=== PATIENT | female | born 1960 | race Caucasian/White ===

== ENCOUNTER → 2016-05-14 | Outpatient (CLI) | payer OTHER ==
[~2016-05-14] MED LIST: ALBU17IN INH; AMLO5TAB2 PO; ASMA16.7 INH; ATOR1TAB21 PO; BUSP10TA PO; CEFD300CAP PO; CETI10TA PO; CORT10TA PO; CORT5TAB2 PO; DRIS50002 PO; EFFE75CA75 PO; ESCI10TA2 PO; FLUD1TA PO; FLUTISP; FOLI1TAB2 PO; HYDR-3291 PO; HYDR5TAB59 PO; KEPP1000 PO; KEPP250T5 PO; LEXA1TAB2 PO; MONT10TA2 PO; OMEP20CA3 PO; OXYB5TA PO; PROA1AER INH; SING10TA32 PO; TRAZ50TA4 PO; TRAZO50TA PO; VITA100072 PO
[2016-05-14 14:00] LABS: BASO % 0.2 % (0.0-1.0); LARGE UNSTAINED CELL # 0.1 K/mm3 (0.0-0.4); LARGE UNSTAINED CELL % 1.9 % (0.0-4.0); LYMPH # 1.9 K/mm3 (1.5-4.5); LYMPH % 29.3 % (24.0-44.0); MEAN CORPUSCULAR HEMOGLOBIN 28.8 pg (27.0-33.0); MEAN CORPUSCULAR HGB CONC 32.5 g/dl (32.0-36.5); MEAN CORPUSCULAR VOLUME 88.8 fl (80.0-96.0); MONO # 0.3 K/mm3 (0.0-0.8); MONO % 4.9 % (0.0-5.0); NEUTROPHILS % 63.7 % (36.0-66.0); PLATELET COUNT, AUTOMATED 290 k/mm3 (150-450); RED CELL DISTRIBUTION WIDTH 12.9 % (11.5-14.5); WHITE BLOOD COUNT 6.3 K/mm3 (4.0-10.0)
[2016-05-14 14:32] LABS: FOLATE > 24.0 NG/ML; VITAMIN B12 LEVEL 1190 PG/ML
[2016-05-14 14:34] LABS: ALBUMIN 4.1 GM/DL (3.2-5.2); ALBUMIN/GLOBULIN RATIO 1.21 (1.00-1.93); ALKALINE PHOSPHATASE 131 U/L (45-117); ALT/SGPT 36 U/L (12-78); ANION GAP 7 MEQ/L (8-16); AST/SGOT 29 U/L (15-37); BILIRUBIN,TOTAL 0.3 MG/DL (0.2-1.0); BLOOD UREA NITROGEN 9 MG/DL (7-18); CALCIUM LEVEL 9.1 MG/DL (8.5-10.1); CARBON DIOXIDE LEVEL 30 MEQ/L (21-32); CHLORIDE LEVEL 103 MEQ/L (98-107); CHOLESTEROL LEVEL 163 MG/DL (<200); CREATININE FOR GFR 0.95 MG/DL (0.55-1.02); FREE T4 1.06 NG/DL (0.76-1.46); GLOMERULAR FILTRATION RATE > 60.0 (>51); GLUCOSE, FASTING 84 MG/DL (70-105); POTASSIUM SERUM 4.1 MEQ/L (3.5-5.1); SODIUM LEVEL 140 MEQ/L (136-145); TOTAL PROTEIN 7.5 GM/DL (6.4-8.2); TRIGLYCERIDES LEVEL 97 MG/DL (<150)
[2016-05-16 00:06] LABS: FREE KAPPA LIGHT CHAINS SERUM 28.03 mg/L (3.30-19.40); FREE LAMBDA LIGHT CHAINS SERUM 24.99 mg/L (5.71-26.30); KAPPA/LAMBDA RATIO SERUM 1.12 (0.26-1.65)
== END ==
LOC: M LAB 13:07
PROVIDERS: ATTEND Family Medicine
DX: Z00.00 Encounter for general adult medical examination without abnormal findings (principal)

== ENCOUNTER 2016-05-28 11:45 | Emergency (ER) | payer OTHER ==
--- NOTE | 2016-05-28 14:33 | EDDOCDS ---
Nurse's Notes [facility] Name: Amberly Moyer Age: 55 yrs Sex: Female : 1960 Arrival Date: 05/28/2016 Time: 11:45 Bed 8 Private MD: David Lopez Diagnosis: Acute upper respiratory infection, unspecified-viral Presentation: 05/28 11:51 Presenting complaint: Patient states: cough and cold for 3 to 4 days. today chest pain, kr3 'really bad'. Aspirin was not taken prior to arrival. Adult Sepsis Screening: The patient does not have new or worsening altered mentation. Patient's respiratory rate is less than 22. Systolic blood pressure is greater than 100. Patient has a qSOFA score of 0- Negative Sepsis Screen. Suicide/Homicide risk assessment- the patient denies having any suicidal and/or homicidal ideations and does not present with any other emotional, behavioral or mental health complaints. Status: Patient is not a sales representative facility services or dependent. Transition of care: patient was not received from another setting of care. 11:51 Acuity: ESTELA Level 2 kr3 11:51 Method Of Arrival: Wheelchair kr3 12:13 Red Flag criteria, patient assessed and taken directly to a bed. kr3 Triage Assessment: 11:55 General: Appears in no apparent distress, comfortable, Behavior is appropriate for age, kr3 cooperative. Pain: Location: chest Pain currently is 8 out of 10 on a pain scale. Quality of pain is described as sharp. HIV screening NA for this visit Offered previously. Cardiovascular: Chest pain is described as severe, radiates Does not radiate. episodes are continuous began at 7AM. Respiratory: Respiratory effort is even, unlabored, Reports shortness of breath cough that is. Derm: Skin is normal. Historical: - Allergies: no known allergies; - Home Meds: 1. albuterol sulfate 2.5 mg /3 mL (0.083 %) Inhl nebu 2. BuSpar 10 mg Oral tab 1 tab 3 times per day (Last dose: 05/28/2016) 3. folic acid 1 mg Oral tab once daily (Last dose: 05/28/2016) 4. Keppra 1000mg AM and 1250mg bedtime Oral tab every 12 hours (Last dose: 05/28/2016) 5. Prevacid 30 mg Oral cpDR 1 cap once daily (Last dose: 05/28/2016) 6. Singulair 10 mg Oral tab once daily (Last dose: 05/28/2016) 7. Vitamin D Unknown Oral Unknown 8. Zyrtec 10 mg Oral tab 1 tab once daily (Last dose: 05/28/2016) 9. Albuterol Unknown Inhl as needed (Last dose: 05/28/2016) - PMHx: Anxiety; Asthma; bladder problems; Depression; irregular heart beat; Seizure Disorder; - PSHx: none; - The history from nurses notes was reviewed: and I agree with what is documented. - Social history: Smoking status: Patient uses tobacco products, current every day smoker. No barriers to communication noted, The patient speaks fluent Arabic, Speaks appropriately for age. - : The pt / caregiver states he / she is not on anticoagulants. Home medication list is obtained from the patient. - Hospitalizations: : No recent hospitalization is reported. - Exposure Risk Screening:: None identified. - Immunization history:: All immunizations up-to-date. - Family history: Not pertinent. - Social history:: the patient is a non-smoker, the patient does not drink alcohol. Screenin:28 Screening information is obtained from the patient. Fall risk: No risks identified. bcj Assistance ADL's: requires no assistance with activities of daily living. Abuse/DV Screen: The patient / caregiver reports he/she is: not in a situation that causes fear, pain or injury. Nutritional screening: No deficits noted. Advance Directives: Currently, there is no health care proxy. home support is adequate. Assessment: 14:06 General: Appears in no apparent distress, comfortable, Behavior is cooperative. Pain: bcj Location: chest Pain currently is 5 out of 10 on a pain scale. Cardiovascular: Rhythm is sinus rhythm. Derm: Skin is pink, warm & dry. 14:30 General: Appears in no apparent distress, comfortable, Behavior is cooperative. mk4 Vital Signs: 11:47 BP 158 / 73; Pulse 63; Resp 18; Temp 98.6(O); Pulse Ox 98% on R/A; Weight 83.91 kg (R); ct3 Height 5 ft. 6 in. (167.64 cm) (R); Pain 8/10; 12:28 BP 144 / 77 (auto/); bcj 12:28 Pulse 62 MON; Pulse Ox 94% ; bcj 12:58 BP 190 / 75 (auto/); bcj 12:58 Pulse 60 MON; Pulse Ox 98% ; bcj 13:28 BP 152 / 71 (auto/); bcj 13:28 Pulse 58 MON; Pulse Ox 96% ; bcj 13:58 BP 154 / 72 (auto/); bcj 13:58 Pulse 54 MON; Pulse Ox 96% ; bcj 11:47 Body Mass Index 29.86 (83.91 kg, 167.64 cm) ct3 Vitals: 11:47 Log In Time: May 28, 2016 at 11:45. ct3 11:48 RN notified that patient meets Red Flag criteria. ct3 12:28 Refer to monitor trend for complete vital signs trends. [facility] ED Course: 11:47 Patient visited by Linda Evans PCA. ct3 11:47 David Lopez is Private Physician. ct3 11:47 Patient moved to Waiting ct3 11:51 Patient moved to 8 kr3 11:52 Triage Initiated kr3 12:05 Kalen Barcenas MD is Attending Physician. pc 12:05 Patient visited by Sherry Galaviz. nb2 12:05 EKG done. (by ED staff). Reviewed by Kalen Barcenas MD. nb2 12:10 Patient visited by Kalen Barcenas MD. pc 12:28 No apparent distress. Resting quietly. Awaiting disposition. bcj 12:28 The patient / caregiver is instructed regarding the plan of care and ED course. Cardiac bcj monitor on. Pulse ox on. NIBP on. 13:39 Patient visited by Aminata Grady, Quality Assurance Engineer. jlm 13:39 Assisted to bathroom. jlm 14:08 Patient visited by Kin Mullen RN. bcj 14:15 David Lopez is Referral Physician. pc 14:30 No IV's were initiated during this patient's visit. No procedures done that require mk4 assistance. Order Results: There are currently no results for this order. Outcome: 14:15 Discharge ordered by Provider. pc 14:30 Discharge Assessment: Patient awake, alert and oriented x 3. No cognitive and/or mk4 functional deficits noted. Patient verbalized understanding of disposition instructions. Patient awake and alert. Discharge Assessment: patient administered narcotics - no. The following High Risk Discharge criteria are identified: None. Condition: good Condition: stable. No special radiology studies were completed. Property sent home with patient. 14:32 Patient left the ED. mk4 Signatures: Kalen Barcenas MD MD pc Johnson, Bruce, RN RN Marie Marvin,RN RN kr3 Linda Evans, BERNICE VIDEO GAME TESTER ct3 June Schwartz RN RN mk4 Aminata Grady, Quality Assurance Engineer Unit Sherry Mcdonough [facility] MTDD
--- NOTE | 2016-05-28 14:33 | EDDOCDS ---
Physician Documentation [facility] Name: Amberly Moyer Age: 55 yrs Sex: Female : 1960 Arrival Date: 05/28/2016 Time: 11:45 Bed 8 Private MD: David Lopez Disposition: 05/28 14:14 Critical Care: Critical care not applicable. pc Disposition: 05/28/16 14:15 Discharged to Home/Self Care. Impression: Acute upper respiratory infection, unspecified - viral. - Condition is Stable. - Discharge Instructions: Upper Respiratory Infection, Adult. - Prescriptions for benzonatate 200 mg Oral Capsule - take 1 capsule by ORAL route 3 times per day As needed; 30 capsule. - Medication Reconciliation, Local Pharmacy Hours form. - Follow up: David Lopez; When: Call to arrange an appointment; Reason: Continuance of care. - Problem is an ongoing problem. - Symptoms are unchanged. HPI: 12:10 This 55 yrs old Female presents to ER via Wheelchair with complaints of Chest pc Pain. 12:10 The history is obtained from the patient. She has had a URI for 7 days, with a pc nonproductive cough. She saw her PCP and was diagnosed with a viral URI 5 days ago. She has episodes of coughing that causes her chest to hurt. She decided to come to the ED because a friend told her she was having a heart attack. 13:34 At their worst, the symptoms were a 8 out of 10. In the emergency department, the pc symptoms are a 2 out of 10. Historical: - Allergies: no known allergies; - Home Meds: 1. albuterol sulfate 2.5 mg /3 mL (0.083 %) [facility] 2. BuSpar 10 mg Oral tab 1 tab 3 times per day (Last dose: 05/28/2016) 3. folic acid 1 mg Oral tab once daily (Last dose: 05/28/2016) 4. Keppra 1000mg AM and 1250mg bedtime Oral tab every 12 hours (Last dose: 05/28/2016) 5. Prevacid 30 mg Oral cpDR 1 cap once daily (Last dose: 05/28/2016) 6. Singulair 10 mg Oral tab once daily (Last dose: 05/28/2016) 7. Vitamin D Unknown Oral Unknown 8. Zyrtec 10 mg Oral tab 1 tab once daily (Last dose: 05/28/2016) 9. Albuterol Unknown Inhl as needed (Last dose: 05/28/2016) - PMHx: Anxiety; Asthma; bladder problems; Depression; irregular heart beat; Seizure Disorder; - PSHx: none; - The history from nurses notes was reviewed: and I agree with what is documented. - Social history: Smoking status: Patient uses tobacco products, current every day smoker. No barriers to communication noted, The patient speaks fluent Danish, Speaks appropriately for age. - : The pt / caregiver states he / she is not on anticoagulants. Home medication list is obtained from the patient. - Hospitalizations: : No recent hospitalization is reported. - Exposure Risk Screening:: None identified. - Immunization history:: All immunizations up-to-date. - Family history: Not pertinent. - Social history:: the patient is a non-smoker, the patient does not drink alcohol. ROS: 13:34 All systems are negative except as listed. pc Exam: 13:34 General Appearance: no acute distress, alert. pc 13:34 EENT: normal eye inspection, ears, nose and throat normal, pharynx normal, mucous membranes moist 13:34 Neck: The exam reveals no acute abnormalities. ROM is normal and painless. No nuchal rigidity is noted.. 13:34 Respiratory: no respiratory distress, normal breath sounds, chest non-tender. 13:34 CVS: regular pulse rate, regular rhythm, normal S1 and S2, no murmurs, strong peripheral pulses. 13:34 Abdomen: soft, non-tender, no organomegaly, normal bowel sounds. 13:34 Back: normal inspection. 13:34 Skin: skin color is normal, warm, dry. 13:34 Extremities: The extremities have a grossly normal appearance, are non-tender, without acute ROM abnormalities. 13:34 Neuro: oriented x 3, cranial nerves normal as tested, no motor deficits, no sensory deficits. 13:34 Psych: normal mood. Vital Signs: 11:47 BP 158 / 73; Pulse 63; Resp 18; Temp 98.6(O); Pulse Ox 98% on R/A; Weight 83.91 kg / ct3 184.99 lbs (R); Height 5 ft. 6 in. (167.64 cm) (R); Pain 8/10; 12:28 BP 144 / 77 (auto/); bcj 12:28 Pulse 62 MON; Pulse Ox 94% ; bcj 12:58 BP 190 / 75 (auto/); bcj 12:58 Pulse 60 MON; Pulse Ox 98% ; bcj 13:28 BP 152 / 71 (auto/); bcj 13:28 Pulse 58 MON; Pulse Ox 96% ; bcj 13:58 BP 154 / 72 (auto/); bcj 13:58 Pulse 54 MON; Pulse Ox 96% ; bcj 11:47 Body Mass Index 29.86 (83.91 kg, 167.64 cm) ct3 MDM: 11:52 ECG WITH READING ER PHYS+CARDIAG ordered. EDMS 13:34 Differential Diagnosis: URI, chest pain only with coughing. pc 13:35 Plan: review triaged EKG, CXR. pc 13:36 Chest, 2 View (pa\E\lat) Ordered. EDMS 13:36 Test interpretation: EKG. pc 14:14 Data reviewed: old medical records, vital signs, nurses notes, EKG(s), all radiology pc studies and available results. Test interpretation: X-RAY - interpreted by Radiologist and personally reviewed, 2 view chest, no acute disease. The patient has been re-examined and re-evaluated. The clinical presentation did not require any ED treatment or interventions. Disposition: The historical points, examination findings, and any diagnostic results supporting the provided diagnosis, were discussed with the patient or legal guardian. The need for outpatient follow up with the provider listed on their discharge instructions was discussed. They were encouraged to return to [facility], or the nearest ED, if symptoms worsen/persist, or for any other questions/concerns. EC:36 Rate is 57 beats/min. Rhythm is irregular, Sinus bradycardia. QRS [place] is Normal. [place] pc interval is prolonged at 141 msec. QRS interval is normal. QT interval is normal. No Q waves. T waves are Normal. No ST changes noted. Clinical impression: Sinus bradycardia and RBBB. No change from previous ECG in March,. Signatures: Dispatcher [employer] EDMS Kalen Barcenas MD MD pc Robie, Kathleen,RN RN kr3 June Schwartz RN RN mk4 The chart was reviewed and I authenticate all verbal orders and agree with the evaluation and treatment provided.Corrections: (The following items were deleted from the chart) 13:35 13:34 Differential Diagnosis: URI, chest pain pc pc MTDD
--- NOTE | 2016-05-28 17:11 | REP ---
CHEST, TWO VIEWS: COMPARISON: 05/30/2011 There is no evidence of acute infiltrate. No pleural effusion is seen. The heart is normal in size. The mediastinal silhouette is unremarkable. The visualized osseous structures are intact. IMPRESSION: No acute pulmonary disease. Signed by Solis Eaton MD 05/29/2016 12:10 P
--- NOTE | 2016-05-29 08:10 | ECGEPIP ---
Stationary ECG Study [facility] - ED Test Date: 2016-05-28 Pat Name: NAVEEN SCOTT Department: Room: - Gender: F Ror Engineer: darrel : 1960 Requested By: Kalen Parekh Order Number: [id number] Reading MD: Kalen Barcenas Measurements Intervals [place] Rate: 57 P: 40 [place]: 182 QRS: 47 QRSD: 141 T: 10 QT: 437 QTc: 427 Interpretive Statements SINUS BRADYCARDIA RIGHT BUNDLE BRANCH BLOCK SIMILAR TO 03/28/16 Electronically Signed On 05-29-2016 8:10:18 EST by Kalen Barcenas
--- NOTE | 2016-05-30 15:33 | EDDOCDS ---
Physician Documentation [facility] Name: Amberly Moyer Age: 55 yrs Sex: Female : 1960 Arrival Date: 05/28/2016 Time: 11:45 Bed 8 Private MD: David Lopez Disposition: 05/28 14:14 Critical Care: Critical care not applicable. pc Disposition: 05/28/16 14:15 Discharged to Home/Self Care. Impression: Acute upper respiratory infection, unspecified - viral. - Condition is Stable. - Discharge Instructions: Upper Respiratory Infection, Adult. - Prescriptions for benzonatate 200 mg Oral Capsule - take 1 capsule by ORAL route 3 times per day As needed; 30 capsule. - Medication Reconciliation, Local Pharmacy Hours form. - Follow up: David Lopez; When: Call to arrange an appointment; Reason: Continuance of care. - Problem is an ongoing problem. - Symptoms are unchanged. HPI: 12:10 This 55 yrs old Female presents to ER via Wheelchair with complaints of Chest pc Pain. 12:10 The history is obtained from the patient. She has had a URI for 7 days, with a pc nonproductive cough. She saw her PCP and was diagnosed with a viral URI 5 days ago. She has episodes of coughing that causes her chest to hurt. She decided to come to the ED because a friend told her she was having a heart attack. 13:34 At their worst, the symptoms were a 8 out of 10. In the emergency department, the pc symptoms are a 2 out of 10. Historical: - Allergies: no known allergies; - Home Meds: 1. albuterol sulfate 2.5 mg /3 mL (0.083 %) [facility] 2. BuSpar 10 mg Oral tab 1 tab 3 times per day (Last dose: 05/28/2016) 3. folic acid 1 mg Oral tab once daily (Last dose: 05/28/2016) 4. Keppra 1000mg AM and 1250mg bedtime Oral tab every 12 hours (Last dose: 05/28/2016) 5. Prevacid 30 mg Oral cpDR 1 cap once daily (Last dose: 05/28/2016) 6. Singulair 10 mg Oral tab once daily (Last dose: 05/28/2016) 7. Vitamin D Unknown Oral Unknown 8. Zyrtec 10 mg Oral tab 1 tab once daily (Last dose: 05/28/2016) 9. Albuterol Unknown Inhl as needed (Last dose: 05/28/2016) - PMHx: Anxiety; Asthma; bladder problems; Depression; irregular heart beat; Seizure Disorder; - PSHx: none; - The history from nurses notes was reviewed: and I agree with what is documented. - Social history: Smoking status: Patient uses tobacco products, current every day smoker. No barriers to communication noted, The patient speaks fluent Taiwanese, Speaks appropriately for age. - : The pt / caregiver states he / she is not on anticoagulants. Home medication list is obtained from the patient. - Hospitalizations: : No recent hospitalization is reported. - Exposure Risk Screening:: None identified. - Immunization history:: All immunizations up-to-date. - Family history: Not pertinent. - Social history:: the patient is a non-smoker, the patient does not drink alcohol. ROS: 13:34 All systems are negative except as listed. pc Exam: 13:34 General Appearance: no acute distress, alert. pc 13:34 EENT: normal eye inspection, ears, nose and throat normal, pharynx normal, mucous membranes moist 13:34 Neck: The exam reveals no acute abnormalities. ROM is normal and painless. No nuchal rigidity is noted.. 13:34 Respiratory: no respiratory distress, normal breath sounds, chest non-tender. 13:34 CVS: regular pulse rate, regular rhythm, normal S1 and S2, no murmurs, strong peripheral pulses. 13:34 Abdomen: soft, non-tender, no organomegaly, normal bowel sounds. 13:34 Back: normal inspection. 13:34 Skin: skin color is normal, warm, dry. 13:34 Extremities: The extremities have a grossly normal appearance, are non-tender, without acute ROM abnormalities. 13:34 Neuro: oriented x 3, cranial nerves normal as tested, no motor deficits, no sensory deficits. 13:34 Psych: normal mood. Vital Signs: 11:47 BP 158 / 73; Pulse 63; Resp 18; Temp 98.6(O); Pulse Ox 98% on R/A; Weight 83.91 kg / ct3 184.99 lbs (R); Height 5 ft. 6 in. (167.64 cm) (R); Pain 8/10; 11:58 BP 158 / 86 (auto/); mk4 11:59 Pulse 60 MON; Pulse Ox 95% ; mk4 12:28 BP 144 / 77 (auto/); bcj 12:28 Pulse 62 MON; Pulse Ox 94% ; bcj 12:58 BP 190 / 75 (auto/); bcj 12:58 Pulse 60 MON; Pulse Ox 98% ; bcj 13:28 BP 152 / 71 (auto/); bcj 13:28 Pulse 58 MON; Pulse Ox 96% ; bcj 13:58 BP 154 / 72 (auto/); bcj 13:58 Pulse 54 MON; Pulse Ox 96% ; bcj 11:47 Body Mass Index 29.86 (83.91 kg, 167.64 cm) ct3 MDM: 11:52 ECG WITH READING ER PHYS+CARDIAG ordered. EDMS 13:34 Differential Diagnosis: URI, chest pain only with coughing. pc 13:35 Plan: review triaged EKG, CXR. pc 13:36 Chest, 2 View (pa\E\lat) Ordered. EDMS 13:36 Test interpretation: EKG. pc 14:14 Data reviewed: old medical records, vital signs, nurses notes, EKG(s), all radiology pc studies and available results. Test interpretation: X-RAY - interpreted by Radiologist and personally reviewed, 2 view chest, no acute disease. The patient has been re-examined and re-evaluated. The clinical presentation did not require any ED treatment or interventions. Disposition: The historical points, examination findings, and any diagnostic results supporting the provided diagnosis, were discussed with the patient or legal guardian. The need for outpatient follow up with the provider listed on their discharge instructions was discussed. They were encouraged to return to [facility], or the nearest ED, if symptoms worsen/persist, or for any other questions/concerns. 15:44 ECG/EKG was scanned into [employer] and attached to record. EC:36 Rate is 57 beats/min. Rhythm is irregular, Sinus bradycardia. QRS [place] is Normal. [place] pc interval is prolonged at 141 msec. QRS interval is normal. QT interval is normal. No Q waves. T waves are Normal. No ST changes noted. Clinical impression: Sinus bradycardia and RBBB. No change from previous ECG in March,. Signatures: Dispatcher [employer] EDMS Kalen Barcenas MD MD pc Barnhardt, Gloria, Marie MorenoRN RN kr3 June Schwartz RN RN mk4 The chart was reviewed and I authenticate all verbal orders and agree with the evaluation and treatment provided.Corrections: (The following items were deleted from the chart) 13:35 13:34 Differential Diagnosis: URI, chest pain [facility] Attachments: 15:44 ECG/EKG gb Chart Complete MTDD
--- NOTE | 2016-05-30 15:33 | EDDOCDS ---
Physician Documentation [facility] Name: Amberly Moyer Age: 55 yrs Sex: Female : 1960 Arrival Date: 05/28/2016 Time: 11:45 Bed 8 Private MD: David Lopez Disposition: 05/28 14:14 Critical Care: Critical care not applicable. pc Disposition: 05/28/16 14:15 Discharged to Home/Self Care. Impression: Acute upper respiratory infection, unspecified - viral. - Condition is Stable. - Discharge Instructions: Upper Respiratory Infection, Adult. - Prescriptions for benzonatate 200 mg Oral Capsule - take 1 capsule by ORAL route 3 times per day As needed; 30 capsule. - Medication Reconciliation, Local Pharmacy Hours form. - Follow up: David Lopez; When: Call to arrange an appointment; Reason: Continuance of care. - Problem is an ongoing problem. - Symptoms are unchanged. HPI: 12:10 This 55 yrs old Female presents to ER via Wheelchair with complaints of Chest pc Pain. 12:10 The history is obtained from the patient. She has had a URI for 7 days, with a pc nonproductive cough. She saw her PCP and was diagnosed with a viral URI 5 days ago. She has episodes of coughing that causes her chest to hurt. She decided to come to the ED because a friend told her she was having a heart attack. 13:34 At their worst, the symptoms were a 8 out of 10. In the emergency department, the pc symptoms are a 2 out of 10. Historical: - Allergies: no known allergies; - Home Meds: 1. albuterol sulfate 2.5 mg /3 mL (0.083 %) [facility] 2. BuSpar 10 mg Oral tab 1 tab 3 times per day (Last dose: 05/28/2016) 3. folic acid 1 mg Oral tab once daily (Last dose: 05/28/2016) 4. Keppra 1000mg AM and 1250mg bedtime Oral tab every 12 hours (Last dose: 05/28/2016) 5. Prevacid 30 mg Oral cpDR 1 cap once daily (Last dose: 05/28/2016) 6. Singulair 10 mg Oral tab once daily (Last dose: 05/28/2016) 7. Vitamin D Unknown Oral Unknown 8. Zyrtec 10 mg Oral tab 1 tab once daily (Last dose: 05/28/2016) 9. Albuterol Unknown Inhl as needed (Last dose: 05/28/2016) - PMHx: Anxiety; Asthma; bladder problems; Depression; irregular heart beat; Seizure Disorder; - PSHx: none; - The history from nurses notes was reviewed: and I agree with what is documented. - Social history: Smoking status: Patient uses tobacco products, current every day smoker. No barriers to communication noted, The patient speaks fluent Ghanaian, Speaks appropriately for age. - : The pt / caregiver states he / she is not on anticoagulants. Home medication list is obtained from the patient. - Hospitalizations: : No recent hospitalization is reported. - Exposure Risk Screening:: None identified. - Immunization history:: All immunizations up-to-date. - Family history: Not pertinent. - Social history:: the patient is a non-smoker, the patient does not drink alcohol. ROS: 13:34 All systems are negative except as listed. pc Exam: 13:34 General Appearance: no acute distress, alert. pc 13:34 EENT: normal eye inspection, ears, nose and throat normal, pharynx normal, mucous membranes moist 13:34 Neck: The exam reveals no acute abnormalities. ROM is normal and painless. No nuchal rigidity is noted.. 13:34 Respiratory: no respiratory distress, normal breath sounds, chest non-tender. 13:34 CVS: regular pulse rate, regular rhythm, normal S1 and S2, no murmurs, strong peripheral pulses. 13:34 Abdomen: soft, non-tender, no organomegaly, normal bowel sounds. 13:34 Back: normal inspection. 13:34 Skin: skin color is normal, warm, dry. 13:34 Extremities: The extremities have a grossly normal appearance, are non-tender, without acute ROM abnormalities. 13:34 Neuro: oriented x 3, cranial nerves normal as tested, no motor deficits, no sensory deficits. 13:34 Psych: normal mood. Vital Signs: 11:47 BP 158 / 73; Pulse 63; Resp 18; Temp 98.6(O); Pulse Ox 98% on R/A; Weight 83.91 kg / ct3 184.99 lbs (R); Height 5 ft. 6 in. (167.64 cm) (R); Pain 8/10; 11:58 BP 158 / 86 (auto/); mk4 11:59 Pulse 60 MON; Pulse Ox 95% ; mk4 12:28 BP 144 / 77 (auto/); bcj 12:28 Pulse 62 MON; Pulse Ox 94% ; bcj 12:58 BP 190 / 75 (auto/); bcj 12:58 Pulse 60 MON; Pulse Ox 98% ; bcj 13:28 BP 152 / 71 (auto/); bcj 13:28 Pulse 58 MON; Pulse Ox 96% ; bcj 13:58 BP 154 / 72 (auto/); bcj 13:58 Pulse 54 MON; Pulse Ox 96% ; bcj 11:47 Body Mass Index 29.86 (83.91 kg, 167.64 cm) ct3 MDM: 11:52 ECG WITH READING ER PHYS+CARDIAG ordered. EDMS 13:34 Differential Diagnosis: URI, chest pain only with coughing. pc 13:35 Plan: review triaged EKG, CXR. pc 13:36 Chest, 2 View (pa\E\lat) Ordered. EDMS 13:36 Test interpretation: EKG. pc 14:14 Data reviewed: old medical records, vital signs, nurses notes, EKG(s), all radiology pc studies and available results. Test interpretation: X-RAY - interpreted by Radiologist and personally reviewed, 2 view chest, no acute disease. The patient has been re-examined and re-evaluated. The clinical presentation did not require any ED treatment or interventions. Disposition: The historical points, examination findings, and any diagnostic results supporting the provided diagnosis, were discussed with the patient or legal guardian. The need for outpatient follow up with the provider listed on their discharge instructions was discussed. They were encouraged to return to [facility], or the nearest ED, if symptoms worsen/persist, or for any other questions/concerns. 15:44 ECG/EKG was scanned into noodls and attached to record. EC:36 Rate is 57 beats/min. Rhythm is irregular, Sinus bradycardia. QRS [place] is Normal. TN pc interval is prolonged at 141 msec. QRS interval is normal. QT interval is normal. No Q waves. T waves are Normal. No ST changes noted. Clinical impression: Sinus bradycardia and RBBB. No change from previous ECG in March,. Signatures: Dispatcher MedHo EDMS Kalen Barcenas MD MD pc Barnhardt, Gloria, Marie MorenoRN RN kr3 June Schwartz RN RN mk4 The chart was reviewed and I authenticate all verbal orders and agree with the evaluation and treatment provided.Corrections: (The following items were deleted from the chart) 13:35 13:34 Differential Diagnosis: URI, chest pain [facility] Attachments: 15:44 ECG/EKG gb Chart Complete MTDD
--- NOTE | 2016-05-30 15:33 | EDDOCDS ---
Nurse's Notes [facility] Name: Amberly Scott Age: 55 yrs Sex: Female : 1960 Arrival Date: 05/28/2016 Time: 11:45 Bed 8 Private MD: David Lopez Diagnosis: Acute upper respiratory infection, unspecified-viral Presentation: 05/28 11:51 Presenting complaint: Patient states: cough and cold for 3 to 4 days. today chest pain, kr3 'really bad'. Aspirin was not taken prior to arrival. Adult Sepsis Screening: The patient does not have new or worsening altered mentation. Patient's respiratory rate is less than 22. Systolic blood pressure is greater than 100. Patient has a qSOFA score of 0- Negative Sepsis Screen. Suicide/Homicide risk assessment- the patient denies having any suicidal and/or homicidal ideations and does not present with any other emotional, behavioral or mental health complaints. 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 Transition of care: patient was not received from another setting of care. 11:51 Acuity: ESTELA Level 2 kr3 11:51 Method Of Arrival: Wheelchair kr3 12:13 Red Flag criteria, patient assessed and taken directly to a bed. kr3 Triage Assessment: 11:55 General: Appears in no apparent distress, comfortable, Behavior is appropriate for age, kr3 cooperative. Pain: Location: chest Pain currently is 8 out of 10 on a pain scale. Quality of pain is described as sharp. HIV screening NA for this visit Offered previously. Cardiovascular: Chest pain is described as severe, radiates Does not radiate. episodes are continuous began at 7AM. Respiratory: Respiratory effort is even, unlabored, Reports shortness of breath cough that is. Derm: Skin is normal. Historical: - Allergies: no known allergies; - Home Meds: 1. albuterol sulfate 2.5 mg /3 mL (0.083 %) Inhl nebu 2. BuSpar 10 mg Oral tab 1 tab 3 times per day (Last dose: 05/28/2016) 3. folic acid 1 mg Oral tab once daily (Last dose: 05/28/2016) 4. Keppra 1000mg AM and 1250mg bedtime Oral tab every 12 hours (Last dose: 05/28/2016) 5. Prevacid 30 mg Oral cpDR 1 cap once daily (Last dose: 05/28/2016) 6. Singulair 10 mg Oral tab once daily (Last dose: 05/28/2016) 7. Vitamin D Unknown Oral Unknown 8. Zyrtec 10 mg Oral tab 1 tab once daily (Last dose: 05/28/2016) 9. Albuterol Unknown Inhl as needed (Last dose: 05/28/2016) - PMHx: Anxiety; Asthma; bladder problems; Depression; irregular heart beat; Seizure Disorder; - PSHx: none; - The history from nurses notes was reviewed: and I agree with what is documented. - Social history: Smoking status: Patient uses tobacco products, current every day smoker. No barriers to communication noted, The patient speaks fluent Romanian, Speaks appropriately for age. - : The pt / caregiver states he / she is not on anticoagulants. Home medication list is obtained from the patient. - Hospitalizations: : No recent hospitalization is reported. - Exposure Risk Screening:: None identified. - Immunization history:: All immunizations up-to-date. - Family history: Not pertinent. - Social history:: the patient is a non-smoker, the patient does not drink alcohol. Screenin:28 Screening information is obtained from the patient. Fall risk: No risks identified. bcj Assistance ADL's: requires no assistance with activities of daily living. Abuse/DV Screen: The patient / caregiver reports he/she is: not in a situation that causes fear, pain or injury. Nutritional screening: No deficits noted. Advance Directives: Currently, there is no health care proxy. home support is adequate. Assessment: 14:06 General: Appears in no apparent distress, comfortable, Behavior is cooperative. Pain: bcj Location: chest Pain currently is 5 out of 10 on a pain scale. Cardiovascular: Rhythm is sinus rhythm. Derm: Skin is pink, warm & dry. 14:30 General: Appears in no apparent distress, comfortable, Behavior is cooperative. mk4 Vital Signs: 11:47 BP 158 / 73; Pulse 63; Resp 18; Temp 98.6(O); Pulse Ox 98% on R/A; Weight 83.91 kg (R); ct3 Height 5 ft. 6 in. (167.64 cm) (R); Pain 8/10; 11:58 BP 158 / 86 (auto/); mk4 11:59 Pulse 60 MON; Pulse Ox 95% ; mk4 12:28 BP 144 / 77 (auto/); bcj 12:28 Pulse 62 MON; Pulse Ox 94% ; bcj 12:58 BP 190 / 75 (auto/); bcj 12:58 Pulse 60 MON; Pulse Ox 98% ; bcj 13:28 BP 152 / 71 (auto/); bcj 13:28 Pulse 58 MON; Pulse Ox 96% ; bcj 13:58 BP 154 / 72 (auto/); bcj 13:58 Pulse 54 MON; Pulse Ox 96% ; bcj 11:47 Body Mass Index 29.86 (83.91 kg, 167.64 cm) ct3 Vitals: 11:47 Log In Time: May 28, 2016 at 11:45. ct3 11:48 RN notified that patient meets Red Flag criteria. ct3 12:28 Refer to monitor trend for complete vital signs trends. j ED Course: 11:47 Patient visited by Linda Evans PCA. ct3 11:47 David Lopez is Private Physician. ct3 11:47 Patient moved to Waiting ct3 11:51 Patient moved to 8 kr3 11:52 Triage Initiated kr3 12:05 Kalen Barcenas MD is Attending Physician. pc 12:05 Patient visited by Sherry Galaviz. nb2 12:05 EKG done. (by ED staff). Reviewed by Kalen Barcenas MD. nb2 12:10 Patient visited by Kalen Barcenas MD. pc 12:28 No apparent distress. Resting quietly. Awaiting disposition. bcj 12:28 The patient / caregiver is instructed regarding the plan of care and ED course. Cardiac j monitor on. Pulse ox on. NIBP on. 13:39 Patient visited by Aminata Grady, Athletic Turf Worker. jlm 13:39 Assisted to bathroom. jlm 14:08 Patient visited by Kin Mullen, TASHA. bcj 14:15 David Lopez is Referral Physician. pc 14:30 No IV's were initiated during this patient's visit. No procedures done that require 4 assistance. 15:44 ECG/EKG was scanned into [employer] and attached to record. gb 17:41 Chest, 2 View (pa\E\lat) Returned. EDMS 05/29 08:15 EKG-ADULT Returned. EDMS Order Results: Radiology Order: EKG-ADULT Test: EKG-ADULT REASON FOR EXAMINATION: Chest Pain; Stationary ECG Study; [facility] - ED; ; Test Date: 2016-05-28; Pat Name: AMEBRLY SCOTT Department:; Room: -; Gender: F Rippler: darrel; : 1960 Requested By: Kalen Parekh; Order Number: [id number] Reading MD: Kalen Barcenas; Measurements; Intervals [place]; Rate: 57 P: 40; IN: 182 QRS: 47; QRSD: 141 T: 10; QT: 437; QTc: 427; Interpretive Statements; SINUS BRADYCARDIA; RIGHT BUNDLE BRANCH BLOCK; SIMILAR TO 03/28/16; Electronically Signed On 05-29-2016 8:10:18 EST by Kalen Barcenas; Radiology Order: Chest, 2 View (pa\E\lat) Test: Chest, 2 View (pa\E\lat) REASON FOR EXAMINATION: Cough; CHEST, TWO VIEWS:; ; COMPARISON: 05/30/2011; ; There is no evidence of acute infiltrate.; ; No pleural effusion is seen.; ; The heart is normal in size.; ; The mediastinal silhouette is unremarkable.; ; The visualized osseous structures are intact.; ; IMPRESSION:; ; No acute pulmonary disease.; ; ; Signed by; Solsi Eaton MD 05/29/2016 12:10 P; Outcome: 05/28 14:15 Discharge ordered by Provider. 14:30 Discharge Assessment: Patient awake, alert and oriented x 3. No cognitive and/or mk4 functional deficits noted. Patient verbalized understanding of disposition instructions. Patient awake and alert. Discharge Assessment: patient administered narcotics - no. The following High Risk Discharge criteria are identified: None. Condition: good Condition: stable. No special radiology studies were completed. Property sent home with patient. 14:32 Patient left the ED. mk4 Signatures: Dispatcher [employer] EDAZ Kalen Barcenas MD MD pc Johnson, Bruce, RN RN Kate Rivera, Reg Marie Marcial,RN RN kr3 Linda Evans, MUSHROOM FARMER MUSHROOM FARMER ct3 June Schwartz RN RN [email or web address] Aminata Grady, Athletic Turf Worker Unit Pete Mcdonoughle nb2 Chart Complete MTDD
== END 2016-05-28 14:32 | disposition home or self-care (01) ==
LOC: M ED 11:45
DX: J06.9 Acute upper respiratory infection, unspecified (principal); R00.1 Bradycardia, unspecified; I45.10 Unspecified right bundle-branch block; J45.909 Unspecified asthma, uncomplicated; G40.909 Epilepsy, unspecified, not intractable, without status epilepticus; F41.9 Anxiety disorder, unspecified; N32.9 Bladder disorder, unspecified; Z79.899 Other long term (current) drug therapy

== ENCOUNTER → 2016-08-21 | Outpatient (CLI) | payer OTHER ==
[~2016-08-21] VITALS: Ht 172.7 cm; Wt 90.7 kg
[~2016-08-21] MED LIST changes: +LIDOCAINE 2% INJ 100 MG/5 ML SDV (FOR ANES.) As Ordered ONE; +PROPOFOL 200 MG/20 ML VIAL As Ordered ONE
--- NOTE | 2016-08-21 14:36 | ROOR ---
Patient Name: Amberly Moyer Procedure Date: 08/21/2016 1:47 PM Date of : 1960 Age: 55 Room: [facility] Gender: Female Note Status: Finalized Procedure: Upper GI endoscopy Indications: Functional Dyspepsia, Suspected esophageal reflux Providers: Martín Everett MD Referring MD: COCO TRINIDAD MD Requesting Provider: COCO TRINIDAD MD Medicines: Monitored Anesthesia Care Complications: No immediate complications. Procedure: Pre-Anesthesia Assessment: - Prior to the procedure, a History and Physical was performed, and patient medications and allergies were reviewed. The patient is competent. The risks and benefits of the procedure and the sedation options and risks were discussed with the patient. All questions were answered and informed consent was obtained. Patient identification and proposed procedure were verified by the physician, the nurse and the anesthesiologist in the endoscopy suite. Mental Status Examination: alert and oriented. Airway Examination: normal oropharyngeal airway and neck mobility. Respiratory Examination: clear to auscultation. CV Examination: normal. Prophylactic Antibiotics: The patient does not require prophylactic antibiotics. Prior Anticoagulants: The patient has taken no previous anticoagulant or antiplatelet agents. ASA Grade Assessment: II - A patient with mild systemic disease. After reviewing the risks and benefits, the patient was deemed in satisfactory condition to undergo the procedure. The anesthesia plan was to use monitored anesthesia care (MAC). Immediately prior to administration of medications, the patient was re-assessed for adequacy to receive sedatives. The heart rate, respiratory rate, oxygen saturations, blood pressure, adequacy of pulmonary ventilation, and response to care were monitored throughout the procedure. The physical status of the patient was re-assessed after the procedure. The Endoscope was introduced through the mouth, and advanced to the second part of duodenum. The upper GI endoscopy was technically difficult and complex due to poor endoscopic visualization and significant looping. The patient tolerated the procedure well. Findings: The examined esophagus was normal. Estimated blood loss: none. The entire examined stomach was normal. Estimated blood loss: none. Estimated blood loss: none. The second portion of the duodenum was normal. Impression: - Normal esophagus. - Normal stomach. - Normal second portion of the duodenum. - No specimens collected. Recommendation: - Discharge patient to home (ambulatory). - Continue present medications. Martín Everett MD Martín Everett MD 08/21/2016 2:36:34 PM This report has been signed electronically. Number of Addenda: 0 Note Initiated On: 08/21/2016 1:47 PM Estimated Blood Loss: Estimated blood loss: none.
--- NOTE | 2016-08-21 14:39 | ROOR ---
Patient Name: Amberly Moyer Procedure Date: 08/21/2016 1:52 PM Date of : 1960 Age: 55 Room: [facility] Gender: Female Note Status: Finalized Procedure: Colonoscopy Indications: High risk colon cancer surveillance: Personal history of colonic polyps Providers: Martín Everett MD Referring MD: COCO TRINIDAD MD Requesting Provider: Medicines: Monitored Anesthesia Care Complications: No immediate complications. Procedure: Pre-Anesthesia Assessment: - Prior to the procedure, a History and Physical was performed, and patient medications and allergies were reviewed. The patient is competent. The risks and benefits of the procedure and the sedation options and risks were discussed with the patient. All questions were answered and informed consent was obtained. Patient identification and proposed procedure were verified by the physician, the nurse and the anesthesiologist in the endoscopy suite. Mental Status Examination: alert and oriented. Airway Examination: normal oropharyngeal airway and neck mobility. Respiratory Examination: clear to auscultation. CV Examination: normal. Prophylactic Antibiotics: The patient does not require prophylactic antibiotics. Prior Anticoagulants: The patient has taken no previous anticoagulant or antiplatelet agents. ASA Grade Assessment: II - A patient with mild systemic disease. After reviewing the risks and benefits, the patient was deemed in satisfactory condition to undergo the procedure. The anesthesia plan was to use monitored anesthesia care (MAC). Immediately prior to administration of medications, the patient was re-assessed for adequacy to receive sedatives. The heart rate, respiratory rate, oxygen saturations, blood pressure, adequacy of pulmonary ventilation, and response to care were monitored throughout the procedure. The physical status of the patient was re-assessed after the procedure. The Colonoscope was introduced through the anus and advanced to the cecum, identified by appendiceal orifice and ileocecal valve. The colonoscopy was technically difficult and complex due to poor endoscopic visualization and significant looping. The patient tolerated the procedure well. The quality of the bowel preparation was fair. Findings: The perianal and digital rectal examinations were normal. Multiple medium-mouthed diverticula were found in the sigmoid colon, descending colon and splenic flexure. The entire examined colon appeared normal. Impression: - Preparation of the colon was fair. - Diverticulosis in the sigmoid colon, in the descending colon and at the splenic flexure. - The entire examined colon is normal. - No specimens collected. Recommendation: - Discharge patient to home (ambulatory). - Repeat colonoscopy in 5 years for surveillance. Martín Everett MD Martín Everett MD 08/21/2016 2:38:50 PM This report has been signed electronically. Number of Addenda: 0 Note Initiated On: 08/21/2016 1:52 PM Estimated Blood Loss: Estimated blood loss: none.
[2016-08-21 15:08] VITALS: BP 130/80
== END ==
LOC: M OPP 12:55
PROVIDERS: ATTEND Surgery
DX: Z12.11 Encounter for screening for malignant neoplasm of colon (principal); Z86.010 Personal history of colon polyps; Z80.0 Family history of malignant neoplasm of digestive organs; K57.30 Diverticulosis of large intestine without perforation or abscess without bleeding; K30 Functional dyspepsia; K21.9 Gastro-esophageal reflux disease without esophagitis; F17.200 Nicotine dependence, unspecified, uncomplicated; J45.909 Unspecified asthma, uncomplicated; G40.909 Epilepsy, unspecified, not intractable, without status epilepticus; D53.1 Other megaloblastic anemias, not elsewhere classified; E78.5 Hyperlipidemia, unspecified; F32.9 Major depressive disorder, single episode, unspecified; F41.9 Anxiety disorder, unspecified; E55.9 Vitamin D deficiency, unspecified; G47.00 Insomnia, unspecified; Z79.899 Other long term (current) drug therapy; Z91.011 Allergy to milk products

== ENCOUNTER 2016-09-01 21:50 | Inpatient (IN) | payer OTHER ==
[~2016-09-01] VITALS: Ht 172.7 cm; Wt 92.9 kg
[~2016-09-01 21:50] MED LIST changes: -LIDOCAINE 2% INJ 100 MG/5 ML SDV (FOR ANES.) As Ordered ONE; -PROPOFOL 200 MG/20 ML VIAL As Ordered ONE
[2016-09-01] MEDS ORDERED: GI COCKTAIL 50ML BTL(HYOSCYAMINE/MAALOX/LIDOCAINE VISCOUS)(1:3:1) PO ONE (22:45)
[2016-09-01] MEDS ORDERED: SUCRALFATE 1 GM TAB PO ONE (22:45)
[2016-09-01] MEDS ORDERED: ONDANSETRON 4MG/2ML VIAL (J2405) IV ONE (22:45)
[2016-09-01] MEDS ORDERED: GASTROGRAFIN SOLUTION 30ML (Q9963) As Ordered ONE (22:52)
[2016-09-01] MEDS ORDERED: GASTROGRAFIN SOLUTION 30ML (Q9963) PO ONE ×2 (23:00→23:30)
[2016-09-01 23:12] LABS: BASO % 0.2 % (0.0-1.0); EOS % 0.4 % (0.0-3.0); LARGE UNSTAINED CELL # 0.1 K/mm3 (0.0-0.4); LARGE UNSTAINED CELL % 1.5 % (0.0-4.0); LYMPH # 1.7 K/mm3 (1.5-4.5); LYMPH % 20.6 % (24.0-44.0); MEAN CORPUSCULAR HEMOGLOBIN 29.3 pg (27.0-33.0); MEAN CORPUSCULAR HGB CONC 34.9 g/dl (32.0-36.5); MONO # 0.8 K/mm3 (0.0-0.8); MONO % 10.5 % (0.0-5.0); NEUTROPHILS # 5.2 K/mm3 (1.8-7.7); NEUTROPHILS % 66.8 % (36.0-66.0); PLATELET COUNT, AUTOMATED 343 k/mm3 (150-450); RED CELL DISTRIBUTION WIDTH 12.9 % (11.5-14.5); WHITE BLOOD COUNT 7.7 K/mm3 (4.0-10.0)
[2016-09-01] MEDS ORDERED: ONDANSETRON 4 MG ORAL DISINTEGRATING TAB (S0181) PO ONE (23:15)
[2016-09-01 23:36] LABS: ALBUMIN 4.1 GM/DL (3.2-5.2); ALBUMIN/GLOBULIN RATIO 1.14 (1.00-1.93); ALKALINE PHOSPHATASE 130 U/L (45-117); ALT/SGPT 27 U/L (12-78); ANION GAP 7 MEQ/L (8-16); AST/SGOT 30 U/L (15-37); BILIRUBIN,DIRECT 0.1 MG/DL (0.0-0.2); BILIRUBIN,TOTAL 0.5 MG/DL (0.2-1.0); BLOOD UREA NITROGEN 3 MG/DL (7-18); CALCIUM LEVEL 9.1 MG/DL (8.5-10.1); CARBON DIOXIDE LEVEL 28 MEQ/L (21-32); CHLORIDE LEVEL 94 MEQ/L (98-107); GLOMERULAR FILTRATION RATE > 60.0 (>51); GLUCOSE, FASTING 109 MG/DL (70-105); POTASSIUM SERUM 3.4 MEQ/L (3.5-5.1); SODIUM LEVEL 129 MEQ/L (136-145); TOTAL PROTEIN 7.7 GM/DL (6.4-8.2)
[2016-09-01] MEDS ORDERED: KCL 20MEQ in NS 1000ML 1,000 ML IV SCH (23:45)
[2016-09-01] MEDS ORDERED: POTASSIUM CHLORIDE 10 MEQ SR TABLET PO ONE (23:45)
[2016-09-02] MEDS ORDERED: ISOVUE-370 76% 100ML VIAL (Q9967) As Ordered ONE (00:33)
[2016-09-02 00:59] LABS: T UPTAKE 38 % (30-39)
[2016-09-02 01:08] LABS: OSMOLALITY URINE 106 MOSM/KG (500-800)
--- NOTE | 2016-09-02 02:30 | REPUSA ---
CLINICAL HISTORY: Abdominal pain. Nausea. TECHNIQUE: Multiple axial, sagittal and coronal CT images were obtained through the abdomen and pelvi s after administration of oral and intravenous contrast material. Images were obtained before and aft er IV contrast administration. COMMENTS: The liver is of uniform decreased attenuation without mass or defect. There is no intra or extrahepat ic biliary ductal dilatation. The spleen is normal. The gallbladder is within normal limits. The panc reas is of normal contour and attenuation characteristics. There is no evidence of adrenal mass. Both kidneys demonstrate prompt and equal nephrograms. The kidneys are normal in size, shape and conf iguration. There is no evidence of renal or ureteral mass. No renal or ureteral calculi are identifie d. There is no hydroureter or hydronephrosis. No evidence for appendicitis. There is mild proximal small bowel wall thickening. No evidence for sm all or large bowel obstruction. There is no evidence of abdominal ascites or lymphadenopathy. There is no evidence of intrinsic or extrinsic bladder mass. There is no pelvic ascites or lymphadeno shakira. Prior hysterectomy. Uncomplicated colonic diverticulosis. Mild large bowel fecal stasis. Images of the lung bases show no evidence of pleural or parenchymal mass. There are no pleural effusi ons. The bony structures are free of lytic or blastic lesions. Small sliding-type hiatal hernia. IMPRESSION: Mild changes of enteritis. Small sliding hiatal hernia. Fatty liver infiltration. Thank you for your kind referral of this patient.
[2016-09-02] MEDS ORDERED: MORPHINE 2 MG/ML 1ML SYRINGE IV PRN (03:15)
[2016-09-02] MEDS ORDERED: PERCOCET 5MG/325MG TAB PO PRN (03:15)
[2016-09-02] MEDS ORDERED: ONDANSETRON 4MG/2ML VIAL (J2405) IV PRN (03:15)
[2016-09-02] MEDS ORDERED: ACETAMINOPHEN TAB 650MG DOSE (2X325MG) PO PRN (03:15)
[2016-09-02] MEDS ORDERED: LEXA1TAB2 PO (03:17)
[2016-09-02] MEDS ORDERED: BUSP10TA PO (03:17)
[2016-09-02] MEDS ORDERED: SENOKOT S TAB PO PRN (03:30)
[2016-09-02] MEDS ORDERED: FLEET ENEMA PR PRN (03:30)
[2016-09-02] MEDS ORDERED: MOM 30ML SUSPENSION UDC PO PRN (03:30)
[2016-09-02 03:33] LABS: URIC ACID 4.6 MG/DL (2.6-6.0)
[2016-09-02] MEDS ORDERED: OXYB10TA PO (03:33)
[2016-09-02] MEDS ORDERED: INCR1INH IN (03:34)
[2016-09-02] MEDS ORDERED: SENOKOT S TAB PO ONE (04:15)
[2016-09-02] MEDS ORDERED: MOM 30ML SUSPENSION UDC PO ONE (04:15)
[2016-09-02] MEDS: NS 1,000 ML IV SCH ×2 (04:15→13:15)
[2016-09-02] MEDS ORDERED: ALBUTEROL 90 MCG/ACT 8GM HFA INHALER INH PRN (04:15)
[2016-09-02] MEDS: CIPROFLOXACIN 400 MG in APPROPRIATE DILUENT 1 EA IV SCH ×2 (04:26→16:02)
[2016-09-02] MEDS ORDERED: hydrOXYzine 25 MG TAB PO PRN (04:30)
[2016-09-02] MEDS ORDERED: IPRATROPIUM 0.5MG/ALBUTEROL 2.5MG INH SOL UD 3ML (DUONEB)(J7620) NEB PRN (04:30)
[2016-09-02] MEDS ORDERED: hydrOXYzine 25 MG TAB PO ONE (04:30)
[2016-09-02] MEDS ORDERED: GI COCKTAIL 50ML BTL(HYOSCYAMINE/MAALOX/LIDOCAINE VISCOUS)(1:3:1) PO PRN (04:45)
[2016-09-02 05:08] LABS: BASO % 0.1 % (0.0-1.0); LARGE UNSTAINED CELL # 0.1 K/mm3 (0.0-0.4); LARGE UNSTAINED CELL % 2.3 % (0.0-4.0); LYMPH # 2.1 K/mm3 (1.5-4.5); LYMPH % 38.6 % (24.0-44.0); MEAN CORPUSCULAR HEMOGLOBIN 29.2 pg (27.0-33.0); MEAN CORPUSCULAR HGB CONC 34.6 g/dl (32.0-36.5); MEAN CORPUSCULAR VOLUME 84.6 fl (80.0-96.0); MONO # 0.6 K/mm3 (0.0-0.8); MONO % 10.8 % (0.0-5.0); NEUTROPHILS # 2.5 K/mm3 (1.8-7.7); NEUTROPHILS % 48.1 % (36.0-66.0); PLATELET COUNT, AUTOMATED 346 k/mm3 (150-450); RED CELL DISTRIBUTION WIDTH 13.1 % (11.5-14.5); WHITE BLOOD COUNT 5.1 K/mm3 (4.0-10.0)
[2016-09-02 05:32] LABS: ANION GAP 10 MEQ/L (8-16); BLOOD UREA NITROGEN 3 MG/DL (7-18); CALCIUM LEVEL 9.1 MG/DL (8.5-10.1); CARBON DIOXIDE LEVEL 27 MEQ/L (21-32); CHLORIDE LEVEL 96 MEQ/L (98-107); CREATININE FOR GFR 0.76 MG/DL (0.55-1.02); GLOMERULAR FILTRATION RATE > 60.0 (>51); GLUCOSE, FASTING 109 MG/DL (70-105); MAGNESIUM LEVEL 2.3 MG/DL (1.8-2.4); POTASSIUM SERUM 3.8 MEQ/L (3.5-5.1); SODIUM LEVEL 133 MEQ/L (136-145)
[2016-09-02 05:36] VITALS: BP 111/67
[2016-09-02] MEDS: metroNIDAZOLE 500 MG in APPROPRIATE DILUENT 1 EA IV SCH ×3 (06:03→20:41)
--- NOTE | 2016-09-02 07:11 | ECGEPIP ---
Stationary ECG Study [facility] - ED Test Date: 2016-09-01 Pat Name: NAVEEN SCOTT Department: Room: [place] [address] Gender: F Cv/Cvn Cv Tsc System Operator: kanika : 1960 Requested By: ABHISHEK MORGAN Order Number: [id number] Reading MD: Kalen Barcenas Measurements Intervals [place] Rate: 76 P: 47 AK: 199 QRS: 49 QRSD: 150 T: -12 QT: 413 QTc: 467 Interpretive Statements SINUS RHYTHM RIGHT BUNDLE BRANCH BLOCK SIMILAR TO 05/28/16 Electronically Signed On 09-02-2016 7:11:16 EDT by Kalen Barcenas
[2016-09-02 07:51] VITALS: BP 118/67
--- NOTE | 2016-09-02 08:10 | HPE ---
DATE OF ADMISSION: 09/01/2016 PRIMARY CARE PHYSICIAN: Dr. David Lopez. INPATIENT HOSPITALIST ATTENDING: Dr. Mc Snow. CHIEF COMPLAINT: Abdominal pain. HISTORY OF PRESENT ILLNESS: This is a 55-year-old female with history significant for diverticular disease on colonoscopy by Dr. Everett 08/21/2016 with normal EGD, sliding type hiatal hernia on CT abdomen and pelvis 09/02/2016, hypertension, depression, anxiety, seizure disorder, asthma, dyslipidemia, vitamin D deficiency, appendectomy, partial hysterectomy and foot surgery presented to the emergency room with ongoing periumbilical abdominal pain for the past 2 months with 2 day history of increasing pain described as crampy and one episode of nausea and vomiting at home. Patient did not feel well all day prior to presentation. With every meal, she felt like her throat was closing, thought that she was having a seizure and decided to come to the emergency room for evaluation. Patient otherwise denies any fever or chills, weight gain, weight loss, dysuria, urgency, frequency, chest pain, pressure, tightness, shortness of breath, palpitations, lightheadedness, near syncope, changes in vision, headaches, nasal congestion, sore throat. Previous EGD was negative with CT showing a small hiatal hernia. Patient is on chronic Prilosec. She has been having some constipation, no diarrhea. No radiation of her abdominal pain in the periumbilical area. No medication taken at home. She also complains of bilateral feet pruritus and burning sensation between the toes not previously treated. Hospitalist was called for admission for her enteritis with periumbilical pain and evaluation of hyponatremia, sodium level of 129. PAST MEDICAL HISTORY: Seizure disorder. Asthma. Reflux disease. 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 Hyperlipidemia. Depression. Anxiety. Vitamin D deficiency. Insomnia. Allergic rhinitis. PAST SURGICAL HISTORY: Bilateral 5th toe amputation due to defect. Hysterectomy, still has tube and ovaries. Colonoscopy times four. Breast biopsy on the left, one on the right, benign. Appendectomy age 17. Recent EGD, colonoscopy showing diverticular disease, small sliding type hiatal hernia on chronic Prilosec. HOME MEDICATIONS: Vitamin D 50,000 units weekly. Incruse Ellipta 62.5 inhaled daily Atorvastatin 20 mg daily at bedtime BuSpar 10 mg three times daily Cetirizine 10 mg daily every morning Vitamin B12 1000 mcg daily folic acid 1 mg daily Keppra 1000 mg twice daily, 250 mg daily at bedtime Montelukast 10 mg daily at bedtime omeprazole 20 daily every morning Oxybutynin 10 mg daily at bedtime ALLERGIES: No know drug allergies. FAMILY HISTORY: One brother . Father due to diabetes, hypertension, heart disease. Mother due to colon cancer, had hypertension and coronary artery disease (CAD). SOCIAL HISTORY: Previously smoked a pack a day for 36 years. No alcohol or drug use. REVIEW OF SYSTEMS: Twelve point system aside from positive findings on HPI. PHYSICAL EXAMINATION: Blood pressure 136/80, pulse 72 sinus, respiratory 18, afebrile, 96% on room air. Generally, patient is awake, alert, oriented times three, answering questions appropriately. Anicteric sclera, no jaundice. Pupils round, reactive to light and accommodation. Extraocular muscles are intact. Normocephalic, atraumatic. Moist mucous membranes. Neck supple, full range of motion. No cervical lymphadenopathy, thyromegaly or jugular venous distention. Lungs are clear to auscultation, no wheezing, rales or rhonchi. Heart: S1, S2. Sinus rhythm. Abdomen: Soft. Slightly distended. No rebound, guarding. Positive bowel sounds all four quadrants. Slightly tender in the periumbilical area but no rebound, guarding. No CVA tenderness. Extremities: No cyanosis, clubbing or pitting edema. Some mild erythema between the toes. No rash or papular eruptions are noted. Bilateral fifth toe amputations due to defect. White count 7.7, hemoglobin 13, hematocrit 37, platelet count 343. Sodium 129, baseline sodium 140, potassium 3.4, chloride 94, bicarbonate 28, BUN 3, creatinine 0.8, glucose 109. Lactic acid 1.2. Calcium 9.1. Total bilirubin 0.5, direct bilirubin 0.1, AST 30, ALT 27, alkaline phosphatase 130, total CK 154, troponin less than 0.02, total protein 7.7, albumin 4.1, lipase 59, TSH 2. Microbiology: None. CT abdomen and pelvis: Mild enteritis, fecal stasis, small sliding hiatal hernia. ASSESSMENT AND PLAN: This is a 55-year-old female with prior history of seizure disorder, depression, anxiety, asthma, reflux, megaloblastic anemia secondary to folic acid deficiency, depression, anxiety, vitamin D deficiency, insomnia, allergic rhinitis, previous EGD was negative, CT shows small sliding hiatal hernia, colonoscopy with diverticular disease, bilateral fifth toe amputation due to defect, admitted due to complaints of periumbilical pain, nausea, vomiting, found to have hyponatremia, sodium level of 129, hypokalemia, potassium of 3.4. CT abdomen and pelvis showing enteritis. Patient will be admitted for observation assigned to Dr. Mc Snow. IMPRESSION: 1. Abdominal pain secondary to enteritis and fecal stasis. Patient admits to having some constipation. EGD colonoscopy were unremarkable on 08/21/[address] Everett. Patient was found to have a small sliding type hiatal hernia on CT abdomen and pelvis. May benefit from continuation of proton pump inhibitor and potentially Carafate 1 gram before meals and at bedtime for symptomatic relief. GI cocktail as needed. Patient will be given IV Cipro and Flagyl to be continued orally as outpatient once tolerates an oral diet. Currently on intravenous fluids and liquid diet. For fecal stasis, patient has been given a bowel regimen and encouraged to ambulate. 2. Hyponatremia most likely secondary to vomiting and nausea, therefore will recheck basic metabolic panel, recheck sodium every 6 hours until normalized, avoid sudden increase in sodium more than 10 mEq of over 24 hour period. TSH is within normal. Chest x-ray: No acute abnormalities. 3. History of seizure disorder, resume home dose of Keppra. Check Levetiracetam level. 4. Tinea pedis. Tolnaftate topically for 10 days. 5. History of asthma, resume home dose of Singulair 10 mg daily. Nebulizer treatments as needed. 6. Hyperlipidemia, continue on Lipitor. Check lipid profile in the morning. 7. Urine incontinence. Continue Ditropan. 8. Allergic rhinitis, continue Zyrtec. 9. Megaloblastic secondary to folic acid deficiency. Continue with folic acid and vitamin B12. 10. Deep venous thrombosis (DVT) prophylaxis with Lovenox and compression stockings.
[2016-09-02] MEDS: levETIRAcetam 250MG TABLET (KEPPRA) PO SCH ×3 (08:48→20:40)
[2016-09-02] MEDS: ENOXAPARIN 40 MG/0.4 ML SYRINGE (J1650) SC SCH (08:48)
[2016-09-02] MEDS: CYANOCOBALAMIN 500 MCG TAB PO SCH (08:48)
[2016-09-02] MEDS: OMEPRAZOLE 20 MG CAP PO SCH (08:48)
[2016-09-02] MEDS: TOLNAFTATE TOP SCH ×2 (08:48→20:41)
[2016-09-02] MEDS: FOLIC ACID 1 MG TAB PO SCH (08:49)
[2016-09-02] MEDS: CETIRIZINE (ZyrTEC) 10 MG TAB PO SCH (08:49)
[2016-09-02] MEDS: busPIRone 10 MG TAB PO SCH ×3 (08:49→20:40)
[2016-09-02] MEDS ORDERED: PANTOPRAZOLE 40MG INJ (PROTONIX) (C9113) IV SCH (09:00)
[2016-09-02] MEDS ORDERED: INCRUSE ELLIPTA 62.5MCG (PATIENT'S OWN MED) INH SCH (09:00)
[2016-09-02] MEDS ORDERED: GASTROGRAFIN SOLUTION 30ML PO ONE (11:00)
[2016-09-02] MEDS ORDERED: BISACODYL 10 MG SUPP PR ONE (11:00)
[2016-09-02] MEDS ORDERED: GASTROGRAFIN SOLUTION 30ML (Q9963) PO ONE (11:30)
[2016-09-02 12:46] LABS: ANION GAP 7 MEQ/L (8-16); BLOOD UREA NITROGEN 2 MG/DL (7-18); CALCIUM LEVEL 9.4 MG/DL (8.5-10.1); CARBON DIOXIDE LEVEL 29 MEQ/L (21-32); CHLORIDE LEVEL 98 MEQ/L (98-107); CREATININE FOR GFR 0.85 MG/DL (0.55-1.02); GLOMERULAR FILTRATION RATE > 60.0 (>51); GLUCOSE, FASTING 114 MG/DL (70-105); POTASSIUM SERUM 4.4 MEQ/L (3.5-5.1); SODIUM LEVEL 134 MEQ/L (136-145)
--- NOTE | 2016-09-02 15:42 | IPNPDOC ---
Text Note Date of Service The patient was seen on 09/02/16. NOTE Subjective: Pt states abd pain is improving. No N/V. No diarrhea. Objective: Vitals: (see below) General: No acute distress, laying comfortably in bed. HEENT: Moist mucous membranes. Neck: No JVD or lymphadenopathy Cardiac: RRR, No murmurs Pulm: Clear to auscultation b/l. No wheezing, rhonchi Abd: Mild tenderness to palpation periumbilical. No rebound/guarding/rigidity. ND + BS Ext: No edema or cyanosis Labs (see below) Images: CT Abd/pelvis 09/01/16 IMPRESSION: Mild changes of enteritis. Small sliding hiatal hernia. Fatty liver infiltration. Assessment/Plan 1. Abd pain 2/2 enteritis. On Cipro/flagyl. IVF. Abd pain improving. No diarrhea. No N/V. 2. Hyponatremia -2/2 hypovolemia- improved. On IVF. 3. H/o seizures - on keppra 4. Tinea Pedis on tolnaftate 5. H/o asthma on nebs/sigular 6. Fatty liver/HLD - on statin 7. Urinary incontinence - on Ditropan 8. Allergic rhinitis - on Zyrtec DVT prophy: Lovenox VS,Fishbone, I+O VS, Fishbone, I+O Laboratory Tests 09/01/16 22:57 Red Blood Count 4.47, Mean Corpuscular Volume 84.0, Mean Corpuscular Hemoglobin 29.3, Mean Corpuscular Hemoglobin Concent 34.9, Red Cell Distribution Width 12.9 , Neutrophils (%) (Auto) 66.8 H, Lymphocytes (%) (Auto) 20.6 L, Monocytes (%) ( Auto) 10.5 H, Eosinophils (%) (Auto) 0.4, Basophils (%) (Auto) 0.2, Neutrophils # (Auto) 5.2, Lymphocytes # (Auto) 1.7, Monocytes # (Auto) 0.8, Eosinophils # ( Auto) 0.0, Basophils # (Auto) 0.0 09/02/16 04:48 Red Blood Count 4.35, Mean Corpuscular Volume 84.6, Mean Corpuscular Hemoglobin 29.2, Mean Corpuscular Hemoglobin Concent 34.6, Red Cell Distribution Width 13.1 , Neutrophils (%) (Auto) 48.1, Lymphocytes (%) (Auto) 38.6, Monocytes (%) (Auto ) 10.8 H, Eosinophils (%) (Auto) 0.0, Basophils (%) (Auto) 0.1, Neutrophils # ( Auto) 2.5, Lymphocytes # (Auto) 2.1, Monocytes # (Auto) 0.6, Eosinophils # (Auto ) 0.0, Basophils # (Auto) 0.0, Calcium Level 9.1, Total Creatine Kinase 103 09/02/16 12:11 Calcium Level 9.4, Total Creatine Kinase 82 Vital Signs Date Time Temp Pulse Resp B/P (MAP) Pulse Ox O2 Delivery O2 Flow Rate FiO2 09/02/16 07:51 96.7 76 20 118/67 (84) 97 Room Air I&O- Last 24 Hours up to 6 AM 09/02/16 06:00 Intake Total 650 ml Output Total 2700 ml Balance -2050 ml KIP SALGADO MD September 02, 2016 15:42
[2016-09-02 16:00] VITALS: BP 105/59
[2016-09-02 16:30] VITALS: BP 123/75
[2016-09-02 18:24] LABS: ANION GAP 7 MEQ/L (8-16); BLOOD UREA NITROGEN 3 MG/DL (7-18); CALCIUM LEVEL 8.6 MG/DL (8.5-10.1); CARBON DIOXIDE LEVEL 29 MEQ/L (21-32); CHLORIDE LEVEL 97 MEQ/L (98-107); CREATININE FOR GFR 0.86 MG/DL (0.55-1.02); GLOMERULAR FILTRATION RATE > 60.0 (>51); GLUCOSE, FASTING 129 MG/DL (70-105); SODIUM LEVEL 133 MEQ/L (136-145)
[2016-09-02] MEDS ORDERED: diphenhydrAMINE 25 MG CAP PO PRN (18:30)
[2016-09-02] MEDS: ATORVASTATIN 20 MG TAB PO SCH (20:40)
[2016-09-02] MEDS: oxyBUTYnin *DITROPAN XL* 5 MG TABCR PO SCH (20:40)
[2016-09-02] MEDS: MONTELUKAST 10 MG TAB PO SCH (20:40)
[2016-09-02 22:00] VITALS: BP 123/61
[2016-09-03 00:19] LABS: ANION GAP 2 MEQ/L (8-16); BLOOD UREA NITROGEN 4 MG/DL (7-18); CALCIUM LEVEL 8.9 MG/DL (8.5-10.1); CARBON DIOXIDE LEVEL 31 MEQ/L (21-32); CHLORIDE LEVEL 102 MEQ/L (98-107); CREATININE FOR GFR 0.86 MG/DL (0.55-1.02); GLOMERULAR FILTRATION RATE > 60.0 (>51); GLUCOSE, FASTING 98 MG/DL (70-105); POTASSIUM SERUM 4.8 MEQ/L (3.5-5.1); SODIUM LEVEL 135 MEQ/L (136-145)
[2016-09-03] MEDS: CIPROFLOXACIN 400 MG in APPROPRIATE DILUENT 1 EA IV SCH (03:05)
[2016-09-03] MEDS: metroNIDAZOLE 500 MG in APPROPRIATE DILUENT 1 EA IV SCH ×2 (05:46→13:00)
[2016-09-03 06:00] VITALS: BP 101/62
[2016-09-03 06:19] LABS: BASO % 0.2 % (0.0-1.0); LARGE UNSTAINED CELL # 0.1 K/mm3 (0.0-0.4); LARGE UNSTAINED CELL % 2.2 % (0.0-4.0); LYMPH # 2.3 K/mm3 (1.5-4.5); LYMPH % 38.7 % (24.0-44.0); MEAN CORPUSCULAR HEMOGLOBIN 29.6 pg (27.0-33.0); MEAN CORPUSCULAR HGB CONC 33.7 g/dl (32.0-36.5); MEAN CORPUSCULAR VOLUME 87.8 fl (80.0-96.0); MONO # 0.5 K/mm3 (0.0-0.8); MONO % 8.9 % (0.0-5.0); NEUTROPHILS # 2.8 K/mm3 (1.8-7.7); PLATELET COUNT, AUTOMATED 324 k/mm3 (150-450); RED CELL DISTRIBUTION WIDTH 13.2 % (11.5-14.5); WHITE BLOOD COUNT 5.6 K/mm3 (4.0-10.0)
[2016-09-03 06:34] LABS: ANION GAP 4 MEQ/L (8-16); BLOOD UREA NITROGEN 3 MG/DL (7-18); CALCIUM LEVEL 8.4 MG/DL (8.5-10.1); CARBON DIOXIDE LEVEL 32 MEQ/L (21-32); CHLORIDE LEVEL 103 MEQ/L (98-107); CREATININE FOR GFR 0.91 MG/DL (0.55-1.02); GLOMERULAR FILTRATION RATE > 60.0 (>51); GLUCOSE, FASTING 88 MG/DL (70-105); POTASSIUM SERUM 4.1 MEQ/L (3.5-5.1); SODIUM LEVEL 139 MEQ/L (136-145)
[2016-09-03] MEDS: CETIRIZINE (ZyrTEC) 10 MG TAB PO SCH (08:17)
[2016-09-03] MEDS: levETIRAcetam 250MG TABLET (KEPPRA) PO SCH ×3 (08:17→21:10)
[2016-09-03] MEDS: FOLIC ACID 1 MG TAB PO SCH (08:18)
[2016-09-03] MEDS: CYANOCOBALAMIN 500 MCG TAB PO SCH (08:18)
[2016-09-03] MEDS: busPIRone 10 MG TAB PO SCH ×3 (08:18→21:10)
[2016-09-03] MEDS: OMEPRAZOLE 20 MG CAP PO SCH (08:18)
[2016-09-03] MEDS: ENOXAPARIN 40 MG/0.4 ML SYRINGE (J1650) SC SCH (08:18)
[2016-09-03] MEDS: TOLNAFTATE TOP SCH ×3 (08:19→21:15)
[2016-09-03 12:44] LABS: ANION GAP 7 MEQ/L (8-16); BLOOD UREA NITROGEN 4 MG/DL (7-18); CALCIUM LEVEL 8.7 MG/DL (8.5-10.1); CARBON DIOXIDE LEVEL 27 MEQ/L (21-32); CHLORIDE LEVEL 100 MEQ/L (98-107); CREATININE FOR GFR 0.86 MG/DL (0.55-1.02); GLOMERULAR FILTRATION RATE > 60.0 (>51); GLUCOSE, FASTING 96 MG/DL (70-105); POTASSIUM SERUM 4.2 MEQ/L (3.5-5.1); SODIUM LEVEL 134 MEQ/L (136-145)
[2016-09-03 14:00] VITALS: BP 159/95
--- NOTE | 2016-09-03 14:47 | IPN ---
DATE: 09/03/2016 SUBJECTIVE: The patient is seen and examined in the room today. The patient had one bowel movement in the last 24 hours. The patient stated her abdominal pain has been getting better with medical management. No overnight events are reported. OBJECTIVE: VITAL SIGNS: Temperature 97.7, pulse is 55, respiratory rate 18, blood pressure is 101/62, pulse oximetry is 96% on room air. GENERAL: No sign of acute distress, alert and oriented times three. HEENT: Normocephalic, atraumatic. Extraocular motor grossly intact. CARDIOVASCULAR: Positive S1, S2, regular rate. LUNGS: Clear to auscultation bilaterally. No wheezes, rales, or rhonchi. ABDOMEN: There is still some tenderness to palpation near the umbilical region but no rebound, no guarding, bowel sounds present. EXTREMITIES: No edema. No sign of cyanosis. LABORATORY DATA: WBC 5.6, hemoglobin 12.3, hematocrit 36.6, platelet count is 324. Sodium 134, potassium 4.2, chloride 100, carbon dioxide 27, BUN 4, creatinine 0.86, GFR greater than 60, fasting glucose 96, calcium is 8.7. ASSESSMENT AND PLAN: 1. Abdominal pain secondary to enteritis. The patient has been on ciprofloxacin and Flagyl with IV to by mouth formulations. We will advance the diet as tolerated. 2. History of seizure, on Keppra. 3. Tinea pedis, on antifungal medication; Tolnaftate. 4. History of asthma, on breathing treatments. 5. Hyperlipidemia, on statin. 6. History of allergic rhinitis, on Zyrtec. 7. Significant psychiatric history. The patient has anxiety and depression. The patient has multiple inpatient mental health unit ([facility]) hospitalizations in the past. We will continue the patient's home antidepressant. Most recent [facility] admission was from 03/23/2016 through 04/10/2016. 8. Deep vein thrombosis (DVT) prophylaxis. The patient is on Lovenox.
[2016-09-03] MEDS: metroNIDAZOLE (FLAGYL) 500 MG TAB PO SCH ×2 (14:50→21:10)
[2016-09-03] MEDS: CIPROFLOXACIN 500 MG TAB PO SCH (17:39)
[2016-09-03 18:47] LABS: ANION GAP 4 MEQ/L (8-16); BLOOD UREA NITROGEN 5 MG/DL (7-18); CALCIUM LEVEL 8.7 MG/DL (8.5-10.1); CARBON DIOXIDE LEVEL 28 MEQ/L (21-32); CHLORIDE LEVEL 102 MEQ/L (98-107); CREATININE FOR GFR 0.88 MG/DL (0.55-1.02); GLOMERULAR FILTRATION RATE > 60.0 (>51); GLUCOSE, FASTING 110 MG/DL (70-105); POTASSIUM SERUM 3.9 MEQ/L (3.5-5.1); SODIUM LEVEL 134 MEQ/L (136-145)
[2016-09-03] MEDS: ATORVASTATIN 20 MG TAB PO SCH (21:10)
[2016-09-03] MEDS: MONTELUKAST 10 MG TAB PO SCH (21:10)
[2016-09-03] MEDS: oxyBUTYnin *DITROPAN XL* 5 MG TABCR PO SCH (21:10)
[2016-09-03 22:00] VITALS: BP 117/56
[2016-09-04 00:25] LABS: ANION GAP 4 MEQ/L (8-16); BLOOD UREA NITROGEN 5 MG/DL (7-18); CARBON DIOXIDE LEVEL 30 MEQ/L (21-32); CHLORIDE LEVEL 97 MEQ/L (98-107); CREATININE FOR GFR 0.89 MG/DL (0.55-1.02); GLOMERULAR FILTRATION RATE > 60.0 (>51); GLUCOSE, FASTING 101 MG/DL (70-105); POTASSIUM SERUM 4.3 MEQ/L (3.5-5.1); SODIUM LEVEL 131 MEQ/L (136-145)
[2016-09-04] MEDS: metroNIDAZOLE (FLAGYL) 500 MG TAB PO SCH (05:33)
[2016-09-04] MEDS: CIPROFLOXACIN 500 MG TAB PO SCH (05:33)
[2016-09-04 06:00] VITALS: BP 133/73
[2016-09-04 06:17] LABS: BASO % 0.1 % (0.0-1.0); EOS % 0.1 % (0.0-3.0); LARGE UNSTAINED CELL # 0.1 K/mm3 (0.0-0.4); LARGE UNSTAINED CELL % 2.5 % (0.0-4.0); LYMPH # 2.1 K/mm3 (1.5-4.5); LYMPH % 46.7 % (24.0-44.0); MEAN CORPUSCULAR HEMOGLOBIN 29.3 pg (27.0-33.0); MEAN CORPUSCULAR HGB CONC 33.5 g/dl (32.0-36.5); MEAN CORPUSCULAR VOLUME 87.3 fl (80.0-96.0); MONO # 0.4 K/mm3 (0.0-0.8); MONO % 8.6 % (0.0-5.0); NEUTROPHILS # 1.9 K/mm3 (1.8-7.7); NEUTROPHILS % 42.1 % (36.0-66.0); PLATELET COUNT, AUTOMATED 341 k/mm3 (150-450); RED CELL DISTRIBUTION WIDTH 12.8 % (11.5-14.5); WHITE BLOOD COUNT 4.6 K/mm3 (4.0-10.0)
[2016-09-04 06:29] LABS: ANION GAP 8 MEQ/L (8-16); BLOOD UREA NITROGEN 6 MG/DL (7-18); CALCIUM LEVEL 8.7 MG/DL (8.5-10.1); CARBON DIOXIDE LEVEL 30 MEQ/L (21-32); CHLORIDE LEVEL 99 MEQ/L (98-107); CREATININE FOR GFR 0.93 MG/DL (0.55-1.02); GLOMERULAR FILTRATION RATE > 60.0 (>51); GLUCOSE, FASTING 97 MG/DL (70-105); POTASSIUM SERUM 4.1 MEQ/L (3.5-5.1); SODIUM LEVEL 137 MEQ/L (136-145)
[2016-09-04] MEDS ORDERED: FLAG500T PO (08:28)
[2016-09-04] MEDS ORDERED: CIPR500T89 PO (08:28)
[2016-09-04] MEDS: ENOXAPARIN 40 MG/0.4 ML SYRINGE (J1650) SC SCH (09:04)
[2016-09-04] MEDS: levETIRAcetam 250MG TABLET (KEPPRA) PO SCH (09:04)
[2016-09-04] MEDS: CYANOCOBALAMIN 500 MCG TAB PO SCH (09:04)
[2016-09-04] MEDS: FOLIC ACID 1 MG TAB PO SCH (09:04)
[2016-09-04] MEDS: OMEPRAZOLE 20 MG CAP PO SCH (09:04)
[2016-09-04] MEDS: busPIRone 10 MG TAB PO SCH (09:04)
[2016-09-04] MEDS: CETIRIZINE (ZyrTEC) 10 MG TAB PO SCH (09:04)
[2016-09-04] MEDS: TOLNAFTATE TOP SCH (09:05)
--- NOTE | 2016-09-04 15:20 | DSES ---
DATE OF ADMISSION: 09/02/2016 DATE OF DISCHARGE: 09/04/2016 PRIMARY CARE PROVIDER: Dr. David Lopez CONSULTANTS: None. PROCEDURES: None. COMPLICATIONS: None. ADMISSION/DISCHARGE DIAGNOSES: 1. Abdominal pain secondary to enteritis. 2. History of seizure, on Keppra. 3. Tinea pedis. 4. History of asthma. 5. Hyperlipidemia. 6. History of allergic rhinitis. 7. History of anemia. 8. Gastroesophageal reflux disease. 9. Anxiety/depression. 10. Vitamin D deficiency. HOSPITAL COURSE: The patient is a 55-year-old female who presented to [facility] on 09/01/2016 for acute abdominal pain. Diagnostic tests were performed. The patient was found to have enteritis and the patient was started empiric antibiotics, Cipro and Flagyl. The patient continued on the proton pump inhibitor and Carafate. The patient's symptoms show continuous improvement with medical management. The patient also had one good bowel movement. With resolution of constipation and with treatment of enteritis, the patient's pain has almost resolved. On 09/04/2016, the patient is determined medically stable for discharge with the recommendation to continue with antibiotic regimen. The patient is recommended to followup with a primary care provider. OBJECTIVE: VITAL SIGNS: Temperature is 97.8, pulse is 65, respiratory rate 16, blood pressure is 133/73, pulse oximetry is 97% on room air. LABORATORY DATA: WBC is 4.6, hemoglobin 12.1, hematocrit 36.1, platelet count is 341. Sodium is 137, potassium is 4.1, chloride is 99, carbon dioxide is 30, BUN 6, creatinine 0.93, GFR greater than 60, fasting glucose 97, calcium is 8.7. Microbiology: Urine culture appears contaminated. CT abdomen and pelvis with IV and oral contrast shows enteritis. Small sliding hiatal hernia. Fatty liver infiltrate. DISCHARGE MEDICATIONS: - ciprofloxacin 500 mg by mouth twice a day for four more days - Flagyl 500 mg by mouth every eight hours for four more days - albuterol one puff inhalation every four hours as needed for shortness of breath - atorvastatin 20 mg by mouth at bedtime - buspirone 10 mg by mouth three times a day - cetirizine 10 mg by mouth every morning - vitamin B12 1000 mcg by mouth every morning - folic acid 1 mg by mouth every morning - Incruse Ellipta 62.5 mcg daily - Keppra 1000 mg by mouth twice a day - Keppra 250 mg by mouth at bedtime - montelukast 10 mg by mouth at bedtime - omeprazole 20 mg by mouth every morning - oxybutynin 10 mg by mouth at bedtime - vitamin D 50,000 units by mouth every two weeks DISCHARGE INSTRUCTIONS: Discharge home. Activity as tolerated. Diet as tolerated. The patient will followup with a primary care provider within one week. The patient should continue taking the antibiotics for four more days to finish the course for enteritis. DISCHARGE CONDITION: Stable. DISCHARGE TIME: Greater than 30 minutes.
== END 2016-09-04 11:35 | disposition home or self-care (01) | DRG 249 ==
LOC: EDBD 21:50 → M ED 22:29 → M ED INP 22:30 → M PCU 09-02 04:34 → OBSVTOIN 09-02 11:48 → M MSPAV 09-02 16:16
PROVIDERS: ADMIT General Practice; ATTEND Internal Medicine
DX: K52.9 Noninfective gastroenteritis and colitis, unspecified (principal); K76.0 Fatty (change of) liver, not elsewhere classified; E87.1 Hypo-osmolality and hyponatremia; E55.9 Vitamin D deficiency, unspecified; D53.1 Other megaloblastic anemias, not elsewhere classified; J45.909 Unspecified asthma, uncomplicated; F41.9 Anxiety disorder, unspecified; F32.9 Major depressive disorder, single episode, unspecified; K21.9 Gastro-esophageal reflux disease without esophagitis; E78.5 Hyperlipidemia, unspecified; G40.909 Epilepsy, unspecified, not intractable, without status epilepticus; B35.3 Tinea pedis; Z79.899 Other long term (current) drug therapy; I10 Essential (primary) hypertension; K57.30 Diverticulosis of large intestine without perforation or abscess without bleeding; G47.00 Insomnia, unspecified; Z87.891 Personal history of nicotine dependence; K44.9 Diaphragmatic hernia without obstruction or gangrene; K59.00 Constipation, unspecified; N39.3 Stress incontinence (female) (male)

== ENCOUNTER 2016-09-05 08:10 | Inpatient (IN) | payer OTHER ==
[~2016-09-05] VITALS: Ht 172.7 cm; Wt 90.9 kg
[~2016-09-05 08:10] MED LIST changes: +CIPR500T89 PO; +FLAG500T PO; +INCR1INH IN; +OXYB10TA PO
--- NOTE | 2016-09-05 09:31 | REP ---
Clinical: Altered mental status and confusion. Comparison: None . Findings: Age-related atrophy and microvascular ischemic changes are appreciated. The ventricles and sulci are symmetric. Eaton-white differentiation is maintained. There is no evidence for acute intracranial hemorrhage, mass/mass effect, pathology or infarction. No extra-axial fluid collection. Calvarium is intact. Paranasal sinuses and mastoid air cells are clear. Impression: Age related atrophy and microvascular ischemic changes. No acute intracranial hemorrhage, infarction, or mass/mass effect. Signed by Darien Rowland MD 09/05/2016 09:23 A
--- NOTE | 2016-09-05 09:33 | REP ---
Clinical: Altered mental status. Comparison: 05/28/2016. Technique: PA and lateral. Findings: The mediastinum and cardiac silhouette are normal. The lung sow are clear and without acute consolidation, effusion, or pneumothorax. The skeletal structures are intact and normal. Impression: 1. No acute cardiopulmonary process. Signed by Darien Rowland MD 09/05/2016 09:25 A
[2016-09-05 09:34] LABS: BASO % 0.2 % (0.0-1.0); EOS % 0.2 % (0.0-3.0); LARGE UNSTAINED CELL # 0.1 K/mm3 (0.0-0.4); LARGE UNSTAINED CELL % 2.7 % (0.0-4.0); LYMPH # 1.1 K/mm3 (1.5-4.5); LYMPH % 28.6 % (24.0-44.0); MEAN CORPUSCULAR HEMOGLOBIN 30.1 pg (27.0-33.0); MEAN CORPUSCULAR HGB CONC 34.8 g/dl (32.0-36.5); MEAN CORPUSCULAR VOLUME 86.4 fl (80.0-96.0); MONO # 0.4 K/mm3 (0.0-0.8); MONO % 8.7 % (0.0-5.0); NEUTROPHILS # 2.4 K/mm3 (1.8-7.7); NEUTROPHILS % 59.6 % (36.0-66.0); PLATELET COUNT, AUTOMATED 311 k/mm3 (150-450); RED CELL DISTRIBUTION WIDTH 12.8 % (11.5-14.5)
[2016-09-05 09:41] LABS: ANION GAP 8 MEQ/L (8-16); BLOOD UREA NITROGEN 3 MG/DL (7-18); CALCIUM LEVEL 8.7 MG/DL (8.5-10.1); CARBON DIOXIDE LEVEL 26 MEQ/L (21-32); CHLORIDE LEVEL 98 MEQ/L (98-107); CREATININE FOR GFR 0.78 MG/DL (0.55-1.02); GLOMERULAR FILTRATION RATE > 60.0 (>51); GLUCOSE, FASTING 109 MG/DL (70-105); POTASSIUM SERUM 3.7 MEQ/L (3.5-5.1); SODIUM LEVEL 132 MEQ/L (136-145)
[2016-09-05] MEDS: metroNIDAZOLE (FLAGYL) 500 MG TAB PO SCH ×3 (09:45→20:44)
[2016-09-05] MEDS: CIPROFLOXACIN 500 MG TAB PO SCH (09:45)
[2016-09-05 09:54] LABS: METHADONE URINE NEGATIVE (NEGATIVE)
[2016-09-05 10:12] VITALS: O2SAT 97
[2016-09-05 12:13] LABS: ALBUMIN 3.9 GM/DL (3.2-5.2); ALBUMIN/GLOBULIN RATIO 1.18 (1.00-1.93); ALKALINE PHOSPHATASE 132 U/L (45-117); ALT/SGPT 28 U/L (12-78); AST/SGOT 26 U/L (15-37); BILIRUBIN,DIRECT 0.1 MG/DL (0.0-0.2); BILIRUBIN,TOTAL 0.3 MG/DL (0.2-1.0); TOTAL PROTEIN 7.2 GM/DL (6.4-8.2)
[2016-09-05] MEDS ORDERED: levETIRAcetam 250MG TABLET (KEPPRA) PO ONE (12:15)
[2016-09-05] MEDS ORDERED: LORazepam 1 MG TAB PO PRN (12:45)
[2016-09-05] MEDS ORDERED: MOM 30ML SUSPENSION UDC PO PRN (12:45)
[2016-09-05] MEDS ORDERED: MAALOX 30 ML SUSP *UDC PO PRN (12:45)
[2016-09-05 13:41] VITALS: BP 122/70
[2016-09-05] MEDS ORDERED: busPIRone 10 MG TAB PO ONE (16:00)
[2016-09-05] MEDS ORDERED: metroNIDAZOLE (FLAGYL) 500 MG TAB PO ONE (16:00)
[2016-09-05] MEDS: ACETAMINOPHEN TAB 650MG DOSE (2X325MG) PO PRN (16:23)
[2016-09-05] MEDS: SERTRALINE HCL 50 MG TAB PO SCH (16:24)
[2016-09-05] MEDS: levETIRAcetam 250MG TABLET (KEPPRA) PO SCH ×2 (20:37)
[2016-09-05] MEDS: busPIRone 10 MG TAB PO SCH (20:37)
[2016-09-05] MEDS: MONTELUKAST 10 MG TAB PO SCH (20:37)
[2016-09-05] MEDS: oxyBUTYnin *DITROPAN XL* 5 MG TABCR PO SCH (20:37)
[2016-09-05] MEDS: ATORVASTATIN 20 MG TAB PO SCH (20:37)
[2016-09-06] MEDS: metroNIDAZOLE (FLAGYL) 500 MG TAB PO SCH ×3 (06:12→21:24)
[2016-09-06] MEDS: CIPROFLOXACIN 500 MG TAB PO SCH (06:12)
[2016-09-06 06:56] VITALS: BP 130/76
[2016-09-06] MEDS: CYANOCOBALAMIN 500 MCG TAB PO SCH (08:25)
[2016-09-06] MEDS: OMEPRAZOLE 20 MG CAP PO SCH (08:25)
[2016-09-06] MEDS: CETIRIZINE (ZyrTEC) 10 MG TAB PO SCH (08:25)
[2016-09-06] MEDS: SERTRALINE HCL 50 MG TAB PO SCH (08:25)
[2016-09-06] MEDS: FOLIC ACID 1 MG TAB PO SCH (08:25)
[2016-09-06] MEDS: busPIRone 10 MG TAB PO SCH ×3 (08:25→21:24)
[2016-09-06] MEDS: levETIRAcetam 250MG TABLET (KEPPRA) PO SCH ×3 (08:26→21:26)
[2016-09-06] MEDS: ACETAMINOPHEN TAB 650MG DOSE (2X325MG) PO PRN ×2 (08:30→16:35)
[2016-09-06] MEDS ORDERED: MIRALAX *UNIT DOSE* 17GM PACKET PO SCH (09:00)
[2016-09-06] MEDS ORDERED: SENOKOT S TAB PO SCH (09:00)
--- NOTE | 2016-09-06 12:35 | MHHPE ---
DATE OF ADMISSION: 09/05/2016 LEGAL STATUS ON ADMISSION: 9.39 legal status. CHIEF COMPLAINT: "I have been feeling very depressed and I have suicidal thoughts." HISTORY OF PRESENT ILLNESS: 55-year-old female with a history of depression, admitted to our unit on a 9.39 legal status. According to the chart, the patient came to the emergency room to be evaluated for depression, suicidal thoughts, making statements such as "I don't to want to live anymore." The patient reports that her doctor took her off her psychiatric medications. However, it appears that the last refill was filled on 07/19/2016. She says that she has not taken it for last 20 days and also has decreased the amount of Keppra at bedtime because "it made me sleep all day," and "I was feeling sick and I could not take the depression medicine." The patient was discharged from our unit on 03/29 and was placed in [facility] ([facility]) in [place], but states that she did not like the place so she is now living in an apartment on her own. During the interview today, the patient reports feeling depressed, sad, lonely with very low energy and low appetite. She describes her sleep as restless. Feels anxious. The patient reports low self esteem. The patient reports that she has some problems with memory and has intermittent suicidal thoughts. During the interview, there is no evidence of psychotic symptoms. No auditory or visual hallucinations or delusions. PAST MEDICAL HISTORY: The patient has been diagnosed with asthma and grand mal seizures and she describes symptoms compatible with enteritis. PAST PSYCHIATRIC HISTORY: As above, the patient has been diagnosed with depression and has several admissions to our unit. The patient was discharged on Lexapro, BuSpar and trazodone as needed and apparently the medications were effective until she stopped taking it because of her medical symptoms. FAMILY HISTORY: The patient has a brother that suffers from schizophrenia. SOCIAL HISTORY: As above, the patient lives alone with her cat in an apartment. She is single with very poor social support. SUBSTANCE ABUSE HISTORY: The patient denies any current problems with drugs or alcohol. The patient has a remote history of alcohol problems. REVIEW OF SYSTEMS: CONSTITUTIONAL: No weight loss, fevers, chills, weakness, or fatigue. HEENT: No visual loss, blurry vision, double vision, or yellow sclerae. No hearing loss, sneezing, congestion, runny nose or sore throat. SKIN: No rash or itching. CARDIOVASCULAR: No chest pain, chest pressure, chest discomfort, palpitations, or edema. RESPIRATORY: No shortness of breath, cough or sputum. GASTROINTESTINAL: No anorexia, nausea, vomiting, or diarrhea. No abdominal pain or blood. GENITOURINARY: No burning or pain on urination. NEUROLOGIC: No headache, dizziness, syncope, paralysis, ataxia, numbness or tingling. MUSCULOSKELETAL: No muscle, back pain, joint pain or stiffness. HEMATOLOGIC: No anemia, bleeding or bruising. LYMPHATICS: No history of splenectomy. ENDOCRINOLOGIC: No reports of sweating, cold or heat intolerance. No polyuria or polydipsia. ALLERGIES: No history of asthma, hives, eczema or rhinitis. PHYSICAL EXAMINATION : As per physician's quality assurance assistant. LABORATORIES ON ADMISSION: Complete blood count (CBC) is unremarkable. Comprehensive metabolic panel (CMP) is within normal limits except sodium of 132, alkaline phosphatase of 132. Urine drug screen is negative. TSH within normal limits. Blood alcohol level is negative. MENTAL STATUS EXAMINATION: The patient is dressed in [facility]. The patient is partially cooperative. The patient has poor memory and is unable to answer all the questions. Speech is soft and monotone. Has poor eye contact. Mood is depressed. Affect is restricted and congruent with mood. The patient is oriented to time, place, person and situation. Maintains attention and concentration correctly. Instant recall, recent and remote memory are impaired. Thought processes are coherent, logical and goal directed. The patient does not have auditory or visual hallucinations. The patient does not have paranoid, persecutory, somatic, grandiose or lutheran delusions. The patient is denying homicidal thoughts but reports intermittent suicidal ideation. Judgment and insight are poor. DIAGNOSES: AXIS I: Unspecified depressive disorder, rule out major depressive disorder. AXIS II: Deferred. AXIS III: Epilepsy, asthma. INITIAL TREATMENT PLAN: Patient was admitted on a 9.39 legal status. Complete history was obtained. With her permission, family will be contacted, and database will be expanded. Her medication regimen will be reviewed and changed accordingly. She will be provided with protected environment. She will be treated with individual, group, and milieu therapies. She will also receive supportive psychoeducation. Discharge planning will commence immediately. Length of stay will be between 5 and 7 days. Outpatient followup will be strongly recommended. The treatment plan will focus initially on depression and suicidal thoughts. CARLEEN
[2016-09-06 13:36] LABS: MEAN CORPUSCULAR HEMOGLOBIN 29.5 pg (27.0-33.0); MEAN CORPUSCULAR HGB CONC 33.3 g/dl (32.0-36.5); MEAN CORPUSCULAR VOLUME 88.5 fl (80.0-96.0); RED CELL DISTRIBUTION WIDTH 12.7 % (11.5-14.5)
--- NOTE | 2016-09-06 13:58 | CR ---
DATE OF CONSULTATION: 09/06/2016 REQUESTING PHYSICIAN: Dr. Koenig REASON FOR CONSULTATION: Hyponatremia. HISTORY OF PRESENT ILLNESS: This is a 55-year-old female patient with underlying medical history of diverticular disease on colonoscopy done in August 2016 and also normal esophagogastroduodenoscopy (EGD) with sliding type of hiatal hernia on CT of the abdomen and pelvis, hypertension, depression, anxiety, seizure disorder, asthma, dyslipidemia, vitamin D deficiency, appendectomy, partial hysterectomy, foot surgery, who was initially discharged from the hospitalist service on 09/04/2016 after treated for enteritis and hyponatremia. The patient has chronic gastrointestinal complaints. Has had full workup in the recent past and also has baseline hyponatremia. Currently is admitted to inpatient mental health for depression and suicidal ideation. As per consultation of cause for hyponatremia, as per nursing staff on the floor, the patient this morning reported some nausea and no vomiting with symptoms of smelling things, that she thinks she might be going to have a seizure. As per patient, last seizure was in March 2016. The patient reported the smell is still there. Also reported lightheadedness, as per nursing staff. When addressed as open ended question, the patient initially does not know what happened this morning when the nursing staff suggested episodes of smelling things and also lightheadedness. The patient admits to everything. Furthermore, the patient described episode of smelling weird smells is still present and upon review of systems, the patient replied "yes" to almost all questions, which also included lightheadedness, headache, vision change, hearing change, nausea, chest pain, pressure, back pain, leg pain, urinary retention, abdominal pain, constipation, and the patient reported chills as well, even though no documented fever. The patient described the pain as 7 out of 10 with no exacerbating or alleviating factors. No syncopal episode was witnessed by the nurse. ALLERGIES: No known drug allergies. PAST MEDICAL HISTORY: 1. Seizure disorder. 2. Asthma. 3. Gastroesophageal reflux disease (GERD). 4. Megaloblastic anemia. 5. Dyslipidemia. 6. Depression. 7. Anxiety. 8. Vitamin D deficiency. 9. Insomnia. 10. Allergic rhinitis. 11. Chronic gastrointestinal symptoms. PAST SURGICAL HISTORY: 1. 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 2. Hysterectomy. 3. Colonoscopy times four. 4. Breast biopsy on the left and right, benign. 5. Appendectomy. 6. Esophagogastroduodenoscopy (EGD). 7. Colonoscopy recently. 8. Diagnosed with hiatal hernia, on chronic Prilosec. FAMILY HISTORY: One brother . Father due to diabetes, hypertension, coronary arterial disease. Mother due to colon cancer. Had hypertension, coronary artery disease. SOCIAL HISTORY: Smokes one pack per day for 36 years. No alcohol or illicit drug use. REVIEW OF SYSTEMS: Limited secondary to the patient's underlying psychiatric condition. The patient basically states "yes" to all review of system, which I really doubt is accurate. HOME MEDICATIONS: - ProAir every four hours as needed - Lipitor 20 mg by mouth at night - buspirone 10 mg by mouth three times a day - Zyrtec 10 mg by mouth at night - Cipro 500 mg by mouth twice a day - vitamin D 1000 mcg by mouth in the morning - folic acid 1 mg by mouth in the morning - Ellipta inhalation daily - Keppra 1000 mg by mouth twice a day and 250 mg by mouth at night - Flagyl 500 mg by mouth every 8 hours - montelukast 10 mg by mouth at night - omeprazole 20 mg by mouth in the morning - oxybutynin 10 mg by mouth at night - vitamin D 50,000 units by mouth every Friday PHYSICAL EXAMINATION: VITAL SIGNS: Temperature 98.6, pulse 76, respirations 18, blood pressure 130/76, pulse oximetry 98% on room air. GENERAL: The patient is alert and oriented times three. No acute distress. PULMONARY: Bilaterally clear to auscultation. CARDIAC: Regular rate and rhythm. Normal S1, S2. ABDOMEN: Soft, nontender. Positive bowel sounds. EXTREMITIES: No edema in bilateral lower extremities. NEUROLOGIC: Is able to move all four extremities. Cranial nerves II through XII grossly intact. No focal deficits. LABORATORY DATA: WBC 4, hemoglobin and hematocrit 12.2/35.2, platelets 311. Chemistry: Sodium 132, potassium 3.7, chloride 98, bicarbonate 26, BUN 3, creatinine 0.78. 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 Medicine consulted for hyponatremia. 1. Abdominal pain. The patient is undergoing treatment for enteritis, but the patient has had full workup for abdominal pain and due to the patient's underlying psychiatric history, the patient's history is limited at best. The patient will admit to most systems of review of systems when questioned, will admit to pain at all the questions. Therefore, history should be taken via open ended questions to be more accurate. Last bowel movement, as per patient, was two days ago. Bowel regimen is recommended. The patient does have a history of constipation and needs to be monitored regularly to make sure that the patient is having bowel movements. 2. Hyponatremia. The patient's baseline sodium has been ranging from 139 to 137 and currently is at 132. We will monitor the patient closely to see how much fluid she takes. Monitor sodium. 3. Depression and anxiety. Care is as per psychiatry. 4. Seizure disorder. Continue current medications. We will monitor closely. 5. History of asthma. Continue current medications. 6. Dyslipidemia. Continue current medications. 7. Allergic rhinitis. Continue current medication. 8. Urinary incontinence. Continue current medications. DISPOSITION: As per psychiatry. Please reconsult as needed.
[2016-09-06 14:00] LABS: ANION GAP 5 MEQ/L (8-16); BLOOD UREA NITROGEN 6 MG/DL (7-18); CALCIUM LEVEL 9.1 MG/DL (8.5-10.1); CARBON DIOXIDE LEVEL 28 MEQ/L (21-32); CHLORIDE LEVEL 100 MEQ/L (98-107); CREATININE FOR GFR 0.87 MG/DL (0.55-1.02); GLOMERULAR FILTRATION RATE > 60.0 (>51); GLUCOSE, FASTING 102 MG/DL (70-105); MAGNESIUM LEVEL 2.4 MG/DL (1.8-2.4); POTASSIUM SERUM 4.3 MEQ/L (3.5-5.1); SODIUM LEVEL 133 MEQ/L (136-145)
[2016-09-06] MEDS: SENOKOT S TAB PO SCH ×2 (14:30→21:24)
[2016-09-06] MEDS: MIRALAX *UNIT DOSE* 17GM PACKET PO SCH (14:33)
[2016-09-06] MEDS: oxyBUTYnin *DITROPAN XL* 5 MG TABCR PO SCH (21:24)
[2016-09-06] MEDS: ATORVASTATIN 20 MG TAB PO SCH (21:24)
[2016-09-06] MEDS: traZODone 50 MG TAB PO PRN (21:24)
[2016-09-06] MEDS: MONTELUKAST 10 MG TAB PO SCH (21:24)
[2016-09-06] MEDS: ALBUTEROL 90 MCG/ACT 8GM HFA INHALER INH PRN (21:33)
--- NOTE | 2016-09-07 02:18 | HPE ---
DATE OF ADMISSION: 09/05/2016 HISTORY OF PRESENT ILLNESS: Please refer to psychiatric history and evaluation for further details on this admission. This examination and history is intended for medical issues, which may need treatment, followup or consult on this 55-year-old female that was transferred down from the medical floor after having been treated for abdominal pain. She also has had a full consult since being transferred down by Dr. Parada regarding her numerous medical complaints. See consultation for further details on her medical complaints. ALLERGIES: No known allergies. PAST MEDICAL HISTORY: 1. Seizure disorder. 2. Asthma. 3. Gastroesophageal reflux disease (GERD). 4. Megaloblastic anemia. 5. Dyslipidemia. 6. Depression. 7. Anxiety. 8. Vitamin D deficiency. 9. Insomnia. 10. Allergic rhinitis. 11. Chronic gastrointestinal symptoms and complaints. 12. Hyponatremia. PAST SURGICAL HISTORY: 1. 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 2. Hysterectomy. 3. Colonoscopy times four. 4. She recently had an esophagogastroduodenoscopy (EGD) in August of 2016. 5. Breast biopsy on the left and right, benign. 6. Appendectomy. 7. Esophagogastroduodenoscopy (EGD). 8. Colonoscopy recently. 9. Diagnosed with hiatal hernia. She is on chronic Prilosec. FAMILY HISTORY: One brother . Father due to diabetes, hypertension, coronary artery disease. Mother due to colon cancer and she also had hypertension and coronary artery disease. SOCIAL HISTORY: She is divorecd. Smokes one pack of cigarettes per day for 36 years. She does not use recreational drugs. REVIEW OF SYSTEMS: Noted in consultation done by Dr. Parada. The patient answers yes to about every question on review of systems. It is difficult to ascertain which is accurate. HOME MEDICATIONS: - ProAir one inhalation every 4 hours as needed for shortness of breath or wheeze - Lipitor 20 mg by mouth nightly - buspirone 10 mg by mouth three times a day - Zyrtec 10 mg by mouth nightly - Cipro 500 mg by mouth twice a day started on the medical floor - vitamin D 1000 mcg by mouth daily - folic acid 1 mg daily - Breo Ellipta one inhalation every morning - Keppra 1000 mg by mouth twice a day and 250 by mouth at night in addition - Flagyl 500 mg every 8 hours - Singulair 10 mg by mouth nightly - omeprazole 20 mg by mouth in the morning - oxybutynin 10 mg by mouth at night - vitamin D 50,000 units by mouth every Friday PHYSICAL EXAMINATION: Blood pressure 130/76, pulse 76, respirations 18, temperature 98.6. The patient is alert and oriented times three. Pupils equal and react to light. Extraocular muscles intact. Cornea and sclerae clear. Conjunctivae were normal. No facial asymmetry. Pharynx, tongue and gums pink and moist. Tongue is midline. Neck is supple without lymphadenopathy. No thyromegaly, no goiter. Carotids 2+ without bruit. Chest clear to auscultation without wheeze or retraction. Heart is regular. Abdomen is benign, soft, nontender. No masses, bruits. No organomegaly. Bowel sounds positive. Genitourinary/rectal: Not done. Extremities: No cyanosis, clubbing or edema. Peripheral pulses equal and palpable bilaterally. Skin is warm and dry. Cranial nerves II-XII grossly intact. IMPRESSION/PLAN: 1. Psychiatric plan per psychiatry. 2. See consultation by Dr. Parada on continued abdominal pain. Will continue the treatment for enteritis. 3. Hyponatremia. Baseline sodium is 139-137. Today, she is 133. Will continue to monitor and monitor her intake and output (I and O) and fluid intake. 4. Seizure disorder. Currently stable. 5. History of asthma. Stable. 6. Hyperlipidemia. Continue diet and medication. 7. Allergic rhinitis. Continue current medication. 8. Neurogenic bladder. Continue oxybutynin.
[2016-09-07] MEDS: metroNIDAZOLE (FLAGYL) 500 MG TAB PO SCH ×3 (06:13→21:00)
[2016-09-07] MEDS: CIPROFLOXACIN 500 MG TAB PO SCH (06:13)
[2016-09-07 06:31] VITALS: BP 124/58
[2016-09-07 06:39] LABS: MEAN CORPUSCULAR HGB CONC 33.9 g/dl (32.0-36.5); MEAN CORPUSCULAR VOLUME 88.5 fl (80.0-96.0); RED CELL DISTRIBUTION WIDTH 12.7 % (11.5-14.5); WHITE BLOOD COUNT 3.8 K/mm3 (4.0-10.0)
[2016-09-07 06:49] LABS: ANION GAP 7 MEQ/L (8-16); BLOOD UREA NITROGEN 6 MG/DL (7-18); CALCIUM LEVEL 9.5 MG/DL (8.5-10.1); CARBON DIOXIDE LEVEL 28 MEQ/L (21-32); CHLORIDE LEVEL 99 MEQ/L (98-107); CREATININE FOR GFR 0.86 MG/DL (0.55-1.02); GLOMERULAR FILTRATION RATE > 60.0 (>51); GLUCOSE, FASTING 99 MG/DL (70-105); MAGNESIUM LEVEL 2.4 MG/DL (1.8-2.4); POTASSIUM SERUM 4.6 MEQ/L (3.5-5.1); SODIUM LEVEL 134 MEQ/L (136-145)
[2016-09-07] MEDS: CYANOCOBALAMIN 500 MCG TAB PO SCH (07:43)
[2016-09-07] MEDS: busPIRone 10 MG TAB PO SCH ×3 (07:44→21:00)
[2016-09-07] MEDS: levETIRAcetam 250MG TABLET (KEPPRA) PO SCH ×3 (07:44→21:02)
[2016-09-07] MEDS: CETIRIZINE (ZyrTEC) 10 MG TAB PO SCH (07:44)
[2016-09-07] MEDS: MIRALAX *UNIT DOSE* 17GM PACKET PO SCH (07:44)
[2016-09-07] MEDS: ESCITALOPRAM OXALATE 10 MG TAB (LEXAPRO) PO SCH (07:44)
[2016-09-07] MEDS: SENOKOT S TAB PO SCH ×2 (07:44→20:59)
[2016-09-07] MEDS: OMEPRAZOLE 20 MG CAP PO SCH (07:44)
[2016-09-07] MEDS: FOLIC ACID 1 MG TAB PO SCH (07:44)
[2016-09-07] MEDS ORDERED: ESCITALOPRAM OXALATE 10 MG TAB (LEXAPRO) PO ONE (09:00)
[2016-09-07] MEDS: ACETAMINOPHEN TAB 650MG DOSE (2X325MG) PO PRN ×2 (09:45→20:59)
[2016-09-07 18:00] VITALS: BP 108/66
[2016-09-07] MEDS: traZODone 50 MG TAB PO PRN (20:59)
[2016-09-07] MEDS: oxyBUTYnin *DITROPAN XL* 5 MG TABCR PO SCH (20:59)
[2016-09-07] MEDS: ATORVASTATIN 20 MG TAB PO SCH (20:59)
[2016-09-07] MEDS: MONTELUKAST 10 MG TAB PO SCH (21:00)
--- NOTE | 2016-09-07 22:46 | IPN ---
DATE: 09/07/2016 A 55-year-old female with history of depression, admitted for exacerbation of the symptoms and suicidal ideation. SUBJECTIVE: "I feel about the same. I'm also very confused." OBJECTIVE: No major changes since yesterday during the first evaluation. The patient continues to feel depressed, has psychomotor retardation. Poor monotone speech. The patient is interacting very little with other patients and staff and has a tendency to stay in the room. MENTAL STATUS EXAMINATION: The patient is dressed in [facility]. The patient is cooperative./ poor eye contact. Speech is soft and monotone. Mood is depressed and anxious. Affect is restricted. No delusions or hallucinations. Memory is fair. Patient is full oriented. Associations are intact. Thinking is logical. Thought content is appropriate. The patient is able to contract for safety while in the hospital. Insight and judgment are limited. ASSESSMENT: 1. Depression. 2. Suicidal ideation. PLAN: 1. Continue with Lexapro 20 mg by mouth every morning. 2. Continue with BuSpar 10 mg by mouth three times a day. 3. Continue with trazodone 50 mg by mouth at bedtime as needed for insomnia. 4. Continue medication management, individual and group therapy.
[2016-09-08 06:00] VITALS: BP 120/62
[2016-09-08 07:06] LABS: ANION GAP 6 MEQ/L (8-16); BLOOD UREA NITROGEN 7 MG/DL (7-18); CALCIUM LEVEL 8.7 MG/DL (8.5-10.1); CARBON DIOXIDE LEVEL 28 MEQ/L (21-32); CHLORIDE LEVEL 102 MEQ/L (98-107); CREATININE FOR GFR 0.82 MG/DL (0.55-1.02); GLOMERULAR FILTRATION RATE > 60.0 (>51); GLUCOSE, FASTING 97 MG/DL (70-105); POTASSIUM SERUM 4.7 MEQ/L (3.5-5.1); SODIUM LEVEL 136 MEQ/L (136-145)
[2016-09-08] MEDS: MIRALAX *UNIT DOSE* 17GM PACKET PO SCH (08:41)
[2016-09-08] MEDS: FOLIC ACID 1 MG TAB PO SCH (08:42)
[2016-09-08] MEDS: CYANOCOBALAMIN 500 MCG TAB PO SCH (08:42)
[2016-09-08] MEDS: levETIRAcetam 250MG TABLET (KEPPRA) PO SCH ×3 (08:42→21:05)
[2016-09-08] MEDS: ESCITALOPRAM OXALATE 10 MG TAB (LEXAPRO) PO SCH (08:42)
[2016-09-08] MEDS: CETIRIZINE (ZyrTEC) 10 MG TAB PO SCH (08:42)
[2016-09-08] MEDS: SENOKOT S TAB PO SCH ×2 (08:43→21:04)
[2016-09-08] MEDS: busPIRone 10 MG TAB PO SCH ×3 (08:43→21:06)
[2016-09-08] MEDS: OMEPRAZOLE 20 MG CAP PO SCH (08:43)
[2016-09-08] MEDS: ACETAMINOPHEN TAB 650MG DOSE (2X325MG) PO PRN (16:44)
[2016-09-08 18:00] VITALS: BP 137/73
[2016-09-08] MEDS: oxyBUTYnin *DITROPAN XL* 5 MG TABCR PO SCH (21:03)
[2016-09-08] MEDS: MONTELUKAST 10 MG TAB PO SCH (21:04)
[2016-09-08] MEDS: traZODone 50 MG TAB PO PRN (21:05)
[2016-09-08] MEDS: ATORVASTATIN 20 MG TAB PO SCH (21:05)
[2016-09-08] MEDS: ALBUTEROL 90 MCG/ACT 8GM HFA INHALER INH PRN (21:10)
--- NOTE | 2016-09-08 22:02 | IPN ---
DATE: 09/08/2016 55-year-old female with a history of depression, admitted for exacerbation of symptoms of depression and suicidal ideation. SUBJECTIVE: "I am feeling a little better." OBJECTIVE: The patient has improved slightly since admission. The patient is now denying side effect from the medication. The patient is no longer confused. Her psychomotor retardation has improved. Her facial expression is not as restricted. The patient is able to interact better with other peers and staff. No evidence of psychotic symptoms. MENTAL STATUS EXAMINATION: The patient is dressed in [facility]. The patient is cooperative during the interview and has fair eye contact. Speech is slow and monotone. Mood is depressed and anxious but improved. Affect is restricted but also improved. No delusions or hallucinations. Memory is fair. The patient is fully oriented. Associations are intact. Thinking is logical. Thought content is appropriate. The patient is able to contract for safety while in our unit. Insight and judgment is limited. ASSESSMENT: 1. Depression. 2. Suicidal ideation. PLAN: 1. Continue Lexapro 20 mg by mouth in the morning. 2. Continue BuSpar 10 mg by mouth three times a day. 3. Continue with trazodone 50 mg by mouth at night as needed for insomnia. 4. Continue medication management, individual and group therapy.
[2016-09-09 06:00] VITALS: BP 135/78
[2016-09-09 06:45] LABS: MEAN CORPUSCULAR HEMOGLOBIN 29.9 pg (27.0-33.0); MEAN CORPUSCULAR HGB CONC 33.9 g/dl (32.0-36.5); MEAN CORPUSCULAR VOLUME 88.4 fl (80.0-96.0); RED CELL DISTRIBUTION WIDTH 12.8 % (11.5-14.5); WHITE BLOOD COUNT 4.4 K/mm3 (4.0-10.0)
[2016-09-09 07:03] LABS: ANION GAP 6 MEQ/L (8-16); BLOOD UREA NITROGEN 7 MG/DL (7-18); CALCIUM LEVEL 8.6 MG/DL (8.5-10.1); CARBON DIOXIDE LEVEL 29 MEQ/L (21-32); CHLORIDE LEVEL 103 MEQ/L (98-107); CREATININE FOR GFR 0.82 MG/DL (0.55-1.02); GLOMERULAR FILTRATION RATE > 60.0 (>51); GLUCOSE, FASTING 92 MG/DL (70-105); MAGNESIUM LEVEL 2.3 MG/DL (1.8-2.4); SODIUM LEVEL 138 MEQ/L (136-145)
[2016-09-09] MEDS ORDERED: VITAMIN D 50,000 UNITS CAPSULE (ERGOCALCIFEROL 1.25MG) PO SCH (09:00)
[2016-09-09] MEDS: MIRALAX *UNIT DOSE* 17GM PACKET PO SCH (09:04)
[2016-09-09] MEDS: levETIRAcetam 250MG TABLET (KEPPRA) PO SCH ×3 (09:05→20:26)
[2016-09-09] MEDS: OMEPRAZOLE 20 MG CAP PO SCH (09:05)
[2016-09-09] MEDS: SENOKOT S TAB PO SCH ×2 (09:05→20:23)
[2016-09-09] MEDS: FOLIC ACID 1 MG TAB PO SCH (09:05)
[2016-09-09] MEDS: CETIRIZINE (ZyrTEC) 10 MG TAB PO SCH (09:05)
[2016-09-09] MEDS: CYANOCOBALAMIN 500 MCG TAB PO SCH (09:05)
[2016-09-09] MEDS: ESCITALOPRAM OXALATE 10 MG TAB (LEXAPRO) PO SCH (09:05)
[2016-09-09] MEDS: busPIRone 10 MG TAB PO SCH ×3 (09:05→20:23)
[2016-09-09 11:41] VITALS: BP 129/76
[2016-09-09] MEDS: ALBUTEROL 90 MCG/ACT 8GM HFA INHALER INH PRN (12:49)
--- NOTE | 2016-09-09 16:38 | IPN ---
DATE: 09/09/2016 55-year-old female with a history of depression, admitted for exacerbation of symptoms of depression and suicidal thoughts. SUBJECTIVE: "I am feeling much better." OBJECTIVE: The patient continues to improve. She no longer has psychomotor retardation. Her facial expression is less restricted. Patient is denying any side effect from the medication. No evidence of psychotic symptoms. No auditory or visual hallucinations or delusions. Patient denies symptoms of confusion. MENTAL STATUS EXAMINATION: The patient is dressed in [facility]. The patient is calm and cooperative. Has fair eye contact. Speech is normal in rate, volume, artiuculation, is quiet and unspontaneous. Mood is depressed and anxious but significantly improved from admission. Affect is congruent with mood. No delusions or hallucinations. Memory is fair. The patient is fully oriented. Associations are intact. Thinking is logical. Thought content is appropriate. The patient is able to contract for safety in our unit. Insight and judgment is limited. ASSESSMENT: 1. Depression. 2. Suicidal ideation. PLAN: 1. Continue Lexapro 20 mg by mouth in the morning. 2. Continue BuSpar 10 mg by mouth three times a day. 3. Continue with trazodone as needed for insomnia. 4. Continue medication management, individual and group therapy.
[2016-09-09 18:00] VITALS: BP 131/61
[2016-09-09] MEDS: ATORVASTATIN 20 MG TAB PO SCH (20:23)
[2016-09-09] MEDS: MONTELUKAST 10 MG TAB PO SCH (20:23)
[2016-09-09] MEDS: oxyBUTYnin *DITROPAN XL* 5 MG TABCR PO SCH (20:23)
[2016-09-09] MEDS: ACETAMINOPHEN TAB 650MG DOSE (2X325MG) PO PRN (20:25)
[2016-09-09] MEDS: traZODone 50 MG TAB PO PRN (20:26)
[2016-09-10 06:20] VITALS: BP 123/69
[2016-09-10] MEDS: MIRALAX *UNIT DOSE* 17GM PACKET PO SCH (09:08)
[2016-09-10] MEDS: busPIRone 10 MG TAB PO SCH ×3 (09:09→20:11)
[2016-09-10] MEDS: ESCITALOPRAM OXALATE 10 MG TAB (LEXAPRO) PO SCH (09:09)
[2016-09-10] MEDS: OMEPRAZOLE 20 MG CAP PO SCH (09:09)
[2016-09-10] MEDS: CYANOCOBALAMIN 500 MCG TAB PO SCH (09:09)
[2016-09-10] MEDS: levETIRAcetam 250MG TABLET (KEPPRA) PO SCH ×3 (09:09→21:04)
[2016-09-10] MEDS: CETIRIZINE (ZyrTEC) 10 MG TAB PO SCH (09:09)
[2016-09-10] MEDS: FOLIC ACID 1 MG TAB PO SCH (09:09)
[2016-09-10] MEDS: SENOKOT S TAB PO SCH ×2 (09:09→20:11)
[2016-09-10 11:18] VITALS: BP 144/65
--- NOTE | 2016-09-10 16:33 | IPN ---
DATE: 09/10/2016 55-year-old female with history of depression, admitted for exacerbation of symptoms of depression and suicidal thoughts. SUBJECTIVE: "I am okay." OBJECTIVE: Patient has been improving. Today, she appears to have more restricted facial expression but she has no psychomotor retardation. Patient is denying side effect from the medication. Patient does not have auditory or visual hallucinations or delusions. Patient does not report symptoms of confusion any longer. MENTAL STATUS EXAMINATION: Patient is dressed in [facility]. Patient is cooperative, has fair eye contact. Her speech is normal in rate and, volume, articulation is coherent and is spontaneous. Mood is depressed but significantly improved from admission. Affect is congruent with mood. There is no delusions or hallucinations. Memory, attention, and concentration are fair. Thought content is appropriate. Patient is able to contract for safety and denies suicidal or homicidal ideation. Insight and judgment is fair. ASSESSMENT: 1. Depression. 2. Suicidal ideation. PLAN: 1. Continue with Lexapro 20 mg by mouth every morning. 2. Continue with BuSpar 10 mg by mouth three times a day. 3. Continue with trazodone as needed for insomnia. 4. Continue medication management, individual and group therapy.
[2016-09-10 18:09] VITALS: BP 132/61
[2016-09-10] MEDS: oxyBUTYnin *DITROPAN XL* 5 MG TABCR PO SCH (20:10)
[2016-09-10] MEDS: ACETAMINOPHEN TAB 650MG DOSE (2X325MG) PO PRN (20:11)
[2016-09-10] MEDS: MONTELUKAST 10 MG TAB PO SCH (20:11)
[2016-09-10] MEDS: ATORVASTATIN 20 MG TAB PO SCH (20:11)
[2016-09-10] MEDS: traZODone 50 MG TAB PO PRN (20:11)
[2016-09-11 06:34] VITALS: BP 119/73
[2016-09-11 06:37] VITALS: BP 112/73
[2016-09-11 07:02] LABS: MEAN CORPUSCULAR HEMOGLOBIN 29.7 pg (27.0-33.0); MEAN CORPUSCULAR VOLUME 87.2 fl (80.0-96.0); RED CELL DISTRIBUTION WIDTH 12.9 % (11.5-14.5); WHITE BLOOD COUNT 6.4 K/mm3 (4.0-10.0)
[2016-09-11 07:22] LABS: ANION GAP 8 MEQ/L (8-16); BLOOD UREA NITROGEN 8 MG/DL (7-18); CALCIUM LEVEL 9.1 MG/DL (8.5-10.1); CARBON DIOXIDE LEVEL 27 MEQ/L (21-32); CHLORIDE LEVEL 98 MEQ/L (98-107); CREATININE FOR GFR 0.81 MG/DL (0.55-1.02); GLOMERULAR FILTRATION RATE > 60.0 (>51); GLUCOSE, FASTING 100 MG/DL (70-105); MAGNESIUM LEVEL 2.2 MG/DL (1.8-2.4); POTASSIUM SERUM 4.2 MEQ/L (3.5-5.1); SODIUM LEVEL 133 MEQ/L (136-145)
[2016-09-11] MEDS: CETIRIZINE (ZyrTEC) 10 MG TAB PO SCH (08:08)
[2016-09-11] MEDS: FOLIC ACID 1 MG TAB PO SCH (08:08)
[2016-09-11] MEDS: SENOKOT S TAB PO SCH (08:08)
[2016-09-11] MEDS: busPIRone 10 MG TAB PO SCH (08:08)
[2016-09-11] MEDS: OMEPRAZOLE 20 MG CAP PO SCH (08:08)
[2016-09-11] MEDS: CYANOCOBALAMIN 500 MCG TAB PO SCH (08:08)
[2016-09-11] MEDS: ESCITALOPRAM OXALATE 10 MG TAB (LEXAPRO) PO SCH (08:09)
[2016-09-11] MEDS: levETIRAcetam 250MG TABLET (KEPPRA) PO SCH (08:09)
[2016-09-11] MEDS: MIRALAX *UNIT DOSE* 17GM PACKET PO SCH (08:09)
[2016-09-11] MEDS: ALBUTEROL 90 MCG/ACT 8GM HFA INHALER INH PRN (08:11)
[2016-09-11] MEDS ORDERED: ESCI10TA2 PO (10:36)
--- NOTE | 2016-09-11 21:57 | MHDS ---
DATE OF ADMISSION: 09/05/2016 DATE OF DISCHARGE: 09/11/2016 LEGAL STATUS AT ADMISSION: 9.39 legal status. HISTORY OF PRESENT ILLNESS: A 55-year-old female with a history of depression admitted to our unit on a 9.39 legal status. According to the chart, the patient came to the emergency room to be evaluated for depression and suicidal thoughts. The patient was making statements such as "I don't to want to live anymore." The patient reports that her doctor took her off her psychiatric medications. However, it appears that the last refill was filled on 07/19/2016. She says that she has not taken it for at least 20 days. She also said that she decreased the dosage of Keppra at bedtime by herself since "it made me sleep all day," and also "I was feeling sick and could not take the depression medicine." The patient was discharged from our unit on 03/29/2016. The patient was placed at [facility] ([facility] in [place], but states that she did not like the place so she is now living in an apartment on her own. During the interview today, the patient reports feeling depressed, sad, lonely with low energy and low appetite. She describes her sleep as restless. She feels anxious. The patient reports low self-esteem. The patient reports that she has some problems with memory and that she has intermittent suicidal thoughts. During the interview, there is no evidence of psychotic symptoms. No auditory or visual hallucinations or delusions. LABORATORY DATA AT ADMISSION: CBC is unremarkable, except hematocrit of 35.2. CMP shows a sodium of 133. She has had repeated BMPs and the sodium was normalized but again on 09/11/2016, it came down to 133. The rest of the BMP was within normal limits. Urine drug screen was negative at admission, as well as Blood Alchohol level. HOSPITAL COURSE: After the first evaluation, the patient was admitted and was placed on her medical medications and also was restarted on Lexapro 20 mg by mouth daily and Keppra at 1000 mg by mouth every morning and 1250 mg by mouth at bedtime. She was also restarted on BuSpar 10 mg by mouth three times a day. With these medications, the patient was stabilized. Her mood improved slowly but steadily. A consultation to the hospitalist was done since the patient was having some electrolyte problems and she was loaded with Keppra at her admission through the emergency room. The hospitalist reported that she is a poor historian and the information is limited "at best." He mentioned that she has a tendency to answer positive to all the questions about pain in all the systems, so therefore she was not reliable. We could observe how the patient tolerates well the medication, tolerates well Lexapro and Keppra. She is not oversedated. She does not have periods of confusion. She is not having symptoms of gastrointestinal (GI) problems or disturbance. She is tolerating well the medications at the current dose. I discussed that fact with the patient and also the need for her to continue taking the medications as prescribed and for her not to change the dosages. Two days prior to her discharge, the patient stated that she needs help , that she lives in an apartment and has no transportation, so she has to walk to the store and come with the groceries up to the apartment and she is having problems doing that because of her physical limitations and physical illness. The options [facility] placement to [facility] was brought up with the traffic and transport planner, but she said that she has a cat that she loves very much and does not want to give him up and also she does not want to lose her independence. Therefore, she has chosen to stay in the apartment for now. At the moment of discharge, the patient is in stable condition with no auditory or visual hallucinations or delusions. No suicidal or homicidal ideation. The patient is motivated for treatment and is willing to continue with her appointments and taking her medications. MEDICATIONS AT DISCHARGE: Lexapro 20 mg by mouth daily. She is to continue with the BuSpar 10 mg by mouth three times a day and the Keppra at 1000 mg by mouth every morning and 1250 mg by mouth at bedtime along with the other medications for her medical condition. MENTAL STATUS EXAMINATION AT DISCHARGE: The patient is dressed in [facility]. The patient is calm and cooperative. Her speech is clear, coherent with normal rate and is spontaenous. The patient has good eye contact. Mood is slightly depressed but significantly improved from admission. Affect is appropriate and congruent with mood. The patient is oriented to time, place, person and situation. She maintains attention and concentration correctly. Instant recall, recent and remote memory are intact. Thought processes are coherent, logical and goal-directed. The patient does not have auditory or visual hallucinations. The patient does not have paranoid, persecutory, somatic, grandiose, or mosque delusions. The patient is denying suicidal or homicidal ideation. Judgment and insight are fair. DISCHARGE DIAGNOSES: AXIS I: Major depressive disorder. AXIS II: Deferred. AXIS III: Epilepsy, asthma. CONDITION ON DISCHARGE: The patient is stable. No suicidal or homicidal ideation. No auditory or visual hallucinations. No delusions. INSTRUCTIONS TO THE PATIENT: The patient is to continue taking her medications as prescribed and followup appointments. She is advised to maintain absolute sobriety from drugs and alcohol. The patient has scheduled appointment for medication management, individual psychotherapy, and primary care physician. CARLEEN
== END 2016-09-11 12:45 | disposition home or self-care (01) | DRG 754 ==
LOC: M ED 09:10 → M ED INP 12:37 → M PSY 13:35
PROVIDERS: ADMIT Psychiatry & Neurology Psychiatry; ATTEND Psychiatry & Neurology Psychiatry
DX: F32.9 Major depressive disorder, single episode, unspecified (principal); G40.409 Other generalized epilepsy and epileptic syndromes, not intractable, without status epilepticus; J45.909 Unspecified asthma, uncomplicated; E87.1 Hypo-osmolality and hyponatremia; I10 Essential (primary) hypertension; F41.9 Anxiety disorder, unspecified; E78.5 Hyperlipidemia, unspecified; E55.9 Vitamin D deficiency, unspecified; R32 Unspecified urinary incontinence; D53.1 Other megaloblastic anemias, not elsewhere classified; G47.00 Insomnia, unspecified; K52.9 Noninfective gastroenteritis and colitis, unspecified; F17.210 Nicotine dependence, cigarettes, uncomplicated; Z79.899 Other long term (current) drug therapy; Z79.51 Long term (current) use of inhaled steroids; N31.9 Neuromuscular dysfunction of bladder, unspecified

== ENCOUNTER 2016-09-14 10:47 | Inpatient (IN) | payer OTHER ==
[~2016-09-14] VITALS: Ht 172.7 cm; Wt 90.2 kg
[2016-09-14 11:30] LABS: MEAN CORPUSCULAR HEMOGLOBIN 30.3 pg (27.0-33.0); MEAN CORPUSCULAR HGB CONC 34.8 g/dl (32.0-36.5); RED CELL DISTRIBUTION WIDTH 12.9 % (11.5-14.5)
[2016-09-14 11:50] LABS: METHADONE URINE NEGATIVE (NEGATIVE)
[2016-09-14 11:59] LABS: ALBUMIN 4.9 GM/DL (3.2-5.2); ALBUMIN/GLOBULIN RATIO 1.36 (1.00-1.93); ALKALINE PHOSPHATASE 146 U/L (45-117); ALT/SGPT 32 U/L (12-78); ANION GAP 11 MEQ/L (8-16); AST/SGOT 18 U/L (15-37); BILIRUBIN,DIRECT 0.2 MG/DL (0.0-0.2); BILIRUBIN,TOTAL 0.6 MG/DL (0.2-1.0); BLOOD UREA NITROGEN 5 MG/DL (7-18); CALCIUM LEVEL 9.5 MG/DL (8.5-10.1); CARBON DIOXIDE LEVEL 23 MEQ/L (21-32); CHLORIDE LEVEL 94 MEQ/L (98-107); CREATININE FOR GFR 0.79 MG/DL (0.55-1.02); GLOMERULAR FILTRATION RATE > 60.0 (>51); GLUCOSE, FASTING 115 MG/DL (70-105); POTASSIUM SERUM 3.9 MEQ/L (3.5-5.1); SODIUM LEVEL 128 MEQ/L (136-145); TOTAL PROTEIN 8.5 GM/DL (6.4-8.2)
[2016-09-14] MEDS ORDERED: ACETAMINOPHEN TAB 650MG DOSE (2X325MG) PO ONE (12:00)
[2016-09-14] MEDS ORDERED: LORazepam 2 MG TAB PO STA (12:31)
[2016-09-14 16:46] VITALS: BP 141/78
[2016-09-14] MEDS ORDERED: MAALOX 30 ML SUSP *UDC PO PRN (17:45)
[2016-09-14] MEDS ORDERED: MOM 30ML SUSPENSION UDC PO PRN (17:45)
[2016-09-14] MEDS: oxyBUTYnin *DITROPAN XL* 5 MG TABCR PO SCH (20:12)
[2016-09-14] MEDS: MONTELUKAST 10 MG TAB PO SCH (20:13)
[2016-09-14] MEDS: busPIRone 10 MG TAB PO SCH (20:13)
[2016-09-14] MEDS: levETIRAcetam 250MG TABLET (KEPPRA) PO SCH ×2 (20:13→20:15)
[2016-09-14] MEDS: metroNIDAZOLE (FLAGYL) 500 MG TAB PO SCH (20:13)
[2016-09-14] MEDS: CYANOCOBALAMIN 500 MCG TAB PO SCH (20:13)
[2016-09-14] MEDS: ATORVASTATIN 20 MG TAB PO SCH (20:13)
[2016-09-14] MEDS: CETIRIZINE (ZyrTEC) 10 MG TAB PO SCH (20:13)
[2016-09-14] MEDS: FOLIC ACID 1 MG TAB PO SCH (20:14)
[2016-09-14] MEDS: OMEPRAZOLE 20 MG CAP PO SCH (20:14)
[2016-09-14] MEDS: ESCITALOPRAM OXALATE 10 MG TAB (LEXAPRO) PO SCH (20:16)
[2016-09-15] MEDS: metroNIDAZOLE (FLAGYL) 500 MG TAB PO SCH ×3 (06:22→20:42)
[2016-09-15 06:39] VITALS: BP 125/69
[2016-09-15] MEDS: FOLIC ACID 1 MG TAB PO SCH (09:07)
[2016-09-15] MEDS: levETIRAcetam 250MG TABLET (KEPPRA) PO SCH ×3 (09:07→20:43)
[2016-09-15] MEDS: ESCITALOPRAM OXALATE 10 MG TAB (LEXAPRO) PO SCH (09:07)
[2016-09-15] MEDS: OMEPRAZOLE 20 MG CAP PO SCH (09:07)
[2016-09-15] MEDS: NICOTINE 21MG/24HR 1 EA TRANSDERMAL TD SCH (09:07)
[2016-09-15] MEDS: CETIRIZINE (ZyrTEC) 10 MG TAB PO SCH (09:07)
[2016-09-15] MEDS: busPIRone 10 MG TAB PO SCH ×3 (09:07→20:41)
[2016-09-15] MEDS: CYANOCOBALAMIN 500 MCG TAB PO SCH (09:07)
[2016-09-15] MEDS: ACETAMINOPHEN TAB 650MG DOSE (2X325MG) PO PRN (11:11)
[2016-09-15 18:00] VITALS: BP 115/56
[2016-09-15] MEDS: MONTELUKAST 10 MG TAB PO SCH (20:41)
[2016-09-15] MEDS: oxyBUTYnin *DITROPAN XL* 5 MG TABCR PO SCH (20:42)
[2016-09-15] MEDS: ATORVASTATIN 20 MG TAB PO SCH (20:42)
--- NOTE | 2016-09-15 21:12 | MHHPE ---
DATE OF ADMISSION: 09/14/2016 DATE OF SERVICE: 09/15/16 HISTORY OF PRESENT ILLNESS: The patient today complains, "I can't focus and I can't function." The patient was just discharged from the hospital on 09/11/2016. Apparently, her sister went to see her and the patient was talking about voices telling her that "Stay away. " She would not explain further what the voices were about. Today she tells me that when she was discharged home she smelled gas in her apartment. She called the landlord. She says that she is not able to function. She cannot be around people. She cannot eat. She cannot take a bath. She keeps hearing this voice in her head telling her, "I want to ." I think that this is more her own thinking than actual hallucinations. She complains that her body hurts. When I asked her to elaborate, she said her legs and her arms hurt. She says that she cannot focus on anything. She cannot sleep because of the fact that she keeps thinking that she wants to . She says that she is feeling depressed and she is feeling very anxious. Upon admission to the unit, she told staff that she does not feel that she can live on her own anymore and she wants to be referred to [facility] As I said, the patient was just discharged. She was admitted from 09/05/2016 to 09/11/2016 at [facility] inpatient mental health unit. She was admitted for depression and suicidal ideation. PAST PSYCHIATRIC HISTORY: The patient has a history of prior treatment for depression and multiple hospitalizations to the unit. Apparently, she is supposed to be on BuSpar 10 mg three times a day, trazodone 50 mg at night as needed for insomnia, and Lexapro 20 mg daily. I did not elicit any history of suicidal attempts. FAMILY HISTORY: The patient has a brother with schizophrenia. SUBSTANCE ABUSE HISTORY: She has a remote history of alcohol problems but not at this point. MEDICAL HISTORY: The patient has a history of asthma and grand mal seizures. REVIEW OF SYSTEMS: Blood pressure 125/69, pulse 66, respirations 20. APPEARANCE: The patient is casually dressed, appears stated age. NEUROMUSCULAR SYSTEM: Gait is normal. There were no involuntary movements. All other systems were reviewed and found to be negative. MENTAL STATUS EXAMINATION: The patient is alert, oriented times three. She is pleasant, cooperative, verbally spontaneous. There is no formal thought disorder noted. Mood is depressed and anxious. Affect is full range and appropriate. As I said, I did not feel that she was having hallucinations, but it was just her own thinking telling her that she wanted to . She is not suicidal or homicidal. Concentration is fair. Insight and judgment poor. DIAGNOSES: 1. Other specified depressive disorder. 2. Seizure disorder. 3. Asthma. TREATMENT PLAN: At this point, we will further observe and evaluate this patient for her report of hallucinations, which I think is just her thinking telling her that she wants to . She is not homicidal. The patient seems to be depressed and anxious. We will continue to monitor for this. As I said, I do not think that she is having hallucinations. We will continue her current medications of Lexapro 20 mg daily, BuSpar 10 mg three times a day, trazodone 50 mg at night as needed for insomnia. We will continue to titrate her medications as indicated. She is confused but I really did not elicit any confusion in this patient. She is also focused that she wants to go live at [facility] this time. CARLEEN
[2016-09-15] MEDS: traZODone 50 MG TAB PO PRN (21:30)
--- NOTE | 2016-09-16 02:46 | HPE ---
DATE OF ADMISSION: 09/14/2016 HISTORY OF PRESENT ILLNESS: Please refer to psychiatric history and evaluation for further details on this admission. This examination and history is intended for medical issues, which may need treatment, followup or consult on this 55-year-old female who was recently discharged on the 09/11 from inpatient mental health unit ([facility]). ALLERGIES: No known allergies. PAST MEDICAL HISTORY: 1. Seizure disorder. 2. Asthma. 3. Gastroesophageal reflux disease (GERD). 4. Megaloblastic anemia. 5. Dyslipidemia. 6. Depression. 7. Anxiety. 8. Vitamin D deficiency. 9. Insomnia. 10. Allergic rhinitis. 11. Chronic gastrointestinal symptoms and complaints. 12. Hyponatremia. 13. Neurogenic bladder. 14. Hiatal hernia. PAST SURGICAL HISTORY: 1. 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 2. Hysterectomy. 3. Colonoscopy times four. 4. Esophagogastroduodenoscopy done August of 2016. 5. Breast biopsy on the left and right, both benign. 6. Appendectomy. SOCIAL HISTORY: She is . She smokes one pack of cigarettes per day. She does not use recreational drugs. REVIEW OF SYSTEMS: 10-system review was done. She was complaining of urgency, requested a urine culture and sensitivity (C and S) be ordered, which I will do. No hematuria, dysuria or frequency. LABORATORY STUDIES: CBC was normal. Sodium was low at 128, chloride 94, BUN 5, creatinine 0.76. Toxicology screen was negative. Instructed not to over drink of water. BMP will be repeated in the morning. CURRENT MEDICATIONS: - albuterol two puffs by mouth every 4 hours as needed for shortness of breath or wheeze - she had 4 days left of Cipro upon discharge 500 by mouth twice a day - vitamin D 50,000 units every 2 weeks - Incruse one inhalation daily - atorvastatin 20 mg by mouth nightly - buspirone 10 mg by mouth three times a day - cetirizine 10 mg by mouth every morning - vitamin B12 1000 mcg by mouth daily - Lexapro 20 mg by mouth daily - folic acid 1 mg by mouth every morning - Keppra 1000 mg by mouth twice a day, 250 mg of Keppra by mouth nightly - Flagyl 500 by mouth every 8 hours she was to finish for 4 days, which will continue and finish - Singulair 10 mg by mouth nightly - omeprazole 20 mg by mouth every morning - oxybutynin ER 10 mg by mouth nightly PHYSICAL EXAMINATION: 55-year-old female who looks much older than her stated years in no acute distress. Height 68 inches, weight 88.5 kg, body mass index (BMI) 29.7. Blood pressure 125/69, pulse 66, respirations 20, temperature 99. The patient is alert and oriented times three. Pupils equal and react to light. Extraocular muscles intact. Cornea and sclerae clear. Conjunctivae were normal. No facial asymmetry. Pharynx, tongue and gums pink and moist. Tongue is midline. Neck is supple without lymphadenopathy. No thyromegaly, no goiter. Chest clear to auscultation without wheeze or retraction. Heart is regular. Abdomen is benign. Bowel sounds positive. Genitourinary/rectal: Not done. Extremities show equal strength, full range of motion. No cyanosis, clubbing or edema. Peripheral pulses equal and palpable bilaterally. Cranial nerves III-XII grossly intact. IMPRESSION/PLAN: 1. Psychiatric plan per psychiatry. 2. Hyponatremia. Monitor intake and output (I and O). Patient instructed not to over drink water. No more than three glasses total a day. Recheck basic metabolic panel (BMP) in the morning. 3. Seizure disorder, stable. 4. History of asthma, stable. 5. Hyperlipidemia. Continue diet and medication. 6. Neurogenic bladder. Continue oxybutynin. 7. Urgency. Will get a urine for culture and sensitivity (C and S).
[2016-09-16 06:00] VITALS: BP 123/66
[2016-09-16] MEDS: metroNIDAZOLE (FLAGYL) 500 MG TAB PO SCH ×3 (06:07→20:47)
[2016-09-16 07:14] LABS: ANION GAP 4 MEQ/L (8-16); BLOOD UREA NITROGEN 7 MG/DL (7-18); CALCIUM LEVEL 9.4 MG/DL (8.5-10.1); CARBON DIOXIDE LEVEL 32 MEQ/L (21-32); CHLORIDE LEVEL 99 MEQ/L (98-107); CREATININE FOR GFR 0.84 MG/DL (0.55-1.02); GLOMERULAR FILTRATION RATE > 60.0 (>51); GLUCOSE, FASTING 99 MG/DL (70-105); POTASSIUM SERUM 4.4 MEQ/L (3.5-5.1); SODIUM LEVEL 135 MEQ/L (136-145)
[2016-09-16] MEDS: FOLIC ACID 1 MG TAB PO SCH (08:55)
[2016-09-16] MEDS: OMEPRAZOLE 20 MG CAP PO SCH (08:55)
[2016-09-16] MEDS: CETIRIZINE (ZyrTEC) 10 MG TAB PO SCH (08:56)
[2016-09-16] MEDS: NICOTINE 21MG/24HR 1 EA TRANSDERMAL TD SCH (08:56)
[2016-09-16] MEDS: CYANOCOBALAMIN 500 MCG TAB PO SCH (08:56)
[2016-09-16] MEDS: levETIRAcetam 250MG TABLET (KEPPRA) PO SCH ×3 (08:56→20:53)
[2016-09-16] MEDS: ESCITALOPRAM OXALATE 10 MG TAB (LEXAPRO) PO SCH (08:56)
[2016-09-16] MEDS: busPIRone 10 MG TAB PO SCH ×3 (08:56→20:52)
--- NOTE | 2016-09-16 14:57 | IPN ---
DATE OF SERVICE: 09/16/2016 A 55-year-old female with history of depression and seizure disorder admitted with suicidal ideation and auditory hallucinations. SUBJECTIVE: "I've been feeling very depressed. I still have the voices." OBJECTIVE: No major changes from admission. The patient continues to report severe depression with intermittent auditory hallucinations. Denies side effect from the medication. The patient has psychomotor retardation. MENTAL STATUS EXAMINATION: The patient is dressed in [facility]. The patient is cooperative during the examination. Has poor eye contact. The speech is soft and monotone. Mood is depressed. Affect is restricted. The patient reports auditory hallucinations. No evidence of paranoia. Memory, attention, and concentration are fair. The patient reports intermittent suicidal thoughts. Insight and judgment is limited. ASSESSMENT: 1. Depression. 2. Auditory hallucinations. 3. Suicidal ideation. PLAN: 1. Continue with Lexapro 20 mg by mouth every morning. 2. Continue BuSpar 10 mg by mouth three times a day. 3. Continue trazodone 50 mg by mouth nightly as needed for insomnia. 4. Continue medication management, individual and group therapy.
[2016-09-16 18:00] VITALS: BP 138/77
[2016-09-16] MEDS: oxyBUTYnin *DITROPAN XL* 5 MG TABCR PO SCH (20:47)
[2016-09-16] MEDS: traZODone 50 MG TAB PO PRN (20:47)
[2016-09-16] MEDS: MONTELUKAST 10 MG TAB PO SCH (20:47)
[2016-09-16] MEDS: ATORVASTATIN 20 MG TAB PO SCH (20:48)
[2016-09-16] MEDS: ACETAMINOPHEN TAB 650MG DOSE (2X325MG) PO PRN (20:49)
[2016-09-17] MEDS: metroNIDAZOLE (FLAGYL) 500 MG TAB PO SCH (05:49)
[2016-09-17 06:35] VITALS: BP 130/64
[2016-09-17 07:36] LABS: ANION GAP 5 MEQ/L (8-16); BLOOD UREA NITROGEN 8 MG/DL (7-18); CALCIUM LEVEL 9.6 MG/DL (8.5-10.1); CARBON DIOXIDE LEVEL 30 MEQ/L (21-32); CHLORIDE LEVEL 100 MEQ/L (98-107); CREATININE FOR GFR 0.85 MG/DL (0.55-1.02); GLOMERULAR FILTRATION RATE > 60.0 (>51); GLUCOSE, FASTING 100 MG/DL (70-105); POTASSIUM SERUM 4.7 MEQ/L (3.5-5.1); SODIUM LEVEL 135 MEQ/L (136-145)
[2016-09-17] MEDS: CETIRIZINE (ZyrTEC) 10 MG TAB PO SCH (08:51)
[2016-09-17] MEDS: CYANOCOBALAMIN 500 MCG TAB PO SCH (08:51)
[2016-09-17] MEDS: OMEPRAZOLE 20 MG CAP PO SCH (08:52)
[2016-09-17] MEDS: levETIRAcetam 250MG TABLET (KEPPRA) PO SCH ×3 (08:52→20:30)
[2016-09-17] MEDS: busPIRone 10 MG TAB PO SCH ×3 (08:52→20:28)
[2016-09-17] MEDS: FOLIC ACID 1 MG TAB PO SCH (08:52)
[2016-09-17] MEDS: ESCITALOPRAM OXALATE 10 MG TAB (LEXAPRO) PO SCH (08:52)
[2016-09-17] MEDS: NICOTINE 21MG/24HR 1 EA TRANSDERMAL TD SCH (09:00)
--- NOTE | 2016-09-17 14:51 | IPN ---
DATE: 09/17/2016 A 55-year-old female with history of depression and seizure disorder admitted due to suicidal ideation and auditory hallucinations. SUBJECTIVE: "I have been feeling down." OBJECTIVE: No major changes. Reports depression, no energy, hopelessness. The patient has psychomotor retardation, restricted, sad facial expression. Denies side effect from the medication. MENTAL STATUS EXAMINATION: The patient is dressed in [facility]. The patient is cooperative during the examination. She has fair eye contact. Mood is depressed and anxious. Affect is restricted. Denies auditory hallucinations during the interview. Memory, attention and concentration are fair. The patient is able to contract for safety during the interview. Insight and judgment is limited. ASSESSMENT: 1. Depression. 2. Suicidal ideation. PLAN: 1. Continue Lexapro 20 mg by mouth every morning. 2. Continue BuSpar 10 mg by mouth three times a day. 3. Continue trazodone as needed for insomnia. 4. Continue medication management, individual and group therapy.
[2016-09-17 18:00] VITALS: BP 127/74
[2016-09-17] MEDS: ACETAMINOPHEN TAB 650MG DOSE (2X325MG) PO PRN (19:20)
[2016-09-17] MEDS: MONTELUKAST 10 MG TAB PO SCH (20:27)
[2016-09-17] MEDS: oxyBUTYnin *DITROPAN XL* 5 MG TABCR PO SCH (20:27)
[2016-09-17] MEDS: ALBUTEROL 90 MCG/ACT 8GM HFA INHALER INH PRN (20:28)
[2016-09-17] MEDS: ATORVASTATIN 20 MG TAB PO SCH (20:30)
[2016-09-17] MEDS: traZODone 50 MG TAB PO PRN (20:30)
[2016-09-18 05:57] VITALS: BP 150/75
[2016-09-18] MEDS ORDERED: ONDANSETRON 4 MG TAB (S0181) PO ONE (09:00)
[2016-09-18] MEDS: NICOTINE 21MG/24HR 1 EA TRANSDERMAL TD SCH (09:00)
[2016-09-18] MEDS: ESCITALOPRAM OXALATE 10 MG TAB (LEXAPRO) PO SCH (09:43)
[2016-09-18] MEDS: CETIRIZINE (ZyrTEC) 10 MG TAB PO SCH (09:43)
[2016-09-18] MEDS: busPIRone 10 MG TAB PO SCH ×3 (09:43→22:04)
[2016-09-18] MEDS: OMEPRAZOLE 20 MG CAP PO SCH (09:43)
[2016-09-18] MEDS: CYANOCOBALAMIN 500 MCG TAB PO SCH (09:43)
[2016-09-18] MEDS: FOLIC ACID 1 MG TAB PO SCH (09:43)
[2016-09-18] MEDS: levETIRAcetam 250MG TABLET (KEPPRA) PO SCH ×3 (09:44→22:04)
[2016-09-18 11:31] LABS: ALBUMIN 4.1 GM/DL (3.2-5.2); ALBUMIN/GLOBULIN RATIO 1.17 (1.00-1.93); ALKALINE PHOSPHATASE 133 U/L (45-117); ALT/SGPT 23 U/L (12-78); ANION GAP 5 MEQ/L (8-16); AST/SGOT 10 U/L (15-37); BILIRUBIN,TOTAL 0.3 MG/DL (0.2-1.0); BLOOD UREA NITROGEN 5 MG/DL (7-18); CARBON DIOXIDE LEVEL 29 MEQ/L (21-32); CHLORIDE LEVEL 99 MEQ/L (98-107); CREATININE FOR GFR 0.74 MG/DL (0.55-1.02); GLOMERULAR FILTRATION RATE > 60.0 (>51); GLUCOSE, FASTING 104 MG/DL (70-105); POTASSIUM SERUM 4.3 MEQ/L (3.5-5.1); SODIUM LEVEL 133 MEQ/L (136-145); TOTAL PROTEIN 7.6 GM/DL (6.4-8.2)
--- NOTE | 2016-09-18 17:49 | IPN ---
DATE: 09/18/2016 A 55-year-old female with history of depression and seizure disorder admitted due to suicidal ideation and auditory hallucinations. SUBJECTIVE: "I am not feeling good today." OBJECTIVE: Patient continues to report depression, low energy, significant mood fluctuation, and anxiety. Patient reports feels very weak this morning. No evidence of psychotic symptoms. MENTAL STATUS EXAMINATION: The patient is dressed in [facility]. The patient is cooperative during the examination. She has poor eye contact. Mood is depressed and anxious. Affect is restricted. Patient has psychomotor retardation. No evidence of psychotic symptoms. No auditory or visual hallucinations or delusions. Memory, attention and concentration are fair. The patient is able to contract for safety during the interview. Insight and judgment is limited. ASSESSMENT: 1. Depression. 2. Suicidal ideation. PLAN: 1. Continue Lexapro 20 mg by mouth every morning. 2. Continue BuSpar 10 mg by mouth three times a day. 3. Continue trazodone as needed for insomnia. 4. Continue medication management, individual and group therapy.
[2016-09-18 18:00] VITALS: BP 116/69
[2016-09-18] MEDS: ATORVASTATIN 20 MG TAB PO SCH (22:03)
[2016-09-18] MEDS: oxyBUTYnin *DITROPAN XL* 5 MG TABCR PO SCH (22:04)
[2016-09-18] MEDS: MONTELUKAST 10 MG TAB PO SCH (22:04)
[2016-09-18] MEDS: traZODone 50 MG TAB PO PRN (22:07)
[2016-09-18] MEDS: ACETAMINOPHEN TAB 650MG DOSE (2X325MG) PO PRN (22:10)
[2016-09-19 06:28] VITALS: BP 139/76
[2016-09-19] MEDS: CETIRIZINE (ZyrTEC) 10 MG TAB PO SCH (08:51)
[2016-09-19] MEDS: FOLIC ACID 1 MG TAB PO SCH (08:51)
[2016-09-19] MEDS: NICOTINE 21MG/24HR 1 EA TRANSDERMAL TD SCH (08:51)
[2016-09-19] MEDS: CYANOCOBALAMIN 500 MCG TAB PO SCH (08:51)
[2016-09-19] MEDS: ESCITALOPRAM OXALATE 10 MG TAB (LEXAPRO) PO SCH (08:51)
[2016-09-19] MEDS: levETIRAcetam 250MG TABLET (KEPPRA) PO SCH ×3 (08:51→21:59)
[2016-09-19] MEDS: busPIRone 10 MG TAB PO SCH ×3 (08:51→21:58)
[2016-09-19] MEDS: OMEPRAZOLE 20 MG CAP PO SCH (08:51)
[2016-09-19] MEDS ORDERED: hydrOXYzine 50 MG TAB PO PRN (14:30)
--- NOTE | 2016-09-19 15:29 | IPN ---
DATE: 09/19/2016 A 55-year-old female with a history of depression and seizure disorder, admitted due to suicidal ideation and auditory hallucinations. SUBJECTIVE: "I'm not doing well." OBJECTIVE: Patient continues with tendency toward somatization. Patient is reporting that she cannot go to group therapy, because "I'm getting confused and dizzy." Patient has tendency to answer all the symptoms with positive reports. No evidence of psychotic features. Patient has not complained again of auditory hallucinations. MENTAL STATUS EXAMINATION: Patient is dressed in [facility]. Patient is cooperative during exam. Has poor eye contact. Mood is reported as depressed and anxious. Affect is restricted. Patient reports low energy and psychomotor retardation. No evidence of psychotic symptoms. Patient is able to contract for safety during the interview. Insight and judgment are limited. ASSESSMENT: 1. Depression. 2. Suicidal ideation. PLAN: 1. Continue with Lexapro 20 mg by mouth every morning. 2. Continue with BuSpar 10 mg by mouth three times a day. 3. Start Vistaril 50 mg by mouth every 6 hours as needed for anxiety. 4. Continue with trazodone as needed for insomnia. 5. Continue medication management, individual and group therapy.
[2016-09-19 18:12] VITALS: BP 110/60
[2016-09-19] MEDS: MONTELUKAST 10 MG TAB PO SCH (21:58)
[2016-09-19] MEDS: oxyBUTYnin *DITROPAN XL* 5 MG TABCR PO SCH (21:58)
[2016-09-19] MEDS: ATORVASTATIN 20 MG TAB PO SCH (21:58)
[2016-09-20 07:09] VITALS: BP 153/78
[2016-09-20] MEDS: NICOTINE 21MG/24HR 1 EA TRANSDERMAL TD SCH (09:00)
[2016-09-20] MEDS: CETIRIZINE (ZyrTEC) 10 MG TAB PO SCH (09:02)
[2016-09-20] MEDS: CYANOCOBALAMIN 500 MCG TAB PO SCH (09:02)
[2016-09-20] MEDS: busPIRone 10 MG TAB PO SCH ×3 (09:03→20:51)
[2016-09-20] MEDS: levETIRAcetam 250MG TABLET (KEPPRA) PO SCH ×3 (09:03→20:57)
[2016-09-20] MEDS: ESCITALOPRAM OXALATE 10 MG TAB (LEXAPRO) PO SCH (09:03)
[2016-09-20] MEDS: FOLIC ACID 1 MG TAB PO SCH (09:03)
[2016-09-20] MEDS: OMEPRAZOLE 20 MG CAP PO SCH (09:03)
[2016-09-20 09:19] VITALS: BP 135/70
[2016-09-20 09:50] LABS: ALBUMIN 4.1 GM/DL (3.2-5.2); ALBUMIN/GLOBULIN RATIO 1.14 (1.00-1.93); ALKALINE PHOSPHATASE 133 U/L (45-117); ALT/SGPT 20 U/L (12-78); ANION GAP 4 MEQ/L (8-16); AST/SGOT 10 U/L (15-37); BILIRUBIN,TOTAL 0.3 MG/DL (0.2-1.0); BLOOD UREA NITROGEN 9 MG/DL (7-18); CALCIUM LEVEL 9.7 MG/DL (8.5-10.1); CARBON DIOXIDE LEVEL 33 MEQ/L (21-32); CHLORIDE LEVEL 102 MEQ/L (98-107); CREATININE FOR GFR 0.81 MG/DL (0.55-1.02); GLOMERULAR FILTRATION RATE > 60.0 (>51); GLUCOSE, FASTING 76 MG/DL (70-105); POTASSIUM SERUM 4.4 MEQ/L (3.5-5.1); SODIUM LEVEL 139 MEQ/L (136-145); TOTAL PROTEIN 7.7 GM/DL (6.4-8.2)
--- NOTE | 2016-09-20 17:17 | IPN ---
DATE: 09/20/2016 A 55-year-old female with history of depression and seizure disorder, admitted due to suicidal ideation and auditory hallucinations. SUBJECTIVE: "I don't feel well at all." OBJECTIVE: No major changes. The patient continues somatizing and responding positive for any single symptom being from the medical point of view or psychiatric point of view. The patient is stating, "I cannot go back home." There is no evidence of psychotic symptoms. No auditory or visual hallucinations. No suicidal or homicidal ideations. MENTAL STATUS EXAMINATION: Patient dressed in [facility]. The patient is partially cooperative, since she is lying in bed with poor eye contact, poor speech, answering positively to all the symptoms being medical or psychiatric, and reporting feeling weak with psychomotor retardation. The patient is able to contract for safety. Insight and judgment are limited. ASSESSMENT: 1. Depression. 2. Suicidal ideation. PLAN: 1. Continue with Lexapro 20 mg by mouth every morning. 2. Continue with BuSpar 10 mg by mouth three times a day. 3. Continue trazodone as needed for insomnia. 4. Continue medication management, individual and group therapy.
[2016-09-20 18:00] VITALS: BP 124/64
[2016-09-20] MEDS: ATORVASTATIN 20 MG TAB PO SCH (20:51)
[2016-09-20] MEDS: MONTELUKAST 10 MG TAB PO SCH (20:51)
[2016-09-20] MEDS: oxyBUTYnin *DITROPAN XL* 5 MG TABCR PO SCH (20:56)
[2016-09-20] MEDS: ACETAMINOPHEN TAB 650MG DOSE (2X325MG) PO PRN (21:00)
[2016-09-21 06:47] VITALS: BP 133/78
[2016-09-21] MEDS: NICOTINE 21MG/24HR 1 EA TRANSDERMAL TD SCH (09:00)
[2016-09-21] MEDS: busPIRone 10 MG TAB PO SCH ×3 (09:17→20:37)
[2016-09-21] MEDS: CYANOCOBALAMIN 500 MCG TAB PO SCH (09:17)
[2016-09-21] MEDS: FOLIC ACID 1 MG TAB PO SCH (09:18)
[2016-09-21] MEDS: CETIRIZINE (ZyrTEC) 10 MG TAB PO SCH (09:18)
[2016-09-21] MEDS: OMEPRAZOLE 20 MG CAP PO SCH (09:18)
[2016-09-21] MEDS: ESCITALOPRAM OXALATE 10 MG TAB (LEXAPRO) PO SCH (09:18)
[2016-09-21] MEDS: levETIRAcetam 250MG TABLET (KEPPRA) PO SCH ×3 (09:26→20:39)
[2016-09-21 18:00] VITALS: BP 141/78
[2016-09-21] MEDS: ATORVASTATIN 20 MG TAB PO SCH (20:36)
[2016-09-21] MEDS: MONTELUKAST 10 MG TAB PO SCH (20:36)
[2016-09-21] MEDS: traZODone 50 MG TAB PO PRN (20:36)
[2016-09-21] MEDS: ACETAMINOPHEN TAB 650MG DOSE (2X325MG) PO PRN (20:37)
[2016-09-21] MEDS: oxyBUTYnin *DITROPAN XL* 5 MG TABCR PO SCH (20:37)
[2016-09-22 06:30] VITALS: BP 135/74
[2016-09-22] MEDS: FOLIC ACID 1 MG TAB PO SCH (08:30)
[2016-09-22] MEDS: levETIRAcetam 250MG TABLET (KEPPRA) PO SCH ×3 (08:30→21:09)
[2016-09-22] MEDS: CYANOCOBALAMIN 500 MCG TAB PO SCH (08:30)
[2016-09-22] MEDS: busPIRone 10 MG TAB PO SCH ×3 (08:30→21:08)
[2016-09-22] MEDS: ESCITALOPRAM OXALATE 10 MG TAB (LEXAPRO) PO SCH (08:30)
[2016-09-22] MEDS: OMEPRAZOLE 20 MG CAP PO SCH (08:30)
[2016-09-22] MEDS: CETIRIZINE (ZyrTEC) 10 MG TAB PO SCH (08:30)
[2016-09-22] MEDS: NICOTINE 21MG/24HR 1 EA TRANSDERMAL TD SCH (08:31)
[2016-09-22] MEDS: ACETAMINOPHEN TAB 650MG DOSE (2X325MG) PO PRN ×2 (08:31→16:30)
[2016-09-22 18:00] VITALS: BP 129/65
[2016-09-22] MEDS: MONTELUKAST 10 MG TAB PO SCH (21:08)
[2016-09-22] MEDS: traZODone 50 MG TAB PO PRN (21:08)
[2016-09-22] MEDS: ATORVASTATIN 20 MG TAB PO SCH (21:08)
[2016-09-22] MEDS: ALBUTEROL 90 MCG/ACT 8GM HFA INHALER INH PRN (21:09)
[2016-09-22] MEDS: oxyBUTYnin *DITROPAN XL* 5 MG TABCR PO SCH (21:20)
[2016-09-23 06:29] VITALS: BP 122/64
[2016-09-23] MEDS: busPIRone 10 MG TAB PO SCH (08:38)
[2016-09-23] MEDS: OMEPRAZOLE 20 MG CAP PO SCH (08:38)
[2016-09-23] MEDS: FOLIC ACID 1 MG TAB PO SCH (08:38)
[2016-09-23] MEDS: ESCITALOPRAM OXALATE 10 MG TAB (LEXAPRO) PO SCH (08:38)
[2016-09-23] MEDS: levETIRAcetam 250MG TABLET (KEPPRA) PO SCH (08:38)
[2016-09-23] MEDS: CYANOCOBALAMIN 500 MCG TAB PO SCH (08:39)
[2016-09-23] MEDS: CETIRIZINE (ZyrTEC) 10 MG TAB PO SCH (08:39)
[2016-09-23] MEDS: NICOTINE 21MG/24HR 1 EA TRANSDERMAL TD SCH (08:39)
--- NOTE | 2016-09-24 00:09 | MHDS ---
DATE OF ADMISSION: 09/14/2016 DATE OF DISCHARGE: 09/23/2016 LEGAL STATUS AT ADMISSION: 9.39 legal status. HISTORY OF PRESENT ILLNESS: The following information is according to the initial evaluation of Dr. Angeles, her progress note, and my own progress note. On 09/15/2016, Dr. Angeles wrote the patient today complains "I can't focus and I can't function." Patient was just discharged from the hospital on 09/11/2016. Apparently, her sister went to see her and the patient was talking about voices telling her "stay away." She could not explain further what the voices were about. Today, she tells me that when she was discharged home she smelled gas in her apartment, she called the landlord. She says that she is not able to function. She cannot be around people. She cannot eat. She cannot take a bath. She keeps hearing the voice in her head telling her "I want to ." I think that this is more her own thinking than actually hallucinations. She complains that her body hurts. When I asked her to elaborate, she said her legs and arms hurt. She says that she cannot focus on anything. She cannot sleep because of the fact that she keeps thinking that she wants to . She says that she has been feeling depressed and she is feeling very anxious. Upon admission to the unit, she told staff that she does not feel that she can live on her own anymore and she wants to be referred to [facility] As I said, patient was just discharged, she was admitted on 09/05/2016 to 09/11/2016 in our unit. She was admitted for depression and suicidal ideation. LABORATORY DATA AT ADMISSION: Her CBC was unremarkable. CMP showed a sodium of 128, rest of the CMP was unremarkable except alkaline phosphatase of 146 and total protein of 8.5. On 09/20/2016, her sodium was within normal limits as was the rest of the CMP except alkaline phosphatase of 133. Urine drug screen was negative. Blood alcohol level was negative. HOSPITAL COURSE: After the evaluation by Dr. Angeles, she was restarted on her previous to admission psychiatric medications: BuSpar 10 mg by mouth three times a day, Lexapro 20 mg by mouth every morning, and trazodone 50 mg by mouth nightly as needed for insomnia. With these medications, patient was stabilized. She had no complications. She tolerated well the medications. After observation in our unit, we could not observe any psychotic symptoms. Actually, she stopped talking about the voices after 24 hours of being in our unit. Patient does not appear to be paranoid or reacting to any internal stimuli. Patient had to be reminded that she had to go for her psychotherapeutic activities. She had tendency to remain in her room and in bed. Patient was stating that she felt uncomfortable around people. Daily interactions with the patient showed that the patient is highly anxious about her living situation and she wanted to make sure that we understand that she is not going to be able to live on her own any longer. The symptoms are not compatible with major depressive disorder, although she feels depressed and anxious, especially because of her social situation. She was talking about her difficulties of having to walk for shopping or laundry and "my legs hurt." She also was talking about liking her independence, however also talking about her daily difficulties, having to do everything on her own with little support. She was told that she was going to be discharged on 09/23/2016. Early in the morning, she stated that she was not ready for discharge. She was called to team for an extended period of time. The team wanted to get information about why she felt unready for discharge. Again, the concern was the above stated, that she cannot live on her own. The team told the patient that a referral for [facility] has already been made and that she will have to wait for a bed to become available. Also, a referral for case management and a call to the pharmacy to clarify her medications, since she is getting the medications in the mail and she said that she was getting "confused." However, she gets the medication in individual single packets in which she has the medication prepared three times a day and she only has to take them out three times a day. During the meeting, we offered the possibility to transfer her to a long-term facility, but she declined. Again, at the moment of discharge, patient does not display any psychotic symptoms, no auditory or visual delusions or hallucinations. She stated that she felt anxious and depressed, but she has no suicidal ideation. At this point, patient does not meet criteria for inpatient psychiatric hospitalization. MEDICATIONS AT DISCHARGE: - trazodone 50 mg by mouth nightly as needed for insomnia - BuSpar 10 mg by mouth three times a day - Lexapro 20 mg by mouth every morning MENTAL STATUS EXAMINATION AT DISCHARGE: Patient is dressed in [facility]. Patient is cooperative. Her speech is soft. Has fair eye contact. Mood is slightly anxious and depressed as stated above. Affect is appropriate and congruent with mood. Patient is oriented to time, place, person, and situation. Maintains attention and concentration correctly. Instant recall, recent, and remote memory are intact. Thought processes are coherent, logical, and goal-directed. Patient does not have auditory or visual hallucinations. Patient does not have paranoid, persecutory, somatic, grandiose, or religions delusions. Patient denies suicidal or homicidal ideation. Judgment and insight are fair. DIAGNOSES: AXIS I: Adjustment disorder with depressed and anxious mood. AXIS II: Deferred. AXIS III: Seizure disorder and asthma. CONDITION AT DISCHARGE: Stable. No suicidal or homicidal ideation, no auditory or visual hallucinations, no delusions. INSTRUCTIONS TO THE PATIENT: Patient is to continue taking her medications as prescribed and followup appointments. She is advised to maintain absolute sobriety from drugs and alcohol. Patient has scheduled appointments for medication management, individual psychotherapy, and primary care physician.
== END 2016-09-23 14:40 | disposition home or self-care (01) | DRG 755 ==
LOC: EDBD 10:47 → M ED 12:09 → M ED INP 14:48 → M PSY 16:39
PROVIDERS: ADMIT Psychiatry & Neurology Psychiatry; ATTEND Psychiatry & Neurology Psychiatry
DX: F43.23 Adjustment disorder with mixed anxiety and depressed mood (principal); G40.409 Other generalized epilepsy and epileptic syndromes, not intractable, without status epilepticus; J45.909 Unspecified asthma, uncomplicated; Z81.8 Family history of other mental and behavioral disorders; K21.9 Gastro-esophageal reflux disease without esophagitis; E78.5 Hyperlipidemia, unspecified; F41.9 Anxiety disorder, unspecified; E55.9 Vitamin D deficiency, unspecified; G47.00 Insomnia, unspecified; E87.1 Hypo-osmolality and hyponatremia; N31.9 Neuromuscular dysfunction of bladder, unspecified; K44.9 Diaphragmatic hernia without obstruction or gangrene; F17.210 Nicotine dependence, cigarettes, uncomplicated; Z89.421 Acquired absence of other right toe(s); Z89.422 Acquired absence of other left toe(s); Z79.899 Other long term (current) drug therapy

== ENCOUNTER 2016-09-29 15:43 | Emergency (ER) | payer OTHER ==
[~2016-09-29] VITALS: Ht 165.1 cm; Wt 104.0 kg
[2016-09-29 17:56] LABS: MEAN CORPUSCULAR HEMOGLOBIN 30.1 pg (27.0-33.0); MEAN CORPUSCULAR HGB CONC 34.9 g/dl (32.0-36.5); MEAN CORPUSCULAR VOLUME 86.4 fl (80.0-96.0); RED CELL DISTRIBUTION WIDTH 12.7 % (11.5-14.5); WHITE BLOOD COUNT 6.4 K/mm3 (4.0-10.0)
[2016-09-29 18:14] LABS: CONTROL LINE HCG INT CTR LINE PRESENT
[2016-09-29 18:18] LABS: METHADONE URINE NEGATIVE (NEGATIVE)
[2016-09-29 18:29] LABS: ALBUMIN 4.4 GM/DL (3.2-5.2); ALBUMIN/GLOBULIN RATIO 1.29 (1.00-1.93); ALKALINE PHOSPHATASE 143 U/L (45-117); ALT/SGPT 20 U/L (12-78); ANION GAP 6 MEQ/L (8-16); AST/SGOT 12 U/L (15-37); BILIRUBIN,DIRECT 0.1 MG/DL (0.0-0.2); BILIRUBIN,TOTAL 0.4 MG/DL (0.2-1.0); BLOOD UREA NITROGEN 7 MG/DL (7-18); CALCIUM LEVEL 9.1 MG/DL (8.5-10.1); CARBON DIOXIDE LEVEL 29 MEQ/L (21-32); CHLORIDE LEVEL 98 MEQ/L (98-107); CREATININE FOR GFR 0.85 MG/DL (0.55-1.02); GLOMERULAR FILTRATION RATE > 60.0 (>51); GLUCOSE, FASTING 96 MG/DL (70-105); SODIUM LEVEL 133 MEQ/L (136-145); TOTAL PROTEIN 7.8 GM/DL (6.4-8.2)
[2016-09-29] MEDS ORDERED: levETIRAcetam 250MG TABLET (KEPPRA) PO ONE (21:30)
[2016-09-29] MEDS ORDERED: oxyBUTYnin *DITROPAN XL* 5 MG TABCR PO ONE (21:30)
[2016-09-29] MEDS ORDERED: ATORVASTATIN 20 MG TAB PO ONE (21:30)
[2016-09-29] MEDS ORDERED: MONTELUKAST 10 MG TAB PO ONE (21:30)
[2016-09-29] MEDS ORDERED: busPIRone 10 MG TAB PO ONE (21:30)
[2016-09-30] MEDS ORDERED: ONDANSETRON 4 MG ORAL DISINTEGRATING TAB (S0181) PO ONE (06:15)
[2016-09-30] MEDS ORDERED: OMEPRAZOLE 20 MG CAP PO ONE (06:15)
[2016-09-30 08:17] VITALS: BP 148/78
--- NOTE | 2016-10-01 09:07 | ECGEPIP ---
Stationary ECG Study [facility] - ED Test Date: 2016-09-29 Pat Name: NAVEEN SCOTT Department: Room: - Gender: F [employer] Apprentice: mode : 1960 Requested By: STUART Murray Order Number: [id number] Reading MD: Yaz Hagen Measurements Intervals [place] Rate: 61 P: 50 DE: 195 QRS: 52 QRSD: 149 T: 17 QT: 415 QTc: 418 Interpretive Statements SINUS RHYTHM RIGHT BUNDLE BRANCH BLOCK DECREASED RATE 09/01/16 Electronically Signed On 10-01-2016 9:07:12 EDT by Yaz Hagen
== END 2016-09-30 08:27 ==
LOC: M ED 16:41
DX: R45.851 Suicidal ideations (principal); F32.9 Major depressive disorder, single episode, unspecified; F41.9 Anxiety disorder, unspecified; I10 Essential (primary) hypertension; E78.00 Pure hypercholesterolemia, unspecified; M54.30 Sciatica, unspecified side; Z90.79 Acquired absence of other genital organ(s); Z90.89 Acquired absence of other organs; Z79.899 Other long term (current) drug therapy

== ENCOUNTER 2016-12-25 11:20 | Emergency (ER) | payer OTHER, SELFPAY ==
[~2016-12-25] VITALS: Ht 167.6 cm; Wt 88.6 kg
[~2016-12-25 11:20] MED LIST changes: -ARIP1TAB; -ATIV1TAB10; -LEXA1TAB2; -RISP2TAB3
[2016-12-25] MEDS ORDERED: LEXA1TAB2 (11:35)
[2016-12-25] MEDS ORDERED: ATIV1TAB10 (11:35)
[2016-12-25] MEDS ORDERED: RISP2TAB3 (11:35)
[2016-12-25] MEDS ORDERED: ARIP1TAB (11:35)
[2016-12-25] MEDS ORDERED: levETIRAcetam 250MG TABLET (KEPPRA) PO ONE (12:30)
[2016-12-25 13:07] LABS: BASO % 0.1 % (0.0-1.0); EOS % 0.1 % (0.0-3.0); LARGE UNSTAINED CELL # 0.1 K/mm3 (0.0-0.4); LARGE UNSTAINED CELL % 1.8 % (0.0-4.0); LYMPH # 2.2 K/mm3 (1.5-4.5); LYMPH % 32.6 % (24.0-44.0); MEAN CORPUSCULAR HEMOGLOBIN 29.6 pg (27.0-33.0); MEAN CORPUSCULAR VOLUME 87.3 fl (80.0-96.0); MONO # 0.4 K/mm3 (0.0-0.8); MONO % 6.1 % (0.0-5.0); NEUTROPHILS % 59.4 % (36.0-66.0); PLATELET COUNT, AUTOMATED 346 k/mm3 (150-450); RED CELL DISTRIBUTION WIDTH 12.9 % (11.5-14.5); WHITE BLOOD COUNT 6.8 K/mm3 (4.0-10.0)
[2016-12-25 13:22] LABS: ALBUMIN 3.9 GM/DL (3.2-5.2); ALBUMIN/GLOBULIN RATIO 1.11 (1.00-1.93); ALKALINE PHOSPHATASE 151 U/L (45-117); ALT/SGPT 23 U/L (12-78); ANION GAP 7 MEQ/L (8-16); AST/SGOT 16 U/L (15-37); BILIRUBIN,DIRECT < 0.1 MG/DL (0.0-0.2); BILIRUBIN,TOTAL 0.2 MG/DL (0.2-1.0); BLOOD UREA NITROGEN 16 MG/DL (7-18); CALCIUM LEVEL 9.3 MG/DL (8.5-10.1); CARBON DIOXIDE LEVEL 29 MEQ/L (21-32); CHLORIDE LEVEL 106 MEQ/L (98-107); CREATININE FOR GFR 0.73 MG/DL (0.55-1.02); GLOMERULAR FILTRATION RATE > 60.0 (>51); GLUCOSE, FASTING 82 MG/DL (70-105); SODIUM LEVEL 142 MEQ/L (136-145); TOTAL PROTEIN 7.4 GM/DL (6.4-8.2)
[2016-12-25 13:25] LABS: METHADONE URINE NEGATIVE (NEGATIVE)
[2016-12-25] MEDS ORDERED: KEPP250T5 PO (13:38)
[2016-12-25 13:49] VITALS: BP 133/78
== END 2016-12-25 14:01 | disposition home or self-care (01) ==
LOC: M ED 11:20
DX: Z76.0 Encounter for issue of repeat prescription (principal); G40.919 Epilepsy, unspecified, intractable, without status epilepticus; I10 Essential (primary) hypertension; J45.909 Unspecified asthma, uncomplicated; E78.00 Pure hypercholesterolemia, unspecified; F41.9 Anxiety disorder, unspecified; F33.9 Major depressive disorder, recurrent, unspecified; M54.30 Sciatica, unspecified side; F17.210 Nicotine dependence, cigarettes, uncomplicated; Z79.899 Other long term (current) drug therapy; Z79.51 Long term (current) use of inhaled steroids; Z98.890 Other specified postprocedural states

== ENCOUNTER → 2016-12-25 | Outpatient (CLI) | payer OTHER, SELFPAY ==
[2016-12-10 10:59] LABS: BASO % 0.3 % (0.0-1.0); EOS % 0.1 % (0.0-3.0); LARGE UNSTAINED CELL # 0.1 K/mm3 (0.0-0.4); LARGE UNSTAINED CELL % 1.4 % (0.0-4.0); LYMPH # 2.1 K/mm3 (1.5-4.5); LYMPH % 41.1 % (24.0-44.0); MEAN CORPUSCULAR HEMOGLOBIN 29.3 pg (27.0-33.0); MEAN CORPUSCULAR HGB CONC 34.1 g/dl (32.0-36.5); MEAN CORPUSCULAR VOLUME 86.1 fl (80.0-96.0); MONO # 0.4 K/mm3 (0.0-0.8); MONO % 7.5 % (0.0-5.0); NEUTROPHILS # 2.4 K/mm3 (1.8-7.7); NEUTROPHILS % 49.6 % (36.0-66.0); PLATELET COUNT, AUTOMATED 302 k/mm3 (150-450); WHITE BLOOD COUNT 4.9 K/mm3 (4.0-10.0)
[2016-12-10 11:20] LABS: FOLATE > 24.0 NG/ML; VITAMIN B12 LEVEL 783 PG/ML
[2016-12-10 11:31] LABS: ALBUMIN 3.8 GM/DL (3.2-5.2); ALBUMIN/GLOBULIN RATIO 1.03 (1.00-1.93); ALKALINE PHOSPHATASE 132 U/L (45-117); ALT/SGPT 25 U/L (12-78); ANION GAP 9 MEQ/L (8-16); AST/SGOT 22 U/L (15-37); BILIRUBIN,TOTAL 0.4 MG/DL (0.2-1.0); BLOOD UREA NITROGEN 9 MG/DL (7-18); CALCIUM LEVEL 8.8 MG/DL (8.5-10.1); CARBON DIOXIDE LEVEL 24 MEQ/L (21-32); CHLORIDE LEVEL 102 MEQ/L (98-107); CHOLESTEROL LEVEL 159 MG/DL (<200); CREATININE FOR GFR 0.86 MG/DL (0.55-1.02); FREE T4 0.88 NG/DL (0.76-1.46); GLOMERULAR FILTRATION RATE > 60.0 (>51); GLUCOSE, FASTING 79 MG/DL (70-105); POTASSIUM SERUM 4.6 MEQ/L (3.5-5.1); SODIUM LEVEL 135 MEQ/L (136-145); TOTAL PROTEIN 7.5 GM/DL (6.4-8.2); TRIGLYCERIDES LEVEL 107 MG/DL (<150)
[2016-12-12 00:06] LABS: FREE KAPPA LIGHT CHAINS SERUM 22.1 mg/L (3.3-19.4); FREE LAMBDA LIGHT CHAINS SERUM 21.2 mg/L (5.7-26.3); KAPPA/LAMBDA RATIO SERUM 1.04 (0.26-1.65)
[~2016-12-25] MED LIST changes: +ARIP1TAB; +ATIV1TAB10; +CIPR-249 PO; -CIPR500T89 PO; +FLUD0.1T PO; -FLUD1TA PO; -FOLI1TAB2 PO; +FOLI1TAB4 PO; -KEPP1000 PO; +KEPP10002 PO; +LEXA1TAB2; -OXYB5TA PO; +OXYB5TAB10 PO; -PROA1AER INH; +PROAAER10 INH; +RISP2TAB3; +TRAZ50TA11 PO; -TRAZ50TA4 PO
--- NOTE | 2016-12-25 10:59 | REPMRS ---
Patient History The patient states she has not had a clinical breast exam in over a year. Family history of breast cancer in sister at age 25 and colorectal cancer in mother at age 77. Digital Mammo Screening Bilat: December 25, 2016 - Exam #: [id number] Bilateral CC and MLO view(s) were taken. Technologist: Cris Staples Technologist Prior study comparison: December 11, 2015, bilateral digital mammo screening bilat performed at [facility]. October 31, 2014, digital bilateral screening mammo, performed at [facility]. August 25, 2013, bilateral digital mammo screening bilat performed at [facility]. FINDINGS: The breast tissue is heterogeneously dense. This may lower the sensitivity of mammography. There is a needle biopsy marker clip in the right breast. There is a moderate amount of heterogeneously dense fibroglandular tissue which is fairly symmetric. There is no interval development of dominant mass, architectural distortion, or clustered microcalcification typical of malignancy. There has been no change in the appearance of the mammogram from the prior studies. ASSESSMENT: BI-RADS/ACR category 2 mammogram. Benign finding(s). Recommendation Routine screening mammogram of both breasts in 1 year (for women over age 40). This mammogram was interpreted with the aid of an FDA-approved computer-aided dectection system. Electronically Signed By: Yunior Sanchez MD 12/25/16 0717
== END ==
LOC: M LAB 10:14
PROVIDERS: ATTEND Family Medicine
DX: Z12.31 Encounter for screening mammogram for malignant neoplasm of breast (principal); Z80.3 Family history of malignant neoplasm of breast; Z80.0 Family history of malignant neoplasm of digestive organs; E78.5 Hyperlipidemia, unspecified; K21.9 Gastro-esophageal reflux disease without esophagitis; R56.9 Unspecified convulsions; E55.9 Vitamin D deficiency, unspecified
CPT/HCPCS: 36415; 80053; 80061; 82306; 82550; 82607; 82746; 83883; 84439; 84443; 85025; G0202

== ENCOUNTER 2017-03-17 05:32 | Inpatient (IN) | payer OTHER ==
--- NOTE | 2017-03-13 18:52 | HPE ---
DATE OF SCHEDULED ADMISSION: 03/17/2017 CHIEF COMPLAINT: Right foot pain. HISTORY OF THE PRESENT ILLNESS: Amberly Moyer is a 56-year-old female who has suffered with pain in her foot for many years due to significant bunion and hammertoe deformity. The patient has failed conservative management, including use of wide toe box shoes and toe spacers. She has elected to undergo surgical fixation of her forefoot. The risks and benefits of the surgery have been discussed with the patient and informed consent was obtained in the office. PAST MEDICAL HISTORY: 1. Epilepsy. 2. Asthma. 3. Gastroesophageal reflux disease (GERD). 4. Hypertension. 5. Hyperlipidemia. 6. Secondary adrenal insufficiency. 7. Hyponatremia. 8. Depression. HOME MEDICATIONS: Aspirin, Colace, gabapentin, ibuprofen, vitamin D. PAST SURGICAL HISTORY: Bilateral 4th toe amputation. SOCIAL HISTORY: The patient does not work as she is on [employer]. She does not drink alcohol. She has not smoked cigarettes since November. PHYSICAL EXAMINATION: General: Well appearing, alert and oriented, in no acute distress. Pulmonary: Regular nonlabored breathing. Cardiovascular: Regular dorsalis pedis pulse. Musculoskeletal: On the right foot, there is a significant hallux valgus deformity and 2nd and 3rd hammertoes. There is pain in the first MTP joint. Neurovascularly intact distally. IMPRESSION: Right hallux valgus deformity with 2nd and 3rd hammertoes. PLAN: We will proceed to the operating room for a first MTP arthrodesis and correction of the 2nd and 3rd hammertoes. We will use calcaneal bone graft. The patient will be non-weightbearing for 6 weeks. She will stay the night in the hospital as she will need to go to a rehabilitation facility after the surgery. She has been medically cleared by her primary care physician.
[~2017-03-17] VITALS: Ht 170.2 cm; Wt 41.3 kg
[2017-03-17] VITALS (7 sets, daily range): BP systolic 130–140; BP diastolic 60–91
[~2017-03-17 05:32] MED LIST changes: +ARIP1TAB; +ATIV1TAB10; +ATIV1TAB10 PO; +LEXA1TAB2; +MELO7.5T7 PO; +RISP2TAB3; +VITA-113 PO
[2017-03-17] MEDS ORDERED: LR 1,000 ML IV ONE (05:45)
[2017-03-17] MEDS ORDERED: LIDOCAINE 1% MDV 20ML VIAL SQ PRN (05:45)
[2017-03-17] MEDS ORDERED: fentaNYL 100 MCG/2 ML INJECTION (J3010) As Ordered ONE ×2 (06:50→07:16)
[2017-03-17] MEDS ORDERED: MIDAZOLAM INJ 2 MG/2 ML VIAL (J2250) As Ordered ONE ×2 (06:50→07:16)
[2017-03-17] MEDS ORDERED: PROPOFOL 200 MG/20 ML VIAL As Ordered ONE (07:16)
[2017-03-17] MEDS ORDERED: ROCURONIUM BROMIDE 50 MG/5 ML VIAL As Ordered ONE (07:16)
[2017-03-17] MEDS ORDERED: LIDOCAINE 2% INJ 100 MG/5 ML SDV (FOR ANES.) As Ordered ONE (07:16)
[2017-03-17] MEDS ORDERED: ePHEDrine SULFATE 25 MG/5 ML(5MG/ML) SYRINGE As Ordered ONE ×2 (08:09→11:06)
[2017-03-17] MEDS ORDERED: dexameTHASONE 4 MG/ML 1ML VIAL (J1100) As Ordered ONE (08:13)
[2017-03-17] MEDS ORDERED: SUCCINYLCHOLINE 100 MG/5 ML SYRINGE (J0330) As Ordered ONE (08:13)
[2017-03-17] MEDS ORDERED: MIDAZOLAM INJ 2 MG/2 ML VIAL (J2250) IV PRN (08:15)
[2017-03-17] MEDS ORDERED: fentaNYL 100 MCG/2 ML INJECTION (J3010) IV PRN ×2 (08:15→13:15)
[2017-03-17] MEDS ORDERED: NEOSTIGMINE 10 MG/10 ML VIAL (J2710) As Ordered ONE (09:09)
[2017-03-17] MEDS ORDERED: HYDROmorphone HCL 2 MG/ML 1ML VIAL (J1170) As Ordered ONE (09:09)
[2017-03-17] MEDS ORDERED: ONDANSETRON 4MG/2ML VIAL (J2405) As Ordered ONE (09:09)
[2017-03-17] MEDS ORDERED: GLYCOPYRROLATE INJ 0.2 MG/ML 2 ML VIAL As Ordered ONE (09:09)
[2017-03-17] MEDS ORDERED: PHENYLephrine HCL 500 MCG/5 ML (100MCG/ML) SYRINGE (J2370) As Ordered ONE (11:54)
[2017-03-17] MEDS ORDERED: ceFAZolin 2 GM/D5W 50 ML IV BAG (J0690 PER 500MG) As Ordered ONE (12:08)
[2017-03-17] MEDS ORDERED: FLEET ENEMA PR PRN (13:15)
[2017-03-17] MEDS ORDERED: LR 1,000 ML IV SCH (13:15)
[2017-03-17] MEDS ORDERED: HYDROmorphone HCL 1 MG/ML SYRINGE (J1170) IV PRN (13:15)
[2017-03-17] MEDS ORDERED: PERCOCET 5MG/325MG TAB PO PRN (13:15)
[2017-03-17] MEDS: LR 1,000 ML IV SCH (13:15)
[2017-03-17] MEDS ORDERED: ONDANSETRON 4MG/2ML VIAL (J2405) IV PRN (13:15)
--- NOTE | 2017-03-17 13:23 | REP ---
RIGHT FOOT COMPLETE: 03/17/2017. Clinical history: 10 images from C-arm fluoroscopy provided to Dr. Jeffery of the orthopedic division for a bunionectomy and fusions. Findings: Plate screw fixation for fusion of the MTP joint of the great toe with a lag screw across that MTP joint also noted. In addition there are K-wires in the second and third digits across both IP joints and a small screw in the distal head of the second metatarsal from osteotomy. The fourth digit appears to have been previously resected at the distal shaft of the fourth metatarsal. Fluoroscopy time: 1 minute 58 seconds. Signed by Alexandre Estrada MD 03/18/2017 07:45 P
[2017-03-17] MEDS ORDERED: oxyCODONE 5MG TAB PO PRN (13:30)
[2017-03-17] MEDS ORDERED: MORPHINE 2 MG/ML 1ML SYRINGE IV PRN (13:30)
[2017-03-17] MEDS ORDERED: ACETAMINOPHEN 500 MG TAB PO SCH (13:30)
[2017-03-17] MEDS ORDERED: ALBUTEROL 90 MCG/ACT 8GM HFA INHALER INH PRN (13:30)
[2017-03-17] MEDS: ACETAMINOPHEN 500 MG TAB PO SCH ×2 (14:58→22:24)
[2017-03-17] MEDS: oxyCODONE 5MG TAB PO PRN ×2 (15:01→22:27)
[2017-03-17] MEDS ORDERED: levETIRAcetam 250MG TABLET (KEPPRA) PO SCH (21:00)
[2017-03-17] MEDS: ASPIRIN 325 MG TAB PO SCH (22:24)
[2017-03-18] MEDS: LR 1,000 ML IV SCH (00:22)
[2017-03-18 02:00] VITALS: BP 132/67
[2017-03-18] MEDS: ACETAMINOPHEN 500 MG TAB PO SCH (05:59)
[2017-03-18 06:00] VITALS: BP 139/58
[2017-03-18 08:00] VITALS: BP 127/60
[2017-03-18] MEDS ORDERED: VITAMIN D 1,000 INTERNATIONAL UNITS TABLET PO SCH (09:00)
[2017-03-18] MEDS ORDERED: OMEPRAZOLE 20 MG CAP PO SCH (09:00)
[2017-03-18] MEDS ORDERED: INFLUENZA QUADRIVALENT PF VACCINE 0.5ML SYRINGE (90686) IM ONE (09:00)
[2017-03-18] MEDS ORDERED: FOLIC ACID 1 MG TAB PO SCH (09:00)
[2017-03-18] MEDS ORDERED: levETIRAcetam 250MG TABLET (KEPPRA) PO SCH (09:00)
[2017-03-18] MEDS ORDERED: ATORVASTATIN 20 MG TAB PO SCH (09:00)
[2017-03-18] MEDS ORDERED: CYANOCOBALAMIN 500 MCG TAB PO SCH (09:00)
[2017-03-18] MEDS ORDERED: levETIRAcetam 250MG TABLET (KEPPRA) PO ONE (09:45)
[2017-03-18] MEDS ORDERED: XARE10TA PO (09:50)
[2017-03-18] MEDS ORDERED: OXYC1SOL3 PO (09:50)
[2017-03-18] MEDS: ASPIRIN 325 MG TAB PO SCH (10:11)
--- NOTE | 2017-03-18 11:33 | RO ---
DATE OF PROCEDURE: 03/17/2017 PREOPERATIVE DIAGNOSES: 1. Right hallux valgus deformity with secondary arthritis at the first metatarsal phalangeal joint. 2. Second and third hammertoe deformities. 3. Second metatarsal overload. POSTOPERATIVE DIAGNOSES: 1. Right hallux valgus deformity with secondary arthritis at the first metatarsal phalangeal joint. 2. Second and third hammertoe deformities. 3. Second metatarsal overload. PROCEDURES: 1. Right first metatarsal phalangeal arthrodesis. 2. Right second and third hammertoe deformity correction with PIP fusion and extensor digitorum longus lengthening. 3. Right second metatarsal Jenny shortening osteotomy. 4. Calcaneal bone graft. SURGEON: Ashley Jeffery MD NAILHEAD SETTER: Patrica Galo PA-C ANESTHESIA: General endotracheal with popliteal block. IMPLANTS: Right medical first metatarsal phalangeal arthrodesis plate, 2.7 mm locking screws, 3.5 mm cortical and locking screws, 3.0 mm screw, Synthes 2.0 mm screw, 0.062 K-wire times two, 0.045 K-wire times two. SPECIMENS: None. ESTIMATED BLOOD LOSS: 50 mL. COMPLICATIONS: None. DISPOSITION: Stable to recovery. INDICATIONS: Amberly Moyer is a 56-year-old female who presented to my office with complaints of right foot pain. Her clinical exam and radiographs are consistent with a hallux valgus deformity with secondary arthritis of the first metatarsal phalangeal joint. In addition, the patient had tenderness mainly in the plantar aspect of the second metatarsal. She did not have significant tenderness into the third metatarsal. She had second and third hammertoe deformities as well. These were all causing problems with footwear. The patient reported in the clinic she had quit smoking since November. She had had extensive nonoperative management consisting of activity modification, shoe wear, orthotics and use of nonsteroidal antiinflammatories. Despite this, she remains persistently symptomatic. I had a thorough discussion with the patient regarding the risks and benefits of surgery as well as the expected time course of recovery. I explained to the patient that the risks of surgery include wound dehiscence, wound infection, deep infection, infection, which may require reoperation as well as the truck terminal manager use of IV antibiotics, as well as risk of injury into the surrounding blood vessels and nerves, and risks of developing a blood clot in the leg, which may progress to a pulmonary embolism. After a thorough discussion, the patient elected to proceed with surgery. PROCEDURE: I met the patient in the preoperative holding area. Once again, I explained the risks and benefits of surgery as well as the expected time course for recovery. The patient elected to proceed with surgery. Informed consent had been obtained at the office. I asked the patient to identify the correct operative site and I marked this with my initials. The patient was then taken to the operating room. After induction of anesthesia, the patient was placed in the supine position on the operating room table. All extremities were well padded. A nonsterile tourniquet was placed onto the operative thigh and the lower extremity was prepped and draped in a normal sterile fashion after a chlorhexidine scrub was performed over the foot. I performed a preoperative time out. In confirmed that the right lower extremity was the correct operative sight. I confirmed that the appropriate radiographs were on display and that all necessary equipment was available in the operating room. The patient had received preoperative antibiotics within 60 minutes of the time of the incision. I then exsanguinated the lower extremity using an esmarch bandage and inflated the tourniquet to 250 mmHg. A dorsal approach to the first metatarsal phalangeal joint was performed. Incision was made through the skin using a 15 blade. The subcutaneous tissue was carefully dissected using dissecting scissors. Small crossing vessels were coagulated. The extensor hallucis longus was retracted laterally. A dorsal capsulotomy was performed. The capsule was elevated both medially and laterally to expose the joint. The collaterals were released. Inspection of the joint demonstrated severe degenerative changes in the metatarsal head. The joint was prepared using a rongeur and a series of curettes. The wound was copiously irrigated, cleaned and dried. A 0.062 K-wire was used to create multiple drill holes in the metatarsal head and along the base of the proximal phalanx. These holes were then fenestrated with a small Lambotte osteotome. The first metatarsal phalangeal joint was then prepped with DBM putty. It was then pinned using a 0.062 K-wire. Intraoperative fluoroscopy confirmed appropriate alignment of the hallux. A flat plate was used to also confirm that the joint was positioned in the appropriate dorsiflexion and plantar flexion, with the interphalangeal joint being approximately half a fingerbreadth above the simulated ground. A Guidewire for the 3 mm headless compression screw was placed from the proximal phalanx into the distal aspect of the first metatarsal. Positioning of the Guidewire was confirmed with intraoperative fluoroscopy. A 3 mm headed compression screw was then advanced across the joint. It was fully seated. There was good fixation and compression at the arthrodesis site. A 5 degree plate was affixed dorsally onto the joint and pinned using olive wires. The positioning of the plate was confirmed with intraoperative fluoroscopy. Three 2.7 mm locking screws were placed distally. A 3.5 mm cortical screw was placed through the compression clot proximally. Two additional 3.5 mm locking screws were placed in the first metatarsal. Final radiographs were obtained demonstrating alignment of the hallux and apposition at the arthrodesis site. The wound was copiously irrigated, cleaned and dried. Next, an incision was made in the second webspace. Incision was made through the skin using a 15 blade. Subcutaneous tissue was carefully dissected. Crossing vessels were coagulated. The extensor digitorum longus of the second and third toes was identified. It was Z lengthened. This was later repaired using #2-0 Vicryl suture. A dorsal capsulotomy was performed at both the second and third metatarsal phalangeal joints. The periosteum was carefully elevated off the metatarsal neck medially and laterally over the second metatarsal taking care to preserve the collaterals. Hohmann's then were positioned on either side of the metatarsal and a Jenny osteotomy was performed using a 38 microsaggital saw blade. A small wedge of bone was removed from the osteotomy site in order to translate the head. In addition, the osteotomy was fixed using a 2.0 mm Synthes screw. The overlying wedge of bone was then carefully removed using a small rongeur. The wound was copiously irrigated, cleaned and dried. The extensor digitorum brevis was cut distally and a section was taken out. This was performed on both the second and third toes. A longitudinal incision was performed over the proximal interphalangeal joint of both the second and third toes. The incision was made through the skin using the 15 blade. The extensor head was divided. The collateral was released off the distal aspect of the proximal phalanx. This exposed the proximal interphalangeal joint. The joint was then resected using a 39 microsaggital saw blade to both the second and third PIP joints. The toe was then pinned using a 0.062 wire, first antegrade and then retrograde to the subchondral bone to the base of the proximal phalanx. A 0.045 K-wire was situated next to the 0.062 wire to control for rotation. The wires were then bent and cut. Intraoperative fluoroscopy confirmed correction of the lesser toe deformity and alignment of the second and third toes. The wounds were copiously irrigated, cleaned and dried. The tourniquet was then let down and hemostasis was confirmed. A small poke hole incision was made over the lateral calcaneus out of the region of the peroneal tendon and sural nerve. A snap was used to approach the lateral calcaneal bone which was then exposed with a Yancey. A 3.5 mm drill bit was used to obtain two plugs of bone graft. This wound was closed using a single horizontal mattress using #3-0 nylon. A 3.0 bur was then used to put two troughs over the dorsal aspect of the first MTP joint. The calcaneal bone graft was placed into these troughs to allow for spot welding. The capsule over the MTP joint was closed using #2-0 Vicryl. A subcutaneous tissue was closed using #3-0 Vicryl. The PIP joints were closed using #3-0 Monocryl in a horizontal mattress fashion. The incisions over the first MTP joint and in the second webspace were closed using #3-0 nylon in a horizontal mattress fashion. At this point, both the second and third toes had pinked up nicely. They had brisk capillary refill. They were situated plantarly with Steri-Strips to hold them down. Xeroform was placed over the incisions and bulky compression dressing was applied. The patient was placed in a well padded splint. The patient tolerated the procedure well and was stable upon transfer to the postanesthesia care unit (PACU). PLAN: The patient will be non weightbearing and the right lower extremity in a splint for 6 weeks total. She will receive 24 hours of IV antibiotics. She will be on aspirin for deep vein thrombosis (DVT) prophylaxis. She will keep her leg elevated for the majority of the day while we allow for her work to heal. She will take vitamin D daily to help with fusion of the arthrodesis site. She will continue to not smoke cigarettes.
--- NOTE | 2017-03-20 17:25 | DSES ---
DATE OF ADMISSION: 03/17/2017 DATE OF DISCHARGE: 03/18/2017 ADMISSION DIAGNOSIS: Right foot pain. OTHER DIAGNOSES: 1. Epilepsy. 2. Asthma. 3. Gastroesophageal reflux disease. 4. Hypertension. 5. Hyperlipidemia. 6. Secondary adrenal insufficiency. 7. Hyponatremia. 8. Depression. DISCHARGE DIAGNOSES: 1. Right foot pain, status post right 1st metatarsophalangeal arthrodesis. 2. Second and 3rd hammertoe deformity with proximal interphalangeal fusion and digitorum longus lengthening. 3. Second metatarsal Jenny shortening osteotomy and a calcaneal bone graft. OPERATION PERFORMED: 1. Right 1st metatarsophalangeal arthrodesis with calcaneal bone graft. 2. Right 2nd and 3rd hammertoe deformity correction with proximal interphalangeal (PIP) fusion and extensor digitorum longus lengthening. 3. Right 2nd metatarsal Jenny shortening osteotomy. HISTORY: Amberly is a 56-year-old female with continued right foot pain. She has failed conservative management. She has consented for an elective surgical fixation of her forefoot with Dr. Jeffery. HOSPITAL COURSE: The patient underwent a right forefoot correction surgery under general anesthesia, which was uneventful. Her hospital course was without complication. She was discharged on oral pain medication. She will resume her preoperative medications and diet. She will take aspirin daily to prevent deep vein thrombosis. Patient will be nonweightbearing in a splint and followup in our office in approximately 7-10 days for a wound check and suture removal. Patient is encouraged to contact our office sooner if there is any increased pain, drainage, numbness or tingling in the extremity, fevers greater than 101 degrees, or any other concerns. Please see medical record for additional details.
== END 2017-03-18 12:00 | disposition home health service (06) | DRG 314 ==
LOC: M OR 05:32 → M MS5PR 13:45
PROVIDERS: ADMIT Orthopaedic Surgery; ATTEND Orthopaedic Surgery
PROC: 0Q8L0ZZ Division of Right Tarsal, Open Approach (ICD-10-PCS; 2017-03-17)
PROC: 0SU Lower Joints, Supplement (ICD-10-PCS; 2017-03-17)
PROC: 0SGH04Z Fusion of Right Tarsal Joint with Internal Fixation Device, Open Approach (ICD-10-PCS; principal; 2017-03-17 07:30)
DX: M20.11 Hallux valgus (acquired), right foot (principal); E27.40 Unspecified adrenocortical insufficiency; I10 Essential (primary) hypertension; M20.41 Other hammer toe(s) (acquired), right foot; G40.909 Epilepsy, unspecified, not intractable, without status epilepticus; J45.909 Unspecified asthma, uncomplicated; K21.9 Gastro-esophageal reflux disease without esophagitis; E78.5 Hyperlipidemia, unspecified; F32.9 Major depressive disorder, single episode, unspecified; Z79.899 Other long term (current) drug therapy; Z87.891 Personal history of nicotine dependence

== ENCOUNTER 2017-03-31 18:46 | Inpatient (IN) | payer OTHER ==
[2017-03-31] MEDS: ACETAMINOPHEN 500 MG TAB PO (20:13)
[2017-03-31] MEDS: RIVAROXABAN 10 MG TAB (XARELTO) PO (20:58)
[2017-04-01] MEDS: ONDANSETRON 4 MG TAB (S0181) PO (09:14)
[2017-04-01] MEDS: LORazepam 0.5 MG TAB PO (12:18)
[2017-04-01] MEDS: FOLIC ACID 1 MG TAB PO (12:18)
[2017-04-01] MEDS: ESCITALOPRAM OXALATE 10 MG TAB (LEXAPRO) PO (12:18)
[2017-04-01] MEDS: MONTELUKAST 10 MG TAB PO (12:18)
[2017-04-01] MEDS: OMEPRAZOLE 20 MG CAP PO (12:18)
[2017-04-01] MEDS: CETIRIZINE (ZyrTEC) 10 MG TAB PO (12:18)
[2017-04-01] MEDS: levETIRAcetam 250MG TABLET (KEPPRA) PO ×3 (13:29→21:18)
[2017-04-01] MEDS: ATORVASTATIN 20 MG TAB PO (21:17)
[2017-04-01] MEDS: risperiDONE 2 MG TAB PO (21:18)
[2017-04-01] MEDS: ACETAMINOPHEN 500 MG TAB PO (21:18)
[2017-04-02] MEDS ORDERED: levETIRAcetam 250MG TABLET (KEPPRA) PO (09:00)
[2017-04-02] MEDS: FOLIC ACID 1 MG TAB PO (10:00)
[2017-04-02] MEDS: MONTELUKAST 10 MG TAB PO (10:00)
[2017-04-02] MEDS: CETIRIZINE (ZyrTEC) 10 MG TAB PO (10:00)
[2017-04-02] MEDS: ESCITALOPRAM OXALATE 10 MG TAB (LEXAPRO) PO (10:00)
[2017-04-02] MEDS: levETIRAcetam 250MG TABLET (KEPPRA) PO ×3 (10:00→20:04)
[2017-04-02] MEDS: OMEPRAZOLE 20 MG CAP PO (10:00)
[2017-04-02] MEDS: RIVAROXABAN 10 MG TAB (XARELTO) PO (18:22)
[2017-04-02] MEDS: ACETAMINOPHEN 500 MG TAB PO (18:22)
[2017-04-02] MEDS: ATORVASTATIN 20 MG TAB PO (20:04)
[2017-04-02] MEDS: risperiDONE 2 MG TAB PO (20:04)
[2017-04-03] MEDS: OMEPRAZOLE 20 MG CAP PO (09:20)
[2017-04-03] MEDS: FOLIC ACID 1 MG TAB PO (09:20)
[2017-04-03] MEDS: ESCITALOPRAM OXALATE 10 MG TAB (LEXAPRO) PO (09:20)
[2017-04-03] MEDS: MONTELUKAST 10 MG TAB PO (09:20)
[2017-04-03] MEDS: CETIRIZINE (ZyrTEC) 10 MG TAB PO (09:20)
[2017-04-03] MEDS: levETIRAcetam 250MG TABLET (KEPPRA) PO ×3 (09:21→20:23)
[2017-04-03] MEDS: ACETAMINOPHEN 500 MG TAB PO ×2 (09:25→20:23)
[2017-04-03] MEDS: RIVAROXABAN 10 MG TAB (XARELTO) PO (17:53)
[2017-04-03] MEDS: risperiDONE 2 MG TAB PO (20:22)
[2017-04-03] MEDS: ATORVASTATIN 20 MG TAB PO (20:22)
[2017-04-04] MEDS: ESCITALOPRAM OXALATE 10 MG TAB (LEXAPRO) PO (08:32)
[2017-04-04] MEDS: MONTELUKAST 10 MG TAB PO (08:32)
[2017-04-04] MEDS: OMEPRAZOLE 20 MG CAP PO (08:32)
[2017-04-04] MEDS: CETIRIZINE (ZyrTEC) 10 MG TAB PO (08:32)
[2017-04-04] MEDS: FOLIC ACID 1 MG TAB PO (08:32)
[2017-04-04] MEDS: levETIRAcetam 250MG TABLET (KEPPRA) PO ×3 (08:33→21:35)
[2017-04-04] MEDS: ACETAMINOPHEN 500 MG TAB PO ×2 (13:40→21:36)
[2017-04-04] MEDS: RIVAROXABAN 10 MG TAB (XARELTO) PO (18:14)
[2017-04-04] MEDS: risperiDONE 2 MG TAB PO (21:35)
[2017-04-04] MEDS: ATORVASTATIN 20 MG TAB PO (21:35)
[2017-04-05] MEDS: levETIRAcetam 250MG TABLET (KEPPRA) PO ×3 (10:24→21:58)
[2017-04-05] MEDS: CETIRIZINE (ZyrTEC) 10 MG TAB PO (10:24)
[2017-04-05] MEDS: MONTELUKAST 10 MG TAB PO (10:24)
[2017-04-05] MEDS: OMEPRAZOLE 20 MG CAP PO (10:25)
[2017-04-05] MEDS: ESCITALOPRAM OXALATE 10 MG TAB (LEXAPRO) PO (10:25)
[2017-04-05] MEDS: FOLIC ACID 1 MG TAB PO (10:26)
[2017-04-05] MEDS: ACETAMINOPHEN 500 MG TAB PO ×2 (10:26→18:54)
[2017-04-05] MEDS: RIVAROXABAN 10 MG TAB (XARELTO) PO (18:53)
[2017-04-05] MEDS: ATORVASTATIN 20 MG TAB PO (21:58)
[2017-04-05] MEDS: risperiDONE 2 MG TAB PO (21:58)
[2017-04-05] MEDS: SODIUM CHLORIDE NASAL 0.65% SPRAY BTL (OCEAN) (21:58)
[2017-04-06] MEDS: LORazepam 0.5 MG TAB PO ×2 (10:28→17:14)
[2017-04-06] MEDS: FOLIC ACID 1 MG TAB PO (10:28)
[2017-04-06] MEDS: OMEPRAZOLE 20 MG CAP PO (10:28)
[2017-04-06] MEDS: MONTELUKAST 10 MG TAB PO (10:28)
[2017-04-06] MEDS: ESCITALOPRAM OXALATE 10 MG TAB (LEXAPRO) PO (10:28)
[2017-04-06] MEDS: CETIRIZINE (ZyrTEC) 10 MG TAB PO (10:29)
[2017-04-06] MEDS: levETIRAcetam 250MG TABLET (KEPPRA) PO ×3 (10:29→21:19)
[2017-04-06] MEDS: RIVAROXABAN 10 MG TAB (XARELTO) PO (17:14)
[2017-04-06] MEDS: ATORVASTATIN 20 MG TAB PO (21:18)
[2017-04-06] MEDS: risperiDONE 2 MG TAB PO (21:19)
[2017-04-07] MEDS: FOLIC ACID 1 MG TAB PO (09:36)
[2017-04-07] MEDS: ESCITALOPRAM OXALATE 10 MG TAB (LEXAPRO) PO (09:37)
[2017-04-07] MEDS: levETIRAcetam 250MG TABLET (KEPPRA) PO ×3 (09:37→21:48)
[2017-04-07] MEDS: OMEPRAZOLE 20 MG CAP PO (09:37)
[2017-04-07] MEDS: MONTELUKAST 10 MG TAB PO (09:38)
[2017-04-07] MEDS: CETIRIZINE (ZyrTEC) 10 MG TAB PO (09:38)
[2017-04-07] MEDS: ACETAMINOPHEN 500 MG TAB PO (13:09)
[2017-04-07] MEDS: RIVAROXABAN 10 MG TAB (XARELTO) PO (18:14)
[2017-04-07] MEDS: ATORVASTATIN 20 MG TAB PO (21:48)
[2017-04-07] MEDS: risperiDONE 2 MG TAB PO (21:48)
[2017-04-08] MEDS: FOLIC ACID 1 MG TAB PO (10:24)
[2017-04-08] MEDS: CETIRIZINE (ZyrTEC) 10 MG TAB PO (10:24)
[2017-04-08] MEDS: levETIRAcetam 250MG TABLET (KEPPRA) PO ×2 (10:25→20:55)
[2017-04-08] MEDS: OMEPRAZOLE 20 MG CAP PO (10:25)
[2017-04-08] MEDS: ESCITALOPRAM OXALATE 10 MG TAB (LEXAPRO) PO (10:26)
[2017-04-08] MEDS: MONTELUKAST 10 MG TAB PO (10:26)
[2017-04-08] MEDS: RIVAROXABAN 10 MG TAB (XARELTO) PO (18:50)
[2017-04-08] MEDS: risperiDONE 2 MG TAB PO (20:55)
[2017-04-08] MEDS: ATORVASTATIN 20 MG TAB PO (20:55)
[2017-04-08] MEDS: ALBUTEROL 90 MCG/ACT 8GM HFA INHALER INH (21:13)
[2017-04-09] MEDS: ESCITALOPRAM OXALATE 10 MG TAB (LEXAPRO) PO (09:07)
[2017-04-09] MEDS: OMEPRAZOLE 20 MG CAP PO (09:07)
[2017-04-09] MEDS: CETIRIZINE (ZyrTEC) 10 MG TAB PO (09:07)
[2017-04-09] MEDS: FOLIC ACID 1 MG TAB PO (09:07)
[2017-04-09] MEDS: levETIRAcetam 250MG TABLET (KEPPRA) PO ×2 (09:07→20:54)
[2017-04-09] MEDS: MONTELUKAST 10 MG TAB PO (09:08)
[2017-04-09] MEDS: MOM 30ML SUSPENSION UDC PO (12:50)
[2017-04-09] MEDS: MIRALAX *UNIT DOSE* 17GM PACKET PO (12:50)
[2017-04-09] MEDS: RIVAROXABAN 10 MG TAB (XARELTO) PO (17:26)
[2017-04-09] MEDS: ACETAMINOPHEN 500 MG TAB PO (20:55)
[2017-04-09] MEDS: ATORVASTATIN 20 MG TAB PO (20:55)
[2017-04-09] MEDS: risperiDONE 2 MG TAB PO (20:55)
[2017-04-10] MEDS: MOM 30ML SUSPENSION UDC PO (09:00)
[2017-04-10] MEDS: MIRALAX *UNIT DOSE* 17GM PACKET PO (09:00)
[2017-04-10] MEDS: FOLIC ACID 1 MG TAB PO (09:09)
[2017-04-10] MEDS: CETIRIZINE (ZyrTEC) 10 MG TAB PO (09:09)
[2017-04-10] MEDS: ESCITALOPRAM OXALATE 10 MG TAB (LEXAPRO) PO (09:09)
[2017-04-10] MEDS: OMEPRAZOLE 20 MG CAP PO (09:09)
[2017-04-10] MEDS: levETIRAcetam 250MG TABLET (KEPPRA) PO ×2 (09:09→22:00)
[2017-04-10] MEDS: MONTELUKAST 10 MG TAB PO (09:09)
[2017-04-10] MEDS: RIVAROXABAN 10 MG TAB (XARELTO) PO (17:44)
[2017-04-10] MEDS: ACETAMINOPHEN 500 MG TAB PO (19:28)
[2017-04-10] MEDS: risperiDONE 2 MG TAB PO (22:01)
[2017-04-10] MEDS: ATORVASTATIN 20 MG TAB PO (22:01)
[2017-04-11] MEDS: MOM 30ML SUSPENSION UDC PO (10:02)
[2017-04-11] MEDS: OMEPRAZOLE 20 MG CAP PO (10:03)
[2017-04-11] MEDS: FOLIC ACID 1 MG TAB PO (10:03)
[2017-04-11] MEDS: CETIRIZINE (ZyrTEC) 10 MG TAB PO (10:03)
[2017-04-11] MEDS: MIRALAX *UNIT DOSE* 17GM PACKET PO (10:03)
[2017-04-11] MEDS: MONTELUKAST 10 MG TAB PO (10:04)
[2017-04-11] MEDS: levETIRAcetam 250MG TABLET (KEPPRA) PO ×2 (10:04→21:31)
[2017-04-11] MEDS: ESCITALOPRAM OXALATE 10 MG TAB (LEXAPRO) PO (10:05)
[2017-04-11] MEDS: ACETAMINOPHEN 500 MG TAB PO (15:26)
[2017-04-11] MEDS: RIVAROXABAN 10 MG TAB (XARELTO) PO (18:04)
[2017-04-11] MEDS: risperiDONE 2 MG TAB PO (21:31)
[2017-04-11] MEDS: ATORVASTATIN 20 MG TAB PO (21:31)
[2017-04-12] MEDS: MONTELUKAST 10 MG TAB PO (10:40)
[2017-04-12] MEDS: OMEPRAZOLE 20 MG CAP PO (10:40)
[2017-04-12] MEDS: levETIRAcetam 250MG TABLET (KEPPRA) PO ×2 (10:41→20:11)
[2017-04-12] MEDS: ESCITALOPRAM OXALATE 10 MG TAB (LEXAPRO) PO (10:41)
[2017-04-12] MEDS: FOLIC ACID 1 MG TAB PO (10:41)
[2017-04-12] MEDS: CETIRIZINE (ZyrTEC) 10 MG TAB PO (10:42)
[2017-04-12] MEDS: MIRALAX *UNIT DOSE* 17GM PACKET PO (10:42)
[2017-04-12] MEDS: MOM 30ML SUSPENSION UDC PO (10:42)
[2017-04-12] MEDS: ACETAMINOPHEN 500 MG TAB PO (10:43)
[2017-04-12] MEDS: LORazepam 0.5 MG TAB PO (10:56)
[2017-04-12] MEDS: RIVAROXABAN 10 MG TAB (XARELTO) PO (18:18)
[2017-04-12] MEDS: ATORVASTATIN 20 MG TAB PO (20:11)
[2017-04-12] MEDS: risperiDONE 2 MG TAB PO (20:57)
[2017-04-13] MEDS: MIRALAX *UNIT DOSE* 17GM PACKET PO (09:18)
[2017-04-13] MEDS: MOM 30ML SUSPENSION UDC PO (09:19)
[2017-04-13] MEDS: FOLIC ACID 1 MG TAB PO (09:19)
[2017-04-13] MEDS: OMEPRAZOLE 20 MG CAP PO (09:20)
[2017-04-13] MEDS: LORazepam 0.5 MG TAB PO (09:20)
[2017-04-13] MEDS: MONTELUKAST 10 MG TAB PO (09:20)
[2017-04-13] MEDS: CETIRIZINE (ZyrTEC) 10 MG TAB PO (09:20)
[2017-04-13] MEDS: ESCITALOPRAM OXALATE 10 MG TAB (LEXAPRO) PO (09:20)
[2017-04-13] MEDS: levETIRAcetam 250MG TABLET (KEPPRA) PO ×2 (09:20→20:29)
[2017-04-13] MEDS: RIVAROXABAN 10 MG TAB (XARELTO) PO (18:18)
[2017-04-13] MEDS: ATORVASTATIN 20 MG TAB PO (20:28)
[2017-04-13] MEDS: risperiDONE 2 MG TAB PO (20:29)
[2017-04-14] MEDS: ACETAMINOPHEN 500 MG TAB PO ×2 (08:43→17:24)
[2017-04-14] MEDS: levETIRAcetam 250MG TABLET (KEPPRA) PO ×2 (08:43→20:33)
[2017-04-14] MEDS: MOM 30ML SUSPENSION UDC PO (08:43)
[2017-04-14] MEDS: ESCITALOPRAM OXALATE 10 MG TAB (LEXAPRO) PO (08:43)
[2017-04-14] MEDS: MONTELUKAST 10 MG TAB PO (08:44)
[2017-04-14] MEDS: OMEPRAZOLE 20 MG CAP PO (08:44)
[2017-04-14] MEDS: FOLIC ACID 1 MG TAB PO (08:44)
[2017-04-14] MEDS: MIRALAX *UNIT DOSE* 17GM PACKET PO (08:44)
[2017-04-14] MEDS: CETIRIZINE (ZyrTEC) 10 MG TAB PO (08:44)
[2017-04-14] MEDS: RIVAROXABAN 10 MG TAB (XARELTO) PO (17:23)
[2017-04-14] MEDS: risperiDONE 2 MG TAB PO (20:32)
[2017-04-14] MEDS: ATORVASTATIN 20 MG TAB PO (20:32)
[2017-04-15] MEDS: levETIRAcetam 250MG TABLET (KEPPRA) PO ×2 (08:17→22:19)
[2017-04-15] MEDS: FOLIC ACID 1 MG TAB PO (08:17)
[2017-04-15] MEDS: MONTELUKAST 10 MG TAB PO (08:18)
[2017-04-15] MEDS: ESCITALOPRAM OXALATE 10 MG TAB (LEXAPRO) PO (08:18)
[2017-04-15] MEDS: CETIRIZINE (ZyrTEC) 10 MG TAB PO (08:18)
[2017-04-15] MEDS: OMEPRAZOLE 20 MG CAP PO (08:18)
[2017-04-15] MEDS: MOM 30ML SUSPENSION UDC PO (08:21)
[2017-04-15] MEDS: MIRALAX *UNIT DOSE* 17GM PACKET PO (08:21)
[2017-04-15] MEDS: ACETAMINOPHEN 500 MG TAB PO (15:38)
[2017-04-15] MEDS: RIVAROXABAN 10 MG TAB (XARELTO) PO (18:19)
[2017-04-15] MEDS: risperiDONE 2 MG TAB PO (22:19)
[2017-04-15] MEDS: ATORVASTATIN 20 MG TAB PO (22:19)
[2017-04-16] MEDS: OMEPRAZOLE 20 MG CAP PO (08:29)
[2017-04-16] MEDS: ESCITALOPRAM OXALATE 10 MG TAB (LEXAPRO) PO (08:29)
[2017-04-16] MEDS: FOLIC ACID 1 MG TAB PO (08:29)
[2017-04-16] MEDS: levETIRAcetam 250MG TABLET (KEPPRA) PO ×2 (08:29→19:42)
[2017-04-16] MEDS: MONTELUKAST 10 MG TAB PO (08:30)
[2017-04-16] MEDS: CETIRIZINE (ZyrTEC) 10 MG TAB PO (08:30)
[2017-04-16] MEDS: LORazepam 0.5 MG TAB PO (08:50)
[2017-04-16] MEDS: MOM 30ML SUSPENSION UDC PO (08:51)
[2017-04-16] MEDS: MIRALAX *UNIT DOSE* 17GM PACKET PO (08:51)
[2017-04-16] MEDS: RIVAROXABAN 10 MG TAB (XARELTO) PO (18:38)
[2017-04-16] MEDS: ATORVASTATIN 20 MG TAB PO (19:42)
[2017-04-16] MEDS: risperiDONE 2 MG TAB PO (19:42)
[2017-04-17] MEDS: OMEPRAZOLE 20 MG CAP PO (08:54)
[2017-04-17] MEDS: MONTELUKAST 10 MG TAB PO (08:54)
[2017-04-17] MEDS: FOLIC ACID 1 MG TAB PO (08:55)
[2017-04-17] MEDS: CETIRIZINE (ZyrTEC) 10 MG TAB PO (08:55)
[2017-04-17] MEDS: levETIRAcetam 250MG TABLET (KEPPRA) PO ×2 (08:55→20:02)
[2017-04-17] MEDS: ESCITALOPRAM OXALATE 10 MG TAB (LEXAPRO) PO (08:55)
[2017-04-17] MEDS: LORazepam 0.5 MG TAB PO (09:00)
[2017-04-17] MEDS: ASPIRIN 325 MG TAB PO ×2 (13:09→20:02)
[2017-04-17] MEDS: ATORVASTATIN 20 MG TAB PO (20:01)
[2017-04-17] MEDS: risperiDONE 2 MG TAB PO (20:02)
[2017-04-18] MEDS: CETIRIZINE (ZyrTEC) 10 MG TAB PO (08:47)
[2017-04-18] MEDS: ASPIRIN 325 MG TAB PO ×2 (08:47→21:14)
[2017-04-18] MEDS: OMEPRAZOLE 20 MG CAP PO (08:47)
[2017-04-18] MEDS: FOLIC ACID 1 MG TAB PO (08:48)
[2017-04-18] MEDS: ESCITALOPRAM OXALATE 10 MG TAB (LEXAPRO) PO (08:48)
[2017-04-18] MEDS: ACETAMINOPHEN 500 MG TAB PO (08:48)
[2017-04-18] MEDS: levETIRAcetam 250MG TABLET (KEPPRA) PO ×2 (08:49→21:15)
[2017-04-18] MEDS: MONTELUKAST 10 MG TAB PO (08:49)
[2017-04-18] MEDS: risperiDONE 2 MG TAB PO (21:14)
[2017-04-18] MEDS: ATORVASTATIN 20 MG TAB PO (21:14)
[2017-04-19] MEDS: ASPIRIN 325 MG TAB PO ×2 (08:57→20:44)
[2017-04-19] MEDS: FOLIC ACID 1 MG TAB PO (08:57)
[2017-04-19] MEDS: CETIRIZINE (ZyrTEC) 10 MG TAB PO (08:58)
[2017-04-19] MEDS: ESCITALOPRAM OXALATE 10 MG TAB (LEXAPRO) PO (08:58)
[2017-04-19] MEDS: levETIRAcetam 250MG TABLET (KEPPRA) PO ×2 (08:58→20:44)
[2017-04-19] MEDS: OMEPRAZOLE 20 MG CAP PO (08:58)
[2017-04-19] MEDS: ACETAMINOPHEN 500 MG TAB PO ×2 (08:59→20:45)
[2017-04-19] MEDS: MONTELUKAST 10 MG TAB PO (08:59)
[2017-04-19] MEDS: LORazepam 0.5 MG TAB PO ×2 (09:04→20:45)
[2017-04-19] MEDS: risperiDONE 2 MG TAB PO (20:44)
[2017-04-19] MEDS: ATORVASTATIN 20 MG TAB PO (20:45)
[2017-04-20] MEDS: MONTELUKAST 10 MG TAB PO (09:33)
[2017-04-20] MEDS: FOLIC ACID 1 MG TAB PO (09:33)
[2017-04-20] MEDS: ESCITALOPRAM OXALATE 10 MG TAB (LEXAPRO) PO (09:33)
[2017-04-20] MEDS: LORazepam 0.5 MG TAB PO (09:33)
[2017-04-20] MEDS: levETIRAcetam 250MG TABLET (KEPPRA) PO ×2 (09:33→20:24)
[2017-04-20] MEDS: ASPIRIN 325 MG TAB PO ×2 (09:33→20:24)
[2017-04-20] MEDS: CETIRIZINE (ZyrTEC) 10 MG TAB PO (09:33)
[2017-04-20] MEDS: OMEPRAZOLE 20 MG CAP PO (09:33)
[2017-04-20] MEDS: ACETAMINOPHEN 500 MG TAB PO (09:35)
[2017-04-20] MEDS: MOM 30ML SUSPENSION UDC PO (10:10)
[2017-04-20] MEDS: risperiDONE 2 MG TAB PO (20:24)
[2017-04-20] MEDS: ATORVASTATIN 20 MG TAB PO (20:24)
[2017-04-21 09:24] LABS: HEMATOCRIT 34.5 % (36.0-47.0); HEMOGLOBIN 11.4 g/dl (12.0-16.0); MEAN CORPUSCULAR HEMOGLOBIN 28.4 pg (27.0-33.0); PLATELET COUNT, AUTOMATED 259 10^3/uL (150-450); RED BLOOD COUNT 4.01 10^6/uL (4.00-5.40); RED CELL DISTRIBUTION WIDTH 12.5 % (11.5-14.5); WHITE BLOOD COUNT 6.8 10^3/uL (4.0-10.0)
[2017-04-21] MEDS: CETIRIZINE (ZyrTEC) 10 MG TAB PO (09:48)
[2017-04-21] MEDS: MOM 30ML SUSPENSION UDC PO (09:48)
[2017-04-21] MEDS: LORazepam 0.5 MG TAB PO ×2 (09:49→20:40)
[2017-04-21] MEDS: MONTELUKAST 10 MG TAB PO (09:49)
[2017-04-21] MEDS: ESCITALOPRAM OXALATE 10 MG TAB (LEXAPRO) PO (09:49)
[2017-04-21] MEDS: levETIRAcetam 250MG TABLET (KEPPRA) PO ×2 (09:49→20:40)
[2017-04-21] MEDS: ASPIRIN 325 MG TAB PO ×2 (09:49→20:39)
[2017-04-21] MEDS: FOLIC ACID 1 MG TAB PO (09:49)
[2017-04-21] MEDS: ACETAMINOPHEN 500 MG TAB PO ×2 (09:49→20:40)
[2017-04-21] MEDS: OMEPRAZOLE 20 MG CAP PO (09:49)
[2017-04-21 09:51] LABS: ANION GAP 7 MEQ/L (8-16); BLOOD UREA NITROGEN 11 MG/DL (7-18); CALCIUM LEVEL 9.1 MG/DL (8.5-10.1); CARBON DIOXIDE LEVEL 27 MEQ/L (21-32); CHLORIDE LEVEL 103 MEQ/L (98-107); CREATININE FOR GFR 0.79 MG/DL (0.55-1.02); GLOMERULAR FILTRATION RATE > 60.0 (>51); GLUCOSE, FASTING 91 MG/DL (70-105); POTASSIUM SERUM 4.2 MEQ/L (3.5-5.1); SODIUM LEVEL 137 MEQ/L (136-145)
[2017-04-21] MEDS: ATORVASTATIN 20 MG TAB PO (20:40)
[2017-04-21] MEDS: risperiDONE 2 MG TAB PO (20:40)
[2017-04-22] MEDS: MONTELUKAST 10 MG TAB PO (08:58)
[2017-04-22] MEDS: CETIRIZINE (ZyrTEC) 10 MG TAB PO (08:58)
[2017-04-22] MEDS: ASPIRIN 325 MG TAB PO (08:58)
[2017-04-22] MEDS: ESCITALOPRAM OXALATE 10 MG TAB (LEXAPRO) PO (08:58)
[2017-04-22] MEDS: OMEPRAZOLE 20 MG CAP PO (08:58)
[2017-04-22] MEDS: FOLIC ACID 1 MG TAB PO (08:58)
[2017-04-22] MEDS: levETIRAcetam 250MG TABLET (KEPPRA) PO (08:59)
[2017-04-22] MEDS: LORazepam 0.5 MG TAB PO (09:02)
[2017-04-24 14:19] LABS: LEVETIRACETAM (KEPPRA) 20.8 ug/mL (10.0-40.0)
== END 2017-04-22 13:10 | disposition home health service (06) | DRG 862 ==
LOC: M MS5PR 04-13 14:48
PROVIDERS: Orthopaedic Surgery
DX: Z47.89 Encounter for other orthopedic aftercare (principal); E53.8 Deficiency of other specified B group vitamins; I10 Essential (primary) hypertension; G40.909 Epilepsy, unspecified, not intractable, without status epilepticus; J45.909 Unspecified asthma, uncomplicated; K21.9 Gastro-esophageal reflux disease without esophagitis; E78.5 Hyperlipidemia, unspecified; F32.9 Major depressive disorder, single episode, unspecified; G47.00 Insomnia, unspecified; F41.9 Anxiety disorder, unspecified; Z79.82 Long term (current) use of aspirin; Z79.899 Other long term (current) drug therapy; Z87.891 Personal history of nicotine dependence; Z74.09 Other reduced mobility; Z74.2 Need for assistance at home and no other household member able to render care

== ENCOUNTER → 2017-08-27 | Outpatient (REF) | payer OTHER ==
[2017-08-27 12:26] LABS: ALBUMIN 3.8 GM/DL (3.2-5.2); ALBUMIN/GLOBULIN RATIO 0.95 (1.00-1.93); ALKALINE PHOSPHATASE 175 U/L (45-117); ALT/SGPT 23 U/L (12-78); ANION GAP 6 MEQ/L (8-16); AST/SGOT 19 U/L (7-37); BILIRUBIN,TOTAL 0.3 MG/DL (0.2-1.0); BLOOD UREA NITROGEN 18 MG/DL (7-18); CALCIUM LEVEL 9.2 MG/DL (8.5-10.1); CARBON DIOXIDE LEVEL 28 MEQ/L (21-32); CHLORIDE LEVEL 104 MEQ/L (98-107); CHOLESTEROL LEVEL 165 MG/DL (<200); CHOLESTEROL RISK RATIO 3.367 (<5); CREATININE FOR GFR 0.89 MG/DL (0.55-1.30); GLOMERULAR FILTRATION RATE > 60.0 (>51); GLUCOSE, FASTING 100 MG/DL (70-100); HDL CHOLESTEROL 49 MG/DL (>40); LDL CHOLESTEROL 89.2 MG/DL (<100); NON-HDL-C 116 MG/DL; POTASSIUM SERUM 4.4 MEQ/L (3.5-5.1); SODIUM LEVEL 138 MEQ/L (136-145); TOTAL PROTEIN 7.8 GM/DL (6.4-8.2); TRIGLYCERIDES LEVEL 134 MG/DL (<150)
== END ==
LOC: M LAB REF 11:50
DX: Z00.01 Encounter for general adult medical examination with abnormal findings (principal)
CPT/HCPCS: 84443

== ENCOUNTER 2017-12-04 14:10 | Emergency (ER) | payer OTHER ==
[2017-12-04 14:48] LABS: BASO % 0.1 % (0.0-1.0); HEMATOCRIT 32.9 % (36.0-47.0); HEMOGLOBIN 10.7 g/dl (12.0-15.5); IMMATURE GRANULOCYTE % 0.2 % (0-3.0); LYMPH # 1.6 10^3/uL (1.5-4.5); LYMPH % 19.4 % (24.0-44.0); MEAN CORPUSCULAR HEMOGLOBIN 26.8 pg (27.0-33.0); MEAN CORPUSCULAR HGB CONC 32.5 g/dl (32.0-36.5); MEAN CORPUSCULAR VOLUME 82.5 fl (80.0-96.0); MONO # 0.6 10^3/uL (0.0-0.8); NEUTROPHILS # 6.1 10^3/uL (1.8-7.7); NEUTROPHILS % 73.3 % (36.0-66.0); PLATELET COUNT, AUTOMATED 405 10^3/uL (150-450); RED BLOOD COUNT 3.99 10^6/uL (4.00-5.40); RED CELL DISTRIBUTION WIDTH 13.8 % (11.5-14.5); WHITE BLOOD COUNT 8.4 10^3/uL (4.0-10.0)
[2017-12-04] MEDS: ONDANSETRON 4MG/2ML VIAL (J2405) IV (15:09)
[2017-12-04] MEDS: NS 500 ML IV (15:13)
[2017-12-04] MEDS: GI COCKTAIL 50ML BTL(HYOSCYAMINE/MAALOX/LIDOCAINE VISCOUS)(1:3:1) PO (15:13)
[2017-12-04 15:15] LABS: ALBUMIN 3.4 GM/DL (3.2-5.2); ALBUMIN/GLOBULIN RATIO 0.79 (1.00-1.93); ALKALINE PHOSPHATASE 192 U/L (45-117); ALT/SGPT 27 U/L (12-78); ANION GAP 10 MEQ/L (8-16); AST/SGOT 17 U/L (7-37); BILIRUBIN,DIRECT < 0.1 MG/DL (0.0-0.2); BILIRUBIN,TOTAL 0.3 MG/DL (0.2-1.0); BLOOD UREA NITROGEN 3 MG/DL (7-18); CALCIUM LEVEL 8.6 MG/DL (8.5-10.1); CARBON DIOXIDE LEVEL 26 MEQ/L (21-32); CHLORIDE LEVEL 98 MEQ/L (98-107); CK-MB VALUE MASS 1.1 NG/ML (<3.6); CPK CREATINE PHOSPHOKINASE 73 U/L (26-192); CREATININE FOR GFR 0.91 MG/DL (0.55-1.30); GLOMERULAR FILTRATION RATE > 60.0 (>51); GLUCOSE, FASTING 90 MG/DL (70-100); LIPASE 52 U/L (73-393); POTASSIUM SERUM 3.4 MEQ/L (3.5-5.1); SODIUM LEVEL 134 MEQ/L (136-145); TOTAL PROTEIN 7.7 GM/DL (6.4-8.2); TROPONIN I < 0.02 NG/ML (< 0.10)
[2017-12-04] MEDS: NS 1,000 ML IV (16:36)
[2017-12-04 17:31] LABS: D-DIMER QUANT 1863.8 ng/ml (<500)
[2017-12-08 14:12] LABS: LEVETIRACETAM (KEPPRA) 25.8 ug/mL (10.0-40.0)
== END 2017-12-04 18:00 | disposition home or self-care (01) ==
LOC: M ED 14:10
DX: R07.9 Chest pain, unspecified (principal); J45.909 Unspecified asthma, uncomplicated; K21.9 Gastro-esophageal reflux disease without esophagitis; I10 Essential (primary) hypertension; F17.210 Nicotine dependence, cigarettes, uncomplicated
CPT/HCPCS: J2405

== ENCOUNTER → 2018-03-13 | Outpatient (REF) | payer OTHER ==
[2018-03-13 17:56] LABS: ALBUMIN 3.8 GM/DL (3.2-5.2); ALKALINE PHOSPHATASE 189 U/L (45-117); ALT/SGPT 30 U/L (12-78); ANION GAP 10 MEQ/L (8-16); AST/SGOT 19 U/L (7-37); BILIRUBIN,TOTAL 0.3 MG/DL (0.2-1.0); BLOOD UREA NITROGEN 5 MG/DL (7-18); CARBON DIOXIDE LEVEL 26 MEQ/L (21-32); CHLORIDE LEVEL 100 MEQ/L (98-107); CHOLESTEROL LEVEL 129 MG/DL (<200); CHOLESTEROL RISK RATIO 2.345 (<5); CREATININE FOR GFR 0.98 MG/DL (0.55-1.30); GLOMERULAR FILTRATION RATE > 60.0 (>51); GLUCOSE, FASTING 90 MG/DL (70-100); HDL CHOLESTEROL 55 MG/DL (>40); LDL CHOLESTEROL 61 MG/DL (<100); NON-HDL-C 74 MG/DL; POTASSIUM SERUM 4.5 MEQ/L (3.5-5.1); SODIUM LEVEL 136 MEQ/L (136-145); TOTAL PROTEIN 7.6 GM/DL (6.4-8.2); TRIGLYCERIDES LEVEL 66 MG/DL (<150)
== END ==
LOC: M LAB REF 16:29
DX: R56.9 Unspecified convulsions (principal); E78.2 Mixed hyperlipidemia
CPT/HCPCS: 84443

== ENCOUNTER → 2018-04-02 | Outpatient (REF) | payer OTHER, MEDICAID ==
[~2018-04-02] MED LIST changes: -AMLO5TAB2 PO; +AMLO5TAB4 PO; +ASPI325T PO; -DRIS50002 PO; +DRIS50003 PO; +EFFE75CA2 PO; -EFFE75CA75 PO; -FOLI1TAB4 PO; +FOLI1TAB5 PO; +HYDR-643; -INCR1INH IN; +INCR1INH INH; +KEFL500C17 PO; +OXYC1SOL3 PO; -RISP2TAB3; +RISP2TAB3 PO; +TRAZ-160 PO; -TRAZ50TA11 PO; +XARE10TA PO
== END ==
LOC: M LAB REF 18:33
PROVIDERS: ATTEND Family Medicine Addiction Medicine
DX: R30.0 Dysuria (principal)

== ENCOUNTER → 2018-09-28 | Outpatient (REF) | payer OTHER, MEDICAID ==
[~2018-09-28] MED LIST changes: -AMLO5TAB4 PO; +AMLO5TAB6 PO; +ASPI-1 PO; -ASPI325T PO; +CEFD300C41 PO; -CEFD300CAP PO; +FOLI1TAB11 PO; -FOLI1TAB5 PO; -HYDR-3291 PO; +HYDR-4327 PO; +HYDR-4513 PO; -HYDR5TAB59 PO; -TRAZ-160 PO; +TRAZ-252 PO; +TRAZ1TAB10 PO; -TRAZO50TA PO; +VITA100018 PO; -VITA100072 PO
[2018-09-28 17:15] LABS: ALBUMIN 3.6 GM/DL (3.2-5.2); ALT/SGPT 20 U/L (12-78); BILIRUBIN,TOTAL 0.2 MG/DL (0.2-1.0); BLOOD UREA NITROGEN 9 MG/DL (7-18); CALCIUM LEVEL 8.9 MG/DL (8.5-10.1); CARBON DIOXIDE LEVEL 26 MEQ/L (21-32); CHLORIDE LEVEL 105 MEQ/L (98-107); CREATININE FOR GFR 0.88 MG/DL (0.55-1.30); GLOMERULAR FILTRATION RATE > 60.0 (>51); GLUCOSE, FASTING 94 MG/DL (70-100); POTASSIUM SERUM 4.4 MEQ/L (3.5-5.1); SODIUM LEVEL 137 MEQ/L (136-145); THYROID STIMULATING HORMONE 0.878 uIU/ML (0.358-3.740); TOTAL PROTEIN 7.6 GM/DL (6.4-8.2)
[2018-09-28 17:23] LABS: BASO % 0.1 % (0.0-1.0); HEMATOCRIT 35.9 % (36.0-47.0); HEMOGLOBIN 11.4 g/dl (12.0-15.5); LYMPH # 2.4 10^3/uL (1.5-4.5); LYMPH % 21.5 % (24.0-44.0); MEAN CORPUSCULAR HEMOGLOBIN 26.8 pg (27.0-33.0); MEAN CORPUSCULAR HGB CONC 31.8 g/dl (32.0-36.5); MEAN CORPUSCULAR VOLUME 84.3 fl (80.0-96.0); MONO # 0.7 10^3/uL (0.0-0.8); NEUTROPHILS % 72.1 % (36.0-66.0); PLATELET COUNT, AUTOMATED 196 10^3/uL (150-450); RED BLOOD COUNT 4.26 10^6/uL (4.00-5.40); WHITE BLOOD COUNT 11.1 10^3/uL (4.0-10.0)
[2018-09-28 21:34] LABS: CHLAMYDIA DNA AMPLIFICATION NEGATIVE (NEGATIVE); GC DNA AMPLIFICATION NEGATIVE (NEGATIVE)
== END ==
LOC: M LAB REF 16:31
PROVIDERS: ATTEND Nurse Practitioner Adult Health
DX: R56.9 Unspecified convulsions (principal); R30.0 Dysuria

== ENCOUNTER → 2018-12-02 | Outpatient (REF) | payer OTHER, MEDICAID ==
[~2018-12-02] MED LIST changes: -OMEP20CA3 PO; +OMEP20CA4 PO; -OXYB10TA PO; +OXYB10TA2 PO
[2018-12-02 15:54] LABS: BASO % 0.2 % (0.0-1.0); HEMOGLOBIN 12.6 g/dl (12.0-15.5); LYMPH # 2.4 10^3/uL (1.5-4.5); LYMPH % 18.7 % (24.0-44.0); MEAN CORPUSCULAR HEMOGLOBIN 26.6 pg (27.0-33.0); MEAN CORPUSCULAR HGB CONC 31.5 g/dl (32.0-36.5); MEAN CORPUSCULAR VOLUME 84.6 fl (80.0-96.0); MONO # 0.8 10^3/uL (0.0-0.8); MONO % 6.2 % (0.0-5.0); NEUTROPHILS # 9.6 10^3/uL (1.8-7.7); NEUTROPHILS % 74.7 % (36.0-66.0); PLATELET COUNT, AUTOMATED 241 10^3/uL (150-450); RED BLOOD COUNT 4.73 10^6/uL (4.00-5.40); WHITE BLOOD COUNT 12.8 10^3/uL (4.0-10.0)
[2018-12-02 16:17] LABS: FERRITIN 13 NG/ML (8-252); IRON (FE) 41 UG/DL (50-170); PERCENT SATURATION 9.4 % (13.2-45.0); TOTAL IRON BINDING CAPACITY 434 UG/DL (250-450)
[2018-12-02 16:25] LABS: VITAMIN B12 LEVEL 458 PG/ML (247-911)
[2018-12-02 16:26] LABS: FOLATE > 24.0 NG/ML (>5.4)
== END ==
LOC: M LAB REF 15:14
PROVIDERS: ATTEND Nurse Practitioner Family
DX: D64.9 Anemia, unspecified (principal)

== ENCOUNTER 2019-01-08 10:52 | Emergency (ER) | payer MEDICAID, OTHER ==
[~2019-01-08] VITALS: Ht 172.7 cm; Wt 89.0 kg
[2019-01-08] MEDS ORDERED: AMAN100T PO (11:53)
[2019-01-08] MEDS ORDERED: MIRT1TAB16 PO (11:53)
[2019-01-08] MEDS ORDERED: ARIP1TAB PO (11:53)
--- NOTE | 2019-01-08 12:24 | REP ---
CT brain without contrast: History: Dizziness. Comparison CT study September 05, 2016. Findings: Digital preliminary electrical equipment tester radiograph is unremarkable. The patient is edentulous. Bone window settings demonstrate an intact bony calvarium. Visualized paranasal sinuses are clear. No intraorbital abnormality is seen. There is minimal generalized volume loss on soft-tissue window settings. Eaton-white differentiation pattern is normal above below the tentorium. There is no evidence of intracranial hemorrhage. No mass, extra-axial fluid collection, midline shift or infarct is seen. Impression: Minimal generalized volume loss unchanged. No acute intracranial abnormality. Electronically Signed by Tello Sanchez MD 01/08/2019 12:16 P
[2019-01-08 12:37] LABS: HEMATOCRIT 36.6 % (36.0-47.0); HEMOGLOBIN 11.7 g/dl (12.0-15.5); MEAN CORPUSCULAR HEMOGLOBIN 26.7 pg (27.0-33.0); MEAN CORPUSCULAR VOLUME 83.6 fl (80.0-96.0); PLATELET COUNT, AUTOMATED 338 10^3/uL (150-450); RED BLOOD COUNT 4.38 10^6/uL (4.00-5.40)
[2019-01-08 13:17] LABS: ALBUMIN 3.5 GM/DL (3.2-5.2); ALT/SGPT 21 U/L (12-78); BILIRUBIN,DIRECT < 0.1 MG/DL (0.0-0.2); BILIRUBIN,TOTAL 0.3 MG/DL (0.2-1.0); BLOOD UREA NITROGEN 6 MG/DL (7-18); CALCIUM LEVEL 9.4 MG/DL (8.5-10.1); CARBON DIOXIDE LEVEL 30 MEQ/L (21-32); CHLORIDE LEVEL 104 MEQ/L (98-107); CPK CREATINE PHOSPHOKINASE 102 U/L (26-192); CREATININE FOR GFR 0.77 MG/DL (0.55-1.30); ETHYL ALCOHOL (ETHANOL) < 0.003 % (0.000-0.010); GLOMERULAR FILTRATION RATE > 60.0 (>51); GLUCOSE, FASTING 89 MG/DL (70-100); MB/CK RELATIVE INDEX 1.96 (< OR =4); POTASSIUM SERUM 4.3 MEQ/L (3.5-5.1); SALICYLATE LEVEL < 1.7 MG/DL (5.0-30.0); SODIUM LEVEL 139 MEQ/L (136-145); THYROID STIMULATING HORMONE 0.878 uIU/ML (0.358-3.740); TROPONIN I < 0.02 NG/ML (< 0.10)
[2019-01-08 13:18] LABS: ACETAMINOPHEN LEVEL < 2.0 UG/ML (10.0-30.0)
[2019-01-08] MEDS ORDERED: LIDOCAINE 2% 5ML JELLY UROJET TOP ONE (14:15)
[2019-01-08 15:28] LABS: AMPHETAMINES LEVEL URINE NEGATIVE (NEGATIVE); BARBITURATES URINE NEGATIVE (NEGATIVE); BENZODIAZEPINES URINE NEGATIVE (NEGATIVE); CANNABINOIDS URINE NEGATIVE (NEGATIVE); COCAINE METABOLITE URINE NEGATIVE (NEGATIVE); METHADONE URINE NEGATIVE (NEGATIVE); OPIATES URINE NEGATIVE (NEGATIVE); PHENCYCLIDINE URINE NEGATIVE (NEGATIVE)
[2019-01-08] MEDS ORDERED: BACTRIM 160MG/800MG DS TAB PO ONE (15:30)
[2019-01-08] MEDS ORDERED: BACT800T5 PO (17:00)
[2019-01-08 17:16] VITALS: BP 157/93
--- NOTE | 2019-01-08 20:09 | ECGEPIP ---
[facility] - ED Test Date: 2019-01-08 Pat Name: NAVEEN SCOTT Department: Room: - Gender: Female Clinical Documentation Spec: TON : 1960 Requested By: Hayden Escalante Order Number: [id number] Reading MD: Kalen Barcenas Measurements Intervals [place] Rate: 63 P: 60 [place]: 180 QRS: 67 QRSD: 151 T: 28 QT: 406 QTc: 417 Interpretive Statements SINUS RHYTHM RIGHT BUNDLE BRANCH BLOCK SIMILAR TO 04/15/18 Electronically Signed on 01-08-2019 20:09:17 EDT by Kalen Barcenas
== END 2019-01-08 17:28 | disposition home or self-care (01) ==
LOC: M ED 10:52
DX: Z91.19 Patient's noncompliance with other medical treatment and regimen (principal); N39.0 Urinary tract infection, site not specified; I45.10 Unspecified right bundle-branch block; I10 Essential (primary) hypertension; R51 Headache; F41.9 Anxiety disorder, unspecified; F32.9 Major depressive disorder, single episode, unspecified; F17.200 Nicotine dependence, unspecified, uncomplicated; Z79.899 Other long term (current) drug therapy
CPT/HCPCS: 36415; 70450; 80048; 80076; 80180; 80307; 81001; 82140; 82550; 82553; 84443; 85027; 87088; 87186; 93005; 99285; G0480

== ENCOUNTER → 2019-03-18 | Outpatient (CLI) | payer OTHER ==
[~2019-03-18] MED LIST changes: +AMAN100T PO; +ARIP1TAB PO; +BACT800T5 PO; +MIRT1TAB16 PO
--- NOTE | 2019-03-18 14:48 | REP ---
DIAGNOSTIC MAMMOGRAM RIGHT BREAST: Diagnostic mammogram right breast performed with multiple spot compression views obtained. Correlation made with recent mammogram of 02/15/2019 [facility], [place], [place]. Comparison also made with prior mammograms of 12/25/2016, 12/11/2015 and 08/25/2013. There is a family history of breast cancer in sister at age 25. Tyrer-Cuzick lifetime risk of breast cancer 6.0%. Moderate scattered fibroglandular tissue is again seen throughout the right breast. The 7 mm oval opacity posteriorly compresses out to an unchanged appearance compared to the multiple prior studies. The 5 mm nodular density posteriorly and centrally on the right MLO view also compresses out to an unchanged appearance. The asymmetric density posteriorly/inferiorly on the recent right MLO view also appears to compress out to an unchanged appearance. There is no persistent suspicious nodule in the right breast. IMPRESSION: BIRADS 2: BI-RADS/ACR category 2 mammogram. Benign Findings. ACR 2 benign. No persistent nodule seen. Routine followup mammogram recommended in 1 year. Patient letter being requested is M1. Electronically Signed by Solis Eaton MD 03/18/2019 04:56 P
== END ==
LOC: M RAD 12:26
PROVIDERS: ATTEND Nurse Practitioner Family
DX: Z12.31 Encounter for screening mammogram for malignant neoplasm of breast (principal)

== ENCOUNTER → 2019-07-21 | Outpatient (CLI) | payer OTHER ==
[~2019-07-21] MED LIST changes: -MONT10TA2 PO; +MONT10TA4 PO; +OMEP1CAP73 PO; -OMEP20CA4 PO; -OXYB10TA2 PO; +OXYB10TA23 PO
== END ==
LOC: M LABSMTC 12:32
PROVIDERS: ATTEND Family Medicine
DX: Z11.59 Encounter for screening for other viral diseases (principal); Z20.818 Contact with and (suspected) exposure to other bacterial communicable diseases

== ENCOUNTER → 2019-09-09 | Outpatient (REF) | payer OTHER ==
[~2019-09-09] MED LIST changes: -HYDR-4327 PO; +HYDR-4467 PO; +HYDR-4468 PO; -HYDR-4513 PO
[2019-09-09 15:26] LABS: BASO % 0.2 % (0.0-1.0); HEMATOCRIT 38.6 % (36.0-47.0); HEMOGLOBIN 12.3 g/dl (12.0-15.5); LYMPH % 38.2 % (24.0-44.0); MEAN CORPUSCULAR HEMOGLOBIN 28.1 pg (27.0-33.0); MEAN CORPUSCULAR HGB CONC 31.9 g/dl (32.0-36.5); MEAN CORPUSCULAR VOLUME 88.1 fl (80.0-96.0); MONO # 0.5 10^3/uL (0.0-0.8); MONO % 9.6 % (0.0-5.0); NEUTROPHILS # 2.7 10^3/uL (1.5-8.5); NEUTROPHILS % 51.8 % (36.0-66.0); PLATELET COUNT, AUTOMATED 252 10^3/uL (150-450); RED BLOOD COUNT 4.38 10^6/uL (4.00-5.40); WHITE BLOOD COUNT 5.3 10^3/uL (4.0-10.0)
[2019-09-09 15:31] LABS: ALBUMIN 3.6 GM/DL (3.2-5.2); ALT/SGPT 22 U/L (12-78); BILIRUBIN,TOTAL 0.3 MG/DL (0.2-1.0); BLOOD UREA NITROGEN 11 MG/DL (7-18); CARBON DIOXIDE LEVEL 27 MEQ/L (21-32); CHLORIDE LEVEL 105 MEQ/L (98-107); CHOLESTEROL LEVEL 161 MG/DL (<200); CREATININE FOR GFR 0.85 MG/DL (0.55-1.30); FERRITIN 36 NG/ML (8-252); FOLATE 22.9 NG/ML (>5.4); GLOMERULAR FILTRATION RATE > 60.0 (>51); GLUCOSE, FASTING 97 MG/DL (70-100); HDL CHOLESTEROL 50 MG/DL (>40); IRON (FE) 34 UG/DL (50-170); LDL CHOLESTEROL 89 MG/DL (<100); NON-HDL-C 111 MG/DL; POTASSIUM SERUM 4.2 MEQ/L (3.5-5.1); SODIUM LEVEL 141 MEQ/L (136-145); TOTAL PROTEIN 7.2 GM/DL (6.4-8.2); TRIGLYCERIDES LEVEL 112 MG/DL (<150); VITAMIN B12 LEVEL 384 PG/ML (247-911)
[2019-09-09 15:35] LABS: HEMOGLOBIN A1c 5.4 %
== END ==
LOC: M LAB REF 12:34
PROVIDERS: ATTEND Nurse Practitioner Family
DX: D64.9 Anemia, unspecified (principal); R20.0 Anesthesia of skin; Z13.9 Encounter for screening, unspecified; R42 Dizziness and giddiness; K59.09 Other constipation

== ENCOUNTER 2019-12-16 10:37 | Inpatient (IN) | payer MEDICAID, OTHER ==
[~2019-12-16] VITALS: Ht 172.7 cm; Wt 91.3 kg
[~2019-12-16 10:37] MED LIST changes: +AMLO1TAB24 PO; -AMLO5TAB6 PO
[2019-12-16 11:50] LABS: HEMATOCRIT 36.8 % (36.0-47.0); HEMOGLOBIN 12.3 g/dl (12.0-15.5); MEAN CORPUSCULAR HEMOGLOBIN 29.7 pg (27.0-33.0); MEAN CORPUSCULAR HGB CONC 33.4 g/dl (32.0-36.5); MEAN CORPUSCULAR VOLUME 88.9 fl (80.0-96.0); PLATELET COUNT, AUTOMATED 271 10^3/uL (150-450); RED BLOOD COUNT 4.14 10^6/uL (4.00-5.40); WHITE BLOOD COUNT 7.3 10^3/uL (4.0-10.0)
[2019-12-16 12:17] LABS: AMPHETAMINES LEVEL URINE NEGATIVE (NEGATIVE); BARBITURATES URINE NEGATIVE (NEGATIVE); BENZODIAZEPINES URINE NEGATIVE (NEGATIVE); CANNABINOIDS URINE NEGATIVE (NEGATIVE); COCAINE METABOLITE URINE NEGATIVE (NEGATIVE); METHADONE URINE NEGATIVE (NEGATIVE); OPIATES URINE NEGATIVE (NEGATIVE); PHENCYCLIDINE URINE NEGATIVE (NEGATIVE)
[2019-12-16 12:50] LABS: ACETAMINOPHEN LEVEL < 2.0 UG/ML (10.0-30.0); ALBUMIN 3.4 GM/DL (3.2-5.2); ALT/SGPT 23 U/L (12-78); BILIRUBIN,DIRECT 0.1 MG/DL (0.0-0.2); BILIRUBIN,TOTAL 0.3 MG/DL (0.2-1.0); BLOOD UREA NITROGEN 6 MG/DL (7-18); CALCIUM LEVEL 9.2 MG/DL (8.8-10.2); CARBON DIOXIDE LEVEL 32 MEQ/L (21-32); CHLORIDE LEVEL 105 MEQ/L (98-107); ETHYL ALCOHOL (ETHANOL) < 0.003 % (0.000-0.010); GLOMERULAR FILTRATION RATE > 60.0 (>45); GLUCOSE, FASTING 87 MG/DL (70-100); POTASSIUM SERUM 4.1 MEQ/L (3.5-5.1); SALICYLATE LEVEL < 1.7 MG/DL (5.0-30.0); SODIUM LEVEL 138 MEQ/L (136-145); THYROID STIMULATING HORMONE 0.706 uIU/ML (0.358-3.740); TOTAL PROTEIN 6.7 GM/DL (6.4-8.2)
[2019-12-16] MEDS ORDERED: NITROFURANTOIN (MACROBID) 100 MG CAP PO ONE (14:15)
[2019-12-16] MEDS ORDERED: ACETAMINOPHEN 500 MG TAB PO ONE (15:00)
[2019-12-16] MEDS ORDERED: REME30TA PO (17:19)
[2019-12-16] MEDS ORDERED: ARIS1.6I INJ (17:19)
[2019-12-16] MEDS ORDERED: HYDR1CAP25 PO (17:19)
[2019-12-16] MEDS ORDERED: BUSP1TAB PO (17:19)
[2019-12-16] MEDS ORDERED: FERR325T3 PO (17:19)
[2019-12-16] MEDS ORDERED: D 101000 PO (17:19)
[2019-12-16] MEDS ORDERED: MED REC COMMENT (17:26)
[2019-12-16] MEDS ORDERED: traZODone 50 MG TAB PO PRN (18:45)
[2019-12-16] MEDS ORDERED: MOM 30ML SUSPENSION UDC PO PRN (18:45)
[2019-12-16] MEDS ORDERED: MAALOX 30 ML SUSP *UDC PO PRN (18:45)
[2019-12-16] MEDS: ACETAMINOPHEN TAB 650MG DOSE (2X325MG) PO PRN (23:52)
[2019-12-16] MEDS: ATORVASTATIN 20 MG TAB PO SCH (23:59)
[2019-12-16] MEDS: levETIRAcetam 250MG TABLET (KEPPRA) PO SCH (23:59)
[2019-12-17 06:38] VITALS: BP 129/70
[2019-12-17] MEDS ORDERED: NICOTINE 21MG/24HR 1 EA TRANSDERMAL TD SCH (09:00)
[2019-12-17] MEDS: NITROFURANTOIN (MACROBID) 100 MG CAP PO SCH ×2 (09:00→21:00)
[2019-12-17] MEDS: CETIRIZINE (ZyrTEC) 10 MG TAB PO SCH (09:18)
[2019-12-17] MEDS: MONTELUKAST 10 MG TAB PO SCH (09:18)
[2019-12-17] MEDS: OMEPRAZOLE 20 MG CAP PO SCH (09:19)
[2019-12-17] MEDS: FOLIC ACID 1 MG TAB PO SCH (09:19)
[2019-12-17] MEDS: levETIRAcetam 250MG TABLET (KEPPRA) PO SCH ×4 (09:19→20:09)
[2019-12-17] MEDS: ACETAMINOPHEN TAB 650MG DOSE (2X325MG) PO PRN ×2 (09:21→16:12)
--- NOTE | 2019-12-17 11:46 | MHHPEPDOC ---
General Date Of Admission: Dec 16, 2019 Legal Status: 9.39 Chief Complaint Depression and Anxiety, states that she is "freaking out and scared of everything". Reports paranoid thinking. History of Present Illness HISTORY OF THE PRESENT ILLNESS: Patient is a 59 -year-old , female, who has a history of 4 other psychiatric admissions, last hospitalization at this hospital for IMHU was 09/15/2016. (Psychiatric Admissions: 02/10/16, 03/23/16, 09/05/16, and 09/14/16) She was under the service of Dr. Koenig's service with a diagnosis of Unspecified Depressive Disorder, Seizure Disorder, Asthma. On this occasion patient is reporting "freaking out and being scared of everything" Patient reports that yesterday in the morning she was very fearful and that she called her continuous pillowcase cutter, Margaux who subsequently called her counselor Catherine. Catherine called 911 and patient was transported to the Hospital. Patient reports that she has been feeling scared, depressed and anxious and can't relate to when this started. She also reports having poor concentration, poor focus, anxiety, having feelings of helplessness. Psychiatric Review of Systems Depression (2 or more weeks): depressed mood, anhedonia, difficulty concentrating, other (anxiety, helplessness, ) Dasia (4 or more days of): denies Psychosis: paranoia PTSD: denies Anxiety: gen/non-specific anxiety, situational anxiety Anxiety/ 6 months or more of: difficulty concentrating, irritability Past Psychiatric History Previous Psychiatric Diagnosis: Unspecified Depessive Disorder Previous Psychiatric Admissions: 4 other psychiatric admission (02/10/16, 03/23/16, 09/05/16, 09/14/16 and today's admission on 12/16/19 Suicide Attempts: History of ideation, no gestures or attempts Psychiatric Follow-up: Reports that she sees "Catherine at [facility]" Psychiatric medications: On past psychiatric admission, patient was on Lexapro 20, Trazodone 50 mg at HS and BuSpar 10 mg three times daily Past Medical History Medical Problems History of Seizures and Chronic Back Pain, Reports of Asthma history History of Right Foot Surgery, Patient cannot remember when this surgery occurred. Head Injury: No Seizures: Yes Hospitalizations: Yes Surgeries: Yes Family Medical/Psychiatric HX Medical Problems Brother with Schizophrenia Psychiatric Disorders: Yes Addiction: No Suicide Attemps/Completions: No Addiction History alcohol Social History Childhood: Born in [place], born to both parents she is one of 8 children, 2 brothers are . 2 brothers and 3 sisters are alive but she does not communicate with any Abuse/Trauma: Denies Current Living Situation: Currently lives alone with 2 cats. 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 Legal: History of detention, charged with 2nd degree assault and jailed x 3 weeks and given probation Marital: Single, no children Mental Status Examination General Appearance: disheveled, appears stated age, hospital scubs/clothing Build: average Demeanor: mistrustful, withdrawn, guarded Eye Contact: average Activity: slowed Behavior: cooperative, loss of interests, anhedonia Speech: slow, low in volume, impoverished Mood: depressed, anxious Affect: flat Thought Process: slow Thought Content (Delusions): paranoia Thought Content (Other): guarded Thought Content (Aggressive): none reported Perception (Hallucinations): none reported Perception (Other): none reported Cognition (Impairment of): none reported Cognition(Intelligence Est.): borderline Oriented: Oriented times three Insight: fair Judgment: Fair Psychosis: Denies Diagnoses Unspecified Depressive Disorder Anxiety Disorder A-FIB/CHADSVASC A-FIB History Current/History of A-Fib/PAF?: No Current PO Anticoag Therapy: No Age/Risk Factor Scoring CHADSVASC: CHADSVASC Response (Comments) Value Age Risk Factor Age < 65 years old 0 Gender Risk Factor Female 1 Hx of CHF No 0 Hx of HTN No 0 Hx of Stroke/TIA/or VTE No 0 Hx of Diabetes No 0 Hx of Vascular Disease No 0 Total 1 Treatment Treatment ordered: NONE Initial Treatment Plan 1. Patient was admitted on a [9.39] status. 2. Complete history was obtained. 3. With patients permission, family will be contacted and database will be expanded. 4. Patients medication regimen will be reviewed and changed accordingly. 5. Patient will be provided with protected environment. 6. Patient will be treated with individual, group, and milieu therapies. 7. Patient will receive supportive psych-education. 8. Discharge planning will commence immediately. 9. Outpatient follow-up treatment will be strongly recommended. 10. The initial treatment plan will focus initially on: * Depression. * Risk for suicide. ESTIMATED LENGTH OF STAY: - DAYS. TIME SPENT COUNSELING AND COORDINATING INITIAL CARE: minutes. Vital Signs Vital Signs Date Time Temp Pulse Resp B/P (MAP) Pulse Ox O2 Delivery O2 Flow Rate FiO2 12/17/19 06:38 96.7 61 18 129/70 (89) 96 Room Air Medications Scheduled Aripiprazole Lauroxil (Aristada) 662 Mg/2.4 Ml Suser.syr, 2 ML INJ QMONTH, (Reported) BRINGS TO CLINIC FOR NURSE TO ADMINISTER Atorvastatin Calcium (Atorvastatin Calcium) 20 Mg Tab, 20 MG PO QHS, (Reported) Cetirizine HCl (Cetirizine HCl) 10 Mg Tab, 10 MG PO QAM, (Reported) Cholecalciferol (Vitamin D3) (Vitamin D3) 25 Mcg Capsule, 25 MCG PO QAM, (Reported) Ferrous Sulfate (Ferrous Sulfate) 325 Mg Tablet.dr, 325 MG PO TID, (Reported) Folic Acid (Folic Acid) 1 Mg Tab, 1 MG PO QAM, (Reported) Hydroxyzine Pamoate (Hydroxyzine Pamoate) 25 Mg Capsule, 25 MCG PO BID, (Reported) Levetiracetam (Keppra) 250 Mg Tab, 250 MG PO QHS, (Reported) TAKES WITH 1000MG FOR 1250MG TOTAL QHS Levetiracetam (Keppra) 1,000 Mg Tab, 1,000 MG PO BID, (Reported) Montelukast Sodium (Montelukast Sodium) 10 Mg Tab, 10 MG PO QAM, (Reported) Omeprazole (Omeprazole) 20 Mg Cap, 20 MG PO QAM, (Reported) Miscellaneous Medications [Med Rec Comment] , (Reported) LIST OBTAINED FROM [facility] Allergies Coded Allergies: No Known Allergies (Unverified , 03/17/17) MAGDALENO SULLIVAN NP Dec 17, 2019 11:45
[2019-12-17] MEDS: OLANZapine ORAL DISINTEGRATING TAB 5MG PO PRN (12:26)
--- NOTE | 2019-12-17 14:06 | HPEPDOC ---
[facility] Medical History & Physical Date of Admission Dec 16, 2019 Date of Service: Dec 17, 2019 Attending Physician: ALYSA ORTIZ MD History and Physical CHIEF COMPLAINT: Depression and feeling unsafe HISTORY OF PRESENT ILLNESS: 59 yo W with a history of depression, lives alone with her 2 cats, who recently saw her therapist and told her that she feels increasingly panicky, depression and feels unsafe in her apartment. PAST MEDICAL HISTORY: 1. Seizure disorder. 2. Asthma. 3. Gastroesophageal reflux disease (GERD). 4. Megaloblastic anemia. 5. Dyslipidemia. 6. Depression. 7. Anxiety. 8. Vitamin D deficiency. 9. Insomnia. 10. Allergic rhinitis. 11. Chronic gastrointestinal symptoms and complaints. 12. Hyponatremia. 13. Neurogenic bladder. 14. Hiatal hernia. PAST SURGICAL HISTORY: 1. 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 2. Hysterectomy. 3. Colonoscopy times four. 4. Esophagogastroduodenoscopy done August of 2016. 5. Breast biopsy on the left and right, both benign. 6. Appendectomy. SOCIAL HISTORY: She is . She smokes one pack of cigarettes per day. She does not use recreational drugs. Lives alone in an apartment with her cats REVIEW OF SYSTEMS: 10-system review was done. She was complaining of urgency and was given macrobid for positive UA in the ED yesterday. She also reported some back pain responsive to ibuprofen. No hematuria, dysuria or frequency. LABORATORY STUDIES: CBC was normal. BMP was normal. Toxicology screen was negative. UA had 3+ leuk esterase and TNTC WBC and has a pending urine culture PHYSICAL EXAMINATION: General: NAD HEENT: Pupils equal and react to light. Extraocular muscles intact. Cornea and sclerae clear. Conjunctivae were normal. No facial asymmetry. Pharynx, tongue and gums pink and moist. Tongue is midline. Neck: supple without lymphadenopathy. No thyromegaly noted Pulm: Chest clear to auscultation without wheeze or crackles Cardiac: RRR, no mrg Abdomen: Bowel sounds positive and normoactive, NTND Extremities: WWP, no LE edema, with 2+ peripheral pulses Neuro: CN 2-12 intact, normal gait Psych: AOx3, depressed mood, flat affect IMPRESSION/PLAN: 1. Depression: -per primary psychiatric team 2. UTI -macrobid 100mg BID for a total of 7d to complete 12/22 -will f/u UCx for sensitivities 3. Seizure disorder, stable. -continue home Keppra 4. History of asthma, stable. -continue home montelukast 5. Hyperlipidemia. -Continue home statin 6.History of anemia -continue home ferrous sulfate 7. GERD -continue home omeprazole DVT ppx: ambulatory Thank you for the consult. Medicine will sign off at this time. Vital Signs Vital Signs Date Time Temp Pulse Resp B/P (MAP) Pulse Ox O2 Delivery O2 Flow Rate FiO2 12/17/19 06:38 96.7 61 18 129/70 (89) 96 Room Air Laboratory Data Microbiology Microbiology 12/16/19 Urine Culture, Received Pending Home Medications Scheduled Aripiprazole Lauroxil (Aristada) 662 Mg/2.4 Ml Suser.syr, 2 ML INJ QMONTH BRINGS TO CLINIC FOR NURSE TO ADMINISTER Atorvastatin Calcium (Atorvastatin Calcium) 20 Mg Tab, 20 MG PO QHS Cetirizine HCl (Cetirizine HCl) 10 Mg Tab, 10 MG PO QAM Cholecalciferol (Vitamin D3) (Vitamin D3) 25 Mcg Capsule, 25 MCG PO QAM Ferrous Sulfate (Ferrous Sulfate) 325 Mg Tablet.dr, 325 MG PO TID Folic Acid (Folic Acid) 1 Mg Tab, 1 MG PO QAM Hydroxyzine Pamoate (Hydroxyzine Pamoate) 25 Mg Capsule, 25 MCG PO BID Levetiracetam (Keppra) 250 Mg Tab, 250 MG PO QHS TAKES WITH 1000MG FOR 1250MG TOTAL QHS Levetiracetam (Keppra) 1,000 Mg Tab, 1,000 MG PO BID Montelukast Sodium (Montelukast Sodium) 10 Mg Tab, 10 MG PO QAM Omeprazole (Omeprazole) 20 Mg Cap, 20 MG PO QAM Miscellaneous Medications [Med Rec Comment] LIST OBTAINED FROM [facility] Allergies Coded Allergies: No Known Allergies (Unverified , 03/17/17) A-FIB/CHADSVASC A-FIB History Current/History of A-Fib/PAF?: No Current PO Anticoag Therapy: No Age/Risk Factor Scoring CHADSVASC: CHADSVASC Response (Comments) Value Age Risk Factor Age < 65 years old 0 Gender Risk Factor Female 1 Hx of CHF No 0 Hx of HTN No 0 Hx of Stroke/TIA/or VTE No 0 Hx of Diabetes No 0 Hx of Vascular Disease No 0 Total 1 ALYSA ORTIZ MD Dec 17, 2019 13:54
[2019-12-17] MEDS: SERTRALINE HCL 25 MG TABLET PO SCH (16:11)
[2019-12-17] MEDS: busPIRone 5 MG TAB PO SCH ×2 (16:12→20:09)
[2019-12-17] MEDS: hydrOXYzine 50 MG TAB PO SCH ×2 (16:12→23:00)
[2019-12-17 19:21] VITALS: BP 117/60
[2019-12-17] MEDS: ATORVASTATIN 20 MG TAB PO SCH (20:09)
[2019-12-17] MEDS ORDERED: NITROFURANTOIN (MACROBID) 100 MG CAP PO SCH (21:00)
[2019-12-18] MEDS: hydrOXYzine 50 MG TAB PO SCH ×4 (00:23→23:00)
[2019-12-18] MEDS: ACETAMINOPHEN TAB 650MG DOSE (2X325MG) PO PRN ×3 (00:23→19:04)
[2019-12-18 06:32] VITALS: BP 122/68
[2019-12-18] MEDS: FOLIC ACID 1 MG TAB PO SCH (09:37)
[2019-12-18] MEDS: busPIRone 5 MG TAB PO SCH ×3 (09:37→20:32)
[2019-12-18] MEDS: OMEPRAZOLE 20 MG CAP PO SCH (09:38)
[2019-12-18] MEDS: SERTRALINE HCL 25 MG TABLET PO SCH (09:38)
[2019-12-18] MEDS: CETIRIZINE (ZyrTEC) 10 MG TAB PO SCH (09:38)
[2019-12-18] MEDS: levETIRAcetam 250MG TABLET (KEPPRA) PO SCH ×3 (09:38→20:33)
[2019-12-18] MEDS: MONTELUKAST 10 MG TAB PO SCH (09:38)
[2019-12-18] MEDS: NITROFURANTOIN (MACROBID) 100 MG CAP PO SCH ×2 (10:58→20:32)
[2019-12-18] MEDS: ATORVASTATIN 20 MG TAB PO SCH (20:32)
[2019-12-18] MEDS: OLANZapine ORAL DISINTEGRATING TAB 5MG PO PRN (21:29)
[2019-12-19 06:46] VITALS: BP 146/68
[2019-12-19] MEDS: hydrOXYzine 50 MG TAB PO SCH ×2 (06:46→15:50)
[2019-12-19] MEDS: MONTELUKAST 10 MG TAB PO SCH (08:32)
[2019-12-19] MEDS: CETIRIZINE (ZyrTEC) 10 MG TAB PO SCH (08:32)
[2019-12-19] MEDS: levETIRAcetam 250MG TABLET (KEPPRA) PO SCH ×3 (08:33→20:47)
[2019-12-19] MEDS: NITROFURANTOIN (MACROBID) 100 MG CAP PO SCH ×2 (08:34→20:41)
[2019-12-19] MEDS: FOLIC ACID 1 MG TAB PO SCH (08:34)
[2019-12-19] MEDS: busPIRone 5 MG TAB PO SCH ×3 (08:34→20:41)
[2019-12-19] MEDS: SERTRALINE HCL 25 MG TABLET PO SCH (08:34)
[2019-12-19] MEDS: ACETAMINOPHEN TAB 650MG DOSE (2X325MG) PO PRN ×2 (08:35→15:51)
[2019-12-19] MEDS: OMEPRAZOLE 20 MG CAP PO SCH (08:35)
[2019-12-19] MEDS: IBUPROFEN 400 MG TAB PO PRN ×2 (12:36→20:42)
--- NOTE | 2019-12-19 16:18 | MHIPN ---
DATE: 12/18/2019 VITAL SIGNS: Blood pressure 122/68, pulse 55, temperature 96.9. CHIEF COMPLAINT: Feels anxious. OBJECTIVE: Seen for follow-up, in the presence of staff. Says she has been feeling anxious, particularly when around other people. Sleep is fair. Moods are mostly related to anxiety. Vague on suicidal thoughts. Denies any thoughts of harming herself. Denies any auditory hallucinations. MENTAL STATUS EXAM: She is neat. She is a bit guarded, but generally cooperative. She is seen in the presence of staff. No agitation, possible psychomotor retardation. She is vague on suicidal thoughts at present, no plans. No homicidal ideas or intents. She does not appear to be internally preoccupied. Cognition grossly intact. Judgment is questionable, as is insight. ASSESSMENT: 1. Other specified anxiety disorder. 2. Rule out generalized anxiety disorder. 3. Other specified depressive disorder. PLAN: Continue current care including the Buspirone, Hydroxyzine, Sertraline. Will need to consider increasing the Sertraline to help address her current state. Encouraged participation in activities on the unit. She will also need an increase in the Buspirone. CARLEEN
[2019-12-19 18:53] VITALS: BP 114/57
[2019-12-19] MEDS: ATORVASTATIN 20 MG TAB PO SCH (20:41)
[2019-12-20] MEDS: hydrOXYzine 50 MG TAB PO SCH ×3 (06:01→23:00)
[2019-12-20 06:36] VITALS: BP 142/78
[2019-12-20] MEDS ORDERED: SERTRALINE HCL 50 MG TAB PO ONE (09:00)
[2019-12-20] MEDS: OMEPRAZOLE 20 MG CAP PO SCH (09:06)
[2019-12-20] MEDS: NITROFURANTOIN (MACROBID) 100 MG CAP PO SCH ×2 (09:06→20:56)
[2019-12-20] MEDS: busPIRone 5 MG TAB PO SCH ×3 (09:07→20:56)
[2019-12-20] MEDS: FOLIC ACID 1 MG TAB PO SCH (09:07)
[2019-12-20] MEDS: levETIRAcetam 250MG TABLET (KEPPRA) PO SCH ×3 (09:07→20:55)
[2019-12-20] MEDS: CETIRIZINE (ZyrTEC) 10 MG TAB PO SCH (09:07)
[2019-12-20] MEDS: MONTELUKAST 10 MG TAB PO SCH (09:07)
[2019-12-20] MEDS: ACETAMINOPHEN TAB 650MG DOSE (2X325MG) PO PRN (09:09)
--- NOTE | 2019-12-20 09:31 | MHIPNPDOC ---
[facility] Progress Note Progress Note DATE OF SERVICE: 12/20/19 HISTORY: Patient is a 59 year old female who had reported feeling anxious, feelings of paranoia of other people. VITAL SIGNS: See below. NEW TEST RESULTS: CURRENT MEDICATIONS: See below. MENTAL STATUS EXAMINATION: Patient is a 59-year old female, who is reporting paranoid thoughts, depression and anxiety. Speech: Is slow rate, low tone and monosyllabic Language skills are below average Thought processes including: slow, blocked at times Thought content: Reports feelings of depression and anxiety . Abstract reasoning, and computation: poor. Description of associations: paranoid thoughts about peers Description of abnormal or psychotic thoughts: Paranoid thoughts, "feeling scared" Judgment: limited Insight: limited Orientation: alert and oriented Recent and remote memory: limited, states "I can't remember" Attention span and concentration: poor Language: Average Fund of knowledge: Below average Mood: Depressed/Flat. Affect: Flat DIAGNOSES: 1. Schizoaffective Disorder r/o 2. Unspecified Depressive Disorder ASSESSMENT: Yesterday patient reports that she stayed in bed reporting back pain and that she was afraid of people. "I don't make any sense today." States that there is too much commotion going on today for her. She denies suicidality. Reports feelings of depression and anxiety. "I keep fading in and fading out because of epilepsy, I am not nuts or anything like that." Patient complains of back pain. Complains about no privacy in her room. Patient states, "I am scared." "Everything bothers me, my can't take my back pain, I can't be in big crowds, I am worried about my cats, I keep fading and fading out, I know it's a holiday it's Labor Day a holiday weekend, I am getting scared and getting stiffen up again." Patient is very flat affected. She appears to not be motivated to identifying her barriers for discharge, but patient is intellectually disabled, has symptoms of Schizoaffective Disorder; . She states she worries about her cats and not sure if she knows any numbers to call anyone to care for them. We will call her case assembler tomorrow (today is a holiday and not one would be around) MANAGEMENT PLAN: Continue medication regimen. We will discharge patient when she is stable. Patient refused offer of topical back pain cream. TIME SPENT: 20 minutes. Vital Signs Vital Signs Date Time Temp Pulse Resp B/P (MAP) Pulse Ox O2 Delivery O2 Flow Rate FiO2 12/20/19 06:36 96.6 69 18 142/78 (99) Room Air 12/17/19 06:38 96 Current Medications Current Medications Medications (Trade) Dose Ordered Sig/Irta Route PRN Reason Start Time Stop Time Status Last Admin Dose Admin Acetaminophen (Tylenol Tab) 650 mg Q6HP PRN PO HEADACHE or DISCOMFORT 12/16/19 18:45 12/20/19 09:09 Al Hydrox/Mg Hydrox/Simethicone (Mylanta) 30 ml Q4HP PRN PO HEARTBURN/INDIGESTION 12/16/19 18:45 Atorvastatin Calcium (Lipitor) 20 mg QHS PO 12/16/19 21:00 12/19/19 20:41 Buspirone HCl (Buspar) 5 mg TID PO 12/17/19 16:00 12/20/19 09:07 Cetirizine HCl (ZyrTEC) 10 mg QAM PO 12/17/19 09:00 12/20/19 09:07 Folic Acid (Folic Acid) 1 mg QAM PO 12/17/19 09:00 12/20/19 09:07 Home Med (Med Rec Complete!) ASDIRECTED XX 12/16/19 17:30 12/16/19 17:29 DC Hydroxyzine HCl (Atarax) 50 mg Q8H PO 12/17/19 15:00 12/19/19 15:50 Ibuprofen (Advil) 400 mg Q8HP PRN PO PAIN 12/19/19 12:30 12/21/19 12:30 12/19/19 20:42 Levetiracetam (Keppra) 250 mg QHS PO 12/16/19 21:00 12/19/19 20:47 Levetiracetam (Keppra) 1,000 mg BID PO 12/16/19 21:00 12/20/19 09:07 Magnesium Hydroxide (Milk Of Magnesia) 30 ml DAILYPRN PRN PO CONSTIPATION 12/16/19 18:45 Montelukast Sodium (Singulair) 10 mg QAM PO 12/17/19 09:00 12/20/19 09:07 Nicotine (Nicoderm Cq 21mg) 1 patch DAILY TD 12/17/19 09:00 Cancel Nitrofurantoin Monoh/Nitrofur Macro (Macrobid) 100 mg BID PO 12/17/19 09:00 12/20/19 09:06 Nitrofurantoin Monoh/Nitrofur Macro (Macrobid) 100 mg BID PO 12/17/19 21:00 12/17/19 14:07 DC Olanzapine (ZyPREXA ZYDIS) 5 mg Q6HP PRN PO AGITATION/anxiety 12/16/19 18:45 12/18/19 21:29 Omeprazole (PriLOSEC) 20 mg QAM PO 12/17/19 09:00 12/20/19 09:06 Sertraline HCl (Zoloft) 25 mg DAILY PO 12/17/19 09:00 12/19/19 12:34 DC 12/19/19 08:34 Trazodone HCl (Desyrel) 50 mg QHSP PRN PO INSOMNIA 12/16/19 18:45 12/19/19 20:42 Allergies Coded Allergies: No Known Allergies (Unverified , 03/17/17) MAGDALENO SULLIVAN NP Dec 20, 2019 09:31
[2019-12-20] MEDS: IBUPROFEN 400 MG TAB PO PRN (15:06)
[2019-12-20 18:05] VITALS: BP 120/57
[2019-12-20] MEDS: ATORVASTATIN 20 MG TAB PO SCH (20:56)
[2019-12-21 06:26] VITALS: BP 147/76
[2019-12-21] MEDS: hydrOXYzine 50 MG TAB PO SCH ×3 (07:04→22:47)
[2019-12-21] MEDS: MONTELUKAST 10 MG TAB PO SCH (08:17)
[2019-12-21] MEDS: OLANZapine ORAL DISINTEGRATING TAB 5MG PO PRN (08:19)
[2019-12-21] MEDS: FOLIC ACID 1 MG TAB PO SCH (08:22)
[2019-12-21] MEDS: busPIRone 5 MG TAB PO SCH ×3 (08:24→22:47)
[2019-12-21] MEDS: CETIRIZINE (ZyrTEC) 10 MG TAB PO SCH (08:25)
[2019-12-21] MEDS: NITROFURANTOIN (MACROBID) 100 MG CAP PO SCH ×2 (09:00→22:47)
[2019-12-21] MEDS: OMEPRAZOLE 20 MG CAP PO SCH (09:00)
[2019-12-21] MEDS: levETIRAcetam 250MG TABLET (KEPPRA) PO SCH ×3 (09:00→22:47)
--- NOTE | 2019-12-21 11:14 | MHIPNPDOC ---
[facility] Progress Note Progress Note DATE OF SERVICE: 12/21/19 HISTORY: Patient is a 59 year old Female who had reported to her shoe caser that she was feeling afraid. Patient has had multiple psychiatric hosp italizations including a family history of mental illness. She reports that her paranoia stems from feeling that she is afraid to be by herself, but complains about being around crowds of people. VITAL SIGNS: See below. NEW TEST RESULTS: CURRENT MEDICATIONS: See below. MENTAL STATUS EXAMINATION: Patient is a 59 -year old female, who is reporting paranoid thoughts, depression and anxiety. She appears older than her stated age. She wears dentures which she fidget with in her mouth pushing into place with her tongue and then allowing it to fall onto her tongue and repeating this process throughout the interview. She has fair hygiene and grooming. She has a staring eye contact. Speech: Is slow, low and slow lino Language skills are fiar Thought processes including: linear. slowed and mildly blocked Thought content: Depression, Anxiety, Paranoid thoughts Abstract reasoning, and computation: Fair Description of associations: Paranoid thoughts about other people Description of abnormal or psychotic thoughts: Fear of being social, paranoid Judgment: Fair Insight: Fair Orientation: alert and oriented Recent and remote memory: at times poor Attention span and concentration: poor Language: fair Fund of knowledge: Below average Mood: Anxious, Worried Affect: Blunted/Flat DIAGNOSES: 1. Schizoaffective Disorder ASSESSMENT: Patient states that he medications make her feel in and out. She states "I'm in and out, one minute I am here and the next minute I am not here." Complains of losing focus. States that she is forgetful. Reports that she turns around and doesn't know what she was going to do next. Reports feeling anxious more than depression. Rates depression /. Anxiety rates /. Fearfulness of people and situations /. Reports Paranoid thoughts for at least a year. "Everybody can see my face and know that I am scared to " Patient reports paranoid thoughts and fear. Her affect is Very Flat and there is no change in her affect to denote fear, irritation, happiness or contentment. MANAGEMENT PLAN: Patient is reporting that she is not safe to be discharged. Possible discharge in 3-5 days. Patient is worried about her cats. TIME SPENT: 20 minutes. Vital Signs Vital Signs Date Time Temp Pulse Resp B/P (MAP) Pulse Ox O2 Delivery O2 Flow Rate FiO2 12/21/19 06:26 98.5 74 16 147/76 (99) 98 Room Air Current Medications Current Medications Medications (Trade) Dose Ordered Sig/Rita Route PRN Reason Start Time Stop Time Status Last Admin Dose Admin Acetaminophen (Tylenol Tab) 650 mg Q6HP PRN PO HEADACHE or DISCOMFORT 12/16/19 18:45 12/20/19 09:09 Al Hydrox/Mg Hydrox/Simethicone (Mylanta) 30 ml Q4HP PRN PO HEARTBURN/INDIGESTION 12/16/19 18:45 Atorvastatin Calcium (Lipitor) 20 mg QHS PO 12/16/19 21:00 12/20/19 20:56 Buspirone HCl (Buspar) 5 mg TID PO 12/17/19 16:00 12/21/19 08:24 Cetirizine HCl (ZyrTEC) 10 mg QAM PO 12/17/19 09:00 12/21/19 08:25 Folic Acid (Folic Acid) 1 mg QAM PO 12/17/19 09:00 12/21/19 08:22 Home Med (Med Rec Complete!) ASDIRECTED XX 12/16/19 17:30 12/16/19 17:29 DC Hydroxyzine HCl (Atarax) 50 mg Q8H PO 12/17/19 15:00 12/21/19 07:04 Ibuprofen (Advil) 400 mg Q8HP PRN PO PAIN 12/19/19 12:30 12/21/19 12:30 12/20/19 15:06 Levetiracetam (Keppra) 250 mg QHS PO 12/16/19 21:00 12/20/19 20:55 Levetiracetam (Keppra) 1,000 mg BID PO 12/16/19 21:00 12/21/19 09:00 Magnesium Hydroxide (Milk Of Magnesia) 30 ml DAILYPRN PRN PO CONSTIPATION 12/16/19 18:45 Montelukast Sodium (Singulair) 10 mg QAM PO 12/17/19 09:00 12/21/19 08:17 Nicotine (Nicoderm Cq 21mg) 1 patch DAILY TD 12/17/19 09:00 Cancel Nitrofurantoin Monoh/Nitrofur Macro (Macrobid) 100 mg BID PO 12/17/19 09:00 12/23/19 21:01 12/21/19 09:00 Nitrofurantoin Monoh/Nitrofur Macro (Macrobid) 100 mg BID PO 12/17/19 21:00 12/17/19 14:07 DC Olanzapine (ZyPREXA ZYDIS) 5 mg Q6HP PRN PO AGITATION/anxiety 12/16/19 18:45 12/21/19 08:19 Omeprazole (PriLOSEC) 20 mg QAM PO 12/17/19 09:00 12/21/19 09:00 Sertraline HCl (Zoloft) 25 mg DAILY PO 12/17/19 09:00 12/19/19 12:34 DC 12/19/19 08:34 Trazodone HCl (Desyrel) 50 mg QHSP PRN PO INSOMNIA 12/16/19 18:45 12/19/19 20:42 Allergies Coded Allergies: No Known Allergies (Unverified , 03/17/17) MAGDALENO SULLIVAN STRIKE OPERATIONS OFFICER Dec 21, 2019 11:14
--- NOTE | 2019-12-21 11:54 | MHIPN ---
DATE: 12/19/2019 VITAL SIGNS: Blood pressure 146/68, pulse 52, temperature 97.8. CHIEF COMPLAINT: Feels anxious. OBJECTIVE: Seen in follow-up. Indicates she has been feeling anxious. Says anxieties have gone up as her roommate has had difficulties, and verbal altercation her roommate has had with another patient. Sleep is fair. Appetite is a bit diminished. Stays in her room mostly, remains anxious about mingling within the unit. MENTAL STATUS EXAMINATION: She wears a mask. She is cooperative. Somewhat less guarded. She is coherent. No agitation. Affect restricted, but reactive. Denies active suicidal thoughts, intents. No homicidal ideas or intents. Currently no evidence of any psychosis. Cognition overall grossly intact. Judgment fair as is insight. ASSESSMENT: 1. Generalized anxiety disorder. 2. Other specified depressive disorder. PLAN: Continue current care, observations. Encouragement in participation in activities in the unit. Will continue with Buspirone 5 mg three times a day, looking at increasing it as well. Look at increasing the Sertraline. Further recommendations will be made depending on the clinical picture. CARLEEN
[2019-12-21] MEDS: ACETAMINOPHEN TAB 650MG DOSE (2X325MG) PO PRN (15:26)
[2019-12-21 18:00] VITALS: BP 130/81
[2019-12-21] MEDS: ATORVASTATIN 20 MG TAB PO SCH (22:47)
[2019-12-22 05:27] VITALS: BP 137/80
[2019-12-22] MEDS: hydrOXYzine 50 MG TAB PO SCH ×3 (06:22→23:00)
[2019-12-22] MEDS ORDERED: LIDOCAINE 5% (LIDODERM) PATCH TD SCH (09:00)
[2019-12-22] MEDS: busPIRone 5 MG TAB PO SCH ×3 (09:37→21:41)
[2019-12-22] MEDS: FOLIC ACID 1 MG TAB PO SCH (09:38)
[2019-12-22] MEDS: MONTELUKAST 10 MG TAB PO SCH (09:38)
[2019-12-22] MEDS: levETIRAcetam 250MG TABLET (KEPPRA) PO SCH ×3 (09:38→21:41)
[2019-12-22] MEDS: OMEPRAZOLE 20 MG CAP PO SCH (09:38)
[2019-12-22] MEDS: NITROFURANTOIN (MACROBID) 100 MG CAP PO SCH (09:38)
[2019-12-22] MEDS: CETIRIZINE (ZyrTEC) 10 MG TAB PO SCH (09:38)
--- NOTE | 2019-12-22 11:22 | MHIPNPDOC ---
[facility] Progress Note Progress Note ATE OF SERVICE: 12/22/19 HISTORY: Patient is a 59 year old female who comes to [facility] with complaints of being afraid and paranoid of her surroundings and other people. VITAL SIGNS: See below. NEW TEST RESULTS: . CURRENT MEDICATIONS: See below. MENTAL STATUS EXAMINATION: Patient is a 59-year old female, who is reporting anxiety, paranoid thoughts and depression due to feelings of being scared all the time. She appears older than her stated age. Hygiene and grooming is fair. She is wearing hospital scrub top and bottom. She has psychomotor retardation and has difficulty walking due to back pain. She reports that her back pain is severe today, reported that she had back pain that started last week prior to coming into the hospital. She is calm and cooperative in the interview, eye contact is staring. Speech: Is Spontaneous, soft, slow, monosyllabic Language skills are below average Thought processes including: slowed Thought content: she reports paranoid thoughts, depression and anxiety, denies suicidal/homicidal ideation. Abstract reasoning, and computation: below average. Description of associations: reports being afraid of people. States that she is paranoid about the sitter in the room watching her room mate and that makes her uncomfortable but then stated that she feels she needs to be watched because she feels her medications are making her more scared. Description of abnormal or psychotic thoughts: Paranoid of others Judgment: limited Insight: limited Orientation: alert and oriented to person, place and time Recent and remote memory: has some difficulty remembering, sometimes is a poor historian Attention span and concentration: poor Language: below average Fund of knowledge: below average Mood: Anxious, worried, depressed Affect: FLAT DIAGNOSES: 1.Schizoaffective Disorder 2. Anxiety disorder ASSESSMENT: Patient states, "I am scared, I am worried about my cats." she reports that she has back pain and that her back, has difficulty standing up, reports that her back is swollen. Patient denies that she fell during hospitalization, pain started last week before she came into the hospital. States that it is sharp pain in the lower back, radiating to her left leg. Has difficulty walking and has pain during ambulation. Needed some assistance with standing from bed to stand, observed with severe facial grimacing and tearfulness during sit to stand and at times during ambulation. Call to Hospitalist to see patient. Patient asked to return to her room to lie back down. MANAGEMENT PLAN: Patient states she is not stable, continues to complaint about paranoid thoughts TIME SPENT: 20 minutes. Vital Signs Vital Signs Date Time Temp Pulse Resp B/P (MAP) Pulse Ox O2 Delivery O2 Flow Rate FiO2 12/22/19 05:27 97.8 62 14 137/80 (99) Room Air 12/21/19 06:26 98 Current Medications Current Medications Medications (Trade) Dose Ordered Sig/Rita Route PRN Reason Start Time Stop Time Status Last Admin Dose Admin Acetaminophen (Tylenol Tab) 650 mg Q6HP PRN PO HEADACHE or DISCOMFORT 12/16/19 18:45 12/21/19 15:26 Al Hydrox/Mg Hydrox/Simethicone (Mylanta) 30 ml Q4HP PRN PO HEARTBURN/INDIGESTION 12/16/19 18:45 Atorvastatin Calcium (Lipitor) 20 mg QHS PO 12/16/19 21:00 12/21/19 22:47 Buspirone HCl (Buspar) 5 mg TID PO 12/17/19 16:00 12/22/19 09:37 Cetirizine HCl (ZyrTEC) 10 mg QAM PO 12/17/19 09:00 12/22/19 09:38 Folic Acid (Folic Acid) 1 mg QAM PO 12/17/19 09:00 12/22/19 09:38 Home Med (Med Rec Complete!) ASDIRECTED XX 12/16/19 17:30 12/16/19 17:29 DC Hydroxyzine HCl (Atarax) 50 mg Q8H PO 12/17/19 15:00 12/22/19 06:22 Ibuprofen (Advil) 400 mg Q8HP PRN PO PAIN 12/19/19 12:30 12/21/19 12:30 DC 12/20/19 15:06 Levetiracetam (Keppra) 250 mg QHS PO 12/16/19 21:00 12/21/19 22:47 Levetiracetam (Keppra) 1,000 mg BID PO 12/16/19 21:00 12/22/19 09:38 Magnesium Hydroxide (Milk Of Magnesia) 30 ml DAILYPRN PRN PO CONSTIPATION 12/16/19 18:45 Montelukast Sodium (Singulair) 10 mg QAM PO 12/17/19 09:00 12/22/19 09:38 Nicotine (Nicoderm Cq 21mg) 1 patch DAILY TD 12/17/19 09:00 Cancel Nitrofurantoin Monoh/Nitrofur Macro (Macrobid) 100 mg BID PO 12/17/19 09:00 12/23/19 21:01 12/22/19 09:38 Nitrofurantoin Monoh/Nitrofur Macro (Macrobid) 100 mg BID PO 12/17/19 21:00 12/17/19 14:07 DC Olanzapine (ZyPREXA ZYDIS) 5 mg Q6HP PRN PO AGITATION/anxiety 12/16/19 18:45 12/21/19 08:19 Omeprazole (PriLOSEC) 20 mg QAM PO 12/17/19 09:00 12/22/19 09:38 Sertraline HCl (Zoloft) 25 mg DAILY PO 12/17/19 09:00 12/19/19 12:34 DC 12/19/19 08:34 Trazodone HCl (Desyrel) 50 mg QHSP PRN PO INSOMNIA 12/16/19 18:45 12/19/19 20:42 Allergies Coded Allergies: No Known Allergies (Unverified , 03/17/17) MAGDALENO SULLIVAN NP Dec 22, 2019 11:22
[2019-12-22 11:59] VITALS: BP 137/80
[2019-12-22] MEDS: ACETAMINOPHEN TAB 650MG DOSE (2X325MG) PO PRN (12:30)
[2019-12-22] MEDS ORDERED: IBUPROFEN 600MG TAB PO PRN (15:00)
--- NOTE | 2019-12-22 15:32 | HPEPDOC ---
[facility] Medical History & Physical Date of Admission Dec 17, 2019 Date of Service: Dec 22, 2019 Attending Physician: ALYSA ORTIZ MD History and Physical MEDICINE RECONSULT NOTE CHIEF MEDICAL COMPLAINT: Back pain HISTORY OF PRESENT ILLNESS: 59 yo W with a history of depression who is admitted to the [facility] for depression and recently found to have a sibley-sensitive E.coli UTI for which I originally I placed her on macrobid, for whom internal medicine is now reconsulted for mid lumbar vs. left flank pain c/f chronic MSK vs. pyelonephritis. PAST MEDICAL HISTORY: 1. Seizure disorder. 2. Asthma. 3. Gastroesophageal reflux disease (GERD). 4. Megaloblastic anemia. 5. Dyslipidemia. 6. Depression. 7. Anxiety. 8. Vitamin D deficiency. 9. Insomnia. 10. Allergic rhinitis. 11. Chronic gastrointestinal symptoms and complaints. 12. Hyponatremia. 13. Neurogenic bladder. 14. Hiatal hernia. PAST SURGICAL HISTORY: 1. 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 2. Hysterectomy. 3. Colonoscopy times four. 4. Esophagogastroduodenoscopy done August of 2016. 5. Breast biopsy on the left and right, both benign. 6. Appendectomy. SOCIAL HISTORY: She is . She smokes one pack of cigarettes per day. She does not use recreational drugs. Lives alone in an apartment with her cats REVIEW OF SYSTEMS: 10-system review was done and notable for lumbar back pain vs. flank pain? and dysuria. Otherwise has no other physical complaints at this time. No hematuria, dysuria or frequency. LABORATORY STUDIES: CBC was normal. BMP was normal. Toxicology screen was negative. UA had 3+ leuk esterase and TNTC WBC and UCx showed a pansensitive UTI. PHYSICAL EXAMINATION: General: NAD HEENT: NCAT, PERRLA, EOMI, MMM Neck: supple without lymphadenopathy. Pulm: Chest clear to auscultation without wheeze or crackles Cardiac: RRR, no mrg Abdomen: Bowel sounds positive and normoactive, NTND, lumbar back pain and L flank pain on palpation Extremities: WWP, no LE edema, with 2+ peripheral pulses Neuro: CN 2-12 intact, normal gait Psych: AOx3, depressed mood, flat affect IMPRESSION/PLAN: 1. Depression: -per primary psychiatric team 2. UTI with worsening lumbar back pain that on exam c/f pyelonephritis -Discontinue macrobid 100mg BID for UTI and switch to keflex 500mg QID for poss ible pyelo for 7d 3.Acute on chronic back pain -Lumbar XR -diclofenac patches instead of lidocaine patch for lumbar back. -Tylenol PRN 4. Seizure disorder, stable. -continue home Keppra 5. History of asthma, stable. -continue home montelukast 6. Hyperlipidemia. -Continue home statin 7.History of anemia -continue home ferrous sulfate 8. GERD -continue home omeprazole DVT ppx: ambulatory Thank you for the consult. Medicine will sign off at this time. Vital Signs Vital Signs Date Time Temp Pulse Resp B/P (MAP) Pulse Ox O2 Delivery O2 Flow Rate FiO2 12/22/19 05:27 97.8 62 14 137/80 (99) Room Air 12/21/19 06:26 98 Laboratory Data Microbiology Microbiology 12/16/19 Urine Culture - Final, Complete Escherichia Coli Home Medications Scheduled Aripiprazole Lauroxil (Aristada) 662 Mg/2.4 Ml Suser.syr, 2 ML INJ QMONTH BRINGS TO CLINIC FOR NURSE TO ADMINISTER Atorvastatin Calcium (Atorvastatin Calcium) 20 Mg Tab, 20 MG PO QHS Cetirizine HCl (Cetirizine HCl) 10 Mg Tab, 10 MG PO QAM Cholecalciferol (Vitamin D3) (Vitamin D3) 25 Mcg Capsule, 25 MCG PO QAM Ferrous Sulfate (Ferrous Sulfate) 325 Mg Tablet.dr, 325 MG PO TID Folic Acid (Folic Acid) 1 Mg Tab, 1 MG PO QAM Hydroxyzine Pamoate (Hydroxyzine Pamoate) 25 Mg Capsule, 25 MCG PO BID Levetiracetam (Keppra) 250 Mg Tab, 250 MG PO QHS TAKES WITH 1000MG FOR 1250MG TOTAL QHS Levetiracetam (Keppra) 1,000 Mg Tab, 1,000 MG PO BID Montelukast Sodium (Montelukast Sodium) 10 Mg Tab, 10 MG PO QAM Omeprazole (Omeprazole) 20 Mg Cap, 20 MG PO QAM Miscellaneous Medications [Med Rec Comment] LIST OBTAINED FROM [facility] Allergies Coded Allergies: No Known Allergies (Unverified , 03/17/17) A-FIB/CHADSVASC A-FIB History Current/History of A-Fib/PAF?: No Current PO Anticoag Therapy: No Age/Risk Factor Scoring CHADSVASC: CHADSVASC Response (Comments) Value Age Risk Factor Age < 65 years old 0 Gender Risk Factor Female 1 Hx of CHF No 0 Hx of HTN No 0 Hx of Stroke/TIA/or VTE No 0 Hx of Diabetes No 0 Hx of Vascular Disease No 0 Total 1 ALYSA ORTIZ MD Dec 22, 2019 15:05
[2019-12-22] MEDS ORDERED: DICLOFENAC EPOLAMINE 1.3 % PATCH TOP ONE (16:00)
[2019-12-22] MEDS: CEPHALEXIN 500 MG CAP PO SCH ×2 (16:25→21:41)
[2019-12-22 18:43] VITALS: BP 136/76
[2019-12-22] MEDS ORDERED: **NOTE PATIENT COMMENT** MISC XX SCH (21:00)
[2019-12-22] MEDS: DICLOFENAC EPOLAMINE 1.3 % PATCH TOP SCH (21:00)
[2019-12-22] MEDS: ATORVASTATIN 20 MG TAB PO SCH (21:41)
[2019-12-23] MEDS: hydrOXYzine 50 MG TAB PO SCH ×3 (06:14→23:00)
[2019-12-23] MEDS: ACETAMINOPHEN TAB 650MG DOSE (2X325MG) PO PRN ×2 (06:16→21:12)
[2019-12-23 06:47] VITALS: BP 114/62
[2019-12-23] MEDS: DICLOFENAC EPOLAMINE 1.3 % PATCH TOP SCH ×2 (08:19→21:12)
[2019-12-23] MEDS: CETIRIZINE (ZyrTEC) 10 MG TAB PO SCH (08:19)
[2019-12-23] MEDS: MONTELUKAST 10 MG TAB PO SCH (08:19)
[2019-12-23] MEDS: CEPHALEXIN 500 MG CAP PO SCH ×4 (08:20→21:10)
[2019-12-23] MEDS: FOLIC ACID 1 MG TAB PO SCH (08:20)
[2019-12-23] MEDS: busPIRone 5 MG TAB PO SCH ×3 (08:20→21:10)
[2019-12-23] MEDS: levETIRAcetam 250MG TABLET (KEPPRA) PO SCH ×3 (08:20→21:10)
[2019-12-23] MEDS: OMEPRAZOLE 20 MG CAP PO SCH (08:20)
[2019-12-23] MEDS: OLANZapine ORAL DISINTEGRATING TAB 5MG PO PRN (11:50)
[2019-12-23 15:13] VITALS: BP 123/86
[2019-12-23] MEDS ORDERED: SERTRALINE HCL 25 MG TABLET PO ONE (16:00)
--- NOTE | 2019-12-23 16:12 | MHIPNPDOC ---
[facility] Progress Note Progress Note DATE OF SERVICE: 12/23/19 HISTORY: Patient is a 59 year old Female who had reported to her rn case management that she was feeling afraid. Patient has had multiple psychiatric hos pitalizations including a family history of mental illness. She reports that her paranoia stems from feeling that she is afraid to be by herself, but complains about being around crowds of people. VITAL SIGNS: See below. NEW TEST RESULTS: CURRENT MEDICATIONS: See below. MENTAL STATUS EXAMINATION: Patient is a 59 -year old female, who is reporting paranoid thoughts, depression and anxiety. She appears older than her stated age. She has fair hygiene and grooming. She has a staring eye contact. Says she is worried about her cats. She attempted to call her rn case management to alert her to the cat situation. Speech: Is slow, low and slow lino Language skills are fait Thought processes including: linear. slowed and mildly blocked Thought content: Depression, Anxiety, Paranoid thoughts Abstract reasoning, and computation: Fair Description of associations: Paranoid thoughts about other people Description of abnormal or psychotic thoughts: Fear of being social, paranoid Judgment: Fair Insight: Fair Orientation: alert and oriented Recent and remote memory: at times poor Attention span and concentration: poor Language: fair Fund of knowledge: Below average Mood: Anxious, Worried Affect: Blunted/Flat DIAGNOSES: 1. Schizoaffective Disorder ASSESSMENT: Patient states that he medications are not right. She states "I don't feel right" Patient reports paranoid thoughts and fear. Her affect is Very Flat and there is no change in her affect to denote fear, irritation, happiness or contentment. States that her back pain is lessening. Patient is cooperative in the milieu. She reports continued depression, anxiety and fearfulness. MANAGEMENT PLAN: Pt to trial Zoloft 25 mg po. Patient is reporting that she is not safe to be discharged and feels that she may be ready for discharge on Friday Patient is worried about her cats. TIME SPENT: 20 minutes. Vital Signs Vital Signs Date Time Temp Pulse Resp B/P (MAP) Pulse Ox O2 Delivery O2 Flow Rate FiO2 12/23/19 15:13 98.1 65 16 123/86 (98) 12/23/19 06:47 97 Room Air Current Medications Current Medications Medications (Trade) Dose Ordered Sig/Rita Route PRN Reason Start Time Stop Time Status Last Admin Dose Admin Acetaminophen (Tylenol Tab) 650 mg Q6HP PRN PO HEADACHE or DISCOMFORT 12/16/19 18:45 12/23/19 06:16 Al Hydrox/Mg Hydrox/Simethicone (Mylanta) 30 ml Q4HP PRN PO HEARTBURN/INDIGESTION 12/16/19 18:45 Atorvastatin Calcium (Lipitor) 20 mg QHS PO 12/16/19 21:00 12/22/19 21:41 Buspirone HCl (Buspar) 5 mg TID PO 12/17/19 16:00 12/23/19 15:14 Cephalexin Monohydrate (Keflex) 500 mg QID PO 12/22/19 17:00 12/29/19 17:00 12/23/19 11:50 Cetirizine HCl (ZyrTEC) 10 mg QAM PO 12/17/19 09:00 12/23/19 08:19 Diclofenac Epolamine (Flector 1.3%) 1 patch Q12H TOP 12/22/19 21:00 12/23/19 08:19 Folic Acid (Folic Acid) 1 mg QAM PO 12/17/19 09:00 12/23/19 08:20 Home Med (Med Rec Complete!) ASDIRECTED XX 12/16/19 17:30 12/16/19 17:29 DC Hydroxyzine HCl (Atarax) 50 mg Q8H PO 12/17/19 15:00 12/23/19 15:14 Ibuprofen (Advil) 400 mg Q8HP PRN PO PAIN 12/19/19 12:30 12/21/19 12:30 DC 12/20/19 15:06 Ibuprofen (Advil) 600 mg Q8HP PRN PO PAIN 12/22/19 15:00 12/22/19 15:20 DC Levetiracetam (Keppra) 250 mg QHS PO 12/16/19 21:00 12/22/19 21:41 Levetiracetam (Keppra) 1,000 mg BID PO 12/16/19 21:00 12/23/19 08:20 Lidocaine (Lidoderm Patch) 1 patch DAILY TD 12/22/19 09:00 12/22/19 15:02 DC 12/22/19 12:30 Magnesium Hydroxide (Milk Of Magnesia) 30 ml DAILYPRN PRN PO CONSTIPATION 12/16/19 18:45 Montelukast Sodium (Singulair) 10 mg QAM PO 12/17/19 09:00 12/23/19 08:19 Nicotine (Nicoderm Cq 21mg) 1 patch DAILY TD 12/17/19 09:00 Cancel Nitrofurantoin Monoh/Nitrofur Macro (Macrobid) 100 mg BID PO 12/17/19 09:00 12/22/19 15:18 DC 12/22/19 09:38 Nitrofurantoin Monoh/Nitrofur Macro (Macrobid) 100 mg BID PO 12/17/19 21:00 12/17/19 14:07 DC Non-Formulary Medication ( See Comment Field Below ) REMOVE LIDODERM PATCH DAILY@21 XX 12/22/19 21:00 12/22/19 15:04 DC Olanzapine (ZyPREXA ZYDIS) 5 mg Q6HP PRN PO AGITATION/anxiety 12/16/19 18:45 12/23/19 11:50 Omeprazole (PriLOSEC) 20 mg QAM PO 12/17/19 09:00 12/23/19 08:20 Sertraline HCl (Zoloft) 25 mg DAILY PO 12/17/19 09:00 12/19/19 12:34 DC 12/19/19 08:34 Trazodone HCl (Desyrel) 50 mg QHSP PRN PO INSOMNIA 12/16/19 18:45 12/19/19 20:42 Allergies Coded Allergies: No Known Allergies (Unverified , 03/17/17) MAGDALENO SULLIVAN NP Dec 23, 2019 16:12
[2019-12-23] MEDS: ATORVASTATIN 20 MG TAB PO SCH (21:10)
[2019-12-24] MEDS: hydrOXYzine 50 MG TAB PO SCH ×3 (06:19→23:00)
[2019-12-24 07:04] VITALS: BP 123/80
[2019-12-24] MEDS: OLANZapine ORAL DISINTEGRATING TAB 5MG PO PRN (08:30)
[2019-12-24] MEDS: CEPHALEXIN 500 MG CAP PO SCH ×4 (08:30→21:31)
[2019-12-24] MEDS: OMEPRAZOLE 20 MG CAP PO SCH (08:30)
[2019-12-24] MEDS: FOLIC ACID 1 MG TAB PO SCH (08:30)
[2019-12-24] MEDS: MONTELUKAST 10 MG TAB PO SCH (08:30)
[2019-12-24] MEDS: levETIRAcetam 250MG TABLET (KEPPRA) PO SCH ×3 (08:30→21:32)
[2019-12-24] MEDS: DICLOFENAC EPOLAMINE 1.3 % PATCH TOP SCH ×2 (08:31→21:32)
[2019-12-24] MEDS: busPIRone 5 MG TAB PO SCH (08:31)
[2019-12-24] MEDS: CETIRIZINE (ZyrTEC) 10 MG TAB PO SCH (08:31)
[2019-12-24] MEDS: ACETAMINOPHEN TAB 650MG DOSE (2X325MG) PO PRN (13:12)
--- NOTE | 2019-12-24 13:32 | MHIPNPDOC ---
[facility] Progress Note Progress Note DATE OF SERVICE: 12/24/19 HISTORY: This day 9 for this patient's admission. Patient is a 59 -year-old , female, who has a history of 4 other psychiatric admissions, last hospitalization at this hospital for [facility] was 09/15/2016. (Psychiatric Admissions: 02/10/16, 03/23/16, 09/05/16, and 09/14/16) She was under the service of Dr. Koenig's service with a diagnosis of Unspecified Depressive Disorder, Seizure Disorder, Asthma. Patient has a past diagnosis of Schizophrenia and Schizoaffective Disorder and is taking Aristada 662 mg IM, last dose on 12/07/19. On this occasion patient is reporting "freaking out and being scared of everything" Patient reports that yesterday in the morning she was very fearful and that she called her dependency case manager, Margaux who subsequently called her counselor Catherine. Catherine called 911 and patient was transported to the Hospital. Patient reports that she has been feeling scared, depressed and anxious and can't relate to when this started. She also reports having poor concentration, poor focus, anxiety, having feelings of helplessness. VITAL SIGNS: See below. NEW TEST RESULTS: CURRENT MEDICATIONS: See below. MENTAL STATUS EXAMINATION: Patient is a 59 -year old female, who is reporting paranoid thoughts, depression and anxiety. She appears older than her stated age. She has poor hygiene and grooming. Reports being afraid to shower. She has a staring eye contact. Continues to report being very paranoid. Speech: Is slow, low and slow lino Language skills are fait Thought processes including: linear. slowed and mildly blocked Thought content: Depression, Anxiety, Paranoid thoughts Abstract reasoning, and computation: Fair Description of associations: Paranoid thoughts about other people Description of abnormal or psychotic thoughts: Fear of being social, paranoid Judgment: Fair Insight: Fair Orientation: alert and oriented Recent and remote memory: at times poor Attention span and concentration: poor Language: fair Fund of knowledge: Below average Mood: Anxious, Worried Affect: Blunted/Flat DIAGNOSES: 1. Schizoaffective Disorder 2. Generalized Anxiety Disorder ASSESSMENT: Patient reports that her dependency case manager was able to feed her cats. Group Therapy staff notified patient that her cats are well. Patient reports that she is having difficulty. Patient has a reddened area on face (right nasolabial fold, between eyebrows and left cheek). Discontinued Buspar. She also complains of blurry vision, states that this has been on-going. Also reporting having difficulty moving, starting to move. MANAGEMENT PLAN: Cogentin 1 mg twice daily PRN for EPS, Benadryl Cream for rash. Patient educated on each of the new medications and rational for discontinuation of Buspar TIME SPENT: 20 minutes. Vital Signs Vital Signs Date Time Temp Pulse Resp B/P (MAP) Pulse Ox O2 Delivery O2 Flow Rate FiO2 12/24/19 07:04 97.8 70 16 123/80 (94) 96 Room Air Current Medications Current Medications Medications (Trade) Dose Ordered Sig/Rita Route PRN Reason Start Time Stop Time Status Last Admin Dose Admin Acetaminophen (Tylenol Tab) 650 mg Q6HP PRN PO HEADACHE or DISCOMFORT 12/16/19 18:45 12/24/19 13:12 Al Hydrox/Mg Hydrox/Simethicone (Mylanta) 30 ml Q4HP PRN PO HEARTBURN/INDIGESTION 12/16/19 18:45 Atorvastatin Calcium (Lipitor) 20 mg QHS PO 12/16/19 21:00 12/23/19 21:10 Buspirone HCl (Buspar) 5 mg TID PO 12/17/19 16:00 12/24/19 08:31 Cephalexin Monohydrate (Keflex) 500 mg QID PO 12/22/19 17:00 12/29/19 17:00 12/24/19 13:10 Cetirizine HCl (ZyrTEC) 10 mg QAM PO 12/17/19 09:00 12/24/19 08:31 Diclofenac Epolamine (Flector 1.3%) 1 patch Q12H TOP 12/22/19 21:00 12/24/19 08:31 Folic Acid (Folic Acid) 1 mg QAM PO 12/17/19 09:00 12/24/19 08:30 Home Med (Med Rec Complete!) ASDIRECTED XX 12/16/19 17:30 12/16/19 17:29 DC Hydroxyzine HCl (Atarax) 50 mg Q8H PO 12/17/19 15:00 12/24/19 06:19 Ibuprofen (Advil) 400 mg Q8HP PRN PO PAIN 12/19/19 12:30 12/21/19 12:30 DC 12/20/19 15:06 Ibuprofen (Advil) 600 mg Q8HP PRN PO PAIN 12/22/19 15:00 12/22/19 15:20 DC Levetiracetam (Keppra) 250 mg QHS PO 12/16/19 21:00 12/23/19 21:10 Levetiracetam (Keppra) 1,000 mg BID PO 12/16/19 21:00 12/24/19 08:30 Lidocaine (Lidoderm Patch) 1 patch DAILY TD 12/22/19 09:00 12/22/19 15:02 DC 12/22/19 12:30 Magnesium Hydroxide (Milk Of Magnesia) 30 ml DAILYPRN PRN PO CONSTIPATION 12/16/19 18:45 Montelukast Sodium (Singulair) 10 mg QAM PO 12/17/19 09:00 12/24/19 08:30 Nicotine (Nicoderm Cq 21mg) 1 patch DAILY TD 12/17/19 09:00 Cancel Nitrofurantoin Monoh/Nitrofur Macro (Macrobid) 100 mg BID PO 12/17/19 09:00 12/22/19 15:18 DC 12/22/19 09:38 Nitrofurantoin Monoh/Nitrofur Macro (Macrobid) 100 mg BID PO 12/17/19 21:00 12/17/19 14:07 DC Non-Formulary Medication ( See Comment Field Below ) REMOVE LIDODERM PATCH DAILY@21 XX 12/22/19 21:00 12/22/19 15:04 DC Olanzapine (ZyPREXA ZYDIS) 5 mg Q6HP PRN PO AGITATION/anxiety 12/16/19 18:45 12/24/19 08:30 Omeprazole (PriLOSEC) 20 mg QAM PO 12/17/19 09:00 12/24/19 08:30 Sertraline HCl (Zoloft) 25 mg DAILY PO 12/17/19 09:00 12/19/19 12:34 DC 12/19/19 08:34 Trazodone HCl (Desyrel) 50 mg QHSP PRN PO INSOMNIA 12/16/19 18:45 12/19/19 20:42 Allergies Coded Allergies: No Known Allergies (Unverified , 03/17/17) MAGDALENO SULLIVAN NP Dec 24, 2019 13:32
[2019-12-24] MEDS ORDERED: diphenhydrAMINE CREAM 30GM TOP PRN (13:45)
[2019-12-24] MEDS ORDERED: BENZTROPINE 1 MG TAB PO PRN (13:45)
[2019-12-24 18:09] VITALS: BP 126/66
[2019-12-24] MEDS: ATORVASTATIN 20 MG TAB PO SCH (21:31)
[2019-12-25] MEDS: hydrOXYzine 50 MG TAB PO SCH ×3 (06:35→23:00)
[2019-12-25 06:51] VITALS: BP 122/60
[2019-12-25] MEDS: OMEPRAZOLE 20 MG CAP PO SCH (08:44)
[2019-12-25] MEDS: CEPHALEXIN 500 MG CAP PO SCH ×4 (08:44→21:04)
[2019-12-25] MEDS: DICLOFENAC EPOLAMINE 1.3 % PATCH TOP SCH ×2 (08:44→21:04)
[2019-12-25] MEDS: FOLIC ACID 1 MG TAB PO SCH (08:44)
[2019-12-25] MEDS: MONTELUKAST 10 MG TAB PO SCH (08:45)
[2019-12-25] MEDS: CETIRIZINE (ZyrTEC) 10 MG TAB PO SCH (08:45)
[2019-12-25] MEDS: levETIRAcetam 250MG TABLET (KEPPRA) PO SCH ×3 (08:45→21:04)
[2019-12-25] MEDS: OLANZapine ORAL DISINTEGRATING TAB 5MG PO PRN (10:20)
[2019-12-25 18:00] VITALS: BP 171/91
[2019-12-25] MEDS: ATORVASTATIN 20 MG TAB PO SCH (21:03)
[2019-12-26 06:32] VITALS: BP 146/65
[2019-12-26] MEDS: hydrOXYzine 50 MG TAB PO SCH ×3 (06:49→23:00)
[2019-12-26] MEDS: OLANZapine ORAL DISINTEGRATING TAB 5MG PO PRN ×2 (08:27→17:57)
[2019-12-26] MEDS: levETIRAcetam 250MG TABLET (KEPPRA) PO SCH ×3 (08:27→22:02)
[2019-12-26] MEDS: DICLOFENAC EPOLAMINE 1.3 % PATCH TOP SCH ×2 (08:27→22:05)
[2019-12-26] MEDS: CETIRIZINE (ZyrTEC) 10 MG TAB PO SCH (08:27)
[2019-12-26] MEDS: MONTELUKAST 10 MG TAB PO SCH (08:27)
[2019-12-26] MEDS: FOLIC ACID 1 MG TAB PO SCH (08:27)
[2019-12-26] MEDS: CEPHALEXIN 500 MG CAP PO SCH ×4 (08:27→22:00)
[2019-12-26] MEDS: OMEPRAZOLE 20 MG CAP PO SCH (08:27)
[2019-12-26 18:00] VITALS: BP 141/85
[2019-12-26] MEDS: ATORVASTATIN 20 MG TAB PO SCH (22:01)
[2019-12-27] MEDS: hydrOXYzine 50 MG TAB PO SCH ×3 (06:01→23:17)
[2019-12-27 06:06] VITALS: BP 148/77
[2019-12-27] MEDS: DICLOFENAC EPOLAMINE 1.3 % PATCH TOP SCH ×2 (09:00→21:00)
[2019-12-27] MEDS: levETIRAcetam 250MG TABLET (KEPPRA) PO SCH ×3 (09:26→21:18)
[2019-12-27] MEDS: OMEPRAZOLE 20 MG CAP PO SCH (09:26)
[2019-12-27] MEDS: CEPHALEXIN 500 MG CAP PO SCH ×4 (09:26→21:18)
[2019-12-27] MEDS: MONTELUKAST 10 MG TAB PO SCH (09:27)
[2019-12-27] MEDS: CETIRIZINE (ZyrTEC) 10 MG TAB PO SCH (09:27)
[2019-12-27] MEDS: FOLIC ACID 1 MG TAB PO SCH (09:27)
[2019-12-27] MEDS: OLANZapine ORAL DISINTEGRATING TAB 5MG PO PRN (09:55)
--- NOTE | 2019-12-27 13:03 | MHIPNPDOC ---
[facility] Progress Note Progress Note DATE OF SERVICE: 12/27/19 HISTORY: This day 9 for this patient's admission. Patient is a 59 -year-old , female, who has a history of 4 other psychiatric admissions, last hospitalization at this hospital for [facility] was 09/15/2016. Patient has a past diagnosis of Schizophrenia and Schizoaffective Disorder and is taking Aristada 662 mg IM, last dose on 12/07/19. On this occasion patient is reporting "freaking out and being scared of everything" Patient reports that yesterday in the morning she was very fearful and that she called her case specialist, Margaux. She also reports having poor concentration, poor focus, anxiety, having feelings of helplessness. VITAL SIGNS: See below. NEW TEST RESULTS: CURRENT MEDICATIONS: See below. MENTAL STATUS EXAMINATION: Patient is a 59 -year old female, who is reporting paranoid thoughts, depression and anxiety. She appears older than her stated age. She has poor hygiene and grooming. Reports being afraid to shower. She has a staring eye contact. Continues to report being very paranoid. Speech: Is slow, low and slow lino Language skills are fait Thought processes including: linear. slowed and mildly blocked Thought content: Depression, Anxiety, Paranoid thoughts Abstract reasoning, and computation: Fair Description of associations: Paranoid thoughts about other people Description of abnormal or psychotic thoughts: Fear of being social, paranoid Judgment: Fair Insight: Fair Orientation: alert and oriented Recent and remote memory: at times poor Attention span and concentration: poor Language: fair Fund of knowledge: Below average Mood: Anxious, Worried Affect: Blunted/Flat DIAGNOSES: 1. Schizoaffective Disorder 2. Generalized Anxiety Disorder ASSESSMENT: States she has not showered, afraid to shower, "I don't know anything about the shower" Requesting a shower chair. Although, patient is very blunted, she reports anxiety and mild agitation. This is not observed. Reporting depression and that her medications are not helping her. She states that being around a lot of people is not good for her. When we discuss disc harge she states she is not ready to be discharged. Patient has reddened areas of her face. Encouraged patient to take a shower today. MANAGEMENT PLAN: Patient to start Zoloft 25 mg. TIME SPENT: 20 minutes. Vital Signs Vital Signs Date Time Temp Pulse Resp B/P (MAP) Pulse Ox O2 Delivery O2 Flow Rate FiO2 12/27/19 06:06 97.8 52 18 148/77 (100) 95 Room Air Current Medications Current Medications Medications (Trade) Dose Ordered Sig/Rita Route PRN Reason Start Time Stop Time Status Last Admin Dose Admin Acetaminophen (Tylenol Tab) 650 mg Q6HP PRN PO HEADACHE or DISCOMFORT 12/16/19 18:45 12/24/19 13:12 Al Hydrox/Mg Hydrox/Simethicone (Mylanta) 30 ml Q4HP PRN PO HEARTBURN/INDIGESTION 12/16/19 18:45 Atorvastatin Calcium (Lipitor) 20 mg QHS PO 12/16/19 21:00 12/26/19 22:01 Benztropine Mesylate (Cogentin) 1 mg BIDP PRN PO EPS 12/24/19 13:45 Buspirone HCl (Buspar) 5 mg TID PO 12/17/19 16:00 12/24/19 13:38 DC 12/24/19 08:31 Cephalexin Monohydrate (Keflex) 500 mg QID PO 12/22/19 17:00 12/29/19 17:00 12/27/19 12:51 Cetirizine HCl (ZyrTEC) 10 mg QAM PO 12/17/19 09:00 12/27/19 09:27 Diclofenac Epolamine (Flector 1.3%) 1 patch Q12H TOP 12/22/19 21:00 12/26/19 22:05 Diphenhydramine HCl (Benadryl Cream) apply to affected area BIDP PRN TOP ITCHING/RASH 12/24/19 13:45 12/26/19 12:35 Folic Acid (Folic Acid) 1 mg QAM PO 12/17/19 09:00 12/27/19 09:27 Home Med (Med Rec Complete!) ASDIRECTED XX 12/16/19 17:30 12/16/19 17:29 DC Hydroxyzine HCl (Atarax) 50 mg Q8H PO 12/17/19 15:00 12/27/19 06:01 Ibuprofen (Advil) 400 mg Q8HP PRN PO PAIN 12/19/19 12:30 12/21/19 12:30 DC 12/20/19 15:06 Ibuprofen (Advil) 600 mg Q8HP PRN PO PAIN 12/22/19 15:00 12/22/19 15:20 DC Levetiracetam (Keppra) 250 mg QHS PO 12/16/19 21:00 12/26/19 22:02 Levetiracetam (Keppra) 1,000 mg BID PO 12/16/19 21:00 12/27/19 09:26 Lidocaine (Lidoderm Patch) 1 patch DAILY TD 12/22/19 09:00 12/22/19 15:02 DC 12/22/19 12:30 Magnesium Hydroxide (Milk Of Magnesia) 30 ml DAILYPRN PRN PO CONSTIPATION 12/16/19 18:45 Montelukast Sodium (Singulair) 10 mg QAM PO 12/17/19 09:00 12/27/19 09:27 Nicotine (Nicoderm Cq 21mg) 1 patch DAILY TD 12/17/19 09:00 Cancel Nitrofurantoin Monoh/Nitrofur Macro (Macrobid) 100 mg BID PO 12/17/19 09:00 12/22/19 15:18 DC 12/22/19 09:38 Nitrofurantoin Monoh/Nitrofur Macro (Macrobid) 100 mg BID PO 12/17/19 21:00 12/17/19 14:07 DC Non-Formulary Medication ( See Comment Field Below ) REMOVE LIDODERM PATCH DAILY@21 XX 12/22/19 21:00 12/22/19 15:04 DC Olanzapine (ZyPREXA ZYDIS) 5 mg Q6HP PRN PO AGITATION/anxiety 12/16/19 18:45 12/27/19 09:55 Omeprazole (PriLOSEC) 20 mg QAM PO 12/17/19 09:00 12/27/19 09:26 Sertraline HCl (Zoloft) 25 mg DAILY PO 12/17/19 09:00 12/19/19 12:34 DC 12/19/19 08:34 Trazodone HCl (Desyrel) 50 mg QHSP PRN PO INSOMNIA 12/16/19 18:45 12/19/19 20:42 Allergies Coded Allergies: No Known Allergies (Unverified , 03/17/17) MAGDALENO SULLIVAN [employer] Dec 27, 2019 13:03
[2019-12-27] MEDS: SERTRALINE HCL 25 MG TABLET PO SCH (13:10)
[2019-12-27 16:45] VITALS: BP 127/75
[2019-12-27] MEDS: ATORVASTATIN 20 MG TAB PO SCH (21:19)
[2019-12-28] MEDS: hydrOXYzine 50 MG TAB PO SCH ×3 (06:29→21:44)
[2019-12-28 06:33] VITALS: BP 150/80
[2019-12-28] MEDS: DICLOFENAC EPOLAMINE 1.3 % PATCH TOP SCH ×2 (09:00→21:00)
[2019-12-28] MEDS: SERTRALINE HCL 25 MG TABLET PO SCH (09:12)
[2019-12-28] MEDS: FOLIC ACID 1 MG TAB PO SCH (09:12)
[2019-12-28] MEDS: OMEPRAZOLE 20 MG CAP PO SCH (09:12)
[2019-12-28] MEDS: CEPHALEXIN 500 MG CAP PO SCH ×4 (09:12→21:45)
[2019-12-28] MEDS: levETIRAcetam 250MG TABLET (KEPPRA) PO SCH ×3 (09:12→21:44)
[2019-12-28] MEDS: CETIRIZINE (ZyrTEC) 10 MG TAB PO SCH (09:12)
[2019-12-28] MEDS: MONTELUKAST 10 MG TAB PO SCH (09:13)
[2019-12-28 09:16] VITALS: BP 142/81
--- NOTE | 2019-12-28 11:22 | MHIPNPDOC ---
[facility] Progress Note Progress Note DATE OF SERVICE: 12/28/19 HISTORY: This day 13 for this patient's admission. Patient is a 59 -year-old , female, who has a history of 4 other psychiatric admissions, last hospitalization at this hospital for [facility] was 09/15/2016. Patient has a past diagnosis of Schizophrenia and Schizoaffective Disorder and is taking Aristada 662 mg IM, last dose on 12/07/19. On this occasion patient is reporting "freaking out and being scared of everything" Patient reports that yesterday in the morning she was very fearful and that she called her cyanide case hardener, Margaux. She also reports having poor concentration, poor focus, anxiety, having feelings of helplessness. VITAL SIGNS: See below. NEW TEST RESULTS: CURRENT MEDICATIONS: See below. MENTAL STATUS EXAMINATION: Patient is a 59 -year old female, who is reporting paranoid thoughts, depression and anxiety. She appears older than her stated age. She has fair hygiene and grooming. She has a staring eye contact. Continues to report being very paranoid. Speech: Is slow, low and slow lino Language skills are fait Thought processes including: linear. slowed and mildly blocked Thought content: Depression, Anxiety, Paranoid thoughts Abstract reasoning, and computation: Fair Description of associations: Paranoid thoughts about other people Description of abnormal or psychotic thoughts: Fear of being social, paranoid of others. Judgment: Fair Insight: Fair Orientation: alert and oriented Recent and remote memory: at times poor Attention span and concentration: poor Language: fair Fund of knowledge: Below average Mood: Depressed, Anxious, Worried Affect: Blunted/Flat/Tearful DIAGNOSES: 1. Schizoaffective Disorder 2. Generalized Anxiety Disorder Assessment: Everything bothers me, I am scared, I cant talk to other patients. I Dont know what to say Reports that another peer is making her scared because he keeps talking to me, he keeps trying to follow me Patient is tearful in the interview. Everybody is asking me questions, but I dont know Reports that she cannot return home because she will be afraid, confused and scared again I dont know what makes me feel this way, I am not making any sense Patient presents as nervous and worried. She reports depression and anxiety and being fearful while admitted but also fearful at home. She is very tearful in the interview. She denies that she has auditory/visual hallucinations. Plan: Patient is not stable for discharge. Hydroxyzine 50 mg three times daily, added to medication regimen. TIME SPENT: 20 minutes. Vital Signs Vital Signs Date Time Temp Pulse Resp B/P (MAP) Pulse Ox O2 Delivery O2 Flow Rate FiO2 12/28/19 09:16 142/81 (101) 12/28/19 06:33 98.2 63 16 12/27/19 06:06 95 Room Air Current Medications Current Medications Medications (Trade) Dose Ordered Sig/Rita Route PRN Reason Start Time Stop Time Status Last Admin Dose Admin Acetaminophen (Tylenol Tab) 650 mg Q6HP PRN PO HEADACHE or DISCOMFORT 12/16/19 18:45 12/24/19 13:12 Al Hydrox/Mg Hydrox/Simethicone (Mylanta) 30 ml Q4HP PRN PO HEARTBURN/INDIGESTION 12/16/19 18:45 Atorvastatin Calcium (Lipitor) 20 mg QHS PO 12/16/19 21:00 12/27/19 21:19 Benztropine Mesylate (Cogentin) 1 mg BIDP PRN PO EPS 12/24/19 13:45 Buspirone HCl (Buspar) 5 mg TID PO 12/17/19 16:00 12/24/19 13:38 DC 12/24/19 08:31 Cephalexin Monohydrate (Keflex) 500 mg QID PO 12/22/19 17:00 12/29/19 17:00 12/28/19 09:12 Cetirizine HCl (ZyrTEC) 10 mg QAM PO 12/17/19 09:00 12/28/19 09:12 Diclofenac Epolamine (Flector 1.3%) 1 patch Q12H TOP 12/22/19 21:00 12/26/19 22:05 Diphenhydramine HCl (Benadryl Cream) apply to affected area BIDP PRN TOP ITCHING/RASH 12/24/19 13:45 12/26/19 12:35 Folic Acid (Folic Acid) 1 mg QAM PO 12/17/19 09:00 12/28/19 09:12 Home Med (Med Rec Complete!) ASDIRECTED XX 12/16/19 17:30 12/16/19 17:29 DC Hydroxyzine HCl (Atarax) 50 mg Q8H PO 12/17/19 15:00 12/28/19 06:29 Ibuprofen (Advil) 400 mg Q8HP PRN PO PAIN 12/19/19 12:30 12/21/19 12:30 DC 12/20/19 15:06 Ibuprofen (Advil) 600 mg Q8HP PRN PO PAIN 12/22/19 15:00 12/22/19 15:20 DC Levetiracetam (Keppra) 250 mg QHS PO 12/16/19 21:00 12/27/19 21:18 Levetiracetam (Keppra) 1,000 mg BID PO 12/16/19 21:00 12/28/19 09:12 Lidocaine (Lidoderm Patch) 1 patch DAILY TD 12/22/19 09:00 12/22/19 15:02 DC 12/22/19 12:30 Magnesium Hydroxide (Milk Of Magnesia) 30 ml DAILYPRN PRN PO CONSTIPATION 12/16/19 18:45 Montelukast Sodium (Singulair) 10 mg QAM PO 12/17/19 09:00 12/28/19 09:13 Nicotine (Nicoderm Cq 21mg) 1 patch DAILY TD 12/17/19 09:00 Cancel Nitrofurantoin Monoh/Nitrofur Macro (Macrobid) 100 mg BID PO 12/17/19 09:00 12/22/19 15:18 DC 12/22/19 09:38 Nitrofurantoin Monoh/Nitrofur Macro (Macrobid) 100 mg BID PO 12/17/19 21:00 12/17/19 14:07 DC Non-Formulary Medication ( See Comment Field Below ) REMOVE LIDODERM PATCH DAILY@21 XX 12/22/19 21:00 12/22/19 15:04 DC Olanzapine (ZyPREXA ZYDIS) 5 mg Q6HP PRN PO AGITATION/anxiety 12/16/19 18:45 12/27/19 09:55 Omeprazole (PriLOSEC) 20 mg QAM PO 12/17/19 09:00 12/28/19 09:12 Sertraline HCl (Zoloft) 25 mg DAILY PO 12/17/19 09:00 12/19/19 12:34 DC 9/6/20 08:34 Sertraline HCl (Zoloft) 25 mg QAM PO 12/27/19 09:00 12/28/19 09:12 Trazodone HCl (Desyrel) 50 mg QHSP PRN PO INSOMNIA 12/16/19 18:45 12/19/19 20:42 Allergies Coded Allergies: No Known Allergies (Unverified , 03/17/17) MAGDALENO SULLIVAN NP Dec 28, 2019 11:22
[2019-12-28] MEDS: OLANZapine ORAL DISINTEGRATING TAB 5MG PO PRN (13:56)
[2019-12-28 16:20] VITALS: BP 143/85
[2019-12-28] MEDS: ATORVASTATIN 20 MG TAB PO SCH (21:44)
[2019-12-29 06:16] VITALS: BP 144/88
[2019-12-29] MEDS: DICLOFENAC EPOLAMINE 1.3 % PATCH TOP SCH ×2 (09:00→21:00)
[2019-12-29] MEDS: CETIRIZINE (ZyrTEC) 10 MG TAB PO SCH (09:21)
[2019-12-29] MEDS: levETIRAcetam 250MG TABLET (KEPPRA) PO SCH ×3 (09:21→21:58)
[2019-12-29] MEDS: FOLIC ACID 1 MG TAB PO SCH (09:22)
[2019-12-29] MEDS: MONTELUKAST 10 MG TAB PO SCH (09:22)
[2019-12-29] MEDS: CEPHALEXIN 500 MG CAP PO SCH ×3 (09:22→17:20)
[2019-12-29] MEDS: SERTRALINE HCL 25 MG TABLET PO SCH (09:22)
[2019-12-29] MEDS: hydrOXYzine 50 MG TAB PO SCH ×3 (09:22→21:57)
[2019-12-29] MEDS: OMEPRAZOLE 20 MG CAP PO SCH (09:22)
[2019-12-29] MEDS: ACETAMINOPHEN TAB 650MG DOSE (2X325MG) PO PRN (10:37)
[2019-12-29] MEDS: OLANZapine ORAL DISINTEGRATING TAB 5MG PO PRN (12:46)
--- NOTE | 2019-12-29 14:27 | MHIPNPDOC ---
[facility] Progress Note Progress Note DATE OF SERVICE: 12/29/19 HISTORY: Patient is a 59 -year-old , female, who has a history of 4 other psychiatric admissions, last hospitalization at this hospital for [facility] was 09/15/2016. Patient has a past diagnosis of Schizophrenia and Schizoaffective Disorder and is taking Aristada 662 mg IM, last dose on 12/07/19. On this occasion patient is reporting "freaking out and being scared of everything" Patient reports that yesterday in the morning she was very fearful and that she called her comp field case manager, Margaux. She also reports having poor concentration, poor focus, anxiety, having feelings of helplessness. VITAL SIGNS: See below. NEW TEST RESULTS: CURRENT MEDICATIONS: See below. MENTAL STATUS EXAMINATION: Patient is a 59 -year old female, who is reporting paranoid thoughts, depression and anxiety. She appears older than her stated age. Has fair hygiene and grooming. She has a staring eye contact. Continues to report being very paranoid. Speech: Is slow, low and slow lino Language skills are fait Thought processes including: linear. slowed Thought content: Mild Depression, Anxiety, Paranoid thoughts Abstract reasoning, and computation: Fair Description of associations: Paranoid thoughts about other people Description of abnormal or psychotic thoughts: Fear of being social, mildly paranoid Judgment: Fair Insight: Fair Orientation: alert and oriented Recent and remote memory: at times fair Attention span and concentration: fair Language: fair Fund of knowledge: Below average Mood: reports depression with no suicidal/homicidal ideation Affect: Blunted/Flat DIAGNOSES: 1. Schizoaffective Disorder 2. Generalized Anxiety Disorder Assessment: Plan: Patient is stable for discharge tomorrow. Vital Signs Vital Signs Date Time Temp Pulse Resp B/P (MAP) Pulse Ox O2 Delivery O2 Flow Rate FiO2 12/29/19 06:16 97.6 71 16 144/88 (106) 12/27/19 06:06 95 Room Air Current Medications Current Medications Medications (Trade) Dose Ordered Sig/Rita Route PRN Reason Start Time Stop Time Status Last Admin Dose Admin Acetaminophen (Tylenol Tab) 650 mg Q6HP PRN PO HEADACHE or DISCOMFORT 12/16/19 18:45 12/29/19 10:37 Al Hydrox/Mg Hydrox/Simethicone (Mylanta) 30 ml Q4HP PRN PO HEARTBURN/INDIGESTION 12/16/19 18:45 Atorvastatin Calcium (Lipitor) 20 mg QHS PO 12/16/19 21:00 12/28/19 21:44 Benztropine Mesylate (Cogentin) 1 mg BIDP PRN PO EPS 12/24/19 13:45 Buspirone HCl (Buspar) 5 mg TID PO 12/17/19 16:00 12/24/19 13:38 DC 12/24/19 08:31 Cephalexin Monohydrate (Keflex) 500 mg QID PO 12/22/19 17:00 12/29/19 17:00 12/29/19 12:46 Cetirizine HCl (ZyrTEC) 10 mg QAM PO 12/17/19 09:00 12/29/19 09:21 Diclofenac Epolamine (Flector 1.3%) 1 patch Q12H TOP 12/22/19 21:00 12/26/19 22:05 Diphenhydramine HCl (Benadryl Cream) apply to affected area BIDP PRN TOP ITCHING/RASH 12/24/19 13:45 12/26/19 12:35 Folic Acid (Folic Acid) 1 mg QAM PO 12/17/19 09:00 12/29/19 09:22 Home Med (Med Rec Complete!) ASDIRECTED XX 12/16/19 17:30 12/16/19 17:29 DC Hydroxyzine HCl (Atarax) 50 mg Q8H PO 12/17/19 15:00 12/28/19 11:15 DC 12/28/19 06:29 Hydroxyzine HCl (Atarax) 50 mg TID PO 12/28/19 16:00 12/29/19 09:22 Ibuprofen (Advil) 400 mg Q8HP PRN PO PAIN 12/19/19 12:30 12/21/19 12:30 DC 12/20/19 15:06 Ibuprofen (Advil) 600 mg Q8HP PRN PO PAIN 12/22/19 15:00 12/22/19 15:20 DC Levetiracetam (Keppra) 250 mg QHS PO 12/16/19 21:00 12/28/19 21:44 Levetiracetam (Keppra) 1,000 mg BID PO 12/16/19 21:00 12/29/19 09:21 Lidocaine (Lidoderm Patch) 1 patch DAILY TD 12/22/19 09:00 12/22/19 15:02 DC 12/22/19 12:30 Magnesium Hydroxide (Milk Of Magnesia) 30 ml DAILYPRN PRN PO CONSTIPATION 12/16/19 18:45 Montelukast Sodium (Singulair) 10 mg QAM PO 12/17/19 09:00 12/29/19 09:22 Nicotine (Nicoderm Cq 21mg) 1 patch DAILY TD 12/17/19 09:00 Cancel Nitrofurantoin Monoh/Nitrofur Macro (Macrobid) 100 mg BID PO 12/17/19 09:00 12/22/19 15:18 DC 12/22/19 09:38 Nitrofurantoin Monoh/Nitrofur Macro (Macrobid) 100 mg BID PO 12/17/19 21:00 12/17/19 14:07 DC Non-Formulary Medication ( See Comment Field Below ) REMOVE LIDODERM PATCH DAILY@21 XX 12/22/19 21:00 12/22/19 15:04 DC Olanzapine (ZyPREXA ZYDIS) 5 mg Q6HP PRN PO AGITATION/anxiety 12/16/19 18:45 12/29/19 12:46 Omeprazole (PriLOSEC) 20 mg QAM PO 12/17/19 09:00 12/29/19 09:22 Sertraline HCl (Zoloft) 25 mg DAILY PO 12/17/19 09:00 12/19/19 12:34 DC 12/19/19 08:34 Sertraline HCl (Zoloft) 25 mg QAM PO 12/27/19 09:00 12/29/19 09:22 Trazodone HCl (Desyrel) 50 mg QHSP PRN PO INSOMNIA 12/16/19 18:45 12/19/19 20:42 Allergies Coded Allergies: No Known Allergies (Unverified , 03/17/17) MAGDALENO SULLIVAN BOX FEEDER Dec 29, 2019 14:27
[2019-12-29 16:01] VITALS: BP 134/77
[2019-12-29] MEDS: ATORVASTATIN 20 MG TAB PO SCH (21:57)
[2019-12-30 06:40] VITALS: BP 137/71
[2019-12-30] MEDS: DICLOFENAC EPOLAMINE 1.3 % PATCH TOP SCH (09:00)
[2019-12-30] MEDS ORDERED: HYDR50TA70 PO (09:12)
[2019-12-30] MEDS ORDERED: SERT25TA21 PO (09:12)
[2019-12-30] MEDS: CETIRIZINE (ZyrTEC) 10 MG TAB PO SCH (09:18)
[2019-12-30] MEDS: MONTELUKAST 10 MG TAB PO SCH (09:18)
[2019-12-30] MEDS: hydrOXYzine 50 MG TAB PO SCH (09:19)
[2019-12-30] MEDS: OMEPRAZOLE 20 MG CAP PO SCH (09:19)
[2019-12-30] MEDS: levETIRAcetam 250MG TABLET (KEPPRA) PO SCH (09:19)
[2019-12-30] MEDS: SERTRALINE HCL 25 MG TABLET PO SCH (09:19)
[2019-12-30] MEDS: FOLIC ACID 1 MG TAB PO SCH (09:19)
--- NOTE | 2019-12-30 09:30 | MHDSPDOC ---
[facility] Discharge Summary Discharge Summary DATE OF ADMISSION: Dec 16, 2019 at 18:45 DATE OF DISCHARGE: December 30, 2019 at 9:20 DIAGNOSES: 1. Schizoaffective Disorder 2. Generalized Anxiety Disorder REASON FOR ADMISSION: Patient is a 59 -year-old , female, who has a history of 4 other psychiatric admissions, last hospitalization at this hospital for [facility] was 09/15/2016. Patient has a past diagnosis of Schizophrenia and Sc hizoaffective Disorder and is taking Aristada 662 mg IM, last dose on 12/07/19. On this occasion patient is reporting "freaking out and being scared of everything" Patient reports that yesterday in the morning she was very fearful and that she called her outsole caser, Margaux. She also reports having poor concentration, poor focus, anxiety, having feelings of helplessness. CONSULTANTS INVOLVED: See Medical H + P by TREATMENT AND PROGRESS ON THE UNIT : Patient was afforded the following treatment modalities 1) Individual Therapy, 2) Group Therapy, 3) Medication Management, 4) Milieu Therapy, and 5) Safe Environment. HOSPITAL COURSE: Patient was restarted on all her Home medications. Zoloft 25 mg oral daily and Hydroxyzine 50 mg three times daily was added to her regimen. Patient continually reported feeling paranoid of others, anxious around crowds and reported having difficulty talking with people. DISCHARGE ASSESSMENT: Patient is a 59 year old Single, Disabled, Domiciled, Female who reported to her outsole caser that she was feeling afraid. Patient has a long family history of psychiatric illness, she reports that she lost her brother last year. Patient has had numerous psychiatric admissions with past diagnoses of Depression, Schizophrenia and Schizoaffective Disorder and is taking a long acting injectable (Aristada 662 mg IM due 01/07/20) through [facility], patient has been with a outsole caser for a many years. While hospitalized, patient often could not verbalize what she was afraid of. She did however report that she had difficulty being on the unit as she finds it difficult to be around too many people. She did not report being paranoid about people talking about her or that she was afraid of anyone specific. Patient reported that she was having anxiety about the welfare of her cats, and although she felt that she was not ready to be discharged, she could not verbalize why. She did however report that she was not suicidal or homicidal and was not having any planning or intent. She was not observed with delusions, grandiosity, psychosis, tania, obsessions or racing thoughts. She reports depression but could not evaluate or elaborate on her symptoms. Patient is reporting anxiety but she presents with very flat/blunted affect. It was difficult to gauge her anxiety as she didn't appear anxious, restless or nervous. She was calm and cooperative in the milieu. She reported that she had difficulty staying in group therapy, but this may be due to her social anxiety. She reports being scared to go home, but is cooperative with the decision. MENTAL STATUS EXAMINATION ON DISCHARGE: MENTAL STATUS EXAMINATION: Patient is a 59 -year old female, who is reporting paranoid thoughts, depression and anxiety. She appears older than her stated age. Has fair hygiene and grooming. She has a staring eye contact. Continues to report being very paranoid. Speech: Is slow, low and slow lino Language skills are fait Thought processes including: linear. slowed Thought content: Mild Depression, Anxiety, Paranoid thoughts Abstract reasoning, and computation: Fair Description of associations: Paranoid thoughts about other people Description of abnormal or psychotic thoughts: Fear of being social, mildly paranoid Judgment: Fair Insight: Fair Orientation: alert and oriented Recent and remote memory: at times fair Attention span and concentration: fair Language: fair Fund of knowledge: Below average Mood: reports depression with no suicidal/homicidal ideation Affect: Blunted/Flat MEDICATIONS ON DISCHARGE: See Discharge Medication Reconciliation PLAN/FOLLOWUP ARRANGEMENTS: Patient to follow up with [facility] The amount of time spent in the coordination of care for this patient was approximately 20 minutes. Vital Signs/I&Os Vital Signs Date Time Temp Pulse Resp B/P (MAP) Pulse Ox O2 Delivery O2 Flow Rate FiO2 12/30/19 06:40 97.2 70 18 137/71 (93) 93 Room Air Medications Scheduled Aripiprazole Lauroxil (Aristada) 662 Mg/2.4 Ml Suser.syr, 2 ML INJ QMONTH, (Reported) BRINGS TO CLINIC FOR NURSE TO ADMINISTER Atorvastatin Calcium (Atorvastatin Calcium) 20 Mg Tab, 20 MG PO QHS, (Reported) Cetirizine HCl (Cetirizine HCl) 10 Mg Tab, 10 MG PO QAM, (Reported) Cholecalciferol (Vitamin D3) (Vitamin D3) 25 Mcg Capsule, 25 MCG PO QAM, (Reported) Ferrous Sulfate (Ferrous Sulfate) 325 Mg Tablet.dr, 325 MG PO TID, (Reported) Folic Acid (Folic Acid) 1 Mg Tab, 1 MG PO QAM, (Reported) Hydroxyzine HCl (Hydroxyzine HCl) 50 Mg Tablet, 50 MG PO TID for Anxiety, #21 Levetiracetam (Keppra) 250 Mg Tab, 250 MG PO QHS, (Reported) TAKES WITH 1000MG FOR 1250MG TOTAL QHS Levetiracetam (Keppra) 1,000 Mg Tab, 1,000 MG PO BID, (Reported) Montelukast Sodium (Montelukast Sodium) 10 Mg Tab, 10 MG PO QAM, (Reported) Omeprazole (Omeprazole) 20 Mg Cap, 20 MG PO QAM, (Reported) Sertraline HCl (Sertraline HCl) 25 Mg Tablet, 25 MG PO QAM for Depression, #7 Miscellaneous Medications [Med Rec Comment] , (Reported) LIST OBTAINED FROM [facility] Allergies Coded Allergies: No Known Allergies (Unverified , 03/17/17) MAGDALENO SULLIVAN NP Dec 30, 2019 09:30
--- NOTE | 2020-01-12 07:38 | REP ---
THORACOLUMBAR SPINE SERIES: 12/22/19 CLINICAL: Lower back pain. TECHNIQUE: AP and lateral views to include the mid to lower thoracic spine through the mid sacrum. FINDINGS: There is no evidence for acute fracture/compression injury or subluxation. Advanced degenerative changes at L4-5 and L5-S1 includes endplate sclerosis osteophytosis disc space narrowing and hypertrophic facet changes. Moderate degenerative disc disease at L3-4 includes endplate sclerosis with minimal disc space narrowing. Remainder of the examination appears normal. IMPRESSION: Moderate to advanced degenerative changes extending from L3-4 through L5-S1. MTDD
== END 2019-12-30 12:20 | disposition home or self-care (01) | DRG 750 ==
LOC: M ED 10:37 → M ED INP 18:45 → M PSY 23:00
PROVIDERS: ADMIT Psychiatry & Neurology Psychiatry; ATTEND Psychiatry & Neurology Psychiatry
DX: F25.9 Schizoaffective disorder, unspecified (principal); N10 Acute pyelonephritis; G40.909 Epilepsy, unspecified, not intractable, without status epilepticus; D53.1 Other megaloblastic anemias, not elsewhere classified; N31.9 Neuromuscular dysfunction of bladder, unspecified; F41.1 Generalized anxiety disorder; J45.909 Unspecified asthma, uncomplicated; K21.9 Gastro-esophageal reflux disease without esophagitis; E78.5 Hyperlipidemia, unspecified; E55.9 Vitamin D deficiency, unspecified; G47.00 Insomnia, unspecified; K44.9 Diaphragmatic hernia without obstruction or gangrene; F17.210 Nicotine dependence, cigarettes, uncomplicated; Z79.899 Other long term (current) drug therapy; Z81.8 Family history of other mental and behavioral disorders; M54.5 Low back pain

== ENCOUNTER 2020-01-03 10:51 | Emergency (ER) | payer MEDICAID, OTHER ==
[~2020-01-03] VITALS: Ht 172.7 cm; Wt 90.0 kg
[~2020-01-03 10:51] MED LIST changes: +ARIS1.6I INJ; +BUSP1TAB PO; +D 101000 PO; +FERR325T3 PO; +HYDR1CAP25 PO; +HYDR50TA70 PO; +MED REC COMMENT; +REME30TA PO; +SERT25TA21 PO
[2020-01-03 13:12] LABS: AMPHETAMINES LEVEL URINE NEGATIVE (NEGATIVE); BARBITURATES URINE NEGATIVE (NEGATIVE); BENZODIAZEPINES URINE NEGATIVE (NEGATIVE); CANNABINOIDS URINE NEGATIVE (NEGATIVE); COCAINE METABOLITE URINE NEGATIVE (NEGATIVE); METHADONE URINE NEGATIVE (NEGATIVE); OPIATES URINE NEGATIVE (NEGATIVE); PHENCYCLIDINE URINE NEGATIVE (NEGATIVE)
[2020-01-03 13:48] LABS: HEMATOCRIT 39.3 % (36.0-47.0); HEMOGLOBIN 13.3 g/dl (12.0-15.5); MEAN CORPUSCULAR HEMOGLOBIN 29.3 pg (27.0-33.0); MEAN CORPUSCULAR HGB CONC 33.8 g/dl (32.0-36.5); MEAN CORPUSCULAR VOLUME 86.6 fl (80.0-96.0); PLATELET COUNT, AUTOMATED 326 10^3/uL (150-450); RED BLOOD COUNT 4.54 10^6/uL (4.00-5.40); WHITE BLOOD COUNT 9.2 10^3/uL (4.0-10.0)
[2020-01-03 14:18] LABS: ACETAMINOPHEN LEVEL < 2.0 UG/ML (10.0-30.0); ALBUMIN 3.7 GM/DL (3.2-5.2); ALT/SGPT 22 U/L (12-78); BILIRUBIN,DIRECT 0.1 MG/DL (0.0-0.2); BILIRUBIN,TOTAL 0.4 MG/DL (0.2-1.0); BLOOD UREA NITROGEN 7 MG/DL (7-18); CALCIUM LEVEL 9.4 MG/DL (8.8-10.2); CARBON DIOXIDE LEVEL 29 MEQ/L (21-32); CHLORIDE LEVEL 100 MEQ/L (98-107); ETHYL ALCOHOL (ETHANOL) < 0.003 % (0.000-0.010); GLOMERULAR FILTRATION RATE > 60.0 (>45); GLUCOSE, FASTING 89 MG/DL (70-100); POTASSIUM SERUM 3.8 MEQ/L (3.5-5.1); SALICYLATE LEVEL < 1.7 MG/DL (5.0-30.0); SODIUM LEVEL 133 MEQ/L (136-145); TOTAL PROTEIN 7.4 GM/DL (6.4-8.2)
[2020-01-03] MEDS ORDERED: levETIRAcetam 250MG TABLET (KEPPRA) PO ONE ×2 (20:15)
--- NOTE | 2020-01-03 20:34 | ECGEPIP ---
[facility] - ED Test Date: 2020-01-03 Pat Name: NAVEEN SCOTT Department: Room: - Gender: Female Oss Architect: : 1960 Requested By: AIDA Goode Order Number: [id number] Reading MD: Yaz Hagen Measurements Intervals [place] Rate: 63 P: 54 ME: 195 QRS: 93 QRSD: 149 T: 30 QT: 417 QTc: 427 Interpretive Statements SINUS RHYTHM RIGHT BUNDLE BRANCH BLOCK SIMILAR 01/08/19 Electronically Signed on 01-03-2020 20:33:56 EDT by Yaz Hagen
[2020-01-03 20:36] VITALS: BP 121/67
== END 2020-01-03 20:41 ==
LOC: M ED 10:51
DX: F20.9 Schizophrenia, unspecified (principal); F41.9 Anxiety disorder, unspecified; F17.200 Nicotine dependence, unspecified, uncomplicated; J45.909 Unspecified asthma, uncomplicated; K21.9 Gastro-esophageal reflux disease without esophagitis; I45.10 Unspecified right bundle-branch block
CPT/HCPCS: 80048; 80076; 80180; 80307; 84443; 85027; 93005; 99284; G0480; U0002

== ENCOUNTER → 2020-02-02 | Outpatient (REF) | payer OTHER ==
[2020-02-02 17:29] LABS: BASO % 0.2 % (0.0-1.0); HEMATOCRIT 42.5 % (36.0-47.0); LYMPH % 28.6 % (24.0-44.0); MEAN CORPUSCULAR HEMOGLOBIN 28.9 pg (27.0-33.0); MEAN CORPUSCULAR HGB CONC 32.9 g/dl (32.0-36.5); MEAN CORPUSCULAR VOLUME 87.6 fl (80.0-96.0); MONO # 0.7 10^3/uL (0.0-0.8); MONO % 6.5 % (0.0-5.0); NEUTROPHILS # 6.7 10^3/uL (1.5-8.5); NEUTROPHILS % 64.4 % (36.0-66.0); PLATELET COUNT, AUTOMATED 172 10^3/uL (150-450); RED BLOOD COUNT 4.85 10^6/uL (4.00-5.40); WHITE BLOOD COUNT 10.5 10^3/uL (4.0-10.0)
[2020-02-02 17:51] LABS: HEMOGLOBIN A1c 5.4 %
[2020-02-02 17:56] LABS: CHOLESTEROL LEVEL 186 MG/DL (<200); FERRITIN 48 NG/ML (8-252); HDL CHOLESTEROL 60 MG/DL (>40); IRON (FE) 55 UG/DL (50-170); LDL CHOLESTEROL 98 MG/DL (<100); NON-HDL-C 126 MG/DL; PERCENT SATURATION 16.6 % (13.2-45.0); TOTAL 25(OH) VITAMIN D 34.2 NG/ML (30.0-100.0); TOTAL IRON BINDING CAPACITY 331 UG/DL (250-450); TRIGLYCERIDES LEVEL 138 MG/DL (<150); VITAMIN B12 LEVEL 448 PG/ML
[2020-02-02 17:57] LABS: FOLATE > 24.0 NG/ML
== END ==
LOC: M LAB REF 16:29
PROVIDERS: ATTEND Physician Assistant
DX: Z83.3 Family history of diabetes mellitus (principal); R53.83 Other fatigue; D50.9 Iron deficiency anemia, unspecified; E55.9 Vitamin D deficiency, unspecified; E53.8 Deficiency of other specified B group vitamins; E78.5 Hyperlipidemia, unspecified

== ENCOUNTER 2020-07-10 14:14 | Emergency (ER) | payer OTHER ==
[~2020-07-10] VITALS: Ht 170.2 cm; Wt 88.0 kg
[~2020-07-10 14:14] MED LIST changes: +ESCI10TA16 PO; -ESCI10TA2 PO; +MIRT-60 PO; +MONT10TA10 PO; -MONT10TA4 PO; -REME30TA PO; +RISP-9 PO; -RISP2TAB3 PO
[2020-07-10] MEDS ORDERED: ABIL10TA9 PO (14:44)
[2020-07-10] MEDS ORDERED: SERT-141 PO (14:44)
[2020-07-10] MEDS ORDERED: MIRT1TAB (14:44)
[2020-07-10 15:26] LABS: HEMOGLOBIN 12.4 g/dl (12.0-15.5); MEAN CORPUSCULAR HGB CONC 31.8 g/dl (32.0-36.5); PLATELET COUNT, AUTOMATED 401 10^3/uL (150-450); RED BLOOD COUNT 4.59 10^6/uL (4.00-5.40); WHITE BLOOD COUNT 13.6 10^3/uL (4.0-10.0)
[2020-07-10 16:05] LABS: AMPHETAMINES LEVEL URINE NEGATIVE (NEGATIVE); BARBITURATES URINE NEGATIVE (NEGATIVE); BENZODIAZEPINES URINE NEGATIVE (NEGATIVE); CANNABINOIDS URINE NEGATIVE (NEGATIVE); COCAINE METABOLITE URINE NEGATIVE (NEGATIVE); METHADONE URINE NEGATIVE (NEGATIVE); OPIATES URINE NEGATIVE (NEGATIVE); PHENCYCLIDINE URINE NEGATIVE (NEGATIVE)
[2020-07-10 16:06] LABS: ACETAMINOPHEN LEVEL < 2.0 UG/ML (10.0-30.0); ALBUMIN 3.6 GM/DL (3.2-5.2); ALT/SGPT 20 U/L (12-78); BILIRUBIN,DIRECT < 0.1 MG/DL (0.0-0.2); BILIRUBIN,TOTAL 0.2 MG/DL (0.2-1.0); BLOOD UREA NITROGEN 10 MG/DL (7-18); CALCIUM LEVEL 9.3 MG/DL (8.8-10.2); CARBON DIOXIDE LEVEL 27 MEQ/L (21-32); CHLORIDE LEVEL 105 MEQ/L (98-107); ETHYL ALCOHOL (ETHANOL) < 0.003 % (0.000-0.010); GLOMERULAR FILTRATION RATE > 60.0 (>45); GLUCOSE, FASTING 104 MG/DL (70-100); POTASSIUM SERUM 3.7 MEQ/L (3.5-5.1); SALICYLATE LEVEL < 1.7 MG/DL (5.0-30.0); SODIUM LEVEL 138 MEQ/L (136-145); THYROID STIMULATING HORMONE 0.919 uIU/ML (0.358-3.740); TOTAL PROTEIN 7.6 GM/DL (6.4-8.2)
[2020-07-10] MEDS ORDERED: levETIRAcetam 250MG TABLET (KEPPRA) PO ONE (17:25)
--- NOTE | 2020-07-10 20:07 | ECGEPIP ---
[facility] - ED Test Date: 2020-07-10 Pat Name: NAVEEN SCOTT Department: Room: - Gender: Female Overhead Garage Door Hanger: norman : 1960 Requested By: Kalen Parekh Order Number: [id number] Reading MD: Yaz Hagen Measurements Intervals [place] Rate: 78 P: 49 MI: 170 QRS: 56 QRSD: 132 T: 8 QT: 398 QTc: 453 Interpretive Statements Normal sinus rhythm Right bundle branch block increased rate 01/03/20 Electronically Signed on 07-10-2020 20:06:44 EDT by Yaz Hagen
[2020-07-10 21:07] LABS: RSV AMPLIFICATION NEGATIVE (NEGATIVE)
[2020-07-10] MEDS ORDERED: hydrOXYzine 50 MG TAB PO STA (23:58)
[2020-07-11 03:00] VITALS: BP 125/65
== END 2020-07-11 03:03 ==
LOC: M ED 14:14
DX: F29 Unspecified psychosis not due to a substance or known physiological condition (principal); R45.851 Suicidal ideations; F33.9 Major depressive disorder, recurrent, unspecified; F22 Delusional disorders; F41.9 Anxiety disorder, unspecified; I45.10 Unspecified right bundle-branch block; J45.909 Unspecified asthma, uncomplicated; K21.9 Gastro-esophageal reflux disease without esophagitis; E78.5 Hyperlipidemia, unspecified; R56.9 Unspecified convulsions; F17.200 Nicotine dependence, unspecified, uncomplicated; Z79.899 Other long term (current) drug therapy

== ENCOUNTER → 2020-09-08 | Outpatient (CLI) | payer OTHER ==
[~2020-09-08] MED LIST changes: +ABIL10TA9 PO; +MIRT1TAB; +SERT-141 PO
[2020-09-08 10:26] LABS: BASO % 0.2 % (0.0-1.0); HEMATOCRIT 37.7 % (36.0-47.0); HEMOGLOBIN 11.9 g/dl (12.0-15.5); LYMPH # 1.8 10^3/uL (1.5-5.0); LYMPH % 30.7 % (24.0-44.0); MEAN CORPUSCULAR HEMOGLOBIN 26.9 pg (27.0-33.0); MEAN CORPUSCULAR HGB CONC 31.6 g/dl (32.0-36.5); MEAN CORPUSCULAR VOLUME 85.3 fl (80.0-96.0); MONO # 0.6 10^3/uL (0.0-0.8); MONO % 10.5 % (2.0-8.0); NEUTROPHILS # 3.4 10^3/uL (1.5-8.5); NEUTROPHILS % 58.3 % (36.0-66.0); PLATELET COUNT, AUTOMATED 307 10^3/uL (150-450); RED BLOOD COUNT 4.42 10^6/uL (4.00-5.40); WHITE BLOOD COUNT 5.8 10^3/uL (4.0-10.0)
[2020-09-08 10:53] LABS: ALBUMIN 3.6 GM/DL (3.2-5.2); ALT/SGPT 16 U/L (12-78); BILIRUBIN,TOTAL 0.2 MG/DL (0.2-1.0); BLOOD UREA NITROGEN 11 MG/DL (7-18); CALCIUM LEVEL 9.1 MG/DL (8.8-10.2); CARBON DIOXIDE LEVEL 30 MEQ/L (21-32); CHLORIDE LEVEL 106 MEQ/L (98-107); CREATININE FOR GFR 0.85 MG/DL (0.55-1.30); GLOMERULAR FILTRATION RATE > 60.0 (>45); GLUCOSE, FASTING 86 MG/DL (70-100); MAGNESIUM LEVEL 2.4 MG/DL (1.8-2.4); POTASSIUM SERUM 4.6 MEQ/L (3.5-5.1); SODIUM LEVEL 139 MEQ/L (136-145); TOTAL PROTEIN 7.7 GM/DL (6.4-8.2)
== END ==
LOC: M LAB 09:27
PROVIDERS: ATTEND Physician Assistant
DX: E42 Marasmic kwashiorkor (principal)

== ENCOUNTER 2021-02-14 16:19 | Emergency (ER) | payer OTHER ==
[~2021-02-14] VITALS: Ht 172.7 cm; Wt 90.6 kg
[~2021-02-14 16:19] MED LIST changes: +ARIP10TA32; -ARIP1TAB
--- OUTSIDE RECORDS SUMMARY | 2021-02-14 16:27 | CCD ---
Author Author Amberly Arambula Xena Organization Unknown Address [address] [address] Phone Care Team Providers Care Electronic Funds Transfer Coordinator Name Role Phone Xena Arambula PCP Allergies, Adverse Reactions, Alerts Concept Allergy Name Reaction Severity Onset Date Status Documentation Date Phone Number Npid Taxonomy Code Taxonomy Desc Author Last Name Author Fi rst Name Concept Type [id number] amantadine hcl Dizzy 03/30/2018 Active 03/03/2018 RXNORM Problem List Concept Problem Description Status Start Date Created Date Resolv ed Date Snomed Code F25.1 Schizoaffective Disorder, Depressive type Active 01/25/2021 F41.9 Unspecified Anxiety Disorder Active 01/25/2021 Medications Rx Norm Medication Route Route Concept Start Date Stop Date Dosage Joseph quency Duration Formula Strength Dosage Form Dosage Form Code Dosage Description Medication Id Account Npid Author First Name Author Last Name Taxonomy Code Taxonomy Desc Phone Number [phone] Aristada intramuscularly 07/31/2020 every four w eeks 662 mg/2.4 mL suspension,extended rel syring as directed [id number] [phone] Amberly Moore [id number] Nurse Practitioner [id number] sertraline by mouth [id number] 08/23/2020 once a day 100 mg ta blet 04210 059162 [id number] Zurdo Valencia [id number] Nurse Practitioner [id number] mirtazapine by mouth [id number] 08/23/2020 every night 15 mg t ablet 76184 [id number] Zurdo Valencia [id number] Nurse Practitioner [id number] 106132 buspirone by mouth [id number] 08/23/2020 twice a day 7.5 mg ta blet 31355 288019 [id number] Zurdo Valencia [id number] Nurse Practitioner [phone] Social History Social History Element Description Concept Effective Date Smoking Status Unknown if ever smoked [id number] Immunizations No Data in Section Vital Signs No Data in Section Procedures Date Concept Id Description Targeted Site Concept Targeted Site Concept Type 01/24/2021 37667 Injectable Psychotro pic Medication Administration (Injection Only) CPT Patient has no history of implantable de vices Encounters Encounter Start Date End Date Encounter Type Description Diagnosis Di agnosis Desc Location Author First Name Author Last Name Npid Taxonomy Cod e Taxonomy Desc Phone Number Location Addr1 Location Addr2 Location [facility] Location Sta te Location [facility] [id number] 01/24/2021 01/24/2021 80385 Injectable Psyc hotropic Medication Administration (Injection Only) F25.1 Schizoaffective disorder, de pressive type [facility] Ralf Mccallum [id number] Licensed Practical Nurse [id number] [address] [address] Plan of Treatment No Data in Section Lab Results No Data in Section Instructions No Data in Section Insurance Providers Insurance Id Policy Effective Date Policy Thru Date [employer] N thomas [id number] 2016 [id number]
--- OUTSIDE RECORDS SUMMARY | 2021-02-14 16:27 | CCD ---
Author Author Amberly Iyer Organization Unknown Address [address] [address] Phone Care Team Providers Care C T Tech Name Role Phone Jaylon Do PCP Chief Complaint and Reason for Visit Chief Complaint Allergies, Adverse Reactions, Alerts Concept Allergy Name Reaction Severity Onset Date Status Documentation Date Phone Number Npid Taxonomy Code Taxonomy Desc Author Last Name Author Fi rst Name Concept Type [id number] amantadine hcl Dizzy 03/30/2018 Active 03/03/2018 RXNORM Problem List Concept Problem Description Status Start Date Created Date Resolv ed Date Snomed Code F25.1 Schizoaffective Disorder, Depressive type Active 01/10/2021 F41.9 Unspecified Anxiety Disorder Active 01/10/2021 Medications Rx Norm Medication Route Route Concept Start Date Stop Date Dosage Joseph quency Duration Formula Strength Dosage Form Dosage Form Code Dosage Description Medication Id Account Npid Author First Name Author Last Name Taxonomy Code Taxonomy Desc Phone Number [phone] Aristada intramuscularly 07/31/2020 every four w eeks 662 mg/2.4 mL suspension,extended rel syring as directed 06201 [id number] [phone] Amberly Moore [id number] Nurse Practitioner [phone] [id number] sertraline by mouth [id number] 08/23/2020 once a day 100 mg ta blet 40610 [id number] Zurdo Valencia [id number] Nurse Practitioner [phone] 809301 mirtazapine by mouth [id number] 08/23/2020 every night 15 mg t ablet 06268 [id number] [id number] Zurdo Valencia [id number] Nurse Practitioner [phone] 843945 buspirone by mouth [id number] 08/23/2020 twice a day 7.5 mg ta blet 51304 023932 [id number] Zurdo Valencia [id number] Nurse Practitioner [phone] Social History Social History Element Description Concept Effective Date Smoking Status Unknown if ever smoked [id number] Immunizations No Data in Section Vital Signs No Data in Section Procedures Date Concept Id Description Targeted Site Concept Targeted Site Concept Type 01/10/2021 99883 Brief Individual Psychotherapy - 30 min CPT Patient has no history of implantable de vices Encounters Encounter Start Date End Date Encounter Type Description Diagnosis Di agnosis Desc Location Author First Name Author Last Name Npid Taxonomy Cod e Taxonomy Desc Phone Number Location Addr1 Location Addr2 Location [facility] Location Sta te Location Zip [id number] 01/10/2021 01/10/2021 26806 Brief Individual Psychoth erapy - 30 min F25.1 Schizoaffective disorder, depressive type [facility] [id number] Export Manager [phone] [address] [address] Plan of Treatment No Data in Section Lab Results No Data in Section Instructions No Data in Section Insurance Providers Insurance Id Policy Effective Date Policy Thru Date [employer] Daniel guzman [id number] [address]
--- OUTSIDE RECORDS SUMMARY | 2021-02-14 16:27 | CCD ---
Author Author Amberly Tejadassica Organization Unknown Address [address] [address] Phone Care Team Providers Care Wharf Tender Head Name Role Phone Catherine Tejada PCP Allergies, Adverse Reactions, Alerts Concept Allergy Name Reaction Severity Onset Date Status Documentation Date Phone Number Npid Taxonomy Code Taxonomy Desc Author Last Name Author Fi rst Name Concept Type [id number] amantadine hcl Dizzy 03/30/2018 Active 03/03/2018 RXNORM Problem List Concept Problem Description Status Start Date Created Date Resolv ed Date Snomed Code F25.1 Schizoaffective Disorder, Depressive type Active 11/21/2020 F41.9 Unspecified Anxiety Disorder Active 11/21/2020 Medications Rx Norm Medication Route Route Concept Start Date Stop Date Dosage Joseph quency Duration Formula Strength Dosage Form Dosage Form Code Dosage Description Medication Id Account Npid Author First Name Author Last Name Taxonomy Code Taxonomy Desc Phone Number [phone] Aristada intramuscularly 07/31/2020 every four w eeks 662 mg/2.4 mL suspension,extended rel syring as directed 78241 [id number] [phone] Sandra Samuel [id number] Psychiatric/Mental Health [phone] 534984 sertraline by mouth [id number] 08/23/2020 once a day 100 mg ta blet 05857 101286 [phone] Sandra Samuel [id number] Psychiatric/Mental Health [id number] [id number] mirtazapine by mouth C85096 08/23/2020 every night 15 mg t ablet 07977 895388 [phone] Sandra Samuel [id number] Psychiatric/Mental Health [id number] 429446 buspirone by mouth R24747 08/23/2020 twice a day 7.5 mg ta blet 08384 473293 [id number] Sandra Samuel [id number] Psychiatric/Mental Health [id number] Social History Social History Element Description Concept Effective Date Smoking Status Unknown if ever smoked [id number] Immunizations No Data in Section Vital Signs No Data in Section Procedures Date Concept Id Description Targeted Site Concept Targeted Site Concept Type 11/21/2020 16050 Brief Individual Psychotherapy - 30 min CPT Patient has no history of implantable de vices Encounters Encounter Start Date End Date Encounter Type Description Diagnosis Di agnosis Desc Location Author First Name Author Last Name Npid Taxonomy Cod e Taxonomy Desc Phone Number Location Addr1 Location Addr2 Location City Location [place] Location Zip [id number] 11/21/2020 11/21/2020 42426 Brief Individual Psychoth erapy - 30 min F25.1 Schizoaffective disorder, depressive type [facility] [id number] Mica Plate Layer [id number] [address] [address] Plan of Treatment No Data in Section Lab Results No Data in Section Instructions No Data in Section Insurance Providers Insurance Id Policy Effective Date Policy Thru Date Mismi N thomas [id number] 2016 [id number]
--- OUTSIDE RECORDS SUMMARY | 2021-02-14 16:27 | CCD ---
Author Author HarjitAmberly jorge Organization Unknown Address [address] [address] Phone Care Team Providers Care Treatment Plant Operator Name Role Phone Yohana Rahman PCP Allergies, Adverse Reactions, Alerts Concept Allergy Name Reaction Severity Onset Date Status Documentation Date Phone Number Npid Taxonomy Code Taxonomy Desc Author Last Name Author Fi rst Name Concept Type [id number] amantadine hcl Dizzy 03/30/2018 Active 03/03/2018 RXNORM Problem List Concept Problem Description Status Start Date Created Date Resolv ed Date Snomed Code F25.1 Schizoaffective Disorder, Depressive type Active 12/26/2020 F41.9 Unspecified Anxiety Disorder Active 12/26/2020 Medications Rx Norm Medication Route Route Concept Start Date Stop Date Dosage Joseph quency Duration Formula Strength Dosage Form Dosage Form Code Dosage Description Medication Id Account Npid Author First Name Author Last Name Taxonomy Code Taxonomy Desc Phone Number [phone] Aristada intramuscularly 07/31/2020 every four w eeks 662 mg/2.4 mL suspension,extended rel syring as directed 12977 577238 [phone] Sandra Samuel [id number] Psychiatric/Mental Health [phone] 831835 sertraline by mouth J86972 08/23/2020 once a day 100 mg ta blet 71780 787566 [phone] Zurdo Valencia [id number] Nurse Practitioner [phone] 098874 mirtazapine by mouth E29915 08/23/2020 every night 15 mg t ablet 33471 043013 [phone] Zurdo Valencia [id number] Nurse Practitioner [phone] 755399 buspirone by mouth A15694 08/23/2020 twice a day 7.5 mg ta blet 41167 928895 [id number] Zurdo Valencia [id number] Nurse Practitioner [id number] Social History Social History Element Description Concept Effective Date Smoking Status Unknown if ever smoked [id number] Immunizations No Data in Section Vital Signs No Data in Section Procedures Date Concept Id Description Targeted Site Concept Targeted Site Concept Type 12/25/2020 H2010 Injectable Medication Administra tion w/ Monitoring & Education CPT Patient has no history of implantable de vices Encounters Encounter Start Date End Date Encounter Type Description Diagnosis Di agnosis Desc Location Author First Name Author Last Name Npid Taxonomy Cod e Taxonomy Desc Phone Number Location Addr1 Location Addr2 Location [facility] Location Sta te Location Zip [id number] 12/25/2020 12/25/2020 H2010 Injectable Medi cation Administration w/ Monitoring & Education F25.1 Schizoaffective disorder, depressive type [facility] [id number] R egistered Nurse [id number] [address] [place] [phone] Plan of Treatment No Data in Section Lab Results No Data in Section Instructions No Data in Section Insurance Providers Insurance Id Policy Effective Date Policy Thru Date [employer] ([employer]) N thomas [id number] 2016 [id number]
--- OUTSIDE RECORDS SUMMARY | 2021-02-14 16:27 | CCD ---
Author Author Amberly Arambula Organization Unknown Address [address] [address] Phone Care Team Providers Care Gas Golf Cart Repairer Name Role Phone Xena Arambula PCP Allergies, Adverse Reactions, Alerts Concept Allergy Name Reaction Severity Onset Date Status Documentation Date Phone Number Npid Taxonomy Code Taxonomy Desc Author Last Name Author Fi rst Name Concept Type [id number] amantadine hcl Dizzy 03/30/2018 Active 03/03/2018 RXNORM [...] Name Taxonomy Code Taxonomy Desc Phone Number [phone] mirtazapine by mouth I02558 08/23/2020 every night 15 mg t ablet 22437 858023 [phone] Zurdo Valencia [id number] Nurse Practitioner [phone] 903894 buspirone by mouth C72089 08/23/2020 twice a day 7.5 mg ta blet 66453 125236 [phone] Zurdo Valencia [id number] Nurse Practitioner [phone] 621449 sertraline by mouth C11241 08/23/2020 once a day 100 mg ta blet 87144 204905 [phone] Zurdo Valencia [id number] Nurse Practitioner [id number] Aristada intramuscularly 07/31/2020 every four w eeks 662 mg/2.4 mL suspension,extended rel syring as directed 92846 923749 [phone] Amberly Moore [id number] Nurse Practitioner [id number] Social History Social History Element Description Concept Effective Date Smoking Status Unknown if ever smoked [id number] Immunizations No Data in Section Vital Signs No Data in Section Procedures Date Concept Id Description Targeted Site Concept Targeted Site Concept Type 01/24/2021 70670 Injectable Psychotro pic Medication Administration (Injection Only) CPT Patient has no history of implantable de vices Encounters Encounter Start Date End Date Encounter Type Description Diagnosis Di agnosis Desc Location Author First Name Author Last Name Npid Taxonomy Cod e Taxonomy Desc Phone Number Location Addr1 Location Addr2 Location [facility] Location Sta te Location [facility] [id number] 01/24/2021 01/24/2021 18898 Injectable Psyc hotropic Medication Administration (Injection Only) F25.1 Schizoaffective disorder, de pressive type [facility] Ralf Mccallum [id number] [id number] Licensed Practical Nurse [phone] [address] [address] Plan of Treatment No Data in Section Lab Results No Data in Section Instructions No Data in Section Insurance Providers Insurance Id Policy Effective Date Policy Thru Date Inotrem N thomas [id number] 2016 [id number]
--- OUTSIDE RECORDS SUMMARY | 2021-02-14 16:27 | CCD ---
Author Author HarjitAmberly jorge Organization Unknown Address [address] [address] Phone Care Team Providers Care Telegraph Plant Maintainer Name Role Phone Yohana Rahman PCP Allergies, Adverse Reactions, Alerts Concept Allergy Name Reaction Severity Onset Date Status Documentation Date Phone Number Npid Taxonomy Code Taxonomy Desc Author Last Name Author Jeremias rst Name Concept Type [id number] amantadine hcl Dizzy 03/30/2018 Active 03/03/2018 RXNORM Problem List Concept Problem Description Status Start Date Created Date Resolv ed Date Snomed Code F25.1 Schizoaffective Disorder, Depressive type Active 11/27/2020 F41.9 Unspecified Anxiety Disorder Active 11/27/2020 Medications Rx Norm Medication Route Route Concept Start Date Stop Date Dosage Joseph quency Duration Formula Strength Dosage Form Dosage Form Code Dosage Description Medication Id Account Npid Author First Name Author Last Name Taxonomy Code Taxonomy Desc Phone Number [phone] Aristada intramuscularly 07/31/2020 every four w eeks 662 mg/2.4 mL suspension,extended rel syring as directed 41072 314170 [phone] Sandra Samuel [id number] Psychiatric/Mental Health [phone] 672511 sertraline by mouth D71527 08/23/2020 once a day 100 mg ta blet 69365 544908 [id number] Sandra Samuel [id number] Psychiatric/Mental Health [id number] 282393 mirtazapine by mouth S74351 08/23/2020 every night 15 mg t ablet 50488 239809 [phone] Sandra Samuel [id number] Psychiatric/Mental Health [phone] 784953 buspirone by mouth D44145 08/23/2020 twice a day 7.5 mg ta blet 65561 469828 [phone] Sandra Samuel [id number] Psychiatric/Mental Health [phone] Social History Social History Element Description Concept Effective Date Smoking Status Unknown if ever smoked [id number] Immunizations No Data in Section Vital Signs No Data in Section Procedures Date Concept Id Description Targeted Site Concept Targeted Site Concept Type 11/27/2020 H2010 Injectable Medication Administra tion w/ Monitoring & Education CPT Patient has no history of implantable de vices Encounters Encounter Start Date End Date Encounter Type Description Diagnosis Di agnosis Desc Location Author First Name Author Last Name Npid Taxonomy Cod e Taxonomy Desc Phone Number Location Addr1 Location Addr2 Location [facility] Location Sta te Location Zip [id number] 11/27/2020 11/27/2020 H2010 Injectable Medi cation Administration w/ Monitoring & Education F25.1 Schizoaffective disorder, depressive type [facility] Yohana [id number] R egistered Nurse [phone] [address] [address] Plan of Treatment No Data in Section Lab Results No Data in Section Instructions No Data in Section Insurance Providers Insurance Id Policy Effective Date Policy Thru Date [employer] N thomas [id number] [address]
--- OUTSIDE RECORDS SUMMARY | 2021-02-14 16:28 | CCD ---
Author Author [facility] Organization [facility] Address Unknown Phone Unavailable Care Team Providers Care Supervisory Forester Name Role Phone Simon Travisley BAG LOADER BAG LOADER Unavailable Unavailable Burak, Alejandra BAG LOADER BAG LOADER Unavailable Unavailable Catherine Tejada Unavailable Do Iyer Unavailable Burak, A Alejandra BAG LOADER Unavailable Unavailable Burak, A Alejandra BAG LOADER Unavailable Unavailable Burak, A Alejandra BAG LOADER Unavailable Unavailable Burak, A Alejandra BAG LOADER Unavailable Unavailable Burak, A Alejandra BAG LOADER Unavailable Unavailable Burak, A Alejandra BAG LOADER Unavailable Unavailable Burak, A Alejandra BAG LOADER Unavailable Unavailable Burak, A Alejandra BAG LOADER Unavailable Unavailable Burak, A Alejandra BAG LOADER Unavailable Unavailable Burak, A Alejandra BAG LOADER Unavailable Unavailable Burak, A Alejandra BAG LOADER Unavailable Unavailable Burak, A Alejandra BAG LOADER Unavailable Unavailable Burak, A Alejandra BAG LOADER Unavailable Unavailable [place], A Alejandra BAG LOADER Unavailable Unavailable [place], A Alejandra BAG LOADER Unavailable Unavailable [place], A Alejandra BAG LOADER Unavailable Unavailable [place], A Alejandra BAG LOADER Unavailable Unavailable [place], A Alejandra BAG LOADER Unavailable Unavailable [place], A Alejandra BAG LOADER Unavailable Unavailable [place], A Alejandra BAG LOADER Unavailable Unavailable [place], A Alejandra BAG LOADER Unavailable Unavailable [place], A Alejandra BAG LOADER Unavailable Unavailable [place], A Alejandra BAG LOADER Unavailable Unavailable [place], A Alejandra BAG LOADER Unavailable Unavailable [place], A Alejandra BAG LOADER Unavailable Unavailable [place], A Alejandra BAG LOADER Unavailable Unavailable [place], A Alejandra BAG LOADER Unavailable Unavailable [place], A Alejandra BAG LOADER Unavailable Unavailable [place], A Alejandra BAG LOADER Unavailable Unavailable [place], A Alejandra BAG LOADER Unavailable Unavailable Burak, A Alejandra BAG LOADER Unavailable Unavailable Scordo, M Hillary PA Unavailable Unavailable Scordo, M Hillary PA Unavailable Unavailable Scordo, M Hillary PA Unavailable Unavailable Scordo, M Hillary PA Unavailable Unavailable Scordo, M Hillary PA Unavailable Unavailable Scordo, M Hillary PA Unavailable Unavailable Scordo, M Hillary PA Unavailable Unavailable Scordo, M Hillary PA Unavailable Unavailable Scordo, M Hillary PA Unavailable Unavailable Scordo, M Hillary PA Unavailable Unavailable Scordo, M Hillary PA Unavailable Unavailable Scordo, M Hillary PA Unavailable Unavailable Scordo, M Hillary PA Unavailable Unavailable Scordo, M Hillary PA Unavailable Unavailable Scordo, M Hillary PA Unavailable Unavailable Scordo, M Hillary PA Unavailable Unavailable Scordo, M Hillary PA Unavailable Unavailable Scordo, M Hillary PA Unavailable Unavailable Scordo, M Hillary PA Unavailable Unavailable Scordo, M Hillary PA Unavailable Unavailable Scordo, M Hillary PA Unavailable Unavailable Scordo, M Hillary PA Unavailable Unavailable Scordo, M Hillary PA Unavailable Unavailable Scordo, M Hillary PA Unavailable Unavailable Scordo, M Hillary PA Unavailable Unavailable Scordo, M Hillary PA Unavailable Unavailable Scordo, M Hillary PA Unavailable Unavailable Scordo, M Hillary PA Unavailable Unavailable Scordo, M Hillary PA Unavailable Unavailable Scordo, M Hillary PA Unavailable Unavailable Scordo, M Hillary PA Unavailable Unavailable Scordo, M Hillary PA Unavailable Unavailable Scordo, M Hillary PA Unavailable Unavailable Scordo, M Hillary PA Unavailable Unavailable Scordo, M Hillary PA Unavailable Unavailable Scordo, M Hillary PA Unavailable Unavailable Scordo, M Hillary PA Unavailable Unavailable Scordo, M Hillary PA Unavailable Unavailable Scordo, M Hillary PA Unavailable Unavailable Scordo, M Hillary PA Unavailable Unavailable Scordo, M Hillary PA Unavailable Unavailable Scordo, M Hillary PA Unavailable Unavailable Scordo, M Hillary PA Unavailable Unavailable Scordo, M Hillary PA Unavailable Unavailable Scordo, M Hillary PA Unavailable Unavailable Scordo, M Hillary PA Unavailable Unavailable Scordo, M Hillary PA Unavailable Unavailable Rotella, Xena Unavailable Unavailable Dixon CHOWDARY MD Unavailable Unavailable Dixon CHOWDARY MD Unavailable Unavailable Dixon CHOWDARY MD Unavailable Unavailable Dixon CHOWDARY MD Unavailable Unavailable Dixon CHOWDARY MD Unavailable Unavailable Dixon CHOWDARY MD Unavailable Unavailable Dixon CHOWDARY MD Unavailable Unavailable Dixon CHOWDARY MD Unavailable Unavailable Dixon CHOWDARY MD Unavailable Unavailable Dixon CHOWDARY MD Unavailable Unavailable Dixon CHOWDARY MD Unavailable Unavailable Dixon CHOWDARY MD Unavailable Unavailable Dixon CHOWDARY MD Unavailable Unavailable Dixon CHOWDARY MD Unavailable Unavailable Dixon CHOWDARY MD Unavailable Unavailable Dixon CHOWDARY MD Unavailable Unavailable Dixon CHOWDARY MD Unavailable Unavailable Acacia William Unavailable Veronica Flores Unavailable Yohana Rahman Unavailable VERTINO, Rosalva BABIN MD Unavailable Unavailable VERTINO, Rosalva BABIN MD Unavailable Unavailable VERTINO, Rosalva BABIN MD Unavailable Unavailable VERTINO, Rosalva BABIN MD Unavailable Unavailable VERTINO, Rosalva BABIN MD Unavailable Unavailable VERTINO, Rosalva BABIN MD Unavailable Unavailable VERTINO, Rosalva BABIN MD Unavailable Unavailable VERTINO, Rosalva BABIN MD Unavailable Unavailable VERTINO, Rosalva BABIN MD Unavailable Unavailable VERTINO, Rosalva BABIN MD Unavailable Unavailable VERTINO, Rosalva BABIN MD Unavailable Unavailable VERTINO, Rosalva BABIN MD Unavailable Unavailable VERTINO, Rosalva BABIN MD Unavailable Unavailable VERTINO, Rosalva BABIN MD Unavailable Unavailable VERTINO, Rosalva BABIN MD Unavailable Unavailable VERTINO, Rosalva BABIN MD Unavailable Unavailable VERTINO, Rosalva BABIN MD Unavailable Unavailable VERTINO, Rosalva BABIN MD Unavailable Unavailable VERTINO, Rosalva BABIN MD Unavailable Unavailable VERTINO, Rosalva BABIN MD Unavailable Unavailable VERTINO, Rosalva BABIN MD Unavailable Unavailable VERTINO, Rosalva BABIN MD Unavailable Unavailable VERTINO, Rosalva BABIN MD Unavailable Unavailable VERTINO, Rosalva BABIN MD Unavailable Unavailable VERTINO, Rosalva BABIN MD Unavailable Unavailable VERTINO, Rosalva BABIN MD Unavailable Unavailable VERTINO, Rosalva BABIN MD Unavailable Unavailable VERTINO, Rosalva BABIN MD Unavailable Unavailable VERTINO, Rosalva BABIN MD Unavailable Unavailable VERTINO, Rosalva BABIN MD Unavailable Unavailable VERTINO, Rosalva BABIN MD Unavailable Unavailable VERTINO, Rosalva BABIN MD Unavailable Unavailable VERTINO, Rosalva BABIN MD Unavailable Unavailable VERTINO, Rosalva BABIN MD Unavailable Unavailable VERTINO, Rosalva BABIN MD Unavailable Unavailable VERTINO, Rosalva BABIN MD Unavailable Unavailable VERTINO, Rosalva BABIN MD Unavailable Unavailable VERTINO, Rosalva BABIN MD Unavailable Unavailable VERTINO, Rosalva BABIN MD Unavailable Unavailable VERTINO, Rosalva BABIN MD Unavailable Unavailable VERTINO, Rosalva BABIN MD Unavailable Unavailable VERTINO, Rosalva BABIN MD Unavailable Unavailable VERTINO, Rosalva BABIN MD Unavailable Unavailable VALERIY, L ALEJANDRA PA Unavailable Unavailable VALERIY, L ALEJANDRA PA Unavailable Unavailable VALERIY, L ALEJANDRA PA Unavailable Unavailable VALERIY, L ALEJANDRA PA Unavailable Unavailable VALERIY, L ALEJANDRA PA Unavailable Unavailable VALERIY, L ALEJANDRA PA Unavailable Unavailable VALERIY, L ALEJANDRA PA Unavailable Unavailable VALERIY, L ALEJANDRA PA Unavailable Unavailable VALERIY, L ALEJANDRA PA Unavailable Unavailable VALERIY, L ALEJANDRA PA Unavailable Unavailable VALERIY, L ALEJANDRA PA Unavailable Unavailable VALERIY, L ALEJANDRA PA Unavailable Unavailable VALERIY, L ALEJANDRA PA Unavailable Unavailable VALERIY, L ALEJANDRA PA Unavailable Unavailable VALERIY, L ALEJANDRA PA Unavailable Unavailable VALERIY, L ALEJANDRA PA Unavailable Unavailable ALIASES , ORGANIZATION NPI Unavailable Unavailable ALIASES , ORGANIZATION NPI Unavailable Unavailable ALIASES , ORGANIZATION NPI Unavailable Unavailable ALIASES , ORGANIZATION NPI Unavailable Unavailable ALIASES , ORGANIZATION NPI Unavailable Unavailable ALIASES , ORGANIZATION NPI Unavailable Unavailable ALIASES , ORGANIZATION NPI Unavailable Unavailable ALIASES , ORGANIZATION NPI Unavailable Unavailable ALIASES , ORGANIZATION NPI Unavailable Unavailable ALIASES , ORGANIZATION NPI Unavailable Unavailable ALIASES , ORGANIZATION NPI Unavailable Unavailable ALIASES , ORGANIZATION NPI Unavailable Unavailable ALIASES , ORGANIZATION NPI Unavailable Unavailable ALIASES , ORGANIZATION NPI Unavailable Unavailable ALIASES , ORGANIZATION NPI Unavailable Unavailable ALIASES , ORGANIZATION NPI Unavailable Unavailable ALIASES , ORGANIZATION NPI Unavailable Unavailable ALIASES , ORGANIZATION NPI Unavailable Unavailable ALIASES , ORGANIZATION NPI Unavailable Unavailable ALIASES , ORGANIZATION NPI Unavailable Unavailable ALIASES , ORGANIZATION NPI Unavailable Unavailable ALIASES , ORGANIZATION NPI Unavailable Unavailable ALIASES , ORGANIZATION NPI Unavailable Unavailable ALIASES , ORGANIZATION NPI Unavailable Unavailable ALIASES , ORGANIZATION NPI Unavailable Unavailable ALIASES , ORGANIZATION NPI Unavailable Unavailable ALIASES , ORGANIZATION NPI Unavailable Unavailable ALIASES , ORGANIZATION NPI Unavailable Unavailable ALIASES , ORGANIZATION NPI Unavailable Unavailable ALIASES , ORGANIZATION NPI Unavailable Unavailable ALIASES , ORGANIZATION NPI Unavailable Unavailable ALIASES , ORGANIZATION NPI Unavailable Unavailable ALIASES , ORGANIZATION NPI Unavailable Unavailable ALIASES , ORGANIZATION NPI Unavailable Unavailable ALIASES , ORGANIZATION NPI Unavailable Unavailable ALIASES , ORGANIZATION NPI Unavailable Unavailable ALIASES , ORGANIZATION NPI Unavailable Unavailable ALIASES , ORGANIZATION NPI Unavailable Unavailable ALIASES , ORGANIZATION NPI Unavailable Unavailable ALIASES , ORGANIZATION NPI Unavailable Unavailable ALIASES , ORGANIZATION NPI Unavailable Unavailable ALIASES , ORGANIZATION NPI Unavailable Unavailable ALIASES , ORGANIZATION NPI Unavailable Unavailable ALIASES , ORGANIZATION NPI Unavailable Unavailable ALIASES , ORGANIZATION NPI Unavailable Unavailable ALIASES , ORGANIZATION NPI Unavailable Unavailable ALIASES , ORGANIZATION NPI Unavailable Unavailable ALIASES , ORGANIZATION NPI Unavailable Unavailable ALIASES , ORGANIZATION NPI Unavailable Unavailable ALIASES , ORGANIZATION NPI Unavailable Unavailable ALIASES , ORGANIZATION NPI Unavailable Unavailable ALIASES , ORGANIZATION NPI Unavailable Unavailable ALIASES , ORGANIZATION NPI Unavailable Unavailable ALIASES , ORGANIZATION NPI Unavailable Unavailable ALIASES , ORGANIZATION NPI Unavailable Unavailable ALIASES , ORGANIZATION NPI Unavailable Unavailable ALIASES , ORGANIZATION NPI Unavailable Unavailable ALIASES , ORGANIZATION NPI Unavailable Unavailable ALIASES , ORGANIZATION NPI Unavailable Unavailable ALIASES , ORGANIZATION NPI Unavailable Unavailable ALIASES , ORGANIZATION NPI Unavailable Unavailable ALIASES , ORGANIZATION NPI Unavailable Unavailable ALIASES , ORGANIZATION NPI Unavailable Unavailable ALIASES , ORGANIZATION NPI Unavailable Unavailable ALIASES , ORGANIZATION NPI Unavailable Unavailable ALIASES , ORGANIZATION NPI Unavailable Unavailable ALIASES , ORGANIZATION NPI Unavailable Unavailable ALIASES , ORGANIZATION NPI Unavailable Unavailable ALIASES , ORGANIZATION NPI Unavailable Unavailable ALIASES , ORGANIZATION NPI Unavailable Unavailable ALIASES , ORGANIZATION NPI Unavailable Unavailable ALIASES , ORGANIZATION NPI Unavailable Unavailable ALIASES , ORGANIZATION NPI Unavailable Unavailable ALIASES , ORGANIZATION NPI Unavailable Unavailable ALIASES , ORGANIZATION NPI Unavailable Unavailable MACQUEEN, REGINA NOTCH GRINDER Unavailable Unavailable MACQUEEN, REGINA NOTCH GRINDER Unavailable Unavailable MACQUEEN, REGINA NOTCH GRINDER Unavailable Unavailable MACQUEEN, REGINA NOTCH GRINDER Unavailable Unavailable MACQUEEN, REGINA NOTCH GRINDER Unavailable Unavailable MACQUEEN, REGINA NOTCH GRINDER Unavailable Unavailable MACQUEEN, REGINA NOTCH GRINDER Unavailable Unavailable MACQUEEN, REGINA NOTCH GRINDER Unavailable Unavailable MACQUEEN, REGINA NOTCH GRINDER Unavailable Unavailable MACQUEEN, REGINA NOTCH GRINDER Unavailable Unavailable SYSTEM, NOT IN PROVIDER Unavailable Unavailable Barryton, K Sandra PMH-NOTCH GRINDER Unavailable Unavailable Barryton, K Sandra PMH-NOTCH GRINDER Unavailable Unavailable Jimmie, K Sandra PMH-NOTCH GRINDER Unavailable Unavailable Jimmie, K Sandra PMH-NOTCH GRINDER Unavailable Unavailable Jimmie, K Sandra PMH-NOTCH GRINDER Unavailable Unavailable Barryton, K Sandra PMH-NOTCH GRINDER Unavailable Unavailable Barryton, K Sandra PMH-NOTCH GRINDER Unavailable Unavailable Jimmie, K Sandra PMH-NOTCH GRINDER Unavailable Unavailable Travis, F Gemma BAG LOADER-BC Unavailable Unavailable Travis, F Gemma BAG LOADER-BC Unavailable Unavailable Travis, F Gemma BAG LOADER-BC Unavailable Unavailable Travis, F Gemma BAG LOADER-BC Unavailable Unavailable Travis, F Gemma BAG LOADER-BC Unavailable Unavailable Travis, F Gemma BAG LOADER-BC Unavailable Unavailable Travis, F Gemma BAG LOADER-BC Unavailable Unavailable Travis, F Gemma BAG LOADER-BC Unavailable Unavailable Travis, F Gemma BAG LOADER-BC Unavailable Unavailable Travis, F Gemma BAG LOADER-BC Unavailable Unavailable Travis, F Gemma BAG LOADER-BC Unavailable Unavailable Travis, F Gemma BAG LOADER-BC Unavailable Unavailable Travis, F Gemma BAG LOADER-BC Unavailable Unavailable Travis, F Gemma BAG LOADER-BC Unavailable Unavailable Travis, F Gemma BAG LOADER-BC Unavailable Unavailable Travis, F Gemma BAG LOADER-BC Unavailable Unavailable Travis, F Gemma BAG LOADER-BC Unavailable Unavailable Travis, F Gemma BAG LOADER-BC Unavailable Unavailable Travis, F Gemma BAG LOADER-BC Unavailable Unavailable Travis, F Gemma BAG LOADER-BC Unavailable Unavailable Travis, F Gemma BAG LOADER-BC Unavailable Unavailable Thaddeus, Dixon Menendez BAG LOADER-BC Unavailable Unavailable Dixon Travis BAG LOADER-BC Unavailable Unavailable Re-disclosure Warning The records that you are about to access may contain information from federally-assisted alcohol or drug abuse programs. If such information is present, then the following federally mandated warning applies: This information has been disclosed to you from records protected by federal confidentiality rules (42 CFR part 2). The federal rules prohibit you from making any further disclosure of this information unless further disclosure is expressly permitted by the written consent of the person to whom it pertains or as otherwise permitted by 42 CFR part 2. A general authorization for the release of medical or other information is NOT sufficient for this purpose. The Federal rules restrict any use of the information to criminally investigate or prosecute any alcohol or drug abuse patient.The records that you are about to access may contain highly sensitive health information, the redisclosure of which is protected by Article 27-F of the [facility] Public Health law. If you continue you may have access to information: Regarding HIV / AIDS; Provided by facilities licensed or operated by the [facility] Office of Mental Health; or Provided by the [facility] Office for People With Developmental Disabilities. If such information is present, then the following [facility] mandated warning applies: This information has been disclosed to you from confidential records which are protected by state law. State law prohibits you from making any further disclosure of this information without the specific written consent of the person to whom it pertains, or as otherwise permitted by law. Any unauthorized further disclosure in violation of state law may result in a fine or nursing home sentence or both. A general authorization for the release of medical or other information is NOT sufficient authorization for further disc losure. Allergies and Adverse Reactions Type Description Substance Reaction Status Data Source(s ) Propensity to adverse reactions to substance amantadine hcl Amantadine Hydrochloride 100 MG Oral Capsule Active [facility] ([facility]) Family History Family Member Name Family Member Gender Family Member Status Date o f Status Description Data Source(s) Unknown Unknown Problem [facility] ([facility], ) 1 BROTHER Encounters Encounter Providers Location Date Indications Data Source(s ) Injectable Psychotropic Medication Administration (Inj ection Only) Attender: Xena Arambula [facility] 01/24/2021 02:30:00 AM EDT - 01/24/2021 02:30:00 AM EDT [facility] ([facility]) Attender: Xena Arambula 01/24/2021 12:00:00 AM EDT [facility] ([facility]) Brief Individual Psychotherapy - 30 min Attender: Do madrid [facility] 01/10/2021 12:30:00 PM EDT - 01/10/2021 12:30:00 PM EDT [facility] ([facility]) Attender: Do Iyer 01/10/2021 12:00:00 AM EDT [facility] ([facility]) Injectable Medication Administration w/ Monitoring & E ducation Attender: [facility] 12/25/2020 11:00:00 AM EDT - 12/25/2020 11:00:00 AM EDT [facility] ([facility]) Attender: Yohana Rahman 12/25/2020 12:00:00 AM EDT [facility] ([facility]) Injectable Medication Administration w/ Monitoring & E ducation [facility] 11:30:00 AM EDT - 11/27/2020 11:30:00 AM EDT [facility] ([facility]) Attender: Yohana Rahman 11/27/2020 12:00:00 AM EDT [facility] ([facility]) Brief Individual Psychotherapy - 30 min Attender: Catherine mendes [facility] 11/21/2020 10:00:00 AM EDT - 11/21/2020 10:00:00 AM EDT [facility] ([facility]) Attender: Catherine Tejada 11/21/2020 12:00:0 0 AM EDT [facility] ([facility]) Injectable Medication Administration w/ Monitoring & E ducation [facility] 11:30:00 AM EDT - 10/26/2020 11:30:00 AM EDT [facility] ([facility]) Brief Individual Psychotherapy - 30 min Attender: Catherine mendes [facility] 10/26/2020 11:15:00 AM EDT - 10/26/2020 11:15:00 AM EDT [facility] ([facility]) Attender: Catherine Tejada 10/26/2020 12:00:0 0 AM EDT [facility] ([facility]) Attender: Yohana Rahman 10/26/2020 12:00:00 AM EDT [facility] ([facility]) Injectable Medication Administration w/ Monitoring & E ducation Attender: [facility] 09/29/2020 01:00:00 AM EDT - 09/29/2020 01:00:00 AM EDT [facility] ([facility]) Attender: Yohana Daleania 09/29/2020 12:00:00 AM EDT [facility] ([facility]) Outpatient Attender: ALEJANDRA CROOKS PA Main Office 09/04/2020 0 1:00:00 PM EDT [facility] ([facility]) Injectable Medication Administration w/ Monitoring & E ducation Attender: [facility] 09/01/2020 02:00:00 AM EDT - 09/01/2020 02:00:00 AM EDT [facility] ([facility]) Attender: Yohana Daleania 09/01/2020 12:00:00 AM EDT [facility] ([facility]) Injectable Medication Administration w/ Monitoring & E ducation Attender: [facility] 08/03/2020 03:00:00 AM EDT - 08/03/2020 03:00:00 AM EDT [facility] ([facility]) Extended Individual Psychotherapy - 45 min [facility] 02:00:00 AM EDT - 08/03/2020 02:00:00 AM EDT [facility] ([facility]) Attender: Yohana Rahman 08/03/2020 12:00:00 AM EDT [facility] ([facility]) Attender: Catherine Tejada 08/03/2020 12:00:0 0 AM EDT [facility] ([facility]) Outpatient Referrer: PROVIDER SYSTEM [address] [place] [address] 07/10/2020 07:5 0:00 PM EDT schizoaffective, SI, paranoid [facility] schizoaffective, SI, paranoid Injectable Psychotropic Medication Administration (Inj ection Only) Attender: Xena Arambula [facility] 07/10/2020 02:00:00 AM EDT - 07/10/2020 02:00:00 AM EDT [facility] ([facility]) Brief Individual Psychotherapy - 30 min Attender: Catherine mendes [facility] 07/10/2020 01:30:00 AM EDT - 07/10/2020 01:30:00 AM EDT [facility] ([facility]) Attender: Catherine Tejada 07/10/2020 12:00:0 0 AM EDT [facility] ([facility]) Attender: Xena Arambula 07/10/2020 12:00:00 AM EDT [facility] ([facility]) Attender: Acacia William 06/29/2020 12:00:00 AM EDT [facility] ([facility]) Injectable Psychotropic Medication Administration (Inj ection Only) Attender: Acacia SantiagoRaul [facility] 06/28/2020 01:00:00 AM EDT - 06/28/2020 01:00:00 AM EDT [facility] ([facility]) Injectable Psychotropic Medication Administration (Inj ection Only) Attender: Acacia William [facility] 05/31/2020 09:30:00 AM EST - 05/31/2020 09:30:00 AM EST [facility] ([facility]) Outpatient Attender: Sandra Samuel [facility] 05/31/2020 08:45:00 AM EST - 05/31/2020 08:45:00 AM EST [facility] ([facility]) Attender: Sandra WEIRCYNTHIA 05/31/2020 12: 00:00 AM EST [facility] ([facility]) Attender: Acacia William 05/31/2020 12:00:00 AM EST [facility] ([facility]) [facility]: [facility] 05/25/2020 11:00:00 AM EST - 05/25/2020 11:00:00 AM EST [facility] ([facility]) Attender: Sandra WEIRCYNTHIA 05/25/2020 12: 00:00 AM EST [facility] ([facility]) Extended Individual Psychotherapy - 45 min [facility]2020 01:45:00 AM EST - 05/19/2020 01:45:00 AM EST [facility] ([facility]) Attender: Catherine Tejada 05/19/2020 12:00:0 0 AM EST [facility] ([facility]) Extended Individual Psychotherapy - 45 min Attender: Lorraine muller [facility] 05/09/2020 10:45:00 AM EST - 05/09/2020 10:45:00 AM EST [facility] ([facility]) Attender: Catherine Tejada 05/09/2020 12:00:0 0 AM EST [facility] ([facility]) Injectable Medication Administration w/ Monitoring & E ducation Attender: ORGANIZATION NPI ALIASES [facility] 05/04/2020 09:00: 00 AM EST - 05/04/2020 09:00:00 AM EST [facility] ([facility]) Outpatient Attender: REGINA PITTMAN NP [facility] rosalva 05/04/2020 03:00:00 AM EST - 05/04/2020 03:00:00 AM EST [facility] ([facility]) Attender: ORGANIZATION NPI ALIASES * 05/04/2020 12:00:00 AM EST [facility] ([facility]) Attender: REGINA PITTMAN NP 05/04/2020 12:00:00 AM EST [facility] ([facility]) Injectable Psychotropic Medication Administration (Inj ection Only) Attender: ORGANIZATION NPI ALIASES [facility] 05/01/2020 09:00: 00 AM EST - 05/01/2020 09:00:00 AM EST [facility] ([facility]) Attender: ORGANIZATION NPI ALIASES * 05/01/2020 12:00:00 AM EST [facility] ([facility]) Extended Individual Psychotherapy - 45 min [facility] 04[facility] 11:30:00 AM EST - 04/24/2020 11:30:00 AM EST [facility] ([facility]) Attender: Catherine Tejada 04/24/2020 12:00:0 0 AM EST [facility] ([facility]) Outpatient [facility]: [facility] 04/20/2020 09:00:00 AM EST - 04/20/2020 09:00:00 AM EST [facility] ([facility]) Outpatient Attender: Sandra [facility] 04/20/2020 09:00:00 AM EST - 04/20/2020 09:00:00 AM EST [facility] ([facility]) Attender: Sandra HANNA 04/20/2020 12: 00:00 AM EST [facility] ([facility]) Hillary Jarrett PA-C: [address] [place] [phone], Ph. Attender: Hillary COY [facility] Medical 04/19/2020 12:00:00 AM EST [facility] ([facility]) Injectable Psychotropic Medication Administration (Inj ection Only) [facility] 04/03/2020 11:30:00 AM EST - 04/03/2020 11:30:00 AM EST [facility] ([facility]) [facility]: [facility] 04/03/2020 12:00:00 AM EST [facility] ([facility]) Injectable Psychotropic Medication Administration (Inj ection Only) [facility] 03/31/2020 10:00:00 AM EST - 03/31/2020 10:00:00 AM EST [facility] ([facility]) [facility] 03/31/2020 12:00:00 AM EST [facility] ([facility]) Outpatient Attender: Sandra Samuel [facility] 03/29/2020 09:30:00 AM EST - 03/29/2020 09:30:00 AM EST [facility] ([facility]) Attender: Sandra Samuel [facility] 03/29/2020 12: 00:00 AM EST [facility] ([facility]) Extended Individual Psychotherapy - 45 min Attender: Lorraine Tejada [facility] 03/21/2020 10:45:00 AM EST - 03/21/2020 10:45:00 AM EST [facility] ([facility]) Attender: Catherine Tejada 03/21/2020 12:00:0 0 AM EST [facility] ([facility]) Outpatient Attender: Sandra Samuel [facility] 02/24/2020 11:30:00 AM EST - 02/24/2020 11:30:00 AM EST [facility] ([facility]) Attender: Sandra Samuel [facility] 02/24/2020 12: 00:00 AM EST [facility] ([facility]) TEMPMHCTelemed 30" Psychotherapy Attender: Catherine thurman [facility] 02/22/2020 11:45:00 AM EST - 02/22/2020 11:45:00 AM EST [facility] ([facility]) Attender: Catherine Tejada 02/22/2020 12:00:0 0 AM EST [facility] ([facility]) Hillary Jarrett PA-C: [address], [place] [address], Ph. Attender: Hillary COY [facility] Medical 02/02/2020 12:00:00 AM EDT [facility] ([facility]) Hillary Jarrett PA-C: [address], [place] [address], Ph. Attender: Hillary COY [facility] Medical 02/02/2020 12:00:00 AM EDT [facility] ([facility]) Outpatient Attender: Alejandra MCCOLLUM FP 01/29/2020 08:4 3:[address] [facility] TEMPMHCTelemed 30" Psychotherapy Attender: Catherine thurman [facility] 01/27/2020 09:45:00 AM EDT - 01/27/2020 09:45:00 AM EDT [facility] ([facility]) Attender: Catherine Tejada 01/27/2020 12:00:0 0 AM EDT [facility] ([facility]) Outpatient Attender: VEDA MCCOLLUM FP 01/26/2020 09:39:[address] [facility] Outpatient Attender: Sandra Samuel [facility] 01/24/2020 01:00:00 AM EDT - 01/24/2020 01:00:00 AM EDT [facility] ([facility]) Attender: Sandra Samuel [facility] 01/24/2020 12: 00:00 AM EDT [facility] ([facility]) Outpatient Attender: VEDA MCCOLLUM 01/04/2020 11:24:[address] [facility] Injectable Medication Administration w/ Monitoring & E ducation Attender: Veronica Flores [facility] 01/03/2020 10:30:00 AM EDT - 01/03/2020 10:30:00 AM EDT [facility] ([facility]) Outpatient Attender: FREIDA CHOWDARY MD [facility] 01/03/2020 10:15:00 AM EDT - 01/03/2020 10:15:00 AM EDT [facility] ([facility]) Attender: FREIDA CHOWDARY MD 01/03/2020 12:00:00 A M EDT [facility] ([facility]) Attender: Veronica Flores 01/03/2020 12:00:00 AM EDT [facility] ([facility]) Outpatient Attender: OLAF ARRIOLA MD 01/03/2020 12:00:0 0 AM [facility] Injectable Medication Administration w/ Monitoring & E ducation Attender: Veronica Flores [facility] 12/31/2019 09:30:00 AM EDT - 12/31/2019 09:30:00 AM EDT [facility] ([facility]) Outpatient Attender: VEDA MCKEON 12/31/2019 07:43:[address] [facility] Attender: Veronica Flores 12/31/2019 12:00:00 AM EDT [facility] ([facility]) Outpatient Attender: VEDA MCKEON 12/30/2019 11:52:[address] [facility] Injectable Medication Administration w/ Monitoring & E ducation Attender: Veronica Flores [facility] 12/30/2019 09:30:00 AM EDT - 12/30/2019 09:30:00 AM EDT [facility] ([facility]) Attender: Veronica Flores 12/30/2019 12:00:00 AM EDT [facility] ([facility]) Outpatient Attender: Gemma Travis BAG LOADER-BC FP 12/26/2019 10: 59:[address] [facility] Outpatient Attender: Sandra Samuel [facility] Lenard Skinner 12/22/2019 01:30:00 AM EDT - 12/22/2019 01:30:00 AM EDT [facility] ([facility]) Attender: Sandra FELDMAN-MARYANN 12/22/2019 12: 00:00 AM EDT [facility] ([facility]) Outpatient [address] [address] 3669-[employer] Integration Team 10/28/2016 02:30:00 PM EDT - 01/24/2021 12:00:00 PM EDT [facility] ([facility]) Patient discharged. Functional Status Immunizations Vaccine Date Status Description Data Source(s) COVID-19 VACCINE Sharla 09/07/2020 12:00:00 AM EDT completed DexcomSIIS Vaccine Series Complete: YESThis Data wa s Submitted to [facility] Via [employer]. Medications Medication Brand Name Start Date Product Form Dose Route Admi nistrative Instructions Pharmacy Instructions Status Indications Reaction Description Data Source(s) ferrous sulfate 325 MG Oral Tablet Ferrous Sulfate 09/03/2020 12:00 :00 AM EDT ORAL active [facility] ([facility]) buspirone hydrochloride 7.5 MG Oral Tablet Buspirone HCL 09/03/2020 12:00:00 AM EDT ORAL active [facility] ([facility]) Mirtazapine 15 MG Oral Tablet Mirtazapine 09/03/2020 12:00:00 AM EDT ORAL active [facility] ([facility]) Sertraline 25 MG Oral Tablet Sertraline HCL 09/03/2020 12:00:00 AM EDT ORAL active [facility] ([facility]) Sertraline 100 MG Oral Tablet Sertraline HCL 09/03/2020 12:00:00 AM E DT ORAL active [facility] ([facility]) Aristada Aristada 09/03/2020 12:00:00 AM EDT activ e [facility] ([facility]) Cholecalciferol 1000 UNT Oral Tablet Vitamin D3 09/03/2020 12:00:00 A M EDT ORAL active [facility] ([facility]) Sertraline 25 MG Oral Tablet sertraline 08/23/2020 12:00:00 AM EDT 25 mg by mouth completed <td ID="Medica tionRxNorm_5">189768</td><td ID="MedicationMedication_5">sertraline</td><td ID="MedicationRoute_5">by mouth</td><td ID="MedicationRouteConcept_5">C29206</td><td ID="MedicationStartDate_5">08/23/2020</td><td ID="MedicationStopDate_5">10/22/2020</td><td ID="MedicationDosageFrequency_5">once a day</td><td ID="MedicationDuration_5">30</td><td ID="MedicationFormulaStrength_5">25 mg</td><td ID="MedicationDosageForm_5">tablet</td><td ID="MedicationDosageFormCode_5"></td><td ID="MedicationDosageDescription_5"></td><td ID="MedicationMedicationId_5">[id number]</td><td ID="MedicationAccount_5">[id number]</td><td ID="MedicationNpid_5">[id number]</td><td ID="MedicationAuthorFirstName_5">Sandra</td><td ID="MedicationAuthorLastName_5">Jimmie</td><td ID="MedicationTaxonomyCode_5">[id number]</td><td ID="MedicationTaxonomyDesc_5">Psychiatric/Mental Health</td><td ID="MedicationPhoneNumber_5">[phone]</td> [facility] ([facility]) Sertraline 100 MG Oral Tablet sertraline 08/23/2020 12:00:00 AM EDT 100 mg by mouth completed <td ID="Medica tionRxNorm_3">065975</td><td ID="MedicationMedication_3">sertraline</td><td ID="MedicationRoute_3">by mouth</td><td ID="MedicationRouteConcept_3">R95037</td><td ID="MedicationStartDate_3">08/23/2020</td><td ID="MedicationStopDate_3"></td><td ID="MedicationDosageFrequency_3">once a day</td><td ID="MedicationDuration_3"></td><td ID="MedicationFormulaStrength_3">100 mg</td><td ID="MedicationDosageForm_3">tablet</td><td ID="MedicationDosageFormCode_3"></td><td ID="MedicationDosageDescription_3"></td><td ID="MedicationMedicationId_3">[id number]</td><td ID="MedicationAccount_3">[id number]</td><td ID="MedicationNpid_3">[id number]</td><td ID="MedicationAuthorFirstName_3">Zurdo</td><td ID="MedicationAuthorLastName_3">Valencia</td><td ID="MedicationTaxonomyCode_3">[id number]</td><td ID="MedicationTaxonomyDesc_3">Nurse Practitioner</td><td ID="MedicationPhoneNumber_3">[phone]</td> [facility] Sertraline 100 MG Oral Tablet sertraline 08/23/2020 12:00:00 AM EDT 100 mg by mouth completed <td ID="Medica tionRxNorm_2">261384</td><td ID="MedicationMedication_2">sertraline</td><td ID="MedicationRoute_2">by mouth</td><td ID="MedicationRouteConcept_2">I71969</td><td ID="MedicationStartDate_2">08/23/2020</td><td ID="MedicationStopDate_2"></td><td ID="MedicationDosageFrequency_2">once a day</td><td ID="MedicationDuration_2"></td><td ID="MedicationFormulaStrength_2">100 mg</td><td ID="MedicationDosageForm_2">tablet</td><td ID="MedicationDosageFormCode_2"></td><td ID="MedicationDosageDescription_2"></td><td ID="MedicationMedicationId_2">[id number]</td><td ID="MedicationAccount_2">[id number]</td><td ID="MedicationNpid_2">[id number]</td><td ID="MedicationAuthorFirstName_2">Zurdo</td><td ID="MedicationAuthorLastName_2">Valencia</td><td ID="MedicationTaxonomyCode_2">[id number]</td><td ID="MedicationTaxonomyDesc_2">Nurse Practitioner</td><td ID="MedicationPhoneNumber_2">[phone]</td> [facility] ([facility]) Mirtazapine 15 MG Oral Tablet mirtazapine 08/23/2020 12:00:00 AM EDT 15 mg by mouth completed <td ID="Medica tionRxNorm_1">031261</td><td ID="MedicationMedication_1">mirtazapine</td><td ID="MedicationRoute_1">by mouth</td><td ID="MedicationRouteConcept_1">B27391</td><td ID="MedicationStartDate_1">08/23/2020</td><td ID="MedicationStopDate_1"></td><td ID="MedicationDosageFrequency_1">every night</td><td ID="MedicationDuration_1"></td><td ID="MedicationFormulaStrength_1">15 mg</td><td ID="MedicationDosageForm_1">tablet</td><td ID="MedicationDosageFormCode_1"></td><td ID="MedicationDosageDescription_1"></td><td ID="MedicationMedicationId_1">[id number]</td><td ID="MedicationAccount_1">[id number]</td><td ID="MedicationNpid_1">[id number]</td><td ID="MedicationAuthorFirstName_1">Zurdo</td><td ID="MedicationAuthorLastName_1">Valencia</td><td ID="MedicationTaxonomyCode_1">[id number]</td><td ID="MedicationTaxonomyDesc_1">Nurse Practitioner</td><td ID="MedicationPhoneNumber_1">[phone]</td> [facility] Mirtazapine 15 MG Oral Tablet mirtazapine 08/23/2020 12:00:00 AM EDT 15 mg by mouth completed <td ID="Medica tionRxNorm_3">317002</td><td ID="MedicationMedication_3">mirtazapine</td><td ID="MedicationRoute_3">by mouth</td><td ID="MedicationRouteConcept_3">W74273</td><td ID="MedicationStartDate_3">08/23/2020</td><td ID="MedicationStopDate_3"></td><td ID="MedicationDosageFrequency_3">every night</td><td ID="MedicationDuration_3"></td><td ID="MedicationFormulaStrength_3">15 mg</td><td ID="MedicationDosageForm_3">tablet</td><td ID="MedicationDosageFormCode_3"></td><td ID="MedicationDosageDescription_3"></td><td ID="MedicationMedicationId_3">[id number]</td><td ID="MedicationAccount_3">[id number]</td><td ID="MedicationNpid_3">[id number]</td><td ID="MedicationAuthorFirstName_3">Zurdo</td><td ID="MedicationAuthorLastName_3">Valencia</td><td ID="MedicationTaxonomyCode_3">[id number]</td><td ID="MedicationTaxonomyDesc_3">Nurse Practitioner</td><td ID="MedicationPhoneNumber_3">[phone]</td> [facility] ([facility]) buspirone hydrochloride 7.5 MG Oral Tablet buspirone 08/23 12:00:00 AM EDT 7.5 mg by mouth completed <td ID="Medic ationRxNorm_2">519287</td><td ID="MedicationMedication_2">buspirone</td><td ID="MedicationRoute_2">by mouth</td><td ID="MedicationRouteConcept_2">B36921</td><td ID="MedicationStartDate_2">08/23/2020</td><td ID="MedicationStopDate_2"></td><td ID="MedicationDosageFrequency_2">twice a day</td><td ID="MedicationDuration_2"></td><td ID="MedicationFormulaStrength_2">7.5 mg</td><td ID="MedicationDosageForm_2">tablet</td><td ID="MedicationDosageFormCode_2"></td><td ID="MedicationDosageDescription_2"></td><td ID="MedicationMedicationId_2">[id number]</td><td ID="MedicationAccount_2">[id number]</td><td ID="MedicationNpid_2">[id number]</td><td ID="MedicationAuthorFirstName_2">Zurdo</td><td ID="MedicationAuthorLastName_2">Valencia</td><td ID="MedicationTaxonomyCode_2">[id number]</td><td ID="MedicationTaxonomyDesc_2">Nurse Practitioner</td><td ID="MedicationPhoneNumber_2">[phone]</td> [facility] ([facility]) buspirone hydrochloride 7.5 MG Oral Tablet buspirone 08/23 12:00:00 AM EDT 7.5 mg by mouth completed <td ID="Medic ationRxNorm_4">944706</td><td ID="MedicationMedication_4">buspirone</td><td ID="MedicationRoute_4">by mouth</td><td ID="MedicationRouteConcept_4">X46260</td><td ID="MedicationStartDate_4">08/23/2020</td><td ID="MedicationStopDate_4"></td><td ID="MedicationDosageFrequency_4">twice a day</td><td ID="MedicationDuration_4"></td><td ID="MedicationFormulaStrength_4">7.5 mg</td><td ID="MedicationDosageForm_4">tablet</td><td ID="MedicationDosageFormCode_4"></td><td ID="MedicationDosageDescription_4"></td><td ID="MedicationMedicationId_4">[id number]</td><td ID="MedicationAccount_4">[id number]</td><td ID="MedicationNpid_4">[id number]</td><td ID="MedicationAuthorFirstName_4">Zurdo</td><td ID="MedicationAuthorLastName_4">Valencia</td><td ID="MedicationTaxonomyCode_4">[id number]</td><td ID="MedicationTaxonomyDesc_4">Nurse Practitioner</td><td ID="MedicationPhoneNumber_4">[phone]</td> [facility] ([facility]) montelukast 10 MG Oral Tablet MONTELUKAST SODIUM 07/31/2020 12:0 0:00 AM EDT tablet 30 TAKE ONE TABLET BY MOUTH EVERY D AY FOR ALLERGIES TAKE ONE TABLET BY MOUTH EVERY DAY FOR ALLERGIES SOLD: 07/31/2020 [facility] 10 mg 07/31/2020 12:00:00 AM EDT tablet 30 TAKE ONE TABLET BY MOUTH EVERY DAY FOR MOOD TAKE ONE TABLET BY MOUTH EVERY DAY FOR MOOD SOLD: 07/31/2020 [facility] 50 mcg (2,000 unit) 07/31/2020 12:00:00 AM EDT capsule 30 TAKE ONE CAPSULE BY MOUTH EVERY DAY TAKE ONE CAPSULE BY MOUTH EVERY DAY SOLD: 07/31/2020 [facility] 90 mcg/actuation 07/31/2020 12:00:00 AM EDT HFA aerosol inha ler 8 INHALE ONE PUFF BY MOUTH EVERY 4 HOURS NEEDED FOR SHORTNESS OF BREATH MAXIMUM DAILY DOSE = 6 PUFFS INHALE ONE PUFF BY MOUTH EVERY 4 HOURS A S NEEDED FOR SHORTNESS OF BREATH MAXIMUM DAILY DOSE = 6 PUFFS SOLD: 07/31/2020 [facility] 1 mg 07/31/2020 12:00:00 AM EDT tablet 30 TAKE ONE TABLET BY MOUTH EVERY DAY TAKE ONE TABLET BY MOUTH EVERY DAY SOLD: 07/31/2020 [facility] 25 mg 07/31/2020 12:00:00 AM EDT tablet 30 TAKE ONE TABLET BY MOUTH EVERY DAY TAKE ONE TABLET BY MOUTH EVERY DAY SOLD: 07/31/2020 [facility] 662 mg/2.4 mL 07/31/2020 12:00:00 AM EDT suspension,extended rel syring 2 INJECT 662MG INTRAMUSCULARLY ONCE A MONTH FOR PSYCHOSIS INJECT 662MG INTRAMUSCULARLY ONCE A MONTH FOR PSYCHOSIS SOLD: 07/31/2020 [facility] atorvastatin 20 MG Oral Tablet ATORVASTATIN CALCIUM 07/31/2020 1 2:00:00 AM EDT tablet 30 TAKE ONE TABLET BY MOUTH EVERY D AY FOR CHOLESTEROL TAKE ONE TABLET BY MOUTH EVERY DAY FOR CHOLESTEROL SOLD: 07/31/2020 [facility] 1,000 mg 07/31/2020 12:00:00 AM EDT tablet 60 TAKE ONE TABLET BY MOUTH TWICE A DAY AT 8:00AM AND 8:00PM TAKE ONE TABLET BY MOUTH TWICE A DAY AT 8:00AM AND 8:00PM SOLD: 07/31/2020 [facility] 100 mg 07/31/2020 12:00:00 AM EDT tablet 30 TAKE ONE TABLET BY MOUTH EVERY DAY TAKE ONE TABLET BY MOUTH EVERY DAY SOLD: 07/31/2020 [facility] 5 mg 07/31/2020 12:00:00 AM EDT tablet,delayed release (DR/EC) 14 TAKE ONE TABLET BY MOUTH EVERY DAY NEEDED FOR CONSTIPATION TAKE ONE TABLET BY MOUTH EVERY DAY NEEDED FOR CONSTIPATION SOLD: 07/31/2020 [facility] Aristada Aristada 07/31/2020 12:00:00 AM EDT 662 mg/2.4 completed <td ID="MedicationRxNorm_1">[id number]</td><td ID="MedicationMedication_1">Aristada</td><td ID="MedicationRoute_1">intramuscularly</td><td ID="MedicationRouteConcept_1"></td><td ID="MedicationStartDate_1">07/31/2020</td><td ID="MedicationStopDate_1"></td><td ID="MedicationDosageFrequency_1">every four weeks</td><td ID="MedicationDuration_1"></td><td ID="MedicationFormulaStrength_1">662 mg/2.4 mL</td><td ID="MedicationDosageForm_1">suspension,extended rel syring</td><td ID="MedicationDosageFormCode_1"></td><td ID="MedicationDosageDescription_1">as directed</td><td ID="MedicationMedicationId_1">[id number]</td><td ID="MedicationAccount_1">[id number]</td><td ID="MedicationNpid_1">[id number]</td><td ID="MedicationAuthorFirstName_1">Naveen</td><td ID="MedicationAuthorLastName_1">Oscar</td><td ID="MedicationTaxonomyCode_1">[id number]</td><td ID="MedicationTaxonomyDesc_1"> Nurse Practitioner</td><td ID="MedicationPhoneNumber_1">[phone]</td> [facility] ([facility]) Nystatin 100 UNT/MG Topical Powder 100,000 unit/gram [place] N 07/31/2020 12:00:00 AM EDT powder 15 APPLY UNDER BREASTS FOLDS NEEDED FOR RASH APPLY UNDER BREASTS FOLDS NEEDED FOR RASH SOLD: 07/31/2020 [facility] 15 mg 07/31/2020 12:00:00 AM EDT tablet 30 TAKE ONE TABLET BY MOUTH EVERY DAY AT BEDTIME FOR SLEEP/MOOD TAKE ONE TABLET BY MOUTH EVERY DAY AT BE DTIME FOR SLEEP/MOOD SOLD: 07/31/2020 [facility] Aristada Aristada 07/31/2020 12:00:00 AM EDT 662 mg/2.4 completed <td ID="MedicationRxNorm_4">[id number]</td><td ID="MedicationMedication_4">Aristada</td><td ID="MedicationRoute_4">intramuscularly</td><td ID="MedicationRouteConcept_4"></td><td ID="MedicationStartDate_4">07/31/2020</td><td ID="MedicationStopDate_4"></td><td ID="MedicationDosageFrequency_4">every four weeks</td><td ID="MedicationDuration_4"></td><td ID="MedicationFormulaStrength_4">662 mg/2.4 mL</td><td ID="MedicationDosageForm_4">suspension,extended rel syring</td><td ID="MedicationDosageFormCode_4"></td><td ID="MedicationDosageDescription_4">as directed</td><td ID="MedicationMedicationId_4">[id number]</td><td ID="MedicationAccount_4">[id number]</td><td ID="MedicationNpid_4">[id number]</td><td ID="MedicationAuthorFirstName_4">Naveen</td><td ID="MedicationAuthorLastName_4">Oscar</td><td ID="MedicationTaxonomyCode_4">[id number]</td><td ID="MedicationTaxonomyDesc_4"> Nurse Practitioner</td><td ID="MedicationPhoneNumber_4">[phone]</td> [facility] ([facility] 100 mg 07/31/2020 12:00:00 AM EDT capsule 60 TAKE TWO CAPSULES BY MOUTH EVERY DAY FOR CONSTIPATION TAKE TWO CAPSULES BY MOUTH EVERY DAY FOR CONSTIPATION SOLD: 07/31/2020 [facility] 250 mg 07/31/2020 12:00:00 AM EDT tablet 30 TAKE ONE TABLET BY MOUTH EVERY DAY AT BEDTIME FOR SEIZURES TAKE ONE TABLET BY MOUTH EVERY DAY AT BE [facility] FOR SEIZURES SOLD: 07/31/2020 [facility] 10 mg 07/31/2020 12:00:00 AM EDT tablet 30 TAKE ONE TABLET BY MOUTH EVERY DAY FOR ALLERGY TAKE ONE TABLET BY MOUTH EVERY DAY FOR ALLERGY SOLD: 021 [facility] 325 mg (65 mg iron) 07/31/2020 12:00:00 AM EDT tablet 30 TAKE ONE TABLET BY MOUTH EVERY DAY TAKE ONE TABLET BY MOUTH EVERY DAY SOLD: 07/31/2020 [facility] aripiprazole 10 MG Oral Tablet aripiprazole 07/10/2020 12:00:00 AM ED T 10 mg by mouth completed <td ID="Medica tionRxNorm_4">813974</td><td ID="MedicationMedication_4">aripiprazole</td><td ID="MedicationRoute_4">by mouth</td><td ID="MedicationRouteConcept_4">I55353</td><td ID="MedicationStartDate_4">07/10/2020</td><td ID="MedicationStopDate_4"></td><td ID="MedicationDosageFrequency_4">as directed</td><td ID="MedicationDuration_4"></td><td ID="MedicationFormulaStrength_4">10 mg</td><td ID="MedicationDosageForm_4">tablet</td><td ID="MedicationDosageFormCode_4"></td><td ID="MedicationDosageDescription_4"></td><td ID="MedicationMedicationId_4">[id number]</td><td ID="MedicationAccount_4">[id number]</td><td ID="MedicationNpid_4">[id number]</td><td ID="MedicationAuthorFirstName_4">Sandra</td><td ID="MedicationAuthorLastName_4">Jimmie</td><td ID="MedicationTaxonomyCode_4">[id number]</td><td ID="MedicationTaxonomyDesc_4">Psychiatric/Mental Health</td><td ID="MedicationPhoneNumber_4">[phone]</td> [facility] ([facility]) Sertraline 100 MG Oral Tablet sertraline 02/24/2020 12:00:00 AM EST 100 mg completed <td ID="Medicat ionRxNorm_6">802537</td><td ID="MedicationMedication_6">sertraline</td><td ID="MedicationRoute_6"></td><td ID="MedicationRouteConcept_6"></td><td ID="MedicationStartDate_6">02/24/2020</td><td ID="MedicationStopDate_6">02/24/2020</td><td ID="MedicationDosageFrequency_6"></td><td ID="MedicationDuration_6"></td><td ID="MedicationFormulaStrength_6">100 mg</td><td ID="MedicationDosageForm_6">tablet</td><td ID="MedicationDosageFormCode_6"></td><td ID="MedicationDosageDescription_6"></td><td ID="MedicationMedicationId_6">[id number]</td><td ID="MedicationAccount_6">[id number]</td><td ID="MedicationNpid_6"></td><td ID="MedicationAuthorFirstName_6"></td><td ID="MedicationAuthorLastName_6"></td><td ID="MedicationTaxonomyCode_6"></td><td ID="MedicationTaxonomyDesc_6"></td><td ID="MedicationPhoneNumber_6"></td> [facility] ([facility]) Lorazepam 0.5 MG Oral Tablet lorazepam 02/24/2020 12:00:00 AM EST 0.5 mg by mouth completed <td ID="Medica tionRxNorm_4">734801</td><td ID="MedicationMedication_4">lorazepam</td><td ID="MedicationRoute_4">by mouth</td><td ID="MedicationRouteConcept_4">Y75185</td><td ID="MedicationStartDate_4">02/24/2020</td><td ID="MedicationStopDate_4"></td><td ID="MedicationDosageFrequency_4"></td><td ID="MedicationDuration_4"></td><td ID="MedicationFormulaStrength_4">0.5 mg</td><td ID="MedicationDosageForm_4">tablet</td><td ID="MedicationDosageFormCode_4"></td><td ID="MedicationDosageDescription_4">as directed</td><td ID="MedicationMedicationId_4">[id number]</td><td ID="MedicationAccount_4">[id number]</td><td ID="MedicationNpid_4">[id number]</td><td ID="MedicationAuthorFirstName_4">Sandra</td><td ID="MedicationAuthorLastName_4">Jimmie</td><td ID="MedicationTaxonomyCode_4">[id number]</td><td ID="MedicationTaxonomyDesc_4">Psychiatric/Mental Health</td><td ID="MedicationPhoneNumber_4">[phone]</td> [facility] ([facility]) Mirtazapine 15 MG Oral Tablet mirtazapine 02/24/2020 12:00:00 AM EST 15 mg completed <td ID="Medicat ionRxNorm_5">[id number]</td><td ID="MedicationMedication_5">mirtazapine</td><td ID="MedicationRoute_5"></td><td ID="MedicationRouteConcept_5"></td><td ID="MedicationStartDate_5">02/24/2020</td><td ID="MedicationStopDate_5">02/24/2020</td><td ID="MedicationDosageFrequency_5"></td><td ID="MedicationDuration_5"></td><td ID="MedicationFormulaStrength_5">15 mg</td><td ID="MedicationDosageForm_5">tablet</td><td ID="MedicationDosageFormCode_5"></td><td ID="MedicationDosageDescription_5"></td><td ID="MedicationMedicationId_5">[id number]</td><td ID="MedicationAccount_5">[id number]</td><td ID="MedicationNpid_5"></td><td ID="MedicationAuthorFirstName_5"></td><td ID="MedicationAuthorLastName_5"></td><td ID="MedicationTaxonomyCode_5"></td><td ID="MedicationTaxonomyDesc_5"></td><td ID="MedicationPhoneNumber_5"></td> [facility] ([facility]) Sertraline 50 MG Oral Tablet sertraline 50 mg tablet Take 1 tablet every day by oral route. sertraline 50 mg tablet Take 1 tablet every day by oral route. 1 completed sertraline 50 MG Oral Tablet [facility] ([facility]) Sertraline 25 MG Oral Tablet sertraline 25 mg tablet Take 1 tablet every day by oral route in the morning. sertraline 25 mg tablet Take 1 tablet ev day by oral route in the morning. 1 completed sertraline 25 MG Oral Tablet [facility] ([facility]) Vitamin D3 25 Mcg CAP PO QAM completed Vitamin D3 [facility] ([facility]) Levetiracetam 250 MG Oral Tablet levetiracetam 250 mg tablet levetiracetam 250 mg tablet completed levetiraceta m 250 MG Oral Tablet [facility] ([facility]) Omeprazole 20 MG Delayed Release Oral Ca psule omeprazole 20 mg capsule,delayed release omeprazole 20 mg capsule,delayed release completed omeprazole 20 MG Delayed Release Oral Capsule [facility] ([facility]) Lorazepam 1 MG Oral Tablet lorazepam 1 mg tablet lorazepam 1 mg tablet completed lorazepam 1 MG Oral Table t [place] ([facility]) Hydroxyzine Pamoate 25 MG Oral Capsule hydroxyzine donnell oate 25 mg capsule hydroxyzine pamoate 25 mg capsule comp leted hydroxyzine pamoate 25 MG Oral Capsule [place] ([facility]) ferrous sulfate 325 MG Delayed Release O ral Tablet ferrous sulfate 325 mg (65 mg iron) tablet,delayed release ferrous sulfate 325 mg (65 mg iron) tabl et,delayed release completed ferrou s sulfate 325 MG Delayed Release Oral Tablet [place] ([facility]) Mirtazapine 30 MG Oral Tablet mirtazapine 30 mg tablet saurabh zapine 30 mg tablet completed mirtazapine 30 MG Oral Tablet [place] ([facility]) Mirtazapine 7.5 MG Oral Tablet mirtazapine 7.5 mg tabl et mirtazapine 7.5 mg tablet completed mirtazapine 7.5 MG Oral Tablet [place] ([facility]) Escitalopram 20 MG Oral Tablet escitalopram 20 mg tabl et escitalopram 20 mg tablet completed escitalopram 20 MG Oral Tablet [facility] ([facility]) Sertraline 100 MG Oral Tablet sertraline 100 mg tablet sertr maliha 100 mg tablet completed sertraline 100 MG Oral Tablet [place] ([facility]) Levetiracetam 250 MG Oral Tablet levetiracetam 250 mg tablet levetiracetam 250 mg tablet completed levetiraceta m 250 MG Oral Tablet [facility] ([facility]) vitamin d3 1000 unit caps compl eted vitamin d3 1000 unit caps [facility] ([facility]) Cholecalciferol 2000 UNT Oral Capsule ch olecalciferol (vitamin D3) 50 mcg (2,000 unit) capsule TAKE ONE CAPSULE BY MOUTH @8AM cholecalciferol (vitamin D3) 50 mcg (2,000 unit) capsule TAKE ONE CAPSULE BY MOUTH @8AM completed cholecalciferol 0.05 MG Oral Capsule [place] ([facility]) Amantadine Hydrochloride 100 MG Oral Capsule amantadin e HCl 100 mg capsule amantadine HCl 100 mg capsule complete d amantadine hydrochloride 100 MG Oral Capsule [place] ([facility]) Aristada Initio 675 mg/2.4 mL suspension, extend.rel. IM syringe [id number] completed 2.4 ML aripipra zole lauroxil 281.3 MG/ML Prefilled Syringe [Aristada] [place] ([facility]) buspirone hydrochloride 7.5 MG Oral Tablet buspirone 7 .5 mg tablet buspirone 7.5 mg tablet completed buspirone h ydrochloride 7.5 MG Oral Tablet [place] ([facility]) Mirtazapine 15 MG Oral Tablet mirtazapin e 15 mg tablet Take 1 tablet every day by oral route. mirtazapine 15 mg tablet Take 1 tablet every day by or al route. 1 completed mirtazapine 15 MG Oral Tablet [place] ([facility]) Sulfamethoxazole 800 MG / Trimethoprim 1 60 MG Oral Tablet sulfamethoxazole 800 mg-trimethoprim 160 mg tablet sulfamethoxazole 800 mg-trimethoprim 160 mg tablet completed sulfame thoxazole 800 MG / trimethoprim 160 MG Oral Tablet [place] ([facility]) Hydroxyzine Hydrochloride 50 MG Oral Tab let hydroxyzine HCl 50 mg tablet Take 1 tablet 3 times a day by oral route. hydroxyzine HCl 50 mg tablet Take 1 tabl et 3 times a day by oral route. 1 completed hydroxyzine hydrochloride 50 MG Oral Tablet [place] ([facility]) ferrous sulfate 325 MG TAB PO TID comple cindi ferrous sulfate [facility]) aripiprazole 10 MG Oral Tablet aripiprazole 10 mg tabl et aripiprazole 10 mg tablet completed aripiprazole 10 MG Oral Tablet [facility]) Aristada 441 mg/1.6 mL suspension, extend.rel. IM syringe [id number] completed 1.6 ML aripiprazole lauroxil 276 MG/ML Prefilled Syringe [Aristada] [place] ([facility]) Hydroxyzine Hydrochloride 50 MG Oral Tab let hydroxyzine HCl 50 mg tablet Take 1 tablet 3 times a day by oral route. hydroxyzine HCl 50 mg tablet Take 1 tabl et 3 times a day by oral route. 1 completed hydroxyzine hydrochloride 50 MG Oral Tablet [facility] ([facility]) vitamin d3 50 mcg (1999) caps completed vitamin d3 50 mcg (1999) caps [place] ([facility]) Amantadine Hydrochloride 100 MG Oral Capsule amantadin e HCl 100 mg capsule amantadine HCl 100 mg capsule complete d amantadine hydrochloride 100 MG Oral Capsule [place] ([facility]) buspirone hydrochloride 7.5 MG Oral Tablet buspirone 7 .5 mg tablet buspirone 7.5 mg tablet completed buspirone h ydrochloride 7.5 MG Oral Tablet [place] ([facility]) Sulfamethoxazole 800 MG / Trimethoprim 1 60 MG Oral Tablet sulfamethoxazole 800 mg-trimethoprim 160 mg tablet sulfamethoxazole 800 mg-trimethoprim 160 mg tablet completed sulfame thoxazole 800 MG / trimethoprim 160 MG Oral Tablet [place] ([facility]) Cefuroxime 500 MG Oral Tablet cefuroxime axetil 500 mg tablet cefuroxime axetil 500 mg tablet completed cefuroxi me 500 MG Oral Tablet [place] ([facility]) Aristada 441 mg/1.6 mL suspension, extend.rel. IM syringe [id number] completed 1.6 ML aripiprazole lauroxil 276 MG/ML Prefilled Syringe [Aristada] [place] ([facility]) vitamin d3 50 mcg (1999 ut) caps completed vitamin d3 50 mcg (1999 ut) caps [place] ([facility]) aripiprazole 10 MG Oral Tablet aripiprazole 10 mg tabl et aripiprazole 10 mg tablet completed aripiprazole 10 MG Oral Tablet [place] ([facility]) Aristada Initio 675 mg/2.4 mL suspension, extend.rel. IM syringe [id number] completed 2.4 ML aripipra zole lauroxil 281.3 MG/ML Prefilled Syringe [Aristada] [place] ([facility]) Vitamin D3 25 Mcg CAP PO QAM completed Vitamin D3 [facility] ([facility]) Lorazepam 1 MG Oral Tablet lorazepam 1 mg tablet lorazepam 1 mg tablet completed lorazepam 1 MG Oral Table t [facility] ([facility]) ferrous sulfate 325 MG TAB PO TID comple cindi ferrous sulfate [facility] ([facility]) Hydroxyzine Pamoate 25 MG Oral Capsule hydroxyzine donnell oate 25 mg capsule hydroxyzine pamoate 25 mg capsule comp leted hydroxyzine pamoate 25 MG Oral Capsule [facility] ([facility]) Sertraline 50 MG Oral Tablet sertraline 50 mg tablet Take 1 tablet every day by oral route. sertraline 50 mg tablet Take 1 tablet every day by oral route. 1 completed sertraline 50 MG Oral Tablet [place] ([facility]) Hydroxyzine Hydrochloride 25 MG Oral Tablet hydroxyzin e HCl 25 mg tablet hydroxyzine HCl 25 mg tablet completed hydroxyzine hydrochloride 25 MG Oral Tablet [facility] ([facility]) Cefuroxime 500 MG Oral Tablet cefuroxime axetil 500 mg tablet cefuroxime axetil 500 mg tablet completed cefuroxi me 500 MG Oral Tablet [facility] ([facility]) vitamin d3 1000 unit caps compl eted vitamin d3 1000 unit caps [facility] ([facility]) Sertraline 100 MG Oral Tablet sertraline 100 mg tablet sertr maliha 100 mg tablet completed sertraline 100 MG Oral Tablet [place] ([facility]) Mirtazapine 30 MG Oral Tablet mirtazapine 30 mg tablet saurabh zapine 30 mg tablet completed mirtazapine 30 MG Oral Tablet [place] ([facility]) Escitalopram 20 MG Oral Tablet escitalopram 20 mg tabl et escitalopram 20 mg tablet completed escitalopram 20 MG Oral Tablet [facility] ([facility]) Hydroxyzine Hydrochloride 25 MG Oral Tablet hydroxyzin e HCl 25 mg tablet hydroxyzine HCl 25 mg tablet completed hydroxyzine hydrochloride 25 MG Oral Tablet [facility] ([facility]) Sertraline 25 MG Oral Tablet sertraline 25 mg tablet Take 1 tablet every day by oral route in the morning. sertraline 25 mg tablet Take 1 tablet ev gretta day by oral route in the morning. 1 completed sertraline 25 MG Oral Tablet [facility] ([facility]) Insurance Providers Payer name Policy type / Coverage type Policy ID Covered democrat ID Covered democrat's relationship to johnson Policy Johnson Plan Information MEDICAID [id number] SP [id number] UNHC COMMUNITY PLAN MCDHMO [id number] SP [id number] BLUE CROSS GRAVES PLAN [id number] SP [id number] BS Klarissa Hmo Blue Option Medigap Part B [id number] [id number] Self [id number] BS [place]lar[place] Hmo Blue Option Medigap Part B [id number] ..[id number] Self [id number] BS [place] Hmo Blue Option Medigap Part B [id number] [id number] Self [id number] BS [place] Hmo Blue Option Medigap Part B [id number] ..[id number] Self [id number] BS [place] Hmo Blue Option Medigap Part B [id number] Self BS [place] Hmo Blue Option Medigap Part B [id number] [id number] Self [id number] BS [place] Hmo Blue Option Medigap Part B [id number] ..[id number] Self [id number] BS [place] Hmo Blue Option Medigap Part B [id number] ..[id number] Self [id number] BS [place] Hmo Blue Option Medigap Part B [id number] 2..[id number] Self [id number] BS [place] Hmo Blue Option Medigap Part B [id number] [id number] Self [id number] BS [place] Hmo Blue Option Medigap Part B [id number] 2..[id number] Self [id number] BS [place] Hmo Blue Option Medigap Part B [id number] 2..[id number] Self [id number] BS [place] Hmo Blue Option Medigap Part B [id number] [id number] Self [id number] UNHC COMMUNITY PLAN MCDHMO [id number] SP [id number] [facility] Community Plan Medigap Part B [id number] Self [id number] [facility] Community Plan Medigap Part B [id number] Self [id number] [facility] Community Plan Medigap Part B [id number] Self [id number] [facility] Community Plan Commercial [id number] Self [facility] Community Plan Medigap Part B [id number] Self [id number] [facility] Community Plan Medigap Part B [id number] Self [id number] [facility] Community Plan Medigap Part B [id number] Self [id number] [facility] Community Plan Medigap Part B [id number] Self [id number] [facility] Community Plan Medigap Part B [id number] Self [id number] [facility] Community Plan Medigap Part B [id number] Self [id number] [facility] Community Plan Medigap Part B [id number] Self [id number] [facility] Community Plan Medigap Part B [id number] Self [id number] [facility] Community Plan Medigap Part B [id number] Self [id number] [employer]HC COMMUNITY PLAN [id number] 18 [id number] Unhc Community Plan Medicaid [id number] Self [id number] [facility] Community Plan Medicaid 1941 Self UNHC COMMUNITY PLAN MCDHMO [id number] SP [id number] UNHC COMMUNITY PLAN MCDHMO [id number] SP [id number] Managed Care - Community Plan [facility] P [id number] S [id number] [facility] Community Plan Commercial [id number] Self [id number] Medicaid S [id number] S [id number] Managed Care - Community Plan [facility] P [id number] S [id number] Medicaid S [id number] S [id number] [place] [id number] Self [id number] Managed Care - [place] Community Plan P [id number] S [id number] Managed Care - Community Plan [facility] P [id number] S [id number] [place] I [id number] Self [id number] Medicaid S [id number] S [id number] Managed Care - [place] Community Plan P [id number] S [id number] Medicaid S [id number] [facility] [id number] SP [id number] [facility] COMMUNITY PLAN [facility] [id number] SP [id number] [facility](MCAID) O [id number] S [id number] MEDICAID M [id number] S [id number] [facility] COMMUNITY PLAN [facility] [id number] SP [id number] Managed Care - Community Plan [facility] P [id number] S [id number] Medicaid S [id number] S [id number] [facility] COMMUNITY PLAN [facility] [id number] SP [id number] SELF PAY ONLY [id number] SP [id number] UN COMMUNITY PLAN [facility] [id number] SP [id number] SELF PAY ONLY [id number] SP [id number] [facility] O [id number] S [id number] [facility] Health Maintenance Organization (HMO) [id number] Self [id number] [facility] Comm Plan - Medicaid Medicaid [id number] Self [place] [employer] [id number] SP [id number] UN AMERICHOICE XIX -O [id number] 18 [id number] [facility] Community Plan-Caid Medicaid [id number] Self BLUE CROSS BLUE SHIELD-CLINIC [id number] 18 [id number] BLUE CROSS BLUE SHIELD-CLINIC [id number] 18 [id number] BLUE CROSS BLUE SHIELD-O/P [id number] 18 [id number] MEDICAID-O/P [id number] MEDICAID - CLINIC [id number] UN COMMUNITY PLAN [facility] [id number] SP [id number] Problems, Conditions, and Diagnoses Code Display Name Description Problem Type Effective Dates Data Source(s) schizoaffective, SI, paranoid schizoaffective, SI, par anoid Diagnosis 07/10/2020 07:50:00 PM [facility] F41.9 Anxiety disorder, unspecified Unspecified Anxiety Diso rder Condition 01/24/2021 12:00:00 AM EDT [facility] ([facility]) F25.1 Schizoaffective disorder, depressive typ e Schizoaffective Disorder, Depressive type Condition 01/24/2021 12:00:00 AM EDT [facility] ([facility]) E66.8 Obesity Obesity Problem 09/04/2020 12:00:00 AM ED T [facility] ([facility]) [id number] Vitamin D deficiency Vitamin D Deficiency Problem 04/19/2020 12:00:00 AM EST [place] ([facility]) F32.9 Major depressive disorder, single episod e, unspecified Unspecified depressive Disorder Condition 02/22/2020 12:00:00 AM EST [facility] ([facility]) [id number] Nicotine dependence Nicotine Dependence Problem 1 12:00:00 AM EDT [facility] ([facility]) [id number] Nicotine dependence Nicotine Dependence Problem 1 12:00:00 AM EDT [facility] ([facility]) [id number] Impacted cerumen in right ear Impacted Cerumen in Right Ear Problem 09/29/2019 12:00:00 AM EDT - 02/02/2020 12:00:00 AM ED T [facility] ([facility]) [id number] Patient asked to attend Patient Asked to Attend Proble m 09/29/2019 12:00:00 AM EDT - 02/02/2020 12:00:00 AM EDT [facility] ([facility]) [id number] Tobacco use and exposure - finding Tobacco Use a nd Exposure - Finding Problem 09/29/2019 12:00:00 AM EDT - 02/02/2020 12:00:00 AM ED T [facility] ([facility]) [id number] Nicotine dependence Nicotine Dependence Problem 0 09/29/2019 12:00:00 AM EDT - 02/02/2020 12:00:00 AM EDT [facility] ([facility]) [id number] Impacted cerumen in right ear Impacted Cerumen in Right Ear Problem 09/29/2019 12:00:00 AM EDT - 02/02/2020 12:00:00 AM ED T [facility] ([facility]) [id number] Patient asked to attend Patient Asked to Attend Proble m 09/29/2019 12:00:00 AM EDT - 02/02/2020 12:00:00 AM EDT [facility] ([facility]) [id number] Tobacco use and exposure - finding Tobacco Use a nd Exposure - Finding Problem 09/29/2019 12:00:00 AM EDT - 02/02/2020 12:00:00 AM ED Mary [facility] ([facility]) [id number] Nicotine dependence Nicotine Dependence Problem 0 09/29/2019 12:00:00 AM EDT - 02/02/2020 12:00:00 AM EDT [facility] ([facility]) [id number] Clinical finding Clinical Finding Problem 020 12:00:00 AM EDT - 03/29/2020 12:00:00 AM EST [facility] ([facility]) [id number] Anesthesia of skin Anesthesia of Skin Problem 12:00:00 AM EDT - 02/02/2020 12:00:00 AM EDT [facility] ([facility]) [id number] Anesthesia of skin Anesthesia of Skin Problem 12:00:00 AM EDT - 02/02/2020 12:00:00 AM EDT [facility] ([facility]) [id number] Clinical finding Clinical Finding Problem 019 12:00:00 AM EST - 02/02/2020 12:00:00 AM EDT [facility] ([facility]) [id number] Clinical finding Clinical Finding Problem 019 12:00:00 AM EST - 02/02/2020 12:00:00 AM EDT [facility] ([facility]) [id number] Breast neoplasm screening status Breast Neoplasm Screening Status Problem 11/11/2018 12:00:00 AM EDT - 04/19/2020 12:00:00 AM ES Mary HAR[facility] ([facility]) [id number] Electrocardiogram abnormal Electrocardiogram Abnormal Problem 11/11/2018 12:00:00 AM EDT - 04/19/2020 12:00:00 AM SEAN HAR[facility] ([facility]) [id number] Dizziness and giddiness Dizziness and Giddiness Proble 11/11/2018 12:00:00 AM EDT - 02/02/2020 12:00:00 AM EDT [facility] ([facility]) [id number] Dizziness and giddiness Dizziness and Giddiness Proble 11/11/2018 12:00:00 AM EDT - 02/02/2020 12:00:00 AM EDT [facility] ([facility]) [id number] Dysuria Dysuria Problem 04/02/2018 12:0 0:00 AM EST - 02/02/2020 12:00:00 AM EDT [facility] ([facility]) [id number] Urinary tract infectious disease Urinary Tract I nfectious Disease Problem 04/02/2018 12:00:00 AM EST - 02/02/2020 12:00:00 AM ED T [facility] ([facility]) [id number] Dysuria Dysuria Problem 04/02/2018 12:0 0:00 AM EST - 02/02/2020 12:00:00 AM EDT [facility] ([facility]) [id number] Urinary tract infectious disease Urinary Tract I nfectious Disease Problem 04/02/2018 12:00:00 AM EST - 02/02/2020 12:00:00 AM ED T [facility] ([facility]) [id number] Influenza vaccine needed Influenza Vaccine Needed Pro blem 03/13/2018 12:00:00 AM EST - 02/02/2020 12:00:00 AM EDT [facility] ([facility]) [id number] Influenza vaccine needed Influenza Vaccine Needed Pro blem 03/13/2018 12:00:00 AM EST - 02/02/2020 12:00:00 AM EDT [facility] ([facility]) [id number] Screening for malignant neoplasm of cerv ix Screening for Malignant Neoplasm of Cervix Problem 09/29/2017 12:00:00 AM EDT - 02/02/2020 12:00:00 AM EDT [facility] ([facility]) [id number] Screening for malignant neoplasm of cerv ix Screening for Malignant Neoplasm of Cervix Problem 09/29/2017 12:00:00 AM EDT - 02/02/2020 12:00:00 AM EDT [facility] ([facility]) [id number] Enterovirus enteritis Enterovirus Enteritis Problem 09/09/2017 12:00:00 AM EDT - 02/02/2020 12:00:00 AM EDT [facility] ([facility]) [id number] Enterovirus enteritis Enterovirus Enteritis Problem 09/09/2017 12:00:00 AM EDT - 02/02/2020 12:00:00 AM EDT [facility] ([facility]) [id number] Influenza vaccination status Influenza Vaccination Sta tus Problem 03/11/2017 12:00:00 AM EST - 02/02/2020 12:00:00 AM EDT [facility] ([facility]) [id number] Foot pain Foot Pain Problem 03/11/2017 12:0 0:00 AM EST - 02/02/2020 12:00:00 AM EDT [facility] ([facility]) [id number] Influenza vaccination status Influenza Vaccination Sta tus Problem 03/11/2017 12:00:00 AM EST - 02/02/2020 12:00:00 AM EDT [facility] ([facility]) [id number] Foot pain Foot Pain Problem 03/11/2017 12:0 0:00 AM EST - 02/02/2020 12:00:00 AM EDT [facility] ([facility]) [id number] Procedure by method Procedure by Method Problem 0 01/03/2017 12:00:00 AM EDT - 02/02/2020 12:00:00 AM EDT [facility] ([facility]) [id number] Fitting procedure Fitting Procedure Problem 01/03 12:00:00 AM EDT - 02/02/2020 12:00:00 AM EDT [facility] ([facility]) [id number] Procedure by method Procedure by Method Problem 0 01/03/2017 12:00:00 AM EDT - 02/02/2020 12:00:00 AM EDT [facility] ([facility]) [id number] Fitting procedure Fitting Procedure Problem 01/03 12:00:00 AM EDT - 02/02/2020 12:00:00 AM EDT [facility] ([facility]) Surgeries/Procedures Procedure Description Date Indications Data Source(s) THERAPEUTIC PROPHYLACTIC/DX INJECTION SUBQ/IM 01/24/2021 12:00:00 AM EDT - 01/24/2021 12:00:00 AM EDT [facility] ([facility]) THERAPEUTIC PROPHYLACTIC/DX INJECTION SUBQ/IM 01/25/20 12:00:00 AM EDT [facility] ([facility]) Brief Individual Psychotherapy - 30 min 01/10/2021 12:00:00 AM EDT - 01/10/2021 12:00:00 AM EDT [facility] ([facility]) Brief Individual Psychotherapy - 30 min 01/10/2021 12: 00:00 AM EDT [facility] ([facility]) Comprehensive medication services, per 15 minutes 12/25/2020 12:00:00 AM EDT - 12/25/2020 12:00:00 AM EDT [facility] ([facility]) Comprehensive medication services, per 15 minutes 12/25/2020 12:00:00 AM EDT [facility] ([facility]) Comprehensive medication services, per 15 minutes 11/27/2020 12:00:00 AM EDT - 11/27/2020 12:00:00 AM EDT [facility] ([facility]) Comprehensive medication services, per 15 minutes 11/27/2020 12:00:00 AM EDT [facility] ([facility]) Brief Individual Psychotherapy - 30 min 11/21/2020 12:00:00 AM EDT - 11/21/2020 12:00:00 AM EDT [facility] ([facility]) Brief Individual Psychotherapy - 30 min 11/21/2020 12: 00:00 AM EDT [facility] ([facility]) Brief Individual Psychotherapy - 30 min 10/26/2020 12:00:00 AM EDT - 10/26/2020 12:00:00 AM EDT [facility] ([facility]) Brief Individual Psychotherapy - 30 min 10/26/2020 12: 00:00 AM EDT [facility] ([facility]) Comprehensive medication services, per 15 minutes 10/26/2020 12:00:00 AM EDT - 10/26/2020 12:00:00 AM EDT [facility] ([facility]) Comprehensive medication services, per 15 minutes 10/26/2020 12:00:00 AM EDT [facility] ([facility]) Comprehensive medication services, per 15 minutes 09/29/2020 12:00:00 AM EDT - 09/29/2020 12:00:00 AM EDT [facility] ([facility]) Comprehensive medication services, per 15 minutes 09/29/2020 12:00:00 AM EDT [facility] ([facility] [address] [facility]) ECG ROUTINE ECG W/LEAST 12 LDS W/I&R 09/04/2020 12:00: 00 AM EDT [facility] ([facility]) Comprehensive medication services, per 15 minutes 09/01/2020 12:00:00 AM EDT - 09/01/2020 12:00:00 AM EDT [facility] ([facility]) Comprehensive medication services, per 15 minutes 09/01/2020 12:00:00 AM EDT [facility] ([facility] [address] [facility]) Comprehensive medication services, per 15 minutes 08/03/2020 12:00:00 AM EDT - 08/03/2020 12:00:00 AM EDT [facility] ([facility]) Comprehensive medication services, per 15 minutes 08/03/2020 12:00:00 AM EDT [facility] ([facility] [address] [facility]) Extended Individual Psychotherapy - 45 min 08/03/2020 12:00:00 AM EDT - 08/03/2020 12:00:00 AM EDT [facility] ([facility]) Extended Individual Psychotherapy - 45 min 12:00:00 AM EDT [facility] ([facility]) Brief Individual Psychotherapy - 30 min 07/10/2020 12:00:00 AM EDT - 07/10/2020 12:00:00 AM EDT [facility] ([facility]) Brief Individual Psychotherapy - 30 min 07/10/2020 12: 00:00 AM EDT [facility] ([facility]) THERAPEUTIC PROPHYLACTIC/DX INJECTION SUBQ/IM 07/10/2020 12:00:00 AM EDT - 07/10/2020 12:00:00 AM EDT [facility] ([facility]) THERAPEUTIC PROPHYLACTIC/DX INJECTION SUBQ/IM 07/11/19 12:00:00 AM EDT [facility] ([facility]) THERAPEUTIC PROPHYLACTIC/DX INJECTION SUBQ/IM 06/29/2020 12:00:00 AM EDT - 06/29/2020 12:00:00 AM EDT [facility] ([facility]) THERAPEUTIC PROPHYLACTIC/DX INJECTION SUBQ/IM 06/29/19 12:00:00 AM EDT [facility] ([facility]) MHC Telemed E/M Lvl 3--Est pt 05/31/2020 12:00:00 AM EST - 05/31/2020 12:00:00 AM EST [facility] ([facility]) MHC Telemed E/M Lvl 3--Est pt 05/31/2020 12:00:[address] [facility] ([facility]) THERAPEUTIC PROPHYLACTIC/DX INJECTION SUBQ/IM 05/31/2020 12:00:00 AM EST - 05/31/2020 12:00:00 AM EST [facility] ([facility]) THERAPEUTIC PROPHYLACTIC/DX INJECTION SUBQ/IM 05/31/19 12:00:00 AM EST [facility] ([facility]) MHC Telemed E/M Lvl 3--Est pt 05/25/2020 12:00:00 AM EST - 05/25/2020 12:00:00 AM EST [facility] ([facility]) MHC Telemed E/M Lvl 3--Est pt 05/25/2020 12:00:[address] [facility] ([facility]) Extended Individual Psychotherapy - 45 min 05/19/2020 12:00:00 AM EST - 05/19/2020 12:00:00 AM EST [facility] ([facility]) Extended Individual Psychotherapy - 45 min 12:00:00 AM EST [facility] ([facility]) Extended Individual Psychotherapy - 45 min 05/09/2020 12:00:00 AM EST - 05/09/2020 12:00:00 AM EST [facility] ([facility]) Extended Individual Psychotherapy - 45 min 12:00:00 AM EST [facility] ([facility]) Comprehensive medication services, per 15 minutes 05/04/2020 12:00:00 AM EST - 05/04/2020 12:00:00 AM EST [facility] ([facility]) Comprehensive medication services, per 15 minutes 05/04/2020 12:00:00 AM EST [facility] ([facility]) MHC Telemed E/M Lvl 3--Est pt 05/04/2020 12:00:00 AM EST - 05/04/2020 12:00:00 AM EST [facility] ([facility]) MHC Telemed E/M Lvl 3--Est pt 05/04/2020 12:00:[address] [facility] ([facility]) THERAPEUTIC PROPHYLACTIC/DX INJECTION SUBQ/IM 05/01/2020 12:00:00 AM EST - 05/01/2020 12:00:00 AM EST [facility] ([facility]) THERAPEUTIC PROPHYLACTIC/DX INJECTION SUBQ/IM 05/01/19 12:00:00 AM EST [facility] ([facility]) Extended Individual Psychotherapy - 45 min 04/24/2020 12:00:00 AM EST - 04/24/2020 12:00:00 AM EST [facility] ([facility]) Extended Individual Psychotherapy - 45 min 12:00:00 AM EST [facility] ([facility]) MHC Telemed E/M Lvl 3--Est pt 04/20/2020 12:00:00 AM EST - 04/20/2020 12:00:00 AM EST [facility] ([facility]) MHC Telemed E/M Lvl 3--Est pt 04/20/2020 12:00:[address] [facility] ([facility]) Telemed A/O 30" 04/20/2020 12:00:00 AM EST [facility] ([facility]) OFFICE OUTPATIENT VISIT 15 MINUTES 04/20/2020 12:00:00 AM EST [facility] ([facility]) THERAPEUTIC PROPHYLACTIC/DX INJECTION SUBQ/IM 04/03/2020 12:00:00 AM EST - 04/03/2020 12:00:00 AM EST [facility] ([facility]) THERAPEUTIC PROPHYLACTIC/DX INJECTION SUBQ/IM 04/03/20 20 12:00:00 AM EST [facility] ([facility]) THERAPEUTIC PROPHYLACTIC/DX INJECTION SUBQ/IM 03/31/2020 12:00:00 AM EST - 03/31/2020 12:00:00 AM EST [facility] ([facility]) THERAPEUTIC PROPHYLACTIC/DX INJECTION SUBQ/IM 03/31/20 20 12:00:00 AM EST [facility] ([facility]) OFFICE OUTPATIENT VISIT 15 MINUTES 03/29 12:00:00 AM EST - 03/29/2020 12:00:00 AM EST [facility] ([facility]) OFFICE OUTPATIENT VISIT 15 MINUTES 03/29/2020 12:00:00 AM EST [facility] ([facility]) Extended Individual Psychotherapy - 45 min 03/21/2020 12:00:00 AM EST - 03/21/2020 12:00:00 AM EST [facility] ([facility]) Extended Individual Psychotherapy - 45 min 0 12:00:00 AM EST [facility] ([facility]) OFFICE OUTPATIENT VISIT 15 MINUTES 02/23 12:00:00 AM EST - 02/24/2020 12:00:00 AM EST [facility] ([facility]) Psychotherapy ADD ON - 30 Minutes 02/24/2020 12:00:00 AM EST [facility] ([facility]) OFFICE OUTPATIENT VISIT 15 MINUTES 02/24/2020 12:00:00 AM EST [facility] ([facility]) TEMPMHCTelemed 30" Psychotherapy 12:00:00 AM EST - 02/22/2020 12:00:00 AM EST [facility] ([facility]) TEMPMHCTelemed 30" Psychotherapy 02/22/2020 12:00:00 A M EST [facility] ([facility]) TEMPMHCTelemed 30" Psychotherapy 12:00:00 AM EDT - 01/27/2020 12:00:00 AM EDT [facility] ([facility]) TEMPMHCTelemed 30" Psychotherapy 01/27/2020 12:00:00 A M EDT [facility] ([facility]) MHC Telemed E/M Lvl 3--Est pt 01/24/2020 12:00:00 AM EDT - 01/24/2020 12:00:00 AM EDT [facility] ([facility]) MHC Telemed E/M Lvl 3--Est pt 01/24/2020 12:00:00 AM E DT [facility] ([facility]) OFFICE OUTPATIENT NEW 30 MINUTES 12:00:00 AM EDT - 01/03/2020 12:00:00 AM EDT [facility] ([facility]) OFFICE OUTPATIENT NEW 30 MINUTES 01/03/2020 12:00:00 A M EDT [facility] ([facility]) Comprehensive medication services, per 15 minutes 01/03/2020 12:00:00 AM EDT - 01/03/2020 12:00:00 AM EDT [facility] ([facility]) Comprehensive medication services, per 15 minutes 01/03/2020 12:00:00 AM EDT [facility] ([facility]) Comprehensive medication services, per 15 minutes 12/31/2019 12:00:00 AM EDT - 12/31/2019 12:00:00 AM EDT [facility] ([facility]) Comprehensive medication services, per 15 minutes 12/31/2019 12:00:00 AM EDT [facility] ([facility]) Comprehensive medication services, per 15 minutes 12/30/2019 12:00:00 AM EDT - 12/30/2019 12:00:00 AM EDT [facility] ([facility]) Comprehensive medication services, per 15 minutes 12/30/2019 12:00:00 AM EDT [facility] ([facility]) MHC Telemed E/M Lvl 3--Est pt 12/22/2019 12:00:00 AM EDT - 12/22/2019 12:00:00 AM EDT [facility] ([facility]) MHC Telemed E/M Lvl 3--Est pt 12/22/2019 12:00:00 AM E DT [facility] ([facility]) Results ID Date Data Source [id number] 09/08/2020 09:36:00 AM EDT [facility] ([facility]) Name Value Range Interpretation Code Description Data Mitra rce(s) Supporting Document(s) Magnesium [Mass/volume] in Serum or Plasma 2.4 mg/dL 1.8-2.4 [facility] ([facility]) ID Date Data Source [id number] 09/08/2020 09:36:00 AM EDT [facility] Name Value Range Interpretation Code Description Data Mitra rce(s) Supporting Document(s) Blood Urea Nitrogen 11 mg/dL 7-18 [facility] ([facility]) Glucose, Fasting 86 mg/dL 70-100 [facility] ([facility]) Creatinine For GFR 0.85 mg/dL 0.55-1.30 [facility] ([facility]) Glomerular Filtration Rate Laboratory test result [facility] ([facility]) <content>Units are mL/min/1.73 m2</content>
<content></content>
<content>Chronic Kidney Disease Staging per NKF:</content>
<content></content>
<content>Stage I & II GFR >=60 Normal to Mildly Decreased</content>
<content>Stage III GFR 30- 59 Moderately Decreased</content>
<content>Stage IV GFR 15-29 Severely Decreased</content>
<content>Stage V GFR <15 Very Little GFR Left</content>
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
<content></content> Potassium Serum 4.6 meq/L 3.5-5.1 [facility] ([facility]) Sodium Level 139 meq/L 136-145 [facility] ([facility]) Carbon Dioxide Level 30 meq/L 21-32 [facility] ([facility]) Chloride Level 106 meq/L 98-107 [facility] ([facility]) Calcium Level 9.1 mg/dL 8.8-10.2 [facility] ([facility]) Anion Gap 3 meq/L 8-16 [facility] ([facility]) Ast/Sgot 13 U/L 7-37 [facility] ([facility]) Alkaline Phosphatase 142 U/L 45-117 [facility] ([facility]) Alt/SGPT 16 U/L 12-78 [facility] ([facility] Total Protein 7.7 GM/DL 6.4-8.2 [facility] ([facility]) Bilirubin,Total 0.2 mg/dL 0.2-1.0 [facility] ([facility]) Albumin 3.6 GM/DL 3.2-5.2 [facility] ([facility] Albumin/Globulin Ratio 0.9 1.2-2.2 [facility] ([facility]) ID Date Data Source [id number] 07/10/2020 08:17:00 PM EDT [facility] Name Value Range Interpretation Code Description Data Mitra rce(s) Supporting Document(s) SARS coronavirus 2 RNA [Presence] in Res piratory specimen by MICKIE with probe detection NEGATIVE [facility] This lab was ordered by [facility] a nd reported by [facility]. ID Date Data Source [id number] 07/10/2020 07:51:55 PM EDT [facility] Name Value Range Interpretation Code Description Data Mitra rce(s) Supporting Document(s) Progress Note [facility] PFSHKs7qQwUTDnHy55/MYOdsMXVis7PkIDzaNTw7HFnaSDMeD9JpFPR8aU7zWQF8TFyAZbLqJdAhOjI0 lbm [file] AgICAgICAgICAgICAgICAgICAgICAgICAgICAgICAg ICAgICAgICAgICAgICAgICAgICAgICAgICAgICAgICAgICAgICANCiAgICAgICAgICAgICAgICAgICAg ICAgICAgICAgICAgICAgICAgICAgICAgICAgICAgICAgICAgICAgICAgICAgICAgICAgICAgICAgICAg ICAgICAgICAgICAgICAgICAgICANCiAgICAgICAgIC AgICAgICAgICAgICAgICAgICAgICAgICAgICAgICAgICAgICAgICAgICAgICAgICAgICAgICAgICAgIC AgICAgICAgICAgICAgICAgICAgICAgICAgICAgICANCiAgICAgICAgICAgICAgICAgICAgICAgICAgIC AgICAgICAgICAgICAgICAgICAgICAgICAgICAgICAg ICAgICAgICAgICAgICAgICAgICAgICAgICAgICAgICAgICAgICAgICANCiAgICAgICAgICAgICAgICAg ICAgICAgICAgICAgICAgICAgICAgICAgICAgICAgICAgICAgICAgICAgICAgICAgICAgICAgICAgICAg ICAgICAgICAgICAgICAgICAgICAgICANCiAgICAgIC AgICAgICAgICAgICAgICAgICAgICAgICAgICAgICAgICAgICAgICAgICAgICAgICAgICAgICAgICAgIC AgICAgICAgICAgICAgICAgICAgICAgICAgICAgICAgICANCiAgICAgICAgICAgICAgICAgICAgICAgIC AgICAgICAgICAgICAgICAgICAgICAgICAgICAgICAg ICAgICAgICAgICAgICAgICAgICAgICAgICAgICAgICAgICAgICAgICAgICANCiAgICAgICAgICAgICAg ICAgICAgICAgICAgICAgICAgICAgICAgICAgICAgICAgICAgICAgICAgICAgICAgICAgICAgICAgICAg ICAgICAgICAgICAgICAgICAgICAgICAgICANCiAgIC AgICAgICAgICAgICAgICAgICAgICAgICAgICAgICAgICAgICAgICAgICAgICAgICAgICAgICAgICAgIC AgICAgICAgICAgICAgICAgICAgICAgICAgICAgICAgICAgICANCiAgICAgICAgICAgICAgICAgICAgIC AgICAgICAgICAgICAgICAgICAgICAgICAgICAgICAg ICAgICAgICAgICAgICAgICAgICAgICAgICAgICAgICAgICAgICAgICAgICAgICANCjw/iXFdJ8osqYJt zfK3Z8nlTb3AZb2HZQ5cd2BkUDDvNFfziaKhQdaFAmVbUREhPblGXmj8NCbhLG8DmVZwF9RnW2TbGLpu UO8SGIAkQJHomSZiRDMdYEGpZxS0IMAgDCxfFY4YdN DsXEbgUYDzRNMyRC4VFGIpM708jvCcVA8DOm6WFxHvWH1vxf8DJXSsBIHnLekHVxr7EWgqQY9GvIGqkX XqWVAfEOEESoOyC7mph3LbAURnGCBUMKimSU9Xf4GfaFLhGXf+Xy2RHT3qj5AgLKvoETIhVI5adz0WDS fPFqIaA7FolWkjZZLjy1dbNRIoYC2sxGYaMQL5FODc QJU9CYWkbGy1W7hwUPttVk6zMHZaRv4tNH4iIIVaJIE4GtBeZKVZLW0XWYUpBCJilQHfOUQeQDFXFR0T XQxeRRI9CIWosgNmeVSbDQbcZW2RYHExgkXeGDZyLMYNGVk+Li7GEI7qn6GxSKdmDlIwBG7edg7FVLqY LiNfK9K3gAGoW3J5POdxWg0JUJLlLWTlGEOcJKSWZJ sdCO8EJH6htaX2CY7JpUKdIXNmLSHlhBFtMFy6H28prUMcZLsgXB3WNWB+Ketan+Pc0ISQKoAYGfGYQaCn VvAGNONsOmP6EmT0ARd1UxT2YdRL91rJiuebTlMBcdKB7EQH5iEUOgIAGYGY6IlWSwnI0pxkFzJVOgQC POCnGyF24fjCOmPACbGMFzREOvJp8SHOThS1BaylBr dSqutbPqMEFaDFBLRH2IMXyadcCwxWEyeIebHM64yMqsAY3EYm7TUsViXN1pfl9NuNDaCn4JCXCdCb5F QNHiXYMrYPHzUDS4DOEmNlGfEPjbKNUdVJCuLUP3TIPxJTHvYS9ESwPcDFHqEOL4BrMcKOWpVGIiuy1I NXShVDXeEdI8LZRvZUMuSKHqOMzmYNWjUHKxRHE0ZA DvRKLqDE2ZZlDuXVFjKEE8JeYaZUKnAQHsfm3EVYDdDTNnOmRtDDUsHFIkCBHiJHwhWXNhTAUpCKm3KK JbFWKvLI6FBqGvBGScOTTpUIMdCHHrYECywd8IYYExXGRkWkX9WdIqYSOyIJFbOBwxEBHtMOI1WkHoLW VyGDXjYP0WSwQqYEHxNQN9YiGjSOUoSCBfkb7BBUZg KOUgXLmaJXByIWRfXGLuDZdyORPdQOU7SVQ4BGQtYOCxBP9XQlDgZABhVGM0ZPFiOKVnMXNcqv9OETNb SVBpMjXcRlRgQACjVUMaINodCWHuUJJ2LjyrCONcXKXbWO8ZSlIhXTehNMADDam0TVcxM2n2ZANcJs2I Y4Hbl5IcMVRyUXAASHigNO0fvzIiDXThHs2EA5vQVd v4TPAxJPW3RPH4RiS5LVC4MeY4NKelHfNfIpUnVvEfVN1kQCZfMTAiTZeqAxGoHCJ2YmVlGaT9LUIbCt HtAhDuGMHjNuNhKP4RPg6SYgQ2IHU3uPHhYj4FFgNpFb2UUOTCR5LPBn== ID Date Data Source [id number] 07/10/2020 01:37:00 PM EDT [facility] ([facility] Name Value Range Interpretation Code Description Data Mitra rce(s) Supporting Document(s) Thyroid Stimulating Hormone 0.919 ME [facility] ([facility]) ID Date Data Source [id number] 07/10/2020 01:37:00 PM EDT [facility] ([facility]) Name Value Range Interpretation Code Description Data Mitra rce(s) Supporting Document(s) Sodium 138 [facility] Calcium [Mass/volume] in Serum or Plasma 9.3 [facility] ([facility]) Carbon dioxide, total [Moles/volume] in Serum or Plasma 27 [facility] ([facility]) Chloride [Moles/volume] in Serum or Plasma 105 [facility] ([facility]) Potassium [Moles/volume] in Serum or Plasma 3.7 [facility] ([facility]) Blood Urea Nitrogen 10 7-18 [facility] ([facility]) Glucose 104 70-100 [facility] ([facility]iology [facility]) Glomerular filtration rate/1.73 sq M.pre dicted [Volume Rate/Area] in Serum or Plasma by Creatinine-based formula (MDRD) Laboratory test result [facility] ([facility]) Creatinine 0.90 0.55-1.30 [facility] ([facility]) ID Date Data Source [id number] 07/10/2020 01:37:00 PM EDT [facility] ([facility] Name Value Range Interpretation Code Description Data Mitra rce(s) Supporting Document(s) Red Blood Count 4.59 4.00-5.40 [facility] ([facility]) White Blood Count 13.6 4.0-10.0 [facility] ([facility]) Hematocrit 39.0 36.0-47.0 [facility] ([facility]) Platelets 401 150-450 [facility] ([facility]) Hemoglobin 12.4 12.0-15.5 [facility] ([facility]) ID Date Data Source [id number] 02/02/2020 12:15:00 PM EDT [facility] ([facility]) Name Value Range Interpretation Code Description Data Mitra rce(s) Supporting Document(s) ferritin 48 NG/mL 8-252 Ferritin [facility] ([facility]) ID Date Data Source [id number] 02/02/2020 12:15:00 PM EDT [facility] ([facility]) Name Value Range Interpretation Code Description Data Mitra rce(s) Supporting Document(s) total 25(oh) vitamin D 34.2 NG/mL 30.0-100.0 Total 25(Oh) Vitamin D [facility] ([facility]) ID Date Data Source [id number] 02/02/2020 12:15:00 PM EDT [facility] ([facility]) Name Value Range Interpretation Code Description Data Mitra rce(s) Supporting Document(s) folate > 24.0 Folate [facility] ([facility]) vitamin B12 level 448 pg/mL Vitamin B12 Level [facility] ([facility]) ID Date Data Source [id number] 02/02/2020 12:15:00 PM EDT [facility] ([facility]) Name Value Range Interpretation Code Description Data Mitra rce(s) Supporting Document(s) thyroid stimulating hormone 1.050 uIU/mL 0.358-3.740 Thyroid Stimulating Hormone [facility] ([facility]) ID Date Data Source [id number] 02/02/2020 12:15:00 PM EDT [facility]) Name Value Range Interpretation Code Description Data Mitra rce(s) Supporting Document(s) total iron binding capacity 331 ug/dL 250-450 Total Ir on Binding Capacity [facility] ([facility]) percent saturation 16.6 % 13.2-45.0 Percent Saturatio n [facility] ([facility]) iron (fe) 55 ug/dL 50-170 Iron (Fe) [facility] ([facility]) ID Date Data Source [id number] 02/02/2020 12:15:00 PM EDT [facility] ([facility]) Name Value Range Interpretation Code Description Data Mitra rce(s) Supporting Document(s) triglycerides level 138 mg/dL <150 Triglycerides [place] [facility] ([facility]) Cholesterol in LDL [Mass/volume] in Serum or Plasma 98 mg/dL <1 00 LDL Cholesterol [facility] ([facility]) HDL cholesterol 60 mg/dL >40 HDL Cholesterol ATHE NA ([facility]) non-HDL-C 126 mg/dL Non-hdl-c [facility] ([facility]) cholesterol level 186 mg/dL <200 Cholesterol Level [facility] ([facility]) cholesterol risk ratio <5 Cholesterol R isk Ratio [facility] ([facility]) ID Date Data Source [id number] 02/02/2020 12:15:00 PM EDT [facility] ([facility]) Name Value Range Interpretation Code Description Data Mitra rce(s) Supporting Document(s) Hemoglobin A1c/Hemoglobin.total in Blood 5.4 % Hemoglobin a1C [facility] ([facility]) estimated average glucose 108 mg/dL 60-110 Estimated Average Glucose [facility] ([facility]) ID Date Data Source [id number] 02/02/2020 12:15:00 PM EDT [facility] ([facility]) Name Value Range Interpretation Code Description Data Mitra rce(s) Supporting Document(s) hemoglobin 14.0 g/dL 12.0-15.5 Hemoglobin [facility] ([facility]) red blood count 4.85 10 4.00-5.40 Red Blood Count AT[facility] NA ([facility]) white blood count 10.5 10 4.0-10.0 Above high normal White Blood Count [facility] ([facility]) mean corpuscular hemoglobin 28.9 pg 27.0-33.0 Mean Cor puscular Hemoglobin [facility] ([facility]) hematocrit 42.5 % 36.0-47.0 Hematocrit [facility] ([facility]) mean corpuscular volume 87.6 fL 80.0-96.0 Mean Corpusc ular Volume [facility] ([facility]) mean corpuscular HGB conc 32.9 g/dL 32.0-36.5 Mean Corpu scular HGB Conc [facility] ([facility]) mono % 6.5 % 0.0-5.0 Above high normal [place] % [facility] ([facility]) red cell distribution width 12.4 % 11.5-14.5 Red Cell Distribution Width [facility] ([facility]) platelet count, automated 172 10 150-450 Platelet C ount, Automated [facility] ([facility]) neutrophils % 64.4 % 36.0-66.0 Neutrophils % [facility] ( [facility]) lymph % 28.6 % 24.0-44.0 Lymph % [facility] ([facility]) immature granulocyte % 0.3 % 0-3.0 Immature Gran ulocyte % [facility] ([facility]) nucleated red blood cell % 0.0 % 0-0 Nucleated Red Blood Cell % [facility] ([facility]) eos % 0.0 % 0.0-3.0 Eos % [facility] ([facility]) baso % 0.2 % 0.0-1.0 Baso % [facility] ([facility]) baso # 0.0 10 0.0-0.2 Baso # [facility] ([facility]) lymph # 3.0 10 1.5-5.0 Lymph # [facility] ([facility]) neutrophils # 6.7 10 1.5-8.5 Neutrophils # [facility] ( [facility]) mono # 0.7 10 0.0-0.8 [place] # [facility] ([facility]) eos # 0.0 10 0.0-0.5 Eos # [facility] ([facility]) ID Date Data Source [id number] 02/02/2020 09:23:00 AM EDT [facility] ([facility]) Name Value Range Interpretation Code Description Data Mitra rce(s) Supporting Document(s) Iron 55 50-170 [facility] ([facility] Iron binding capacity [Mass/volume] in Serum or Plasma 331 [facility] ([facility]) Tibc % Saturation 16.6 [facility] ([facility]) ID Date Data Source [id number] 02/02/2020 09:23:00 AM EDT [facility] ([facility]) Name Value Range Interpretation Code Description Data Mitra rce(s) Supporting Document(s) Cholesterol 186 [facility] ([facility]) Triglycerides 138 [facility] ([facility]) Cholesterol in LDL [Mass/volume] in Serum or Plasma by calculation 98 [facility] ([facility]) HDL 60 [facility] ([facility] Chol/HDL Ratio 3.100 [facility] ([facility]) ID Date Data Source [id number] 02/02/2020 09:23:00 AM EDT [facility] ([facility]) Name Value Range Interpretation Code Description Data Mitra rce(s) Supporting Document(s) Red Blood Count 4.85 4.00-5.40 [facility] ([facility]) White Blood Count 10.5 4.0-10.0 [facility] ([facility]) Hemoglobin 14.0 12.0-15.5 [facility] ([facility]) Platelets 172 150-450 [facility] ([facility] Hematocrit 42.5 36.0-47.0 [facility] ([facility]) ID Date Data Source [id number] 02/02/2020 09:23:00 AM EDT [facility] ([facility]) Name Value Range Interpretation Code Description Data Mitra rce(s) Supporting Document(s) Hemoglobin A1c/Hemoglobin.total in Blood 5.4 [facility] ([facility]) Procedure Social History Code Duration Value Status Description Data Source(s ) Smoking 01/24/2021 12:00:00 AM EDT Unknown if ever smoked comp leted Unknown if ever smoked [facility] ([facility]) Smoking 01/10/2021 12:00:00 AM EDT Unknown if ever smoked comp leted Unknown if ever smoked [facility] ([facility]) Smoking 12/25/2020 12:00:00 AM EDT Unknown if ever smoked comp leted Unknown if ever smoked [facility] ([facility]) Smoking 11/27/2020 12:00:00 AM EDT Unknown if ever smoked comp leted Unknown if ever smoked [facility] ([facility]) Smoking 11/21/2020 12:00:00 AM EDT Unknown if ever smoked comp leted Unknown if ever smoked [facility] ([facility]) Smoking 10/26/2020 12:00:00 AM EDT Unknown if ever smoked comp leted Unknown if ever smoked [facility] ([facility]) Smoking 09/29/2020 12:00:00 AM EDT Unknown if ever smoked comp leted Unknown if ever smoked [facility] ([facility]) Smoking 09/04/2020 12:00:00 AM EDT Patient is a former smoker completed Patient is a former smoker [facility] [facility]ALTH[facility]) Smoking 09/01/2020 12:00:00 AM EDT Unknown if ever smoked comp leted Unknown if ever smoked [facility] ([facility]) Smoking 08/03/2020 12:00:00 AM EDT Unknown if ever smoked comp leted Unknown if ever smoked [facility] ([facility]) Smoking 07/10/2020 12:00:00 AM EDT Unknown if ever smoked comp leted Unknown if ever smoked [facility] ([facility]) Smoking 06/29/2020 12:00:00 AM EDT Unknown if ever smoked comp leted Unknown if ever smoked [facility] ([facility]) Smoking 05/31/2020 12:00:00 AM EST Unknown if ever smoked comp leted Unknown if ever smoked [facility] ([facility]) Smoking 05/25/2020 12:00:00 AM EST Unknown if ever smoked comp leted Unknown if ever smoked [facility] ([facility]) Smoking 05/19/2020 12:00:00 AM EST Unknown if ever smoked comp leted Unknown if ever smoked [facility] ([facility]) Smoking 05/09/2020 12:00:00 AM EST Unknown if ever smoked comp leted Unknown if ever smoked [facility] ([facility]) Smoking 05/04/2020 12:00:00 AM EST Unknown if ever smoked comp leted Unknown if ever smoked [facility] ([facility]) Smoking 05/01/2020 12:00:00 AM EST Unknown if ever smoked comp leted Unknown if ever smoked [facility] ([facility]) Smoking 04/24/2020 12:00:00 AM EST Unknown if ever smoked comp leted Unknown if ever smoked [facility] ([facility]) Smoking 04/20/2020 12:00:00 AM EST Unknown if ever smoked comp leted Unknown if ever smoked [facility] ([facility]) Smoking 04/03/2020 12:00:00 AM EST Unknown if ever smoked comp leted Unknown if ever smoked [facility] ([facility]) Smoking 03/31/2020 12:00:00 AM EST Unknown if ever smoked comp leted Unknown if ever smoked [facility] ([facility]) Smoking 03/29/2020 12:00:00 AM EST Unknown if ever smoked comp leted Unknown if ever smoked [facility] ([facility]) Smoking 03/21/2020 12:00:00 AM EST Unknown if ever smoked comp leted Unknown if ever smoked [facility] ([facility]) Smoking 02/24/2020 12:00:00 AM EST Unknown if ever smoked comp leted Unknown if ever smoked [facility] ([facility]) Smoking 02/22/2020 12:00:00 AM EST Unknown if ever smoked comp leted Unknown if ever smoked [facility] ([facility]) Smoking 01/27/2020 12:00:00 AM EDT Unknown if ever smoked comp leted Unknown if ever smoked [facility] ([facility]) Smoking 01/24/2020 12:00:00 AM EDT Unknown if ever smoked comp leted Unknown if ever smoked [facility] ([facility]) Smoking 01/03/2020 12:00:00 AM EDT Unknown if ever smoked comp leted Unknown if ever smoked [facility] ([facility]) Smoking 12/31/2019 12:00:00 AM EDT Unknown if ever smoked comp leted Unknown if ever smoked [facility] ([facility]) Smoking 12/30/2019 12:00:00 AM EDT Unknown if ever smoked comp leted Unknown if ever smoked [facility] ([facility]) Smoking 12/22/2019 12:00:00 AM EDT Unknown if ever smoked comp leted Unknown if ever smoked [facility] ([facility]) Vital Signs ID Date Data Source UNK Name Value Range Interpretation Code Description Data Source(s) Systolic blood pressure--sitting 116 mm[Hg] 116 mm[Hg] [facility] ([facility]) Ra, large cuff Systolic blood pressure--standing 112 mm[Hg] 11 2 mm[Hg] [facility] ([facility]) Ra, large cuff Diastolic blood pressure--standing 74 mm[Hg] 7 4 mm[Hg] [facility] ([facility]) Ra, large cuff Systolic blood pressure--supine 120 mm[Hg] 120 mm[Hg] [facility] ([facility]) Ra, large cuff Diastolic blood pressure--supine 78 mm[Hg] 78 mm[Hg] [facility] ([facility]) Ra, large cuff Body weight 199.00 [lb_av] 199.00 [lb_av] [facility] T ([facility]) Body height 68 [in_i] 68 [in_i] [facility]) 5'8" Body mass index (BMI) [Ratio] 30.3 kg/m2 30.3 k g/m2 [facility] ([facility]) Heart rate 66 /min 66 /min [facility] ([facility]) Diastolic blood pressure--sitting 74 mm[Hg] 74 mm[Hg] [facility] ([facility]) Ra, large cuff Body height 0.00 in Normal (applies to non-numeric resu lts) 0.00 in [facility] ([facility]) Body weight Measured 0.00 lbs Normal (applies to n on-numeric results) 0.00 lbs [facility] ([facility]) Body mass index (BMI) [Ratio] 0.00 kg/m2 No rmal (applies to non-numeric results) 0.00 kg/m2 [facility] ([facility]) Systolic blood pressure 0 mm[Hg] Normal (applies t o non-numeric results) 0 mm[Hg] [facility]) Diastolic blood pressure 0 mm[Hg] Normal (applies to non-numeric results) 0 mm[Hg] [facility] ([facility]) Body height 0.00 in Normal (applies to non-numeric resu lts) 0.00 in [facility] ([facility]) Body weight Measured 0.00 lbs Normal (applies to n on-numeric results) 0.00 lbs [facility] ([facility]) Body mass index (BMI) [Ratio] 0.00 kg/m2 No rmal (applies to non-numeric results) 0.00 kg/m2 [facility] ([facility]) Systolic blood pressure 0 mm[Hg] Normal (applies t o non-numeric results) 0 mm[Hg] [facility] ([facility]) Diastolic blood pressure 0 mm[Hg] Normal (applies to non-numeric results) 0 mm[Hg] [facility] ([facility]) Body height 68 [in_i] 68 [in_i] [place] ([facility]) Body height 0.00 in Normal (applies to non-numeric resu lts) 0.00 in [facility] ([facility]) Body weight Measured 0.00 lbs Normal (applies to n on-numeric results) 0.00 lbs [facility] ([facility]) Body mass index (BMI) [Ratio] 0.00 kg/m2 No rmal (applies to non-numeric results) 0.00 kg/m2 [facility] ([facility]) Systolic blood pressure 0 mm[Hg] Normal (applies t o non-numeric results) 0 mm[Hg] [facility] ([facility]) Diastolic blood pressure 0 mm[Hg] Normal (applies to non-numeric results) 0 mm[Hg] [facility] ([facility]) Diastolic blood pressure 83 mm[Hg] 83 mm[Hg] [facility] ([facility]) Body height 68 [in_i] 68 [in_i] [facility] ([facility]) Body mass index (BMI) [Ratio] 31 kg/m2 31 kg/ m2 [facility] ([facility]) Systolic blood pressure 125 mm[Hg] 125 mm[Hg] [facility] ([facility]) Body weight 3264 [oz_av] 3264 [oz_av] [facility] ([facility]) Diastolic blood pressure 83 mm[Hg] 83 mm[Hg] [facility] ([facility]) Body height 68 [in_i] 68 [in_i] [facility] ([facility]) Body mass index (BMI) [Ratio] 31 kg/m2 31 kg/ m2 [facility] ([facility]) Systolic blood pressure 125 mm[Hg] 125 mm[Hg] A [facility] ([facility]) Body weight 3264 [oz_av] 3264 [oz_av] [facility] ([facility]) Body height 0.00 in Normal (applies to non-numeric resu lts) 0.00 in [facility] ([facility]) Body weight Measured 0.00 lbs Normal (applies to n on-numeric results) 0.00 lbs [facility] ([facility]) Body mass index (BMI) [Ratio] 0.00 kg/m2 No rmal (applies to non-numeric results) 0.00 kg/m2 [facility] ([facility]) Systolic blood pressure 0 mm[Hg] Normal (applies t o non-numeric results) 0 mm[Hg] [facility] ([facility]) Diastolic blood pressure 0 mm[Hg] Normal (applies to non-numeric results) 0 mm[Hg] [facility] ([facility]) ID Date Data Source [id number] 07/10/2020 07:51:55 PM EDT [facility] Name Value Range Interpretation Code Description Data Source(s) TRANSFER FROM [facility] Patient Treatment Plan of Care Planned Activity Planned Date Details Description Data Source (s) vitamin d3 50 mcg (1999) caps [facility] ([facility]) vitamin d3 1000 unit caps [facility] ([facility]) Vitamin D3 25 Mcg CAP PO QAM [facility] ([facility]) Sulfamethoxazole 800 MG / Trimethoprim 160 MG Oral Tablet [facility] ([facility]) Sertraline 50 MG Oral Tablet [facility] ([facility]) Sertraline 25 MG Oral Tablet [facility] ([facility]) Sertraline 100 MG Oral Tablet [facility] ([facility]) Omeprazole 20 MG Delayed Release Oral Capsule [facility] ([facility]) Mirtazapine 7.5 MG Oral Tablet [facility] ([facility]) Mirtazapine 30 MG Oral Tablet [facility] ([facility]) Mirtazapine 15 MG Oral Tablet [facility] ([facility]) Lorazepam 1 MG Oral Tablet [facility] ([facility]) Levetiracetam 250 MG Oral Tablet [facility] ([facility]) Hydroxyzine Pamoate 25 MG Oral Capsule [facility] ([facility]) Hydroxyzine Hydrochloride 50 MG Oral Tablet [facility] ([facility]) Hydroxyzine Hydrochloride 25 MG Oral Tablet [facility] ([facility]) ferrous sulfate 325 MG TAB PO TID [facility] ([facility]) Escitalopram 20 MG Oral Tablet [facility] ([facility]) Cholecalciferol 2000 UNT Oral Capsule [facility] ([facility]) Cefuroxime 500 MG Oral Tablet [facility] ([facility]) buspirone hydrochloride 7.5 MG Oral Tablet [facility] ([facility]) Aristada Initio 675 mg/2.4 mL suspension, extend.rel. IM syringe [facility] ([facility]) Aristada 441 mg/1.6 mL suspension, extend.rel. IM syringe [facility] ([facility]) aripiprazole 10 MG Oral Tablet [facility] ([facility]) Amantadine Hydrochloride 100 MG Oral Capsule [facility] ([facility]) vitamin d3 50 mcg (2000 ut) caps [facility] ([facility]) vitamin d3 1000 unit caps [facility] ([facility]) Vitamin D3 25 Mcg CAP PO QAM [facility] ([facility]) Sulfamethoxazole 800 MG / Trimethoprim 160 MG Oral Tablet [facility] ([facility]) Sertraline 50 MG Oral Tablet [facility] ([facility]) Sertraline 25 MG Oral Tablet [facility] ([facility]) Sertraline 100 MG Oral Tablet [facility] ([facility]) Mirtazapine 30 MG Oral Tablet [facility] ([facility]) Lorazepam 1 MG Oral Tablet [facility] ([facility]) Levetiracetam 250 MG Oral Tablet [facility] ([facility]) Hydroxyzine Pamoate 25 MG Oral Capsule [facility] ([facility]) Hydroxyzine Hydrochloride 50 MG Oral Tablet [facility] ([facility]) Hydroxyzine Hydrochloride 25 MG Oral Tablet [facility] ([facility]) ferrous sulfate 325 MG Delayed Release Oral Tablet [facility] ([facility]) ferrous sulfate 325 MG TAB PO TID [facility] ([facility]) Escitalopram 20 MG Oral Tablet [facility] ([facility]) Cefuroxime 500 MG Oral Tablet [facility] ([facility]) buspirone hydrochloride 7.5 MG Oral Tablet [facility] ([facility]) Aristada Initio 675 mg/2.4 mL suspension, extend.rel. IM syringe [facility] ([facility]) Aristada 441 mg/1.6 mL suspension, extend.rel. IM syringe [facility] ([facility]) aripiprazole 10 MG Oral Tablet [facility] ([facility]) Amantadine Hydrochloride 100 MG Oral Capsule [facility] ([facility])
--- OUTSIDE RECORDS SUMMARY | 2021-02-14 17:55 | CCD ---
Author Author [facility] Organization [facility] Address Unknown Phone Unavailable Care Team Providers Care Box Truck Washer Name Role Phone Simon Travisley DRAW FIRE OPERATOR DRAW FIRE OPERATOR Unavailable Unavailable Burak, Alejandra DRAW FIRE OPERATOR DRAW FIRE OPERATOR Unavailable Unavailable Catherine Tejada Unavailable Do Iyer Unavailable Burak, A Alejandra DRAW FIRE OPERATOR Unavailable Unavailable Burak, A Alejandra DRAW FIRE OPERATOR Unavailable Unavailable Burak, A Alejnadra DRAW FIRE OPERATOR Unavailable Unavailable Burak, A Alejandra DRAW FIRE OPERATOR Unavailable Unavailable Burak, A Alejandra DRAW FIRE OPERATOR Unavailable Unavailable Burak, A Alejandra DRAW FIRE OPERATOR Unavailable Unavailable Burak, A Alejandra DRAW FIRE OPERATOR Unavailable Unavailable Burak, A Alejandra DRAW FIRE OPERATOR Unavailable Unavailable Burak, A Alejandra DRAW FIRE OPERATOR Unavailable Unavailable Burak, A Alejandra DRAW FIRE OPERATOR Unavailable Unavailable Burak, A Alejandra DRAW FIRE OPERATOR Unavailable Unavailable Burak, A Alejandra DRAW FIRE OPERATOR Unavailable Unavailable Burak, A Alejandra DRAW FIRE OPERATOR Unavailable Unavailable Bascom, A Alejandra DRAW FIRE OPERATOR Unavailable Unavailable Bascom, A Alejandra DRAW FIRE OPERATOR Unavailable Unavailable Bascom, A Alejandra DRAW FIRE OPERATOR Unavailable Unavailable Bascom, A Alejandra DRAW FIRE OPERATOR Unavailable Unavailable Bascom, A Alejandra DRAW FIRE OPERATOR Unavailable Unavailable Bascom, A Alejandra DRAW FIRE OPERATOR Unavailable Unavailable Bascom, A Alejandra DRAW FIRE OPERATOR Unavailable Unavailable Bascom, A Alejandra DRAW FIRE OPERATOR Unavailable Unavailable Bascom, A Alejandra DRAW FIRE OPERATOR Unavailable Unavailable Bascom, A Alejandra DRAW FIRE OPERATOR Unavailable Unavailable Bascom, A Alejandra DRAW FIRE OPERATOR Unavailable Unavailable Bascom, A Alejandra DRAW FIRE OPERATOR Unavailable Unavailable Bascom, A Alejandra DRAW FIRE OPERATOR Unavailable Unavailable Bascom, A Alejandra DRAW FIRE OPERATOR Unavailable Unavailable Bascom, A Alejandra DRAW FIRE OPERATOR Unavailable Unavailable Bascom, A Alejandra DRAW FIRE OPERATOR Unavailable Unavailable Bascom, A Alejandra DRAW FIRE OPERATOR Unavailable Unavailable Burak, A Alejandra DRAW FIRE OPERATOR Unavailable Unavailable Scordo, M Hillary PA Unavailable [...] Unavailable VALERIY, L ALEJANDRA PA Unavailable Unavailable VAELRIY, L ALEJANDRA PA Unavailable Unavailable VALERIY, L [...] , ORGANIZATION NPI Unavailable Unavailable MACQUEEN, REGINA MILK COLLECTOR Unavailable Unavailable MACQUEEN, REGINA MILK COLLECTOR Unavailable Unavailable MACQUEEN, REGINA MILK COLLECTOR Unavailable Unavailable MACQUEEN, REGINA MILK COLLECTOR Unavailable Unavailable MACQUEEN, REGINA MILK COLLECTOR Unavailable Unavailable MACQUEEN, REGINA MILK COLLECTOR Unavailable Unavailable MACQUEEN, REGINA MILK COLLECTOR Unavailable Unavailable MACQUEEN, REGINA MILK COLLECTOR Unavailable Unavailable MACQUEEN, REGINA MILK COLLECTOR Unavailable Unavailable MACQUEEN, REGINA MILK COLLECTOR Unavailable Unavailable SYSTEM, NOT IN PROVIDER Unavailable Unavailable Plains, K Sandra PMH-MILK COLLECTOR Unavailable Unavailable Plains, K Sandra PMH-MILK COLLECTOR Unavailable Unavailable Jimmie, K Sandra PMH-MILK COLLECTOR Unavailable Unavailable Jimmie, K Sandra PMH-MILK COLLECTOR Unavailable Unavailable Jimmie, K Sandra PMH-MILK COLLECTOR Unavailable Unavailable Plains, K Sandra PMH-MILK COLLECTOR Unavailable Unavailable Plains, K Sandra PMH-MILK COLLECTOR Unavailable Unavailable Jimmie, K Sandra PMH-MILK COLLECTOR Unavailable Unavailable Travis, F Gemma DRAW FIRE OPERATOR-BC Unavailable Unavailable Travis, F Gemma DRAW FIRE OPERATOR-BC Unavailable Unavailable Travis, F Gemma DRAW FIRE OPERATOR-BC Unavailable Unavailable Travis, F Gemma DRAW FIRE OPERATOR-BC Unavailable Unavailable Travis, F Gemma DRAW FIRE OPERATOR-BC Unavailable Unavailable Travis, F Gemma DRAW FIRE OPERATOR-BC Unavailable Unavailable Travis, F Gemma DRAW FIRE OPERATOR-BC Unavailable Unavailable Travis, F Gemma DRAW FIRE OPERATOR-BC Unavailable Unavailable Travis, F Gemma DRAW FIRE OPERATOR-BC Unavailable Unavailable Travis, F Gemma DRAW FIRE OPERATOR-BC Unavailable Unavailable Travis, F Gemma DRAW FIRE OPERATOR-BC Unavailable Unavailable Travis, F Gemma DRAW FIRE OPERATOR-BC Unavailable Unavailable Travis, F Gemma DRAW FIRE OPERATOR-BC Unavailable Unavailable Travis, F Gemma DRAW FIRE OPERATOR-BC Unavailable Unavailable Travis, F Gemma DRAW FIRE OPERATOR-BC Unavailable Unavailable Travis, F Gemma DRAW FIRE OPERATOR-BC Unavailable Unavailable Travis, F Gemma DRAW FIRE OPERATOR-BC Unavailable Unavailable Travis, F Gemma DRAW FIRE OPERATOR-BC Unavailable Unavailable Travis, F Gemma DRAW FIRE OPERATOR-BC Unavailable Unavailable Travis, F Gemma DRAW FIRE OPERATOR-BC Unavailable Unavailable Travis, F Gemma DRAW FIRE OPERATOR-BC Unavailable Unavailable Thaddeus, Dixon Menendez DRAW FIRE OPERATOR-BC Unavailable Unavailable Dixon Travis DRAW FIRE OPERATOR-BC Unavailable Unavailable Re-disclosure Warning The records that [...] is protected by Article 27-F of the [facility] Public Health law. If you continue you may have access to information: Regarding HIV / AIDS; Provided by facilities licensed or operated by the [facility] Office of Mental Health; or Provided by the [facility] Office for People With Developmental Disabilities. If such information is present, then the following [facility] mandated warning applies: This information has [...] law may result in a fine or mcc sentence or both. A general authorization for the release of medical or other information is NOT sufficient authorization for further disc losure. Allergies and Adverse Reactions Type Description Substance Reaction Status Data Source(s ) Propensity to adverse reactions to substance amantadine hcl Amantadine Hydrochloride 100 MG Oral Capsule Active [facility] ([facility]) Family History Family Member Name Family Member Gender Family Member Status Date o f Status Description Data Source(s) Unknown Unknown Problem [facility] ([facility], ) 1 BROTHER Encounters Encounter Providers Location Date Indications Data Source(s ) Injectable Psychotropic Medication Administration (Inj ection Only) Attender: Xena Arambula [facility] Assisted 01/24/2021 02:30:00 AM EDT - 01/24/2021 02:30:00 AM EDT [facility] ([facility]) Attender: Xena Arambula 01/24/2021 12:00:00 AM EDT [facility] ([facility]) Brief Individual Psychotherapy - 30 min Attender: Do madrid [facility] 01/10/2021 12:30:00 PM EDT - 01/10/2021 12:30:00 PM EDT [facility] ([facility]) Attender: Do Iyer 01/10/2021 12:00:00 AM EDT [facility] ([facility]) Injectable Medication Administration w/ Monitoring & E ducation Attender: [facility] 12/25/2020 11:00:00 AM EDT - 12/25/2020 11:00:00 AM EDT [facility] ([facility]) Attender: Yohana Rahman 12/25/2020 12:00:00 AM EDT [facility] ([facility]) Injectable Medication Administration w/ Monitoring & E ducation [facility] 11:30:00 AM EDT - 11/27/2020 11:30:00 AM EDT [facility] ([facility]) Attender: Yohana Rahman 11/27/2020 12:00:00 AM EDT [facility] ([facility]) Brief Individual Psychotherapy - 30 min Attender: Catherine mendes [facility] 11/21/2020 10:00:00 AM EDT - 11/21/2020 10:00:00 AM EDT [facility] ([facility]) Attender: Catherine Tejada 11/21/2020 12:00:0 0 AM EDT [facility] ([facility]) Injectable Medication Administration w/ Monitoring & E ducation [facility] 10/26/2020 11:30:00 AM EDT - 10/26/2020 11:30:00 AM EDT [facility] ([facility]) Brief Individual Psychotherapy - 30 min Attender: Catherine mendes [facility] 10/26/2020 11:15:00 AM EDT - 10/26/2020 11:15:00 AM EDT [facility] ([facility]) Attender: Catherine Tejada 10/26/2020 12:00:0 0 AM EDT [facility] ([facility]) Attender: Yohana Rahman 10/26/2020 12:00:00 AM EDT [facility] ([facility]) Injectable Medication Administration w/ Monitoring & E ducation Attender: [facility] 09/29/2020 01:00:00 AM EDT - 09/29/2020 01:00:00 AM EDT [facility] ([facility]) Attender: Yohana Daleania 09/29/2020 12:00:00 AM EDT [facility] ([facility]) Outpatient Attender: ALEJANDRA CROOKS PA Main Office 09/04/2020 0 1:00:00 PM EDT [facility] ([facility]) Injectable Medication Administration w/ Monitoring & E ducation Attender: [facility] 09/01/2020 02:00:00 AM EDT - 09/01/2020 02:00:00 AM EDT [facility] ([facility]) Attender: Yohana Daleania 09/01/2020 12:00:00 AM EDT [facility] ([facility]) Injectable Medication Administration w/ Monitoring & E ducation Attender: [facility] 08/03/2020 03:00:00 AM EDT - 08/03/2020 03:00:00 AM EDT [facility] ([facility]) Extended Individual Psychotherapy - 45 min [facility] 02:00:00 AM EDT - 08/03/2020 02:00:00 AM EDT [facility] ([facility]) Attender: Yohana Rahman 08/03/2020 12:00:00 AM EDT [facility] ([facility]) Attender: Catherine Tejada 08/03/2020 12:00:0 0 AM EDT [facility] ([facility]) Outpatient Referrer: PROVIDER SYSTEM [address] [place] [address] 07/10/2020 07:5 0:00 PM EDT schizoaffective, SI, paranoid [facility] schizoaffective, SI, paranoid Injectable Psychotropic Medication Administration (Inj ection Only) Attender: Xena Arambula [facility] 07/10/2020 02:00:00 AM EDT - 07/10/2020 02:00:00 AM EDT [facility] ([facility]) Brief Individual Psychotherapy - 30 min Attender: Catherine mendes [facility] 07/10/2020 01:30:00 AM EDT - 07/10/2020 01:30:00 AM EDT [facility] ([facility]) Attender: Catherine Tejada 07/10/2020 12:00:0 0 AM EDT [facility] ([facility]) Attender: Xena Arambula 07/10/2020 12:00:00 AM EDT [facility] ([facility]) Attender: Acacia William 06/29/2020 12:00:00 AM EDT [facility] ([facility]) Injectable Psychotropic Medication Administration (Inj ection Only) Attender: Acacia SantiagoRaul [facility] 06/28/2020 01:00:00 AM EDT - 06/28/2020 01:00:00 AM EDT [facility] ([facility]) Injectable Psychotropic Medication Administration (Inj ection Only) Attender: Acacia William [facility] 05/31/2020 09:30:00 AM EST - 05/31/2020 09:30:00 AM EST [facility] ([facility]) Outpatient Attender: Sandra Samuel [facility] Lenard Gamboa y Assisted 05/31/2020 08:45:00 AM EST - 05/31/2020 08:45:00 AM EST [facility] ([facility]) Attender: Sandra WEIRCYNTHIA 05/31/2020 12: 00:00 AM EST [facility] ([facility]) Attender: Acacia William 05/31/2020 12:00:00 AM EST [facility] ([facility]) Outpatient [facility]: [facility] Len[facility] y Assisted 05/25/2020 11:00:00 AM EST - 05/25/2020 11:00:00 AM EST [facility] ([facility]) Attender: Sandra WEIRCYNTHIA 05/25/2020 12: 00:00 AM EST [facility] ([facility]) Extended Individual Psychotherapy - 45 min [facility] 05/19/2020 01:45:00 AM EST - 05/19/2020 01:45:00 AM EST [facility] ([facility]) Attender: Catherine Tejada 05/19/2020 12:00:0 0 AM EST [facility] ([facility]) Extended Individual Psychotherapy - 45 min Attender: Lorraine muller [facility] 05/09/2020 10:45:00 AM EST - 05/09/2020 10:45:00 AM EST [facility] ([facility]) Attender: Catherine Tejada 05/09/2020 12:00:0 0 AM EST [facility] ([facility]) Injectable Medication Administration w/ Monitoring & E ducation Attender: ORGANIZATION NPI ALIASES [facility] 05/04/2020 09:00: 00 AM EST - 05/04/2020 09:00:00 AM EST [facility] ([facility]) Outpatient Attender: REGINA PITTMAN NP [facility] rosalva 05/04/2020 03:00:00 AM EST - 05/04/2020 03:00:00 AM EST [facility] ([facility]) Attender: ORGANIZATION NPI ALIASES * 05/04/2020 12:00:00 AM EST [facility] ([facility]) Attender: REGINA PITTMAN NP 05/04/2020 12:00:00 AM EST [facility] ([facility]) Injectable Psychotropic Medication Administration (Inj ection Only) Attender: ORGANIZATION NPI ALIASES [facility] Assisted 05/01/2020 09:00: 00 AM EST - 05/01/2020 09:00:00 AM EST [facility] ([facility]) Attender: ORGANIZATION NPI ALIASES * 05/01/2020 12:00:00 AM EST [facility] ([facility]) Extended Individual Psychotherapy - 45 min Att[facility]: [facility] 04/24/[facility] 11:30:00 AM EST - 04/24/2020 11:30:00 AM EST [facility] ([facility]) Attender: Catherine Tejada 04/24/2020 12:00:0 0 AM EST [facility] ([facility]) Outpatient Attender: Sandra [facility] 04/20/2020 09:00:00 AM EST - 04/20/2020 09:00:00 AM EST [facility] ([facility]) Outpatient Attender: Sandra WEIRCYNTHIA [facility]isted 04/20/2020 09:00:00 AM EST - 04/20/2020 09:00:00 AM EST [facility] ([facility]) Attender: Sandra HANNA 04/20/2020 12: 00:00 AM EST [facility] ([facility]) Hillary Jarrett PA-C: [address] [place] [phone], Ph. Attender: Hillary COY [facility] Medical 04/19/2020 12:00:00 AM EST [facility] ([facility]) Injectable Psychotropic Medication Administration (Inj ection Only) [facility] 04/03/2020 11:30:00 AM EST - 04/03/2020 11:30:00 AM EST [facility] ([facility]) [facility]: [facility]ena [facility] 04/03/2020 12:00:00 AM EST [facility] ([facility]) Injectable Psychotropic Medication Administration (Inj ection Only) [facility]31[facility] 10:00:00 AM EST - 03/31/2020 10:00:00 AM EST [facility] ([facility]) [facility]: [facility]ena [facility] 03/31/2020 12:00:00 AM EST [facility] ([facility]) Outpatient Attender: Sandra Samuel [facility] Lenardlydia [facility] Assisted 03/29/2020 09:30:00 AM EST - 03/29/2020 09:30:00 AM EST [facility] ([facility]) Attender: Sandra Samuel [facility] 03/29/2020 12: 00:00 AM EST [facility] ([facility]) Extended Individual Psychotherapy - 45 min Attender: Lorraine Tejada [facility] 03/21/2020 10:45:00 AM EST - 03/21/2020 10:45:00 AM EST [facility] ([facility]) Attender: Catherine Tejada 03/21/2020 12:00:0 0 AM EST [facility] ([facility]) Outpatient Attender: Sandra Samuel [facility] Assisted 02/24/2020 11:30:00 AM EST - 02/24/2020 11:30:00 AM EST [facility] ([facility]) Attender: Sandra Samuel [facility] 02/24/2020 12: 00:00 AM EST [facility] ([facility]) TEMPMHCTelemed 30" Psychotherapy Attender: Catherine thurman [facility] Assisted 02/22/2020 11:45:00 AM EST - 02/22/2020 11:45:00 AM EST [facility] ([facility]) Attender: Catherine Tejada 02/22/2020 12:00:0 0 AM EST [facility] ([facility]) Hillary Jarrett PA-C: [address], [place] [phone], Ph. Attender: Hillary COY [facility] Medical 02/02/2020 12:00:00 AM EDT [facility] ([facility]) Hillary Jarrett PA-C: [address], [place] [phone], Ph. Attender: Hillary COY [facility] Medical 02/02/2020 12:00:00 AM EDT [facility] ([facility]) Outpatient Attender: Alejandra MCCOLLUM FP 01/29/2020 08:4 3:59 PM EDT [facility] TEMPMHCTelemed 30" Psychotherapy Attender: Catherine thurman [facility] Assisted 01/27/2020 09:45:00 AM EDT - 01/27/2020 09:45:00 AM EDT [facility] ([facility]) Attender: Catherine Tejada 01/27/2020 12:00:0 0 AM EDT [facility] ([facility]) Outpatient Attender: VEDA MCCOLLUM FP 01/26/2020 09:39:01 A M EDT [facility] Outpatient Attender: Sandra Samuel [facility] Assisted 01/24/2020 01:00:00 AM EDT - 01/24/2020 01:00:00 AM EDT [facility] ([facility]) Attender: Sandra Samuel [facility] 01/24/2020 12: 00:00 AM EDT [facility] ([facility]) Outpatient Attender: VEDA MCCOLLUM 01/04/2020 11:24:00 A M EDT [facility] Injectable Medication Administration w/ Monitoring & E ducation Attender: Veronica Flores [facility] 01/03/2020 10:30:00 AM EDT - 01/03/2020 10:30:00 AM EDT [facility] ([facility] Outpatient Attender: FREIDA CHOWDARY MD [facility] 01/03/2020 10:15:00 AM EDT - 01/03/2020 10:15:00 AM EDT [facility] ([facility]) Attender: FREIDA CHOWDARY MD 01/03/2020 12:00:00 A M EDT [facility] ([facility]) Attender: Veronica Flores 01/03/2020 12:00:00 AM EDT [facility] ([facility]) Outpatient Attender: OLAF ARRIOLA MD 01/03/2020 12:00:0 0 AM [facility] Injectable Medication Administration w/ Monitoring & E ducation Attender: Veronica Flores [facility] 12/31/2019 09:30:00 AM EDT - 12/31/2019 09:30:00 AM EDT [facility] ([facility] Outpatient Attender: VEDA MCKEON 12/31/2019 07:43:01 A M EDT [facility] Attender: Veronica Flores 12/31/2019 12:00:00 AM EDT [facility] ([facility]) Outpatient Attender: VEDA MCKEON 12/30/2019 11:52:00 AM EDT [facility] Injectable Medication Administration w/ Monitoring & E ducation Attender: Veronica Flores [facility] 12/30/2019 09:30:00 AM EDT - 12/30/2019 09:30:00 AM EDT [facility] ([facility]) Attender: Veronica Flores 12/30/2019 12:00:00 AM EDT [facility] ([facility]) Outpatient Attender: Gemma Travis DRAW FIRE OPERATOR-BC FP 12/26/2019 10: 59:00 AM EDT [facility] Outpatient Attender: Sandra Samuel [facility] Lenard Skinner 12/22/2019 01:30:00 AM EDT - 12/22/2019 01:30:00 AM EDT [facility] ([facility]) Attender: Sandra FELDMAN-MARYANN 12/22/2019 12: 00:00 AM EDT [facility] ([facility]) Outpatient [address] [address] 3669-[employer] Integration Team 10/28/2016 02:30:00 PM EDT - 01/24/2021 12:00:00 PM EDT [facility] ([facility]) Patient discharged. Functional Status Immunizations Vaccine Date Status Description Data Source(s) COVID-19 VACCINE Sharla 09/07/2020 12:00:00 AM EDT completed [employer] Vaccine Series Complete: YESThis Data wa s Submitted to [facility]. Medications Medication Brand Name Start Date Product Form Dose Route Admi nistrative Instructions Pharmacy Instructions Status Indications Reaction Description Data Source(s) ferrous sulfate 325 MG Oral Tablet Ferrous Sulfate 09/03/2020 12:00 :00 AM EDT ORAL active [facility] ([facility] buspirone hydrochloride 7.5 MG Oral Tablet Buspirone HCL 09/03/2020 12:00:00 AM EDT ORAL active [facility] Mirtazapine 15 MG Oral Tablet Mirtazapine 09/03/2020 12:00:00 AM EDT ORAL active [facility] ([facility]) Sertraline 25 MG Oral Tablet Sertraline HCL 09/03/2020 12:00:00 AM EDT ORAL active [facility] ([facility]) Sertraline 100 MG Oral Tablet Sertraline HCL 09/03/2020 12:00:00 AM E DT ORAL active [facility] ([facility] Aristada Aristada 09/03/2020 12:00:00 AM EDT activ e [facility] ([facility]) Cholecalciferol 1000 UNT Oral Tablet Vitamin D3 09/03/2020 12:00:00 A M EDT ORAL active [facility] ([facility]) Sertraline 25 MG Oral Tablet sertraline 08/23/2020 12:00:00 AM EDT 25 mg by mouth completed <td ID="Medica tionRxNorm_5">874933</td><td ID="MedicationMedication_5">sertraline</td><td ID="MedicationRoute_5">by mouth</td><td ID="MedicationRouteConcept_5">K45343</td><td ID="MedicationStartDate_5">08/23/2020</td><td ID="MedicationStopDate_5">10/22/2020</td><td ID="MedicationDosageFrequency_5">once a day</td><td ID="MedicationDuration_5">30</td><td ID="MedicationFormulaStrength_5">25 mg</td><td ID="MedicationDosageForm_5">tablet</td><td ID="MedicationDosageFormCode_5"></td><td ID="MedicationDosageDescription_5"></td><td ID="MedicationMedicationId_5">[id number]</td><td ID="MedicationAccount_5">[id number]</td><td ID="MedicationNpid_5">[id number]</td><td ID="MedicationAuthorFirstName_5">Sandra</td><td ID="MedicationAuthorLastName_5">Jimmie</td><td ID="MedicationTaxonomyCode_5">[id number]</td><td ID="MedicationTaxonomyDesc_5">Psychiatric/Mental Health</td><td ID="MedicationPhoneNumber_5">[phone]</td> [facility] ([facility]) Sertraline 100 MG Oral Tablet sertraline 08/23/2020 12:00:00 AM EDT 100 mg by mouth completed <td ID="Medica tionRxNorm_3">[id number]</td><td ID="MedicationMedication_3">sertraline</td><td ID="MedicationRoute_3">by mouth</td><td ID="MedicationRouteConcept_3">[id number]</td><td ID="MedicationStartDate_3">08/23/2020</td><td ID="MedicationStopDate_3"></td><td ID="MedicationDosageFrequency_3">once a day</td><td ID="MedicationDuration_3"></td><td ID="MedicationFormulaStrength_3">100 mg</td><td ID="MedicationDosageForm_3">tablet</td><td ID="MedicationDosageFormCode_3"></td><td ID="MedicationDosageDescription_3"></td><td ID="MedicationMedicationId_3">[id number]</td><td ID="MedicationAccount_3">[id number]</td><td ID="MedicationNpid_3">[id number]</td><td ID="MedicationAuthorFirstName_3">Zurdo</td><td ID="MedicationAuthorLastName_3">Valencia</td><td ID="MedicationTaxonomyCode_3">[id number]</td><td ID="MedicationTaxonomyDesc_3">Nurse Practitioner</td><td ID="MedicationPhoneNumber_3">[phone]</td> [facility] ([facility]) Sertraline 100 MG Oral Tablet sertraline 08/23/2020 12:00:00 AM EDT 100 mg by mouth completed <td ID="Medica tionRxNorm_2">138029</td><td ID="MedicationMedication_2">sertraline</td><td ID="MedicationRoute_2">by mouth</td><td ID="MedicationRouteConcept_2">V23713</td><td ID="MedicationStartDate_2">08/23/2020</td><td ID="MedicationStopDate_2"></td><td ID="MedicationDosageFrequency_2">once a day</td><td ID="MedicationDuration_2"></td><td ID="MedicationFormulaStrength_2">100 mg</td><td ID="MedicationDosageForm_2">tablet</td><td ID="MedicationDosageFormCode_2"></td><td ID="MedicationDosageDescription_2"></td><td ID="MedicationMedicationId_2">[id number]</td><td ID="MedicationAccount_2">[id number]</td><td ID="MedicationNpid_2">[id number]</td><td ID="MedicationAuthorFirstName_2">Zurdo</td><td ID="MedicationAuthorLastName_2">Valencia</td><td ID="MedicationTaxonomyCode_2">[id number]</td><td ID="MedicationTaxonomyDesc_2">Nurse Practitioner</td><td ID="MedicationPhoneNumber_2">[phone]</td> [facility] ([facility]) Mirtazapine 15 MG Oral Tablet mirtazapine 08/23/2020 12:00:00 AM EDT 15 mg by mouth completed <td ID="Medica tionRxNorm_1">983314</td><td ID="MedicationMedication_1">mirtazapine</td><td ID="MedicationRoute_1">by mouth</td><td ID="MedicationRouteConcept_1">M69827</td><td ID="MedicationStartDate_1">08/23/2020</td><td ID="MedicationStopDate_1"></td><td ID="MedicationDosageFrequency_1">every night</td><td ID="MedicationDuration_1"></td><td ID="MedicationFormulaStrength_1">15 mg</td><td ID="MedicationDosageForm_1">tablet</td><td ID="MedicationDosageFormCode_1"></td><td ID="MedicationDosageDescription_1"></td><td ID="MedicationMedicationId_1">[id number]</td><td ID="MedicationAccount_1">[id number]</td><td ID="MedicationNpid_1">[id number]</td><td ID="MedicationAuthorFirstName_1">Zurdo</td><td ID="MedicationAuthorLastName_1">Valencia</td><td ID="MedicationTaxonomyCode_1">[id number]</td><td ID="MedicationTaxonomyDesc_1">Nurse Practitioner</td><td ID="MedicationPhoneNumber_1">[phone]</td> [facility] ([facility]) Mirtazapine 15 MG Oral Tablet mirtazapine 08/23/2020 12:00:00 AM EDT 15 mg by mouth completed <td ID="Medica tionRxNorm_3">408042</td><td ID="MedicationMedication_3">mirtazapine</td><td ID="MedicationRoute_3">by mouth</td><td ID="MedicationRouteConcept_3">Q72737</td><td ID="MedicationStartDate_3">08/23/2020</td><td ID="MedicationStopDate_3"></td><td ID="MedicationDosageFrequency_3">every night</td><td ID="MedicationDuration_3"></td><td ID="MedicationFormulaStrength_3">15 mg</td><td ID="MedicationDosageForm_3">tablet</td><td ID="MedicationDosageFormCode_3"></td><td ID="MedicationDosageDescription_3"></td><td ID="MedicationMedicationId_3">[id number]</td><td ID="MedicationAccount_3">[id number]</td><td ID="MedicationNpid_3">[id number]</td><td ID="MedicationAuthorFirstName_3">Zurdo</td><td ID="MedicationAuthorLastName_3">Valencia</td><td ID="MedicationTaxonomyCode_3">[id number]</td><td ID="MedicationTaxonomyDesc_3">Nurse Practitioner</td><td ID="MedicationPhoneNumber_3">[phone]</td> [facility] ([facility]) buspirone hydrochloride 7.5 MG Oral Tablet buspirone 08/23 12:00:00 AM EDT 7.5 mg by mouth completed <td ID="Medic ationRxNorm_2">042219</td><td ID="MedicationMedication_2">buspirone</td><td ID="MedicationRoute_2">by mouth</td><td ID="MedicationRouteConcept_2">X13860</td><td ID="MedicationStartDate_2">08/23/2020</td><td ID="MedicationStopDate_2"></td><td ID="MedicationDosageFrequency_2">twice a day</td><td ID="MedicationDuration_2"></td><td ID="MedicationFormulaStrength_2">7.5 mg</td><td ID="MedicationDosageForm_2">tablet</td><td ID="MedicationDosageFormCode_2"></td><td ID="MedicationDosageDescription_2"></td><td ID="MedicationMedicationId_2">[id number]</td><td ID="MedicationAccount_2">[id number]</td><td ID="MedicationNpid_2">[id number]</td><td ID="MedicationAuthorFirstName_2">Zurdo</td><td ID="MedicationAuthorLastName_2">Valencia</td><td ID="MedicationTaxonomyCode_2">[id number]</td><td ID="MedicationTaxonomyDesc_2">Nurse Practitioner</td><td ID="MedicationPhoneNumber_2">[phone]</td> [facility] ([facility]) buspirone hydrochloride 7.5 MG Oral Tablet buspirone 08/23 12:00:00 AM EDT 7.5 mg by mouth completed <td ID="Medic ationRxNorm_4">366323</td><td ID="MedicationMedication_4">buspirone</td><td ID="MedicationRoute_4">by mouth</td><td ID="MedicationRouteConcept_4">D68722</td><td ID="MedicationStartDate_4">08/23/2020</td><td ID="MedicationStopDate_4"></td><td ID="MedicationDosageFrequency_4">twice a day</td><td ID="MedicationDuration_4"></td><td ID="MedicationFormulaStrength_4">7.5 mg</td><td ID="MedicationDosageForm_4">tablet</td><td ID="MedicationDosageFormCode_4"></td><td ID="MedicationDosageDescription_4"></td><td ID="MedicationMedicationId_4">[id number]</td><td ID="MedicationAccount_4">[id number]</td><td ID="MedicationNpid_4">[id number]</td><td ID="MedicationAuthorFirstName_4">Zurdo</td><td ID="MedicationAuthorLastName_4">Valencia</td><td ID="MedicationTaxonomyCode_4">[id number]</td><td ID="MedicationTaxonomyDesc_4">Nurse Practitioner</td><td ID="MedicationPhoneNumber_4">[phone]</td> [facility] ([facility]) montelukast 10 MG Oral Tablet MONTELUKAST SODIUM [...] 12:00:00 AM EDT 662 mg/2.4 completed <td ID="MedicationRxNorm_1">0226216</td><td ID="MedicationMedication_1">Aristada</td><td ID="MedicationRoute_1">intramuscularly</td><td ID="MedicationRouteConcept_1"></td><td ID="MedicationStartDate_1">07/31/2020</td><td ID="MedicationStopDate_1"></td><td ID="MedicationDosageFrequency_1">every four weeks</td><td ID="MedicationDuration_1"></td><td ID="MedicationFormulaStrength_1">662 mg/2.4 mL</td><td ID="MedicationDosageForm_1">suspension,extended rel syring</td><td ID="MedicationDosageFormCode_1"></td><td ID="MedicationDosageDescription_1">as directed</td><td ID="MedicationMedicationId_1">[id number]</td><td ID="MedicationAccount_1">[id number]</td><td ID="MedicationNpid_1">[id number]</td><td ID="MedicationAuthorFirstName_1">Naveen</td><td ID="MedicationAuthorLastName_1">Oscar</td><td ID="MedicationTaxonomyCode_1">[id number]</td><td ID="MedicationTaxonomyDesc_1"> Nurse Practitioner</td><td ID="MedicationPhoneNumber_1">[phone]</td> [facility] ([facility]) Nystatin 100 UNT/MG Topical Powder 100,000 unit/gram [...] 12:00:00 AM EDT 662 mg/2.4 completed <td ID="MedicationRxNorm_4">[id number]</td><td ID="MedicationMedication_4">Aristada</td><td ID="MedicationRoute_4">intramuscularly</td><td ID="MedicationRouteConcept_4"></td><td ID="MedicationStartDate_4">07/31/2020</td><td ID="MedicationStopDate_4"></td><td ID="MedicationDosageFrequency_4">every four weeks</td><td ID="MedicationDuration_4"></td><td ID="MedicationFormulaStrength_4">662 mg/2.4 mL</td><td ID="MedicationDosageForm_4">suspension,extended rel syring</td><td ID="MedicationDosageFormCode_4"></td><td ID="MedicationDosageDescription_4">as directed</td><td ID="MedicationMedicationId_4">[id number]</td><td ID="MedicationAccount_4">[id number]</td><td ID="MedicationNpid_4">[id number]</td><td ID="MedicationAuthorFirstName_4">Naveen</td><td ID="MedicationAuthorLastName_4">Oscar</td><td ID="MedicationTaxonomyCode_4">[id number]</td><td ID="MedicationTaxonomyDesc_4"> Nurse Practitioner</td><td ID="MedicationPhoneNumber_4">[phone]</td> [facility] ([facility]) 100 mg 07/31/2020 12:00:00 AM EDT capsule 60 TAKE TWO CAPSULES BY MOUTH EVERY DAY FOR CONSTIPATION TAKE TWO CAPSULES BY MOUTH EVERY DAY FOR CONSTIPATION SOLD: 07/31/2020 [facility] 250 mg 07/31/2020 12:00:00 AM EDT tablet 30 TAKE ONE TABLET BY MOUTH EVERY DAY AT BEDTIME FOR SEIZURES TAKE ONE TABLET BY MOUTH EVERY DAY AT BE [facility] FOR SEIZURES SOLD: 07/31/2020 [facility] [...] 10 mg by mouth completed <td ID="Medica tionRxNorm_4">824183</td><td ID="MedicationMedication_4">aripiprazole</td><td ID="MedicationRoute_4">by mouth</td><td ID="MedicationRouteConcept_4">K11585</td><td ID="MedicationStartDate_4">07/10/2020</td><td ID="MedicationStopDate_4"></td><td ID="MedicationDosageFrequency_4">as directed</td><td ID="MedicationDuration_4"></td><td ID="MedicationFormulaStrength_4">10 mg</td><td ID="MedicationDosageForm_4">tablet</td><td ID="MedicationDosageFormCode_4"></td><td ID="MedicationDosageDescription_4"></td><td ID="MedicationMedicationId_4">[id number]</td><td ID="MedicationAccount_4">[id number]</td><td ID="MedicationNpid_4">[id number]</td><td ID="MedicationAuthorFirstName_4">Sandra</td><td ID="MedicationAuthorLastName_4">Jimmie</td><td ID="MedicationTaxonomyCode_4">[id number]</td><td ID="MedicationTaxonomyDesc_4">Psychiatric/Mental Health</td><td ID="MedicationPhoneNumber_4">[phone]</td> [facility] ([facility]) Sertraline 100 MG Oral Tablet sertraline 02/24/2020 12:00:00 AM EST 100 mg completed <td ID="Medicat ionRxNorm_6">037655</td><td ID="MedicationMedication_6">sertraline</td><td ID="MedicationRoute_6"></td><td ID="MedicationRouteConcept_6"></td><td ID="MedicationStartDate_6">02/24/2020</td><td ID="MedicationStopDate_6">02/24/2020</td><td ID="MedicationDosageFrequency_6"></td><td ID="MedicationDuration_6"></td><td ID="MedicationFormulaStrength_6">100 mg</td><td ID="MedicationDosageForm_6">tablet</td><td ID="MedicationDosageFormCode_6"></td><td ID="MedicationDosageDescription_6"></td><td ID="MedicationMedicationId_6">[id number]</td><td ID="MedicationAccount_6">[id number]</td><td ID="MedicationNpid_6"></td><td ID="MedicationAuthorFirstName_6"></td><td ID="MedicationAuthorLastName_6"></td><td ID="MedicationTaxonomyCode_6"></td><td ID="MedicationTaxonomyDesc_6"></td><td ID="MedicationPhoneNumber_6"></td> [facility] ([facility]) Lorazepam 0.5 MG Oral Tablet lorazepam 02/24/2020 12:00:00 AM EST 0.5 mg by mouth completed <td ID="Medica tionRxNorm_4">309246</td><td ID="MedicationMedication_4">lorazepam</td><td ID="MedicationRoute_4">by mouth</td><td ID="MedicationRouteConcept_4">U87476</td><td ID="MedicationStartDate_4">02/24/2020</td><td ID="MedicationStopDate_4"></td><td ID="MedicationDosageFrequency_4"></td><td ID="MedicationDuration_4"></td><td ID="MedicationFormulaStrength_4">0.5 mg</td><td ID="MedicationDosageForm_4">tablet</td><td ID="MedicationDosageFormCode_4"></td><td ID="MedicationDosageDescription_4">as directed</td><td ID="MedicationMedicationId_4">[id number]</td><td ID="MedicationAccount_4">[id number]</td><td ID="MedicationNpid_4">[id number]</td><td ID="MedicationAuthorFirstName_4">Sandra</td><td ID="MedicationAuthorLastName_4">Jimmie</td><td ID="MedicationTaxonomyCode_4">[id number]</td><td ID="MedicationTaxonomyDesc_4">Psychiatric/Mental Health</td><td ID="MedicationPhoneNumber_4">[phone]</td> [facility] ([facility]) Mirtazapine 15 MG Oral Tablet mirtazapine 02/24/2020 12:00:00 AM EST 15 mg completed <td ID="Medicat ionRxNorm_5">090931</td><td ID="MedicationMedication_5">mirtazapine</td><td ID="MedicationRoute_5"></td><td ID="MedicationRouteConcept_5"></td><td ID="MedicationStartDate_5">02/24/2020</td><td ID="MedicationStopDate_5">02/24/2020</td><td ID="MedicationDosageFrequency_5"></td><td ID="MedicationDuration_5"></td><td ID="MedicationFormulaStrength_5">15 mg</td><td ID="MedicationDosageForm_5">tablet</td><td ID="MedicationDosageFormCode_5"></td><td ID="MedicationDosageDescription_5"></td><td ID="MedicationMedicationId_5">[id number]</td><td ID="MedicationAccount_5">[id number]</td><td ID="MedicationNpid_5"></td><td ID="MedicationAuthorFirstName_5"></td><td ID="MedicationAuthorLastName_5"></td><td ID="MedicationTaxonomyCode_5"></td><td ID="MedicationTaxonomyDesc_5"></td><td ID="MedicationPhoneNumber_5"></td> [facility] ([facility]) Sertraline 50 MG Oral Tablet sertraline 50 mg tablet Take 1 tablet every day by oral route. sertraline 50 mg tablet Take 1 tablet every day by oral route. 1 completed sertraline 50 MG Oral Tablet [facility] ([facility]) Sertraline 25 MG Oral Tablet sertraline 25 mg tablet Take 1 tablet every day by oral route in the morning. sertraline 25 mg tablet Take 1 tablet ev day by oral route in the morning. 1 completed sertraline 25 MG Oral Tablet [facility] ([facility]) Vitamin D3 25 Mcg CAP PO QAM completed Vitamin D3 [facility] ([facility]) Levetiracetam 250 MG Oral Tablet levetiracetam 250 mg tablet levetiracetam 250 mg tablet completed levetiraceta m 250 MG Oral Tablet [facility] ([facility]) Omeprazole 20 MG Delayed Release Oral Ca psule omeprazole 20 mg capsule,delayed release omeprazole 20 mg capsule,delayed release completed omeprazole 20 MG Delayed Release Oral Capsule [facility] ([facility]) Lorazepam 1 MG Oral Tablet lorazepam 1 mg tablet lorazepam 1 mg tablet completed lorazepam 1 MG Oral Table t [facility] ([facility]) Hydroxyzine Pamoate 25 MG Oral Capsule hydroxyzine donnell oate 25 mg capsule hydroxyzine pamoate 25 mg capsule comp leted hydroxyzine pamoate 25 MG Oral Capsule [facility] ([facility]) ferrous sulfate 325 MG Delayed Release O ral Tablet ferrous sulfate 325 mg (65 mg iron) tablet,delayed release ferrous sulfate 325 mg (65 mg iron) tabl et,delayed release completed ferrou s sulfate 325 MG Delayed Release Oral Tablet [facility] ([facility]) Mirtazapine 30 MG Oral Tablet mirtazapine 30 mg tablet saurabh zapine 30 mg tablet completed mirtazapine 30 MG Oral Tablet [facility] ([facility]) Mirtazapine 7.5 MG Oral Tablet mirtazapine 7.5 mg tabl et mirtazapine 7.5 mg tablet completed mirtazapine 7.5 MG Oral Tablet [facility] ([facility]) Escitalopram 20 MG Oral Tablet escitalopram 20 mg tabl et escitalopram 20 mg tablet completed escitalopram 20 MG Oral Tablet [facility] ([facility]) Sertraline 100 MG Oral Tablet sertraline 100 mg tablet sertr maliha 100 mg tablet completed sertraline 100 MG Oral Tablet [facility] ([facility]) Levetiracetam 250 MG Oral Tablet levetiracetam 250 mg tablet levetiracetam 250 mg tablet completed levetiraceta m 250 MG Oral Tablet [facility] ([facility]) vitamin d3 1000 unit caps compl eted vitamin d3 1000 unit caps [facility] ([facility]) Cholecalciferol 2000 UNT Oral Capsule ch olecalciferol (vitamin D3) 50 mcg (2,000 unit) capsule TAKE ONE CAPSULE BY MOUTH @8AM cholecalciferol (vitamin D3) 50 mcg (2,000 unit) capsule TAKE ONE CAPSULE BY MOUTH @8AM completed cholecalciferol 0.05 MG Oral Capsule [facility] ([facility]) Amantadine Hydrochloride 100 MG Oral Capsule amantadin e HCl 100 mg capsule amantadine HCl 100 mg capsule complete d amantadine hydrochloride 100 MG Oral Capsule [facility] ([facility]) Aristada Initio 675 mg/2.4 mL suspension, extend.rel. IM syringe [id number] completed 2.4 ML aripipra zole lauroxil 281.3 MG/ML Prefilled Syringe [Aristada] [facility] ([facility]) buspirone hydrochloride 7.5 MG Oral Tablet buspirone 7 .5 mg tablet buspirone 7.5 mg tablet completed buspirone h ydrochloride 7.5 MG Oral Tablet [facility] ([facility]) Mirtazapine 15 MG Oral Tablet mirtazapin e 15 mg tablet Take 1 tablet every day by oral route. mirtazapine 15 mg tablet Take 1 tablet every day by or al route. 1 completed mirtazapine 15 MG Oral Tablet [facility] ([facility]) Sulfamethoxazole 800 MG / Trimethoprim 1 60 MG Oral Tablet sulfamethoxazole 800 mg-trimethoprim 160 mg tablet sulfamethoxazole 800 mg-trimethoprim 160 mg tablet completed sulfame thoxazole 800 MG / trimethoprim 160 MG Oral Tablet [facility] ([facility]) Hydroxyzine Hydrochloride 50 MG Oral Tab let hydroxyzine HCl 50 mg tablet Take 1 tablet 3 times a day by oral route. hydroxyzine HCl 50 mg tablet Take 1 tabl et 3 times a day by oral route. 1 completed hydroxyzine hydrochloride 50 MG Oral Tablet [facility] ([facility]) ferrous sulfate 325 MG TAB PO TID comple cindi ferrous sulfate [facility]) aripiprazole 10 MG Oral Tablet aripiprazole 10 mg tabl et aripiprazole 10 mg tablet completed aripiprazole 10 MG Oral Tablet [facility]) Aristada 441 mg/1.6 mL suspension, extend.rel. IM syringe [id number] completed 1.6 ML aripiprazole lauroxil 276 MG/ML Prefilled Syringe [Aristada] [facility] ([facility]) Hydroxyzine Hydrochloride 50 MG Oral Tab let hydroxyzine HCl 50 mg tablet Take 1 tablet 3 times a day by oral route. hydroxyzine HCl 50 mg tablet Take 1 tabl et 3 times a day by oral route. 1 completed hydroxyzine hydrochloride 50 MG Oral Tablet [facility] ([facility]) vitamin d3 50 mcg (1999) caps completed vitamin d3 50 mcg (1999) caps [facility] ([facility]) Amantadine Hydrochloride 100 MG Oral Capsule amantadin e HCl 100 mg capsule amantadine HCl 100 mg capsule complete d amantadine hydrochloride 100 MG Oral Capsule [facility] ([facility]) buspirone hydrochloride 7.5 MG Oral Tablet buspirone 7 .5 mg tablet buspirone 7.5 mg tablet completed buspirone h ydrochloride 7.5 MG Oral Tablet [facility] ([facility]) Sulfamethoxazole 800 MG / Trimethoprim 1 60 MG Oral Tablet sulfamethoxazole 800 mg-trimethoprim 160 mg tablet sulfamethoxazole 800 mg-trimethoprim 160 mg tablet completed sulfame thoxazole 800 MG / trimethoprim 160 MG Oral Tablet [facility] ([facility]) Cefuroxime 500 MG Oral Tablet cefuroxime axetil 500 mg tablet cefuroxime axetil 500 mg tablet completed cefuroxi me 500 MG Oral Tablet [facility] ([facility]) Aristada 441 mg/1.6 mL suspension, extend.rel. IM syringe [id number] completed 1.6 ML aripiprazole lauroxil 276 MG/ML Prefilled Syringe [Aristada] [facility] ([facility]) vitamin d3 50 mcg (1999 ut) caps completed vitamin d3 50 mcg (1999 ut) caps [facility] ([facility]) aripiprazole 10 MG Oral Tablet aripiprazole 10 mg tabl et aripiprazole 10 mg tablet completed aripiprazole 10 MG Oral Tablet [facility] ([facility]) Aristada Initio 675 mg/2.4 mL suspension, extend.rel. IM syringe [id number] 6 completed 2.4 ML aripipra zole lauroxil 281.3 MG/ML Prefilled Syringe [Aristada] [facility] ([facility]) Vitamin D3 25 Mcg CAP PO QAM completed Vitamin D3 [facility] ([facility]) Lorazepam 1 MG Oral Tablet lorazepam 1 mg tablet lorazepam 1 mg tablet completed lorazepam 1 MG Oral Table t [facility] ([facility]) ferrous sulfate 325 MG TAB PO TID comple cindi ferrous sulfate [facility] ([facility]) Hydroxyzine Pamoate 25 MG Oral Capsule hydroxyzine donnell oate 25 mg capsule hydroxyzine pamoate 25 mg capsule comp leted hydroxyzine pamoate 25 MG Oral Capsule [facility] ([facility]) Sertraline 50 MG Oral Tablet sertraline 50 mg tablet Take 1 tablet every day by oral route. sertraline 50 mg tablet Take 1 tablet every day by oral route. 1 completed sertraline 50 MG Oral Tablet [facility] ([facility]) Hydroxyzine Hydrochloride 25 MG Oral Tablet hydroxyzin e HCl 25 mg tablet hydroxyzine HCl 25 mg tablet completed hydroxyzine hydrochloride 25 MG Oral Tablet [facility] ([facility]) Cefuroxime 500 MG Oral Tablet cefuroxime axetil 500 mg tablet cefuroxime axetil 500 mg tablet completed cefuroxi me 500 MG Oral Tablet [facility] ([facility]) vitamin d3 1000 unit caps compl eted vitamin d3 1000 unit caps [facility] ([facility]) Sertraline 100 MG Oral Tablet sertraline 100 mg tablet sertr maliha 100 mg tablet completed sertraline 100 MG Oral Tablet [facility] ([facility]) Mirtazapine 30 MG Oral Tablet mirtazapine 30 mg tablet saurabh zapine 30 mg tablet completed mirtazapine 30 MG Oral Tablet [facility] ([facility]) Escitalopram 20 MG Oral Tablet escitalopram 20 mg tabl et escitalopram 20 mg tablet completed escitalopram 20 MG Oral Tablet [facility] ([facility]) Hydroxyzine Hydrochloride 25 MG Oral Tablet hydroxyzin e HCl 25 mg tablet hydroxyzine HCl 25 mg tablet completed hydroxyzine hydrochloride 25 MG Oral Tablet [facility] ([facility]) Sertraline 25 MG Oral Tablet sertraline 25 mg tablet Take 1 tablet every day by oral route in the morning. sertraline 25 mg tablet Take 1 tablet ev gretta day by oral route in the morning. 1 completed sertraline 25 MG Oral Tablet [facility] ([facility]) Insurance Providers Payer name Policy type / Coverage type Policy ID Covered constitution party ID Covered constitution party's relationship to johnson Policy Johnson Plan Information MEDICAID [id number] SP [id number] UNHC COMMUNITY PLAN MCDHMO [id number] SP [id number] BLUE CROSS GRAVES PLAN [id number] SP [id number] BS Klarissa Hmo Blue Option Medigap Part B [id number] [id number] Self [id number] BS K[employer]issa Hmo Blue Option Medigap Part B [id number] ..[id number] Self [id number] BS [place] Hmo Blue Option Medigap Part B [id number] [id number] Self [id number] BS [place]issa Hmo Blue Option Medigap Part B [id number] ..[id number] Self [id number] BS [place]issa Hmo Blue Option Medigap Part B [id number] Self BS [place]issa Hmo Blue Option Medigap Part B [id number] [id number] Self [id number] BS [place] [employer]mo Blue Option Medigap Part B [id number] ..[id number] Self [id number] BS [place]issa [employer]mo Blue Option Medigap Part B [id number] ..[id number] Self [id number] BS [place]issa [employer]mo Blue Option Medigap Part B [id number] 2..[id number] Self [id number] BS [place] [employer] Blue Option Medigap Part B [id number] 2..[id number] Self [id number] BS [place] [employer]mo Blue Option Medigap Part B [id number] 2..[id number] Self [id number] BS Klarissa [employer]mo Blue Option Medigap Part B [id number] 2..[id number] Self [id number] BS K[facility]issa [employer]mo Blue Option Medigap Part B [id number] [id number] Self [id number] [employer] COMMUNITY PLAN MCDHMO [id number] SP [id number] [facility] Community Plan Medigap Part B [id number] Self [id number] [facility] Community Plan Medigap Part B [id number] Self [id number] [facility] Community Plan Medigap Part B [id number] Self [id number] [facility] Community Plan Commercial [id number] Self [facility] Community Plan Medigap Part B [id number] .[id number] Self [id number] [facility] Community Plan Medigap Part B [id number] Self [id number] [facility] Community Plan Medigap Part B [id number] Self [id number] [facility] Community Plan Medigap Part B [id number] Self [id number] [facility] Community Plan Medigap Part B [id number] Self [id number] [facility] Community Plan Medigap Part B [id number] Self [id number] [facility] Community Plan Medigap Part B [id number] Self [id number] [facility] Community Plan Medigap Part B [id number] Self [id number] [facility] Community Plan Medigap Part B [id number] Self [id number] [facility] COMMUNITY PLAN [id number] 18 [id number] [facility] Community Plan Medicaid [id number] Self [id number] [facility] Community Plan Medicaid 1941 Self [facility] COMMUNITY PLAN MCDHMO [id number] SP [id number] [facility] COMMUNITY PLAN MCDHMO [id number] SP [id number] Managed Care - Community Plan [facility] P [id number] S [id number] [facility] Community Plan Commercial [id number] Self [id number] Medicaid S [id number] S [id number] Managed Care - Community Plan [facility] P [id number] S [id number] Medicaid S [id number] S [id number] [place] [id number] Self [id number] Managed Care - [facility] Community Plan P [id number] S [id number] Managed Care - Community Plan [facility] P [id number] S [id number] [facility] I [id number] Self [id number] Medicaid S [id number] S [id number] Managed Care - [facility] Community Plan P [id number] S [id number] Medicaid S [id number] S [id number] [facility] [id number] SP [id number] [facility] COMMUNITY PLAN [facility] [id number] SP [id number] [facility](MCA[facility]) O [id number] S [id number] MEDICAID M [id number] S [id number] [facility] COMMUNITY PLAN [facility] [id number] SP [id number] Managed Care - Community Plan [facility] P [id number] S [id number] Medicaid S [id number] S [id number] [facility] COMMUNITY PLAN [facility] [id number] SP [id number] SELF PAY ONLY [id number] SP [id number] UN COMMUNITY PLAN [facility] [id number] SP [id number] SELF PAY ONLY [id number] SP [id number] [facility] [id number] S [id number] [facility] Health Maintenance Organization (HMO) [id number] Self [id number] [facility] Comm Plan - Medicaid Medicaid [id number] Self [place] [facility] [id number] SP [id number] UN AMERICHOICE XIX [id number] 18 [id number] [facility] Community Plan-Caid Medicaid [id number] Self [facility] [id number] 18 [id number] [facility] [id number] 18 [id number] BLUE CROSS BLUE SHIELD-O/P [id number] 18 [id number] MEDICAID-O/P [id number] 18 [id number] MEDICAID - CLINIC [id number] UN COMMUNITY PLAN [facility] [id number] SP [id number] Problems, Conditions, and Diagnoses Code Display Name Description Problem Type Effective Dates Data Source(s) schizoaffective, SI, paranoid schizoaffective, SI, par anoid Diagnosis 07/10/2020 07:50:00 PM [facility] F41.9 Anxiety disorder, unspecified Unspecified Anxiety Diso rder Condition 01/24/2021 12:00:00 AM EDT [facility] ([facility]) F25.1 Schizoaffective disorder, depressive typ e Schizoaffective Disorder, Depressive type Condition 01/24/2021 12:00:00 AM EDT [facility] ([facility]) E66.8 Obesity Obesity Problem 09/04/2020 12:00:00 AM ED T [facility] ([facility]) [id number] Vitamin D deficiency Vitamin D Deficiency Problem 04/19/2020 12:00:00 AM EST [facility] ([facility]) F32.9 Major depressive disorder, single episod e, unspecified Unspecified depressive Disorder Condition 02/22/2020 12:00:00 AM EST [facility] ([facility]) [id number] Nicotine dependence Nicotine Dependence Problem 1 12:00:00 AM EDT [facility] ([facility]) [id number] Nicotine dependence Nicotine Dependence Problem 1 12:00:00 AM EDT [facility] ([facility]) [id number] Impacted cerumen in right ear Impacted Cerumen in Right Ear Problem 09/29/2019 12:00:00 AM EDT - 02/02/2020 12:00:00 AM ED T [facility] ([facility]) [id number] Patient asked to attend Patient Asked to Attend Proble m 09/29/2019 12:00:00 AM EDT - 02/02/2020 12:00:00 AM EDT [facility] ([facility]) [id number] Tobacco use and exposure - finding Tobacco Use a nd Exposure - Finding Problem 09/29/2019 12:00:00 AM EDT - 02/02/2020 12:00:00 AM ED T [facility] ([facility]) [id number] Nicotine dependence Nicotine Dependence Problem 0 09/29/2019 12:00:00 AM EDT - 02/02/2020 12:00:00 AM EDT [facility] ([facility]) [id number] Impacted cerumen in right ear Impacted Cerumen in Right Ear Problem 09/29/2019 12:00:00 AM EDT - 02/02/2020 12:00:00 AM ED T [facility] ([facility]) [id number] Patient asked to attend Patient Asked to Attend Proble m 09/29/2019 12:00:00 AM EDT - 02/02/2020 12:00:00 AM EDT [facility] ([facility]) [id number] Tobacco use and exposure - finding Tobacco Use a nd Exposure - Finding Problem 09/29/2019 12:00:00 AM EDT - 02/02/2020 12:00:00 AM ED Mary HARPER ([facility]) [id number] Nicotine dependence Nicotine Dependence Problem 0 09/29/2019 12:00:00 AM EDT - 02/02/2020 12:00:00 AM EDT [facility] ([facility]) [id number] Clinical finding Clinical Finding Problem 020 12:00:00 AM EDT - 03/29/2020 12:00:00 AM EST [facility] ([facility]) [id number] Anesthesia of skin Anesthesia of Skin Problem 12:00:00 AM EDT - 02/02/2020 12:00:00 AM EDT [facility] ([facility]) [id number] Anesthesia of skin Anesthesia of Skin Problem 12:00:00 AM EDT - 02/02/2020 12:00:00 AM EDT [facility] ([facility]) [id number] Clinical finding Clinical Finding Problem 019 12:00:00 AM EST - 02/02/2020 12:00:00 AM EDT [facility] ([facility]) [id number] Clinical finding Clinical Finding Problem 019 12:00:00 AM EST - 02/02/2020 12:00:00 AM EDT [facility] ([facility]) [id number] Breast neoplasm screening status Breast Neoplasm Screening Status Problem 11/11/2018 12:00:00 AM EDT - 04/19/2020 12:00:00 AM ES Mary HARPER ([facility]) [id number] Electrocardiogram abnormal Electrocardiogram Abnormal Problem 11/11/2018 12:00:00 AM EDT - 04/19/2020 12:00:00 AM SEAN HARPER ([facility]) [id number] Dizziness and giddiness Dizziness and Giddiness Proble 11/11/2018 12:00:00 AM EDT - 02/02/2020 12:00:00 AM EDT [facility] ([facility]) [id number] Dizziness and giddiness Dizziness and Giddiness Proble 11/11/2018 12:00:00 AM EDT - 02/02/2020 12:00:00 AM EDT [facility] ([facility]) [id number] Dysuria Dysuria Problem 04/02/2018 12:0 0:00 AM EST - 02/02/2020 12:00:00 AM EDT [facility] ([facility]) [id number] Urinary tract infectious disease Urinary Tract I nfectious Disease Problem 04/02/2018 12:00:00 AM EST - 02/02/2020 12:00:00 AM ED T [facility] ([facility]) [id number] Dysuria Dysuria Problem 04/02/2018 12:0 0:00 AM EST - 02/02/2020 12:00:00 AM EDT [facility] ([facility]) [id number] Urinary tract infectious disease Urinary Tract I nfectious Disease Problem 04/02/2018 12:00:00 AM EST - 02/02/2020 12:00:00 AM ED T [facility] ([facility]) [id number] Influenza vaccine needed Influenza Vaccine Needed Pro blem 03/13/2018 12:00:00 AM EST - 02/02/2020 12:00:00 AM EDT [facility] ([facility]) [id number] Influenza vaccine needed Influenza Vaccine Needed Pro blem 03/13/2018 12:00:00 AM EST - 02/02/2020 12:00:00 AM EDT [facility] ([facility]) [id number] Screening for malignant neoplasm of cerv ix Screening for Malignant Neoplasm of Cervix Problem 09/29/2017 12:00:00 AM EDT - 02/02/2020 12:00:00 AM EDT [facility] ([facility]) [id number] Screening for malignant neoplasm of cerv ix Screening for Malignant Neoplasm of Cervix Problem 09/29/2017 12:00:00 AM EDT - 02/02/2020 12:00:00 AM EDT [facility] ([facility]) [id number] Enterovirus enteritis Enterovirus Enteritis Problem 09/09/2017 12:00:00 AM EDT - 02/02/2020 12:00:00 AM EDT [facility] ([facility]) [id number] Enterovirus enteritis Enterovirus Enteritis Problem 09/09/2017 12:00:00 AM EDT - 02/02/2020 12:00:00 AM EDT [facility] ([facility]) [id number] Influenza vaccination status Influenza Vaccination Sta tus Problem 03/11/2017 12:00:00 AM EST - 02/02/2020 12:00:00 AM EDT [facility] ([facility]) [id number] Foot pain Foot Pain Problem 03/11/2017 12:0 0:00 AM EST - 02/02/2020 12:00:00 AM EDT [facility] ([facility]) [id number] Influenza vaccination status Influenza Vaccination Sta tus Problem 03/11/2017 12:00:00 AM EST - 02/02/2020 12:00:00 AM EDT [facility] ([facility]) [id number] Foot pain Foot Pain Problem 03/11/2017 12:0 0:00 AM EST - 02/02/2020 12:00:00 AM EDT [facility] ([facility]) [id number] Procedure by method Procedure by Method Problem 0 01/03/2017 12:00:00 AM EDT - 02/02/2020 12:00:00 AM EDT [facility] ([facility]) [id number] Fitting procedure Fitting Procedure Problem 01/03 12:00:00 AM EDT - 02/02/2020 12:00:00 AM EDT [facility] ([facility]) [id number] Procedure by method Procedure by Method Problem 0 01/03/2017 12:00:00 AM EDT - 02/02/2020 12:00:00 AM EDT [facility] ([facility]) [id number] Fitting procedure Fitting Procedure Problem 01/03 12:00:00 AM EDT - 02/02/2020 12:00:00 AM EDT [facility] ([facility]) Surgeries/Procedures Procedure Description Date Indications Data Source(s) THERAPEUTIC PROPHYLACTIC/DX INJECTION SUBQ/IM 01/24/2021 12:00:00 AM EDT - 01/24/2021 12:00:00 AM EDT [facility] ([facility]) THERAPEUTIC PROPHYLACTIC/DX INJECTION SUBQ/IM 01/25/20 12:00:00 AM EDT [facility] ([facility]) Brief Individual Psychotherapy - 30 min 01/10/2021 12:00:00 AM EDT - 01/10/2021 12:00:00 AM EDT [facility] ([facility]) Brief Individual Psychotherapy - 30 min 01/10/2021 12: 00:00 AM EDT [facility] ([facility]) Comprehensive medication services, per 15 minutes 12/25/2020 12:00:00 AM EDT - 12/25/2020 12:00:00 AM EDT [facility] ([facility]) Comprehensive medication services, per 15 minutes 12/25/2020 12:00:00 AM EDT [facility] ([facility]) Comprehensive medication services, per 15 minutes 11/27/2020 12:00:00 AM EDT - 11/27/2020 12:00:00 AM EDT [facility] ([facility]) Comprehensive medication services, per 15 minutes 11/27/2020 12:00:00 AM EDT [facility] ([facility]) Brief Individual Psychotherapy - 30 min 11/21/2020 12:00:00 AM EDT - 11/21/2020 12:00:00 AM EDT [facility] ([facility]) Brief Individual Psychotherapy - 30 min 11/21/2020 12: 00:00 AM EDT [facility] ([facility]) Brief Individual Psychotherapy - 30 min 10/26/2020 12:00:00 AM EDT - 10/26/2020 12:00:00 AM EDT [facility] ([facility]) Brief Individual Psychotherapy - 30 min 10/26/2020 12: 00:00 AM EDT [facility] ([facility]) Comprehensive medication services, per 15 minutes 10/26/2020 12:00:00 AM EDT - 10/26/2020 12:00:00 AM EDT [facility] ([facility]) Comprehensive medication services, per 15 minutes 10/26/2020 12:00:00 AM EDT [facility] ([facility]) Comprehensive medication services, per 15 minutes 09/29/2020 12:00:00 AM EDT - 09/29/2020 12:00:00 AM EDT [facility] ([facility]) Comprehensive medication services, per 15 minutes 09/29/2020 12:00:00 AM EDT [facility] ([facility]) ECG ROUTINE ECG W/LEAST 12 LDS W/I&R 09/04/2020 12:00: 00 AM EDT [facility] ([facility]) Comprehensive medication services, per 15 minutes 09/01/2020 12:00:00 AM EDT - 09/01/2020 12:00:00 AM EDT [facility] ([facility]) Comprehensive medication services, per 15 minutes 09/01/2020 12:00:00 AM EDT [facility] ([facility]) Comprehensive medication services, per 15 minutes 08/03/2020 12:00:00 AM EDT - 08/03/2020 12:00:00 AM EDT [facility] ([facility]) Comprehensive medication services, per 15 minutes 08/03/2020 12:00:00 AM EDT [facility] ([facility]) Extended Individual Psychotherapy - 45 min 08/03/2020 12:00:00 AM EDT - 08/03/2020 12:00:00 AM EDT [facility] ([facility]) Extended Individual Psychotherapy - 45 min 12:00:00 AM EDT [facility] ([facility]) Brief Individual Psychotherapy - 30 min 07/10/2020 12:00:00 AM EDT - 07/10/2020 12:00:00 AM EDT [facility] ([facility]) Brief Individual Psychotherapy - 30 min 07/10/2020 12: 00:00 AM EDT [facility] ([facility]) THERAPEUTIC PROPHYLACTIC/DX INJECTION SUBQ/IM 07/10/2020 12:00:00 AM EDT - 07/10/2020 12:00:00 AM EDT [facility] ([facility]) THERAPEUTIC PROPHYLACTIC/DX INJECTION SUBQ/IM 07/11/19 12:00:00 AM EDT [facility] ([facility]) THERAPEUTIC PROPHYLACTIC/DX INJECTION SUBQ/IM 06/29/2020 12:00:00 AM EDT - 06/29/2020 12:00:00 AM EDT [facility] ([facility]) THERAPEUTIC PROPHYLACTIC/DX INJECTION SUBQ/IM 06/29/19 12:00:00 AM EDT [facility] ([facility]) MHC Telemed E/M Lvl 3--Est pt 05/31/2020 12:00:00 AM EST - 05/31/2020 12:00:00 AM EST [facility] ([facility]) MHC Telemed E/M Lvl 3--Est pt 05/31/2020 12:00:[address] [facility] ([facility]) THERAPEUTIC PROPHYLACTIC/DX INJECTION SUBQ/IM 05/31/2020 12:00:00 AM EST - 05/31/2020 12:00:00 AM EST [facility] ([facility]) THERAPEUTIC PROPHYLACTIC/DX INJECTION SUBQ/IM 05/31/19 12:00:00 AM EST [facility] ([facility]) MHC Telemed E/M Lvl 3--Est pt 05/25/2020 12:00:00 AM EST - 05/25/2020 12:00:00 AM EST [facility] ([facility]) MHC Telemed E/M Lvl 3--Est pt 05/25/2020 12:00:[address] [facility] ([facility]) Extended Individual Psychotherapy - 45 min 05/19/2020 12:00:00 AM EST - 05/19/2020 12:00:00 AM EST [facility] ([facility]) Extended Individual Psychotherapy - 45 min 12:00:00 AM EST [facility] ([facility]) Extended Individual Psychotherapy - 45 min 05/09/2020 12:00:00 AM EST - 05/09/2020 12:00:00 AM EST [facility] ([facility]) Extended Individual Psychotherapy - 45 min 12:00:00 AM EST [facility] ([facility]) Comprehensive medication services, per 15 minutes 05/04/2020 12:00:00 AM EST - 05/04/2020 12:00:00 AM EST [facility] ([facility]) Comprehensive medication services, per 15 minutes 05/04/2020 12:00:00 AM EST [facility] ([facility]) MHC Telemed E/M Lvl 3--Est pt 05/04/2020 12:00:00 AM EST - 05/04/2020 12:00:00 AM EST [facility] ([facility]) MHC Telemed E/M Lvl 3--Est pt 05/04/2020 12:00:[address] [facility] ([facility]) THERAPEUTIC PROPHYLACTIC/DX INJECTION SUBQ/IM 05/01/2020 12:00:00 AM EST - 05/01/2020 12:00:00 AM EST [facility] ([facility]) THERAPEUTIC PROPHYLACTIC/DX INJECTION SUBQ/IM 05/01/19 12:00:00 AM EST [facility] ([facility]) Extended Individual Psychotherapy - 45 min 04/24/2020 12:00:00 AM EST - 04/24/2020 12:00:00 AM EST [facility] ([facility]) Extended Individual Psychotherapy - 45 min 12:00:00 AM EST [facility] ([facility]) MHC Telemed E/M Lvl 3--Est pt 04/20/2020 12:00:00 AM EST - 04/20/2020 12:00:00 AM EST [facility] ([facility]) MHC Telemed E/M Lvl 3--Est pt 04/20/2020 12:00:[address] [facility] ([facility]) Telemed A/O 30" 04/20/2020 12:00:00 AM EST [facility] ([facility]) OFFICE OUTPATIENT VISIT 15 MINUTES 04/20/2020 12:00:00 AM EST [facility] ([facility]) THERAPEUTIC PROPHYLACTIC/DX INJECTION SUBQ/IM 04/03/2020 12:00:00 AM EST - 04/03/2020 12:00:00 AM EST [facility] ([facility]) THERAPEUTIC PROPHYLACTIC/DX INJECTION SUBQ/IM 04/03/20 20 12:00:00 AM EST [facility] ([facility]) THERAPEUTIC PROPHYLACTIC/DX INJECTION SUBQ/IM 03/31/2020 12:00:00 AM EST - 03/31/2020 12:00:00 AM EST [facility] ([facility]) THERAPEUTIC PROPHYLACTIC/DX INJECTION SUBQ/IM 03/31/20 20 12:00:00 AM EST [facility] ([facility]) OFFICE OUTPATIENT VISIT 15 MINUTES 03/29 12:00:00 AM EST - 03/29/2020 12:00:00 AM EST [facility] ([facility]) OFFICE OUTPATIENT VISIT 15 MINUTES 03/29/2020 12:00:00 AM EST [facility] ([facility]) Extended Individual Psychotherapy - 45 min 03/21/2020 12:00:00 AM EST - 03/21/2020 12:00:00 AM EST [facility] ([facility]) Extended Individual Psychotherapy - 45 min 0 12:00:00 AM EST [facility] ([facility]) OFFICE OUTPATIENT VISIT 15 MINUTES 02/23 12:00:00 AM EST - 02/24/2020 12:00:00 AM EST [facility] ([facility]) Psychotherapy ADD ON - 30 Minutes 02/24/2020 12:00:00 AM EST [facility] ([facility]) OFFICE OUTPATIENT VISIT 15 MINUTES 02/24/2020 12:00:00 AM EST [facility] ([facility]) TEMPMHCTelemed 30" Psychotherapy 12:00:00 AM EST - 02/22/2020 12:00:00 AM EST [facility] ([facility]) TEMPMHCTelemed 30" Psychotherapy 02/22/2020 12:00:00 A M EST [facility] ([facility]) TEMPMHCTelemed 30" Psychotherapy 12:00:00 AM EDT - 01/27/2020 12:00:00 AM EDT [facility] ([facility]) TEMPMHCTelemed 30" Psychotherapy 01/27/2020 12:00:00 A M EDT [facility] ([facility]) MHC Telemed E/M Lvl 3--Est pt 01/24/2020 12:00:00 AM EDT - 01/24/2020 12:00:00 AM EDT [facility] ([facility]) MHC Telemed E/M Lvl 3--Est pt 01/24/2020 12:00:00 AM E DT [facility] ([facility]) OFFICE OUTPATIENT NEW 30 MINUTES 12:00:00 AM EDT - 01/03/2020 12:00:00 AM EDT [facility] ([facility]) OFFICE OUTPATIENT NEW 30 MINUTES 01/03/2020 12:00:00 A M EDT [facility] ([facility]) Comprehensive medication services, per 15 minutes 01/03/2020 12:00:00 AM EDT - 01/03/2020 12:00:00 AM EDT [facility] ([facility]) Comprehensive medication services, per 15 minutes 01/03/2020 12:00:00 AM EDT [facility] ([facility]) Comprehensive medication services, per 15 minutes 12/31/2019 12:00:00 AM EDT - 12/31/2019 12:00:00 AM EDT [facility] ([facility]) Comprehensive medication services, per 15 minutes 12/31/2019 12:00:00 AM EDT [facility] ([facility]) Comprehensive medication services, per 15 minutes 12/30/2019 12:00:00 AM EDT - 12/30/2019 12:00:00 AM EDT [facility] ([facility]) Comprehensive medication services, per 15 minutes 12/30/2019 12:00:00 AM EDT [facility] ([facility]) MHC Telemed E/M Lvl 3--Est pt 12/22/2019 12:00:00 AM EDT - 12/22/2019 12:00:00 AM EDT [facility] ([facility]) MHC Telemed E/M Lvl 3--Est pt 12/22/2019 12:00:00 AM E DT [facility] ([facility]) Results ID Date Data Source [id number] 09/08/2020 09:36:00 AM EDT [facility] Name Value Range Interpretation Code Description Data Mitra rce(s) Supporting Document(s) Magnesium [Mass/volume] in Serum or Plasma 2.4 mg/dL 1.8-2.4 [facility] ([facility]) ID Date Data Source [id number] 09/08/2020 09:36:00 AM EDT [facility] Name Value Range Interpretation Code Description Data Mitra rce(s) Supporting Document(s) Blood Urea Nitrogen 11 mg/dL 7-18 [facility] ([facility]) Glucose, Fasting 86 mg/dL 70-100 [facility] ([facility]) Creatinine For GFR 0.85 mg/dL 0.55-1.30 [facility] ([facility]) Glomerular Filtration Rate Laboratory test result [facility] ([facility]) <content>Units are mL/min/1.73 m2</content>
<content></content>
<content>Chronic Kidney Disease Staging per NKF:</content>
<content></content>
<content>Stage I & II GFR >=60 Normal to Mildly Decreased</content>
<content>Stage III GFR 30- 59 Moderately Decreased</content>
<content>Stage IV GFR 15-29 Severely Decreased</content>
<content>Stage V GFR <15 Very Little GFR Left</content>
<content>ESRD GFR <15 on STILL PUMP OPERATOR</content>
<content></content> Potassium Serum 4.6 meq/L 3.5-5.1 [facility] ([facility]) Sodium Level 139 meq/L 136-145 [facility] ([facility]) Carbon Dioxide Level 30 meq/L 21-32 [facility] ([facility]) Chloride Level 106 meq/L 98-107 [facility] ([facility]) Calcium Level 9.1 mg/dL 8.8-10.2 [facility] ([facility]) Anion Gap 3 meq/L 8-16 [facility] ([facility]) Ast/Sgot 13 U/L 7-37 [facility] ([facility]) Alkaline Phosphatase 142 U/L 45-117 [facility] ([facility]) Alt/SGPT 16 U/L 12-78 [facility] ([facility]) Total Protein 7.7 GM/DL 6.4-8.2 [facility] ([facility]) Bilirubin,Total 0.2 mg/dL 0.2-1.0 [facility] ([facility]) Albumin 3.6 GM/DL 3.2-5.2 [facility] ([facility] Albumin/Globulin Ratio 0.9 1.2-2.2 [facility] ([facility]) ID Date Data Source [id number] 07/10/2020 08:17:00 PM EDT [facility] Name Value Range Interpretation Code Description Data Mitra rce(s) Supporting Document(s) SARS coronavirus 2 RNA [Presence] in Res piratory specimen by MICKIE with probe detection NEGATIVE [facility] This lab was ordered by [facility] a nd reported by [facility]. ID Date Data Source [id number] 07/10/2020 07:51:55 PM EDT [facility] Name Value Range Interpretation Code Description Data Mitra rce(s) Supporting Document(s) Progress Note [facility] [id number] lbm [file] AgICAgICAgICAgICAgICAgICAgICAgICAgICAgICAg ICAgICAgICAgICAgICAgICAgICAgICAgICAgICAgICAgICAgICANCiAgICAgICAgICAgICAgICAgICAg ICAgICAgICAgICAgICAgICAgICAgICAgICAgICAgICAgICAgICAgICAgICAgICAgICAgICAgICAgICAg ICAgICAgICAgICAgICAgICAgICANCiAgICAgICAgIC AgICAgICAgICAgICAgICAgICAgICAgICAgICAgICAgICAgICAgICAgICAgICAgICAgICAgICAgICAgIC AgICAgICAgICAgICAgICAgICAgICAgICAgICAgICANCiAgICAgICAgICAgICAgICAgICAgICAgICAgIC AgICAgICAgICAgICAgICAgICAgICAgICAgICAgICAg ICAgICAgICAgICAgICAgICAgICAgICAgICAgICAgICAgICAgICAgICANCiAgICAgICAgICAgICAgICAg ICAgICAgICAgICAgICAgICAgICAgICAgICAgICAgICAgICAgICAgICAgICAgICAgICAgICAgICAgICAg ICAgICAgICAgICAgICAgICAgICAgICANCiAgICAgIC AgICAgICAgICAgICAgICAgICAgICAgICAgICAgICAgICAgICAgICAgICAgICAgICAgICAgICAgICAgIC AgICAgICAgICAgICAgICAgICAgICAgICAgICAgICAgICANCiAgICAgICAgICAgICAgICAgICAgICAgIC AgICAgICAgICAgICAgICAgICAgICAgICAgICAgICAg ICAgICAgICAgICAgICAgICAgICAgICAgICAgICAgICAgICAgICAgICAgICANCiAgICAgICAgICAgICAg ICAgICAgICAgICAgICAgICAgICAgICAgICAgICAgICAgICAgICAgICAgICAgICAgICAgICAgICAgICAg ICAgICAgICAgICAgICAgICAgICAgICAgICANCiAgIC AgICAgICAgICAgICAgICAgICAgICAgICAgICAgICAgICAgICAgICAgICAgICAgICAgICAgICAgICAgIC AgICAgICAgICAgICAgICAgICAgICAgICAgICAgICAgICAgICANCiAgICAgICAgICAgICAgICAgICAgIC AgICAgICAgICAgICAgICAgICAgICAgICAgICAgICAg ICAgICAgICAgICAgICAgICAgICAgICAgICAgICAgICAgICAgICAgICAgICAgICANCjw/nIBwH1hzfNDd ukS6D0kbMh1JUf1VZC7kz0AyDZZiKZebbuGyJivEPgEkJGRqStxWLdf3KCloJZ1HeFRnT5SbI4RiHUqr XH0USFJfJCFskWTiHTUnUOCkGmV2AXLeFCopDV9BaO UbEHgjKNPlDTRyWC4QQLDoO791siAfLT8TIc3XPdEmQN1byp7KVMDbJTYcDvyGTeq2ZQvbUO0OvXVnbG UvZHYvLYHVZlRrB6ewv0MiGVEnORRHBUvuYA9Mk7KgpLIdBIo+Oa1ATA5wj2ErKFwnPZZfNI1pcv4COW cRWfPbD8BshRvbYWFng5esWKUsEC6kvXLhZHS1FMRl OGL9APMbhEs5I2btGLjsLn5pYCUhLo6fDV6uRRHfEPM6RyWaBYFWQC7EBBFcRQMkwBYyKPNmTUSKLT9T WFfyJIT0FIBstbVwnIZqQQzuUR4BNHQtsiSwVIMyAZAQCKs+Vv2YCM4wj4PgZUffCrDmKV3dhj7RTUoE JfKxL2F2gUBoH8B7TZyfGb0PKNYoQYIkDZGkBPDFXP exCY4ZQN8nlgO8FH2VsDOePHLoREKeyAMuPPs2N37xsYNtIAnoVI9HIRJ+Ketan+Hq1ETKDsKPAbCGOnYi GgJUMNRwIwJ3IlL5FBi1PfW7IgNV01sTgpfvCwOZmtWB0ZGM4hBNKnHKAJFB5ScZLslG3zgmHtHKOwTE ISCcRaE38pzPWiMOOsGFOfIXPcFv6GKSPcS4KdotXw lQbcxhAqQDJkTVQSWX4TEVfwezCktGVdfFetIR89zPbdRS3NRv9ZDfFqPP0otp2CrFDsLv2OITEwZo3K UTYpWYLjHFXaYRT7KMIrIgVfESitGMUiSMMnRJG2OFCuRSKhWR9DGwIiHUGvIZG8AaEoKMTsBWGrap2Y UGTnUAHlMqA2TSCfAPXqHZOsVLvwVBVbMDQoJLS4SE BhNGRjHH4HEkEuSWHlEAV7FjIbGKFvURCkfc8BEAHqKFXoXySdTWYgOHJnBPLpHHkyBSFcBCZbDSk5OZ LdFHFnEE4DRrDrHTUoFSAzNGDpIYSoMBNedm7ZITLsCSDgXuY1KhFtBDDxYZMgQHrhYUSfOXG0KfKoRS ArKLWjEK1PVwOaFYHuJEX9DbCzCDRwTAXvjb1LZVJf OMQlTTeeZPYzHMSgDELhHVpbWWLdMDP8YXB7NKUgYGIpTS3FWlVaVKLsHGP5CVLcIWFpXASxiv6HPGCq GMOyDpBwKgDbNBMpDYVxJPbeJIIcQXG8JfqmPDFhENQzME1JNcDwDKvaJZAAMqj2QBnjR5u1TAIoCa4C A7Qva7TeHDGmAXQVKMpoYY9yaxOpOZNrCx8HA1eZXz l1ZFDhSXT3SJC6JfI0PRS8VzK5BSeiKnMbYxDrNmMvQH6sMUWcOETwHAnmXtVzPMY3IvXfCpC5DZKuWr BgYwYuFRJaAlZeUJ5WXw3HDoI5LSC9sZLdCp7BOcUjCx7ZWGDXQ8BQBf== ID Date Data Source [id number] 07/10/2020 01:37:00 PM EDT [facility] Name Value Range Interpretation Code Description Data Mitra rce(s) Supporting Document(s) Thyroid Stimulating Hormone 0.919 ME DENT ([facility]) ID Date Data Source [id number] 07/10/2020 01:37:00 PM EDT [facility] Name Value Range Interpretation Code Description Data Mitra rce(s) Supporting Document(s) Sodium 138 [facility] Calcium [Mass/volume] in Serum or Plasma 9.3 MED[facility] ([facility]) Carbon dioxide, total [Moles/volume] in Serum or Plasma 27 MEDENT ([facility]) Chloride [Moles/volume] in Serum or Plasma 105 MEDENT ([facility]) Potassium [Moles/volume] in Serum or Plasma 3.7 MEDENT ([facility]) Blood Urea Nitrogen 10 7-18 MEDENT ([facility]) Glucose 104 70-100 MEDENT ([facility]iology [facility]) Glomerular filtration rate/1.73 sq M.pre dicted [Volume Rate/Area] in Serum or Plasma by Creatinine-based formula (MDRD) Laboratory test result MEDENT ([facility]) Creatinine 0.90 0.55-1.30 MED[facility] ([facility]) ID Date Data Source [id number] 07/10/2020 01:37:00 PM EDT [facility] Name Value Range Interpretation Code Description Data Mitra rce(s) Supporting Document(s) Red Blood Count 4.59 4.00-5.40 MEDENT ([facility]io [facility]) White Blood Count 13.6 4.0-10.0 MEDENT ([facility]) Hematocrit 39.0 36.0-47.0 [facility] ([facility]) Platelets 401 150-450 MEDENT ([facility]) Hemoglobin 12.4 12.0-15.5 MEDENT ([facility]) ID Date Data Source [id number] 02/02/2020 12:15:00 PM EDT MEREDITH ([facility]) Name Value Range Interpretation Code Description Data Mitra rce(s) Supporting Document(s) ferritin 48 NG/mL 8-252 Ferritin [facility] ([facility]) ID Date Data Source [id number] 02/02/2020 12:15:00 PM EDT MEREDITH ([facility]) Name Value Range Interpretation Code Description Data Mitra rce(s) Supporting Document(s) total 25(oh) vitamin D 34.2 NG/mL 30.0-100.0 Total 25(Oh) Vitamin D MEREDITH ([facility]) ID Date Data Source [id number] 02/02/2020 12:15:00 PM EDT MEREDITH ([facility]) Name Value Range Interpretation Code Description Data Mitra rce(s) Supporting Document(s) folate > 24.0 Folate [facility] ([facility]) vitamin B12 level 448 pg/mL Vitamin B12 Level [facility]ITH ([facility]) ID Date Data Source [id number] 02/02/2020 12:15:00 PM EDT MEREDITH ([facility]) Name Value Range Interpretation Code Description Data Mitra rce(s) Supporting Document(s) thyroid stimulating hormone 1.050 uIU/mL 0.358-3.740 Thyroid Stimulating Hormone MEREDITH ([facility]) ID Date Data Source [id number] 02/02/2020 12:15:00 PM EDT [facility]) Name Value Range Interpretation Code Description Data Mitra rce(s) Supporting Document(s) total iron binding capacity 331 ug/dL 250-450 Total Ir on Binding Capacity MEREDITH ([facility]) percent saturation 16.6 % 13.2-45.0 Percent Saturatio n MEREDITH ([facility]) iron (fe) 55 ug/dL 50-170 Iron (Fe) [facility]ITH ([facility]) ID Date Data Source [id number] 02/02/2020 12:15:00 PM EDT MEREDITH ([facility]) Name Value Range Interpretation Code Description Data Mitra rce(s) Supporting Document(s) triglycerides level 138 mg/dL <150 Triglycerides Le luis MEREDITH ([facility]) Cholesterol in LDL [Mass/volume] in Serum or Plasma 98 mg/dL <1 00 LDL Cholesterol MER[facility]ITH ([facility]) HDL cholesterol 60 mg/dL >40 HDL Cholesterol ATHE NA ([facility]) non-HDL-C 126 mg/dL Non-hdl-c [facility] ([facility]) cholesterol level 186 mg/dL <200 Cholesterol Level MEREDITH ([facility]) cholesterol risk ratio <5 Cholesterol R isk Ratio [facility]ITH ([facility]) ID Date Data Source [id number] 02/02/2020 12:15:00 PM EDT MEREDITH ([facility]) Name Value Range Interpretation Code Description Data Mitra rce(s) Supporting Document(s) Hemoglobin A1c/Hemoglobin.total in Blood 5.4 % Hemoglobin a1C MER[facility] ([facility]) estimated average glucose 108 mg/dL 60-110 Estimated Average Glucose [facility] ([facility]) ID Date Data Source [id number] 02/02/2020 12:15:00 PM EDT MEREDITH ([facility]) Name Value Range Interpretation Code Description Data Mitra rce(s) Supporting Document(s) hemoglobin 14.0 g/dL 12.0-15.5 Hemoglobin MER[facility] ([facility]) red blood count 4.85 10 4.00-5.40 Red Blood Count ATHE NA ([facility]) white blood count 10.5 10 4.0-10.0 Above high normal White Blood Count MEREDITH ([facility]) mean corpuscular hemoglobin 28.9 pg 27.0-33.0 Mean Cor puscular Hemoglobin [facility] ([facility]) hematocrit 42.5 % 36.0-47.0 Hematocrit MER[facility] ([facility]) mean corpuscular volume 87.6 fL 80.0-96.0 Mean Corpusc ular Volume MER[facility]ITH ([facility]) mean corpuscular HGB conc 32.9 g/dL 32.0-36.5 Mean Corpu scular HGB Conc [facility] ([facility]) mono % 6.5 % 0.0-5.0 Above high normal Cottle % MEREDITH ([facility]) red cell distribution width 12.4 % 11.5-14.5 Red Cell Distribution Width MER[facility] ([facility]) platelet count, automated 172 10 150-450 Platelet C ount, Automated MER[facility]ITH ([facility]) neutrophils % 64.4 % 36.0-66.0 Neutrophils % MEREDITH ( [facility]) lymph % 28.6 % 24.0-44.0 Lymph % [facility] ([facility]) immature granulocyte % 0.3 % 0-3.0 Immature Gran ulocyte % [facility] ([facility]) nucleated red blood cell % 0.0 % 0-0 Nucleated Red Blood Cell % [facility]ITH ([facility]) eos % 0.0 % 0.0-3.0 Eos % [facility] ([facility]) baso % 0.2 % 0.0-1.0 Baso % [facility] ([facility]) baso # 0.0 10 0.0-0.2 Baso # [facility] ([facility]) lymph # 3.0 10 1.5-5.0 Lymph # [facility]ITH ([facility]) neutrophils # 6.7 10 1.5-8.5 Neutrophils # MEREDITH ( [facility]) mono # 0.7 10 0.0-0.8 Cottle # [facility] ([facility]) eos # 0.0 10 0.0-0.5 Eos # [facility] ([facility]) ID Date Data Source [id number] 02/02/2020 09:23:00 AM EDT MED[facility] ([facility]) Name Value Range Interpretation Code Description Data Mitra rce(s) Supporting Document(s) Iron 55 50-170 MED[facility] ([facility]) Iron binding capacity [Mass/volume] in Serum or Plasma 331 MED[facility] ([facility]) Tibc % Saturation 16.6 MED[facility] ([facility]) ID Date Data Source [id number] 02/02/2020 09:23:00 AM EDT MEDENT ([facility]) Name Value Range Interpretation Code Description Data Mitra rce(s) Supporting Document(s) Cholesterol 186 [facility] ([facility]) Triglycerides 138 MEDENT ([facility]) Cholesterol in LDL [Mass/volume] in Serum or Plasma by calculation 98 [facility] ([facility]) HDL 60 MED[facility] ([facility]) Chol/HDL Ratio 3.100 MED[facility] ([facility]) ID Date Data Source [id number] 02/02/2020 09:23:00 AM EDT MEDENT ([facility]) Name Value Range Interpretation Code Description Data Mitra rce(s) Supporting Document(s) Red Blood Count 4.85 4.00-5.40 MED[facility] ([facility]) White Blood Count 10.5 4.0-10.0 MED[facility] ([facility]) Hemoglobin 14.0 12.0-15.5 MED[facility] ([facility]) Platelets 172 150-450 MED[facility] ([facility]) Hematocrit 42.5 36.0-47.0 [facility] ([facility]) ID Date Data Source [id number] 02/02/2020 09:23:00 AM EDT MEDENT ([facility]) Name Value Range Interpretation Code Description Data Mitra rce(s) Supporting Document(s) Hemoglobin A1c/Hemoglobin.total in Blood 5.4 MED[facility] ([facility]) Procedure Social History Code Duration Value Status Description Data Source(s ) Smoking 01/24/2021 12:00:00 AM EDT Unknown if ever smoked comp leted Unknown if ever smoked [facility] ([facility]) Smoking 01/10/2021 12:00:00 AM EDT Unknown if ever smoked comp leted Unknown if ever smoked [facility] ([facility]) Smoking 12/25/2020 12:00:00 AM EDT Unknown if ever smoked comp leted Unknown if ever smoked [facility] ([facility]) Smoking 11/27/2020 12:00:00 AM EDT Unknown if ever smoked comp leted Unknown if ever smoked [facility] ([facility]) Smoking 11/21/2020 12:00:00 AM EDT Unknown if ever smoked comp leted Unknown if ever smoked [facility] ([facility]) Smoking 10/26/2020 12:00:00 AM EDT Unknown if ever smoked comp leted Unknown if ever smoked [facility] ([facility]) Smoking 09/29/2020 12:00:00 AM EDT Unknown if ever smoked comp leted Unknown if ever smoked [facility] ([facility]) Smoking 09/04/2020 12:00:00 AM EDT Patient is a former smoker completed Patient is a former smoker MED[facility] ([facility]) Smoking 09/01/2020 12:00:00 AM EDT Unknown if ever smoked comp leted Unknown if ever smoked [facility] ([facility]) Smoking 08/03/2020 12:00:00 AM EDT Unknown if ever smoked comp leted Unknown if ever smoked [facility] ([facility]) Smoking 07/10/2020 12:00:00 AM EDT Unknown if ever smoked comp leted Unknown if ever smoked [facility] ([facility]) Smoking 06/29/2020 12:00:00 AM EDT Unknown if ever smoked comp leted Unknown if ever smoked [facility] ([facility]) Smoking 05/31/2020 12:00:00 AM EST Unknown if ever smoked comp leted Unknown if ever smoked [facility] ([facility]) Smoking 05/25/2020 12:00:00 AM EST Unknown if ever smoked comp leted Unknown if ever smoked [facility] ([facility]) Smoking 05/19/2020 12:00:00 AM EST Unknown if ever smoked comp leted Unknown if ever smoked [facility] ([facility]) Smoking 05/09/2020 12:00:00 AM EST Unknown if ever smoked comp leted Unknown if ever smoked [facility] ([facility]) Smoking 05/04/2020 12:00:00 AM EST Unknown if ever smoked comp leted Unknown if ever smoked [facility] ([facility]) Smoking 05/01/2020 12:00:00 AM EST Unknown if ever smoked comp leted Unknown if ever smoked [facility] ([facility]) Smoking 04/24/2020 12:00:00 AM EST Unknown if ever smoked comp leted Unknown if ever smoked [facility] ([facility]) Smoking 04/20/2020 12:00:00 AM EST Unknown if ever smoked comp leted Unknown if ever smoked [facility] ([facility]) Smoking 04/03/2020 12:00:00 AM EST Unknown if ever smoked comp leted Unknown if ever smoked [facility] ([facility]) Smoking 03/31/2020 12:00:00 AM EST Unknown if ever smoked comp leted Unknown if ever smoked [facility] ([facility]) Smoking 03/29/2020 12:00:00 AM EST Unknown if ever smoked comp leted Unknown if ever smoked [facility] ([facility]) Smoking 03/21/2020 12:00:00 AM EST Unknown if ever smoked comp leted Unknown if ever smoked [facility] ([facility]) Smoking 02/24/2020 12:00:00 AM EST Unknown if ever smoked comp leted Unknown if ever smoked [facility] ([facility]) Smoking 02/22/2020 12:00:00 AM EST Unknown if ever smoked comp leted Unknown if ever smoked [facility] ([facility]) Smoking 01/27/2020 12:00:00 AM EDT Unknown if ever smoked comp leted Unknown if ever smoked [facility] ([facility]) Smoking 01/24/2020 12:00:00 AM EDT Unknown if ever smoked comp leted Unknown if ever smoked [facility] ([facility]) Smoking 01/03/2020 12:00:00 AM EDT Unknown if ever smoked comp leted Unknown if ever smoked [facility] ([facility]) Smoking 12/31/2019 12:00:00 AM EDT Unknown if ever smoked comp leted Unknown if ever smoked [facility] ([facility]) Smoking 12/30/2019 12:00:00 AM EDT Unknown if ever smoked comp leted Unknown if ever smoked [facility] ([facility]) Smoking 12/22/2019 12:00:00 AM EDT Unknown if ever smoked comp leted Unknown if ever smoked [facility] ([facility]) Vital Signs ID Date Data Source [id number] Name Value Range Interpretation Code Description Data Source(s) Systolic blood pressure--standing 112 mm[Hg] 11 2 mm[Hg] [facility] ([facility]) Ra, large cuff Diastolic blood pressure--standing 74 mm[Hg] 7 4 mm[Hg] MED[facility] ([facility]) Ra, large cuff Systolic blood pressure--supine 120 mm[Hg] 120 mm[Hg] [facility] ([facility]) Ra, large cuff Diastolic blood pressure--supine 78 mm[Hg] 78 mm[Hg] [facility] ([facility]) Ra, large cuff Body weight 199.00 [lb_av] 199.00 [lb_av] MEDEN T ([facility]) Body height 68 [in_i] 68 [in_i] [facility] ([facility]) 5'8" Body mass index (BMI) [Ratio] 30.3 kg/m2 30.3 k g/m2 MED[facility] ([facility]) Heart rate 66 /min 66 /min [facility] ([facility]) Diastolic blood pressure--sitting 74 mm[Hg] 74 mm[Hg] [facility] ([facility]) Ra, large cuff Systolic blood pressure--sitting 116 mm[Hg] 116 mm[Hg] [facility] ([facility]) Ra, large cuff Diastolic blood pressure 0 mm[Hg] Normal (applies to non-numeric results) 0 mm[Hg] [facility] ([facility]) Body height 0.00 in Normal (applies to non-numeric resu lts) 0.00 in [facility] ([facility]) Body weight Measured 0.00 lbs Normal (applies to n on-numeric results) 0.00 lbs [facility] ([facility]) Body mass index (BMI) [Ratio] 0.00 kg/m2 No rmal (applies to non-numeric results) 0.00 kg/m2 [facility] ([facility]) Systolic blood pressure 0 mm[Hg] Normal (applies t o non-numeric results) 0 mm[Hg] [facility] ([facility]) Body height 0.00 in Normal (applies to non-numeric resu lts) 0.00 in [facility] ([facility]) Body weight Measured 0.00 lbs Normal (applies to n on-numeric results) 0.00 lbs [facility] ([facility]) Body mass index (BMI) [Ratio] 0.00 kg/m2 No rmal (applies to non-numeric results) 0.00 [facility] Systolic blood pressure 0 mm[Hg] Normal (applies t o non-numeric results) 0 mm[Hg] [facility] Diastolic blood pressure 0 mm[Hg] Normal (applies to non-numeric results) 0 mm[Hg] [facility] ([facility]) Body height 68 [in_i] 68 [in_i] MURRIETA ([facility]) Body height 0.00 in Normal (applies to non-numeric resu lts) 0.00 in [facility] ([facility]) Body weight Measured 0.00 lbs Normal (applies to n on-numeric results) 0.00 lbs [facility] ([facility]) Body mass index (BMI) [Ratio] 0.00 kg/m2 No rmal (applies to non-numeric results) 0.00 kg/m2 [facility] ([facility]) Systolic blood pressure 0 mm[Hg] Normal (applies t o non-numeric results) 0 mm[Hg] [facility] Diastolic blood pressure 0 mm[Hg] Normal (applies to non-numeric results) 0 mm[Hg] [facility] Diastolic blood pressure 83 mm[Hg] 83 mm[Hg] MEREDITH ([facility]) Body height 68 [in_i] 68 [in_i] [facility]ITH ([facility]) Body mass index (BMI) [Ratio] 31 kg/m2 31 kg/ m2 [facility] ([facility]) Systolic blood pressure 125 mm[Hg] 125 mm[Hg] [facility] ([facility]) Body weight 3264 [oz_av] 3264 [oz_av] [facility]ITH ([facility]) Diastolic blood pressure 83 mm[Hg] 83 mm[Hg] [facility]EDITH ([facility]) Body height 68 [in_i] 68 [in_i] [facility]ITH ([facility]) Body mass index (BMI) [Ratio] 31 kg/m2 31 kg/ m2 [facility] ([facility]) Systolic blood pressure 125 mm[Hg] 125 mm[Hg] A THENA ([facility]) Body weight 3264 [oz_av] 3264 [oz_av] [facility]ITH ([facility]) Body height 0.00 in Normal (applies to non-numeric resu lts) 0.00 [facility] Body weight Measured 0.00 lbs Normal (applies to n on-numeric results) 0.00 lbs [facility] ([facility]) Body mass index (BMI) [Ratio] 0.00 kg/m2 No rmal (applies to non-numeric results) 0.00 kg/m2 [facility] Systolic blood pressure 0 mm[Hg] Normal (applies t o non-numeric results) 0 mm[Hg] [facility] ([facility]) Diastolic blood pressure 0 mm[Hg] Normal (applies to non-numeric results) 0 mm[Hg] [facility] ([facility]) ID Date Data Source [id number] 07/10/2020 07:51:55 PM EDT [facility] Name Value Range Interpretation Code Description Data Source(s) TRANSFER FROM [facility] Patient Treatment Plan of Care Planned Activity Planned Date Details Description Data Source (s) vitamin d3 50 mcg (1999) caps MEREDITH ([facility]) vitamin d3 1000 unit caps A THENA ([facility]) Vitamin D3 25 Mcg CAP PO QAM MER[facility]ITH ([facility]) Sulfamethoxazole 800 MG / Trimethoprim 160 MG Oral Tablet MEREDITH ([facility]) Sertraline 50 MG Oral Tablet [facility] ([facility]) Sertraline 25 MG Oral Tablet [facility] ([facility]) Sertraline 100 MG Oral Tablet [facility] ([facility]) Omeprazole 20 MG Delayed Release Oral Capsule [facility] ([facility]) Mirtazapine 7.5 MG Oral Tablet [facility] ([facility]) Mirtazapine 30 MG Oral Tablet [facility] ([facility]) Mirtazapine 15 MG Oral Tablet [facility] ([facility]) Lorazepam 1 MG Oral Tablet A THENA ([facility]) Levetiracetam 250 MG Oral Tablet MEREDITH ([facility]) Hydroxyzine Pamoate 25 MG Oral Capsule MEREDITH ([facility]) Hydroxyzine Hydrochloride 50 MG Oral Tablet [facility]EDITH ([facility]) Hydroxyzine Hydrochloride 25 MG Oral Tablet [facility]ITH ([facility]) ferrous sulfate 325 MG TAB PO TID [facility] [facility] Escitalopram 20 MG Oral Tablet [facility] ([facility]) Cholecalciferol 2000 UNT Oral Capsule [facility] ([facility]) Cefuroxime 500 MG Oral Tablet [facility] ([facility]) buspirone hydrochloride 7.5 MG Oral Tablet [facility] ([facility]) Aristada Initio 675 mg/2.4 mL suspension, extend.rel. IM syringe [facility] ([facility]) Aristada 441 mg/1.6 mL suspension, extend.rel. IM syringe [facility] ([facility]) aripiprazole 10 MG Oral Tablet [facility] ([facility]) Amantadine Hydrochloride 100 MG Oral Capsule [facility] ([facility]) vitamin d3 50 mcg (2000 ut) caps [facility] ([facility]) vitamin d3 1000 unit caps A [facility] ([facility]) Vitamin D3 25 Mcg CAP PO QAM [facility] ([facility]) Sulfamethoxazole 800 MG / Trimethoprim 160 MG Oral Tablet [facility] ([facility]) Sertraline 50 MG Oral Tablet [facility] ([facility]) Sertraline 25 MG Oral Tablet [facility] ([facility]) Sertraline 100 MG Oral Tablet [facility] ([facility] Mirtazapine 30 MG Oral Tablet [facility] ([facility]) Lorazepam 1 MG Oral Tablet [facility] ([facility]) Levetiracetam 250 MG Oral Tablet [facility] ([facility]) Hydroxyzine Pamoate 25 MG Oral Capsule [facility] ([facility]) Hydroxyzine Hydrochloride 50 MG Oral Tablet [facility] ([facility]) Hydroxyzine Hydrochloride 25 MG Oral Tablet [facility] ([facility]) ferrous sulfate 325 MG Delayed Release Oral Tablet [facility] ([facility]) ferrous sulfate 325 MG TAB PO TID [facility] ([facility]) Escitalopram 20 MG Oral Tablet [facility] ([facility]) Cefuroxime 500 MG Oral Tablet [facility] ([facility]) buspirone hydrochloride 7.5 MG Oral Tablet [facility] ([facility]) Aristada Initio 675 mg/2.4 mL suspension, extend.rel. IM syringe [facility] ([facility]) Aristada 441 mg/1.6 mL suspension, extend.rel. IM syringe [facility] ([facility]) aripiprazole 10 MG Oral Tablet [facility] ([facility]) Amantadine Hydrochloride 100 MG Oral Capsule [facility] ([facility])
[2021-02-14 18:42] LABS: HEMATOCRIT 40.3 % (36.0-47.0); HEMOGLOBIN 13.3 g/dl (12.0-15.5); MEAN CORPUSCULAR HEMOGLOBIN 28.5 pg (27.0-33.0); MEAN CORPUSCULAR VOLUME 86.3 fl (80.0-96.0); PLATELET COUNT, AUTOMATED 289 10^3/uL (150-450); RED BLOOD COUNT 4.67 10^6/uL (4.00-5.40); WHITE BLOOD COUNT 10.1 10^3/uL (4.0-10.0)
[2021-02-14 19:17] LABS: AMPHETAMINES LEVEL URINE NEGATIVE (NEGATIVE); BARBITURATES URINE NEGATIVE (NEGATIVE); BENZODIAZEPINES URINE NEGATIVE (NEGATIVE); CANNABINOIDS URINE POSITIVE (NEGATIVE); COCAINE METABOLITE URINE NEGATIVE (NEGATIVE); METHADONE URINE NEGATIVE (NEGATIVE); OPIATES URINE NEGATIVE (NEGATIVE); PHENCYCLIDINE URINE NEGATIVE (NEGATIVE)
[2021-02-14 19:18] LABS: ACETAMINOPHEN LEVEL < 2.0 UG/ML (10.0-30.0); ALBUMIN 3.5 GM/DL (3.2-5.2); ALT/SGPT 23 U/L (12-78); BILIRUBIN,DIRECT < 0.1 MG/DL (0.0-0.2); BILIRUBIN,TOTAL 0.2 MG/DL (0.2-1.0); BLOOD UREA NITROGEN 14 MG/DL (7-18); CALCIUM LEVEL 9.3 MG/DL (8.8-10.2); CARBON DIOXIDE LEVEL 28 MEQ/L (21-32); CHLORIDE LEVEL 104 MEQ/L (98-107); CREATININE FOR GFR 0.73 MG/DL (0.55-1.30); ETHYL ALCOHOL (ETHANOL) < 0.003 % (0.000-0.010); GLOMERULAR FILTRATION RATE > 60.0 (>45); GLUCOSE, FASTING 102 MG/DL (70-100); POTASSIUM SERUM 3.8 MEQ/L (3.5-5.1); SALICYLATE LEVEL 1.7 MG/DL (5.0-30.0); SODIUM LEVEL 137 MEQ/L (136-145); TOTAL PROTEIN 7.3 GM/DL (6.4-8.2)
--- NOTE | 2021-02-14 21:20 | REPVR ---
PROCEDURE INFORMATION: Exam: XR Chest Exam date and time: 02/14/2021 8:02 PM Age: 60 years old Clinical indication: Other: Body aches; Additional info: Body aches, myalgias, and cough TECHNIQUE: Imaging protocol: XR of the chest. Views: 1 view. COMPARISON: CR Chest, 1 view 09/05/2016 9:23 AM FINDINGS: Lungs: Unremarkable. No consolidation. Pleural spaces: Unremarkable. No pleural effusion. No pneumothorax. Heart/Mediastinum: Unremarkable. No cardiomegaly. Bones/joints: Unremarkable. IMPRESSION: No acute radiographic findings. Electronically signed by: Pablo Jarquin On 02/14/2021 21:19:58 PM
[2021-02-14 23:44] LABS: RSV AMPLIFICATION NEGATIVE (NEGATIVE)
[2021-02-14 23:50] VITALS: BP 124/74
== END 2021-02-15 00:13 | disposition home or self-care (01) ==
LOC: M ED 16:19
DX: F32.9 Major depressive disorder, single episode, unspecified (principal); Z63.0 Problems in relationship with spouse or partner; F20.9 Schizophrenia, unspecified; R56.9 Unspecified convulsions; K21.9 Gastro-esophageal reflux disease without esophagitis; Z79.899 Other long term (current) drug therapy

== ENCOUNTER 2021-02-21 13:36 | Emergency (ER) | payer OTHER ==
[~2021-02-21] VITALS: Ht 172.7 cm; Wt 89.0 kg
--- OUTSIDE RECORDS SUMMARY | 2021-02-21 13:43 | CCD ---
Author Author [facility] Organization [facility] Address Unknown Phone Unavailable Care Team Providers Care Assistant Professor In Family Studies Name Role Phone Simon Travisley COMBATANT DIVER QUALIFIED COMBATANT DIVER QUALIFIED Unavailable Unavailable Burak, Alejandra COMBATANT DIVER QUALIFIED COMBATANT DIVER QUALIFIED Unavailable Unavailable Catherine Tejada Unavailable Do Iyer Unavailable Burak, A Alejandra COMBATANT DIVER QUALIFIED Unavailable Unavailable Burak, A Alejandra COMBATANT DIVER QUALIFIED Unavailable Unavailable Burak, A Alejandra COMBATANT DIVER QUALIFIED Unavailable Unavailable Burak, A Alejandra COMBATANT DIVER QUALIFIED Unavailable Unavailable Burak, A Alejandra COMBATANT DIVER QUALIFIED Unavailable Unavailable Burak, A Alejandra COMBATANT DIVER QUALIFIED Unavailable Unavailable Burak, A Alejandra COMBATANT DIVER QUALIFIED Unavailable Unavailable Burak, A Alejandra COMBATANT DIVER QUALIFIED Unavailable Unavailable Burak, A Alejandra COMBATANT DIVER QUALIFIED Unavailable Unavailable Burak, A Alejandra COMBATANT DIVER QUALIFIED Unavailable Unavailable Burak, A Alejandra COMBATANT DIVER QUALIFIED Unavailable Unavailable Burak, A Alejandra COMBATANT DIVER QUALIFIED Unavailable Unavailable Burak, A Alejandra COMBATANT DIVER QUALIFIED Unavailable Unavailable Marion, A Alejandra COMBATANT DIVER QUALIFIED Unavailable Unavailable Marion, A Alejandra COMBATANT DIVER QUALIFIED Unavailable Unavailable Marion, A Alejandra COMBATANT DIVER QUALIFIED Unavailable Unavailable Marion, A Alejandra COMBATANT DIVER QUALIFIED Unavailable Unavailable Marion, A Alejandra COMBATANT DIVER QUALIFIED Unavailable Unavailable Marion, A Alejandra COMBATANT DIVER QUALIFIED Unavailable Unavailable Marion, A Alejandra COMBATANT DIVER QUALIFIED Unavailable Unavailable Marion, A Alejandra COMBATANT DIVER QUALIFIED Unavailable Unavailable Marion, A Alejandra COMBATANT DIVER QUALIFIED Unavailable Unavailable Marion, A Alejandra COMBATANT DIVER QUALIFIED Unavailable Unavailable Marion, A Alejandra COMBATANT DIVER QUALIFIED Unavailable Unavailable Marion, A Alejandra COMBATANT DIVER QUALIFIED Unavailable Unavailable Marion, A Alejandra COMBATANT DIVER QUALIFIED Unavailable Unavailable Marion, A Alejandra COMBATANT DIVER QUALIFIED Unavailable Unavailable Marion, A Alejandra COMBATANT DIVER QUALIFIED Unavailable Unavailable Marion, A Alejandra COMBATANT DIVER QUALIFIED Unavailable Unavailable Marion, A Alejandra COMBATANT DIVER QUALIFIED Unavailable Unavailable Burak, A Alejandra COMBATANT DIVER QUALIFIED Unavailable Unavailable Scordo, M Hillary PA Unavailable [...] , ORGANIZATION NPI Unavailable Unavailable MACQUEEN, REGINA TISSUE REWINDER Unavailable Unavailable MACQUEEN, REGINA TISSUE REWINDER Unavailable Unavailable MACQUEEN, REGINA TISSUE REWINDER Unavailable Unavailable MACQUEEN, REGINA TISSUE REWINDER Unavailable Unavailable MACQUEEN, REGINA TISSUE REWINDER Unavailable Unavailable MACQUEEN, REGINA TISSUE REWINDER Unavailable Unavailable MACQUEEN, REGINA TISSUE REWINDER Unavailable Unavailable MACQUEEN, REGINA TISSUE REWINDER Unavailable Unavailable MACQUEEN, REGINA TISSUE REWINDER Unavailable Unavailable MACQUEEN, REGINA TISSUE REWINDER Unavailable Unavailable SYSTEM, NOT IN PROVIDER Unavailable Unavailable [place], K Sandra PMH-TISSUE REWINDER Unavailable Unavailable [place], K Sandra PMH-TISSUE REWINDER Unavailable Unavailable [place], K Sandra PMH-TISSUE REWINDER Unavailable Unavailable Jimmie, K Sandra PMH-TISSUE REWINDER Unavailable Unavailable Jimmie, K Sandra PMH-TISSUE REWINDER Unavailable Unavailable [place], K Sandra PMH-TISSUE REWINDER Unavailable Unavailable Jimmie, K Sandra PMH-TISSUE REWINDER Unavailable Unavailable Jimmie, K Sandra PMH-TISSUE REWINDER Unavailable Unavailable Travis, F Gemma COMBATANT DIVER QUALIFIED-BC Unavailable Unavailable Travis, F Gemma COMBATANT DIVER QUALIFIED-BC Unavailable Unavailable Travis, F Gemma COMBATANT DIVER QUALIFIED-BC Unavailable Unavailable Travis, F Gemma COMBATANT DIVER QUALIFIED-BC Unavailable Unavailable Travis, F Gemma COMBATANT DIVER QUALIFIED-BC Unavailable Unavailable Travis, F Gemma COMBATANT DIVER QUALIFIED-BC Unavailable Unavailable Travis, F Gemma COMBATANT DIVER QUALIFIED-BC Unavailable Unavailable Travis, F Gemma COMBATANT DIVER QUALIFIED-BC Unavailable Unavailable Travis, F Gemma COMBATANT DIVER QUALIFIED-BC Unavailable Unavailable Travis, F Gemma COMBATANT DIVER QUALIFIED-BC Unavailable Unavailable Travis, F Gemma COMBATANT DIVER QUALIFIED-BC Unavailable Unavailable Travis, F Gemma COMBATANT DIVER QUALIFIED-BC Unavailable Unavailable Travis, F Gemma COMBATANT DIVER QUALIFIED-BC Unavailable Unavailable Travis, F Gemma COMBATANT DIVER QUALIFIED-BC Unavailable Unavailable Travis, F Gemma COMBATANT DIVER QUALIFIED-BC Unavailable Unavailable Travis, F Gemma COMBATANT DIVER QUALIFIED-BC Unavailable Unavailable Travis, F Gemma COMBATANT DIVER QUALIFIED-BC Unavailable Unavailable Travis, F Gemma COMBATANT DIVER QUALIFIED-BC Unavailable Unavailable Travis, F Gemma COMBATANT DIVER QUALIFIED-BC Unavailable Unavailable Travis, F Gemma COMBATANT DIVER QUALIFIED-BC Unavailable Unavailable Travis, F Gemma COMBATANT DIVER QUALIFIED-BC Unavailable Unavailable Thaddeus, Dixon Menendez COMBATANT DIVER QUALIFIED-BC Unavailable Unavailable Dixon Travis COMBATANT DIVER QUALIFIED-BC Unavailable Unavailable Re-disclosure Warning The records that [...] is protected by Article 27-F of the [facility] Public Health law. If you continue you may have access to information: Regarding HIV / AIDS; Provided by facilities licensed or operated by the [facility] Office of Mental Health; or Provided by the [facility] Office for People With Developmental Disabilities. If such information is present, then the following [facility] mandated warning applies: This information has been [...] law may result in a fine or assisted sentence or both. A general authorization for the release of medical or other information is NOT sufficient authorization for further disc losure. Allergies and Adverse Reactions Type Description Substance Reaction Status Data Source(s ) Propensity to adverse reactions to substance amantadine hcl Amantadine Hydrochloride 100 MG Oral Capsule Active [facility] ([facility]) Family History Family Member Name Family Member Gender Family Member Status Date o f Status Description Data Source(s) Unknown Unknown Problem [facility] ([facility], ) 1 BROTHER Encounters Encounter Providers Location Date Indications Data Source(s ) Injectable Psychotropic Medication Administration (Inj ection Only) Attender: Xena Arambula [facility] 01/24/2021 02:30:00 AM EDT - 01/24/2021 02:30:00 AM EDT [facility] ([facility]) Attender: Xena Arambula 01/24/2021 12:00:00 AM EDT [facility] ([facility]) Brief Individual Psychotherapy - 30 min Attender: Do madrid [facility] 01/10/2021 12:30:00 PM EDT - 01/10/2021 12:30:00 PM EDT [facility] ([facility]) Attender: Do Iyer 01/10/2021 12:00:00 AM EDT [facility] ([facility]) Injectable Medication Administration w/ Monitoring & E ducation Attender: [facility] 12/25/2020 11:00:00 AM EDT - 12/25/2020 11:00:00 AM EDT [facility] ([facility]) Attender: Yohana Rahman 12/25/2020 12:00:00 AM EDT [facility] ([facility]) Injectable Medication Administration w/ Monitoring & E ducation [facility] 11/27/2020 11:30:00 AM EDT - 11/27/2020 11:30:00 AM EDT [facility] ([facility]) Attender: Yohana Rahman 11/27/2020 12:00:00 AM EDT [facility] ([facility]) Brief Individual Psychotherapy - 30 min Attender: Catherine mendes [facility] 11/21/2020 10:00:00 AM EDT - 11/21/2020 10:00:00 AM EDT [facility] ([facility]) Attender: Catherine Tejada 11/21/2020 12:00:0 0 AM EDT [facility] ([facility]) Injectable Medication Administration w/ Monitoring & E ducation [facility]: [facility] 10/26/2020 11:30:00 AM EDT - 10/26/2020 11:30:00 AM EDT [facility] ([facility]) Brief Individual Psychotherapy - 30 min Attender: Catherine mendes [facility] 10/26/2020 11:15:00 AM EDT - 10/26/2020 11:15:00 AM EDT [facility] ([facility]) Attender: Catherine Tejada 10/26/2020 12:00:0 0 AM EDT [facility] ([facility]) Attender: Yohana Rahman 10/26/2020 12:00:00 AM EDT [facility] ([facility]) Injectable Medication Administration w/ Monitoring & E ducation Attender: [facility] 09/29/2020 01:00:00 AM EDT - 09/29/2020 01:00:00 AM EDT [facility] ([facility]) Attender: Yohana Daleania 09/29/2020 12:00:00 AM EDT [facility] ([facility]) Outpatient Attender: ALEJANDRA CROOKS PA Main Office 09/04/2020 0 1:00:00 PM EDT [facility] ([facility]) Injectable Medication Administration w/ Monitoring & E ducation Attender: [facility] 09/01/2020 02:00:00 AM EDT - 09/01/2020 02:00:00 AM EDT [facility] ([facility]) Attender: Yohana Daleania 09/01/2020 12:00:00 AM EDT [facility] ([facility]) Injectable Medication Administration w/ Monitoring & E ducation Attender: [facility] 08/03/2020 03:00:00 AM EDT - 08/03/2020 03:00:00 AM EDT [facility] ([facility]) Extended Individual Psychotherapy - 45 min [facility] 08/03/2020 02:00:00 AM EDT - 08/03/2020 02:00:00 AM EDT [facility] ([facility]) Attender: Yohana Rahman 08/03/2020 12:00:00 AM EDT [facility] ([facility]) Attender: Catherine Tejada 08/03/2020 12:00:0 0 AM EDT [facility] ([facility]) Outpatient Referrer: PROVIDER SYSTEM [address] [place] [address] 07/10/2020 07:5 0:00 PM EDT schizoaffective, SI, paranoid [facility] schizoaffective, SI, paranoid Injectable Psychotropic Medication Administration (Inj ection Only) Attender: Xena Arambula [facility] 07/10/2020 02:00:00 AM EDT - 07/10/2020 02:00:00 AM EDT [facility] ([facility]) Brief Individual Psychotherapy - 30 min Attender: Catherine mendes [facility] 07/10/2020 01:30:00 AM EDT - 07/10/2020 01:30:00 AM EDT [facility] ([facility]) Attender: Catherine Tejada 07/10/2020 12:00:0 0 AM EDT [facility] ([facility]) Attender: Xena Arambula 07/10/2020 12:00:00 AM EDT [facility] ([facility]) Attender: Acacia William 06/29/2020 12:00:00 AM EDT [facility] ([facility]) Injectable Psychotropic Medication Administration (Inj ection Only) Attender: Acacia SantiagoRaul [facility] 06/28/2020 01:00:00 AM EDT - 06/28/2020 01:00:00 AM EDT [facility] ([facility]) Injectable Psychotropic Medication Administration (Inj ection Only) Attender: Acacia William [facility] 05/31/2020 09:30:00 AM EST - 05/31/2020 09:30:00 AM EST [facility] ([facility]) Outpatient Attender: Sandra Samuel [facility] 05/31/2020 08:45:00 AM EST - 05/31/2020 08:45:00 AM EST [facility] ([facility]) Attender: Sandra WEIRCYNTHIA 05/31/2020 12: 00:00 AM EST [facility] ([facility]) Attender: Acacia William 05/31/2020 12:00:00 AM EST [facility] ([facility]) Outpatient Att[facility]: Sandra [facility] 05/25/2020 11:00:00 AM EST - 05/25/2020 11:00:00 AM EST [facility] ([facility]) Attender: Sandra WEIRCYNTHIA 05/25/2020 12: 00:00 AM EST [facility] ([facility]) Extended Individual Psychotherapy - 45 min Att[facility]: [facility] 05/19/2020 01:45:00 AM EST - 05/19/2020 01:45:00 AM EST [facility] ([facility]) Attender: Catherine Tejada 05/19/2020 12:00:0 0 AM EST [facility] ([facility]) Extended Individual Psychotherapy - 45 min Attender: Lorraine muller [facility] 05/09/2020 10:45:00 AM EST - 05/09/2020 10:45:00 AM EST [facility] ([facility]) Attender: Catherine Tejada 05/09/2020 12:00:0 0 AM EST [facility] ([facility]) Injectable Medication Administration w/ Monitoring & E ducation Attender: ORGANIZATION NPI ALIASES [facility] 05/04/2020 09:00: 00 AM EST - 05/04/2020 09:00:00 AM EST [facility] ([facility]) Outpatient Attender: REGINA PITTMAN NP [facility] rosalva 05/04/2020 03:00:00 AM EST - 05/04/2020 03:00:00 AM EST [facility] ([facility]) Attender: ORGANIZATION NPI ALIASES * 05/04/2020 12:00:00 AM EST [facility] ([facility]) Attender: REGINA PITTMAN NP 05/04/2020 12:00:00 AM EST [facility] ([facility]) Injectable Psychotropic Medication Administration (Inj ection Only) Attender: ORGANIZATION NPI ALIASES [facility] 05/01/2020 09:00: 00 AM EST - 05/01/2020 09:00:00 AM EST [facility] ([facility]) Attender: ORGANIZATION NPI ALIASES * 05/01/2020 12:00:00 AM EST [facility] ([facility]) Extended Individual Psychotherapy - 45 min [facility] 11:30:00 AM EST - 04/24/2020 11:30:00 AM EST [facility] ([facility]) Attender: Catherine Tejada 04/24/2020 12:00:0 0 AM EST [facility] ([facility]) Outpatient Att[facility]: Sandra Samuel [facility] 04/20/2020 09:00:00 AM EST - 04/20/2020 09:00:00 AM EST [facility] ([facility]) Outpatient Attender: Sandra WEIRCYNTHIA [facility] 04/20/2020 09:00:00 AM EST - 04/20/2020 09:00:00 AM EST [facility] ([facility]) Attender: Sandra HANNA 04/20/2020 12: 00:00 AM EST [facility] ([facility]) Hillary Jarrett PA-C: [address] [place] [phone], Ph. Attender: Hillary COY ID - [facility] Medical 04/19/2020 12:00:00 AM EST [facility] ([facility]) Injectable Psychotropic Medication Administration (Inj ection Only) [facility] 04/03/2020 11:30:00 AM EST - 04/03/2020 11:30:00 AM EST [facility] ([facility]) [facility]: [facility]ena [facility] 04/03/2020 12:00:00 AM EST [facility] ([facility]) Injectable Psychotropic Medication Administration (Inj ection Only) [facility] 03/31/2020 10:00:00 AM EST - 03/31/2020 10:00:00 AM EST [facility] ([facility]) [facility]: [facility]ena [facility] 03/31/2020 12:00:00 AM EST [facility] ([facility]) Outpatient Attender: Sandra Samuel [facility] 03/29/2020 09:30:00 AM EST - 03/29/2020 09:30:00 AM EST [facility] ([facility]) Attender: Sandra Samuel [facility] 03/29/2020 12: 00:00 AM EST [facility] ([facility]) Extended Individual Psychotherapy - 45 min Attender: Lorraine Tejada [facility] 03/21/2020 10:45:00 AM EST - 03/21/2020 10:45:00 AM EST [facility] ([facility]) Attender: Catherine Tejada 03/21/2020 12:00:0 0 AM EST [facility] ([facility]) Outpatient Attender: Sandra Samuel [facility] 02/24/2020 11:30:00 AM EST - 02/24/2020 11:30:00 AM EST [facility] ([facility]) Attender: Sandra Samuel [facility] 02/24/2020 12: 00:00 AM EST [facility] ([facility]) TEMPMHCTelemed 30" Psychotherapy Attender: Catherine thurman [facility] 02/22/2020 11:45:00 AM EST - 02/22/2020 11:45:00 AM EST [facility] ([facility]) Attender: Catherine Tejada 02/22/2020 12:00:0 0 AM EST [facility] ([facility]) Hillary Jarrett PA-C: [address], [place] [phone], Ph. Attender: Hillary COY [facility] Medical 02/02/2020 12:00:00 AM EDT [facility] ([facility]) Hillary Jarrett PA-C: [address], [place] [phone], Ph. Attender: Hillary COY [facility] Medical 02/02/2020 12:00:00 AM EDT [facility] ([facility]) Outpatient Attender: Alejandra MCCOLLUM FP 01/29/2020 08:4 3:59 PM EDT [facility] TEMPMHCTelemed 30" Psychotherapy Attender: Catherine thurman [facility] 01/27/2020 09:45:00 AM EDT - 01/27/2020 09:45:00 AM EDT [facility] ([facility]) Attender: Catherine Tejada 01/27/2020 12:00:0 0 AM EDT [facility] ([facility]) Outpatient Attender: VEDA MCCOLLUM FP 01/26/2020 09:39:01 A M EDT [facility] Outpatient Attender: Sandra Samuel [facility] 01/24/2020 01:00:00 AM EDT - 01/24/2020 01:00:00 AM EDT [facility] ([facility]) Attender: Sandra Samuel [facility] 01/24/2020 12: 00:00 AM EDT [facility] ([facility]) Outpatient Attender: VEDA MCCOLLUM 01/04/2020 11:24:00 A M EDT [facility] Injectable Medication Administration w/ Monitoring & E ducation Attender: Veronica Flores [facility] 01/03/2020 10:30:00 AM EDT - 01/03/2020 10:30:00 AM EDT [facility] ([facility]) Outpatient Attender: FREIDA CHOWDARY MD [facility] 01/03/2020 10:15:00 AM EDT - 01/03/2020 10:15:00 AM EDT [facility] ([facility]) Attender: FREIDA CHOWDARY MD 01/03/2020 12:00:00 A M EDT [facility] ([facility]) Attender: Veronica Flores 01/03/2020 12:00:00 AM EDT [facility] ([facility]) Outpatient Attender: OLAF ARRIOLA MD 01/03/2020 12:00:0 0 AM [facility] Injectable Medication Administration w/ Monitoring & E ducation Attender: Veronica Flores [facility] 12/31/2019 09:30:00 AM EDT - 12/31/2019 09:30:00 AM EDT [facility] ([facility]) Outpatient Attender: VEDA MCKEON 12/31/2019 07:43:01 A M EDT [facility] Attender: Veronica Flores 12/31/2019 12:00:00 AM EDT [facility] ([facility]) Outpatient Attender: VEDA MCKEON 12/30/2019 11:52:00 AM EDT [facility] Injectable Medication Administration w/ Monitoring & E ducation Attender: Veronica Flores [facility] 12/30/2019 09:30:00 AM EDT - 12/30/2019 09:30:00 AM EDT [facility] ([facility]) Attender: Veronica Flores 12/30/2019 12:00:00 AM EDT [facility] Out[facility] Attender: Gemma Travis COMBATANT DIVER QUALIFIED-BC FP 12/26/2019 10: 59:00 AM EDT [facility] Outpatient [facility] 1 1769-[employer] Integration Team 10/28/2016 02:30:00 PM EDT - 01/24/2021 12:00:00 PM EDT [facility] ([facility]) Patient discharged. Functional Status Immunizations Vaccine Date Status Description Data Source(s) COVID-19 VACCINE Sharla 09/07/2020 12:00:00 AM EDT completed [employer] Vaccine Series Complete: YESThis Data wa s Submitted to [facility] [employer]. Medications Medication Brand Name Start Date Product Form Dose Route Admi nistrative Instructions Pharmacy Instructions Status Indications Reaction Description Data Source(s) ferrous sulfate 325 MG Oral Tablet Ferrous Sulfate 09/03/2020 12:00 :00 AM EDT ORAL active [facility] ([facility]) buspirone hydrochloride 7.5 MG Oral Tablet Buspirone HCL 09/03/2020 12:00:00 AM EDT ORAL active [facility] ([facility]) Mirtazapine 15 MG Oral Tablet Mirtazapine 09/03/2020 12:00:00 AM EDT ORAL active [facility] ([facility]) Sertraline 25 MG Oral Tablet Sertraline HCL 09/03/2020 12:00:00 AM EDT ORAL active [facility] ([facility]) Sertraline 100 MG Oral Tablet Sertraline HCL 09/03/2020 12:00:00 AM E DT ORAL active [facility] ([facility]) Aristada Aristada 09/03/2020 12:00:00 AM EDT activ e [facility] ([facility]) Cholecalciferol 1000 UNT Oral Tablet Vitamin D3 09/03/2020 12:00:00 A M EDT ORAL active [facility] ([facility]) Sertraline 25 MG Oral Tablet sertraline 08/23/2020 12:00:00 AM EDT 25 mg by mouth completed <td ID="Medica tionRxNorm_5">793662</td><td ID="MedicationMedication_5">sertraline</td><td ID="MedicationRoute_5">by mouth</td><td ID="MedicationRouteConcept_5">L60261</td><td ID="MedicationStartDate_5">08/23/2020</td><td ID="MedicationStopDate_5">10/22/2020</td><td ID="MedicationDosageFrequency_5">once a day</td><td ID="MedicationDuration_5">30</td><td ID="MedicationFormulaStrength_5">25 mg</td><td ID="MedicationDosageForm_5">tablet</td><td ID="MedicationDosageFormCode_5"></td><td ID="MedicationDosageDescription_5"></td><td ID="MedicationMedicationId_5">[id number]</td><td ID="MedicationAccount_5">[id number]</td><td ID="MedicationNpid_5">[id number]</td><td ID="MedicationAuthorFirstName_5">Sandra</td><td ID="MedicationAuthorLastName_5">Jimmie</td><td ID="MedicationTaxonomyCode_5">[id number]</td><td ID="MedicationTaxonomyDesc_5">Psychiatric/Mental Health</td><td ID="MedicationPhoneNumber_5">[phone]</td> [facility] ([facility]) Sertraline 100 MG Oral Tablet sertraline 08/23/2020 12:00:00 AM EDT 100 mg by mouth completed <td ID="Medica tionRxNorm_3">[id number]</td><td ID="MedicationMedication_3">sertraline</td><td ID="MedicationRoute_3">by mouth</td><td ID="MedicationRouteConcept_3">A82328</td><td ID="MedicationStartDate_3">08/23/2020</td><td ID="MedicationStopDate_3"></td><td ID="MedicationDosageFrequency_3">once a day</td><td ID="MedicationDuration_3"></td><td ID="MedicationFormulaStrength_3">100 mg</td><td ID="MedicationDosageForm_3">tablet</td><td ID="MedicationDosageFormCode_3"></td><td ID="MedicationDosageDescription_3"></td><td ID="MedicationMedicationId_3">[id number]</td><td ID="MedicationAccount_3">[id number]</td><td ID="MedicationNpid_3">[id number]</td><td ID="MedicationAuthorFirstName_3">Zurdo</td><td ID="MedicationAuthorLastName_3">Valencia</td><td ID="MedicationTaxonomyCode_3">[id number]</td><td ID="MedicationTaxonomyDesc_3">Nurse Practitioner</td><td ID="MedicationPhoneNumber_3">[phone]</td> [facility] ([facility]) Sertraline 100 MG Oral Tablet sertraline 08/23/2020 12:00:00 AM EDT 100 mg by mouth completed <td ID="Medica tionRxNorm_2">389319</td><td ID="MedicationMedication_2">sertraline</td><td ID="MedicationRoute_2">by mouth</td><td ID="MedicationRouteConcept_2">E07806</td><td ID="MedicationStartDate_2">08/23/2020</td><td ID="MedicationStopDate_2"></td><td ID="MedicationDosageFrequency_2">once a day</td><td ID="MedicationDuration_2"></td><td ID="MedicationFormulaStrength_2">100 mg</td><td ID="MedicationDosageForm_2">tablet</td><td ID="MedicationDosageFormCode_2"></td><td ID="MedicationDosageDescription_2"></td><td ID="MedicationMedicationId_2">[id number]</td><td ID="MedicationAccount_2">[id number]</td><td ID="MedicationNpid_2">[id number]</td><td ID="MedicationAuthorFirstName_2">Zurdo</td><td ID="MedicationAuthorLastName_2">Valencia</td><td ID="MedicationTaxonomyCode_2">[id number]</td><td ID="MedicationTaxonomyDesc_2">Nurse Practitioner</td><td ID="MedicationPhoneNumber_2">[phone]</td> [facility] ([facility]) Mirtazapine 15 MG Oral Tablet mirtazapine 08/23/2020 12:00:00 AM EDT 15 mg by mouth completed <td ID="Medica tionRxNorm_1">[id number]</td><td ID="MedicationMedication_1">mirtazapine</td><td ID="MedicationRoute_1">by mouth</td><td ID="MedicationRouteConcept_1">Y61909</td><td ID="MedicationStartDate_1">08/23/2020</td><td ID="MedicationStopDate_1"></td><td ID="MedicationDosageFrequency_1">every night</td><td ID="MedicationDuration_1"></td><td ID="MedicationFormulaStrength_1">15 mg</td><td ID="MedicationDosageForm_1">tablet</td><td ID="MedicationDosageFormCode_1"></td><td ID="MedicationDosageDescription_1"></td><td ID="MedicationMedicationId_1">[id number]</td><td ID="MedicationAccount_1">[id number]</td><td ID="MedicationNpid_1">[id number]</td><td ID="MedicationAuthorFirstName_1">Zurdo</td><td ID="MedicationAuthorLastName_1">Valencia</td><td ID="MedicationTaxonomyCode_1">[id number]</td><td ID="MedicationTaxonomyDesc_1">Nurse Practitioner</td><td ID="MedicationPhoneNumber_1">[phone]</td> [facility] ([facility]) Mirtazapine 15 MG Oral Tablet mirtazapine 08/23/2020 12:00:00 AM EDT 15 mg by mouth completed <td ID="Medica tionRxNorm_3">[id number]</td><td ID="MedicationMedication_3">mirtazapine</td><td ID="MedicationRoute_3">by mouth</td><td ID="MedicationRouteConcept_3">O59296</td><td ID="MedicationStartDate_3">08/23/2020</td><td ID="MedicationStopDate_3"></td><td ID="MedicationDosageFrequency_3">every night</td><td ID="MedicationDuration_3"></td><td ID="MedicationFormulaStrength_3">15 mg</td><td ID="MedicationDosageForm_3">tablet</td><td ID="MedicationDosageFormCode_3"></td><td ID="MedicationDosageDescription_3"></td><td ID="MedicationMedicationId_3">[id number]</td><td ID="MedicationAccount_3">[id number]</td><td ID="MedicationNpid_3">[id number]</td><td ID="MedicationAuthorFirstName_3">Zurdo</td><td ID="MedicationAuthorLastName_3">Valencia</td><td ID="MedicationTaxonomyCode_3">[id number]</td><td ID="MedicationTaxonomyDesc_3">Nurse Practitioner</td><td ID="MedicationPhoneNumber_3">[phone]</td> [facility] ([facility]) buspirone hydrochloride 7.5 MG Oral Tablet buspirone 08/23 12:00:00 AM EDT 7.5 mg by mouth completed <td ID="Medic ationRxNorm_2">247378</td><td ID="MedicationMedication_2">buspirone</td><td ID="MedicationRoute_2">by mouth</td><td ID="MedicationRouteConcept_2">K44732</td><td ID="MedicationStartDate_2">08/23/2020</td><td ID="MedicationStopDate_2"></td><td ID="MedicationDosageFrequency_2">twice a day</td><td ID="MedicationDuration_2"></td><td ID="MedicationFormulaStrength_2">7.5 mg</td><td ID="MedicationDosageForm_2">tablet</td><td ID="MedicationDosageFormCode_2"></td><td ID="MedicationDosageDescription_2"></td><td ID="MedicationMedicationId_2">[id number]</td><td ID="MedicationAccount_2">[id number]</td><td ID="MedicationNpid_2">[id number]</td><td ID="MedicationAuthorFirstName_2">Zurdo</td><td ID="MedicationAuthorLastName_2">Valencia</td><td ID="MedicationTaxonomyCode_2">[id number]</td><td ID="MedicationTaxonomyDesc_2">Nurse Practitioner</td><td ID="MedicationPhoneNumber_2">[phone]</td> [facility] ([facility]) buspirone hydrochloride 7.5 MG Oral Tablet buspirone 08/23 12:00:00 AM EDT 7.5 mg by mouth completed <td ID="Medic ationRxNorm_4">669037</td><td ID="MedicationMedication_4">buspirone</td><td ID="MedicationRoute_4">by mouth</td><td ID="MedicationRouteConcept_4">P79517</td><td ID="MedicationStartDate_4">08/23/2020</td><td ID="MedicationStopDate_4"></td><td ID="MedicationDosageFrequency_4">twice a day</td><td ID="MedicationDuration_4"></td><td ID="MedicationFormulaStrength_4">7.5 mg</td><td ID="MedicationDosageForm_4">tablet</td><td ID="MedicationDosageFormCode_4"></td><td ID="MedicationDosageDescription_4"></td><td ID="MedicationMedicationId_4">[id number]</td><td ID="MedicationAccount_4">[id number]</td><td ID="MedicationNpid_4">[id number]</td><td ID="MedicationAuthorFirstName_4">Zurdo</td><td ID="MedicationAuthorLastName_4">Valencia</td><td ID="MedicationTaxonomyCode_4">[id number]</td><td ID="MedicationTaxonomyDesc_4">Nurse Practitioner</td><td ID="MedicationPhoneNumber_4">[phone]</td> [facility] ([facility]) montelukast 10 MG Oral Tablet MONTELUKAST SODIUM [...] ONCE A MONTH FOR PSYCHOSIS SOLD: 07/31/2020 [facility] atorvastatin 20 MG Oral Tablet ATORVASTATIN CALCIUM 07/31/2020 1 2:00:00 AM EDT tablet 30 TAKE ONE TABLET BY MOUTH EVERY D AY FOR CHOLESTEROL TAKE ONE TABLET BY MOUTH EVERY DAY FOR CHOLESTEROL SOLD: 07/31/2020 [facility] 1,000 mg 07/31/2020 12:00:00 AM EDT tablet 60 TAKE ONE TABLET BY MOUTH TWICE A DAY AT 8:00AM AND 8:00PM TAKE ONE TABLET BY MOUTH TWICE A DAY AT 8:00AM AND 8:00PM SOLD: 07/31/2020 [facility] 100 mg 07/31/2020 12:00:00 AM EDT tablet 30 TAKE ONE TABLET BY MOUTH EVERY DAY TAKE ONE TABLET BY MOUTH EVERY DAY SOLD: 07/31/2020 [facility] 5 mg 07/31/2020 12:00:00 AM EDT tablet,delayed release (DR/EC) 14 TAKE ONE TABLET BY MOUTH EVERY DAY NEEDED FOR CONSTIPATION TAKE ONE TABLET BY MOUTH EVERY DAY NEEDED FOR CONSTIPATION SOLD: 07/31/2020 [facility] Aristada Aristada 07/31/2020 12:00:00 AM EDT 662 mg/2.4 completed <td ID="MedicationRxNorm_1">[id number]</td><td ID="MedicationMedication_1">Aristada</td><td ID="MedicationRoute_1">intramuscularly</td><td ID="MedicationRouteConcept_1"></td><td ID="MedicationStartDate_1">07/31/2020</td><td ID="MedicationStopDate_1"></td><td ID="MedicationDosageFrequency_1">every four weeks</td><td ID="MedicationDuration_1"></td><td ID="MedicationFormulaStrength_1">662 mg/2.4 mL</td><td ID="MedicationDosageForm_1">suspension,extended rel syring</td><td ID="MedicationDosageFormCode_1"></td><td ID="MedicationDosageDescription_1">as directed</td><td ID="MedicationMedicationId_1">[id number]</td><td ID="MedicationAccount_1">[id number]</td><td ID="MedicationNpid_1">[id number]</td><td ID="MedicationAuthorFirstName_1">Naveen</td><td ID="MedicationAuthorLastName_1">Oscar</td><td ID="MedicationTaxonomyCode_1">[id number]</td><td ID="MedicationTaxonomyDesc_1"> Nurse Practitioner</td><td ID="MedicationPhoneNumber_1">[phone]</td> [facility] ([facility]) Nystatin 100 UNT/MG Topical Powder 100,000 unit/gram [...] 12:00:00 AM EDT 662 mg/2.4 completed <td ID="MedicationRxNorm_4">[id number]</td><td ID="MedicationMedication_4">Aristada</td><td ID="MedicationRoute_4">intramuscularly</td><td ID="MedicationRouteConcept_4"></td><td ID="MedicationStartDate_4">07/31/2020</td><td ID="MedicationStopDate_4"></td><td ID="MedicationDosageFrequency_4">every four weeks</td><td ID="MedicationDuration_4"></td><td ID="MedicationFormulaStrength_4">662 mg/2.4 mL</td><td ID="MedicationDosageForm_4">suspension,extended rel syring</td><td ID="MedicationDosageFormCode_4"></td><td ID="MedicationDosageDescription_4">as directed</td><td ID="MedicationMedicationId_4">[id number]</td><td ID="MedicationAccount_4">[id number]</td><td ID="MedicationNpid_4">[id number]</td><td ID="MedicationAuthorFirstName_4">Naveen</td><td ID="MedicationAuthorLastName_4">Oscar</td><td ID="MedicationTaxonomyCode_4">[id number]</td><td ID="MedicationTaxonomyDesc_4"> Nurse Practitioner</td><td ID="MedicationPhoneNumber_4">[phone]</td> [facility] ([facility]) 100 mg 07/31/2020 12:00:00 AM EDT capsule 60 TAKE TWO CAPSULES BY MOUTH EVERY DAY FOR CONSTIPATION TAKE TWO CAPSULES BY MOUTH EVERY DAY FOR CONSTIPATION SOLD: 07/31/2020 [facility] 250 mg 07/31/2020 12:00:00 AM EDT tablet 30 TAKE ONE TABLET BY MOUTH EVERY DAY AT BEDTIME FOR SEIZURES TAKE ONE TABLET BY MOUTH EVERY DAY AT BE DTIME FOR SEIZURES SOLD: 07/31/2020 [facility] 10 mg 07/31/2020 12:00:00 AM EDT tablet 30 TAKE ONE TABLET BY MOUTH EVERY DAY FOR ALLERGY TAKE ONE TABLET BY MOUTH EVERY DAY FOR ALLERGY SOLD: [facility] 325 mg (65 mg iron) 07/31/2020 12:00:00 AM EDT tablet 30 TAKE ONE TABLET BY MOUTH EVERY DAY TAKE ONE TABLET BY MOUTH EVERY DAY SOLD: 07/31/2020 [facility] aripiprazole 10 MG Oral Tablet aripiprazole 07/10/2020 12:00:00 AM ED T 10 mg by mouth completed <td ID="Medica tionRxNorm_4">100225</td><td ID="MedicationMedication_4">aripiprazole</td><td ID="MedicationRoute_4">by mouth</td><td ID="MedicationRouteConcept_4">F69418</td><td ID="MedicationStartDate_4">07/10/2020</td><td ID="MedicationStopDate_4"></td><td ID="MedicationDosageFrequency_4">as directed</td><td ID="MedicationDuration_4"></td><td ID="MedicationFormulaStrength_4">10 mg</td><td ID="MedicationDosageForm_4">tablet</td><td ID="MedicationDosageFormCode_4"></td><td ID="MedicationDosageDescription_4"></td><td ID="MedicationMedicationId_4">[id number]</td><td ID="MedicationAccount_4">[id number]</td><td ID="MedicationNpid_4">[id number]</td><td ID="MedicationAuthorFirstName_4">Sandra</td><td ID="MedicationAuthorLastName_4">Jimmie</td><td ID="MedicationTaxonomyCode_4">[id number]</td><td ID="MedicationTaxonomyDesc_4">Psychiatric/Mental Health</td><td ID="MedicationPhoneNumber_4">[phone]</td> [facility] ([facility]) Sertraline 100 MG Oral Tablet sertraline 02/24/2020 12:00:00 AM EST 100 mg completed <td ID="Medicat ionRxNorm_6">[id number]</td><td ID="MedicationMedication_6">sertraline</td><td ID="MedicationRoute_6"></td><td ID="MedicationRouteConcept_6"></td><td ID="MedicationStartDate_6">02/24/2020</td><td ID="MedicationStopDate_6">02/24/2020</td><td ID="MedicationDosageFrequency_6"></td><td ID="MedicationDuration_6"></td><td ID="MedicationFormulaStrength_6">100 mg</td><td ID="MedicationDosageForm_6">tablet</td><td ID="MedicationDosageFormCode_6"></td><td ID="MedicationDosageDescription_6"></td><td ID="MedicationMedicationId_6">[id number]</td><td ID="MedicationAccount_6">[id number]</td><td ID="MedicationNpid_6"></td><td ID="MedicationAuthorFirstName_6"></td><td ID="MedicationAuthorLastName_6"></td><td ID="MedicationTaxonomyCode_6"></td><td ID="MedicationTaxonomyDesc_6"></td><td ID="MedicationPhoneNumber_6"></td> [facility] ([facility]) Lorazepam 0.5 MG Oral Tablet lorazepam 02/24/2020 12:00:00 AM EST 0.5 mg by mouth completed <td ID="Medica tionRxNorm_4">258477</td><td ID="MedicationMedication_4">lorazepam</td><td ID="MedicationRoute_4">by mouth</td><td ID="MedicationRouteConcept_4">E34154</td><td ID="MedicationStartDate_4">02/24/2020</td><td ID="MedicationStopDate_4"></td><td ID="MedicationDosageFrequency_4"></td><td ID="MedicationDuration_4"></td><td ID="MedicationFormulaStrength_4">0.5 mg</td><td ID="MedicationDosageForm_4">tablet</td><td ID="MedicationDosageFormCode_4"></td><td ID="MedicationDosageDescription_4">as directed</td><td ID="MedicationMedicationId_4">[id number]</td><td ID="MedicationAccount_4">[id number]</td><td ID="MedicationNpid_4">[id number]</td><td ID="MedicationAuthorFirstName_4">Sandra</td><td ID="MedicationAuthorLastName_4">[place]</td><td ID="MedicationTaxonomyCode_4">[id number]</td><td ID="MedicationTaxonomyDesc_4">Psychiatric/Mental Health</td><td ID="MedicationPhoneNumber_4">[phone]</td> [facility] ([facility]) Mirtazapine 15 MG Oral Tablet mirtazapine 02/24/2020 12:00:00 AM EST 15 mg completed <td ID="Medicat ionRxNorm_5">760565</td><td ID="MedicationMedication_5">mirtazapine</td><td ID="MedicationRoute_5"></td><td ID="MedicationRouteConcept_5"></td><td ID="MedicationStartDate_5">02/24/2020</td><td ID="MedicationStopDate_5">02/24/2020</td><td ID="MedicationDosageFrequency_5"></td><td ID="MedicationDuration_5"></td><td ID="MedicationFormulaStrength_5">15 mg</td><td ID="MedicationDosageForm_5">tablet</td><td ID="MedicationDosageFormCode_5"></td><td ID="MedicationDosageDescription_5"></td><td ID="MedicationMedicationId_5">[id number]</td><td ID="MedicationAccount_5">[id number]</td><td ID="MedicationNpid_5"></td><td ID="MedicationAuthorFirstName_5"></td><td ID="MedicationAuthorLastName_5"></td><td ID="MedicationTaxonomyCode_5"></td><td ID="MedicationTaxonomyDesc_5"></td><td ID="MedicationPhoneNumber_5"></td> [facility] ([facility]) Sertraline 50 MG Oral Tablet sertraline 50 mg tablet Take 1 tablet every day by oral route. sertraline 50 mg tablet Take 1 tablet every day by oral route. 1 completed sertraline 50 MG Oral Tablet [facility] ([facility]) Sertraline 25 MG Oral Tablet sertraline 25 mg tablet Take 1 tablet every day by oral route in the morning. sertraline 25 mg tablet Take 1 tablet ev gretta day by oral route in the morning. 1 completed sertraline 25 MG Oral Tablet [facility] ([facility]) Vitamin D3 25 Mcg CAP PO QAM completed Vitamin D3 [facility] ([facility]) Levetiracetam 250 MG Oral Tablet levetiracetam 250 mg tablet levetiracetam 250 mg tablet completed levetiraceta m 250 MG Oral Tablet [facility] ([facility]) Omeprazole 20 MG Delayed Release Oral Ca psule omeprazole 20 mg capsule,delayed release omeprazole 20 mg capsule,delayed release completed omeprazole 20 MG Delayed Release Oral Capsule [place] ([facility]) Lorazepam 1 MG Oral Tablet lorazepam 1 mg tablet lorazepam 1 mg tablet completed lorazepam 1 MG Oral Table t [place] ([facility]) Hydroxyzine Pamoate 25 MG Oral Capsule hydroxyzine donnell oate 25 mg capsule hydroxyzine pamoate 25 mg capsule comp leted hydroxyzine pamoate 25 MG Oral Capsule [place] ([facility]) ferrous sulfate 325 MG Delayed Release O ral Tablet ferrous sulfate 325 mg (65 mg iron) tablet,delayed release ferrous sulfate 325 mg (65 mg iron) tabl et,delayed release completed ferrou s sulfate 325 MG Delayed Release Oral Tablet [place] ([facility]) Mirtazapine 30 MG Oral Tablet mirtazapine 30 mg tablet saurabh zapine 30 mg tablet completed mirtazapine 30 MG Oral Tablet [place] ([facility]) Mirtazapine 7.5 MG Oral Tablet mirtazapine 7.5 mg tabl et mirtazapine 7.5 mg tablet completed mirtazapine 7.5 MG Oral Tablet [place] ([facility]) Escitalopram 20 MG Oral Tablet escitalopram 20 mg tabl et escitalopram 20 mg tablet completed escitalopram 20 MG Oral Tablet [place] ([facility]) Sertraline 100 MG Oral Tablet sertraline 100 mg tablet sertr maliha 100 mg tablet completed sertraline 100 MG Oral Tablet [place] ([facility]) Levetiracetam 250 MG Oral Tablet levetiracetam 250 mg tablet levetiracetam 250 mg tablet completed levetiraceta m 250 MG Oral Tablet [place] ([facility]) vitamin d3 1000 unit caps compl eted vitamin d3 1000 unit caps [facility] ([facility]) Cholecalciferol 2000 UNT Oral Capsule ch olecalciferol (vitamin D3) 50 mcg (2,000 unit) capsule TAKE ONE CAPSULE BY MOUTH @8AM cholecalciferol (vitamin D3) 50 mcg (2,000 unit) capsule TAKE ONE CAPSULE BY MOUTH @8AM completed cholecalciferol 0.05 MG Oral Capsule [place] ([facility]) Amantadine Hydrochloride 100 MG Oral Capsule amantadin e HCl 100 mg capsule amantadine HCl 100 mg capsule complete d amantadine hydrochloride 100 MG Oral Capsule [place] ([facility]) Aristada Initio 675 mg/2.4 mL suspension, extend.rel. IM syringe [id number] 6 completed 2.4 ML aripipra zole lauroxil 281.3 MG/ML Prefilled Syringe [Aristada] [place] ([facility]) buspirone hydrochloride 7.5 MG Oral Tablet buspirone 7 .5 mg tablet buspirone 7.5 mg tablet completed buspirone h ydrochloride 7.5 MG Oral Tablet [place] ([facility]) Mirtazapine 15 MG Oral Tablet mirtazapin e 15 mg tablet Take 1 tablet every day by oral route. mirtazapine 15 mg tablet Take 1 tablet every day by or al route. 1 completed mirtazapine 15 MG Oral Tablet [place] ([facility]) Sulfamethoxazole 800 MG / Trimethoprim 1 60 MG Oral Tablet sulfamethoxazole 800 mg-trimethoprim 160 mg tablet sulfamethoxazole 800 mg-trimethoprim 160 mg tablet completed sulfame thoxazole 800 MG / trimethoprim 160 MG Oral Tablet [place] ([facility]) Hydroxyzine Hydrochloride 50 MG Oral Tab let hydroxyzine HCl 50 mg tablet Take 1 tablet 3 times a day by oral route. hydroxyzine HCl 50 mg tablet Take 1 tabl et 3 times a day by oral route. 1 completed hydroxyzine hydrochloride 50 MG Oral Tablet [place] ([facility]) ferrous sulfate 325 MG TAB PO TID comple cindi ferrous sulfate [place] ([facility]) aripiprazole 10 MG Oral Tablet aripiprazole 10 mg tabl et aripiprazole 10 mg tablet completed aripiprazole 10 MG Oral Tablet [place] ([facility]) Aristada 441 mg/1.6 mL suspension, extend.rel. IM syringe [id number] completed 1.6 ML aripiprazole lauroxil 276 MG/ML Prefilled Syringe [Aristada] [place] ([facility]) Hydroxyzine Hydrochloride 50 MG Oral Tab let hydroxyzine HCl 50 mg tablet Take 1 tablet 3 times a day by oral route. hydroxyzine HCl 50 mg tablet Take 1 tabl et 3 times a day by oral route. 1 completed hydroxyzine hydrochloride 50 MG Oral Tablet [place] ([facility]) vitamin d3 50 mcg (1999) caps completed vitamin d3 50 mcg (1999) caps [facility] ([facility]) Amantadine Hydrochloride 100 MG Oral Capsule amantadin e HCl 100 mg capsule amantadine HCl 100 mg capsule complete d amantadine hydrochloride 100 MG Oral Capsule [facility] ([facility]) buspirone hydrochloride 7.5 MG Oral Tablet buspirone 7 .5 mg tablet buspirone 7.5 mg tablet completed buspirone h ydrochloride 7.5 MG Oral Tablet [place] ([facility]) Sulfamethoxazole 800 MG / Trimethoprim 1 60 MG Oral Tablet sulfamethoxazole 800 mg-trimethoprim 160 mg tablet sulfamethoxazole 800 mg-trimethoprim 160 mg tablet completed sulfame thoxazole 800 MG / trimethoprim 160 MG Oral Tablet [place] ([facility]) Cefuroxime 500 MG Oral Tablet cefuroxime axetil 500 mg tablet cefuroxime axetil 500 mg tablet completed cefuroxi me 500 MG Oral Tablet [place] ([facility]) Aristada 441 mg/1.6 mL suspension, extend.rel. IM syringe [id number] completed 1.6 ML aripiprazole lauroxil 276 MG/ML Prefilled Syringe [Aristada] [place] ([facility]) vitamin d3 50 mcg (1999) caps completed vitamin d3 50 mcg (1999) caps [place] ([facility]) aripiprazole 10 MG Oral Tablet aripiprazole 10 mg tabl et aripiprazole 10 mg tablet completed aripiprazole 10 MG Oral Tablet [place] ([facility]) Aristada Initio 675 mg/2.4 mL suspension, extend.rel. IM syringe [id number] 6 completed 2.4 ML aripipra zole lauroxil 281.3 MG/ML Prefilled Syringe [[facility]ada] [place] ([facility]) Vitamin D3 25 Mcg CAP PO QAM completed Vitamin D3 [place] ([facility]) Lorazepam 1 MG Oral Tablet lorazepam 1 mg tablet lorazepam 1 mg tablet completed lorazepam 1 MG Oral Table t [facility] ([facility]) ferrous sulfate 325 MG TAB PO TID comple cindi ferrous sulfate [place] ([facility]) Hydroxyzine Pamoate 25 MG Oral Capsule hydroxyzine donnell oate 25 mg capsule hydroxyzine pamoate 25 mg capsule comp leted hydroxyzine pamoate 25 MG Oral Capsule [facility] ([facility]) Sertraline 50 MG Oral Tablet sertraline 50 mg tablet Take 1 tablet every day by oral route. sertraline 50 mg tablet Take 1 tablet every day by oral route. 1 completed sertraline 50 MG Oral Tablet [facility] ([facility]) Hydroxyzine Hydrochloride 25 MG Oral Tablet hydroxyzin e HCl 25 mg tablet hydroxyzine HCl 25 mg tablet completed hydroxyzine hydrochloride 25 MG Oral Tablet [facility] ([facility]) Cefuroxime 500 MG Oral Tablet cefuroxime axetil 500 mg tablet cefuroxime axetil 500 mg tablet completed cefuroxi me 500 MG Oral Tablet [facility] ([facility]) vitamin d3 1000 unit caps compl eted vitamin d3 1000 unit caps [facility] ([facility]) Sertraline 100 MG Oral Tablet sertraline 100 mg tablet sertr maliha 100 mg tablet completed sertraline 100 MG Oral Tablet [place] ([facility]) Mirtazapine 30 MG Oral Tablet mirtazapine 30 mg tablet saurabh zapine 30 mg tablet completed mirtazapine 30 MG Oral Tablet [facility] ([facility]) Escitalopram 20 MG Oral Tablet escitalopram 20 mg tabl et escitalopram 20 mg tablet completed escitalopram 20 MG Oral Tablet [facility] ([facility]) Hydroxyzine Hydrochloride 25 MG Oral Tablet hydroxyzin e HCl 25 mg tablet hydroxyzine HCl 25 mg tablet completed hydroxyzine hydrochloride 25 MG Oral Tablet [facility] ([facility]) Sertraline 25 MG Oral Tablet sertraline 25 mg tablet Take 1 tablet every day by oral route in the morning. sertraline 25 mg tablet Take 1 tablet ev gretta day by oral route in the morning. 1 completed sertraline 25 MG Oral Tablet [facility] ([facility]) Insurance Providers Payer name Policy type / Coverage type Policy ID Covered constitution party ID Covered constitution party's relationship to johnson Policy [employer] Plan Information MEDICAID [id number] SP [id number] [employer] COMM[employer] PLAN MCDO [id number] SP [id number] BLUE CROSS GRAVES PLAN [id number] SP [id number] [facility] [employer] Blue Option Medigap Part B [id number] Self [id number] BS [place] [employer] Option Medigap Part B [id number] [id number] Self [id number] [facility] [place] [employer] Option Medigap Part B [id number] [id number] Self [id number] BS [place] [employer] Option Medigap Part B [id number] [id number] Self [id number] BS [place] [employer] Option Medigap Part B [id number] Self BS [place] [employer] Option Medigap Part B [id number] [id number] Self [id number] BS [place] [employer] Medigap Part B [id number] [id number] Self [id number] BS [place] [employer] Medigap Part B [id number] [id number] Self [id number] BS [place] [employer] Medigap Part B [id number] [id number] Self [id number] BS [place] [employer] Medigap Part B [id number] Self [id number] BS K[facility]issa [facility] Blue Option Medigap Part B [id number] Self [id number] BS [facility] Blue Option Medigap Part B [id number] Self [id number] BS [facility] Blue Option Medigap Part B [id number] Self [id number] [facility] COMMUNITY PLAN MCDHMO [id number] SP [id number] [facility] Community Plan Medigap Part B [id number] Self [id number] [facility] Community Plan Medigap Part B [id number] Self [id number] [facility] Community Plan Medigap Part B [id number] Self [id number] [facility] Community Plan Commercial [id number] Self [facility] Community Plan Medigap Part B [id number] Self [id number] [facility] Community Plan Medigap Part B [id number] Self [id number] [facility] Community Plan Medigap Part B [id number] Self [id number] [facility] Community Plan Medigap Part B [id number] Self [id number] [facility] Community Plan Medigap Part B [id number] Self [id number] [facility] Community Plan Medigap Part B [id number] Self [id number] Uh Community Plan Medigap Part B [id number] Self [id number] [facility] Community Plan Medigap Part B [id number] Self [id number] [facility] Community Plan Medigap Part B [id number] Self [id number] [facility] COMMUNITY PLAN MC [id number] 18 [id number] [facility] Community Plan Medicaid [id number] Self [id number] [facility] Community Plan Medicaid 1941 Self [facility] COMMUNITY PLAN MCDHMO [id number] SP [id number] [facility] COMMUNITY PLAN MCDO [id number] SP [id number] Managed Care - Community Plan [facility] P [id number] S [id number] [facility] Community Plan Commercial [id number] Self [id number] Medicaid S [id number] S [id number] Managed Care - Community Plan [facility] P [id number] S [id number] Medicaid S [id number] [place] [id number] Self [id number] Managed Care - [facility] Community Plan P [id number] S [id number] Managed Care - Community Plan [facility] P [id number] S [id number] UH I [id number] Self [id number] Medicaid S [id number] S [id number] Managed Care - [facility] Community Plan P [id number] S [id number] Medicaid S [id number] [facility] [id number] SP [id number] UNHC COMMUNITY PLAN MCDHMO [id number] SP [id number] [facility] O [id number] S [id number] MEDICAID M [id number] S [id number] UN COMMUNITY PLAN [facility] [id number] SP [id number] Managed Care - Community Plan [facility] P [id number] S [id number] Medicaid S [id number] S [id number] [facility] COMMUNITY PLAN [facility] [id number] SP [id number] SELF PAY ONLY [id number] SP [id number] [facility] COMMUNITY PLAN [facility] [id number] SP [id number] SELF PAY ONLY [id number] SP [id number] [facility]) O [id number] S [id number] [facility] Klarissa/MCR Health Maintenance Organization (HMO) [id number] Self [id number] [facility] Comm Plan - Medicaid Medicaid [id number] Self [facility] PU[facility] HLTH [id number] SP [id number] UN AMERICHOICE XIX -HMO [id number] 18 [id number] [facility] Community Plan-Caid Medicaid [id number] Self [facility] [id number] 18 [id number] [facility] [id number] 18 [id number] BLUE CROSS BLUE SHIELD-O/P [id number] 18 [id number] MEDICAID-O/P [id number] 18 [id number] MEDICAID - CLINIC [id number] [facility] COMMUNITY PLAN [facility] [id number] SP [id number] Problems, Conditions, and Diagnoses Code Display Name Description Problem Type Effective Dates Data Source(s) schizoaffective, SI, paranoid schizoaffective, SI, par anoid Diagnosis 07/10/2020 07:50:00 PM EDT [facility] F41.9 Anxiety disorder, unspecified Unspecified Anxiety Diso rder Condition 01/24/2021 12:00:00 AM EDT [facility] ([facility]) F25.1 Schizoaffective disorder, depressive typ e Schizoaffective Disorder, Depressive type Condition 01/24/2021 12:00:00 AM EDT [facility] ([facility]) E66.8 Obesity Obesity Problem 09/04/2020 12:00:00 AM ED T [facility] ([facility]) [id number] Vitamin D deficiency Vitamin D Deficiency Problem 04/19/2020 12:00:00 AM EST [facility] ([facility]) F32.9 Major depressive disorder, single episod e, unspecified Unspecified depressive Disorder Condition 02/22/2020 12:00:00 AM EST [facility] ([facility]) [id number] Nicotine dependence Nicotine Dependence Problem 1 12:00:00 AM EDT [facility] ([facility]) [id number] Nicotine dependence Nicotine Dependence Problem 1 12:00:00 AM EDT [facility] ([facility]) [id number] Impacted cerumen in right ear Impacted Cerumen in Right Ear Problem 09/29/2019 12:00:00 AM EDT - 02/02/2020 12:00:00 AM ED T [facility] ([facility]) [id number] Patient asked to attend Patient Asked to Attend Proble 09/29/2019 12:00:00 AM EDT - 02/02/2020 12:00:00 AM EDT [facility] ([facility]) [id number] Tobacco use and exposure - finding Tobacco Use a nd Exposure - Finding Problem 09/29/2019 12:00:00 AM EDT - 02/02/2020 12:00:00 AM ED T [facility] ([facility]) [id number] Nicotine dependence Nicotine Dependence Problem 0 09/29/2019 12:00:00 AM EDT - 02/02/2020 12:00:00 AM EDT [facility] ([facility]) [id number] Impacted cerumen in right ear Impacted Cerumen in Right Ear Problem 09/29/2019 12:00:00 AM EDT - 02/02/2020 12:00:00 AM ED T [facility] ([facility]) [id number] Patient asked to attend Patient Asked to Attend Proble 09/29/2019 12:00:00 AM EDT - 02/02/2020 12:00:00 AM EDT [facility] ([facility]) [id number] Tobacco use and exposure - finding Tobacco Use a nd Exposure - Finding Problem 09/29/2019 12:00:00 AM EDT - 02/02/2020 12:00:00 AM ED T [facility] ([facility]) [id number] Nicotine dependence Nicotine Dependence Problem 0 09/29/2019 12:00:00 AM EDT - 02/02/2020 12:00:00 AM EDT [facility] ([facility]) [id number] Clinical finding Clinical Finding Problem 020 12:00:00 AM EDT - 03/29/2020 12:00:00 AM EST [facility] ([facility]) [id number] Anesthesia of skin Anesthesia of Skin Problem 12:00:00 AM EDT - 02/02/2020 12:00:00 AM EDT [facility] ([facility]) [id number] Anesthesia of skin Anesthesia of Skin Problem 12:00:00 AM EDT - 02/02/2020 12:00:00 AM EDT [facility] ([facility]) [id number] Clinical finding Clinical Finding Problem 019 12:00:00 AM EST - 02/02/2020 12:00:00 AM EDT [facility] ([facility]) [id number] Clinical finding Clinical Finding Problem 019 12:00:00 AM EST - 02/02/2020 12:00:00 AM EDT [facility] ([facility]) [id number] Breast neoplasm screening status Breast Neoplasm Screening Status Problem 11/11/2018 12:00:00 AM EDT - 04/19/2020 12:00:00 AM LISA [facility] ([facility]) [id number] Electrocardiogram abnormal Electrocardiogram Abnormal Problem 11/11/2018 12:00:00 AM EDT - 04/19/2020 12:00:00 AM EST [facility] ([facility]) [id number] Dizziness and giddiness Dizziness and Giddiness Proble m 11/11/2018 12:00:00 AM EDT - 02/02/2020 12:00:00 AM EDT [facility] ([facility]) [id number] Dizziness and giddiness Dizziness and Giddiness Proble m 11/11/2018 12:00:00 AM EDT - 02/02/2020 12:00:00 AM EDT [facility] ([facility]) [id number] Dysuria Dysuria Problem 04/02/2018 12:0 0:00 AM EST - 02/02/2020 12:00:00 AM EDT [facility] ([facility]) [id number] Urinary tract infectious disease Urinary Tract I nfectious Disease Problem 04/02/2018 12:00:00 AM EST - 02/02/2020 12:00:00 AM ED T [facility] ([facility]) [id number] Dysuria Dysuria Problem 04/02/2018 12:0 0:00 AM EST - 02/02/2020 12:00:00 AM EDT [facility] ([facility]) [id number] Urinary tract infectious disease Urinary Tract I nfectious Disease Problem 04/02/2018 12:00:00 AM EST - 02/02/2020 12:00:00 AM ED T [facility] ([facility]) [id number] Influenza vaccine needed Influenza Vaccine Needed Pro blem 03/13/2018 12:00:00 AM EST - 02/02/2020 12:00:00 AM EDT [facility] ([facility]) [id number] Influenza vaccine needed Influenza Vaccine Needed Pro blem 03/13/2018 12:00:00 AM EST - 02/02/2020 12:00:00 AM EDT [facility] ([facility]) [id number] Screening for malignant neoplasm of cerv ix Screening for Malignant Neoplasm of Cervix Problem 09/29/2017 12:00:00 AM EDT - 02/02/2020 12:00:00 AM EDT [facility] ([facility]) [id number] Screening for malignant neoplasm of cerv ix Screening for Malignant Neoplasm of Cervix Problem 09/29/2017 12:00:00 AM EDT - 02/02/2020 12:00:00 AM EDT [facility] ([facility]) [id number] Enterovirus enteritis Enterovirus Enteritis Problem 09/09/2017 12:00:00 AM EDT - 02/02/2020 12:00:00 AM EDT [facility] ([facility]) [id number] Enterovirus enteritis Enterovirus Enteritis Problem 09/09/2017 12:00:00 AM EDT - 02/02/2020 12:00:00 AM EDT [facility] ([facility]) [id number] Influenza vaccination status Influenza Vaccination Sta tus Problem 03/11/2017 12:00:00 AM EST - 02/02/2020 12:00:00 AM EDT [facility] ([facility]) [id number] Foot pain Foot Pain Problem 03/11/2017 12:0 0:00 AM EST - 02/02/2020 12:00:00 AM EDT [facility] ([facility]) [id number] Influenza vaccination status Influenza Vaccination Sta tus Problem 03/11/2017 12:00:00 AM EST - 02/02/2020 12:00:00 AM EDT [facility] ([facility]) [id number] Foot pain Foot Pain Problem 03/11/2017 12:0 0:00 AM EST - 02/02/2020 12:00:00 AM EDT [facility] ([facility]) [id number] Procedure by method Procedure by Method Problem 0 01/03/2017 12:00:00 AM EDT - 02/02/2020 12:00:00 AM EDT [facility] ([facility]) [id number] Fitting procedure Fitting Procedure Problem 01/03 12:00:00 AM EDT - 02/02/2020 12:00:00 AM EDT [facility] ([facility]) [id number] Procedure by method Procedure by Method Problem 0 01/03/2017 12:00:00 AM EDT - 02/02/2020 12:00:00 AM EDT [facility] ([facility]) [id number] Fitting procedure Fitting Procedure Problem 01/03 12:00:00 AM EDT - 02/02/2020 12:00:00 AM EDT [facility] ([facility]) Surgeries/Procedures Procedure Description Date Indications Data Source(s) THERAPEUTIC PROPHYLACTIC/DX INJECTION SUBQ/IM 01/24/2021 12:00:00 AM EDT - 01/24/2021 12:00:00 AM EDT [facility] ([facility]) THERAPEUTIC PROPHYLACTIC/DX INJECTION SUBQ/IM 01/25/20 12:00:00 AM EDT [facility] ([facility]) Brief Individual Psychotherapy - 30 min 01/10/2021 12:00:00 AM EDT - 01/10/2021 12:00:00 AM EDT [facility] ([facility]) Brief Individual Psychotherapy - 30 min 01/10/2021 12: 00:00 AM EDT [facility] ([facility]) Comprehensive medication services, per 15 minutes 12/25/2020 12:00:00 AM EDT - 12/25/2020 12:00:00 AM EDT [facility] ([facility]) Comprehensive medication services, per 15 minutes 12/25/2020 12:00:00 AM EDT [facility] ([facility]) Comprehensive medication services, per 15 minutes 11/27/2020 12:00:00 AM EDT - 11/27/2020 12:00:00 AM EDT [facility] ([facility]) Comprehensive medication services, per 15 minutes 11/27/2020 12:00:00 AM EDT [facility] ([facility]) Brief Individual Psychotherapy - 30 min 11/21/2020 12:00:00 AM EDT - 11/21/2020 12:00:00 AM EDT [facility] ([facility]) Brief Individual Psychotherapy - 30 min 11/21/2020 12: 00:00 AM EDT [facility] ([facility]) Brief Individual Psychotherapy - 30 min 10/26/2020 12:00:00 AM EDT - 10/26/2020 12:00:00 AM EDT [facility] ([facility]) Brief Individual Psychotherapy - 30 min 10/26/2020 12: 00:00 AM EDT [facility] ([facility]) Comprehensive medication services, per 15 minutes 10/26/2020 12:00:00 AM EDT - 10/26/2020 12:00:00 AM EDT [facility] ([facility]) Comprehensive medication services, per 15 minutes 10/26/2020 12:00:00 AM EDT [facility] ([facility]) Comprehensive medication services, per 15 minutes 09/29/2020 12:00:00 AM EDT - 09/29/2020 12:00:00 AM EDT [facility] ([facility]) Comprehensive medication services, per 15 minutes 09/29/2020 12:00:00 AM EDT [facility] ([facility]) ECG ROUTINE ECG W/LEAST 12 LDS W/I&R 09/04/2020 12:00: 00 AM EDT [facility] ([facility]) Comprehensive medication services, per 15 minutes 09/01/2020 12:00:00 AM EDT - 09/01/2020 12:00:00 AM EDT [facility] ([facility]) Comprehensive medication services, per 15 minutes 09/01/2020 12:00:00 AM EDT [facility] ([facility]) Comprehensive medication services, per 15 minutes 08/03/2020 12:00:00 AM EDT - 08/03/2020 12:00:00 AM EDT [facility] ([facility]) Comprehensive medication services, per 15 minutes 08/03/2020 12:00:00 AM EDT [facility] ([facility]) Extended Individual Psychotherapy - 45 min 08/03/2020 12:00:00 AM EDT - 08/03/2020 12:00:00 AM EDT [facility] ([facility]) Extended Individual Psychotherapy - 45 min 12:00:00 AM EDT [facility] ([facility]) Brief Individual Psychotherapy - 30 min 07/10/2020 12:00:00 AM EDT - 07/10/2020 12:00:00 AM EDT [facility] ([facility]) Brief Individual Psychotherapy - 30 min 07/10/2020 12: 00:00 AM EDT [facility] ([facility]) THERAPEUTIC PROPHYLACTIC/DX INJECTION SUBQ/IM 07/10/2020 12:00:00 AM EDT - 07/10/2020 12:00:00 AM EDT [facility] ([facility]) THERAPEUTIC PROPHYLACTIC/DX INJECTION SUBQ/IM 07/11/19 12:00:00 AM EDT [facility] ([facility]) THERAPEUTIC PROPHYLACTIC/DX INJECTION SUBQ/IM 06/29/2020 12:00:00 AM EDT - 06/29/2020 12:00:00 AM EDT [facility] ([facility]) THERAPEUTIC PROPHYLACTIC/DX INJECTION SUBQ/IM 06/29/19 21 12:00:00 AM EDT [facility] ([facility]) MHC Telemed E/M Lvl 3--Est pt 05/31/2020 12:00:00 AM EST - 05/31/2020 12:00:00 AM EST [facility] ([facility]) MHC Telemed E/M Lvl 3--Est pt 05/31/2020 12:00:[address] [facility] ([facility]) THERAPEUTIC PROPHYLACTIC/DX INJECTION SUBQ/IM 05/31/2020 12:00:00 AM EST - 05/31/2020 12:00:00 AM EST [facility] ([facility]) THERAPEUTIC PROPHYLACTIC/DX INJECTION SUBQ/IM 05/31/19 12:00:00 AM EST [facility] ([facility]) MHC Telemed E/M Lvl 3--Est pt 05/25/2020 12:00:00 AM EST - 05/25/2020 12:00:00 AM EST [facility] ([facility]) MHC Telemed E/M Lvl 3--Est pt 05/25/2020 12:00:[address] [facility] ([facility]) Extended Individual Psychotherapy - 45 min 05/19/2020 12:00:00 AM EST - 05/19/2020 12:00:00 AM EST [facility] ([facility]) Extended Individual Psychotherapy - 45 min 12:00:00 AM EST [facility] ([facility]) Extended Individual Psychotherapy - 45 min 05/09/2020 12:00:00 AM EST - 05/09/2020 12:00:00 AM EST [facility] ([facility]) Extended Individual Psychotherapy - 45 min 12:00:00 AM EST [facility] ([facility]) Comprehensive medication services, per 15 minutes 05/04/2020 12:00:00 AM EST - 05/04/2020 12:00:00 AM EST [facility] ([facility]) Comprehensive medication services, per 15 minutes 05/04/2020 12:00:00 AM EST [facility] ([facility]) MHC Telemed E/M Lvl 3--Est pt 05/04/2020 12:00:00 AM EST - 05/04/2020 12:00:00 AM EST [facility] ([facility]) MHC Telemed E/M Lvl 3--Est pt 05/04/2020 12:00:[address] [facility] ([facility]) THERAPEUTIC PROPHYLACTIC/DX INJECTION SUBQ/IM 05/01/2020 12:00:00 AM EST - 05/01/2020 12:00:00 AM EST [facility] ([facility]) THERAPEUTIC PROPHYLACTIC/DX INJECTION SUBQ/IM 05/01/19 12:00:00 AM EST [facility] ([facility]) Extended Individual Psychotherapy - 45 min 04/24/2020 12:00:00 AM EST - 04/24/2020 12:00:00 AM EST [facility] ([facility]) Extended Individual Psychotherapy - 45 min 12:00:00 AM EST [facility] ([facility]) MHC Telemed E/M Lvl 3--Est pt 04/20/2020 12:00:00 AM EST - 04/20/2020 12:00:00 AM EST [facility] ([facility]) MHC Telemed E/M Lvl 3--Est pt 04/20/2020 12:00:[address] [facility] ([facility]) Telemed A/O 30" 04/20/2020 12:00:00 AM EST [facility] ([facility]) OFFICE OUTPATIENT VISIT 15 MINUTES 04/20/2020 12:00:00 AM EST [facility] ([facility]) THERAPEUTIC PROPHYLACTIC/DX INJECTION SUBQ/IM 04/03/2020 12:00:00 AM EST - 04/03/2020 12:00:00 AM EST [facility] ([facility]) THERAPEUTIC PROPHYLACTIC/DX INJECTION SUBQ/IM 04/03/20 20 12:00:00 AM EST [facility] ([facility]) THERAPEUTIC PROPHYLACTIC/DX INJECTION SUBQ/IM 03/31/2020 12:00:00 AM EST - 03/31/2020 12:00:00 AM EST [facility] ([facility]) THERAPEUTIC PROPHYLACTIC/DX INJECTION SUBQ/IM 03/31/20 20 12:00:00 AM EST [facility] ([facility]) OFFICE OUTPATIENT VISIT 15 MINUTES 03/29 12:00:00 AM EST - 03/29/2020 12:00:00 AM EST [facility] ([facility]) OFFICE OUTPATIENT VISIT 15 MINUTES 03/29/2020 12:00:00 AM EST [facility] ([facility]) Extended Individual Psychotherapy - 45 min 03/21/2020 12:00:00 AM EST - 03/21/2020 12:00:00 AM EST [facility] ([facility]) Extended Individual Psychotherapy - 45 min 0 12:00:00 AM EST [facility] ([facility]) OFFICE OUTPATIENT VISIT 15 MINUTES 02/23 12:00:00 AM EST - 02/24/2020 12:00:00 AM EST [facility] ([facility]) Psychotherapy ADD ON - 30 Minutes 02/24/2020 12:00:00 AM EST [facility] ([facility]) OFFICE OUTPATIENT VISIT 15 MINUTES 02/24/2020 12:00:00 AM EST [facility] ([facility]) TEMPMHCTelemed 30" Psychotherapy 12:00:00 AM EST - 02/22/2020 12:00:00 AM EST [facility] ([facility]) TEMPMHCTelemed 30" Psychotherapy 02/22/2020 12:00:00 A M EST [facility] ([facility]) TEMPMHCTelemed 30" Psychotherapy 12:00:00 AM EDT - 01/27/2020 12:00:00 AM EDT [facility] ([facility]) TEMPMHCTelemed 30" Psychotherapy 01/27/2020 12:00:00 A M EDT [facility] ([facility]) [facility] Telemed E/M Lvl 3--Est pt 01/24/2020 12:00:00 AM EDT - 01/24/2020 12:00:00 AM EDT [facility] ([facility]) MHC Telemed E/M Lvl 3--Est pt 01/24/2020 12:00:00 AM E DT [facility] ([facility]) OFFICE OUTPATIENT NEW 30 MINUTES 12:00:00 AM EDT - 01/03/2020 12:00:00 AM EDT [facility] ([facility]) OFFICE OUTPATIENT NEW 30 MINUTES 01/03/2020 12:00:00 A M EDT [facility] ([facility]) Comprehensive medication services, per 15 minutes 01/03/2020 12:00:00 AM EDT - 01/03/2020 12:00:00 AM EDT [facility] ([facility]) Comprehensive medication services, per 15 minutes 01/03/2020 12:00:00 AM EDT [facility] ([facility]) Comprehensive medication services, per 15 minutes 12/31/2019 12:00:00 AM EDT - 12/31/2019 12:00:00 AM EDT [facility] ([facility]) Comprehensive medication services, per 15 minutes 12/31/2019 12:00:00 AM EDT [facility] ([facility]) Comprehensive medication services, per 15 minutes 12/30/2019 12:00:00 AM EDT - 12/30/2019 12:00:00 AM EDT [facility] ([facility]) Comprehensive medication services, per 15 minutes 12/30/2019 12:00:00 AM EDT [facility] ([facility]) Results ID Date Data Source [id number] 02/14/2021 10:51:00 PM EDT [facility] Name Value Range Interpretation Code Description Data Mitra rce(s) Supporting Document(s) SARS coronavirus 2 RNA [Presence] in Res piratory specimen by MICKIE with probe detection NEGATIVE [facility] This lab was ordered by [facility] a nd reported by [facility]. ID Date Data Source [id number] 09/08/2020 09:36:00 AM EDT [facility] ([facility]) Name Value Range Interpretation Code Description Data Mitra rce(s) Supporting Document(s) Magnesium [Mass/volume] in Serum or Plasma 2.4 mg/dL 1.8-2.4 [facility] ([facility]) ID Date Data Source [id number] 09/08/2020 09:36:00 AM EDT [facility] ([facility]) Name Value Range Interpretation Code Description Data Mitra rce(s) Supporting Document(s) Blood Urea Nitrogen 11 mg/dL 7-18 [facility] ([facility] Glucose, Fasting 86 mg/dL 70-100 [facility] ([facility]) Creatinine For GFR 0.85 mg/dL 0.55-1.30 [facility] ([facility]) Glomerular Filtration Rate Laboratory test result [facility] ([facility]) <content>Units are mL/min/1.73 m2</content>
<content></content>
<content>Chronic Kidney Disease Staging per NKF:</content>
<content></content>
<content>Stage I & II GFR >=60 Normal to Mildly Decreased</content>
<content>Stage III GFR 30- 59 Moderately Decreased</content>
<content>Stage IV GFR 15-29 Severely Decreased</content>
<content>Stage V GFR <15 Very Little GFR Left</content>
<content>ESRD GFR <15 on CEMENTER MACHINE APPLICATOR</content>
<content></content> Potassium Serum 4.6 meq/L 3.5-5.1 [facility] ([facility]) Sodium Level 139 meq/L 136-145 [facility] ([facility]) Carbon Dioxide Level 30 meq/L 21-32 [facility] Chloride Level 106 meq/L 98-107 [facility] ([facility] Calcium Level 9.1 mg/dL 8.8-10.2 [facility] ([facility]) Anion Gap 3 meq/L 8-16 [facility] Ast/Sgot 13 U/L 7-37 [facility] ([facility] Alkaline Phosphatase 142 U/L 45-117 [facility] ([facility] Alt/SGPT 16 U/L 12-78 [facility] ([facility] Total Protein 7.7 GM/DL 6.4-8.2 [facility] ([facility]) Bilirubin,Total 0.2 mg/dL 0.2-1.0 [facility] ([facility] Albumin 3.6 GM/DL 3.2-5.2 [facility] ([facility] Albumin/Globulin Ratio 0.9 1.2-2.2 [facility] ([facility]) ID Date Data Source [id number] 07/10/2020 08:17:00 PM EDT [facility] Name Value Range Interpretation Code Description Data Mitra rce(s) Supporting Document(s) SARS coronavirus 2 RNA [Presence] in Res piratory specimen by MICKIE with probe detection NEGATIVE [facility] This lab was ordered by [facility] a nd reported by [facility]. ID Date Data Source [id number] 07/10/2020 07:51:55 PM EDT [facility] Name Value Range Interpretation Code Description Data Mitra rce(s) Supporting Document(s) Progress Note [facility] OOLSMk1bGgCRWyXk57/JHOgnSWYsv9KxPIatDPq0GMouLTUqM9XaGHM6pH6sSGN3PTeQEwHlIcXrQmO0 lbm [file] AgICAgICAgICAgICAgICAgICAgICAgICAgICAgICAg ICAgICAgICAgICAgICAgICAgICAgICAgICAgICAgICAgICAgICANCiAgICAgICAgICAgICAgICAgICAg ICAgICAgICAgICAgICAgICAgICAgICAgICAgICAgICAgICAgICAgICAgICAgICAgICAgICAgICAgICAg ICAgICAgICAgICAgICAgICAgICANCiAgICAgICAgIC AgICAgICAgICAgICAgICAgICAgICAgICAgICAgICAgICAgICAgICAgICAgICAgICAgICAgICAgICAgIC AgICAgICAgICAgICAgICAgICAgICAgICAgICAgICANCiAgICAgICAgICAgICAgICAgICAgICAgICAgIC AgICAgICAgICAgICAgICAgICAgICAgICAgICAgICAg ICAgICAgICAgICAgICAgICAgICAgICAgICAgICAgICAgICAgICAgICANCiAgICAgICAgICAgICAgICAg ICAgICAgICAgICAgICAgICAgICAgICAgICAgICAgICAgICAgICAgICAgICAgICAgICAgICAgICAgICAg ICAgICAgICAgICAgICAgICAgICAgICANCiAgICAgIC AgICAgICAgICAgICAgICAgICAgICAgICAgICAgICAgICAgICAgICAgICAgICAgICAgICAgICAgICAgIC AgICAgICAgICAgICAgICAgICAgICAgICAgICAgICAgICANCiAgICAgICAgICAgICAgICAgICAgICAgIC AgICAgICAgICAgICAgICAgICAgICAgICAgICAgICAg ICAgICAgICAgICAgICAgICAgICAgICAgICAgICAgICAgICAgICAgICAgICANCiAgICAgICAgICAgICAg ICAgICAgICAgICAgICAgICAgICAgICAgICAgICAgICAgICAgICAgICAgICAgICAgICAgICAgICAgICAg ICAgICAgICAgICAgICAgICAgICAgICAgICANCiAgIC AgICAgICAgICAgICAgICAgICAgICAgICAgICAgICAgICAgICAgICAgICAgICAgICAgICAgICAgICAgIC AgICAgICAgICAgICAgICAgICAgICAgICAgICAgICAgICAgICANCiAgICAgICAgICAgICAgICAgICAgIC AgICAgICAgICAgICAgICAgICAgICAgICAgICAgICAg ICAgICAgICAgICAgICAgICAgICAgICAgICAgICAgICAgICAgICAgICAgICAgICANCjw/mOFlV8igkAAu qlM1J9ccEf9IMu4YWZ8ot3AiYKXnIQvxpaKePlcZArBdVSJjCfjITmj3QIvvSL0SwWLvI9FeS1FxZRij LO4CELGqFWHcuMQkDMFxNGWmRvY5WBYiZTkdCQ1NhD FcZIpaWMXgRWNdCO5OPMZpU987qaLmRS0WVi7LUnTuJL5mrx8XAWKnJRXfZwkORgg9ZLnhQD8JePIflH WmLRFqZBVRIiFrZ7nqy6BsXBLsARKGMOreJC5Xd2CuzCPgXWc+Wc7LRU3bc2TdDFbmMXIeFV2egz5EIV hRQaDmL4OvsZisPJHfk8maNHNdBS4zlNIkWBC2DNRw UAQ2DYJowFz0F2nhNRhrJl7wHOOjAp5eUJ1iJIBzZZE1MjNcWCZZKY1IGPSpLYXliHMtVRNwLAVGGO2R LWrzWVX0ASFtvuUtxQIrQFdmLZ7OHCUknnOwSIGgHTTELOg+Lv0ZBF6pk6UoNMqdXhHfCE4hyj5PKNmF OoWnR9N6zAFrU3A8TTonJo7THTUhBGLiINHmUMWPFA stIR4CMT5psyQ7ZM0DoQEsMRWfQHHvjUKhJQm9H05tkRCfSMvlCR1FCLB+Ketan+Pi2NAEMcREAxLXKcPq YvHCAEXpQlW7IkW8TBr9NcE7HoWI69jKtnkgMzQCugYO0WMJ0uMIEgPUJAAH0UhPSoqS6tgsGlMOOdWM YZZeSoZ19ydVMlDCSvCSBvYMTgGd5OQTTlW9WflzDn sLkxqcGqAKKeOLKTUU3AEJndvwSjaGOkcPwgUN73tXjgXG9CWj6NOxAdFS1bax4IxYXnIk0YJKOnFy1D DESeBZIaLCImYWP5FRRgIlBmFXpzPDVhQQSxXZO6GBZuPNXgLZ6NMfRsJSNnUCV3CtOyKQKcGNEwzy0T FOPlETWfTbD5MAMsTGPcNGYeIZuaXOOaPTIuOPK4DR JuPTTbPZ2QPaUfKGOzJPY1CdNzIKMnLXNjnt5MDVXaZSGvQvQvHUSwNGOwLKNcVKxeODQaMETqRHq6JE YsGBEnLB3ZImWuUWPkGTEbUUDlVHKpRAExmm4MZOMcSHUbGfO5GrUgEQAaWEBaIYqoVWAhFYB6ZqVmPY UnRROsRB2NTrXbTIOsPZP6TjJyUPLgVDDvhw6FQODv EMIgAEasXVHkYAVySDYqBCesWFPxPNS6GRE4UKViPUVeRS9FYxFjHFUiVLV9NWOvHADrNJRnxg9MRVWt RLJqAmWdNgXaMDKbMLCuZEouWBAbWNC9RjrzRIFrPBHyPY4SFyGgQBfhFPJEYij2DMjjP1u5WUOkDh0D W7Mal4MgKNIxHFRYIUqcNR1yxiOnKRRrHy4PJ4iVLa r4QDCtEGP8HSY3BiB5KWP2UbM6CEimJeShOuKwMaDtPS2sYJDzNKCrRUzjEfPoQHF8CbKrHpG8IEJcGv AtHrAiAIUkMmFqBK1HOq3UWvB4WZV3zVSoTe7DSzZgNp9FUTIAY0SMDj== ID Date Data Source [id number] 07/10/2020 01:37:00 PM EDT [facility] ([facility]) Name Value Range Interpretation Code Description Data Mitra rce(s) Supporting Document(s) Thyroid Stimulating Hormone 0.919 ME [facility] ([facility]) ID Date Data Source [id number] 07/10/2020 01:37:00 PM EDT [facility] ([facility]) Name Value Range Interpretation Code Description Data Mitra rce(s) Supporting Document(s) Sodium 138 [facility] ([facility]) Calcium [Mass/volume] in Serum or Plasma 9.3 [facility] ([facility]) Carbon dioxide, total [Moles/volume] in Serum or Plasma 27 [facility] ([facility]) Chloride [Moles/volume] in Serum or Plasma 105 [facility] ([facility]) Potassium [Moles/volume] in Serum or Plasma 3.7 [facility] ([facility]) Blood Urea Nitrogen 10 7-18 [facility] ([facility]) Glucose 104 70-100 [facility] ([facility]) Glomerular filtration rate/1.73 sq M.pre dicted [Volume Rate/Area] in Serum or Plasma by Creatinine-based formula (MDRD) Laboratory test result [facility] ([facility]) Creatinine 0.90 0.55-1.30 [facility] ([facility]) ID Date Data Source [id number] 07/10/2020 01:37:00 PM EDT [facility] ([facility]) Name Value Range Interpretation Code Description Data Mitra rce(s) Supporting Document(s) Red Blood Count 4.59 4.00-5.40 [facility] ([facility]) White Blood Count 13.6 4.0-10.0 [facility] ([facility]) Hematocrit 39.0 36.0-47.0 [facility] ([facility]) Platelets 401 150-450 [facility] ([facility]) Hemoglobin 12.4 12.0-15.5 [facility] ([facility]) ID Date Data Source [id number] 02/02/2020 12:15:00 PM EDT [facility] ([facility]) Name Value Range Interpretation Code Description Data Mitra rce(s) Supporting Document(s) ferritin 48 NG/mL 8-252 Ferritin [facility] ([facility]) ID Date Data Source [id number] 02/02/2020 12:15:00 PM EDT [facility] ([facility]) Name Value Range Interpretation Code Description Data Mitra rce(s) Supporting Document(s) total 25(oh) vitamin D 34.2 NG/mL 30.0-100.0 Total 25(Oh) Vitamin D [facility] ([facility]) ID Date Data Source [id number] 02/02/2020 12:15:00 [facility] Name Value Range Interpretation Code Description Data Mitra rce(s) Supporting Document(s) folate > 24.0 Folate [facility] ([facility]) vitamin B12 level 448 pg/mL Vitamin B12 Level [place] ([facility]) ID Date Data Source [id number] 02/02/2020 12:15:00 PM EDT [facility] ([facility]) Name Value Range Interpretation Code Description Data Mitra rce(s) Supporting Document(s) thyroid stimulating hormone 1.050 uIU/mL 0.358-3.740 Thyroid Stimulating Hormone [facility] ([facility]) ID Date Data Source [id number] 02/02/2020 12:15:00 PM EDT [facility] ([facility]) Name Value Range Interpretation Code Description Data Mitra rce(s) Supporting Document(s) total iron binding capacity 331 ug/dL 250-450 Total Ir on Binding Capacity [facility] ([facility]) percent saturation 16.6 % 13.2-45.0 Percent Saturatio n [facility] ([facility]) iron (fe) 55 ug/dL 50-170 Iron (Fe) [facility] ([facility]) ID Date Data Source [id number] 02/02/2020 12:15:00 PM EDT [facility] ([facility]) Name Value Range Interpretation Code Description Data Mitra rce(s) Supporting Document(s) triglycerides level 138 mg/dL <150 Triglycerides [place] [facility] ([facility]) Cholesterol in LDL [Mass/volume] in Serum or Plasma 98 mg/dL <1 00 LDL Cholesterol [facility] ([facility]) HDL cholesterol 60 mg/dL >40 HDL Cholesterol ATHE NA ([facility]) non-HDL-C 126 mg/dL Non-hdl-c [facility] ([facility]) cholesterol level 186 mg/dL <200 Cholesterol Level [facility] ([facility]) cholesterol risk ratio <5 Cholesterol R isk Ratio [facility] ([facility]) ID Date Data Source [id number] 02/02/2020 12:15:00 PM EDT [facility] ([facility]) Name Value Range Interpretation Code Description Data Mitra rce(s) Supporting Document(s) Hemoglobin A1c/Hemoglobin.total in Blood 5.4 % Hemoglobin a1C [facility] ([facility]) estimated average glucose 108 mg/dL 60-110 Estimated Average Glucose [facility] ([facility]) ID Date Data Source [id number] 02/02/2020 12:15:00 PM EDT [facility] ([facility]) Name Value Range Interpretation Code Description Data Mitra rce(s) Supporting Document(s) hemoglobin 14.0 g/dL 12.0-15.5 Hemoglobin [facility] ([facility]) red blood count 4.85 10 4.00-5.40 Red Blood Count [facility] NA ([facility]) white blood count 10.5 10 4.0-10.0 Above high normal White Blood Count [facility] ([facility]) mean corpuscular hemoglobin 28.9 pg 27.0-33.0 Mean Cor puscular Hemoglobin [facility] ([facility]) hematocrit 42.5 % 36.0-47.0 Hematocrit [facility] ([facility]) mean corpuscular volume 87.6 fL 80.0-96.0 Mean Corpusc ular Volume [facility] ([facility]) mean corpuscular HGB conc 32.9 g/dL 32.0-36.5 Mean Corpu scular HGB Conc [facility] ([facility]) mono % 6.5 % 0.0-5.0 Above high normal Placer % [facility] ([facility]) red cell distribution width 12.4 % 11.5-14.5 Red Cell Distribution Width [facility] ([facility]) platelet count, automated 172 10 150-450 Platelet C ount, Automated [facility] ([facility]) neutrophils % 64.4 % 36.0-66.0 Neutrophils % [place] ( [facility]) lymph % 28.6 % 24.0-44.0 Lymph % [place] ([facility]) immature granulocyte % 0.3 % 0-3.0 Immature Gran ulocyte % [place] ([facility]) nucleated red blood cell % 0.0 % 0-0 Nucleated Red Blood Cell % [facility] ([facility]) eos % 0.0 % 0.0-3.0 Eos % [facility] ([facility]) baso % 0.2 % 0.0-1.0 Baso % [facility] ([facility]) baso # 0.0 10 0.0-0.2 Baso # [facility] ([facility]) lymph # 3.0 10 1.5-5.0 Lymph # [place] ([facility]) neutrophils # 6.7 10 1.5-8.5 Neutrophils # [facility] ( [facility]) mono # 0.7 10 0.0-0.8 Placer # [facility] ([facility]) eos # 0.0 10 0.0-0.5 Eos # [facility] ([facility]) ID Date Data Source [id number] 02/02/2020 09:23:00 AM EDT [facility] ([facility]) Name Value Range Interpretation Code Description Data Mitra rce(s) Supporting Document(s) Iron 55 50-170 [facility] ([facility]) Iron binding capacity [Mass/volume] in Serum or Plasma 331 [facility] ([facility]) Tibc % Saturation 16.6 [facility] ([facility]) ID Date Data Source [id number] 02/02/2020 09:23:00 AM EDT [facility] ([facility]) Name Value Range Interpretation Code Description Data Mitra rce(s) Supporting Document(s) Cholesterol 186 [facility] ([facility]) Triglycerides 138 [facility] ([facility]) Cholesterol in LDL [Mass/volume] in Serum or Plasma by calculation 98 [facility] ([facility]) HDL 60 [facility] ([facility]) Chol/HDL Ratio 3.100 [facility] ([facility]) ID Date Data Source [id number] 02/02/2020 09:23:00 AM EDT [facility] ([facility]) Name Value Range Interpretation Code Description Data Mitra rce(s) Supporting Document(s) Red Blood Count 4.85 4.00-5.40 [facility] ([facility]) White Blood Count 10.5 4.0-10.0 [facility] ([facility]) Hemoglobin 14.0 12.0-15.5 [facility] ([facility]) Platelets 172 150-450 [facility] ([facility]) Hematocrit 42.5 36.0-47.0 [facility] ([facility]) ID Date Data Source [id number] 02/02/2020 09:23:00 AM EDT [facility] ([facility]) Name Value Range Interpretation Code Description Data Mitra rce(s) Supporting Document(s) Hemoglobin A1c/Hemoglobin.total in Blood 5.4 [facility] ([facility]) Procedure Social History Code Duration Value Status Description Data Source(s ) Smoking 01/24/2021 12:00:00 AM EDT Unknown if ever smoked comp leted Unknown if ever smoked [facility] ([facility]) Smoking 01/10/2021 12:00:00 AM EDT Unknown if ever smoked comp leted Unknown if ever smoked [facility] ([facility]) Smoking 12/25/2020 12:00:00 AM EDT Unknown if ever smoked comp leted Unknown if ever smoked [facility] ([facility]) Smoking 11/27/2020 12:00:00 AM EDT Unknown if ever smoked comp leted Unknown if ever smoked [facility] ([facility]) Smoking 11/21/2020 12:00:00 AM EDT Unknown if ever smoked comp leted Unknown if ever smoked [facility] ([facility]) Smoking 10/26/2020 12:00:00 AM EDT Unknown if ever smoked comp leted Unknown if ever smoked [facility] ([facility]) Smoking 09/29/2020 12:00:00 AM EDT Unknown if ever smoked comp leted Unknown if ever smoked [facility] ([facility]) Smoking 09/04/2020 12:00:00 AM EDT Patient is a former smoker completed Patient is a former smoker [facility] ([facility]) Smoking 09/01/2020 12:00:00 AM EDT Unknown if ever smoked comp leted Unknown if ever smoked [facility] ([facility]) Smoking 08/03/2020 12:00:00 AM EDT Unknown if ever smoked comp leted Unknown if ever smoked [facility] ([facility]) Smoking 07/10/2020 12:00:00 AM EDT Unknown if ever smoked comp leted Unknown if ever smoked [facility] ([facility]) Smoking 06/29/2020 12:00:00 AM EDT Unknown if ever smoked comp leted Unknown if ever smoked [facility] ([facility]) Smoking 05/31/2020 12:00:00 AM EST Unknown if ever smoked comp leted Unknown if ever smoked [facility] ([facility]) Smoking 05/25/2020 12:00:00 AM EST Unknown if ever smoked comp leted Unknown if ever smoked [facility] ([facility]) Smoking 05/19/2020 12:00:00 AM EST Unknown if ever smoked comp leted Unknown if ever smoked [facility] ([facility]) Smoking 05/09/2020 12:00:00 AM EST Unknown if ever smoked comp leted Unknown if ever smoked [facility] Smoking 05/04/2020 12:00:00 AM EST Unknown if ever smoked comp leted Unknown if ever smoked [facility] ([facility]) Smoking 05/01/2020 12:00:00 AM EST Unknown if ever smoked comp leted Unknown if ever smoked [facility] ([facility]) Smoking 04/24/2020 12:00:00 AM EST Unknown if ever smoked comp leted Unknown if ever smoked [facility] ([facility]) Smoking 04/20/2020 12:00:00 AM EST Unknown if ever smoked comp leted Unknown if ever smoked [facility] ([facility]) Smoking 04/03/2020 12:00:00 AM EST Unknown if ever smoked comp leted Unknown if ever smoked [facility] ([facility]) Smoking 03/31/2020 12:00:00 AM EST Unknown if ever smoked comp leted Unknown if ever smoked [facility] ([facility]) Smoking 03/29/2020 12:00:00 AM EST Unknown if ever smoked comp leted Unknown if ever smoked [facility] ([facility]) Smoking 03/21/2020 12:00:00 AM EST Unknown if ever smoked comp leted Unknown if ever smoked [facility] ([facility]) Smoking 02/24/2020 12:00:00 AM EST Unknown if ever smoked comp leted Unknown if ever smoked [facility] ([facility]) Smoking 02/22/2020 12:00:00 AM EST Unknown if ever smoked comp leted Unknown if ever smoked [facility] ([facility]) Smoking 01/27/2020 12:00:00 AM EDT Unknown if ever smoked comp leted Unknown if ever smoked [facility] ([facility]) Smoking 01/24/2020 12:00:00 AM EDT Unknown if ever smoked comp leted Unknown if ever smoked [facility] ([facility]) Smoking 01/03/2020 12:00:00 AM EDT Unknown if ever smoked comp leted Unknown if ever smoked [facility] ([facility]) Smoking 12/31/2019 12:00:00 AM EDT Unknown if ever smoked comp leted Unknown if ever smoked [facility] ([facility]) Smoking 12/30/2019 12:00:00 AM EDT Unknown if ever smoked comp leted Unknown if ever smoked [facility] ([facility]) Vital Signs ID Date Data Source [id number] Name Value Range Interpretation Code Description Data Source(s) Systolic blood pressure--standing 112 mm[Hg] 11 2 mm[Hg] [facility] ([facility]) Ra, large cuff Systolic blood pressure--sitting 116 mm[Hg] 116 mm[Hg] [facility] ([facility]) Ra, large cuff Diastolic blood pressure--standing 74 mm[Hg] 7 4 mm[Hg] [facility] ([facility]) Ra, large cuff Body weight 199.00 [lb_av] 199.00 [lb_av] [facility] T ([facility]) Body height 68 [in_i] 68 [in_i] [facility] ([facility]) 5'8" Body mass index (BMI) [Ratio] 30.3 kg/m2 30.3 k g/m2 [facility] ([facility]) Heart rate 66 /min 66 /min [facility] ([facility]) Diastolic blood pressure--sitting 74 mm[Hg] 74 mm[Hg] [facility] ([facility]) Ra, large cuff Systolic blood pressure--supine 120 mm[Hg] 120 mm[Hg] [facility] ([facility]) Ra, large cuff Diastolic blood pressure--supine 78 mm[Hg] 78 mm[Hg] [facility] ([facility]) Ra, large cuff Diastolic blood pressure 0 mm[Hg] Normal (applies to non-numeric results) 0 mm[Hg] [facility] ([facility]) Body height 0.00 in Normal (applies to non-numeric resu lts) [facility] Body weight Measured 0.00 lbs Normal (applies to n on-numeric results) 0.00 lbs [facility] ([facility]) Body mass index (BMI) [Ratio] 0.00 kg/m2 No rmal (applies to non-numeric results) 0.00 kg/m2 [facility] ([facility]) Systolic blood pressure 0 mm[Hg] Normal (applies t o non-numeric results) 0 mm[Hg] [facility] ([facility]) Body height 0.00 in Normal (applies to non-numeric resu lts) 0.00 in [facility] ([facility]) Body weight Measured 0.00 lbs Normal (applies to n on-numeric results) 0.00 lbs [facility] ([facility]) Body mass index (BMI) [Ratio] 0.00 kg/m2 No rmal (applies to non-numeric results) 0.00 kg/m2 [facility] ([facility]) Systolic blood pressure 0 mm[Hg] Normal (applies t o non-numeric results) 0 mm[Hg] [facility] ([facility]) Diastolic blood pressure 0 mm[Hg] Normal (applies to non-numeric results) 0 mm[Hg] [facility] ([facility]) Body height 68 [in_i] 68 [in_i] [place] ([facility]) Body height 0.00 in Normal (applies to non-numeric resu lts) 0.00 in [facility] ([facility]) Body weight Measured 0.00 lbs Normal (applies to n on-numeric results) 0.00 lbs [facility] ([facility]) Body mass index (BMI) [Ratio] 0.00 kg/m2 No rmal (applies to non-numeric results) 0.00 kg/m2 [facility] ([facility]) Systolic blood pressure 0 mm[Hg] Normal (applies t o non-numeric results) 0 mm[Hg] [facility] ([facility]) Diastolic blood pressure 0 mm[Hg] Normal (applies to non-numeric results) 0 mm[Hg] [facility] ([facility]) Diastolic blood pressure 83 mm[Hg] 83 mm[Hg] [facility] ([facility]) Body height 68 [in_i] 68 [in_i] [facility]) Body mass index (BMI) [Ratio] 31 kg/m2 31 kg/ m2 [facility] ([facility]) Systolic blood pressure 125 mm[Hg] 125 mm[Hg] [facility] ([facility]) Body weight 3264 [oz_av] 3264 [oz_av] [facility] ([facility]) Diastolic blood pressure 83 mm[Hg] 83 mm[Hg] [facility] ([facility]) Body height 68 [in_i] 68 [in_i] [facility] ([facility]) Body mass index (BMI) [Ratio] 31 kg/m2 31 kg/ m2 [facility] ([facility]) Systolic blood pressure 125 mm[Hg] 125 mm[Hg] A [facility] ([facility]) Body weight 3264 [oz_av] 3264 [oz_av] [facility] ([facility]) Body height 0.00 in Normal (applies to non-numeric resu lts) 0.00 in [facility] ([facility]) Body weight Measured 0.00 lbs Normal (applies to n on-numeric results) 0.00 lbs [facility] ([facility]) Body mass index (BMI) [Ratio] 0.00 kg/m2 No rmal (applies to non-numeric results) 0.00 kg/m2 [facility] ([facility]) Systolic blood pressure 0 mm[Hg] Normal (applies t o non-numeric results) 0 mm[Hg] [facility] ([facility]) Diastolic blood pressure 0 mm[Hg] Normal (applies to non-numeric results) 0 mm[Hg] [facility] ([facility]) ID Date Data Source [id number] 07/10/2020 07:51:55 PM [facility] Name Value Range Interpretation Code Description Data Source(s) TRANSFER FROM [facility] Patient Treatment Plan of Care Planned Activity Planned Date Details Description Data Source (s) vitamin d3 50 mcg (1999 ut) caps [place] ([facility]) vitamin d3 1000 unit caps A [facility] ([facility] Vitamin D3 25 Mcg CAP PO QAM [facility] ([facility]) Sulfamethoxazole 800 MG / Trimethoprim 160 MG Oral Tablet [facility] ([facility]) Sertraline 50 MG Oral Tablet [facility] ([facility]) Sertraline 25 MG Oral Tablet [facility] ([facility]) Sertraline 100 MG Oral Tablet [facility] ([facility]) Omeprazole 20 MG Delayed Release Oral Capsule [facility] ([facility]) Mirtazapine 7.5 MG Oral Tablet [facility] ([facility] Mirtazapine 30 MG Oral Tablet [facility] ([facility] Mirtazapine 15 MG Oral Tablet [facility] ([facility]) Lorazepam 1 MG Oral Tablet [facility] ([facility]) Levetiracetam 250 MG Oral Tablet [facility] ([facility]) Hydroxyzine Pamoate 25 MG Oral Capsule [facility] ([facility]) Hydroxyzine Hydrochloride 50 MG Oral Tablet [facility] ([facility]) Hydroxyzine Hydrochloride 25 MG Oral Tablet [facility] ([facility]) ferrous sulfate 325 MG TAB PO TID [facility] ([facility]) Escitalopram 20 MG Oral Tablet [facility] ([facility]) Cholecalciferol 2000 UNT Oral Capsule [facility] ([facility]) Cefuroxime 500 MG Oral Tablet [facility] ([facility]) buspirone hydrochloride 7.5 MG Oral Tablet [facility] ([facility]) Aristada Initio 675 mg/2.4 mL suspension, extend.rel. IM syringe [facility] ([facility]) Aristada 441 mg/1.6 mL suspension, extend.rel. IM syringe [facility] ([facility]) aripiprazole 10 MG Oral Tablet [facility] ([facility]) Amantadine Hydrochloride 100 MG Oral Capsule [facility] ([facility]) vitamin d3 50 mcg (2000 ut) caps [facility] ([facility]) vitamin d3 1000 unit caps [facility] ([facility]) Vitamin D3 25 Mcg CAP PO QAM [facility] ([facility] Sulfamethoxazole 800 MG / Trimethoprim 160 MG Oral Tablet [facility] ([facility]) Sertraline 50 MG Oral Tablet [facility] ([facility] Sertraline 25 MG Oral Tablet [facility] ([facility]) Sertraline 100 MG Oral Tablet [facility] ([facility] Mirtazapine 30 MG Oral Tablet [facility] ([facility]) Lorazepam 1 MG Oral Tablet [facility] ([facility]) Levetiracetam 250 MG Oral Tablet [facility] ([facility]) Hydroxyzine Pamoate 25 MG Oral Capsule [facility] ([facility]) Hydroxyzine Hydrochloride 50 MG Oral Tablet [facility] ([facility]) Hydroxyzine Hydrochloride 25 MG Oral Tablet [facility] ([facility]) ferrous sulfate 325 MG Delayed Release Oral Tablet [facility] ([facility]) ferrous sulfate 325 MG TAB PO TID [facility] ([facility]) Escitalopram 20 MG Oral Tablet [facility] ([facility]) Cefuroxime 500 MG Oral Tablet [facility] ([facility]) buspirone hydrochloride 7.5 MG Oral Tablet [facility] ([facility]) Aristada Initio 675 mg/2.4 mL suspension, extend.rel. IM syringe [facility] ([facility]) Aristada 441 mg/1.6 mL suspension, extend.rel. IM syringe [facility] ([facility]) aripiprazole 10 MG Oral Tablet [facility] ([facility]) Amantadine Hydrochloride 100 MG Oral Capsule [facility] ([facility])
--- OUTSIDE RECORDS SUMMARY | 2021-02-21 16:50 | CCD ---
Author Author [facility] Organization [facility] Address Unknown Phone Unavailable Care Team Providers Care Sewer Cleaner Name Role Phone Simon Travisley CASTINGS DRAFTER CASTINGS DRAFTER Unavailable Unavailable Burak, Alejandra CASTINGS DRAFTER CASTINGS DRAFTER Unavailable Unavailable Catherine Tejada Unavailable Do Iyer Unavailable Burak, A Alejandra CASTINGS DRAFTER Unavailable Unavailable Burak, A Alejandra CASTINGS DRAFTER Unavailable Unavailable Burak, A Alejandra CASTINGS DRAFTER Unavailable Unavailable Burak, A Alejandra CASTINGS DRAFTER Unavailable Unavailable Burak, A Alejandra CASTINGS DRAFTER Unavailable Unavailable Burak, A Alejandra CASTINGS DRAFTER Unavailable Unavailable Burak, A Alejandra CASTINGS DRAFTER Unavailable Unavailable Burak, A Alejandra CASTINGS DRAFTER Unavailable Unavailable Burak, A Alejandra CASTINGS DRAFTER Unavailable Unavailable Burak, A Alejandra CASTINGS DRAFTER Unavailable Unavailable Burak, A Alejandra CASTINGS DRAFTER Unavailable Unavailable Burak, A Alejandra CASTINGS DRAFTER Unavailable Unavailable Burak, A Alejandra CASTINGS DRAFTER Unavailable Unavailable [place], A Alejandra CASTINGS DRAFTER Unavailable Unavailable [place], A Alejandra CASTINGS DRAFTER Unavailable Unavailable [place], A Alejandra CASTINGS DRAFTER Unavailable Unavailable [place], A Alejandra CASTINGS DRAFTER Unavailable Unavailable [place], A Alejandra CASTINGS DRAFTER Unavailable Unavailable [place], A Alejandra CASTINGS DRAFTER Unavailable Unavailable [place], A Alejandra CASTINGS DRAFTER Unavailable Unavailable [place], A Alejandra CASTINGS DRAFTER Unavailable Unavailable [place], A Alejandra CASTINGS DRAFTER Unavailable Unavailable [place], A Alejandra CASTINGS DRAFTER Unavailable Unavailable [place], A Alejandra CASTINGS DRAFTER Unavailable Unavailable [place], A Alejandra CASTINGS DRAFTER Unavailable Unavailable [place], A Alejandra CASTINGS DRAFTER Unavailable Unavailable [place], A Alejandra CASTINGS DRAFTER Unavailable Unavailable [place], A Alejandra CASTINGS DRAFTER Unavailable Unavailable [place], A Alejandra CASTINGS DRAFTER Unavailable Unavailable [place], A Alejandra CASTINGS DRAFTER Unavailable Unavailable Burak, A Alejandra CASTINGS DRAFTER Unavailable Unavailable Scordo, M Hillary PA Unavailable [...] M Hillary PA Unavailable Unavailable Scordo, M Hillayr PA Unavailable Unavailable Scordo, M Hillary PA [...] , ORGANIZATION NPI Unavailable Unavailable MACQUEEN, REGINA CAMPAIGN COORDINATOR Unavailable Unavailable MACQUEEN, REGINA CAMPAIGN COORDINATOR Unavailable Unavailable MACQUEEN, REGINA CAMPAIGN COORDINATOR Unavailable Unavailable MACQUEEN, REGINA CAMPAIGN COORDINATOR Unavailable Unavailable MACQUEEN, REGINA CAMPAIGN COORDINATOR Unavailable Unavailable MACQUEEN, REGINA CAMPAIGN COORDINATOR Unavailable Unavailable MACQUEEN, REGINA CAMPAIGN COORDINATOR Unavailable Unavailable MACQUEEN, REGINA CAMPAIGN COORDINATOR Unavailable Unavailable MACQUEEN, REGINA CAMPAIGN COORDINATOR Unavailable Unavailable MACQUEEN, REGINA CAMPAIGN COORDINATOR Unavailable Unavailable SYSTEM, NOT IN PROVIDER Unavailable Unavailable Cumberland, K Sandra PMH-CAMPAIGN COORDINATOR Unavailable Unavailable [place], K Sandra PMH-CAMPAIGN COORDINATOR Unavailable Unavailable [place], K Sandra PMH-CAMPAIGN COORDINATOR Unavailable Unavailable Jimmie, K Sandra PMH-CAMPAIGN COORDINATOR Unavailable Unavailable Jimmie, K Sandra PMH-CAMPAIGN COORDINATOR Unavailable Unavailable [place], K Sandra PMH-CAMPAIGN COORDINATOR Unavailable Unavailable Jimmie, K Sandra PMH-CAMPAIGN COORDINATOR Unavailable Unavailable Jimmie, K Sandra PMH-CAMPAIGN COORDINATOR Unavailable Unavailable Travis, F Gemma CASTINGS DRAFTER-BC Unavailable Unavailable Travis, F Gemma CASTINGS DRAFTER-BC Unavailable Unavailable Travis, F Gemma CASTINGS DRAFTER-BC Unavailable Unavailable Travis, F Gemma CASTINGS DRAFTER-BC Unavailable Unavailable Travis, F Gemma CASTINGS DRAFTER-BC Unavailable Unavailable Travis, F Gemma CASTINGS DRAFTER-BC Unavailable Unavailable Travis, F Gemma CASTINGS DRAFTER-BC Unavailable Unavailable Travis, F Gemma CASTINGS DRAFTER-BC Unavailable Unavailable Travis, F Gemma CASTINGS DRAFTER-BC Unavailable Unavailable Travis, F Gemma CASTINGS DRAFTER-BC Unavailable Unavailable Travis, F Gemma CASTINGS DRAFTER-BC Unavailable Unavailable Travis, F Gemma CASTINGS DRAFTER-BC Unavailable Unavailable Travis, F Gemma CASTINGS DRAFTER-BC Unavailable Unavailable Travis, F Gemma CASTINGS DRAFTER-BC Unavailable Unavailable Travis, F Gemma CASTINGS DRAFTER-BC Unavailable Unavailable Travis, F Gemma CASTINGS DRAFTER-BC Unavailable Unavailable Travis, F Gemma CASTINGS DRAFTER-BC Unavailable Unavailable Travis, F Gemma CASTINGS DRAFTER-BC Unavailable Unavailable Travis, F Gemma CASTINGS DRAFTER-BC Unavailable Unavailable Travis, F Gemma CASTINGS DRAFTER-BC Unavailable Unavailable Travis, F Gemma CASTINGS DRAFTER-BC Unavailable Unavailable Thaddeus, Dixon Menendez CASTINGS DRAFTER-BC Unavailable Unavailable Dixon Travis CASTINGS DRAFTER-BC Unavailable Unavailable Re-disclosure Warning The records that [...] is protected by Article 27-F of the [facility] Public Health law. If you continue you may have access to information: Regarding HIV / AIDS; Provided by facilities licensed or operated by the [facility] Office of Mental Health; or Provided by the [facility] Office for People With Developmental Disabilities. If such information is present, then the following [facility] mandated warning applies: This information has [...] law may result in a fine or group home sentence or both. A general authorization for the release of medical or other information is NOT sufficient authorization for further disc losure. Allergies and Adverse Reactions Type Description Substance Reaction Status Data Source(s ) Propensity to adverse reactions to substance amantadine hcl Amantadine Hydrochloride 100 MG Oral Capsule Active [facility] ([facility] Family History Family Member Name Family Member Gender Family Member Status Date o f Status Description Data Source(s) Unknown Unknown Problem [facility] ([facility], ) 1 BROTHER Encounters Encounter Providers Location Date Indications Data Source(s ) Injectable Psychotropic Medication Administration (Inj ection Only) Attender: Xena Arambula [facility] 01/24/2021 02:30:00 AM EDT - 01/24/2021 02:30:00 AM EDT [facility] ([facility]) Attender: Xena Arambula 01/24/2021 12:00:00 AM EDT [facility] ([facility]) Brief Individual Psychotherapy - 30 min Attender: Do madrid [facility] 01/10/2021 12:30:00 PM EDT - 01/10/2021 12:30:00 PM EDT [facility] ([facility]) Attender: Do Iyer 01/10/2021 12:00:00 AM EDT [facility] ([facility]) Injectable Medication Administration w/ Monitoring & E ducation Attender: [facility] 12/25/2020 11:00:00 AM EDT - 12/25/2020 11:00:00 AM EDT [facility] ([facility]) Attender: Yohana Rahman 12/25/2020 12:00:00 AM EDT [facility] ([facility]) Injectable Medication Administration w/ Monitoring & E ducation [facility] 11/27/2020 11:30:00 AM EDT - 11/27/2020 11:30:00 AM EDT [facility] ([facility]) Attender: Yohana Rahman 11/27/2020 12:00:00 AM EDT [facility] ([facility]) Brief Individual Psychotherapy - 30 min Attender: Catherine mendes [facility] 11/21/2020 10:00:00 AM EDT - 11/21/2020 10:00:00 AM EDT [facility] ([facility]) Attender: Catherine Tejada 11/21/2020 12:00:0 0 AM EDT [facility] ([facility]) Injectable Medication Administration w/ Monitoring & E ducation Att[facility]: [facility] 10/26/2020 11:30:00 AM EDT - 10/26/2020 11:30:00 AM EDT [facility] ([facility]) Brief Individual Psychotherapy - 30 min Attender: Catherine mendes [facility] 10/26/2020 11:15:00 AM EDT - 10/26/2020 11:15:00 AM EDT [facility] ([facility]) Attender: Catherine Tejada 10/26/2020 12:00:0 0 AM EDT [facility] ([facility]) Attender: Yohana Rahman 10/26/2020 12:00:00 AM EDT [facility] ([facility]) Injectable Medication Administration w/ Monitoring & E ducation Attender: [facility] 09/29/2020 01:00:00 AM EDT - 09/29/2020 01:00:00 AM EDT [facility] ([facility]) Attender: Yohana Daleania 09/29/2020 12:00:00 AM EDT [facility] ([facility]) Outpatient Attender: ALEJANDRA CROOKS PA Main Office 09/04/2020 0 1:00:00 PM EDT [facility] ([facility]) Injectable Medication Administration w/ Monitoring & E ducation Attender: [facility] 09/01/2020 02:00:00 AM EDT - 09/01/2020 02:00:00 AM EDT [facility] ([facility]) Attender: Yohana Daleania 09/01/2020 12:00:00 AM EDT [facility] ([facility]) Injectable Medication Administration w/ Monitoring & E ducation Attender: [facility] 08/03/2020 03:00:00 AM EDT - 08/03/2020 03:00:00 AM EDT [facility] ([facility]) Extended Individual Psychotherapy - 45 min [facility] 08/03/2020 02:00:00 AM EDT - 08/03/2020 02:00:00 AM EDT [facility] ([facility]) Attender: Yohana Rahman 08/03/2020 12:00:00 AM EDT [facility] ([facility]) Attender: Catherine Tejada 08/03/2020 12:00:0 0 AM EDT [facility] ([facility]) Outpatient Referrer: PROVIDER SYSTEM [address] [place] [address] 07/10/2020 07:5 0:00 PM EDT schizoaffective, SI, paranoid [facility] schizoaffective, SI, paranoid Injectable Psychotropic Medication Administration (Inj ection Only) Attender: Xena Arambula [facility] 07/10/2020 02:00:00 AM EDT - 07/10/2020 02:00:00 AM EDT [facility] ([facility]) Brief Individual Psychotherapy - 30 min Attender: Catherine mendes [facility] 07/10/2020 01:30:00 AM EDT - 07/10/2020 01:30:00 AM EDT [facility] ([facility]) Attender: Catherine Tejada 07/10/2020 12:00:0 0 AM EDT [facility] ([facility]) Attender: Xena Arambula 07/10/2020 12:00:00 AM EDT [facility] ([facility]) Attender: Acacia William 06/29/2020 12:00:00 AM EDT [facility] ([facility]) Injectable Psychotropic Medication Administration (Inj ection Only) Attender: Acacia SantiagoRaul [facility] 06/28/2020 01:00:00 AM EDT - 06/28/2020 01:00:00 AM EDT [facility] ([facility]) Injectable Psychotropic Medication Administration (Inj ection Only) Attender: Acacia William [facility] 05/31/2020 09:30:00 AM EST - 05/31/2020 09:30:00 AM EST [facility] ([facility]) Outpatient Attender: Sandra Samuel [facility]-CAMPAIGN COORDINATOR [facility] 05/31/2020 08:45:00 AM EST - 05/31/2020 08:45:00 AM EST [facility] ([facility]) Attender: Sandra WEIRCYNTHIA 05/31/2020 12: 00:00 AM EST [facility] ([facility]) Attender: Acacia William 05/31/2020 12:00:00 AM EST [facility] ([facility]) [facility] 05/25/2020 11:00:00 AM EST - 05/25/2020 11:00:00 AM EST [facility] ([facility]) Attender: Sandra WEIRCYNTHIA 05/25/2020 12: 00:00 AM EST [facility] ([facility]) Extended Individual Psychotherapy - 45 min Att[facility]: [facility] 05/19/2020 01:45:00 AM EST - 05/19/2020 01:45:00 AM EST [facility] ([facility]) Attender: Catherine Tejada 05/19/2020 12:00:0 0 AM EST [facility] ([facility]) Extended Individual Psychotherapy - 45 min Attender: Lorraine muller [facility] 05/09/2020 10:45:00 AM EST - 05/09/2020 10:45:00 AM EST [facility] ([facility]) Attender: Catherine Tejada 05/09/2020 12:00:0 0 AM EST [facility] ([facility]) Injectable Medication Administration w/ Monitoring & E ducation Attender: ORGANIZATION NPI ALIASES [facility] 05/04/2020 09:00: 00 AM EST - 05/04/2020 09:00:00 AM EST [facility] ([facility]) Outpatient Attender: REGINA PITTMAN NP [facility] rosalva 05/04/2020 03:00:00 AM EST - 05/04/2020 03:00:00 AM EST [facility] ([facility]) Attender: ORGANIZATION NPI ALIASES * 05/04/2020 12:00:00 AM EST [facility] ([facility]) Attender: REGINA PITTMAN NP 05/04/2020 12:00:00 AM EST [facility] ([facility]) Injectable Psychotropic Medication Administration (Inj ection Only) Attender: ORGANIZATION NPI ALIASES [facility] 05/01/2020 09:00: 00 AM EST - 05/01/2020 09:00:00 AM EST [facility] ([facility]) Attender: ORGANIZATION NPI ALIASES * 05/01/2020 12:00:00 AM EST [facility] ([facility]) Extended Individual Psychotherapy - 45 min [facility] 11:30:00 AM EST - 04/24/2020 11:30:00 AM EST [facility] ([facility]) Attender: Catherine Tejada 04/24/2020 12:00:0 0 AM EST [facility] ([facility]) [facility] 04/20/2020 09:00:00 AM EST - 04/20/2020 09:00:00 AM EST [facility] ([facility]) Outpatient Attender: Sandra WEIRCYNTHIA [facility] 04/20/2020 09:00:00 AM EST - 04/20/2020 09:00:00 AM EST [facility] ([facility]) Attender: Sandra HANNA 04/20/2020 12: 00:00 AM EST [facility] ([facility]) Hillary Jarrett PA-C: [address] [place] [phone], Ph. Attender: Hillary COY [facility] - [facility] Medical 04/19/2020 12:00:00 AM EST [facility] ([facility]) Injectable Psychotropic Medication Administration (Inj ection Only) [facility] 04/03/2020 11:30:00 AM EST - 04/03/2020 11:30:00 AM EST [facility] ([facility]) [facility]: [facility] 04/03/2020 12:00:00 AM EST [facility] ([facility]) Injectable Psychotropic Medication Administration (Inj ection Only) [facility] 03/31/2020 10:00:00 AM EST - 03/31/2020 10:00:00 AM EST [facility] ([facility]) [facility]: [facility] 03/31/2020 12:00:00 AM EST [facility] ([facility]) Outpatient Attender: Sandra Samuel [facility] 03/29/2020 09:30:00 AM EST - 03/29/2020 09:30:00 AM EST [facility] ([facility]) Attender: Sandra Samuel [facility]-CAMPAIGN COORDINATOR 03/29/2020 12: 00:00 AM EST [facility] ([facility]) Extended Individual Psychotherapy - 45 min Attender: Lorraine Tejada [facility] 03/21/2020 10:45:00 AM EST - 03/21/2020 10:45:00 AM EST [facility] ([facility]) Attender: Catherine Tejada 03/21/2020 12:00:0 0 AM EST [facility] ([facility]) Outpatient Attender: Sandra Samuel [facility]-CAMPAIGN COORDINATOR [facility] 02/24/2020 11:30:00 AM EST - 02/24/2020 11:30:00 AM EST [facility] ([facility]) Attender: Sandra Samuel [facility]-CAMPAIGN COORDINATOR 02/24/2020 12: 00:00 AM EST [facility] ([facility]) TEMPMHCTelemed 30" Psychotherapy Attender: Catherine thurman [facility] 02/22/2020 11:45:00 AM EST - 02/22/2020 11:45:00 AM EST [facility] ([facility]) Attender: Catherine Tejada 02/22/2020 12:00:0 0 AM EST [facility] ([facility]) Hillary Jarrett PA-C: [address], [place] [address], Ph. Attender: Hillary COY [facility] Medical 02/02/2020 12:00:00 AM EDT [facility] ([facility]) Hillary Jarrett PA-C: [address], [place] [address], Ph. Attender: Hillary COY [facility] Medical 02/02/2020 12:00:00 AM EDT [facility] ([facility]) Outpatient Attender: Alejandra MCCOLULM FP 01/29/2020 08:4 3:59 PM EDT [facility] TEMPMHCTelemed 30" Psychotherapy Attender: Catherine thurman [facility] 01/27/2020 09:45:00 AM EDT - 01/27/2020 09:45:00 AM EDT [facility] ([facility]) Attender: Catherine Tejada 01/27/2020 12:00:0 0 AM EDT [facility] ([facility]) Outpatient Attender: VEDA MCCOLLUM FP 01/26/2020 09:39:01 A M EDT [facility] Outpatient Attender: Sandra Samuel [facility]-CAMPAIGN COORDINATOR [facility] 01/24/2020 01:00:00 AM EDT - 01/24/2020 01:00:00 AM EDT [facility] ([facility]) Attender: Sandra Samuel [facility]-CAMPAIGN COORDINATOR 01/24/2020 12: 00:00 AM EDT [facility] ([facility]) Outpatient Attender: VEDA MCCOLLUM 01/04/2020 11:24:00 A M EDT [facility] Injectable Medication Administration w/ Monitoring & E ducation Attender: Veronica Flores [facility] 01/03/2020 10:30:00 AM EDT - 01/03/2020 10:30:00 AM EDT [facility] Outpatient Attender: FREIDA CHOWDARY MD [facility] 01/03/2020 10:15:00 AM EDT - 01/03/2020 10:15:00 AM EDT [facility] ([facility]) Attender: FREIDA CHOWDARY MD 01/03/2020 12:00:00 A M EDT [facility] ([facility]) Attender: Veronica Flores 01/03/2020 12:00:00 AM EDT [facility] ([facility]) Outpatient Attender: OLAF ARRIOLA MD 01/03/2020 12:00:0 0 AM [facility] Injectable Medication Administration w/ Monitoring & E ducation Attender: Veronica Flores [facility] 12/31/2019 09:30:00 AM EDT - 12/31/2019 09:30:00 AM EDT [facility] ([facility]) Outpatient Attender: VEDA MCKEON 12/31/2019 07:43:01 A M EDT [facility] Attender: Veronica Flores 12/31/2019 12:00:00 AM EDT [facility] ([facility]) Outpatient Attender: VEDA MCKEON 12/30/2019 11:52:00 AM EDT [facility] Injectable Medication Administration w/ Monitoring & E ducation Attender: Veronica Flores [facility] 12/30/2019 09:30:00 AM EDT - 12/30/2019 09:30:00 AM EDT [facility] ([facility]) Attender: Veronica Flores 12/30/2019 12:00:00 AM [facility]: Gemma Travis CASTINGS DRAFTER-BC FP 12/26/2019 10: 59:00 AM EDT [facility] Outpatient 109 [facility] [id number] Integration Team 10/28/2016 02:30:00 PM EDT - 01/24/2021 12:00:00 PM EDT [facility] ([facility]) Patient discharged. Functional Status Immunizations Vaccine Date Status Description Data Source(s) COVID-19 VACCINE Sharla 09/07/2020 12:00:00 AM EDT completed [employer] Vaccine Series Complete: YESThis Data wa s Submitted to [facility] [employer]. Medications Medication Brand Name Start Date Product Form Dose Route Admi nistrative Instructions Pharmacy Instructions Status Indications Reaction Description Data Source(s) ferrous sulfate 325 MG Oral Tablet Ferrous Sulfate 09/03/2020 12:00 :00 AM EDT ORAL active [facility] ([facility] buspirone hydrochloride 7.5 MG Oral Tablet Buspirone HCL 09/03/2020 12:00:00 AM EDT ORAL active [facility] ([facility]) Mirtazapine 15 MG Oral Tablet Mirtazapine 09/03/2020 12:00:00 AM EDT ORAL active [facility] ([facility]) Sertraline 25 MG Oral Tablet Sertraline HCL 09/03/2020 12:00:00 AM EDT ORAL active [facility] Sertraline 100 MG Oral Tablet Sertraline HCL 09/03/2020 12:00:00 AM E DT ORAL active [facility] ([facility]) Aristada Aristada 09/03/2020 12:00:00 AM EDT activ e [facility] ([facility]) Cholecalciferol 1000 UNT Oral Tablet Vitamin D3 09/03/2020 12:00:00 A M EDT ORAL active [facility] ([facility]) Sertraline 25 MG Oral Tablet sertraline 08/23/2020 12:00:00 AM EDT 25 mg by mouth completed <td ID="Medica tionRxNorm_5">638882</td><td ID="MedicationMedication_5">sertraline</td><td ID="MedicationRoute_5">by mouth</td><td ID="MedicationRouteConcept_5">U88143</td><td ID="MedicationStartDate_5">08/23/2020</td><td ID="MedicationStopDate_5">10/22/2020</td><td ID="MedicationDosageFrequency_5">once a day</td><td ID="MedicationDuration_5">30</td><td ID="MedicationFormulaStrength_5">25 mg</td><td ID="MedicationDosageForm_5">tablet</td><td ID="MedicationDosageFormCode_5"></td><td ID="MedicationDosageDescription_5"></td><td ID="MedicationMedicationId_5">[id number]</td><td ID="MedicationAccount_5">[id number]</td><td ID="MedicationNpid_5">[id number]</td><td ID="MedicationAuthorFirstName_5">Sandra</td><td ID="MedicationAuthorLastName_5">Jimmie</td><td ID="MedicationTaxonomyCode_5">[id number]</td><td ID="MedicationTaxonomyDesc_5">Psychiatric/Mental Health</td><td ID="MedicationPhoneNumber_5">[phone]</td> [facility] ([facility]) Sertraline 100 MG Oral Tablet sertraline 08/23/2020 12:00:00 AM EDT 100 mg by mouth completed <td ID="Medica tionRxNorm_3">[id number]</td><td ID="MedicationMedication_3">sertraline</td><td ID="MedicationRoute_3">by mouth</td><td ID="MedicationRouteConcept_3">G47685</td><td ID="MedicationStartDate_3">08/23/2020</td><td ID="MedicationStopDate_3"></td><td ID="MedicationDosageFrequency_3">once a day</td><td ID="MedicationDuration_3"></td><td ID="MedicationFormulaStrength_3">100 mg</td><td ID="MedicationDosageForm_3">tablet</td><td ID="MedicationDosageFormCode_3"></td><td ID="MedicationDosageDescription_3"></td><td ID="MedicationMedicationId_3">[id number]</td><td ID="MedicationAccount_3">[id number]</td><td ID="MedicationNpid_3">[id number]</td><td ID="MedicationAuthorFirstName_3">Zurdo</td><td ID="MedicationAuthorLastName_3">Valencia</td><td ID="MedicationTaxonomyCode_3">[id number]</td><td ID="MedicationTaxonomyDesc_3">Nurse Practitioner</td><td ID="MedicationPhoneNumber_3">[phone]</td> [facility] ([facility]) Sertraline 100 MG Oral Tablet sertraline 08/23/2020 12:00:00 AM EDT 100 mg by mouth completed <td ID="Medica tionRxNorm_2">[id number]</td><td ID="MedicationMedication_2">sertraline</td><td ID="MedicationRoute_2">by mouth</td><td ID="MedicationRouteConcept_2">W80380</td><td ID="MedicationStartDate_2">08/23/2020</td><td ID="MedicationStopDate_2"></td><td ID="MedicationDosageFrequency_2">once a day</td><td ID="MedicationDuration_2"></td><td ID="MedicationFormulaStrength_2">100 mg</td><td ID="MedicationDosageForm_2">tablet</td><td ID="MedicationDosageFormCode_2"></td><td ID="MedicationDosageDescription_2"></td><td ID="MedicationMedicationId_2">[id number]</td><td ID="MedicationAccount_2">[id number]</td><td ID="MedicationNpid_2">[id number]</td><td ID="MedicationAuthorFirstName_2">Zurdo</td><td ID="MedicationAuthorLastName_2">Valencia</td><td ID="MedicationTaxonomyCode_2">[id number]</td><td ID="MedicationTaxonomyDesc_2">Nurse Practitioner</td><td ID="MedicationPhoneNumber_2">[phone]</td> [facility] ([facility]) Mirtazapine 15 MG Oral Tablet mirtazapine 08/23/2020 12:00:00 AM EDT 15 mg by mouth completed <td ID="Medica tionRxNorm_1">177827</td><td ID="MedicationMedication_1">mirtazapine</td><td ID="MedicationRoute_1">by mouth</td><td ID="MedicationRouteConcept_1">M67649</td><td ID="MedicationStartDate_1">08/23/2020</td><td ID="MedicationStopDate_1"></td><td ID="MedicationDosageFrequency_1">every night</td><td ID="MedicationDuration_1"></td><td ID="MedicationFormulaStrength_1">15 mg</td><td ID="MedicationDosageForm_1">tablet</td><td ID="MedicationDosageFormCode_1"></td><td ID="MedicationDosageDescription_1"></td><td ID="MedicationMedicationId_1">[id number]</td><td ID="MedicationAccount_1">[id number]</td><td ID="MedicationNpid_1">[id number]</td><td ID="MedicationAuthorFirstName_1">Zurdo</td><td ID="MedicationAuthorLastName_1">Valencia</td><td ID="MedicationTaxonomyCode_1">[id number]</td><td ID="MedicationTaxonomyDesc_1">Nurse Practitioner</td><td ID="MedicationPhoneNumber_1">[phone]</td> [facility] ([facility]) Mirtazapine 15 MG Oral Tablet mirtazapine 08/23/2020 12:00:00 AM EDT 15 mg by mouth completed <td ID="Medica tionRxNorm_3">401755</td><td ID="MedicationMedication_3">mirtazapine</td><td ID="MedicationRoute_3">by mouth</td><td ID="MedicationRouteConcept_3">F26695</td><td ID="MedicationStartDate_3">08/23/2020</td><td ID="MedicationStopDate_3"></td><td ID="MedicationDosageFrequency_3">every night</td><td ID="MedicationDuration_3"></td><td ID="MedicationFormulaStrength_3">15 mg</td><td ID="MedicationDosageForm_3">tablet</td><td ID="MedicationDosageFormCode_3"></td><td ID="MedicationDosageDescription_3"></td><td ID="MedicationMedicationId_3">[id number]</td><td ID="MedicationAccount_3">[id number]</td><td ID="MedicationNpid_3">[id number]</td><td ID="MedicationAuthorFirstName_3">Zurdo</td><td ID="MedicationAuthorLastName_3">Valencia</td><td ID="MedicationTaxonomyCode_3">[id number]</td><td ID="MedicationTaxonomyDesc_3">Nurse Practitioner</td><td ID="MedicationPhoneNumber_3">[phone]</td> [facility] ([facility]) buspirone hydrochloride 7.5 MG Oral Tablet buspirone 08/23 12:00:00 AM EDT 7.5 mg by mouth completed <td ID="Medic ationRxNorm_2">384434</td><td ID="MedicationMedication_2">buspirone</td><td ID="MedicationRoute_2">by mouth</td><td ID="MedicationRouteConcept_2">M92117</td><td ID="MedicationStartDate_2">08/23/2020</td><td ID="MedicationStopDate_2"></td><td ID="MedicationDosageFrequency_2">twice a day</td><td ID="MedicationDuration_2"></td><td ID="MedicationFormulaStrength_2">7.5 mg</td><td ID="MedicationDosageForm_2">tablet</td><td ID="MedicationDosageFormCode_2"></td><td ID="MedicationDosageDescription_2"></td><td ID="MedicationMedicationId_2">[id number]</td><td ID="MedicationAccount_2">[id number]</td><td ID="MedicationNpid_2">[id number]</td><td ID="MedicationAuthorFirstName_2">Zurdo</td><td ID="MedicationAuthorLastName_2">Valencia</td><td ID="MedicationTaxonomyCode_2">[id number]</td><td ID="MedicationTaxonomyDesc_2">Nurse Practitioner</td><td ID="MedicationPhoneNumber_2">[phone]</td> [facility] ([facility]) buspirone hydrochloride 7.5 MG Oral Tablet buspirone 08/23 12:00:00 AM EDT 7.5 mg by mouth completed <td ID="Medic ationRxNorm_4">235859</td><td ID="MedicationMedication_4">buspirone</td><td ID="MedicationRoute_4">by mouth</td><td ID="MedicationRouteConcept_4">P27068</td><td ID="MedicationStartDate_4">08/23/2020</td><td ID="MedicationStopDate_4"></td><td ID="MedicationDosageFrequency_4">twice a day</td><td ID="MedicationDuration_4"></td><td ID="MedicationFormulaStrength_4">7.5 mg</td><td ID="MedicationDosageForm_4">tablet</td><td ID="MedicationDosageFormCode_4"></td><td ID="MedicationDosageDescription_4"></td><td ID="MedicationMedicationId_4">[id number]</td><td ID="MedicationAccount_4">[id number]</td><td ID="MedicationNpid_4">[id number]</td><td ID="MedicationAuthorFirstName_4">Zurdo</td><td ID="MedicationAuthorLastName_4">Valencia</td><td ID="MedicationTaxonomyCode_4">[id number]</td><td ID="MedicationTaxonomyDesc_4">Nurse Practitioner</td><td ID="MedicationPhoneNumber_4">[phone]</td> [facility] ([facility]) montelukast 10 MG Oral Tablet MONTELUKAST SODIUM [...] ONCE A MONTH FOR PSYCHOSIS SOLD: 07/31/2020 [facility] atorvastatin 20 MG Oral Tablet ATORVASTATIN CALCIUM 07/31/2020 1 2:00:00 AM EDT tablet 30 TAKE ONE TABLET BY MOUTH EVERY D AY FOR CHOLESTEROL TAKE ONE TABLET BY MOUTH EVERY DAY FOR CHOLESTEROL SOLD: 07/31/2020 [facility] 1,000 mg 07/31/2020 12:00:00 AM EDT tablet 60 TAKE ONE TABLET BY MOUTH TWICE A DAY AT 8:00AM AND 8:00PM TAKE ONE TABLET BY MOUTH TWICE A DAY AT 8:00AM AND 8:00PM SOLD: 07/31/2020 [facility] 100 mg 07/31/2020 12:00:00 AM EDT tablet 30 TAKE ONE TABLET BY MOUTH EVERY DAY TAKE ONE TABLET BY MOUTH EVERY DAY SOLD: 07/31/2020 [facility] 5 mg 07/31/2020 12:00:00 AM EDT tablet,delayed release (DR/EC) 14 TAKE ONE TABLET BY MOUTH EVERY DAY NEEDED FOR CONSTIPATION TAKE ONE TABLET BY MOUTH EVERY DAY NEEDED FOR CONSTIPATION SOLD: 07/31/2020 [facility] Aristada Aristada 07/31/2020 12:00:00 AM EDT 662 mg/2.4 completed <td ID="MedicationRxNorm_1">[id number]</td><td ID="MedicationMedication_1">Aristada</td><td ID="MedicationRoute_1">intramuscularly</td><td ID="MedicationRouteConcept_1"></td><td ID="MedicationStartDate_1">07/31/2020</td><td ID="MedicationStopDate_1"></td><td ID="MedicationDosageFrequency_1">every four weeks</td><td ID="MedicationDuration_1"></td><td ID="MedicationFormulaStrength_1">662 mg/2.4 mL</td><td ID="MedicationDosageForm_1">suspension,extended rel syring</td><td ID="MedicationDosageFormCode_1"></td><td ID="MedicationDosageDescription_1">as directed</td><td ID="MedicationMedicationId_1">[id number]</td><td ID="MedicationAccount_1">[id number]</td><td ID="MedicationNpid_1">[id number]</td><td ID="MedicationAuthorFirstName_1">Naveen</td><td ID="MedicationAuthorLastName_1">Oscar</td><td ID="MedicationTaxonomyCode_1">[id number]</td><td ID="MedicationTaxonomyDesc_1"> Nurse Practitioner</td><td ID="MedicationPhoneNumber_1">[phone]</td> [facility] ([facility]) Nystatin 100 UNT/MG Topical Powder 100,000 unit/gram [...] 12:00:00 AM EDT 662 mg/2.4 completed <td ID="MedicationRxNorm_4">7023760</td><td ID="MedicationMedication_4">Aristada</td><td ID="MedicationRoute_4">intramuscularly</td><td ID="MedicationRouteConcept_4"></td><td ID="MedicationStartDate_4">07/31/2020</td><td ID="MedicationStopDate_4"></td><td ID="MedicationDosageFrequency_4">every four weeks</td><td ID="MedicationDuration_4"></td><td ID="MedicationFormulaStrength_4">662 mg/2.4 mL</td><td ID="MedicationDosageForm_4">suspension,extended rel syring</td><td ID="MedicationDosageFormCode_4"></td><td ID="MedicationDosageDescription_4">as directed</td><td ID="MedicationMedicationId_4">[id number]</td><td ID="MedicationAccount_4">[id number]</td><td ID="MedicationNpid_4">[id number]</td><td ID="MedicationAuthorFirstName_4">Naveen</td><td ID="MedicationAuthorLastName_4">Oscar</td><td ID="MedicationTaxonomyCode_4">[id number]</td><td ID="MedicationTaxonomyDesc_4"> Nurse Practitioner</td><td ID="MedicationPhoneNumber_4">[phone]</td> [facility] ([facility] 100 mg 07/31/2020 12:00:00 AM EDT [...] 10 mg by mouth completed <td ID="Medica tionRxNorm_4">124934</td><td ID="MedicationMedication_4">aripiprazole</td><td ID="MedicationRoute_4">by mouth</td><td ID="MedicationRouteConcept_4">G77106</td><td ID="MedicationStartDate_4">07/10/2020</td><td ID="MedicationStopDate_4"></td><td ID="MedicationDosageFrequency_4">as directed</td><td ID="MedicationDuration_4"></td><td ID="MedicationFormulaStrength_4">10 mg</td><td ID="MedicationDosageForm_4">tablet</td><td ID="MedicationDosageFormCode_4"></td><td ID="MedicationDosageDescription_4"></td><td ID="MedicationMedicationId_4">[id number]</td><td ID="MedicationAccount_4">[id number]</td><td ID="MedicationNpid_4">[id number]</td><td ID="MedicationAuthorFirstName_4">Sandra</td><td ID="MedicationAuthorLastName_4">Jimmie</td><td ID="MedicationTaxonomyCode_4">[id number]</td><td ID="MedicationTaxonomyDesc_4">Psychiatric/Mental Health</td><td ID="MedicationPhoneNumber_4">[phone]</td> [facility] ([facility]) Sertraline 100 MG Oral Tablet sertraline 02/24/2020 12:00:00 AM EST 100 mg completed <td ID="Medicat ionRxNorm_6">232805</td><td ID="MedicationMedication_6">sertraline</td><td ID="MedicationRoute_6"></td><td ID="MedicationRouteConcept_6"></td><td ID="MedicationStartDate_6">02/24/2020</td><td ID="MedicationStopDate_6">02/24/2020</td><td ID="MedicationDosageFrequency_6"></td><td ID="MedicationDuration_6"></td><td ID="MedicationFormulaStrength_6">100 mg</td><td ID="MedicationDosageForm_6">tablet</td><td ID="MedicationDosageFormCode_6"></td><td ID="MedicationDosageDescription_6"></td><td ID="MedicationMedicationId_6">[id number]</td><td ID="MedicationAccount_6">[id number]</td><td ID="MedicationNpid_6"></td><td ID="MedicationAuthorFirstName_6"></td><td ID="MedicationAuthorLastName_6"></td><td ID="MedicationTaxonomyCode_6"></td><td ID="MedicationTaxonomyDesc_6"></td><td ID="MedicationPhoneNumber_6"></td> [facility] ([facility]) Lorazepam 0.5 MG Oral Tablet lorazepam 02/24/2020 12:00:00 AM EST 0.5 mg by mouth completed <td ID="Medica tionRxNorm_4">734950</td><td ID="MedicationMedication_4">lorazepam</td><td ID="MedicationRoute_4">by mouth</td><td ID="MedicationRouteConcept_4">J82023</td><td ID="MedicationStartDate_4">02/24/2020</td><td ID="MedicationStopDate_4"></td><td ID="MedicationDosageFrequency_4"></td><td ID="MedicationDuration_4"></td><td ID="MedicationFormulaStrength_4">0.5 mg</td><td ID="MedicationDosageForm_4">tablet</td><td ID="MedicationDosageFormCode_4"></td><td ID="MedicationDosageDescription_4">as directed</td><td ID="MedicationMedicationId_4">[id number]</td><td ID="MedicationAccount_4">[id number]</td><td ID="MedicationNpid_4">[id number]</td><td ID="MedicationAuthorFirstName_4">Sandra</td><td ID="MedicationAuthorLastName_4">[place]</td><td ID="MedicationTaxonomyCode_4">[id number]</td><td ID="MedicationTaxonomyDesc_4">Psychiatric/Mental Health</td><td ID="MedicationPhoneNumber_4">[phone]</td> [facility] ([facility]) Mirtazapine 15 MG Oral Tablet mirtazapine 02/24/2020 12:00:00 AM EST 15 mg completed <td ID="Medicat ionRxNorm_5">306901</td><td ID="MedicationMedication_5">mirtazapine</td><td ID="MedicationRoute_5"></td><td ID="MedicationRouteConcept_5"></td><td ID="MedicationStartDate_5">02/24/2020</td><td ID="MedicationStopDate_5">02/24/2020</td><td ID="MedicationDosageFrequency_5"></td><td ID="MedicationDuration_5"></td><td ID="MedicationFormulaStrength_5">15 mg</td><td ID="MedicationDosageForm_5">tablet</td><td ID="MedicationDosageFormCode_5"></td><td ID="MedicationDosageDescription_5"></td><td ID="MedicationMedicationId_5">[id number]</td><td ID="MedicationAccount_5">[id number]</td><td ID="MedicationNpid_5"></td><td ID="MedicationAuthorFirstName_5"></td><td ID="MedicationAuthorLastName_5"></td><td ID="MedicationTaxonomyCode_5"></td><td ID="MedicationTaxonomyDesc_5"></td><td ID="MedicationPhoneNumber_5"></td> [facility] ([facility]) Sertraline 50 MG Oral Tablet sertraline 50 mg tablet Take 1 tablet every day by oral route. sertraline 50 mg tablet Take 1 tablet every day by oral route. 1 completed sertraline 50 MG Oral Tablet [facility] ([facility]) Sertraline 25 MG Oral Tablet sertraline 25 mg tablet Take 1 tablet every day by oral route in the morning. sertraline 25 mg tablet Take 1 tablet ev gretta day by oral route in the morning. 1 completed sertraline 25 MG Oral Tablet [facility] ([facility]) Vitamin D3 25 Mcg CAP PO QAM completed Vitamin D3 [facility] ([facility]) Levetiracetam 250 MG Oral Tablet levetiracetam 250 mg tablet levetiracetam 250 mg tablet completed levetiraceta m 250 MG Oral Tablet [facility] ([facility]) Omeprazole 20 MG Delayed Release Oral Ca psule omeprazole 20 mg capsule,delayed release omeprazole 20 mg capsule,delayed release completed omeprazole 20 MG Delayed Release Oral Capsule [place] ([facility]) Lorazepam 1 MG Oral Tablet lorazepam 1 mg tablet lorazepam 1 mg tablet completed lorazepam 1 MG Oral Table t [place] ([facility]) Hydroxyzine Pamoate 25 MG Oral Capsule hydroxyzine donnell oate 25 mg capsule hydroxyzine pamoate 25 mg capsule comp leted hydroxyzine pamoate 25 MG Oral Capsule [place] ([facility]) ferrous sulfate 325 MG Delayed Release O ral Tablet ferrous sulfate 325 mg (65 mg iron) tablet,delayed release ferrous sulfate 325 mg (65 mg iron) tabl et,delayed release completed ferrou s sulfate 325 MG Delayed Release Oral Tablet [place] ([facility]) Mirtazapine 30 MG Oral Tablet mirtazapine 30 mg tablet saurabh zapine 30 mg tablet completed mirtazapine 30 MG Oral Tablet [place] ([facility]) Mirtazapine 7.5 MG Oral Tablet mirtazapine 7.5 mg tabl et mirtazapine 7.5 mg tablet completed mirtazapine 7.5 MG Oral Tablet [place] ([facility]) Escitalopram 20 MG Oral Tablet escitalopram 20 mg tabl et escitalopram 20 mg tablet completed escitalopram 20 MG Oral Tablet [place] ([facility]) Sertraline 100 MG Oral Tablet sertraline 100 mg tablet sertr maliha 100 mg tablet completed sertraline 100 MG Oral Tablet [place] ([facility]) Levetiracetam 250 MG Oral Tablet levetiracetam 250 mg tablet levetiracetam 250 mg tablet completed levetiraceta m 250 MG Oral Tablet [place] ([facility]) vitamin d3 1000 unit caps compl eted vitamin d3 1000 unit caps [facility] ([facility]) Cholecalciferol 2000 UNT Oral Capsule ch olecalciferol (vitamin D3) 50 mcg (2,000 unit) capsule TAKE ONE CAPSULE BY MOUTH @8AM cholecalciferol (vitamin D3) 50 mcg (2,000 unit) capsule TAKE ONE CAPSULE BY MOUTH @8AM completed cholecalciferol 0.05 MG Oral Capsule [place] ([facility]) Amantadine Hydrochloride 100 MG Oral Capsule amantadin e HCl 100 mg capsule amantadine HCl 100 mg capsule complete d amantadine hydrochloride 100 MG Oral Capsule [place] ([facility]) Aristada Initio 675 mg/2.4 mL suspension, extend.rel. IM syringe [id number] completed 2.4 ML aripipra zole lauroxil 281.3 MG/ML Prefilled Syringe [Aristada] [place] ([facility]) buspirone hydrochloride 7.5 MG Oral Tablet buspirone 7 .5 mg tablet buspirone 7.5 mg tablet completed buspirone h ydrochloride 7.5 MG Oral Tablet [place] ([facility]) Mirtazapine 15 MG Oral Tablet mirtazapin e 15 mg tablet Take 1 tablet every day by oral route. mirtazapine 15 mg tablet Take 1 tablet every day by or al route. 1 completed mirtazapine 15 MG Oral Tablet [place] ([facility]) Sulfamethoxazole 800 MG / Trimethoprim 1 60 MG Oral Tablet sulfamethoxazole 800 mg-trimethoprim 160 mg tablet sulfamethoxazole 800 mg-trimethoprim 160 mg tablet completed sulfame thoxazole 800 MG / trimethoprim 160 MG Oral Tablet [place] ([facility]) Hydroxyzine Hydrochloride 50 MG Oral Tab let hydroxyzine HCl 50 mg tablet Take 1 tablet 3 times a day by oral route. hydroxyzine HCl 50 mg tablet Take 1 tabl et 3 times a day by oral route. 1 completed hydroxyzine hydrochloride 50 MG Oral Tablet [place] ([facility]) ferrous sulfate 325 MG TAB PO TID comple cindi ferrous sulfate [place] ([facility]) aripiprazole 10 MG Oral Tablet aripiprazole 10 mg tabl et aripiprazole 10 mg tablet completed aripiprazole 10 MG Oral Tablet [place] ([facility]) Aristada 441 mg/1.6 mL suspension, extend.rel. IM syringe [id number] completed 1.6 ML aripiprazole lauroxil 276 MG/ML Prefilled Syringe [Aristada] [place] ([facility]) Hydroxyzine Hydrochloride 50 MG Oral Tab let hydroxyzine HCl 50 mg tablet Take 1 tablet 3 times a day by oral route. hydroxyzine HCl 50 mg tablet Take 1 tabl et 3 times a day by oral route. 1 completed hydroxyzine hydrochloride 50 MG Oral Tablet [place] ([facility]) vitamin d3 50 mcg (1999) caps completed vitamin d3 50 mcg (1999) caps [facility] ([facility]) Amantadine Hydrochloride 100 MG Oral Capsule amantadin e HCl 100 mg capsule amantadine HCl 100 mg capsule complete d amantadine hydrochloride 100 MG Oral Capsule [facility] ([facility]) buspirone hydrochloride 7.5 MG Oral Tablet buspirone 7 .5 mg tablet buspirone 7.5 mg tablet completed buspirone h ydrochloride 7.5 MG Oral Tablet [place] ([facility]) Sulfamethoxazole 800 MG / Trimethoprim 1 60 MG Oral Tablet sulfamethoxazole 800 mg-trimethoprim 160 mg tablet sulfamethoxazole 800 mg-trimethoprim 160 mg tablet completed sulfame thoxazole 800 MG / trimethoprim 160 MG Oral Tablet [place] ([facility]) Cefuroxime 500 MG Oral Tablet cefuroxime axetil 500 mg tablet cefuroxime axetil 500 mg tablet completed cefuroxi me 500 MG Oral Tablet [place] ([facility]) Aristada 441 mg/1.6 mL suspension, extend.rel. IM syringe [id number] completed 1.6 ML aripiprazole lauroxil 276 MG/ML Prefilled Syringe [Aristada] [place] ([facility]) vitamin d3 50 mcg (1999) caps completed vitamin d3 50 mcg (1999) caps [place] ([facility]) aripiprazole 10 MG Oral Tablet aripiprazole 10 mg tabl et aripiprazole 10 mg tablet completed aripiprazole 10 MG Oral Tablet [place] ([facility]) Aristada Initio 675 mg/2.4 mL suspension, extend.rel. IM syringe [id number] 6 completed 2.4 ML aripipra zole lauroxil 281.3 MG/ML Prefilled Syringe [Aristada] [place] ([facility]) Vitamin D3 25 Mcg CAP PO QAM completed Vitamin D3 [place] ([facility]) Lorazepam 1 MG Oral Tablet lorazepam 1 mg tablet lorazepam 1 mg tablet completed lorazepam 1 MG Oral Table t [facility] ([facility]) ferrous sulfate 325 MG TAB PO TID comple cindi ferrous sulfate [place] ([facility]) Hydroxyzine Pamoate 25 MG Oral Capsule hydroxyzine donnell oate 25 mg capsule hydroxyzine pamoate 25 mg capsule comp leted hydroxyzine pamoate 25 MG Oral Capsule [facility] ([facility]) Sertraline 50 MG Oral Tablet sertraline 50 mg tablet Take 1 tablet every day by oral route. sertraline 50 mg tablet Take 1 tablet every day by oral route. 1 completed sertraline 50 MG Oral Tablet [facility] ([facility]) Hydroxyzine Hydrochloride 25 MG Oral Tablet hydroxyzin e HCl 25 mg tablet hydroxyzine HCl 25 mg tablet completed hydroxyzine hydrochloride 25 MG Oral Tablet [facility] ([facility]) Cefuroxime 500 MG Oral Tablet cefuroxime axetil 500 mg tablet cefuroxime axetil 500 mg tablet completed cefuroxi me 500 MG Oral Tablet [facility] ([facility]) vitamin d3 1000 unit caps compl eted vitamin d3 1000 unit caps [facility] ([facility]) Sertraline 100 MG Oral Tablet sertraline 100 mg tablet sertr maliha 100 mg tablet completed sertraline 100 MG Oral Tablet [place] ([facility]) Mirtazapine 30 MG Oral Tablet mirtazapine 30 mg tablet saurabh zapine 30 mg tablet completed mirtazapine 30 MG Oral Tablet [facility] ([facility]) Escitalopram 20 MG Oral Tablet escitalopram 20 mg tabl et escitalopram 20 mg tablet completed escitalopram 20 MG Oral Tablet [facility] ([facility]) Hydroxyzine Hydrochloride 25 MG Oral Tablet hydroxyzin e HCl 25 mg tablet hydroxyzine HCl 25 mg tablet completed hydroxyzine hydrochloride 25 MG Oral Tablet [facility] ([facility]) Sertraline 25 MG Oral Tablet sertraline 25 mg tablet Take 1 tablet every day by oral route in the morning. sertraline 25 mg tablet Take 1 tablet ev gretta day by oral route in the morning. 1 completed sertraline 25 MG Oral Tablet [facility] ([facility]) Insurance Providers Payer name Policy type / Coverage type Policy ID Covered libertarian ID Covered libertarian's relationship to johnson Policy [employer] Plan Information MEDICAID [id number] SP [id number] [employer] COMMUNITY PLAN MCDO [id number] SP [id number] BLUE CROSS GRAVES PLAN [id number] SP [id number] [facility] Hmo Blue Option Medigap Part B [id number] Self [id number] [facility] [employer] Blue Option Medigap Part B [id number] [id number] Self [id number] [facility] [place] [employer] Option Medigap Part B [id number] [id number] Self [id number] BS [place] [employer] Option Medigap Part B [id number] [id number] Self [id number] BS [place] [employer] Blue Option Medigap Part B [id number] Self BS [place] [employer] Blue Option Medigap Part B [id number] [id number] Self [id number] BS [place] [employer] Blue Option Medigap Part B [id number] [id number] Self [id number] [facility] [place] [employer] Option Medigap Part B [id number] [id number] Self [id number] BS [place] [employer] Option Medigap Part B [id number] 2..[id number] Self [id number] [facility] [place] [employer] Option Medigap Part B [id number] .[id number] Self [id number] BS [place] [employer] Option Medigap Part B [id number] 2..[id number] Self [id number] BS [place] [employer] Option Medigap Part B [id number] 2..[id number] Self [id number] BS [place] [employer] Option Medigap Part B [id number] 2..[id number] Self [id number] [employer] COMMUNITY PLAN [id number] [id number] SP [id number] [facility] Community Plan Medigap Part B [id number] Self [id number] [facility] Community Plan Medigap Part B [id number] Self [id number] [facility] Community Plan Medigap Part B [id number] [id number] Self [id number] [facility] Community Plan Commercial [id number] Self [facility] Community Plan Medigap Part B [id number] [id number] Self [id number] [facility] Community Plan Medigap Part B [id number] Self [id number] [facility] Community Plan Medigap Part B [id number] [id number] Self [id number] [facility] Community Plan Medigap Part B [id number] Self [id number] [facility] Community Plan Medigap Part B [id number] Self [id number] [facility] Community Plan Medigap Part B [id number] Self [id number] [facility] Community Plan Medigap Part B [id number] Self [id number] [facility] Community Plan Medigap Part B [id number] Self [id number] [facility] [facility] Community Plan Medigap Part B [id number] Self [id number] [facility] COMMUNITY PLAN MC [id number] 18 [id number] [facility] Community Plan Medicaid [id number] Self [id number] [facility] Community Plan Medicaid 1941 Self [facility] COMMUNITY PLAN MCDHMO [id number] SP [id number] [facility] COMMUNITY PLAN MCDO [id number] SP [id number] Managed Care - Community Plan [facility] P [id number] S [id number] [facility] Community Plan Commercial [id number] Self [id number] Medicaid S [id number] S [id number] Managed Care - Community Plan [facility] P [id number] S [id number] Medicaid S [id number] S [id number] [place] [id number] Self [id number] Managed Care - [facility] Community Plan P [id number] S [id number] Managed Care - Community Plan [facility] P [id number] S [id number] UH I [id number] Self [id number] Medicaid S [id number] Managed Care - [facility] Community Plan P [id number] S [id number] Medicaid S [id number] [facility] [id number] SP [id number] [facility] COMMUNITY PLAN MCDHMO [id number] SP [id number] [facility] O [id number] S [id number] MEDICAID M [id number] S [id number] [facility] COMM[facility]ITY PLAN [facility] [id number] SP [id number] Managed Care - Community Plan [facility] P [id number] S [id number] Medicaid S [id number] S [id number] [facility] COMMUNITY PLAN [facility] [id number] SP [id number] SELF PAY ONLY [id number] SP [id number] [facility] COMMUNITY PLAN [facility] [id number] SP [id number] SELF PAY ONLY [id number] SP [id number] [facility] O [id number] S [id number] [facility] Klarissa/MCR Health Maintenance Organization (HMO) [id number] Self [id number] [facility] Comm Plan - Medicaid Medicaid [id number] Self [facility] PU[facility] HLTH [id number] SP [id number] UN AMERICHOICE XIX -HMO [id number] 18 [id number] [facility] Community Plan-Caid Medicaid [id number] Self [facility] [id number] 18 [id number] [facility] [id number] 18 [id number] BLUE CROSS BLUE SHIELD-O/P [id number] 18 [id number] MEDICAID-O/P [id number] 18 [id number] MEDICAID - CLINIC [id number] [facility] COMMUNITY PLAN [facility] [id number] SP [id number] Problems, Conditions, and Diagnoses Code Display Name Description Problem Type Effective Dates Data Source(s) schizoaffective, SI, paranoid schizoaffective, SI, par anoid Diagnosis 07/10/2020 07:50:00 PM EDT [facility] F41.9 Anxiety disorder, unspecified Unspecified Anxiety Diso rder Condition 01/24/2021 12:00:00 AM EDT [facility] ([facility]) F25.1 Schizoaffective disorder, depressive typ e Schizoaffective Disorder, Depressive type Condition 01/24/2021 12:00:00 AM EDT [facility] ([facility]) E66.8 Obesity Obesity Problem 09/04/2020 12:00:00 AM ED T [facility] ([facility]) [id number] Vitamin D deficiency Vitamin D Deficiency Problem 04/19/2020 12:00:00 AM EST [facility] ([facility]) F32.9 Major depressive disorder, single episod e, unspecified Unspecified depressive Disorder Condition 02/22/2020 12:00:00 AM EST [facility] ([facility]) [id number] Nicotine dependence Nicotine Dependence Problem 1 12:00:00 AM EDT [facility] ([facility]) [id number] Nicotine dependence Nicotine Dependence Problem 1 12:00:00 AM EDT [facility] ([facility]) [id number] Impacted cerumen in right ear Impacted Cerumen in Right Ear Problem 09/29/2019 12:00:00 AM EDT - 02/02/2020 12:00:00 AM ED T [facility] ([facility]) [id number] Patient asked to attend Patient Asked to Attend Proble 09/29/2019 12:00:00 AM EDT - 02/02/2020 12:00:00 AM EDT [facility] ([facility]) [id number] Tobacco use and exposure - finding Tobacco Use a nd Exposure - Finding Problem 09/29/2019 12:00:00 AM EDT - 02/02/2020 12:00:00 AM ED T [facility] ([facility]) [id number] Nicotine dependence Nicotine Dependence Problem 0 09/29/2019 12:00:00 AM EDT - 02/02/2020 12:00:00 AM EDT [facility] ([facility]) [id number] Impacted cerumen in right ear Impacted Cerumen in Right Ear Problem 09/29/2019 12:00:00 AM EDT - 02/02/2020 12:00:00 AM ED T [facility] ([facility]) [id number] Patient asked to attend Patient Asked to Attend Proble 09/29/2019 12:00:00 AM EDT - 02/02/2020 12:00:00 AM EDT [facility] ([facility]) [id number] Tobacco use and exposure - finding Tobacco Use a nd Exposure - Finding Problem 09/29/2019 12:00:00 AM EDT - 02/02/2020 12:00:00 AM ED T [facility] ([facility]) [id number] Nicotine dependence Nicotine Dependence Problem 0 09/29/2019 12:00:00 AM EDT - 02/02/2020 12:00:00 AM EDT [facility] ([facility]) [id number] Clinical finding Clinical Finding Problem 020 12:00:00 AM EDT - 03/29/2020 12:00:00 AM EST [facility] ([facility]) [id number] Anesthesia of skin Anesthesia of Skin Problem 12:00:00 AM EDT - 02/02/2020 12:00:00 AM EDT [facility] ([facility]) [id number] Anesthesia of skin Anesthesia of Skin Problem 12:00:00 AM EDT - 02/02/2020 12:00:00 AM EDT [facility] ([facility]) [id number] Clinical finding Clinical Finding Problem 019 12:00:00 AM EST - 02/02/2020 12:00:00 AM EDT [facility] ([facility]) [id number] Clinical finding Clinical Finding Problem 019 12:00:00 AM EST - 02/02/2020 12:00:00 AM EDT [facility] ([facility]) [id number] Breast neoplasm screening status Breast Neoplasm Screening Status Problem 11/11/2018 12:00:00 AM EDT - 04/19/2020 12:00:00 AM LISA [facility] ([facility]) [id number] Electrocardiogram abnormal Electrocardiogram Abnormal Problem 11/11/2018 12:00:00 AM EDT - 04/19/2020 12:00:00 AM EST [facility] ([facility]) [id number] Dizziness and giddiness Dizziness and Giddiness Proble m 11/11/2018 12:00:00 AM EDT - 02/02/2020 12:00:00 AM EDT [facility] ([facility]) [id number] Dizziness and giddiness Dizziness and Giddiness Proble m 11/11/2018 12:00:00 AM EDT - 02/02/2020 12:00:00 AM EDT [facility] ([facility]) [id number] Dysuria Dysuria Problem 04/02/2018 12:0 0:00 AM EST - 02/02/2020 12:00:00 AM EDT [facility] ([facility]) [id number] Urinary tract infectious disease Urinary Tract I nfectious Disease Problem 04/02/2018 12:00:00 AM EST - 02/02/2020 12:00:00 AM ED T [facility] ([facility]) [id number] Dysuria Dysuria Problem 04/02/2018 12:0 0:00 AM EST - 02/02/2020 12:00:00 AM EDT [facility] ([facility]) [id number] Urinary tract infectious disease Urinary Tract I nfectious Disease Problem 04/02/2018 12:00:00 AM EST - 02/02/2020 12:00:00 AM ED T [facility] ([facility]) [id number] Influenza vaccine needed Influenza Vaccine Needed Pro blem 03/13/2018 12:00:00 AM EST - 02/02/2020 12:00:00 AM EDT [facility] ([facility]) [id number] Influenza vaccine needed Influenza Vaccine Needed Pro blem 03/13/2018 12:00:00 AM EST - 02/02/2020 12:00:00 AM EDT [facility] ([facility]) [id number] Screening for malignant neoplasm of cerv ix Screening for Malignant Neoplasm of Cervix Problem 09/29/2017 12:00:00 AM EDT - 02/02/2020 12:00:00 AM EDT [facility] ([facility]) [id number] Screening for malignant neoplasm of cerv ix Screening for Malignant Neoplasm of Cervix Problem 09/29/2017 12:00:00 AM EDT - 02/02/2020 12:00:00 AM EDT [facility] ([facility]) [id number] Enterovirus enteritis Enterovirus Enteritis Problem 09/09/2017 12:00:00 AM EDT - 02/02/2020 12:00:00 AM EDT [facility] ([facility]) [id number] Enterovirus enteritis Enterovirus Enteritis Problem 09/09/2017 12:00:00 AM EDT - 02/02/2020 12:00:00 AM EDT [facility] ([facility]) [id number] Influenza vaccination status Influenza Vaccination Sta tus Problem 03/11/2017 12:00:00 AM EST - 02/02/2020 12:00:00 AM EDT [facility] ([facility]) [id number] Foot pain Foot Pain Problem 03/11/2017 12:0 0:00 AM EST - 02/02/2020 12:00:00 AM EDT [facility] ([facility]) [id number] Influenza vaccination status Influenza Vaccination Sta tus Problem 03/11/2017 12:00:00 AM EST - 02/02/2020 12:00:00 AM EDT [facility] ([facility]) [id number] Foot pain Foot Pain Problem 03/11/2017 12:0 0:00 AM EST - 02/02/2020 12:00:00 AM EDT [facility] ([facility]) [id number] Procedure by method Procedure by Method Problem 0 01/03/2017 12:00:00 AM EDT - 02/02/2020 12:00:00 AM EDT [facility] ([facility]) [id number] Fitting procedure Fitting Procedure Problem 01/03 12:00:00 AM EDT - 02/02/2020 12:00:00 AM EDT [facility] ([facility]) [id number] Procedure by method Procedure by Method Problem 0 01/03/2017 12:00:00 AM EDT - 02/02/2020 12:00:00 AM EDT [facility] ([facility]) [id number] Fitting procedure Fitting Procedure Problem 01/03 12:00:00 AM EDT - 02/02/2020 12:00:00 AM EDT [facility] ([facility]) Surgeries/Procedures Procedure Description Date Indications Data Source(s) THERAPEUTIC PROPHYLACTIC/DX INJECTION SUBQ/IM 01/24/2021 12:00:00 AM EDT - 01/24/2021 12:00:00 AM EDT [facility] ([facility]) THERAPEUTIC PROPHYLACTIC/DX INJECTION SUBQ/IM 01/25/20 12:00:00 AM EDT [facility] ([facility]) Brief Individual Psychotherapy - 30 min 01/10/2021 12:00:00 AM EDT - 01/10/2021 12:00:00 AM EDT [facility] ([facility]) Brief Individual Psychotherapy - 30 min 01/10/2021 12: 00:00 AM EDT [facility] ([facility]) Comprehensive medication services, per 15 minutes 12/25/2020 12:00:00 AM EDT - 12/25/2020 12:00:00 AM EDT [facility] ([facility]) Comprehensive medication services, per 15 minutes 12/25/2020 12:00:00 AM EDT [facility] ([facility]) Comprehensive medication services, per 15 minutes 11/27/2020 12:00:00 AM EDT - 11/27/2020 12:00:00 AM EDT [facility] ([facility]) Comprehensive medication services, per 15 minutes 11/27/2020 12:00:00 AM EDT [facility] ([facility]) Brief Individual Psychotherapy - 30 min 11/21/2020 12:00:00 AM EDT - 11/21/2020 12:00:00 AM EDT [facility] ([facility]) Brief Individual Psychotherapy - 30 min 11/21/2020 12: 00:00 AM EDT [facility] ([facility]) Brief Individual Psychotherapy - 30 min 10/26/2020 12:00:00 AM EDT - 10/26/2020 12:00:00 AM EDT [facility] ([facility]) Brief Individual Psychotherapy - 30 min 10/26/2020 12: 00:00 AM EDT [facility] ([facility]) Comprehensive medication services, per 15 minutes 10/26/2020 12:00:00 AM EDT - 10/26/2020 12:00:00 AM EDT [facility] ([facility]) Comprehensive medication services, per 15 minutes 10/26/2020 12:00:00 AM EDT [facility] ([facility]) Comprehensive medication services, per 15 minutes 09/29/2020 12:00:00 AM EDT - 09/29/2020 12:00:00 AM EDT [facility] ([facility]) Comprehensive medication services, per 15 minutes 09/29/2020 12:00:00 AM EDT [facility] ([facility]) ECG ROUTINE ECG W/LEAST 12 LDS W/I&R 09/04/2020 12:00: 00 AM EDT [facility] ([facility]) Comprehensive medication services, per 15 minutes 09/01/2020 12:00:00 AM EDT - 09/01/2020 12:00:00 AM EDT [facility] ([facility]) Comprehensive medication services, per 15 minutes 09/01/2020 12:00:00 AM EDT [facility] ([facility]) Comprehensive medication services, per 15 minutes 08/03/2020 12:00:00 AM EDT - 08/03/2020 12:00:00 AM EDT [facility] ([facility]) Comprehensive medication services, per 15 minutes 08/03/2020 12:00:00 AM EDT [facility] ([facility]) Extended Individual Psychotherapy - 45 min 08/03/2020 12:00:00 AM EDT - 08/03/2020 12:00:00 AM EDT [facility] ([facility]) Extended Individual Psychotherapy - 45 min 12:00:00 AM EDT [facility] ([facility]) Brief Individual Psychotherapy - 30 min 07/10/2020 12:00:00 AM EDT - 07/10/2020 12:00:00 AM EDT [facility] ([facility]) Brief Individual Psychotherapy - 30 min 07/10/2020 12: 00:00 AM EDT [facility] ([facility]) THERAPEUTIC PROPHYLACTIC/DX INJECTION SUBQ/IM 07/10/2020 12:00:00 AM EDT - 07/10/2020 12:00:00 AM EDT [facility] ([facility]) THERAPEUTIC PROPHYLACTIC/DX INJECTION SUBQ/IM 07/11/19 12:00:00 AM EDT [facility] ([facility]) THERAPEUTIC PROPHYLACTIC/DX INJECTION SUBQ/IM 06/29/2020 12:00:00 AM EDT - 06/29/2020 12:00:00 AM EDT [facility] ([facility]) THERAPEUTIC PROPHYLACTIC/DX INJECTION SUBQ/IM 06/29/19 21 12:00:00 AM EDT [facility] ([facility]) MHC Telemed E/M Lvl 3--Est pt 05/31/2020 12:00:00 AM EST - 05/31/2020 12:00:00 AM EST [facility] ([facility]) MHC Telemed E/M Lvl 3--Est pt 05/31/2020 12:00:[address] [facility] ([facility]) THERAPEUTIC PROPHYLACTIC/DX INJECTION SUBQ/IM 05/31/2020 12:00:00 AM EST - 05/31/2020 12:00:00 AM EST [facility] ([facility]) THERAPEUTIC PROPHYLACTIC/DX INJECTION SUBQ/IM 05/31/19 12:00:00 AM EST [facility] ([facility]) MHC Telemed E/M Lvl 3--Est pt 05/25/2020 12:00:00 AM EST - 05/25/2020 12:00:00 AM EST [facility] ([facility]) MHC Telemed E/M Lvl 3--Est pt 05/25/2020 12:00:[address] [facility] ([facility]) Extended Individual Psychotherapy - 45 min 05/19/2020 12:00:00 AM EST - 05/19/2020 12:00:00 AM EST [facility] ([facility]) Extended Individual Psychotherapy - 45 min 12:00:00 AM EST [facility] ([facility]) Extended Individual Psychotherapy - 45 min 05/09/2020 12:00:00 AM EST - 05/09/2020 12:00:00 AM EST [facility] ([facility]) Extended Individual Psychotherapy - 45 min 12:00:00 AM EST [facility] ([facility]) Comprehensive medication services, per 15 minutes 05/04/2020 12:00:00 AM EST - 05/04/2020 12:00:00 AM EST [facility] ([facility]) Comprehensive medication services, per 15 minutes 05/04/2020 12:00:00 AM EST [facility] ([facility]) MHC Telemed E/M Lvl 3--Est pt 05/04/2020 12:00:00 AM EST - 05/04/2020 12:00:00 AM EST [facility] ([facility]) MHC Telemed E/M Lvl 3--Est pt 05/04/2020 12:00:[address] [facility] ([facility]) THERAPEUTIC PROPHYLACTIC/DX INJECTION SUBQ/IM 05/01/2020 12:00:00 AM EST - 05/01/2020 12:00:00 AM EST [facility] ([facility]) THERAPEUTIC PROPHYLACTIC/DX INJECTION SUBQ/IM 05/01/19 12:00:00 AM EST [facility] ([facility]) Extended Individual Psychotherapy - 45 min 04/24/2020 12:00:00 AM EST - 04/24/2020 12:00:00 AM EST [facility] ([facility]) Extended Individual Psychotherapy - 45 min 12:00:00 AM EST [facility] ([facility]) MHC Telemed E/M Lvl 3--Est pt 04/20/2020 12:00:00 AM EST - 04/20/2020 12:00:00 AM EST [facility] ([facility]) MHC Telemed E/M Lvl 3--Est pt 04/20/2020 12:00:[address] [facility] ([facility]) Telemed A/O 30" 04/20/2020 12:00:00 AM EST [facility] ([facility]) OFFICE OUTPATIENT VISIT 15 MINUTES 04/20/2020 12:00:00 AM EST [facility] ([facility]) THERAPEUTIC PROPHYLACTIC/DX INJECTION SUBQ/IM 04/03/2020 12:00:00 AM EST - 04/03/2020 12:00:00 AM EST [facility] ([facility]) THERAPEUTIC PROPHYLACTIC/DX INJECTION SUBQ/IM 04/03/20 20 12:00:00 AM EST [facility] ([facility]) THERAPEUTIC PROPHYLACTIC/DX INJECTION SUBQ/IM 03/31/2020 12:00:00 AM EST - 03/31/2020 12:00:00 AM EST [facility] ([facility]) THERAPEUTIC PROPHYLACTIC/DX INJECTION SUBQ/IM 03/31/20 20 12:00:00 AM EST [facility] ([facility]) OFFICE OUTPATIENT VISIT 15 MINUTES 03/29 12:00:00 AM EST - 03/29/2020 12:00:00 AM EST [facility] ([facility]) OFFICE OUTPATIENT VISIT 15 MINUTES 03/29/2020 12:00:00 AM EST [facility] ([facility]) Extended Individual Psychotherapy - 45 min 03/21/2020 12:00:00 AM EST - 03/21/2020 12:00:00 AM EST [facility] ([facility]) Extended Individual Psychotherapy - 45 min 0 12:00:00 AM EST [facility] ([facility]) OFFICE OUTPATIENT VISIT 15 MINUTES 02/23 12:00:00 AM EST - 02/24/2020 12:00:00 AM EST [facility] ([facility]) Psychotherapy ADD ON - 30 Minutes 02/24/2020 12:00:00 AM EST [facility] ([facility]) OFFICE OUTPATIENT VISIT 15 MINUTES 02/24/2020 12:00:00 AM EST [facility] ([facility]) TEMPMHCTelemed 30" Psychotherapy 12:00:00 AM EST - 02/22/2020 12:00:00 AM EST [facility] ([facility]) TEMPMHCTelemed 30" Psychotherapy 02/22/2020 12:00:00 A M EST [facility] ([facility]) TEMPMHCTelemed 30" Psychotherapy 12:00:00 AM EDT - 01/27/2020 12:00:00 AM EDT [facility] ([facility]) TEMPMHCTelemed 30" Psychotherapy 01/27/2020 12:00:00 A M EDT [facility] ([facility]) [facility] Telemed E/M Lvl 3--Est pt 01/24/2020 12:00:00 AM EDT - 01/24/2020 12:00:00 AM EDT [facility] ([facility]) MHC Telemed E/M Lvl 3--Est pt 01/24/2020 12:00:00 AM E DT [facility] ([facility]) OFFICE OUTPATIENT NEW 30 MINUTES 12:00:00 AM EDT - 01/03/2020 12:00:00 AM EDT [facility] ([facility]) OFFICE OUTPATIENT NEW 30 MINUTES 01/03/2020 12:00:00 A M EDT [facility] ([facility]) Comprehensive medication services, per 15 minutes 01/03/2020 12:00:00 AM EDT - 01/03/2020 12:00:00 AM EDT [facility] ([facility]) Comprehensive medication services, per 15 minutes 01/03/2020 12:00:00 AM EDT [facility] ([facility]) Comprehensive medication services, per 15 minutes 12/31/2019 12:00:00 AM EDT - 12/31/2019 12:00:00 AM EDT [facility] ([facility]) Comprehensive medication services, per 15 minutes 12/31/2019 12:00:00 AM EDT [facility] ([facility]) Comprehensive medication services, per 15 minutes 12/30/2019 12:00:00 AM EDT - 12/30/2019 12:00:00 AM EDT [facility] ([facility]) Comprehensive medication services, per 15 minutes 12/30/2019 12:00:00 AM EDT [facility] ([facility]) Results ID Date Data Source [id number] 02/14/2021 10:51:00 PM EDT [facility] Name Value Range Interpretation Code Description Data Mitra rce(s) Supporting Document(s) SARS coronavirus 2 RNA [Presence] in Res piratory specimen by MICKIE with probe detection NEGATIVE [facility] was ordered by [facility] a nd reported by [facility]. ID Date Data Source [id number] 09/08/2020 09:36:00 AM EDT [facility] ([facility]) Name Value Range Interpretation Code Description Data Mitra rce(s) Supporting Document(s) Magnesium [Mass/volume] in Serum or Plasma 2.4 mg/dL 1.8-2.4 [facility] ([facility]) ID Date Data Source [id number] 09/08/2020 09:36:00 AM EDT [facility] ([facility]) Name Value Range Interpretation Code Description Data Mitra rce(s) Supporting Document(s) Blood Urea Nitrogen 11 mg/dL 7-18 [facility] ([facility]) Glucose, Fasting 86 mg/dL 70-100 [facility] ([facility]) Creatinine For GFR 0.85 mg/dL 0.55-1.30 [facility] ([facility]) Glomerular Filtration Rate Laboratory test result [facility] ([facility]) <content>Units are mL/min/1.73 m2</content>
<content></content>
<content>Chronic Kidney Disease Staging per NKF:</content>
<content></content>
<content>Stage I & II GFR >=60 Normal to Mildly Decreased</content>
<content>Stage III GFR 30- 59 Moderately Decreased</content>
<content>Stage IV GFR 15-29 Severely Decreased</content>
<content>Stage V GFR <15 Very Little GFR Left</content>
<content>ESRD GFR <15 on [employer]</content>
<content></content> Potassium Serum 4.6 meq/L 3.5-5.1 [facility] ([facility]) Sodium Level 139 meq/L 136-145 [facility] ([facility]) Carbon Dioxide Level 30 meq/L 21-32 [facility] [...] [facility]) ID Date Data Source [id number] 07/10/2020 08:17:00 PM EDT [facility] Name Value Range Interpretation Code Description Data Mitra rce(s) Supporting Document(s) SARS coronavirus 2 RNA [Presence] in Res piratory specimen by MICKIE with probe detection NEGATIVE [facility] This lab was ordered by [facility] a nd reported by [facility]. ID Date Data Source [id number] 07/10/2020 07:51:55 PM EDT [facility] Name Value Range Interpretation Code Description Data Mitra rce(s) Supporting Document(s) Progress Note [facility] WVDZCu2aFzHCHyBa00/IWMelPEJbt3XlCYcxISi6MQjlEDSiB9ElSJH3dC0oWAK4JGhWJyWwTtFfCcH8 lbm [file] AgICAgICAgICAgICAgICAgICAgICAgICAgICAgICAg ICAgICAgICAgICAgICAgICAgICAgICAgICAgICAgICAgICAgICANCiAgICAgICAgICAgICAgICAgICAg ICAgICAgICAgICAgICAgICAgICAgICAgICAgICAgICAgICAgICAgICAgICAgICAgICAgICAgICAgICAg ICAgICAgICAgICAgICAgICAgICANCiAgICAgICAgIC AgICAgICAgICAgICAgICAgICAgICAgICAgICAgICAgICAgICAgICAgICAgICAgICAgICAgICAgICAgIC AgICAgICAgICAgICAgICAgICAgICAgICAgICAgICANCiAgICAgICAgICAgICAgICAgICAgICAgICAgIC AgICAgICAgICAgICAgICAgICAgICAgICAgICAgICAg ICAgICAgICAgICAgICAgICAgICAgICAgICAgICAgICAgICAgICAgICANCiAgICAgICAgICAgICAgICAg ICAgICAgICAgICAgICAgICAgICAgICAgICAgICAgICAgICAgICAgICAgICAgICAgICAgICAgICAgICAg ICAgICAgICAgICAgICAgICAgICAgICANCiAgICAgIC AgICAgICAgICAgICAgICAgICAgICAgICAgICAgICAgICAgICAgICAgICAgICAgICAgICAgICAgICAgIC AgICAgICAgICAgICAgICAgICAgICAgICAgICAgICAgICANCiAgICAgICAgICAgICAgICAgICAgICAgIC AgICAgICAgICAgICAgICAgICAgICAgICAgICAgICAg ICAgICAgICAgICAgICAgICAgICAgICAgICAgICAgICAgICAgICAgICAgICANCiAgICAgICAgICAgICAg ICAgICAgICAgICAgICAgICAgICAgICAgICAgICAgICAgICAgICAgICAgICAgICAgICAgICAgICAgICAg ICAgICAgICAgICAgICAgICAgICAgICAgICANCiAgIC AgICAgICAgICAgICAgICAgICAgICAgICAgICAgICAgICAgICAgICAgICAgICAgICAgICAgICAgICAgIC AgICAgICAgICAgICAgICAgICAgICAgICAgICAgICAgICAgICANCiAgICAgICAgICAgICAgICAgICAgIC AgICAgICAgICAgICAgICAgICAgICAgICAgICAgICAg ICAgICAgICAgICAgICAgICAgICAgICAgICAgICAgICAgICAgICAgICAgICAgICANCjw/zQHpT2tluVWw ojN7W5vgSc0LMe4ISP3ac1CrSBAsRPtpfpHmTgvGPiQxEOThYupATex3VHevQD5KrMFxY1VhV2MrDOax LH5HALVgCUFatTKeGWQzQDTlNpU0IYRdUZbpDI4XhY ZwBYzmDDFyNFVqZK1GEDQoM615ykDwDQ6DRv3MKsSpTO4upf6WKTOiQBUiAluSIsd6BXwuTV8FaUFvdN LqFVDdOQYGRiJmF8dff3PfNZBvJAUHFTijAO1Nm2JkuOBwSFd+Zj2PRB4en6YoYUpfQUZaPS0zll6ALG cAWjFtQ4CihAxbASFfm7ouXNRbCO7wyEJvOSK0PVAr DDJ6VJCctOc4I8nmHPwzFx6oGDTgAl5zAG5yZDGzUVQ2ScOfCKXPVO9USETuVYFydSOoHHQqWNEQTJ5A HRttEIX5KSKpjbGimAVpLBshJE4XKAQslqZtJXXzIYVEXWk+Ay5GPV7cb9FeAQdcToWmTV3fdn5QRGiD UgYrR3B8vYJmK9I3RQaxSe0VVKMzJVGqVQAwDQRCJU lhNJ7MWP1zodM1PC4DcFJoFOQlEMVnnQUcDOr9T47ofOOdNWcaGS5MCWU+Ketan+Cd4CANJdXVStDNIgZk UyFXGKCeKcQ9HtA0HAh9BgH2ZdJO44bSjlucBrBGjaME4XWN7gKGYxYMYREW4GfJCulO6oajYnPQTtUM OHNlDtJ33uwENkNRTgDOHiNAZuDt9OKYTdS2JdleHz uRxoelLvRXLrLDLRHN6QFOzqdjNdoFPjcXqhUQ86qGksKW6SYz6UBlZwFX7eob0JdFEjYn2GMYWvNb2K DCZwWQGyRUPcCBK1UKAeHeYlVGtpZLMlZPDyUGE8ZBCoGKGnIA4DUwPtSBGrBDY7XaPwSYFtQQVqwf4O XPVkXFUzRwX0LXQpMMOlQPIaFWwdNVOjEGRzWWR9FZ QpLTLtGC0SLkHyTADzFVY4CrZwBLKpHWFszl1NLWHnAHFePvEkCZCyAFVbCXYhHWqnVETpBJDgJQk8LL OuYHPcSO2GNsKfJBLuCWTmBTJsGERsQKNici0KFFMkRIZcQeU5FrBiZFRjZMGbIXgvEZXcVIE4XlSjOX LtJNZuRX0AUyRlGGRnQKG1NiYiNRKdDHNbdq9XLDBq OEGzPQhjQQWkWRTbDXPeYHzuJYGmOOA3IRH6DYOzKRGuSJ7KAhPmRQWgOQO3LSXzYLRfKCNagi8LUEPl QMWrQsCwNlBkBZOhGUSzZNukXDEgDRP3PdoqSJSoRGGgSK8TSoVgGTohVRXIRkd5PDuaE9v4RSPnEz3U Q7Tir0QcFWSzAYHHNArbKB5gxaElLLQlAq1ZM8mVSq p0BKQuRYQ5DGI7VdZ5OEA7AyV8OLslIpHtAnZhYnTuJD5zDFYkJIPbQOptGoLeYEH5YpSvIzU9SJVyGp JiMrDwWNVkUyPrMY1LYs2BIdN1NOO7jLPgFm4JLjTgFb8RKOYET2FAVm== ID Date Data Source [id number] 07/10/2020 01:37:00 PM EDT [facility] ([facility]) Name Value Range Interpretation Code Description Data Mitra rce(s) Supporting Document(s) Thyroid Stimulating Hormone 0.919 ME DENT ([facility]) ID Date Data Source [id number] 07/10/2020 01:37:00 PM EDT [facility] ([facility]) Name Value Range Interpretation Code Description Data Mitra rce(s) Supporting Document(s) Sodium 138 [facility] ([facility]) Calcium [Mass/volume] in Serum or Plasma 9.3 [facility] ([facility]) Carbon dioxide, total [Moles/volume] in Serum or Plasma 27 [facility] ([facility]) Chloride [Moles/volume] in Serum or Plasma 105 [facility] ([facility]) Potassium [Moles/volume] in Serum or Plasma 3.7 [facility] ([facility]) Blood Urea Nitrogen 10 7-18 [facility] ([facility]) Glucose 104 70-100 [facility] ([facility]) Glomerular filtration rate/1.73 sq M.pre dicted [Volume Rate/Area] in Serum or Plasma by Creatinine-based formula (MDRD) Laboratory test result [facility] ([facility]) Creatinine 0.90 0.55-1.30 [facility] ([facility]) ID Date Data Source [id number] 07/10/2020 01:37:00 PM EDT [facility] ([facility]) Name Value Range Interpretation Code Description Data Mitra rce(s) Supporting Document(s) Red Blood Count 4.59 4.00-5.40 [facility] ([facility]) White Blood Count 13.6 4.0-10.0 [facility] ([facility]) Hematocrit 39.0 36.0-47.0 [facility] ([facility]) Platelets 401 150-450 [facility] ([facility]) Hemoglobin 12.4 12.0-15.5 [facility] ([facility]) ID Date Data Source [id number] 02/02/2020 12:15:00 PM EDT [facility] ([facility]) Name Value Range Interpretation Code Description Data Mitra rce(s) Supporting Document(s) ferritin 48 NG/mL 8-252 Ferritin [facility] ([facility]) ID Date Data Source [id number] 02/02/2020 12:15:00 PM EDT [facility] ([facility]) Name Value Range Interpretation Code Description Data Mitra rce(s) Supporting Document(s) total 25(oh) vitamin D 34.2 NG/mL 30.0-100.0 Total 25(Oh) Vitamin D [facility] ([facility]) ID Date Data Source [id number] 02/02/2020 12:15:00 [facility] Name Value Range Interpretation Code Description Data Mitra rce(s) Supporting Document(s) folate > 24.0 Folate [facility] ([facility]) vitamin B12 level 448 pg/mL Vitamin B12 Level [place] ([facility]) ID Date Data Source [id number] 02/02/2020 12:15:00 PM EDT [facility] ([facility]) Name Value Range Interpretation Code Description Data Mitra rce(s) Supporting Document(s) thyroid stimulating hormone 1.050 uIU/mL 0.358-3.740 Thyroid Stimulating Hormone [facility] ([facility]) ID Date Data Source [id number] 02/02/2020 12:15:00 PM EDT [facility] ([facility]) Name Value Range Interpretation Code Description Data Mitra rce(s) Supporting Document(s) total iron binding capacity 331 ug/dL 250-450 Total Ir on Binding Capacity [facility] ([facility]) percent saturation 16.6 % 13.2-45.0 Percent Saturatio n [facility] ([facility]) iron (fe) 55 ug/dL 50-170 Iron (Fe) [facility] ([facility]) ID Date Data Source [id number] 02/02/2020 12:15:00 PM EDT [facility] ([facility]) Name Value Range Interpretation Code Description Data Mitra rce(s) Supporting Document(s) triglycerides level 138 mg/dL <150 Triglycerides [place] [facility] ([facility]) Cholesterol in LDL [Mass/volume] in Serum or Plasma 98 mg/dL <1 00 LDL Cholesterol [facility] ([facility]) HDL cholesterol 60 mg/dL >40 HDL Cholesterol ATHE NA ([facility]) non-HDL-C 126 mg/dL Non-hdl-c [facility] ([facility]) cholesterol level 186 mg/dL <200 Cholesterol Level [facility] ([facility]) cholesterol risk ratio <5 Cholesterol R isk Ratio [facility] ([facility]) ID Date Data Source [id number] 02/02/2020 12:15:00 PM EDT [facility] ([facility]) Name Value Range Interpretation Code Description Data Mitra rce(s) Supporting Document(s) Hemoglobin A1c/Hemoglobin.total in Blood 5.4 % Hemoglobin a1C [facility] ([facility]) estimated average glucose 108 mg/dL 60-110 Estimated Average Glucose [facility] ([facility]) ID Date Data Source [id number] 02/02/2020 12:15:00 PM EDT [facility] ([facility]) Name Value Range Interpretation Code Description Data Mitra rce(s) Supporting Document(s) hemoglobin 14.0 g/dL 12.0-15.5 Hemoglobin [facility] ([facility]) red blood count 4.85 10 4.00-5.40 Red Blood Count ATHE NA ([facility]) white blood count 10.5 10 4.0-10.0 Above high normal White Blood Count [facility] ([facility]) mean corpuscular hemoglobin 28.9 pg 27.0-33.0 Mean Cor puscular Hemoglobin [facility] ([facility]) hematocrit 42.5 % 36.0-47.0 Hematocrit [facility] ([facility]) mean corpuscular volume 87.6 fL 80.0-96.0 Mean Corpusc ular Volume [facility] ([facility]) mean corpuscular HGB conc 32.9 g/dL 32.0-36.5 Mean Corpu scular HGB Conc [facility] ([facility]) mono % 6.5 % 0.0-5.0 Above high normal [place] % [facility] ([facility]) red cell distribution width 12.4 % 11.5-14.5 Red Cell Distribution Width [facility] ([facility]) platelet count, automated 172 10 150-450 Platelet C ount, Automated [facility] ([facility]) neutrophils % 64.4 % 36.0-66.0 Neutrophils % [place] ( [facility]) lymph % 28.6 % 24.0-44.0 Lymph % [place] ([facility]) immature granulocyte % 0.3 % 0-3.0 Immature Gran ulocyte % [place] ([facility]) nucleated red blood cell % 0.0 % 0-0 Nucleated Red Blood Cell % [facility] ([facility]) eos % 0.0 % 0.0-3.0 Eos % [facility] ([facility]) baso % 0.2 % 0.0-1.0 Baso % [facility] ([facility]) baso # 0.0 10 0.0-0.2 Baso # [facility] ([facility]) lymph # 3.0 10 1.5-5.0 Lymph # [place] ([facility]) neutrophils # 6.7 10 1.5-8.5 Neutrophils # [facility] ( [facility]) mono # 0.7 10 0.0-0.8 [place] # [facility] ([facility]) eos # 0.0 10 0.0-0.5 Eos # [facility] ([facility]) ID Date Data Source [id number] 02/02/2020 09:23:00 AM EDT [facility] ([facility]) Name Value Range Interpretation Code Description Data Mitra rce(s) Supporting Document(s) Iron 55 50-170 [facility] ([facility]) Iron binding capacity [Mass/volume] in Serum or Plasma 331 [facility] ([facility]) Tibc % Saturation 16.6 [facility] ([facility]) ID Date Data Source [id number] 02/02/2020 09:23:00 AM EDT [facility] ([facility]) Name Value Range Interpretation Code Description Data Mitra rce(s) Supporting Document(s) Cholesterol 186 [facility] ([facility]) Triglycerides 138 [facility] ([facility]) Cholesterol in LDL [Mass/volume] in Serum or Plasma by calculation 98 [facility] ([facility]) HDL 60 [facility] ([facility]) Chol/HDL Ratio 3.100 [facility] ([facility]) ID Date Data Source [id number] 02/02/2020 09:23:00 AM EDT [facility] ([facility]) Name Value Range Interpretation Code Description Data Mitra rce(s) Supporting Document(s) Red Blood Count 4.85 4.00-5.40 [facility] ([facility]) White Blood Count 10.5 4.0-10.0 [facility] ([facility]) Hemoglobin 14.0 12.0-15.5 [facility] ([facility]) Platelets 172 150-450 [facility] ([facility]) Hematocrit 42.5 36.0-47.0 [facility] ([facility]) ID Date Data Source [id number] 02/02/2020 09:23:00 AM EDT [facility] ([facility]) Name Value Range Interpretation Code Description Data Mitra rce(s) Supporting Document(s) Hemoglobin A1c/Hemoglobin.total in Blood 5.4 [facility] ([facility]) Procedure Social History Code Duration Value Status Description Data Source(s ) Smoking 01/24/2021 12:00:00 AM EDT Unknown if ever smoked comp leted Unknown if ever smoked [facility] ([facility]) Smoking 01/10/2021 12:00:00 AM EDT Unknown if ever smoked comp leted Unknown if ever smoked [facility] ([facility]) Smoking 12/25/2020 12:00:00 AM EDT Unknown if ever smoked comp leted Unknown if ever smoked [facility] ([facility] Smoking 11/27/2020 12:00:00 AM EDT Unknown if ever smoked comp leted Unknown if ever smoked [facility] ([facility]) Smoking 11/21/2020 12:00:00 AM EDT Unknown if ever smoked comp leted Unknown if ever smoked [facility] ([facility]) Smoking 10/26/2020 12:00:00 AM EDT Unknown if ever smoked comp leted Unknown if ever smoked [facility] ([facility]) Smoking 09/29/2020 12:00:00 AM EDT Unknown if ever smoked comp leted Unknown if ever smoked [facility] ([facility]) Smoking 09/04/2020 12:00:00 AM EDT Patient is a former smoker completed Patient is a former smoker [facility] ([facility]) Smoking 09/01/2020 12:00:00 AM EDT Unknown if ever smoked comp leted Unknown if ever smoked [facility] ([facility]) Smoking 08/03/2020 12:00:00 AM EDT Unknown if ever smoked comp leted Unknown if ever smoked [facility] ([facility]) Smoking 07/10/2020 12:00:00 AM EDT Unknown if ever smoked comp leted Unknown if ever smoked [facility] ([facility]) Smoking 06/29/2020 12:00:00 AM EDT Unknown if ever smoked comp leted Unknown if ever smoked [facility] ([facility]) Smoking 05/31/2020 12:00:00 AM EST Unknown if ever smoked comp leted Unknown if ever smoked [facility] ([facility]) Smoking 05/25/2020 12:00:00 AM EST Unknown if ever smoked comp leted Unknown if ever smoked [facility] ([facility]) Smoking 05/19/2020 12:00:00 AM EST Unknown if ever smoked comp leted Unknown if ever smoked [facility] ([facility]) Smoking 05/09/2020 12:00:00 AM EST Unknown if ever smoked comp leted Unknown if ever smoked [facility] Smoking 05/04/2020 12:00:00 AM EST Unknown if ever smoked comp leted Unknown if ever smoked [facility] ([facility] Smoking 05/01/2020 12:00:00 AM EST Unknown if ever smoked comp leted Unknown if ever smoked [facility] ([facility]) Smoking 04/24/2020 12:00:00 AM EST Unknown if ever smoked comp leted Unknown if ever smoked [facility] ([facility]) Smoking 04/20/2020 12:00:00 AM EST Unknown if ever smoked comp leted Unknown if ever smoked [facility] ([facility]) Smoking 04/03/2020 12:00:00 AM EST Unknown if ever smoked comp leted Unknown if ever smoked [facility] ([facility]) Smoking 03/31/2020 12:00:00 AM EST Unknown if ever smoked comp leted Unknown if ever smoked [facility] ([facility]) Smoking 03/29/2020 12:00:00 AM EST Unknown if ever smoked comp leted Unknown if ever smoked [facility] ([facility]) Smoking 03/21/2020 12:00:00 AM EST Unknown if ever smoked comp leted Unknown if ever smoked [facility] ([facility]) Smoking 02/24/2020 12:00:00 AM EST Unknown if ever smoked comp leted Unknown if ever smoked [facility] ([facility]) Smoking 02/22/2020 12:00:00 AM EST Unknown if ever smoked comp leted Unknown if ever smoked [facility] ([facility]) Smoking 01/27/2020 12:00:00 AM EDT Unknown if ever smoked comp leted Unknown if ever smoked [facility] ([facility]) Smoking 01/24/2020 12:00:00 AM EDT Unknown if ever smoked comp leted Unknown if ever smoked [facility] ([facility]) Smoking 01/03/2020 12:00:00 AM EDT Unknown if ever smoked comp leted Unknown if ever smoked [facility] ([facility]) Smoking 12/31/2019 12:00:00 AM EDT Unknown if ever smoked comp leted Unknown if ever smoked [facility] ([facility]) Smoking 12/30/2019 12:00:00 AM EDT Unknown if ever smoked comp leted Unknown if ever smoked [facility] ([facility]) Vital Signs ID Date Data Source UNK Name Value Range Interpretation Code Description Data Source(s) Systolic blood pressure--standing 112 mm[Hg] 11 2 mm[Hg] [facility] ([facility]) Ra, large cuff Systolic blood pressure--sitting 116 mm[Hg] 116 mm[Hg] [facility] ([facility]) Ra, large cuff Diastolic blood pressure--standing 74 mm[Hg] 7 4 mm[Hg] [facility] ([facility]) Ra, large cuff Systolic blood pressure--supine 120 mm[Hg] 120 mm[Hg] [facility] ([facility]) Ra, large cuff Diastolic blood pressure--supine 78 mm[Hg] 78 mm[Hg] [facility] ([facility]) Ra, large cuff Body weight 199.00 [lb_av] 199.00 [lb_av] [facility] T ([facility]) Body height 68 [in_i] 68 [in_i] [facility] ([facility]) 5'8" Body mass index (BMI) [Ratio] 30.3 kg/m2 30.3 k g/m2 [facility] ([facility]) Heart rate 66 /min 66 /min [facility] ([facility]) Diastolic blood pressure--sitting 74 mm[Hg] 74 mm[Hg] [facility] ([facility]) Ra, large cuff Body height 0.00 in Normal (applies to non-numeric resu lts) 0.00 in [facility] ([facility]) Body weight Measured 0.00 lbs Normal (applies to n on-numeric results) 0.00 lbs [facility] ([facility]) Diastolic blood pressure 0 mm[Hg] Normal (applies to non-numeric results) 0 mm[Hg] [facility] ([facility]) Body mass index (BMI) [Ratio] 0.00 kg/m2 No rmal (applies to non-numeric results) 0.00 kg/m2 [facility] ([facility]) Systolic blood pressure 0 mm[Hg] Normal (applies t o non-numeric results) 0 mm[Hg] [facility] ([facility]) Body height 0.00 in Normal (applies to non-numeric resu lts) 0.00 in [facility] ([facility]) Body weight Measured 0.00 lbs Normal (applies to n on-numeric results) 0.00 lbs [facility] ([facility]) Body mass index (BMI) [Ratio] 0.00 kg/m2 No rmal (applies to non-numeric results) 0.00 kg/m2 [facility] ([facility]) Systolic blood pressure 0 mm[Hg] Normal (applies t o non-numeric results) 0 mm[Hg] [facility] ([facility]) Diastolic blood pressure 0 mm[Hg] Normal (applies to non-numeric results) 0 mm[Hg] [facility] ([facility]) Body height 68 [in_i] 68 [in_i] [place] ([facility]) Body height 0.00 in Normal (applies to non-numeric resu lts) 0.00 in [facility] ([facility]) Body weight Measured 0.00 lbs Normal (applies to n on-numeric results) 0.00 lbs [facility] ([facility]) Body mass index (BMI) [Ratio] 0.00 kg/m2 No rmal (applies to non-numeric results) 0.00 kg/m2 [facility] ([facility]) Systolic blood pressure 0 mm[Hg] Normal (applies t o non-numeric results) 0 mm[Hg] [facility] ([facility]) Diastolic blood pressure 0 mm[Hg] Normal (applies to non-numeric results) 0 mm[Hg] [facility] ([facility]) Diastolic blood pressure 83 mm[Hg] 83 mm[Hg] [facility] ([facility]) Body height 68 [in_i] 68 [in_i] [facility]) Body mass index (BMI) [Ratio] 31 kg/m2 31 kg/ m2 [facility] ([facility]) Systolic blood pressure 125 mm[Hg] 125 mm[Hg] A [facility] ([facility]) Body weight 3264 [oz_av] 3264 [oz_av] [facility] ([facility]) Diastolic blood pressure 83 mm[Hg] 83 mm[Hg] [facility] ([facility]) Body height 68 [in_i] 68 [in_i] [facility] ([facility]) Body mass index (BMI) [Ratio] 31 kg/m2 31 kg/ m2 [facility] ([facility]) Systolic blood pressure 125 mm[Hg] 125 mm[Hg] A [facility] ([facility]) Body weight 3264 [oz_av] 3264 [oz_av] [facility] ([facility]) Body height 0.00 in Normal (applies to non-numeric resu lts) 0.00 in [facility] ([facility]) Body weight Measured 0.00 lbs Normal (applies to n on-numeric results) 0.00 lbs [facility] ([facility]) Body mass index (BMI) [Ratio] 0.00 kg/m2 No rmal (applies to non-numeric results) 0.00 kg/m2 [facility] ([facility]) Systolic blood pressure 0 mm[Hg] Normal (applies t o non-numeric results) 0 mm[Hg] [facility] ([facility]) Diastolic blood pressure 0 mm[Hg] Normal (applies to non-numeric results) 0 mm[Hg] [facility] ([facility]) ID Date Data Source [id number] 07/10/2020 07:51:[address] [facility] Name Value Range Interpretation Code Description Data Source(s) TRANSFER FROM [facility] Patient Treatment Plan of Care Planned Activity Planned Date Details Description Data Source (s) vitamin d3 50 mcg (1999 ut) caps [place] ([facility]) vitamin d3 1000 unit caps A [facility] ([facility] Vitamin D3 25 Mcg CAP PO QAM [facility] ([facility]) Sulfamethoxazole 800 MG / Trimethoprim 160 MG Oral Tablet [facility] ([facility]) Sertraline 50 MG Oral Tablet [facility] ([facility]) Sertraline 25 MG Oral Tablet [facility] ([facility]) Sertraline 100 MG Oral Tablet [facility] ([facility]) Omeprazole 20 MG Delayed Release Oral Capsule [facility] ([facility]) Mirtazapine 7.5 MG Oral Tablet [facility] ([facility]) Mirtazapine 30 MG Oral Tablet [facility] ([facility]) Mirtazapine 15 MG Oral Tablet [facility] ([facility]) Lorazepam 1 MG Oral Tablet A [facility] ([facility]) Levetiracetam 250 MG Oral Tablet [facility] ([facility]) Hydroxyzine Pamoate 25 MG Oral Capsule [facility] ([facility]) Hydroxyzine Hydrochloride 50 MG Oral Tablet [facility] ([facility]) Hydroxyzine Hydrochloride 25 MG Oral Tablet [facility] ([facility]) ferrous sulfate 325 MG TAB PO TID [facility] ([facility]) Escitalopram 20 MG Oral Tablet [facility] ([facility]) Cholecalciferol 2000 UNT Oral Capsule [facility] ([facility]) Cefuroxime 500 MG Oral Tablet [facility] ([facility]) buspirone hydrochloride 7.5 MG Oral Tablet [facility] ([facility]) Aristada Initio 675 mg/2.4 mL suspension, extend.rel. IM syringe [facility] ([facility]) Aristada 441 mg/1.6 mL suspension, extend.rel. IM syringe [facility] ([facility]) aripiprazole 10 MG Oral Tablet [facility] ([facility]) Amantadine Hydrochloride 100 MG Oral Capsule [facility] ([facility]) vitamin d3 50 mcg (2000 ut) caps [facility] ([facility]) vitamin d3 1000 unit caps A [place] ([facility]) Vitamin D3 25 Mcg CAP PO QAM [facility] ([facility]) Sulfamethoxazole 800 MG / Trimethoprim 160 MG Oral Tablet [facility] ([facility]) Sertraline 50 MG Oral Tablet [facility] ([facility]) Sertraline 25 MG Oral Tablet [facility] ([facility]) Sertraline 100 MG Oral Tablet [facility] ([facility]) Mirtazapine 30 MG Oral Tablet [facility] ([facility]) Lorazepam 1 MG Oral Tablet A [facility] ([facility]) Levetiracetam 250 MG Oral Tablet [facility] ([facility]) Hydroxyzine Pamoate 25 MG Oral Capsule [facility] ([facility]) Hydroxyzine Hydrochloride 50 MG Oral Tablet [facility] ([facility]) Hydroxyzine Hydrochloride 25 MG Oral Tablet [facility] ([facility]) ferrous sulfate 325 MG Delayed Release Oral Tablet [facility] ([facility]) ferrous sulfate 325 MG TAB PO TID [facility] ([facility]) Escitalopram 20 MG Oral Tablet MEREDITH ([facility]) Cefuroxime 500 MG Oral Tablet MEREDITH ([facility]) buspirone hydrochloride 7.5 MG Oral Tablet MEREDITH ([facility]) Aristada Initio 675 mg/2.4 mL suspension, extend.rel. IM syringe MEREDITH ([facility]) Aristada 441 mg/1.6 mL suspension, extend.rel. IM syringe MEREDITH ([facility]) aripiprazole 10 MG Oral Tablet MEREDITH ([facility]) Amantadine Hydrochloride 100 MG Oral Capsule MEREDITH ([facility])
== END 2021-02-21 15:12 | disposition left against medical advice (07) ==
LOC: M ED 13:36
DX: Z53.21 Procedure and treatment not carried out due to patient leaving prior to being seen by health care provider (principal)

== ENCOUNTER 2021-04-20 08:45 | Emergency (ER) | payer OTHER ==
[~2021-04-20] VITALS: Ht 172.7 cm; Wt 90.9 kg
[~2021-04-20 08:45] MED LIST changes: -MONT10TA10 PO; +MONT10TA97 PO
[2021-04-20] MEDS ORDERED: HYDR-3713 PO (11:32)
[2021-04-20 11:45] VITALS: BP 136/74
== END 2021-04-20 12:00 | disposition home or self-care (01) ==
LOC: M ED 08:45
DX: S42.202A Unspecified fracture of upper end of left humerus, initial encounter for closed fracture (principal); W01.0XXA Fall on same level from slipping, tripping and stumbling without subsequent striking against object, initial encounter; Y92.009 Unspecified place in unspecified non-institutional (private) residence as the place of occurrence of the external cause; Y93.9 Activity, unspecified; Y99.9 Unspecified external cause status; R56.9 Unspecified convulsions; F17.200 Nicotine dependence, unspecified, uncomplicated; Z79.899 Other long term (current) drug therapy

== ENCOUNTER 2021-09-04 10:51 | Emergency (ER) | payer OTHER ==
[~2021-09-04] VITALS: Ht 172.7 cm; Wt 90.9 kg
[~2021-09-04 10:51] MED LIST changes: +HYDR-3713 PO
[2021-09-04 10:52] VITALS: BP 140/71
[2021-09-04] MEDS ORDERED: ZOLO100T PO (12:13)
[2021-09-04] MEDS ORDERED: WELL100T2 PO (12:15)
[2021-09-04] MEDS ORDERED: HOME MED LIST COMPLETE! XX SCH (14:45)
== END 2021-09-04 15:36 | disposition home or self-care (01) ==
LOC: M ED 10:51
DX: F32.A Depression, unspecified (principal); J45.909 Unspecified asthma, uncomplicated; I10 Essential (primary) hypertension; F20.9 Schizophrenia, unspecified; R56.9 Unspecified convulsions; Z79.899 Other long term (current) drug therapy

== ENCOUNTER 2021-10-22 09:23 | Emergency (ER) | payer OTHER ==
[~2021-10-22] VITALS: Ht 175.3 cm; Wt 95.9 kg
[~2021-10-22 09:23] MED LIST changes: +WELL100T2 PO; +ZOLO100T PO
[2021-10-22] MEDS ORDERED: ANEC4CRE3 TOP (15:54)
[2021-10-22] MEDS ORDERED: IBUP-1022 PO (15:54)
[2021-10-22] MEDS ORDERED: IBUPROFEN 600MG TAB PO ONE (15:55)
[2021-10-22 16:10] VITALS: BP 144/69
== END 2021-10-22 16:16 | disposition home or self-care (01) ==
LOC: M ED 09:23
DX: S80.01XA Contusion of right knee, initial encounter (principal); S80.02XA Contusion of left knee, initial encounter; S60.221A Contusion of right hand, initial encounter; S60.222A Contusion of left hand, initial encounter; W18.39XA Other fall on same level, initial encounter; R42 Dizziness and giddiness; F17.200 Nicotine dependence, unspecified, uncomplicated; Y92.410 Unspecified street and highway as the place of occurrence of the external cause

== ENCOUNTER → 2022-01-23 | Outpatient (REF) | payer OTHER ==
[~2022-01-23] MED LIST changes: +ANEC4CRE3 TOP; +IBUP-1022 PO
== END ==
LOC: M LAB REF 16:11
PROVIDERS: ATTEND Nurse Practitioner Family
DX: R68.89 Other general symptoms and signs (principal)

== ENCOUNTER 2022-02-20 10:08 | Emergency (ER) | payer OTHER ==
[~2022-02-20] VITALS: Ht 172.7 cm; Wt 90.9 kg
[2022-02-20 11:14] LABS: BASO % 0.1 % (0.0-1.0); HEMATOCRIT 41.2 % (36.0-47.0); HEMOGLOBIN 13.3 g/dl (12.0-15.5); LYMPH # 1.9 10^3/uL (1.5-5.0); LYMPH % 20.9 % (24.0-44.0); MEAN CORPUSCULAR HEMOGLOBIN 28.5 pg (27.0-33.0); MEAN CORPUSCULAR HGB CONC 32.3 g/dl (32.0-36.5); MEAN CORPUSCULAR VOLUME 88.2 fl (80.0-96.0); MONO # 0.7 10^3/uL (0.0-0.8); MONO % 7.7 % (2.0-8.0); NEUTROPHILS # 6.5 10^3/uL (1.5-8.5); PLATELET COUNT, AUTOMATED 266 10^3/uL (150-450); RED BLOOD COUNT 4.67 10^6/uL (4.00-5.40); WHITE BLOOD COUNT 9.1 10^3/uL (4.0-10.0)
[2022-02-20 12:55] LABS: ALBUMIN 3.7 GM/DL (3.2-5.2); ALT/SGPT 23 U/L (12-78); BILIRUBIN,DIRECT < 0.1 MG/DL (0.0-0.2); BILIRUBIN,TOTAL 0.3 MG/DL (0.2-1.0); BLOOD UREA NITROGEN 11 MG/DL (7-18); CALCIUM LEVEL 9.2 MG/DL (8.8-10.2); CARBON DIOXIDE LEVEL 26 MEQ/L (21-32); CHLORIDE LEVEL 100 MEQ/L (98-107); CREATININE FOR GFR 0.85 MG/DL (0.55-1.30); GLOMERULAR FILTRATION RATE > 60.0 (>45); GLUCOSE, FASTING 102 MG/DL (70-100); POTASSIUM SERUM 4.5 MEQ/L (3.5-5.1); SODIUM LEVEL 135 MEQ/L (136-145); TOTAL PROTEIN 7.5 GM/DL (6.4-8.2)
[2022-02-20 14:04] LABS: OSMOLALITY SERUM 283 MOSM/KG (280-301)
[2022-02-20 16:00] VITALS: BP 117/64
[2022-02-20] MEDS ORDERED: NITR1CAP11 PO (18:36)
[2022-02-20] MEDS ORDERED: NITROFURANTOIN (MACROBID) 100 MG CAP PO ONE (18:40)
== END 2022-02-20 19:11 | disposition home or self-care (01) ==
LOC: M ED 10:08 → EDBD 10:08 → M ED 19:11
DX: N39.0 Urinary tract infection, site not specified (principal); R41.82 Altered mental status, unspecified; J45.909 Unspecified asthma, uncomplicated; R56.9 Unspecified convulsions; K21.9 Gastro-esophageal reflux disease without esophagitis; F20.9 Schizophrenia, unspecified; F32.9 Major depressive disorder, single episode, unspecified; D53.1 Other megaloblastic anemias, not elsewhere classified; F17.200 Nicotine dependence, unspecified, uncomplicated; Z79.899 Other long term (current) drug therapy

== ENCOUNTER → 2022-06-27 | Outpatient (REF) | payer OTHER ==
[~2022-06-27] MED LIST changes: -ASMA16.7 INH; +MOME13HF4 INH; +MONT-5 PO; +NITR1CAP11 PO; -SING10TA32 PO
[2022-06-27 18:07] LABS: BASO % 0.2 % (0.0-1.0); HEMATOCRIT 40.4 % (36.0-47.0); HEMOGLOBIN 13.1 g/dl (12.0-15.5); LYMPH # 3.3 10^3/uL (1.5-5.0); LYMPH % 30.3 % (24.0-44.0); MEAN CORPUSCULAR HEMOGLOBIN 28.9 pg (27.0-33.0); MEAN CORPUSCULAR HGB CONC 32.4 g/dl (32.0-36.5); MONO # 0.8 10^3/uL (0.0-0.8); MONO % 7.2 % (2.0-8.0); NEUTROPHILS # 6.7 10^3/uL (1.5-8.5); NEUTROPHILS % 61.8 % (36.0-66.0); PLATELET COUNT, AUTOMATED 268 10^3/uL (150-450); RED BLOOD COUNT 4.54 10^6/uL (4.00-5.40); WHITE BLOOD COUNT 10.8 10^3/uL (4.0-10.0)
[2022-06-27 18:34] LABS: ALBUMIN 3.7 G/DL (3.2-5.2); ALKALINE PHOSPHATASE 156 U/L (46-116); ALT/SGPT 19 U/L (7.0-40); AST/SGOT 20 U/L (<34); BILIRUBIN,TOTAL 0.2 MG/DL (0.3-1.2); BLOOD UREA NITROGEN 14 MG/DL (9-23); CALCIUM LEVEL 9.3 MG/DL (8.3-10.6); CARBON DIOXIDE LEVEL 31 MMOL/L (20-31); CHLORIDE LEVEL 101 MMOL/L (98-107); CREATININE FOR GFR 0.86 MG/DL (0.55-1.30); GLOMERULAR FILTRATION RATE > 60.0 (>45); GLUCOSE, FASTING 91 MG/DL (74-106); POTASSIUM SERUM 4.6 MMOL/L (3.5-5.1); SODIUM LEVEL 137 MMOL/L (136-145); TOTAL PROTEIN 7.1 G/DL (5.7-8.2)
== END ==
LOC: M LAB REF 16:54
PROVIDERS: ATTEND Nurse Practitioner Family
DX: R22.0 Localized swelling, mass and lump, head (principal)

== ENCOUNTER → 2022-07-02 | Outpatient (CLI) | payer OTHER | LOC: M RAD 09:40 | PROVIDERS: ATTEND Nurse Practitioner Family | DX: R05.9 Cough, unspecified (principal) ==

== ENCOUNTER → 2022-07-04 | Outpatient (REF) | payer OTHER | LOC: M LAB REF 17:25 | PROVIDERS: ATTEND Nurse Practitioner Family | DX: R53.83 Other fatigue (principal) ==

== ENCOUNTER 2022-09-14 17:46 | Emergency (ER) | payer OTHER ==
[~2022-09-14] VITALS: Ht 172.7 cm; Wt 100.1 kg
[~2022-09-14 17:46] MED LIST changes: +FLUT50SP17; -FLUTISP
[2022-09-14] MEDS ORDERED: methylPREDNISolone 125MG 2ML VIAL IV ONE (18:10)
[2022-09-14] MEDS ORDERED: ALLE180T33 PO (19:04)
[2022-09-14] MEDS ORDERED: PRED10TA2 PO (19:04)
[2022-09-14 19:59] VITALS: BP 134/66; TEMP 98.8; O2SAT 96
[2022-09-15] MEDS ORDERED: BUSP10TA79 PO (00:56)
[2022-09-15] MEDS ORDERED: MIRT-10 PO (00:56)
[2022-09-15] MEDS ORDERED: med rec comment (00:58)
== END 2022-09-14 20:04 | disposition home or self-care (01) ==
LOC: EDBD 17:46 → M ED 17:46
DX: R22.0 Localized swelling, mass and lump, head (principal); R56.9 Unspecified convulsions; K21.9 Gastro-esophageal reflux disease without esophagitis; Z79.899 Other long term (current) drug therapy; F17.200 Nicotine dependence, unspecified, uncomplicated
CPT/HCPCS: 96374; 99284; J2930

== ENCOUNTER 2022-09-14 22:19 | Emergency (ER) | payer OTHER ==
[~2022-09-14 22:19] MED LIST changes: +ALLE180T33 PO; +PRED10TA2 PO
[2022-09-14 22:20] VITALS: BP 174/81; TEMP 96.9; O2SAT 95
[2022-09-15] MEDS ORDERED: BUSP10TA79 PO (00:56)
[2022-09-15] MEDS ORDERED: MIRT-10 PO (00:56)
[2022-09-15] MEDS ORDERED: med rec comment (00:58)
[2022-09-15 01:00] LABS: HEMATOCRIT 42.4 % (36.0-47.0); HEMOGLOBIN 13.8 g/dl (12.0-15.5); MEAN CORPUSCULAR HEMOGLOBIN 27.8 pg (27.0-33.0); MEAN CORPUSCULAR HGB CONC 32.5 g/dl (32.0-36.5); MEAN CORPUSCULAR VOLUME 85.3 fl (80.0-96.0); PLATELET COUNT, AUTOMATED 364 10^3/uL (150-450); RED BLOOD COUNT 4.97 10^6/uL (4.00-5.40); WHITE BLOOD COUNT 12.3 10^3/uL (4.0-10.0)
[2022-09-15] MEDS ORDERED: HOME MED LIST COMPLETE! XX SCH (01:10)
[2022-09-15 01:21] LABS: ETHYL ALCOHOL (ETHANOL) < 0.003 % (0.000-0.010)
[2022-09-15 01:22] LABS: ACETAMINOPHEN LEVEL < 2.0 UG/ML (10.0-20.0)
[2022-09-15 01:23] LABS: ALBUMIN 4.2 G/DL (3.2-5.2); ALKALINE PHOSPHATASE 156 U/L (46-116); ALT/SGPT 28 U/L (7.0-40); AST/SGOT 28 U/L (<34); BILIRUBIN,DIRECT 0.1 MG/DL (<0.4); BILIRUBIN,TOTAL 0.4 MG/DL (0.3-1.2); BLOOD UREA NITROGEN 10 MG/DL (9-23); CALCIUM LEVEL 9.6 MG/DL (8.3-10.6); CARBON DIOXIDE LEVEL 25 MMOL/L (20-31); CHLORIDE LEVEL 99 MMOL/L (98-107); CREATININE FOR GFR 0.77 MG/DL (0.55-1.30); GLOMERULAR FILTRATION RATE > 60.0 (>45); GLUCOSE, FASTING 139 MG/DL (74-106); POTASSIUM SERUM 3.6 MMOL/L (3.5-5.1); SALICYLATE LEVEL < 3.0 MG/DL (<30); SODIUM LEVEL 135 MMOL/L (136-145); TOTAL PROTEIN 8.2 G/DL (5.7-8.2)
[2022-09-15 01:25] LABS: THYROID STIMULATING HORMONE 0.754 uIU/ML (0.55-4.78)
== END 2022-09-15 02:22 | disposition home or self-care (01) ==
LOC: M ED 22:19
DX: R44.0 Auditory hallucinations (principal); K21.9 Gastro-esophageal reflux disease without esophagitis; F32.A Depression, unspecified; F20.9 Schizophrenia, unspecified; K44.9 Diaphragmatic hernia without obstruction or gangrene; E78.5 Hyperlipidemia, unspecified; F17.200 Nicotine dependence, unspecified, uncomplicated; G40.909 Epilepsy, unspecified, not intractable, without status epilepticus; Z79.899 Other long term (current) drug therapy

== ENCOUNTER 2022-09-16 16:34 | Inpatient (IN) | payer OTHER ==
[~2022-09-16] VITALS: Ht 172.7 cm; Wt 97.5 kg
[~2022-09-16 16:34] MED LIST changes: +BUSP10TA79 PO; +MIRT-10 PO; +med rec comment
[2022-09-16 18:30] LABS: HEMATOCRIT 38.3 % (36.0-47.0); HEMOGLOBIN 12.9 g/dl (12.0-15.5); MEAN CORPUSCULAR HEMOGLOBIN 28.2 pg (27.0-33.0); MEAN CORPUSCULAR HGB CONC 33.7 g/dl (32.0-36.5); MEAN CORPUSCULAR VOLUME 83.8 fl (80.0-96.0); PLATELET COUNT, AUTOMATED 337 10^3/uL (150-450); RED BLOOD COUNT 4.57 10^6/uL (4.00-5.40); WHITE BLOOD COUNT 10.2 10^3/uL (4.0-10.0)
[2022-09-16 18:53] LABS: ETHYL ALCOHOL (ETHANOL) 0.004 % (0.000-0.010)
[2022-09-16 18:55] LABS: SALICYLATE LEVEL < 3.0 MG/DL (<30)
[2022-09-16 18:56] LABS: ACETAMINOPHEN LEVEL < 2.0 UG/ML (10.0-20.0)
[2022-09-16 18:57] LABS: THYROID STIMULATING HORMONE 1.857 uIU/ML (0.55-4.78)
[2022-09-16 19:03] LABS: ALKALINE PHOSPHATASE 130 U/L (46-116); ALT/SGPT 22 U/L (7.0-40); AST/SGOT 23 U/L (<34); BILIRUBIN,DIRECT 0.1 MG/DL (<0.4); BILIRUBIN,TOTAL 0.3 MG/DL (0.3-1.2); BLOOD UREA NITROGEN 11 MG/DL (9-23); CALCIUM LEVEL 9.3 MG/DL (8.3-10.6); CARBON DIOXIDE LEVEL 25 MMOL/L (20-31); CHLORIDE LEVEL 101 MMOL/L (98-107); CREATININE FOR GFR 0.79 MG/DL (0.55-1.30); GLOMERULAR FILTRATION RATE > 60.0 (>45); GLUCOSE, FASTING 97 MG/DL (74-106); POTASSIUM SERUM 3.6 MMOL/L (3.5-5.1); SODIUM LEVEL 136 MMOL/L (136-145); TOTAL PROTEIN 7.3 G/DL (5.7-8.2)
[2022-09-16 19:39] LABS: AMPHETAMINES LEVEL URINE NEGATIVE (NEGATIVE); CANNABINOIDS URINE NEGATIVE (NEGATIVE); METHADONE URINE NEGATIVE (NEGATIVE); OPIATES URINE NEGATIVE (NEGATIVE); PHENCYCLIDINE URINE NEGATIVE (NEGATIVE)
[2022-09-16 19:40] LABS: BARBITURATES URINE NEGATIVE (NEGATIVE); BENZODIAZEPINES URINE NEGATIVE (NEGATIVE); COCAINE METABOLITE URINE NEGATIVE (NEGATIVE)
[2022-09-16] MEDS ORDERED: HOME MED LIST COMPLETE! XX SCH (20:50)
[2022-09-16] MEDS ORDERED: levETIRAcetam 250MG TABLET (KEPPRA) PO SCH (21:00)
[2022-09-16] MEDS ORDERED: MAALOX 30 ML SUSP *UDC PO PRN (21:55)
[2022-09-16] MEDS ORDERED: OLANZapine ORAL DISINTEGRATING TAB 5MG PO PRN (21:55)
[2022-09-16] MEDS ORDERED: NICOTINE 21MG/24HR 1 EA TRANSDERMAL TD PRN (21:55)
[2022-09-16] MEDS: ATORVASTATIN 20 MG TAB PO SCH (22:58)
[2022-09-16] MEDS: levETIRAcetam 250MG TABLET (KEPPRA) PO SCH (22:58)
[2022-09-16] MEDS: MIRTAZAPINE 15 MG TAB PO SCH (22:58)
[2022-09-16 23:06] VITALS: BP 155/60; TEMP 97.7; O2SAT 98
[2022-09-17 06:56] VITALS: BP 134/85; TEMP 97.3; O2SAT 96
[2022-09-17] MEDS: CETIRIZINE (ZyrTEC) 10 MG TAB PO SCH (09:07)
[2022-09-17] MEDS: MONTELUKAST 10 MG TAB PO SCH (09:07)
[2022-09-17] MEDS: levETIRAcetam 250MG TABLET (KEPPRA) PO SCH ×2 (09:07→21:28)
[2022-09-17] MEDS: busPIRone 10 MG TAB PO SCH (09:08)
[2022-09-17] MEDS: FOLIC ACID 1MG TAB PO SCH (09:08)
[2022-09-17] MEDS: buPROPion (WELLBUTRIN SR) 100 MG SR TAB PO SCH (09:08)
[2022-09-17] MEDS: SERTRALINE 100 MG TAB PO SCH (09:08)
[2022-09-17 16:10] VITALS: BP 106/58; TEMP 97.4; O2SAT 100
[2022-09-17] MEDS: MIRTAZAPINE 15 MG TAB PO SCH (21:28)
[2022-09-17] MEDS: ATORVASTATIN 20 MG TAB PO SCH (21:28)
[2022-09-18 06:35] VITALS: BP 127/79; TEMP 97; O2SAT 96
[2022-09-18 07:19] LABS: CHOLESTEROL RISK RATIO 3.83 (<5); HDL CHOLESTEROL 35.2 MG/DL (>40); LDL CHOLESTEROL 78.2 MG/DL (<100); NON-HDL-C 99.8 MG/DL
[2022-09-18] MEDS: buPROPion (WELLBUTRIN SR) 100 MG SR TAB PO SCH (09:17)
[2022-09-18] MEDS: SERTRALINE 100 MG TAB PO SCH (09:17)
[2022-09-18] MEDS: CETIRIZINE (ZyrTEC) 10 MG TAB PO SCH (09:17)
[2022-09-18] MEDS: MONTELUKAST 10 MG TAB PO SCH (09:18)
[2022-09-18] MEDS: FOLIC ACID 1MG TAB PO SCH (09:18)
[2022-09-18] MEDS: levETIRAcetam 250MG TABLET (KEPPRA) PO SCH ×2 (09:18→21:12)
[2022-09-18] MEDS: busPIRone 10 MG TAB PO SCH (09:18)
[2022-09-18] MEDS: OMEGA-3 1000MG CAPSULE PO SCH ×2 (11:12→21:12)
[2022-09-18] MEDS: OLANZapine 2.5MG TABLET PO SCH ×2 (11:12→21:12)
[2022-09-18 16:02] VITALS: BP 109/58; TEMP 97.9; O2SAT 96
[2022-09-18] MEDS: MIRTAZAPINE 15 MG TAB PO SCH (21:11)
[2022-09-18] MEDS: ATORVASTATIN 20 MG TAB PO SCH (21:12)
[2022-09-19 06:08] VITALS: BP 110/58; TEMP 97.2; O2SAT 96
[2022-09-19] MEDS: MONTELUKAST 10 MG TAB PO SCH (09:38)
[2022-09-19] MEDS: CETIRIZINE (ZyrTEC) 10 MG TAB PO SCH (09:38)
[2022-09-19] MEDS: buPROPion (WELLBUTRIN SR) 100 MG SR TAB PO SCH (09:38)
[2022-09-19] MEDS: OLANZapine 2.5MG TABLET PO SCH ×2 (09:39→20:58)
[2022-09-19] MEDS: busPIRone 10 MG TAB PO SCH (09:39)
[2022-09-19] MEDS: levETIRAcetam 250MG TABLET (KEPPRA) PO SCH ×2 (09:39→20:58)
[2022-09-19] MEDS: SERTRALINE 100 MG TAB PO SCH (09:40)
[2022-09-19] MEDS: OMEGA-3 1000MG CAPSULE PO SCH ×2 (09:40→20:57)
[2022-09-19] MEDS: FOLIC ACID 1MG TAB PO SCH (09:41)
[2022-09-19] MEDS: diphenhydrAMINE 25MG CAP PO PRN (14:25)
[2022-09-19] MEDS: ACETAMINOPHEN TAB 650MG DOSE (2X325MG) PO PRN (15:46)
[2022-09-19 17:44] LABS: BASO % 0.1 % (0.0-1.0); HEMATOCRIT 37.1 % (36.0-47.0); HEMOGLOBIN 11.9 g/dl (12.0-15.5); LYMPH # 2.6 10^3/uL (1.5-5.0); LYMPH % 32.1 % (24.0-44.0); MEAN CORPUSCULAR HEMOGLOBIN 27.6 pg (27.0-33.0); MEAN CORPUSCULAR HGB CONC 32.1 g/dl (32.0-36.5); MEAN CORPUSCULAR VOLUME 86.1 fl (80.0-96.0); MONO # 0.7 10^3/uL (0.0-0.8); MONO % 8.2 % (2.0-8.0); NEUTROPHILS # 4.8 10^3/uL (1.5-8.5); NEUTROPHILS % 59.2 % (36.0-66.0); PLATELET COUNT, AUTOMATED 295 10^3/uL (150-450); RED BLOOD COUNT 4.31 10^6/uL (4.00-5.40); WHITE BLOOD COUNT 8.1 10^3/uL (4.0-10.0)
[2022-09-19 18:06] LABS: ALBUMIN 3.4 G/DL (3.2-5.2); ALKALINE PHOSPHATASE 113 U/L (46-116); ALT/SGPT 16 U/L (7.0-40); AST/SGOT 10 U/L (<34); BILIRUBIN,TOTAL 0.2 MG/DL (0.3-1.2); BLOOD UREA NITROGEN 15 MG/DL (9-23); CALCIUM LEVEL 9.2 MG/DL (8.3-10.6); CARBON DIOXIDE LEVEL 26 MMOL/L (20-31); CHLORIDE LEVEL 105 MMOL/L (98-107); CREATININE FOR GFR 0.77 MG/DL (0.55-1.30); GLOMERULAR FILTRATION RATE > 60.0 (>45); GLUCOSE, FASTING 89 MG/DL (74-106); POTASSIUM SERUM 4.2 MMOL/L (3.5-5.1); SODIUM LEVEL 138 MMOL/L (136-145); TOTAL PROTEIN 6.4 G/DL (5.7-8.2)
[2022-09-19 18:33] VITALS: BP 129/75; TEMP 96.6; O2SAT 95
[2022-09-19] MEDS: ATORVASTATIN 20 MG TAB PO SCH (20:57)
[2022-09-19] MEDS: MIRTAZAPINE 15 MG TAB PO SCH (20:58)
[2022-09-20 06:02] VITALS: BP 135/60; TEMP 97.5; O2SAT 98
[2022-09-20] MEDS: OLANZapine 2.5MG TABLET PO SCH (09:00)
[2022-09-20] MEDS: OMEGA-3 1000MG CAPSULE PO SCH ×2 (09:23→21:44)
[2022-09-20] MEDS: SERTRALINE 100 MG TAB PO SCH (09:23)
[2022-09-20] MEDS: busPIRone 10 MG TAB PO SCH (09:23)
[2022-09-20] MEDS: levETIRAcetam 250MG TABLET (KEPPRA) PO SCH ×2 (09:23→21:44)
[2022-09-20] MEDS: MONTELUKAST 10 MG TAB PO SCH (09:23)
[2022-09-20] MEDS: buPROPion (WELLBUTRIN SR) 100 MG SR TAB PO SCH (09:23)
[2022-09-20] MEDS: FOLIC ACID 1MG TAB PO SCH (09:23)
[2022-09-20] MEDS: CETIRIZINE (ZyrTEC) 10 MG TAB PO SCH (09:24)
[2022-09-20] MEDS ORDERED: ONDANSETRON 4MG TAB PO PRN (09:40)
[2022-09-20 16:56] VITALS: BP 112/56; TEMP 97.6; O2SAT 97
[2022-09-20] MEDS: ATORVASTATIN 20 MG TAB PO SCH (21:44)
[2022-09-20] MEDS: MIRTAZAPINE 15 MG TAB PO SCH (21:44)
[2022-09-21 06:36] VITALS: BP 139/64; TEMP 97.9; O2SAT 96
[2022-09-21] MEDS: busPIRone 10 MG TAB PO SCH (08:52)
[2022-09-21] MEDS: CETIRIZINE (ZyrTEC) 10 MG TAB PO SCH (08:52)
[2022-09-21] MEDS: buPROPion (WELLBUTRIN SR) 100 MG SR TAB PO SCH (08:52)
[2022-09-21] MEDS: FOLIC ACID 1MG TAB PO SCH (08:52)
[2022-09-21] MEDS: OMEGA-3 1000MG CAPSULE PO SCH ×2 (08:52→21:13)
[2022-09-21] MEDS: SERTRALINE 100 MG TAB PO SCH (08:52)
[2022-09-21] MEDS: MONTELUKAST 10 MG TAB PO SCH (08:52)
[2022-09-21] MEDS: levETIRAcetam 250MG TABLET (KEPPRA) PO SCH ×2 (08:53→21:13)
[2022-09-21 16:15] VITALS: BP 130/74; TEMP 98.4; O2SAT 96
[2022-09-21] MEDS: ATORVASTATIN 20 MG TAB PO SCH (21:13)
[2022-09-21] MEDS: MIRTAZAPINE 15 MG TAB PO SCH (21:13)
[2022-09-22 06:45] VITALS: BP 110/64; TEMP 96.8; O2SAT 95
[2022-09-22] MEDS: CETIRIZINE (ZyrTEC) 10 MG TAB PO SCH (08:56)
[2022-09-22] MEDS: buPROPion (WELLBUTRIN SR) 100 MG SR TAB PO SCH (08:56)
[2022-09-22] MEDS: FOLIC ACID 1MG TAB PO SCH (08:56)
[2022-09-22] MEDS: SERTRALINE 100 MG TAB PO SCH (08:56)
[2022-09-22] MEDS: levETIRAcetam 250MG TABLET (KEPPRA) PO SCH ×2 (08:56→21:37)
[2022-09-22] MEDS: OMEGA-3 1000MG CAPSULE PO SCH ×2 (08:56→21:36)
[2022-09-22] MEDS: MONTELUKAST 10 MG TAB PO SCH (08:56)
[2022-09-22] MEDS: busPIRone 10 MG TAB PO SCH (08:56)
[2022-09-22 16:13] VITALS: BP 106/58; TEMP 97.8; O2SAT 96
[2022-09-22] MEDS: ATORVASTATIN 20 MG TAB PO SCH (21:36)
[2022-09-22] MEDS: MIRTAZAPINE 15 MG TAB PO SCH (21:36)
[2022-09-23 06:33] VITALS: BP 129/72; TEMP 97.9; O2SAT 95
[2022-09-23] MEDS: SERTRALINE 100 MG TAB PO SCH (09:34)
[2022-09-23] MEDS: busPIRone 10 MG TAB PO SCH (09:34)
[2022-09-23] MEDS: CETIRIZINE (ZyrTEC) 10 MG TAB PO SCH (09:34)
[2022-09-23] MEDS: FOLIC ACID 1MG TAB PO SCH (09:34)
[2022-09-23] MEDS: MONTELUKAST 10 MG TAB PO SCH (09:34)
[2022-09-23] MEDS: levETIRAcetam 250MG TABLET (KEPPRA) PO SCH ×2 (09:34→21:15)
[2022-09-23] MEDS: buPROPion (WELLBUTRIN SR) 100 MG SR TAB PO SCH (09:34)
[2022-09-23] MEDS: OMEGA-3 1000MG CAPSULE PO SCH ×2 (09:34→21:15)
[2022-09-23 18:00] VITALS: BP 117/53; TEMP 96.8; O2SAT 96
[2022-09-23] MEDS: ATORVASTATIN 20 MG TAB PO SCH (21:15)
[2022-09-23] MEDS: MIRTAZAPINE 15 MG TAB PO SCH (21:15)
[2022-09-24 05:57] VITALS: BP 111/58; TEMP 97.9; O2SAT 92
[2022-09-24] MEDS: OMEGA-3 1000MG CAPSULE PO SCH ×2 (08:44→21:02)
[2022-09-24] MEDS: busPIRone 10 MG TAB PO SCH (08:44)
[2022-09-24] MEDS: FOLIC ACID 1MG TAB PO SCH (08:44)
[2022-09-24] MEDS: SERTRALINE 100 MG TAB PO SCH (08:44)
[2022-09-24] MEDS: CETIRIZINE (ZyrTEC) 10 MG TAB PO SCH (08:45)
[2022-09-24] MEDS: levETIRAcetam 250MG TABLET (KEPPRA) PO SCH ×2 (08:45→21:02)
[2022-09-24] MEDS: buPROPion (WELLBUTRIN SR) 100 MG SR TAB PO SCH (08:45)
[2022-09-24] MEDS: MONTELUKAST 10 MG TAB PO SCH (08:45)
[2022-09-24] MEDS ORDERED: ARIPIPRAZOLE LAUROXIL IM SCH (09:00)
[2022-09-24 17:47] VITALS: BP 105/60; TEMP 98
[2022-09-24] MEDS: ATORVASTATIN 20 MG TAB PO SCH (21:02)
[2022-09-24] MEDS: ACETAMINOPHEN TAB 650MG DOSE (2X325MG) PO PRN (21:02)
[2022-09-24] MEDS: MIRTAZAPINE 15 MG TAB PO SCH (21:02)
[2022-09-25 05:57] VITALS: BP 112/59; TEMP 97; O2SAT 94
[2022-09-25] MEDS: SERTRALINE 100 MG TAB PO SCH (08:41)
[2022-09-25] MEDS: levETIRAcetam 250MG TABLET (KEPPRA) PO SCH ×2 (08:41→20:35)
[2022-09-25] MEDS: buPROPion (WELLBUTRIN SR) 100 MG SR TAB PO SCH (08:41)
[2022-09-25] MEDS: FOLIC ACID 1MG TAB PO SCH (08:42)
[2022-09-25] MEDS: MONTELUKAST 10 MG TAB PO SCH (08:42)
[2022-09-25] MEDS: busPIRone 10 MG TAB PO SCH (08:42)
[2022-09-25] MEDS: CETIRIZINE (ZyrTEC) 10 MG TAB PO SCH (08:42)
[2022-09-25] MEDS: OMEGA-3 1000MG CAPSULE PO SCH ×2 (08:42→20:34)
[2022-09-25] MEDS: diphenhydrAMINE 25MG CAP PO PRN (13:21)
[2022-09-25 18:06] VITALS: BP 150/84; TEMP 97.7
[2022-09-25] MEDS: ATORVASTATIN 20 MG TAB PO SCH (20:34)
[2022-09-25] MEDS: traZODone 50 MG TAB PO PRN (20:34)
[2022-09-25] MEDS ORDERED: MIRTAZAPINE 7.5MG PER 1/2 TABLET PO SCH (21:00)
[2022-09-26 07:01] VITALS: BP 148/73; TEMP 97.8; O2SAT 94
[2022-09-26] MEDS: MONTELUKAST 10 MG TAB PO SCH (08:54)
[2022-09-26] MEDS: CETIRIZINE (ZyrTEC) 10 MG TAB PO SCH (08:54)
[2022-09-26] MEDS: buPROPion (WELLBUTRIN SR) 100 MG SR TAB PO SCH (08:54)
[2022-09-26] MEDS: busPIRone 10 MG TAB PO SCH (08:55)
[2022-09-26] MEDS: levETIRAcetam 250MG TABLET (KEPPRA) PO SCH ×2 (08:55→20:54)
[2022-09-26] MEDS: SERTRALINE HCL 50 MG TAB PO SCH (08:56)
[2022-09-26] MEDS: OMEGA-3 1000MG CAPSULE PO SCH ×2 (08:56→20:54)
[2022-09-26] MEDS: FOLIC ACID 1MG TAB PO SCH (08:56)
[2022-09-26] MEDS ORDERED: ARIPIPRAZOLE LAUROXIL IM SCH (09:00)
[2022-09-26] MEDS: MOM 30ML SUSPENSION UDC PO PRN (10:46)
[2022-09-26 17:06] VITALS: BP 126/61; TEMP 97.5; O2SAT 95
[2022-09-26] MEDS: traZODone 50 MG TAB PO PRN (20:54)
[2022-09-26] MEDS: ATORVASTATIN 20 MG TAB PO SCH (20:54)
[2022-09-27 06:30] VITALS: BP 101/52; TEMP 97.6; O2SAT 94
[2022-09-27] MEDS: busPIRone 10 MG TAB PO SCH (09:00)
[2022-09-27] MEDS: CETIRIZINE (ZyrTEC) 10 MG TAB PO SCH (09:00)
[2022-09-27] MEDS: buPROPion (WELLBUTRIN SR) 100 MG SR TAB PO SCH (09:00)
[2022-09-27] MEDS: MONTELUKAST 10 MG TAB PO SCH (09:00)
[2022-09-27] MEDS: levETIRAcetam 250MG TABLET (KEPPRA) PO SCH ×2 (09:01→20:53)
[2022-09-27] MEDS: SERTRALINE HCL 50 MG TAB PO SCH (09:02)
[2022-09-27] MEDS: OMEGA-3 1000MG CAPSULE PO SCH ×2 (09:02→20:53)
[2022-09-27] MEDS: FOLIC ACID 1MG TAB PO SCH (09:02)
[2022-09-27] MEDS: MOM 30ML SUSPENSION UDC PO PRN (11:10)
[2022-09-27 17:54] VITALS: BP 142/86; TEMP 98.5; O2SAT 94
[2022-09-27] MEDS: ATORVASTATIN 20 MG TAB PO SCH (20:53)
[2022-09-28 06:25] VITALS: BP 107/52; TEMP 97.2; O2SAT 93
[2022-09-28] MEDS: MONTELUKAST 10 MG TAB PO SCH (09:47)
[2022-09-28] MEDS: buPROPion (WELLBUTRIN SR) 100 MG SR TAB PO SCH (09:47)
[2022-09-28] MEDS: SERTRALINE HCL 50 MG TAB PO SCH (09:48)
[2022-09-28] MEDS: busPIRone 10 MG TAB PO SCH (09:48)
[2022-09-28] MEDS: OMEGA-3 1000MG CAPSULE PO SCH ×2 (09:48→20:04)
[2022-09-28] MEDS: FOLIC ACID 1MG TAB PO SCH (09:48)
[2022-09-28] MEDS: levETIRAcetam 250MG TABLET (KEPPRA) PO SCH ×2 (09:49→20:04)
[2022-09-28] MEDS: CETIRIZINE (ZyrTEC) 10 MG TAB PO SCH (09:49)
[2022-09-28 11:27] VITALS: BP 126/75; TEMP 97.8; O2SAT 96
[2022-09-28 18:00] VITALS: BP 150/82; TEMP 96.9
[2022-09-28] MEDS: traZODone 50 MG TAB PO PRN (20:04)
[2022-09-28] MEDS: ATORVASTATIN 20 MG TAB PO SCH (20:04)
[2022-09-29 06:49] VITALS: BP 105/57; TEMP 97.9; O2SAT 93
[2022-09-29] MEDS: busPIRone 10 MG TAB PO SCH (08:53)
[2022-09-29] MEDS: buPROPion (WELLBUTRIN SR) 100 MG SR TAB PO SCH (08:53)
[2022-09-29] MEDS: SERTRALINE HCL 50 MG TAB PO SCH (08:53)
[2022-09-29] MEDS: MONTELUKAST 10 MG TAB PO SCH (08:53)
[2022-09-29] MEDS: OMEGA-3 1000MG CAPSULE PO SCH ×2 (08:53→21:26)
[2022-09-29] MEDS: CETIRIZINE (ZyrTEC) 10 MG TAB PO SCH (08:53)
[2022-09-29] MEDS: FOLIC ACID 1MG TAB PO SCH (08:53)
[2022-09-29] MEDS: levETIRAcetam 250MG TABLET (KEPPRA) PO SCH ×2 (08:54→21:26)
[2022-09-29 18:00] VITALS: BP 150/76; TEMP 98
[2022-09-29] MEDS: ATORVASTATIN 20 MG TAB PO SCH (21:26)
[2022-09-29] MEDS: traZODone 50 MG TAB PO PRN (21:26)
[2022-09-30 06:49] VITALS: BP 104/64; TEMP 96.3; O2SAT 100
[2022-09-30] MEDS: FOLIC ACID 1MG TAB PO SCH (08:08)
[2022-09-30] MEDS: buPROPion (WELLBUTRIN SR) 100 MG SR TAB PO SCH (08:08)
[2022-09-30] MEDS: busPIRone 10 MG TAB PO SCH (08:09)
[2022-09-30] MEDS: CETIRIZINE (ZyrTEC) 10 MG TAB PO SCH (08:09)
[2022-09-30] MEDS: SERTRALINE HCL 50 MG TAB PO SCH (08:09)
[2022-09-30] MEDS: MONTELUKAST 10 MG TAB PO SCH (08:09)
[2022-09-30] MEDS: levETIRAcetam 250MG TABLET (KEPPRA) PO SCH ×2 (08:09→20:11)
[2022-09-30] MEDS: OMEGA-3 1000MG CAPSULE PO SCH ×2 (08:09→20:11)
[2022-09-30 15:46] VITALS: BP 157/82; TEMP 98.5; O2SAT 94
[2022-09-30] MEDS: ATORVASTATIN 20 MG TAB PO SCH (20:11)
[2022-10-01 06:52] VITALS: BP 132/73; TEMP 97.1; O2SAT 95
[2022-10-01] MEDS: FOLIC ACID 1MG TAB PO SCH (08:16)
[2022-10-01] MEDS: levETIRAcetam 250MG TABLET (KEPPRA) PO SCH (08:16)
[2022-10-01] MEDS: CETIRIZINE (ZyrTEC) 10 MG TAB PO SCH (08:16)
[2022-10-01] MEDS: buPROPion (WELLBUTRIN SR) 100 MG SR TAB PO SCH (08:16)
[2022-10-01] MEDS: MONTELUKAST 10 MG TAB PO SCH (08:16)
[2022-10-01] MEDS: busPIRone 10 MG TAB PO SCH (08:16)
[2022-10-01] MEDS: OMEGA-3 1000MG CAPSULE PO SCH (08:17)
[2022-10-01] MEDS: SERTRALINE HCL 50 MG TAB PO SCH (08:17)
[2022-10-01 09:16] VITALS: BP 132/73; TEMP 97.1; O2SAT 95
[2022-10-01] MEDS ORDERED: ARIS1.6I INJ (10:03)
[2022-10-01] MEDS ORDERED: NICO21PAT TD (10:03)
[2022-10-01] MEDS ORDERED: TRAZ-252 PO (10:03)
[2022-10-01] MEDS ORDERED: BUSP10TA79 PO (10:03)
[2022-10-01] MEDS ORDERED: FISH1CAP26 PO (10:03)
[2022-10-01] MEDS ORDERED: BUPR10TASR PO (10:03)
[2022-10-01] MEDS ORDERED: SERT150C PO (10:03)
== END 2022-10-01 12:54 | disposition home or self-care (01) | DRG 750 ==
LOC: M ED 16:34 → M PSY 21:52
PROVIDERS: ADMIT Student in an Organized Health Care Education/Training Program; ATTEND Student in an Organized Health Care Education/Training Program
DX: F25.1 Schizoaffective disorder, depressive type (principal); J30.9 Allergic rhinitis, unspecified; E78.5 Hyperlipidemia, unspecified; G40.909 Epilepsy, unspecified, not intractable, without status epilepticus; Z91.128 Patient's intentional underdosing of medication regimen for other reason; Z79.899 Other long term (current) drug therapy; Z87.891 Personal history of nicotine dependence; H05.221 Edema of right orbit; R45.851 Suicidal ideations

== ENCOUNTER → 2023-02-05 | Outpatient (REF) | payer OTHER, MEDICAID ==
[~2023-02-05] MED LIST changes: +BUPR10TASR PO; +FISH1CAP26 PO; +NICO21PAT TD; -OXYB5TAB10 PO; +OXYB5TAB11 PO; +SERT150C PO
== END ==
LOC: M LAB REF 12:51
PROVIDERS: ATTEND Nurse Practitioner Family
DX: Z11.9 Encounter for screening for infectious and parasitic diseases, unspecified (principal)

== ENCOUNTER → 2023-08-05 | Outpatient (REF) | payer OTHER ==
[~2023-08-05] MED LIST changes: -FLUT50SP17; +FLUTISP; -MIRT-60 PO; +MIRT-89 PO; -OXYB5TAB11 PO; +OXYB5TAB14 PO; +RISP-106 PO; -RISP-9 PO
[2023-08-05 18:40] LABS: BASO % 0.1 % (0.0-1.0); HEMATOCRIT 41.8 % (36.0-47.0); HEMOGLOBIN 13.5 g/dl (12.0-15.5); LYMPH # 2.6 10^3/uL (1.5-5.0); LYMPH % 28.7 % (24.0-44.0); MEAN CORPUSCULAR HEMOGLOBIN 29.3 pg (27.0-33.0); MEAN CORPUSCULAR HGB CONC 32.3 g/dl (32.0-36.5); MEAN CORPUSCULAR VOLUME 90.7 fl (80.0-96.0); MONO # 0.6 10^3/uL (0.0-0.8); NEUTROPHILS # 5.7 10^3/uL (1.5-8.5); PLATELET COUNT, AUTOMATED 192 10^3/uL (150-450); RED BLOOD COUNT 4.61 10^6/uL (4.00-5.40); WHITE BLOOD COUNT 8.9 10^3/uL (4.0-10.0)
[2023-08-05 19:02] LABS: ALBUMIN 4.2 G/DL (3.2-5.2); ALKALINE PHOSPHATASE 145 U/L (46-116); ALT/SGPT 23 U/L (7.0-40); AST/SGOT 27 U/L (<34); BILIRUBIN,TOTAL 0.3 MG/DL (0.3-1.2); BLOOD UREA NITROGEN 16 MG/DL (9-23); CALCIUM LEVEL 9.8 MG/DL (8.3-10.6); CARBON DIOXIDE LEVEL 28 MMOL/L (20-31); CHLORIDE LEVEL 103 MMOL/L (98-107); CHOLESTEROL LEVEL 181 MG/DL (<200); CHOLESTEROL RISK RATIO 4.06 (<5); GLOMERULAR FILTRATION RATE 59.6 (>45); GLUCOSE, FASTING 80 MG/DL (74-106); HDL CHOLESTEROL 44.5 MG/DL (>40); IRON (FE) 59 UG/DL (50-170); LDL CHOLESTEROL 104.1 MG/DL (<100); MAGNESIUM LEVEL 2.3 MG/DL (1.8-2.4); NON-HDL-C 136.5 MG/DL; PERCENT SATURATION 18.3 % (13.2-45.0); POTASSIUM SERUM 4.5 MMOL/L (3.5-5.1); SODIUM LEVEL 138 MMOL/L (136-145); TOTAL 25(OH) VITAMIN D 29.6 NG/ML (20.0-100.0); TOTAL IRON BINDING CAPACITY 323 UG/DL (250-425); TOTAL PROTEIN 7.3 G/DL (5.7-8.2); TRIGLYCERIDES LEVEL 162 MG/DL (<150); VITAMIN B12 LEVEL 442 PG/ML (211-911)
[2023-08-05 19:03] LABS: FERRITIN 55.1 NG/ML (7.3-270.7); THYROID STIMULATING HORMONE 1.888 uIU/ML (0.55-4.78)
[2023-08-05 19:05] LABS: FOLATE > 24.0 NG/ML (>5.4)
== END ==
LOC: M LAB REF 16:37
PROVIDERS: ATTEND Nurse Practitioner Family
DX: R39.9 Unspecified symptoms and signs involving the genitourinary system (principal); E66.3 Overweight; E55.9 Vitamin D deficiency, unspecified; D64.9 Anemia, unspecified

== ENCOUNTER 2023-09-15 11:30 | Inpatient (IN) | payer OTHER ==
[~2023-09-15] VITALS: Ht 172.7 cm; Wt 85.8 kg
[~2023-09-15 11:30] MED LIST changes: +NITR100C3 PO; -NITR1CAP11 PO
[2023-09-15 12:22] LABS: HEMATOCRIT 42.4 % (36.0-47.0); HEMOGLOBIN 14.4 g/dl (12.0-15.5); MEAN CORPUSCULAR HEMOGLOBIN 29.4 pg (27.0-33.0); MEAN CORPUSCULAR VOLUME 86.5 fl (80.0-96.0); PLATELET COUNT, AUTOMATED 355 10^3/uL (150-450); WHITE BLOOD COUNT 10.2 10^3/uL (4.0-10.0)
[2023-09-15 12:47] LABS: AMPHETAMINES LEVEL URINE NEGATIVE (NEGATIVE); BARBITURATES URINE NEGATIVE (NEGATIVE); BENZODIAZEPINES URINE NEGATIVE (NEGATIVE); COCAINE METABOLITE URINE NEGATIVE (NEGATIVE); METHADONE URINE NEGATIVE (NEGATIVE); OPIATES URINE NEGATIVE (NEGATIVE); PHENCYCLIDINE URINE NEGATIVE (NEGATIVE)
[2023-09-15 12:49] LABS: CANNABINOIDS URINE POSITIVE (NEGATIVE)
[2023-09-15 12:49] LABS: ETHYL ALCOHOL (ETHANOL) 0.003 % (0.000-0.010)
[2023-09-15 12:51] LABS: ALBUMIN 3.7 G/DL (3.2-5.2); ALKALINE PHOSPHATASE 158 U/L (46-116); ALT/SGPT 24 U/L (7.0-40); AST/SGOT 11 U/L (<34); BILIRUBIN,DIRECT 0.1 MG/DL (<0.4); BILIRUBIN,TOTAL 0.4 MG/DL (0.3-1.2); BLOOD UREA NITROGEN 11 MG/DL (9-23); CALCIUM LEVEL 9.6 MG/DL (8.3-10.6); CARBON DIOXIDE LEVEL 26 MMOL/L (20-31); CHLORIDE LEVEL 104 MMOL/L (98-107); CREATININE FOR GFR 0.76 MG/DL (0.55-1.30); GLOMERULAR FILTRATION RATE > 60.0 (>45); GLUCOSE, FASTING 95 MG/DL (74-106); POTASSIUM SERUM 3.6 MMOL/L (3.5-5.1); SALICYLATE LEVEL < 3.0 MG/DL (<30); SODIUM LEVEL 137 MMOL/L (136-145); TOTAL PROTEIN 7.2 G/DL (5.7-8.2)
[2023-09-15 12:53] LABS: THYROID STIMULATING HORMONE 2.075 uIU/ML (0.55-4.78)
[2023-09-15] MEDS ORDERED: IBUPROFEN 400MG TAB PO PRN (14:50)
[2023-09-15] MEDS ORDERED: MOM 30ML SUSPENSION UDC PO PRN (14:50)
[2023-09-15] MEDS ORDERED: traZODone 50 MG TAB PO PRN (14:50)
[2023-09-15] MEDS ORDERED: OLANZapine 5 MG TAB PO PRN (14:50)
[2023-09-15] MEDS ORDERED: MAALOX 30 ML SUSP *UDC PO PRN (14:50)
[2023-09-15] MEDS ORDERED: BUSP10TA PO (15:41)
[2023-09-15] MEDS ORDERED: ARIS1.6I IM (15:47)
[2023-09-15] MEDS ORDERED: HOME MED LIST COMPLETE! XX SCH (15:55)
[2023-09-15] MEDS: levETIRAcetam 250MG TABLET (KEPPRA) PO ONE (21:01)
[2023-09-16 06:54] VITALS: BP 137/69; TEMP 97.2; O2SAT 96
[2023-09-16] MEDS: NICOTINE 14 MG/24 HR TRANSDERMAL TD SCH (08:37)
[2023-09-16] MEDS: buPROPion (WELLBUTRIN SR) 100 MG SR TAB PO SCH (10:51)
[2023-09-16] MEDS: MONTELUKAST 10 MG TAB PO SCH (10:51)
[2023-09-16] MEDS: ATORVASTATIN 20 MG TAB PO SCH (10:52)
[2023-09-16] MEDS: SERTRALINE 100 MG TAB PO SCH (10:52)
[2023-09-16] MEDS: FOLIC ACID 1MG TAB PO SCH (10:52)
[2023-09-16] MEDS: CETIRIZINE (ZyrTEC) 10 MG TAB PO SCH (10:52)
[2023-09-16] MEDS: levETIRAcetam 250MG TABLET (KEPPRA) PO SCH ×2 (10:52→21:56)
[2023-09-16] MEDS: busPIRone 10 MG TAB PO SCH (10:52)
[2023-09-16 16:18] VITALS: BP 132/75; TEMP 97; O2SAT 94
[2023-09-16] MEDS: MIRTAZAPINE 15 MG TAB PO SCH (21:57)
[2023-09-17 06:35] VITALS: BP 124/64; TEMP 97.8
[2023-09-17 07:54] LABS: CHOLESTEROL RISK RATIO 4.38 (<5); HDL CHOLESTEROL 40.1 MG/DL (>40); LDL CHOLESTEROL 109.7 MG/DL (<100); NON-HDL-C 135.9 MG/DL
[2023-09-17] MEDS: VENLAFAXINE **XR** 37.5 MG CAPSULE PO SCH (09:27)
[2023-09-17 15:57] VITALS: BP 123/69; TEMP 96.9; O2SAT 99
[2023-09-17] MEDS: ACETAMINOPHEN TAB 650MG DOSE (2X325MG) PO PRN (17:00)
[2023-09-18 06:11] VITALS: BP 153/64; TEMP 97.3; O2SAT 96
[2023-09-18 18:33] VITALS: BP 128/69; TEMP 97; O2SAT 98
[2023-09-18] MEDS: levETIRAcetam 250MG TABLET (KEPPRA) PO SCH (21:39)
[2023-09-19 06:00] VITALS: BP 122/66; TEMP 97.8; O2SAT 96
[2023-09-19] MEDS: levETIRAcetam 250MG TABLET (KEPPRA) PO SCH (09:22)
[2023-09-19 15:50] VITALS: BP 136/76; TEMP 97; O2SAT 98
[2023-09-20 06:00] VITALS: BP 126/65; TEMP 97.6; O2SAT 98
[2023-09-20] MEDS: VENLAFAXINE **XR** 75MG CAPSULE PO SCH (09:35)
[2023-09-20 18:00] VITALS: BP 131/76; TEMP 98.2; O2SAT 100
[2023-09-21 06:30] VITALS: BP 119/73; TEMP 97.4; O2SAT 16
[2023-09-21] MEDS ORDERED: PILL CUTTER 1 EACH XX PRN (10:05)
[2023-09-21 18:00] VITALS: BP 125/71; TEMP 97.5; O2SAT 96
[2023-09-21] MEDS: diphenhydrAMINE 25MG CAP PO PRN (21:59)
[2023-09-22 06:00] VITALS: BP 114/63; TEMP 97.5; O2SAT 94
[2023-09-22] MEDS: SERTRALINE HCL 50 MG TAB PO SCH (09:34)
[2023-09-22 18:49] VITALS: BP 121/71; TEMP 97.9
[2023-09-23 06:05] VITALS: BP 133/69; TEMP 97.1; O2SAT 95
[2023-09-23] MEDS: ARIPIPRAZOLE LAUROXIL IM SCH (14:33)
[2023-09-23 16:30] VITALS: BP 120/70; TEMP 97.3; O2SAT 98
[2023-09-24 06:44] VITALS: BP 122/59; TEMP 97.4; O2SAT 95
[2023-09-24] MEDS ORDERED: VENL75CA47 PO (09:52)
[2023-09-24] MEDS ORDERED: KEPP10002 PO (09:52)
[2023-09-24] MEDS ORDERED: ARIS1.6I IM (09:52)
[2023-09-24] MEDS ORDERED: MIRT-10 PO (09:52)
[2023-09-24] MEDS ORDERED: BUSP10TA PO (09:52)
[2023-09-24] MEDS ORDERED: WELL100T2 PO (09:52)
[2023-09-24] MEDS ORDERED: ABIL1TAB11 PO (09:52)
[2023-09-24] MEDS ORDERED: KEPP250T5 PO (09:52)
== END 2023-09-24 11:10 | disposition home or self-care (01) | DRG 750 ==
LOC: M ED 11:30 → M PSY 14:50 → UNDOADMIN 14:50 → M ED INP 14:50
PROVIDERS: ADMIT Student in an Organized Health Care Education/Training Program; ATTEND Student in an Organized Health Care Education/Training Program
DX: F25.1 Schizoaffective disorder, depressive type (principal); E27.8 Other specified disorders of adrenal gland; G40.909 Epilepsy, unspecified, not intractable, without status epilepticus; Z91.148 Patient's other noncompliance with medication regimen for other reason; F12.10 Cannabis abuse, uncomplicated; K21.9 Gastro-esophageal reflux disease without esophagitis; I10 Essential (primary) hypertension; E78.5 Hyperlipidemia, unspecified; J45.909 Unspecified asthma, uncomplicated; Z87.891 Personal history of nicotine dependence; Z79.899 Other long term (current) drug therapy

== ENCOUNTER → 2023-11-10 | Outpatient (REF) | payer OTHER, MEDICAID ==
[~2023-11-10] MED LIST changes: +ABIL1TAB11 PO; +ARIS1.6I IM; +VENL75CA47 PO
[2023-11-10 18:18] LABS: BASO % 0.1 % (0.0-1.0); HEMATOCRIT 40.5 % (36.0-47.0); HEMOGLOBIN 13.2 g/dl (12.0-15.5); LYMPH # 2.4 10^3/uL (1.5-5.0); LYMPH % 30.9 % (24.0-44.0); MEAN CORPUSCULAR HEMOGLOBIN 28.8 pg (27.0-33.0); MEAN CORPUSCULAR HGB CONC 32.6 g/dl (32.0-36.5); MEAN CORPUSCULAR VOLUME 88.2 fl (80.0-96.0); MONO # 0.6 10^3/uL (0.0-0.8); MONO % 7.3 % (2.0-8.0); NEUTROPHILS # 4.8 10^3/uL (1.5-8.5); NEUTROPHILS % 61.4 % (36.0-66.0); PLATELET COUNT, AUTOMATED 209 10^3/uL (150-450); RED BLOOD COUNT 4.59 10^6/uL (4.00-5.40); WHITE BLOOD COUNT 7.8 10^3/uL (4.0-10.0)
[2023-11-10 18:49] LABS: BILIRUBIN,TOTAL 0.4 MG/DL (0.3-1.2); CALCIUM LEVEL 9.4 MG/DL (8.3-10.6); CREATININE FOR GFR 1.01 MG/DL (0.55-1.30); GLOMERULAR FILTRATION RATE 58.9 (>45); MAGNESIUM LEVEL 2.2 MG/DL (1.8-2.4); POTASSIUM SERUM 4.2 MMOL/L (3.5-5.1); TOTAL PROTEIN 7.3 G/DL (5.7-8.2)
[2023-11-10 18:56] LABS: HEMOGLOBIN A1c 5.5 % (4.0-6.0)
== END ==
LOC: M LAB REF 16:20
PROVIDERS: ATTEND Family Medicine Addiction Medicine
DX: E66.3 Overweight (principal)

== ENCOUNTER → 2024-02-12 | Outpatient (REF) | payer OTHER ==
[~2024-02-12] MED LIST changes: -ARIP10TA32; +ARIP10TA63
== END ==
LOC: M LAB REF 16:15
PROVIDERS: ATTEND Nurse Practitioner Family
DX: R39.9 Unspecified symptoms and signs involving the genitourinary system (principal)

== ENCOUNTER → 2024-03-08 | Outpatient (REF) | payer OTHER ==
[2024-03-08 19:24] LABS: ALBUMIN 4.4 G/DL (3.2-5.2); BILIRUBIN,TOTAL 0.7 MG/DL (0.3-1.2); CALCIUM LEVEL 10.4 MG/DL (8.3-10.6); CHOLESTEROL RISK RATIO 3.18 (<5); CREATININE FOR GFR 1.1 MG/DL (0.55-1.30); GLOMERULAR FILTRATION RATE 53.2 (>45); HDL CHOLESTEROL 71.8 MG/DL (>40); LDL CHOLESTEROL 128.2 MG/DL (<100); NON-HDL-C 157.2 MG/DL; POTASSIUM SERUM 4.2 MMOL/L (3.5-5.1); TOTAL PROTEIN 8.6 G/DL (5.7-8.2)
== END ==
LOC: M LAB REF 16:51
PROVIDERS: ATTEND Nurse Practitioner Family
DX: E78.5 Hyperlipidemia, unspecified (principal)

== ENCOUNTER 2024-03-31 11:46 | Day surgery (SDC) | payer OTHER ==
[~2024-03-31] VITALS: Ht 172.7 cm; Wt 82.4 kg
[~2024-03-31 11:46] MED LIST changes: +PHENYLEPHRINE 10% OPHTH SOL 5ML OS PRN; +VENL75CA2 PO; +VENTAER INH
[2024-03-31] MEDS ORDERED: fentaNYL 100 MCG/2 ML INJECTION As Ordered ONE (11:57)
[2024-03-31] MEDS ORDERED: MIDAZOLAM INJ 2MG/2ML VIAL As Ordered ONE (11:57)
[2024-03-31] MEDS: LIDOCAINE 3.5 % 1ML OPHTH TOPICAL GEL OU ONE (12:10)
[2024-03-31] MEDS: TROPICAMIDE 1% OPHTH SOLN 15ML OS SCH (12:10)
[2024-03-31] MEDS: OFLOXACIN 0.3 % (OCUFLOX) OPTH SOL 5ML OS ONE (12:10)
[2024-03-31] MEDS: PHENYLEPHRINE 2.5% OPHTH SOL 2ML OS SCH (12:10)
[2024-03-31] MEDS: CYCLOPENTOLATE 1% OPHTH SOLN 2ML BTL OS SCH (12:10)
[2024-03-31] MEDS: CEFUROXIME 1MG/0.1ML INTRACAMERAL INJ As Ordered ONE (13:30)
[2024-03-31] MEDS: LIDOCAINE 1% SDV 5ML VIAL As Ordered ONE (13:30)
[2024-03-31] MEDS: TRYPAN BLUE 0.06 % 2.25 ML OPHTH SYR (VISIONBLUE) As Ordered ONE (13:31)
[2024-03-31] MEDS: BSS IRRIG/VANCO(10MG)/TOBRA(5MG)/EPINEPH(1:1000-0.5CC)500ML BAG-ORONLY As Ordered ONE (13:31)
[2024-03-31 13:45] VITALS: BP 129/60; TEMP 97.1; O2SAT 97
== END 2024-03-31 14:33 | disposition home or self-care (01) ==
LOC: M SDC 11:46
PROVIDERS: ATTEND Ophthalmology
DX: H25.9 Unspecified age-related cataract (principal); J45.909 Unspecified asthma, uncomplicated; R56.9 Unspecified convulsions; E78.00 Pure hypercholesterolemia, unspecified; Z79.899 Other long term (current) drug therapy; Z90.711 Acquired absence of uterus with remaining cervical stump; Z90.49 Acquired absence of other specified parts of digestive tract; Z87.891 Personal history of nicotine dependence
CPT/HCPCS: 66984; J0697; J2250; J3010; V2632

== ENCOUNTER 2024-04-21 05:52 | Day surgery (SDC) | payer OTHER ==
[~2024-04-21] VITALS: Ht 172.7 cm; Wt 82.6 kg
[~2024-04-21 05:52] MED LIST changes: -PHENYLEPHRINE 10% OPHTH SOL 5ML OS PRN
[2024-04-21] MEDS ORDERED: PHENYLEPHRINE 10% OPHTH SOL 5ML OD PRN (06:00)
[2024-04-21] MEDS: TROPICAMIDE 1% OPHTH SOLN 15ML OD SCH (07:13)
[2024-04-21] MEDS: LIDOCAINE 3.5 % 1ML OPHTH TOPICAL GEL OU ONE (07:13)
[2024-04-21] MEDS: PHENYLEPHRINE 2.5% OPHTH SOL 2ML OD SCH (07:13)
[2024-04-21] MEDS: CYCLOPENTOLATE 1% OPHTH SOLN 2ML BTL OD SCH (07:13)
[2024-04-21] MEDS: OFLOXACIN 0.3 % (OCUFLOX) OPTH SOL 5ML OD ONE (07:13)
[2024-04-21] MEDS ORDERED: MIDAZOLAM INJ 2MG/2ML VIAL As Ordered ONE (08:22)
[2024-04-21] MEDS ORDERED: fentaNYL 100 MCG/2 ML INJECTION As Ordered ONE (08:22)
[2024-04-21] MEDS: BSS IRRIG/VANCO(10MG)/TOBRA(5MG)/EPINEPH(1:1000-0.5CC)500ML BAG-ORONLY As Ordered ONE (10:08)
[2024-04-21] MEDS: LIDOCAINE 1% SDV 5ML VIAL As Ordered ONE (10:08)
[2024-04-21] MEDS: CEFUROXIME 1MG/0.1ML INTRACAMERAL INJ As Ordered ONE (10:14)
[2024-04-21 10:21] VITALS: BP 111/56; TEMP 97.1; O2SAT 62
== END 2024-04-21 10:45 | disposition home or self-care (01) ==
LOC: M SDC 05:52
PROVIDERS: ATTEND Ophthalmology
DX: H25.11 Age-related nuclear cataract, right eye (principal); G40.409 Other generalized epilepsy and epileptic syndromes, not intractable, without status epilepticus; E78.00 Pure hypercholesterolemia, unspecified; J45.909 Unspecified asthma, uncomplicated; Z79.899 Other long term (current) drug therapy; Z90.49 Acquired absence of other specified parts of digestive tract; Z90.711 Acquired absence of uterus with remaining cervical stump; F90.9 Attention-deficit hyperactivity disorder, unspecified type; F41.9 Anxiety disorder, unspecified; F32.A Depression, unspecified
CPT/HCPCS: 66984; J0697; J2250; J3010

== ENCOUNTER → 2024-06-10 | Outpatient (CLI) | payer OTHER ==
[2024-06-10 12:49] LABS: BASO % 0.2 % (0.0-1.0); HEMATOCRIT 42.4 % (36.0-47.0); HEMOGLOBIN 13.7 g/dl (12.0-15.5); LYMPH # 3.4 10^3/uL (1.5-5.0); MEAN CORPUSCULAR HEMOGLOBIN 29.3 pg (27.0-33.0); MEAN CORPUSCULAR HGB CONC 32.3 g/dl (32.0-36.5); MEAN CORPUSCULAR VOLUME 90.8 fl (80.0-96.0); MONO # 0.7 10^3/uL (0.0-0.8); MONO % 7.7 % (2.0-8.0); NEUTROPHILS # 4.8 10^3/uL (1.5-8.5); NEUTROPHILS % 53.9 % (36.0-66.0); PLATELET COUNT, AUTOMATED 308 10^3/uL (150-450); RED BLOOD COUNT 4.67 10^6/uL (4.00-5.40); WHITE BLOOD COUNT 8.9 10^3/uL (4.0-10.0)
[2024-06-10 13:24] LABS: TOTAL IRON BINDING CAPACITY 350 UG/DL (250-425)
[2024-06-10 13:25] LABS: ALKALINE PHOSPHATASE 122 U/L (35-104); ALT/SGPT 35 U/L (7.0-40); AST/SGOT 32 U/L (<34); BILIRUBIN,TOTAL 0.4 MG/DL (0.3-1.2); BLOOD UREA NITROGEN 26 MG/DL (9-23); CALCIUM LEVEL 9.7 MG/DL (8.3-10.6); CARBON DIOXIDE LEVEL 30 MMOL/L (20-31); CHLORIDE LEVEL 99 MMOL/L (98-107); CHOLESTEROL LEVEL 198 MG/DL (<200); CHOLESTEROL RISK RATIO 3.23 (<5); CREATININE FOR GFR 0.82 MG/DL (0.55-1.30); GLOMERULAR FILTRATION RATE > 60.0 (>45); GLUCOSE, FASTING 93 MG/DL (74-106); HDL CHOLESTEROL 61.2 MG/DL (>40); IRON (FE) 66 UG/DL (50-170); LDL CHOLESTEROL 95.4 MG/DL (<100); NON-HDL-C 136.8 MG/DL; PERCENT SATURATION 18.9 % (13.2-45.0); POTASSIUM SERUM 5.1 MMOL/L (3.5-5.1); SODIUM LEVEL 137 MMOL/L (136-145); TOTAL PROTEIN 7.7 G/DL (5.7-8.2); TRIGLYCERIDES LEVEL 207 MG/DL (<150)
[2024-06-10 13:26] LABS: VITAMIN B12 LEVEL 546 PG/ML (211-911)
[2024-06-10 13:29] LABS: FOLATE > 24.0 NG/ML (>5.4)
== END ==
LOC: M RAD 11:58
PROVIDERS: ATTEND Nurse Practitioner Family
DX: M25.512 Pain in left shoulder (principal); D64.9 Anemia, unspecified; E66.3 Overweight

== ENCOUNTER → 2024-07-27 | Outpatient (CLI) | payer OTHER | LOC: M WHC 13:19 | PROVIDERS: ATTEND Family Medicine Addiction Medicine | DX: R92.8 Other abnormal and inconclusive findings on diagnostic imaging of breast (principal) ==

== ENCOUNTER 2025-02-21 16:08 | Emergency (ER) | payer OTHER ==
[~2025-02-21] VITALS: Ht 175.3 cm; Wt 77.3 kg
[~2025-02-21 16:08] MED LIST changes: -IBUP-1022 PO; +IBUP600T42 PO
[2025-02-21 20:15] VITALS: BP 154/70; TEMP 98.2; O2SAT 99
== END 2025-02-21 20:26 | disposition left against medical advice (07) ==
LOC: M ED 16:08
DX: D16.4 Benign neoplasm of bones of skull and face (principal); G40.909 Epilepsy, unspecified, not intractable, without status epilepticus; F17.210 Nicotine dependence, cigarettes, uncomplicated; F10.10 Alcohol abuse, uncomplicated; Z79.51 Long term (current) use of inhaled steroids; Z79.899 Other long term (current) drug therapy; Z53.9 Procedure and treatment not carried out, unspecified reason

== ENCOUNTER → 2025-03-24 | Outpatient (REF) | payer OTHER, MEDICARE ==
[2025-03-24 13:55] LABS: BASO # 0.0 10^3/uL (0.0-0.2); BASO % 0.4 % (0.0-1.0); EOS # 0.0 10^3/uL (0.0-0.5); EOS % 0.1 % (0.0-3.0); LYMPH # 2.8 10^3/uL (1.5-5.0); LYMPH % 34.3 % (24.0-44.0); MONO # 0.8 10^3/uL (0.0-0.8); MONO % 10.1 % (2.0-8.0); NEUTROPHILS # 4.4 10^3/uL (1.5-8.5); NEUTROPHILS % 54.9 % (36.0-66.0); PLATELET COUNT, AUTOMATED 295 10^3/uL (150-450)
[2025-03-24 14:28] LABS: ALT/SGPT 22.0 U/L (7.0-40); AST/SGOT 23.0 U/L (<34); CALCIUM LEVEL 8.7 MG/DL (8.3-10.6); CARBON DIOXIDE LEVEL 30.0 MMOL/L (20-31); CHLORIDE LEVEL 102.0 MMOL/L (98-107); CHOLESTEROL LEVEL 171.0 MG/DL (<200); CHOLESTEROL RISK RATIO 3.07 (<5); CREATININE FOR GFR 0.81 MG/DL (0.55-1.30); GLOMERULAR FILTRATION RATE 80.5 (>45); IRON (FE) 64.0 UG/DL (50-170); LDL CHOLESTEROL 74.4 MG/DL (<100); NON-HDL-C 115.4 MG/DL; POTASSIUM SERUM 4.8 MMOL/L (3.5-5.1); SODIUM LEVEL 137.0 MMOL/L (136-145); TRIGLYCERIDES LEVEL 205.0 MG/DL (<150)
[2025-03-24 14:29] LABS: TOTAL 25(OH) VITAMIN D 29.3 NG/ML (20.0-100.0)
== END ==
LOC: M LAB REF 12:28
PROVIDERS: ATTEND Student in an Organized Health Care Education/Training Program
DX: E78.5 Hyperlipidemia, unspecified (principal); E55.9 Vitamin D deficiency, unspecified; D64.9 Anemia, unspecified; Z68.29 Body mass index [BMI] 29.0-29.9, adult

== ENCOUNTER → 2025-04-01 | Outpatient (REF) | payer OTHER, MEDICARE | LOC: M LAB REF 16:07 | PROVIDERS: ATTEND Student in an Organized Health Care Education/Training Program | DX: R82.90 Unspecified abnormal findings in urine (principal) ==